=== PATIENT | male | born 1935 | race Caucasian/White ===

== ENCOUNTER 2016-05-05 14:28 | Emergency (ER) | payer MEDICARE ==
[~2016-05-05] VITALS: Ht 170.2 cm; Wt 87.1 kg
[~2016-05-05 14:28] MED LIST: ACET500T68 PO; ACYC400T PO; ALBU2.5V13 IH; ASPI81TA2 PO; BUDE10.2 IH; CARV3.122 PO; CYAN10005 PO; DOXA4TAB3 PO; FLUT16SP NS; FURO40TA4 PO; HYDR-2762 PO; HYDR-2868 PO; HYDR-963 PO; LEVO500T38 PO; MIRT7.5T8 PO; MONT10TA6 PO; MULT-658 PO; OMEP40CA5 PO; POTA20TA12 PO; PRED10TA16 PO; PRED20TA PO; SIMV20TA3 PO
--- NOTE | 2016-05-05 15:20 | PHYS DOC ---
Past Medical History Past Medical History: Anemia, CHF, COPD, DVT, Hypertension Past Surgical History: Appendectomy, Other Additional Past Surgical Histo: cardiac stents Alcohol Use: None Drug Use: None Adult General Chief Complaint Chief Complaint: LOWER BACK PAIN HPI HPI Patient is a 81 year old male who drove himself to the ED with the complaint of severe low back pain for about 4 or 5 days. It did not begin suddenly. He cannot remember how it began. He did not injure himself. It's been increasingly severe over that time. He can't hardly get his shoes or socks on because it hurts so much. It does not radiate down either leg. He's had no weakness of the legs. No incontinence. He had back surgery about 5 years ago, Dr. Martin, thinks it had something to do with the disc. Patient says he takes hydrocodone 10/325, he took one this morning and 1 about 30 minutes prior to me seeing him, and it is not helping. He said what does help his back is when he is on a high-dose of prednisone. He has COPD and when he gets wheezy they put him on a prednisone taper when his prednisone dose is on the higher side, it helps his back pain. He just got off a prednisone taper about 3 or 4 days ago, still on 5 mg daily. I think maybe that his baseline dose. His breathing is fine. He denies UTI symptoms. Denies fever or chills. Denies injury. Denies radiation of the pain. PCP Dr. Ashley Fierro Review of Systems Review of Systems Constitutional: Denies fever or chills [] Eyes: Denies change in visual acuity, redness, or eye pain [] HENT: Denies nasal congestion or sore throat [] Respiratory: Denies cough or shortness of breath , he has COPD, it is currently not bothering him Cardiovascular: Denies chest pain GI: Denies abdominal pain, nausea, vomiting, bloody stools or diarrhea [] : Denies dysuria or hematuria or urinary incontinence Musculoskeletal: As in history of present illness Integument: Denies rash or skin lesions [] Neurologic: Denies headache, focal weakness or sensory changes [] Current Medications Current Medications Current Medications Medications (Trade) Dose Ordered Sig/Juhi Start Time Stop Time Status Last Admin Dose Admin Ketorolac Tromethamine (Toradol Im) 30 mg 1X ONCE 05/05/16 15:30 05/05/16 15:34 DC 05/05/16 16:02 30 MG Morphine Sulfate 5 mg 1X ONCE 05/05/16 15:30 05/05/16 15:35 DC 05/05/16 16:01 5 MG Allergies Allergies Allergies Coded Allergies Type Severity Reaction Last Updated Verified Sulfa (Sulfonamide Antibiotics) Allergy Intermediate 03/24/14 Yes clopidogrel Allergy Intermediate 03/24/14 Yes valsartan Allergy Intermediate 03/24/14 Yes warfarin Allergy Intermediate 03/24/14 Yes Physical Exam Physical Exam Constitutional: Well developed, well nourished, no acute distress, non-toxic appearance. Alert, mentating normally. He has difficulty sitting up on the cart or turning to the side for exam because of the back pain. HENT: Normocephalic, atraumatic, bilateral external ears normal, bilateral hearing aids, nose normal. [] Eyes: conjunctiva normal, no discharge. [] Neck: Normal range of motion, no stridor. [] Cardiovascular:Heart rate regular rhythm, no murmur [] Lungs & Thorax: Bilateral breath sounds clear to auscultation [] Abdomen: Bowel sounds normal, soft, no tenderness, no masses, no pulsatile masses. Obese but nondistended. Skin: Warm, dry, no erythema, no rash. [] Back: No tenderness, no CVA tenderness. No skin abnormalities over the area of pain. Patient indicates the area of pain to the right of the lumbar spine, more or less over the right posterior superior iliac spine. There is no area of tenderness or palpable muscle tenderness, no swelling or fluctuance, in the area. Extremities: No tenderness, no cyanosis, no clubbing, ROM intact, no edema. Both lower extremities have normal 5/5 or see flexion and plantar flexion strength. Neurologic: Alert and oriented X 3, normal motor function, normal sensory function, no focal deficits noted. [] Current Patient Data Vital Signs Vital Signs Date Time Temp Pulse Resp B/P Pulse Ox O2 Delivery O2 Flow Rate FiO2 05/05/16 16:06 64 18 151/75 95 05/05/16 14:55 98.5 Room Air 98.5 Lab Values Laboratory Tests Test 05/05/16 15:15 Urine Collection Type Unknown Urine Color Yellow Urine Clarity Clear Urine pH 6.0 Urine Specific Mather 1.020 Urine Protein Negativemg/dL (NEG-TRACE) Urine Glucose (UA) Negativemg/dL (NEG) Urine Ketones (Stick) Negativemg/dL (NEG) Urine Blood Negative (NEG) Urine Nitrite Negative (NEG) Urine Bilirubin Negative (NEG) Urine Urobilinogen Dipstick 0.2mg/dL (0.2 mg/dL) Urine Leukocyte Esterase Negative (NEG) Urine RBC 0/HPF (0-2) Urine WBC 0/HPF (0-4) Urine Squamous Epithelial Cells Occ/LPF Urine Bacteria 0/HPF (0-FEW) Urine Mucus Slight/LPF EKG EKG [] Radiology/Procedures Radiology/Procedures Lumbar spine and AP pelvis x-rays read by me. No acute findings are identified. [] Course & Med Decision Making Course & Med Decision Making Pertinent Labs and Imaging studies reviewed. (See chart for details) 81-year-old male with what sounds like an exacerbation of chronic or recurrent lower back pain of a musculoskeletal type. I offered him pain medication in the ED but he drove himself here and I told him he will not be able to drive home, he is considering whether he wants to do that and call for a ride. In the meantime we will check urinalysis and x-rays. The patient ended up deciding to call his son and so was given an injection of Toradol 30 mg IM and morphine 5 mg IM. I reviewed his previous kidney function so I cut his Toradol dosing in half. Urinalysis negative for acute findings. Lumbar and pelvis x-rays negative for acute findings. I believe the safest short-term solution would be to increase his prednisone dose again and started him on a taper and encourage him to see Dr. Fierro as soon as possible. He may need further imaging like an MRI, may need referral to pain management, or it may be best to just see if this prednisone taper works for him, we will leave that up to him to discuss with Dr. Fierro. [] Dragon Disclaimer Dragon Disclaimer This electronic medical record was generated, in whole or in part, using a voice recognition dictation system. Departure Departure Impression: Primary Impression: Low back pain Disposition: 01 HOME, SELF-CARE Condition: STABLE Referrals: MARCELLUS FIERRO MD (PCP) Patient Instructions: Back Pain, Adult, [id number] Additional Instructions: As we discussed, you should not drive within 6-8 hours after taking a dose of hydrocodone or after the opiate injection that you were given here in the emergency department. Even if you do not feel sleepy, these medications will they'll your reflexes. Today, x-rays and urine test showed nothing that would be causing your pain. I believe it is possibly a pinched nerve or disc type of back pain or arthritis related. Prednisone is a good anti-inflammatory that is safe and will not hurt your kidneys. I'd like you to start an increased dose of prednisone with a taper as follows: Today, Friday, 40 mg, this was given in the emergency department Friday, Friday, Friday 40 mg Next 4 days, 30 mg Next 4 days, 20 mg Next 4 days, 10 mg Then return to 5 mg daily Call tomorrow morning for an appointment with Dr. Fierro as soon as possible to follow-up for possibly more tests or referral to pain management. CAPRICE VEAG MD May 05, 2016 15:20
[2016-05-05] MEDS ORDERED: MORPHINE SULFATE 10 MG/ML VIAL. IM ONE (15:30)
[2016-05-05] MEDS ORDERED: KETOROLAC TROMETHAMINE 60 MG/2 ML SYRINGE. IM ONE (15:30)
[2016-05-05 15:34] LABS: BILIRUBIN,URINE NEGATIVE (NEG); GLUCOSE,URINE NEGATIVE (NEG); NITRITE,URINE NEGATIVE (NEG); PROTEIN,URINE NEGATIVE (NEG-TRACE); UROBILINOGEN,URINE 0.2 mg/dL (0.2 mg/dL)
[2016-05-05 15:59] LABS: BACTERIA,URINE 0 /HPF (0-FEW); RBC,URINE 0 /HPF (0-2); SQUAMOUS EPITHELIAL CELL,UR OCC /LPF; WBC,URINE 0 /HPF (0-4)
[2016-05-05] MEDS ORDERED: PREDNISONE 10 MG TABLET PO ONE (16:15)
--- NOTE | 2016-05-05 16:29 | RAD ---
Lumbar spine, 5 views, 05/05/2016: History: Back pain The bony structures are demineralized. The lumbar vertebral heights are well-maintained. There is moderate disc space narrowing at L4-5 with a vacuum disc phenomena and moderate marginal spurring. There are mild scattered spurs at other levels in the mid and upper lumbar spine. There are mild degenerative changes involving facet joints in the lower lumbar spine. There is no evidence of spondylolysis. Severe aortoiliac calcific plaquing is present. A vascular stent is present at the right common iliac level. An inferior vena cava filter is present at L2. IMPRESSION: 1. Moderate multilevel degenerative change, most severe at the L4-5 disc level. 2. No acute bony abnormality is detected.
--- NOTE | 2016-05-05 16:31 | RAD ---
Pelvis, single view, 05/05/2016: History: Pain No fracture or destructive bony lesion is seen. The hip joint spaces are fairly well-preserved with only mild marginal spurring. Degenerative changes are noted in the lower lumbar spine. Extensive aortoiliac calcific plaquing is present. IMPRESSION: No acute pelvic abnormality is detected.
[2016-05-05 16:35] VITALS: BP 151/78
== END 2016-05-05 16:37 | disposition home or self-care (01) ==
LOC: ER 14:28
DX: M54.5 Low back pain (principal); J44.9 Chronic obstructive pulmonary disease, unspecified; I11.0 Hypertensive heart disease with heart failure; I50.9 Heart failure, unspecified; Z95.5 Presence of coronary angioplasty implant and graft; Z88.8 Allergy status to other drugs, medicaments and biological substances; Z88.2 Allergy status to sulfonamides; Z86.718 Personal history of other venous thrombosis and embolism
CPT/HCPCS: 72110; 72170; 81001; 96372; 99285; J1885; J2270; J7512

== ENCOUNTER → 2017-07-29 | Outpatient (CLI) | payer BC | END | disposition home or self-care (01) | LOC: RAD 12:27 | DX: J18.9 Pneumonia, unspecified organism (principal); R91.8 Other nonspecific abnormal finding of lung field | CPT/HCPCS: 71046 ==

== ENCOUNTER 2017-08-30 15:05 | Emergency (ER) | payer BC ==
[2017-08-30] MEDS: IV NORMAL SALINE 500ML BAG 500 ML IV (15:45)
[2017-08-30 15:52] LABS: BILIRUBIN,URINE MODERATE (NEG); CLARITY,URINE CLEAR; COLOR,URINE AMBER; GLUCOSE,URINE NEGATIVE (NEG); NITRITE,URINE NEGATIVE (NEG); PH,URINE 5.5; PROTEIN,URINE NEGATIVE (NEG-TRACE)
[2017-08-30 15:59] LABS: ADD MAN DIFF? NO
[2017-08-30] MEDS: IPRATRPIUM/ALBUTEROL 0.5/2.5MG 3 ML NEBU. NEB (15:59)
[2017-08-30 16:02] LABS: BASO # 0.1 x10^3/uL (0.0-0.2); BASO % 1 % (0-3); EOS # 1.2 x10^3/uL (0.0-0.7); EOS % 14 % (0-3); HEMATOCRIT 31.7 % (39.0-53.0); HEMOGLOBIN 10.6 g/dL (13.0-17.5); LYMPH # 1.2 x10^3/uL (1.0-4.8); LYMPH % 14 % (24-48); MEAN CORPUSCULAR HEMOGLOBIN 31 pg (25-35); MEAN CORPUSCULAR HGB CONC 33 g/dL (31-37); MEAN CORPUSCULAR VOLUME 94 fL (79-100); MONO # 0.6 x10^3/uL (0.0-1.1); MONO % 7 % (0-9); NEUT # 5.6 x10^3uL (1.8-7.7); NEUT % 64 % (31-73); PLATELET COUNT 200 x10^3/uL (140-400); RED BLOOD COUNT 3.37 x10^6/uL (4.30-5.70); RED CELL DISTRIBUTION WIDTH 14.4 % (11.5-14.5); WHITE BLOOD COUNT 8.7 x10^3/uL (4.0-11.0)
[2017-08-30 16:05] LABS: BACTERIA,URINE 0 /HPF (0-FEW); HYALINE CASTS, URINE MODERATE /HPF; RBC,URINE 0 /HPF (0-2); WBC,URINE OCC /HPF (0-4)
[2017-08-30 16:11] LABS: ANION GAP 10 (6-14); BLOOD UREA NITROGEN 20 mg/dL (8-26); BUN/CREATININE RATIO 10 (6-20); CALCIUM 9.1 mg/dL (8.5-10.1); CARBON DIOXIDE 28 mmol/L (21-32); CHLORIDE 104 mmol/L (98-107); CREATININE 2.1 mg/dL (0.7-1.3); GFR 30.2; GLUCOSE 102 mg/dL (70-99); POTASSIUM 4.6 mmol/L (3.5-5.1); SODIUM 142 mmol/L (136-145)
[2017-08-30 16:18] LABS: ALBUMIN 3.1 g/dL (3.4-5.0); ALBUMIN/GLOBULIN RATIO 0.8 (1.0-1.7); ALK PHOS 76 U/L (46-116); ALT (SGPT) 18 U/L (16-63); AST (SGOT) 36 U/L (15-37); CREATINE KINASE 155 U/L (39-308); LIPASE 100 U/L (73-393); TOTAL BILIRUBIN 0.8 mg/dL (0.2-1.0); TOTAL PROTEIN 7.2 g/dL (6.4-8.2)
[2017-08-30 16:20] LABS: LACTIC ACID 1.5 mmol/L (0.4-2.0); TROPONINI < 0.017 ng/mL (0.000-0.055)
[2017-08-30] MEDS: predniSONE 20 MG TABLET PO (16:49)
[2017-08-30] MEDS: DOXYCYCLINE HYCLATE 100 MG TABLET PO (16:49)
== END 2017-08-30 17:12 | disposition home or self-care (01) ==
LOC: ER 15:05
DX: J44.9 Chronic obstructive pulmonary disease, unspecified (principal); I11.0 Hypertensive heart disease with heart failure; I50.9 Heart failure, unspecified; E78.00 Pure hypercholesterolemia, unspecified; Z90.49 Acquired absence of other specified parts of digestive tract; Z88.2 Allergy status to sulfonamides; Z88.8 Allergy status to other drugs, medicaments and biological substances
CPT/HCPCS: 36415; 71045; 80053; 81001; 82550; 83605; 83690; 84484; 85025; 87040; 93005; 94640; 96360; 99285; J7040; J7512; J7620

== ENCOUNTER 2017-12-27 20:33 | Emergency (ER) | payer BC ==
[~2017-12-27] VITALS: Ht 165.1 cm; Wt 88.5 kg
[~2017-12-27 20:33] MED LIST changes: -ALBU2.5V13 IH; +ALBU2.5V14 IH; +ASPI-630 PO; -ASPI81TA2 PO; +DOXY100T9 PO; -LEVO500T38 PO; +LEVO500T59 PO; +PRED-220 PO
[2017-12-27 21:09] LABS: BILIRUBIN,URINE SMALL (NEG); CLARITY,URINE CLEAR; COLOR,URINE YELLOW; NITRITE,URINE NEGATIVE (NEG); PROTEIN,URINE NEGATIVE (NEG-TRACE); UROBILINOGEN,URINE 0.2 mg/dL (0.2 mg/dL)
[2017-12-27 21:22] LABS: BACTERIA,URINE 0 /HPF (0-FEW); HYALINE CASTS, URINE MANY /HPF; RBC,URINE 0 /HPF (0-2); WAXY CASTS,URINE OCCASIONAL /HPF
[2017-12-27 21:25] LABS: BASO % 1 % (0-3); EOS # 0.6 x10^3/uL (0.0-0.7); EOS % 12 % (0-3); HEMATOCRIT 27.8 % (39.0-53.0); HEMOGLOBIN 9.5 g/dL (13.0-17.5); LYMPH # 1.4 x10^3/uL (1.0-4.8); LYMPH % 25 % (24-48); MEAN CORPUSCULAR HEMOGLOBIN 30 pg (25-35); MEAN CORPUSCULAR HGB CONC 34 g/dL (31-37); MEAN CORPUSCULAR VOLUME 89 fL (79-100); MONO # 0.8 x10^3/uL (0.0-1.1); MONO % 14 % (0-9); NEUT # 2.6 x10^3uL (1.8-7.7); NEUT % 48 % (31-73); PLATELET COUNT 154 x10^3/uL (140-400); RED BLOOD COUNT 3.14 x10^6/uL (4.30-5.70); RED CELL DISTRIBUTION WIDTH 14.6 % (11.5-14.5); WHITE BLOOD COUNT 5.5 x10^3/uL (4.0-11.0)
[2017-12-27 21:37] LABS: CALCIUM 9.1 mg/dL (8.5-10.1); CREATININE 2.1 mg/dL (0.7-1.3); GFR 30.2; POTASSIUM 4.4 mmol/L (3.5-5.1)
[2017-12-27 21:42] LABS: ALBUMIN 3.3 g/dL (3.4-5.0); ALBUMIN/GLOBULIN RATIO 0.8 (1.0-1.7); TOTAL BILIRUBIN 0.6 mg/dL (0.2-1.0); TOTAL PROTEIN 7.2 g/dL (6.4-8.2)
--- NOTE | 2017-12-27 22:13 | RAD ---
PQRS Compliance statement: One or more of the following individualized dose reduction techniques were utilized for this examination: 1. Automated exposure control. 2. Adjustment of the mA and/or kV according to patient size. 3. Use of iterative reconstruction technique. Indication:severe rt flank pain, prior sent TECHNIQUE: CT abdomen and pelvis without IV contrast with multiplanar reformats. COMPARISON: 07/02/2017 FINDINGS: Limited evaluation of solid abdominal and pelvic organs due to lack of IV contrast. Heart is normal in size. No pericardial or pleural effusion. Motion artifact is seen in the lung bases however lung bases appear grossly clear. Stable low attenuating lesion is seen in segment IVb of the liver measuring 3.7 x 2.8 cm. Otherwise, noncontrast appearance of the liver, spleen, pancreas, adrenals within normal limits. Concentrated bile or sludge is seen in the gallbladder. No hydronephrosis or radiopaque renal stones. Stable partially exophytic 2.8 x 2.3 cm low attenuating lesion is seen in the right kidney most likely a simple cyst. Another 2.8 x 2.8 cm low attenuating lesion seen in the inferior pole of the right kidney demonstrating slightly higher attenuation. Infrarenal IVC filter noted. No free pelvic fluid or ascites. No enlarged retroperitoneal or pelvic adenopathy. Diffuse moderate atherosclerotic calcifications are seen of the abdominal aorta. There is mild ectasia of the abdominal aorta just before bifurcation measuring 3 cm in diameter. No bowel obstruction. Diffuse colonic diverticulosis. Appendix not visualized most is surgically absent. Stable posterior bladder diverticulum is seen. Circumferential urinary bladder wall thickening seen. The prostate and seminal vesicles show no large mass. No pneumoperitoneum or pneumatosis intestinalis. No suspicious bony lesion. Stable mild loss of L3 vertebral body height. IMPRESSION: Limited evaluation of solid abdominal and pelvic organs due to lack of IV contrast. 1. No nephrolithiasis or hydronephrosis. Couple of low attenuating lesions in the right kidney most likely simple and minimally comminuted cysts. However, one of the cysts demonstrate scattered high attenuation. Nonemergent ultrasound recommended. 2. Stable low attenuating lesion in liver. Differential diagnoses include cystic biliary hamartoma or hemangioma. Nonemergent Ultrasound of the liver recommended. 3. Diffuse colonic diverticulosis without diverticulitis. 4. Slight circumferential wall thickening of the urinary bladder. Findings may be secondary to suboptimal distention or cystitis. Clinically correlate with urinalysis. 5. Diffuse atherosclerotic calcifications of the abdominal aorta and bilateral iliac arteries with mild ectasia of the infrarenal aorta. Electronically signed by: Bora Lopez DO (12/27/2017 10:10 PM) [facility]
--- NOTE | 2017-12-27 22:16 | RAD ---
PQRS Compliance Statement: One or more of the following individualized dose reduction techniques were utilized for this examination: 1. Automated exposure control 2. Adjustment of the mA and/or kV according to patient size 3. Use of iterative reconstruction technique CT head and cervical spine without contrast 12/27/2017 9:41 PM INDICATION: Weakness and neck pain with recent falls. COMPARISON: CT cervical spine December 10, 2012 TECHNIQUE: Multiple axial CT images of the head were obtained from skull base through the vertex without intravenous contrast. Multiple axial CT images of the cervical spine were obtained without intravenous contrast. Coronal and sagittal reformats are provided. FINDINGS: Head: Ventricles, sulci and basal cisterns are prominent compatible with age-related degenerative changes. Low-attenuation in the periventricular white matter is suggestive of chronic small vessel ischemic changes. There is no hydrocephalus. Smith-white matter differentiation is normal. There is no acute intracranial hemorrhage. There is no mass, mass effect or midline shift. Posterior fossa is normal in appearance. Visualized portions of the orbits are normal. Opacification of the left maxillary sinus with atelectasis of the sinus. There is a left mastoid effusion. Scalp and calvaria are normal. Cervical spine: There is minimal retrolisthesis of C2 on C3 and C3 on C4 and C4 on C5. Skull base is intact. Craniocervical junction is normal in appearance. Atlantoaxial articulation is normal. Vertebral body heights are maintained without evidence for acute fracture. There is moderate disc height loss at C2-C3, C3-C4 and C4-C5. Endplate sclerosis and remodeling is noted at C3-C4. There is moderate left neuroforaminal stenosis at C3-C4 secondary to posterior disc osteophyte complex, facet and uncovertebral joint disease. There is mild osseous neuroforaminal stenosis. At C4-C5, there is a posterior disc osteophyte complex, facet and uncovertebral joint disease resulting in moderate bilateral neuroforaminal stenosis and mild to moderate spinal canal stenosis. At C5-C6, there is a posterior disc osteophyte complex with facet and uncovertebral joint disease resulting in mild to moderate left and mild right neuroforaminal stenosis and mild spinal canal stenosis. There is no prevertebral soft tissue swelling. Thyroid gland is normal in appearance. Right apical pleural-parenchymal scarring is identified. Atherosclerotic calcifications at the carotid bifurcations noted IMPRESSION: 1. No acute intracranial hemorrhage. Generalized cerebral volume loss. Low-attenuation in the periventricular white matter is suggestive of chronic small vessel ischemic changes. 2. No acute fracture of the cervical spine. Moderate cervical spondylosis with multilevel retrolisthesis. Electronically signed by: Latosha Christianson MD (12/27/2017 10:13 PM) [id number]
[2017-12-27] MEDS ORDERED: HYDR-2758 PO (23:24)
--- NOTE | 2017-12-27 23:25 | PHYS DOC ---
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 He complains of right flank pain, neck pain, and tremors in his bilateral hands. Patient states that the flank pain began yesterday, the neck pain began today, and the tremors in his hands began approximately 3 weeks ago. He denies any fever, nausea, vomiting, diarrhea, abdominal pain, dysuria, hematuria, shortness of breath, or chest pain. He states that he has had difficulty initiating his urine stream for the last 2-3 weeks. Patient states that the flank pain increases with movement, it does not radiate into either of his legs. He denies any weakness, numbness, or tingling. States that he tripped and fell 2 weeks ago. He denies any complaints from the fall. Review of Systems Review of Systems Constitutional: Denies fever or chills [] Eyes: Denies change in visual acuity, redness, or eye pain [] HENT: Denies nasal congestion or sore throat, reports neck pain [] Respiratory: Denies cough or shortness of breath [] Cardiovascular: Denies chest pain or palpitations GI: Denies abdominal pain, nausea, vomiting, bloody stools or diarrhea [] : Denies dysuria,increased urine frequency, or hematuria; reports difficulty initiating urine stream x2-3 weeks and R flank pain Musculoskeletal: Denies joint pain, reports right low back pain Integument: Denies rash or skin lesions [] Neurologic: Denies headache, focal weakness or sensory changes [] All other systems were reviewed and found to be within normal limits, except as documented in this note. Current Medications Current Medications Current Medications Medications (Trade) Dose Ordered Sig/Juhi Start Time Stop Time Status Last Admin Dose Admin Acetaminophen/ Hydrocodone Bitart (Lortab 5/325) 1 tab 1X ONCE 12/27/17 23:30 12/27/17 23:31 DC 12/27/17 23:29 1 TAB Allergies Allergies Allergies Coded Allergies Type Severity Reaction Last Updated Verified Sulfa (Sulfonamide Antibiotics) Allergy Intermediate 03/24/14 Yes clopidogrel Allergy Intermediate 03/24/14 Yes valsartan Allergy Intermediate 03/24/14 Yes warfarin Allergy Intermediate 03/24/14 Yes Physical Exam Physical Exam Constitutional: Well developed, well nourished, no acute distress, non-toxic appearance. [] HENT: Normocephalic, atraumatic, bilateral external ears normal, oropharynx moist, no oral exudates, nose normal. [] Eyes: conjunctiva normal, no discharge. [] Neck: Normal range of motion, no bony tenderness, supple, no stridor, chin to chest normal. [] Cardiovascular:Heart rate regular rhythm, no murmur [] Lungs & Thorax: Bilateral breath sounds clear to auscultation [] Abdomen: Bowel sounds normal, soft, no tenderness, no masses, no pulsatile masses. [] Skin: Warm, dry, no erythema, no rash. [] Back: R lateral low back pain to palpation Extremities: No tenderness, no cyanosis, no edema. [] Neurologic: Alert and oriented X 3, normal motor function, normal sensory function, no focal deficits noted. [] Psychologic: Affect normal, judgement normal, mood normal. [] Current Patient Data Vital Signs Vital Signs Date Time Temp Pulse Resp B/P (MAP) Pulse Ox O2 Delivery O2 Flow Rate FiO2 12/27/17 23:30 79 20 152/72 (98) 98 Room Air 12/27/17 20:35 99.2 99.2 Lab Values Laboratory Tests Test 12/27/17 20:38 12/27/17 21:15 Urine Collection Type Unknown Urine Color Yellow Urine Clarity Clear Urine pH 5.0 Urine Specific [place] 1.020 Urine Protein Negative mg/dL (NEG-TRACE) Urine Glucose (UA) Negative mg/dL (NEG) Urine Ketones (Stick) Negative mg/dL (NEG) Urine Blood Negative (NEG) Urine Nitrite Negative (NEG) Urine Bilirubin Small (NEG) Urine Urobilinogen Dipstick 0.2 mg/dL (0.2 mg/dL) Urine Leukocyte Esterase Negative (NEG) Urine RBC 0 /HPF (0-2) Urine WBC 1-4 /HPF (0-4) Urine Bacteria 0 /HPF (0-FEW) Urine Hyaline Casts Many /HPF Urine Waxy Casts Occasional /HPF Urine Mucus Marked /LPF White Blood Count 5.5 x10^3/uL (4.0-11.0) Red Blood Count 3.14 x10^6/uL (4.30-5.70) L Hemoglobin 9.5 g/dL (13.0-17.5) L Hematocrit 27.8 % (39.0-53.0) L Mean Corpuscular Volume 89 fL (79-100) Mean Corpuscular Hemoglobin 30 pg (25-35) Mean Corpuscular Hemoglobin Concent 34 g/dL (31-37) Red Cell Distribution Width 14.6 % (11.5-14.5) H Platelet Count 154 x10^3/uL (140-400) Neutrophils (%) (Auto) 48 % (31-73) Lymphocytes (%) (Auto) 25 % (24-48) Monocytes (%) (Auto) 14 % (0-9) H Eosinophils (%) (Auto) 12 % (0-3) H Basophils (%) (Auto) 1 % (0-3) Neutrophils # (Auto) 2.6 x10^3uL (1.8-7.7) Lymphocytes # (Auto) 1.4 x10^3/uL (1.0-4.8) Monocytes # (Auto) 0.8 x10^3/uL (0.0-1.1) Eosinophils # (Auto) 0.6 x10^3/uL (0.0-0.7) Basophils # (Auto) 0.0 x10^3/uL (0.0-0.2) Sodium Level 145 mmol/L (136-145) Potassium Level 4.4 mmol/L (3.5-5.1) Chloride Level 108 mmol/L (98-107) H Carbon Dioxide Level 28 mmol/L (21-32) Anion Gap 9 (6-14) Blood Urea Nitrogen 24 mg/dL (8-26) Creatinine 2.1 mg/dL (0.7-1.3) H Estimated GFR (Cockcroft-Gault) 30.2 BUN/Creatinine Ratio 11 (6-20) Glucose Level 93 mg/dL (70-99) Calcium Level 9.1 mg/dL (8.5-10.1) Total Bilirubin 0.6 mg/dL (0.2-1.0) Aspartate Amino Transferase (AST) 24 U/L (15-37) Alanine Aminotransferase (ALT) 18 U/L (16-63) Alkaline Phosphatase 64 U/L (46-116) Total Protein 7.2 g/dL (6.4-8.2) Albumin 3.3 g/dL (3.4-5.0) L Albumin/Globulin Ratio 0.8 (1.0-1.7) L Laboratory Tests 12/27/17 21:15 Laboratory Tests 12/27/17 21:15 EKG EKG [] Radiology/Procedures Radiology/Procedures PROCEDURE: CT ABDOMEN PELVIS WO CONTRAST PQRS Compliance statement: One or more of the following individualized dose reduction techniques were utilized for this examination: 1. Automated exposure control. 2. Adjustment of the mA and/or kV according to patient size. 3. Use of iterative reconstruction technique. Indication:severe rt flank pain, prior sent TECHNIQUE: CT abdomen and pelvis without IV contrast with multiplanar reformats. COMPARISON: 07/02/2017 FINDINGS: Limited evaluation of solid abdominal and pelvic organs due to lack of IV contrast. Heart is normal in size. No pericardial or pleural effusion. Motion artifact is seen in the lung bases however lung bases appear grossly clear. Stable low attenuating lesion is seen in segment IVb of the liver measuring 3.7 x 2.8 cm. Otherwise, noncontrast appearance of the liver, spleen, pancreas, adrenals within normal limits. Concentrated bile or sludge is seen in the gallbladder. No hydronephrosis or radiopaque renal stones. Stable partially exophytic 2.8 x 2.3 cm low attenuating lesion is seen in the right kidney most likely a simple cyst. Another 2.8 x 2.8 cm low attenuating lesion seen in the inferior pole of the right kidney demonstrating slightly higher attenuation. Infrarenal IVC filter noted. No free pelvic fluid or ascites. No enlarged retroperitoneal or pelvic adenopathy. Diffuse moderate atherosclerotic calcifications are seen of the abdominal aorta. There is mild ectasia of the abdominal aorta just before bifurcation measuring 3 cm in diameter. No bowel obstruction. Diffuse colonic diverticulosis. Appendix not visualized most is surgically absent. Stable posterior bladder diverticulum is seen. Circumferential urinary bladder wall thickening seen. The prostate and seminal vesicles show no large mass. No pneumoperitoneum or pneumatosis intestinalis. No suspicious bony lesion. Stable mild loss of L3 vertebral body height. IMPRESSION: Limited evaluation of solid abdominal and pelvic organs due to lack of IV contrast. 1. No nephrolithiasis or hydronephrosis. Couple of low attenuating lesions in the right kidney most likely simple and minimally comminuted cysts. However, one of the cysts demonstrate scattered high attenuation. Nonemergent ultrasound recommended. 2. Stable low attenuating lesion in liver. Differential diagnoses include cystic biliary hamartoma or hemangioma. Nonemergent Ultrasound of the liver recommended. 3. Diffuse colonic diverticulosis without diverticulitis. 4. Slight circumferential wall thickening of the urinary bladder. Findings may be secondary to suboptimal distention or cystitis. Clinically correlate with urinalysis. 5. Diffuse atherosclerotic calcifications of the abdominal aorta and bilateral iliac arteries with mild ectasia of the infrarenal aorta. [] PROCEDURE: CT HEAD AND CERVICAL SPINE WO RS Compliance Statement: One or more of the following individualized dose reduction techniques were utilized for this examination: 1. Automated exposure control 2. Adjustment of the mA and/or kV according to patient size 3. Use of iterative reconstruction technique CT head and cervical spine without contrast 12/27/2017 9:41 PM INDICATION: Weakness and neck pain with recent falls. COMPARISON: CT cervical spine December 10, 2012 TECHNIQUE: Multiple axial CT images of the head were obtained from skull base through the vertex without intravenous contrast. Multiple axial CT images of the cervical spine were obtained without intravenous contrast. Coronal and sagittal reformats are provided. FINDINGS: Head: Ventricles, sulci and basal cisterns are prominent compatible with age-related degenerative changes. Low-attenuation in the periventricular white matter is suggestive of chronic small vessel ischemic changes. There is no hydrocephalus. Smith-white matter differentiation is normal. There is no acute intracranial hemorrhage. There is no mass, mass effect or midline shift. Posterior fossa is normal in appearance. Visualized portions of the orbits are normal. Opacification of the left maxillary sinus with atelectasis of the sinus. There is a left mastoid effusion. Scalp and calvaria are normal. Cervical spine: There is minimal retrolisthesis of C2 on C3 and C3 on C4 and C4 on C5. Skull base is intact. Craniocervical junction is normal in appearance. Atlantoaxial articulation is normal. Vertebral body heights are maintained without evidence for acute fracture. There is moderate disc height loss at C2-C3, C3-C4 and C4-C5. Endplate sclerosis and remodeling is noted at C3-C4. There is moderate left neuroforaminal stenosis at C3-C4 secondary to posterior disc osteophyte complex, facet and uncovertebral joint disease. There is mild osseous neuroforaminal stenosis. At C4-C5, there is a posterior disc osteophyte complex, facet and uncovertebral joint disease resulting in moderate bilateral neuroforaminal stenosis and mild to moderate spinal canal stenosis. At C5-C6, there is a posterior disc osteophyte complex with facet and uncovertebral joint disease resulting in mild to moderate left and mild right neuroforaminal stenosis and mild spinal canal stenosis. There is no prevertebral soft tissue swelling. Thyroid gland is normal in appearance. Right apical pleural-parenchymal scarring is identified. Atherosclerotic calcifications at the carotid bifurcations noted IMPRESSION: 1. No acute intracranial hemorrhage. Generalized cerebral volume loss. Low-attenuation in the periventricular white matter is suggestive of chronic small vessel ischemic changes. 2. No acute fracture of the cervical spine. Moderate cervical spondylosis with multilevel retrolisthesis. Course & Med Decision Making Course & Med Decision Making Pertinent Labs and Imaging studies reviewed. (See chart for details) Dx neck pain, Flank pain, bilateral tremor of hands. CT head and neck were not concerning for any acute findings. CT abd/pel not concerning for kidney stone, pyelonephritis, hydronephrosis, or acute abdominal process. Urinalysis was negative for UTI, lab work not concerning for increased renal failure, worsening anemia, dehydration, or infection. Discussed these findings with the patient and his family. Pt was offered admission for further evaluation. Pt and family declined admission and opted to go home with pain medication to follow up with PCP next week. Patient verbalized an understanding of home care, medications, follow-up, and return to ED instructions and was in agreement with the plan of care. [] Dragon Disclaimer Dragon Disclaimer This electronic medical record was generated, in whole or in part, using a voice recognition dictation system. Departure Departure Impression: Primary Impression: Neck pain Additional Impressions: Right flank pain Tremor of both hands Disposition: 01 HOME, SELF-CARE Condition: STABLE Referrals: MARCELLUS FIERRO MD (PCP) Patient Instructions: Flank Pain, [id number], Tremor Additional Instructions: Fill the prescription and use it as directed. He may apply heat or ice to the sore areas for comfort. Follow-up with your doctor next week for further evaluation of tremors and pain. Return to the emergency room if symptoms worsen. Scripts Hydrocodone Bit/Acetaminophen (HYDROCODONE-APAP 5-325 ) 1 Each Tablet 1 TAB PO PRN Q6HRS PRN for PAIN for 2 Days, TAB 8 Refills Prov: DOTTY SAPP PHOTOGRAPH EDITOR 12/27/17 Attending Signature Attending Signature I have reviewed the PA/SURVEILLANCE DIRECTOR's note and plan of care. I was available for consultation as needed during the patient's visit in the emergency department. I agree with the clinical impression, plan, and disposition. Problem Qualifiers DOTTY SAPP APRN Dec 27, 2017 23:24 FAUZIA ALLAN DO Dec 28, 2017 04:36
[2017-12-27 23:30] VITALS: BP 152/72
[2017-12-27] MEDS ORDERED: HYDROcodone/APAP 5/325MG 1 TAB TABLET PO ONE (23:30)
== END 2017-12-28 | disposition home or self-care (01) ==
LOC: ER 20:33
DX: R10.9 Unspecified abdominal pain (principal); M54.2 Cervicalgia; R25.1 Tremor, unspecified; J44.9 Chronic obstructive pulmonary disease, unspecified; E78.00 Pure hypercholesterolemia, unspecified; I11.0 Hypertensive heart disease with heart failure; I50.9 Heart failure, unspecified; Z86.718 Personal history of other venous thrombosis and embolism; I25.2 Old myocardial infarction; Z90.89 Acquired absence of other organs; Z95.5 Presence of coronary angioplasty implant and graft; Z88.2 Allergy status to sulfonamides; Z88.8 Allergy status to other drugs, medicaments and biological substances
CPT/HCPCS: 36415; 70450; 72125; 74176; 80053; 81001; 85025; 99285-25

== ENCOUNTER 2018-09-08 16:37 | Inpatient (IN) | payer BC ==
[~2018-09-08] VITALS: Ht 160 cm; Wt 79.9 kg
[~2018-09-08 16:37] MED LIST changes: +ACET325T9 PO; +CARV3.1210 PO; -CARV3.122 PO; +DICL100G18 TP; +HYDR-2761 PO; -HYDR-2762 PO; +HYDR-2765 PO; +HYDR-3135 PO; -HYDR-963 PO; +IRON150C11 PO; +TIZA4TAB PO
[2018-09-08] MEDS ORDERED: methylPREDNISolone SOD SUCC PF 125 MG/2 ML VIAL. IV ONE (17:30)
[2018-09-08] MEDS ORDERED: IPRATRPIUM/ALBUTEROL 0.5/2.5MG 3 ML NEBU. NEB ONE (17:30)
--- NOTE | 2018-09-08 17:32 | PHYS DOC ---
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 Patient states that he had having increasing shortness of breath over the last week. States that he has developed a cough. States the cough is dry. States he feels like it is his COPD acting up. Denies fever, chest pain, lower leg swelling, abdominal pain, nausea/vomiting, headache, neck pain or dizziness. Review of Systems Review of Systems Constitutional: Denies fever or chills [] Eyes: Denies change in visual acuity, redness, or eye pain [] HENT: Denies nasal congestion or sore throat [] Respiratory: Complains of cough and shortness of breath. [] Cardiovascular: No additional information not addressed in HPI [] GI: Denies abdominal pain, nausea, vomiting, bloody stools or diarrhea [] : Denies dysuria or hematuria [] Musculoskeletal: Denies back pain or joint pain [] Integument: Denies rash or skin lesions [] Neurologic: Denies headache, focal weakness or sensory changes [] All other systems were reviewed and found to be within normal limits, except as documented in this note. Current Medications Current Medications Current Medications Medications (Trade) Dose Ordered Sig/Juhi Start Time Stop Time Status Last Admin Dose Admin Albuterol/ Ipratropium (Duoneb) 3 ml 1X ONCE 09/08/18 17:30 09/08/18 17:31 DC 09/08/18 17:48 3 ML Fentanyl Citrate (Fentanyl 2ml Vial) 50 mcg PRN Q1HR PRN 09/08/18 20:45 09/09/18 20:44 Methylprednisolone Sodium Succinate (SOLU-Medrol 125MG VIAL) 125 mg 1X ONCE 09/08/18 17:30 09/08/18 17:31 DC 09/08/18 18:20 125 MG Ondansetron HCl (Zofran) 4 mg PRN Q8HRS PRN 09/08/18 20:45 09/09/18 20:44 Allergies Allergies Allergies Coded Allergies Type Severity Reaction Last Updated Verified Sulfa (Sulfonamide Antibiotics) Allergy Intermediate 09/08/18 Yes clopidogrel Allergy Intermediate 09/08/18 Yes valsartan Allergy Intermediate 09/08/18 Yes warfarin Allergy Intermediate 09/08/18 Yes Physical Exam Physical Exam Constitutional: Well developed, well nourished, no acute distress, non-toxic appearance. [] HENT: Normocephalic, atraumatic, bilateral external ears normal, oropharynx moist, no oral exudates, nose normal. [] Eyes: PERRLA, EOMI, conjunctiva normal, no discharge. [] Neck: Normal range of motion, no tenderness, supple, no stridor. [] Cardiovascular:Heart rate regular rhythm, no murmur [] Lungs & Thorax: Moderate wheezing bilaterally. [] Abdomen: Bowel sounds normal, soft, no tenderness, no masses, no pulsatile masses. [] Skin: Warm, dry, no erythema, no rash. [] Back: No tenderness, no CVA tenderness. [] Extremities: No tenderness, no cyanosis, no clubbing, ROM intact, no edema. [] Neurologic: Alert and oriented X 3, normal motor function, normal sensory function, no focal deficits noted. [] Psychologic: Affect normal, judgement normal, mood normal. [] Current Patient Data Vital Signs Vital Signs Date Time Temp Pulse Resp B/P (MAP) Pulse Ox O2 Delivery O2 Flow Rate FiO2 09/08/18 17:51 98 Room Air 09/08/18 16:55 98.1 72 28 158/80 (106) 98.1 Lab Values Laboratory Tests Test 09/08/18 17:55 09/08/18 18:15 White Blood Count 6.1 x10^3/uL (4.0-11.0) Red Blood Count 3.22 x10^6/uL (4.30-5.70) L Hemoglobin 9.9 g/dL (13.0-17.5) L Hematocrit 29.9 % (39.0-53.0) L Mean Corpuscular Volume 93 fL (79-100) Mean Corpuscular Hemoglobin 31 pg (25-35) Mean Corpuscular Hemoglobin Concent 33 g/dL (31-37) Red Cell Distribution Width 14.5 % (11.5-14.5) Platelet Count 147 x10^3/uL (140-400) Neutrophils (%) (Auto) 87 % (31-73) H Lymphocytes (%) (Auto) 8 % (24-48) L Monocytes (%) (Auto) 5 % (0-9) Eosinophils (%) (Auto) 0 % (0-3) Basophils (%) (Auto) 0 % (0-3) Neutrophils # (Auto) 5.3 x10^3uL (1.8-7.7) Lymphocytes # (Auto) 0.5 x10^3/uL (1.0-4.8) L Monocytes # (Auto) 0.3 x10^3/uL (0.0-1.1) Eosinophils # (Auto) 0.0 x10^3/uL (0.0-0.7) Basophils # (Auto) 0.0 x10^3/uL (0.0-0.2) Segmented Neutrophils % 92 % (35-66) H Lymphocytes % 4 % (24-48) L Monocytes % 4 % (0-10) Toxic Granulation Slight Platelet Estimate Adequate (ADEQUATE) Sodium Level 144 mmol/L (136-145) Potassium Level 4.3 mmol/L (3.5-5.1) Chloride Level 109 mmol/L (98-107) H Carbon Dioxide Level 25 mmol/L (21-32) Anion Gap 10 (6-14) Blood Urea Nitrogen 34 mg/dL (8-26) H Creatinine 2.0 mg/dL (0.7-1.3) H Estimated GFR (Cockcroft-Gault) 31.9 BUN/Creatinine Ratio 17 (6-20) Glucose Level 167 mg/dL (70-99) H Calcium Level 8.3 mg/dL (8.5-10.1) L Total Bilirubin 0.3 mg/dL (0.2-1.0) Aspartate Amino Transferase (AST) 19 U/L (15-37) Alanine Aminotransferase (ALT) 24 U/L (16-63) Alkaline Phosphatase 52 U/L (46-116) Troponin I Quantitative < 0.017 ng/mL (0.000-0.055) DV-Ybh-M-Type Natriuretic Peptide 4426 pg/mL (0-449) H Total Protein 6.3 g/dL (6.4-8.2) L Albumin 3.3 g/dL (3.4-5.0) L Albumin/Globulin Ratio 1.1 (1.0-1.7) Urine Collection Type Unknown Urine Color Yellow Urine Clarity Clear Urine pH 5.0 Urine Specific [place] 1.020 Urine Protein Negative mg/dL (NEG-TRACE) Urine Glucose (UA) Negative mg/dL (NEG) Urine Ketones (Stick) Negative mg/dL (NEG) Urine Blood Negative (NEG) Urine Nitrite Negative (NEG) Urine Bilirubin Negative (NEG) Urine Urobilinogen Dipstick 0.2 mg/dL (0.2 mg/dL) Urine Leukocyte Esterase Negative (NEG) Urine RBC Occ /HPF (0-2) Urine WBC 0 /HPF (0-4) Urine Bacteria 0 /HPF (0-FEW) Urine Hyaline Casts Few /HPF Urine Mucus Mod /LPF Laboratory Tests 09/08/18 17:55 Laboratory Tests 09/08/18 17:55 EKG EKG [] Radiology/Procedures Radiology/Procedures []PROCEDURE: PORTABLE CHEST 1V AP portable chest radiograph 09/08/2018 Clinical History: Shortness of breath. An AP erect portable digital radiograph of the chest was obtained. Comparison study is dated 05/06/2018. The cardiac silhouette is borderline enlarged. Atherosclerotic calcification thoracic aorta is seen. The thoracic aorta is mildly tortuous. Areas of scarring and apical pleural thickening are seen involving both upper lobes. No acute pulmonary infiltrate is seen. No pleural effusion or pneumothorax is noted. The osseous structures are unchanged. Impression: No acute abnormality is seen. Course & Med Decision Making Course & Med Decision Making Pertinent Labs and Imaging studies reviewed. (See chart for details) []Discussed case with patients PCP, Dr. Fierro. 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 Agrees to admission and further management of patient. Patient stable for admission. Patient states he is feeling better after breathing treatments. Dragon Disclaimer Dragon Disclaimer This electronic medical record was generated, in whole or in part, using a voice recognition dictation system. Departure Departure Impression: Primary Impression: COPD with acute bronchitis Disposition: ADMITTED INPATIENT Condition: STABLE Referrals: MARCELLUS FIERRO MD (PCP) ZHANG HEAD September 08, 2018 17:32
[2018-09-08 18:10] LABS: BASO % 0 % (0-3); EOS % 0 % (0-3); HEMATOCRIT 29.9 % (39.0-53.0); HEMOGLOBIN 9.9 g/dL (13.0-17.5); LYMPH # 0.5 x10^3/uL (1.0-4.8); LYMPH % 8 % (24-48); MEAN CORPUSCULAR HEMOGLOBIN 31 pg (25-35); MEAN CORPUSCULAR HGB CONC 33 g/dL (31-37); MEAN CORPUSCULAR VOLUME 93 fL (79-100); MONO # 0.3 x10^3/uL (0.0-1.1); MONO % 5 % (0-9); NEUT # 5.3 x10^3uL (1.8-7.7); NEUT % 87 % (31-73); PLATELET COUNT 147 x10^3/uL (140-400); RED BLOOD COUNT 3.22 x10^6/uL (4.30-5.70); RED CELL DISTRIBUTION WIDTH 14.5 % (11.5-14.5); WHITE BLOOD COUNT 6.1 x10^3/uL (4.0-11.0)
--- NOTE | 2018-09-08 18:11 | RAD ---
AP portable chest radiograph 09/08/2018 Clinical History: Shortness of breath. An AP erect portable digital radiograph of the chest was obtained. Comparison study is dated 05/06/2018. The cardiac silhouette is borderline enlarged. Atherosclerotic calcification thoracic aorta is seen. The thoracic aorta is mildly tortuous. Areas of scarring and apical pleural thickening are seen involving both upper lobes. No acute pulmonary infiltrate is seen. No pleural effusion or pneumothorax is noted. The osseous structures are unchanged. Impression: No acute abnormality is seen. Electronically signed by: Jackson Gray MD (09/08/2018 6:08 PM) [facility]
[2018-09-08 18:24] LABS: BILIRUBIN,URINE NEGATIVE (NEG); CLARITY,URINE CLEAR; COLOR,URINE YELLOW; NITRITE,URINE NEGATIVE (NEG); PROTEIN,URINE NEGATIVE (NEG-TRACE); UROBILINOGEN,URINE 0.2 mg/dL (0.2 mg/dL)
[2018-09-08 18:26] LABS: CALCIUM 8.3 mg/dL (8.5-10.1); GFR 31.9; POTASSIUM 4.3 mmol/L (3.5-5.1)
[2018-09-08 18:30] LABS: BACTERIA,URINE 0 /HPF (0-FEW); HYALINE CASTS, URINE FEW /HPF; RBC,URINE OCC /HPF (0-2); WBC,URINE 0 /HPF (0-4)
[2018-09-08 18:32] LABS: ALBUMIN 3.3 g/dL (3.4-5.0); ALBUMIN/GLOBULIN RATIO 1.1 (1.0-1.7); TOTAL BILIRUBIN 0.3 mg/dL (0.2-1.0); TOTAL PROTEIN 6.3 g/dL (6.4-8.2)
[2018-09-08 18:55] LABS: % LYMPHS 4 % (24-48); % MONOS 4 % (0-10); % SEGS 92 % (35-66)
[2018-09-08 18:56] LABS: PLT ESTIMATE ADEQUATE (ADEQUATE); TOXIC GRANULATION SLIGHT
[2018-09-08] MEDS ORDERED: fentaNYL PF VIAL 100 MCG/2 ML VIAL IV PRN (20:45)
[2018-09-08] MEDS ORDERED: ONDANSETRON PF 4 MG/2 ML VIAL. IV PRN (20:45)
[2018-09-09] VITALS (7 sets, daily range): BP systolic 131–170; BP diastolic 63–92
[2018-09-09 02:59] LABS: BASO % 0 % (0-3); EOS % 0 % (0-3); HEMATOCRIT 28.1 % (39.0-53.0); HEMOGLOBIN 9.4 g/dL (13.0-17.5); LYMPH # 0.4 x10^3/uL (1.0-4.8); LYMPH % 8 % (24-48); MEAN CORPUSCULAR HEMOGLOBIN 31 pg (25-35); MEAN CORPUSCULAR HGB CONC 34 g/dL (31-37); MEAN CORPUSCULAR VOLUME 93 fL (79-100); MONO # 0.1 x10^3/uL (0.0-1.1); MONO % 1 % (0-9); NEUT % 91 % (31-73); PLATELET COUNT 140 x10^3/uL (140-400); RED BLOOD COUNT 3.04 x10^6/uL (4.30-5.70); RED CELL DISTRIBUTION WIDTH 14.5 % (11.5-14.5); WHITE BLOOD COUNT 5.5 x10^3/uL (4.0-11.0)
[2018-09-09 03:29] LABS: ALBUMIN/GLOBULIN RATIO 1.1 (1.0-1.7); CALCIUM 8.2 mg/dL (8.5-10.1); CREATININE 2.1 mg/dL (0.7-1.3); GFR 30.2; POTASSIUM 4.6 mmol/L (3.5-5.1); TOTAL BILIRUBIN 0.2 mg/dL (0.2-1.0); TOTAL PROTEIN 5.8 g/dL (6.4-8.2)
[2018-09-09] MEDS ORDERED: FLUT9.9S NS (05:29)
[2018-09-09] MEDS ORDERED: DOXA8TAB2 PO (05:29)
[2018-09-09] MEDS ORDERED: CALC-584 PO (05:29)
[2018-09-09] MEDS ORDERED: FURO40TA4 PO (05:29)
[2018-09-09] MEDS ORDERED: NITR0.4T SL (05:29)
[2018-09-09] MEDS ORDERED: ASCO100037 PO (05:33)
[2018-09-09] MEDS ORDERED: SENN8.6T99 PO (05:33)
[2018-09-09] MEDS ORDERED: FERR325T14 PO (05:33)
[2018-09-09] MEDS ORDERED: LORA10TA68 PO (05:33)
--- NOTE | 2018-09-09 06:03 | EKG ---
[facility] [address] [place] [address] Test Date: 2018-09-08 Test Time: 17:47:50 Pat Name: BASHIR ARROYO Department: Room: Gender: M Cna Instructor: : [id number] Requested By: ZHANG HEAD Order Number: [id number] Reading MD: Measurements Intervals [place] Rate: 64 P: 26 MD: 156 QRS: -12 QRSD: 98 T: 54 QT: 416 QTc: 433 Interpretive Statements SINUS RHYTHM LEFTWARD AXIS QRS(T) CONTOUR ABNORMALITY CONSISTENT WITH ANTERIOR INFARCT AGE UNDETERMINED ABNORMAL ECG RI6.01 No previous ECG available for comparison
[2018-09-09] MEDS ORDERED: ALBUTEROL SULFATE 2.5 MG/3 ML NEBU. NEB PRN (08:00)
[2018-09-09] MEDS: IPRATRPIUM/ALBUTEROL 0.5/2.5MG 3 ML NEBU. NEB SCH ×4 (08:01→20:04)
--- NOTE | 2018-09-09 09:41 | CONS ---
DATE OF CONSULTATION: 09/09/2018 PULMONARY CONSULTATION: ATTENDING PHYSICIAN: Dr. Lucía Lopez. REASON FOR CONSULTATION: Dyspnea. HISTORY OF PRESENT ILLNESS: The patient is an 83-year-old male with history of chronic obstructive airway disease. He is not on home oxygen. He also has history of asbestos exposure. He presented to the hospital complaining of shortness of breath for the past one week. The patient had no chest pain. The patient says he has a cough which has been nonproductive. No fever, no chills. No chest pains, no headaches, no nausea, vomiting, no diarrhea. No dysuria. No focal weakness. His chest x-ray did not reveal any acute infiltrates. There were areas of scarring and apical pleural thickening. He has been hospitalized for COPD exacerbation. PAST MEDICAL HISTORY: History of CHF, history of anemia, COPD, DVT, dyslipidemia, hypertension, OH. PAST SURGICAL HISTORY: Appendectomy and cardiac stents and abdominal surgery. ALLERGIES: SULFA, CLOPIDOGREL, VALSARTAN AND WARFARIN. REVIEW OF SYSTEMS: Twelve-point system obtained. Pertinent positives discussed in my history of present illness, otherwise noncontributory. All systems that were negative were reviewed as well. MEDICATIONS: Reviewed as listed in the MRAD. SOCIAL HISTORY: Smoked for about 25 years before quitting long time ago. FAMILY HISTORY: Noncontributory to lungs. PHYSICAL EXAMINATION: VITAL SIGNS: Reviewed. Blood pressure on the high side, afebrile, pulse ox 98% on room air. NECK: Supple. LUNGS: With occasional rhonchi and wheezes. CARDIOVASCULAR: Regular rate and rhythm. ABDOMEN: Soft, obese. EXTREMITIES: With no pitting edema. LABORATORY DATA: Reviewed. White cell count 5.5, hemoglobin 9.4 and platelets of 140. BUN and creatinine 34 and 2.1. ProBNP is 4426. Albumin 3.3. IMPRESSION: 1. Dyspnea secondary to acute exacerbation of chronic obstructive pulmonary disease. 2. Acute bronchitis, could be viral. No definite consolidation seen on the chest x-ray. 3. Underlying obesity with a BMI of 31. RECOMMENDATIONS: 1. Continue with present DuoNebs. 2. Low dose steroids. 3. Add Lovenox for DVT prophylaxis. 4. P.r.n. oxygen. 5. Anticipate hospitalization for another 24 hours. Discussed with RN. WESTON VÁSQUEZ MD DR: Greer JOB#: [id number] / [id number]
[2018-09-09] MEDS ORDERED: DEXTROSE 50% 25 GM / 50ML DISP.SYRIN. IV PRN (09:45)
[2018-09-09] MEDS ORDERED: ASPIRIN CHEWABLE 81 MG TABLET. PO SCH (09:45)
[2018-09-09] MEDS ORDERED: NITROGLYCERIN SUBLINGUAL 0.4 MG BOTTLE OF 25. SL PRN (09:45)
--- NOTE | 2018-09-09 10:31 | PDOC ---
Provider Note Provider Note Patient seen. History and Physical dictated. See dictation# [id number] MARCELLUS FIERRO MD September 09, 2018 10:31
--- NOTE | 2018-09-09 10:32 | PDOC2 ---
CONSULT Date of Consult Date of Consult DATE: 09/09/18 TIME: 10:27 Reason for Consult Reason for Consult: RENAL FAILURE Referring Physician Referring Physician: SRI Identification/Chief Complaint Chief Complaint SOB Source Source: Chart review, Patient History of Present Illness Reason for Visit: THIS IS AN 83 YR OLD WITH A HX OF COPD. HE IS ADMITTED WITH SOB AND BRONCHITIS. NOTED TO HAVE A CR OF 2.1. OLD RECORDS INDICATE A CR IN THE RANGE OF 1.6-2.2 OVER THE LAST SEVERAL YEARS AND HIS CKD IS DUE TO HTN. NO NEPHROTOXINS NOTED. NO HX OF ANY KIDNEY OR BLADDER SURGERIES OR HEMATURIA OR DYSURIA NOTED. HE HAS SOME AGE RELATED FREQUENCY AND NOCTURIA BUT DENIED ANY PROBLEMS WITH EMPTYING HIS BLADDER. HIS UA INDICATED A BLAND SEDIMENT Past Medical History Cardiovascular: AFIB, CAD, CHF, HTN, VT, Hyperlipidemia Pulmonary: Bronchitis, COPD GI: GERD, Other Heme/Onc: Anemia NOS, B12 deficiency, Other Hepatobiliary: Other Psych: Anxiety, Depression Musculoskeletal: low back pain, Other Renal/: Chronic renal insuff Past Surgical History Past Surgical History: Appendectomy, Other Family History Family History: Coronary Artery Disease Social History ALCOHOL: none Drugs: None Lives: with Family Current Problem List Problem List Problems Medical Problems: (1) COPD with acute bronchitis Status: Acute Current Medications Current Medications Current Medications Albuterol/ Ipratropium (Duoneb) 3 ml 1X ONCE NEB Last administered on 09/08/18at 17:48; Start 09/08/18 at 17:30; Stop 09/08/18 at 17:31; Status DC Methylprednisolone Sodium Succinate (SOLU-Medrol 125MG VIAL) 125 mg 1X ONCE IV Last administered on 09/08/18at 18:20; Start 09/08/18 at 17:30; Stop 09/08/18 at 17:31; Status DC Ondansetron HCl (Zofran) 4 mg PRN Q8HRS PRN IV NAUSEA/VOMITING; Start 09/08/18 at 20:45; Stop 09/09/18 at 20:44 Fentanyl Citrate (Fentanyl 2ml Vial) 50 mcg PRN Q1HR PRN IV PAIN; Start 09/08/18 at 20:45; Stop 09/09/18 at 20:44 Albuterol/ Ipratropium (Duoneb) 3 ml RTQID NEB Last administered on 09/09/18at 08:01; Start 09/09/18 at 08:00 Albuterol Sulfate (Ventolin Neb Soln) 2.5 mg PRN Q4HRS PRN NEB SHORTNESS OF BR EATH; Start 09/09/18 at 08:00 Methylprednisolone Sodium Succinate (SOLU-Medrol 40MG VIAL) 40 mg Q8HRS IV ; Start 09/09/18 at 10:00 Enoxaparin Sodium (Lovenox 30mg Syringe) 30 mg DAILY SQ ; Start 09/09/18 at 16:00 Acetaminophen (Tylenol) 650 mg PRN Q6HRS PRN PO MILD PAIN 1-3; Start 09/09/18 at 09:45 Aspirin (Children'S Aspirin) 325 mg DAILY PO ; Start 09/09/18 at 09:45 Carvedilol (Coreg) 3.125 mg BIDWMEALS PO ; Start 09/09/18 at 12:00 Cyanocobalamin (Vitamin B-12) 1,000 mcg DAILY PO ; Start 09/09/18 at 11:00 Diclofenac Sodium (Voltaren) 1 roz BID TP ; Start 09/09/18 at 11:00 Ferrous Sulfate (Feosol) 325 mg DAILY08 PO ; Start 09/09/18 at 12:00 Fluticasone Propionate (Flonase) 2 spray DAILY NS ; Start 09/09/18 at 10:00 Furosemide (Lasix) 40 mg DAILY PO ; Start 09/09/18 at 09:45 Mirtazapine (Remeron) 7.5 mg HS PO ; Start 09/09/18 at 21:00 Nitroglycerin (Nitrostat) 0.4 mg PRN Q5MIN PRN SL CHEST PAIN; Start 09/09/18 at 09:45 Acyclovir (Zovirax) 400 mg [id number] PO ; Start 09/09/18 at 14:00 Non-Formulary Medication (Albuterol Sulfate (Albuterol Sulfate Conc Neb Soln)) 2.5 mg [id number] IH ; Start 09/09/18 at 13:00; Status UNV Ascorbic Acid (Vitamin C) 1,000 mg DAILY PO ; Start 09/09/18 at 11:00 Non-Formulary Medication (Budesonide/ Formoterol Fumarate (Symbicort 160-4.5 Mcg Inhaler)) 2 inhaler BID IH ; Start 09/09/18 at 21:00; Status UNV Non-Formulary Medication (Calcium Carbonate/Vitamin D3 (Calcium 500-Vit D3 600 Tablet)) 1 each DAILY PO ; Start 09/10/18 at 09:00; Status UNV Non-Formulary Medication (Doxazosin Mesylate (Cardura)) 8 mg DAILY PO ; Start 09/09/18 at 09:45; Status UNV Non-Formulary Medication (Fluticasone Propionate (Flonase Allergy Relief)) 2 sprays DAILY NS ; Start 09/10/18 at 09:00; Status UNV Hydralazine HCl (Apresoline) 25 mg BID PO ; Start 09/09/18 at 11:00 Non-Formulary Medication (Loratadine (Claritin)) 10 mg DAILY PO ; Start 09/09/18 at 09:45; Status UNV Montelukast Sodium (Singulair) 10 mg QHS PO ; Start 09/09/18 at 21:00 Non-Formulary Medication (Multivits-Min/ Fa/Lycopene/Lut (Centrum Silver Tablet)) 1 each DAILY PO ; Start 09/10/18 at 09:00; Status UNV Non-Formulary Medication (Omeprazole ) 40 mg DAILY07 PO ; Start 09/10/18 at 07:00; Status UNV Non-Formulary Medication (Sennosides (Senokot)) 8.6 mg DAILY PO ; Start 09/10/18 at 09:00; Status UNV Non-Formulary Medication (Simvastatin ) 20 mg HS PO ; Start 09/09/18 at 21:00; Status UNV Insulin Human Lispro (HumaLOG) 0-6 UNITS TIDWMEALS SQ ; Start 09/09/18 at 12:00 Dextrose (Dextrose 50%-Water Syringe) 12.5 gm PRN Q15MIN PRN IV SEE COMMENTS; Start 09/09/18 at 09:45 Active Scripts Active Tylenol (Acetaminophen) 325 Mg Tablet 650 Mg PO PRN Q6HRS PRN 30 Days Voltaren (Diclofenac Sodium) 100 Gm Gel..gram. 1 Roz TP BID 30 Days Prednisone (Prednisone) 10 Mg Tablet 10 Mg PO DAILY Vitamin B-12 (Cyanocobalamin (Vitamin B-12)) 1,000 Mcg Tablet 1,000 Mcg PO DAILY Reported C-1000 (Ascorbic Acid) 1,000 Mg Tablet.er 1,000 Mg PO DAILY Senokot (Sennosides) 8.6 Mg Tablet 8.6 Mg PO DAILY Ferrous Sulfate 325 Mg Tablet 325 Mg PO DAILY Claritin (Loratadine) 10 Mg Tablet 10 Mg PO DAILY Cardura (Doxazosin Mesylate) 8 Mg Tablet 8 Mg PO DAILY Furosemide 40 Mg Tablet 40 Mg PO DAILY Nitrostat (Nitroglycerin) 0.4 Mg Tab.subl 0.4 Mg SL PRN Q5MIN PRN Flonase Allergy Relief (Fluticasone Propionate) 9.9 Ml [place].susp 2 Sprays NS DAILY Calcium 500-Vit D3 600 Tablet (Calcium Carbonate/Vitamin D3) 1 Each Tablet 1 Each PO DAILY Fluticasone Propionate Nasal [place] (Fluticasone Propionate) 16 Gm [place].susp 2 [place] NS DAILY Singulair Tablet (Montelukast Sodium) 10 Mg Tablet 10 Mg PO HS Centrum Silver Tablet (Multivits-Min/Fa/Lycopene/Lut) 1 Each Tablet 1 Each PO DAILY Carvedilol (Carvedilol) 3.125 Mg Tablet 1 Tab PO BID Hydralazine Hcl 25 Mg Tablet 1 Tab PO BID Aspirin 81 Mg Tab.chew 325 Mg PO DAILY Omeprazole 40 Mg Capsule.dr 40 Mg PO DAILY07 Mirtazapine 7.5 Mg Tablet 7.5 Mg PO HS Simvastatin 20 Mg Tablet 20 Mg PO HS Symbicort 160-4.5 Mcg Inhaler (Budesonide/Formoterol Fumarate) 10.2 Gm Hfa.aer.ad 2 Inhaler IH BID Albuterol Sulfate Conc Neb Soln (Albuterol Sulfate) 2.5 Mg/0.5 Ml Vial.neb 2.5 Mg IH [id number] Acyclovir 400 Mg Tablet 400 Mg PO TID PRN Allergies Allergies: Coded Allergies: Sulfa (Sulfonamide Antibiotics) (Verified Allergy, Intermediate, 09/08/18) clopidogrel (Verified Allergy, Intermediate, 09/08/18) valsartan (Verified Allergy, Intermediate, 09/08/18) warfarin (Verified Allergy, Intermediate, 09/08/18) ROS General: YES: Fatigue PSYCHOLOGICAL ROS: YES: Anxiety Eyes: Yes Decreased vision ALLERGY AND IMMUNOLOGY: YES: Seasonal Allergies Respiratory: YES: Cough, Shortness of breath Gastrointestinal: Yes Constipation Genitourinary: YES Frequency, YES Other (NOCTURIA) Musculoskeletal: Yes Joint Stiffness, Yes Muscular Weakness Skin: Yes Dry Skin Physical Exam General: Alert, Oriented X3, Cooperative, No acute distress HEENT: Atraumatic, PERRLA Lungs: Clear to auscultation Heart: Regular rate, Normal S1, Normal S2 Abdomen: Normal bowel sounds, Soft Extremities: No clubbing Skin: No breakdown Neuro: Normal speech Psych/Mental Status: Mental status NL, Mood NL MUSCULOSKELETAL: No joint tenderness, No deformity, No swelling Vitals VITALS Vital Signs Date Time Temp Pulse Resp B/P (MAP) Pulse Ox O2 Delivery O2 Flow Rate FiO2 09/09/18 08:15 Room Air 09/09/18 08:01 98 09/09/18 07:04 98.1 50 17 159/74 (102) 98.1 Labs Labs Laboratory Tests Test 09/08/18 17:55 09/08/18 18:15 09/09/18 02:35 White Blood Count 6.1 x10^3/uL (4.0-11.0) 5.5 x10^3/uL (4.0-11.0) Red Blood Count 3.22 x10^6/uL (4.30-5.70) 3.04 x10^6/uL (4.30-5.70) Hemoglobin 9.9 g/dL (13.0-17.5) 9.4 g/dL (13.0-17.5) Hematocrit 29.9 % (39.0-53.0) 28.1 % (39.0-53.0) Mean Corpuscular Volume 93 fL (79-100) 93 fL (79-100) Mean Corpuscular Hemoglobin 31 pg (25-35) 31 pg (25-35) Mean Corpuscular Hemoglobin Concent 33 g/dL (31-37) 34 g/dL (31-37) Red Cell Distribution Width 14.5 % (11.5-14.5) 14.5 % (11.5-14.5) Platelet Count 147 x10^3/uL (140-400) 140 x10^3/uL (140-400) Neutrophils (%) (Auto) 87 % (31-73) 91 % (31-73) Lymphocytes (%) (Auto) 8 % (24-48) 8 % (24-48) Monocytes (%) (Auto) 5 % (0-9) 1 % (0-9) Eosinophils (%) (Auto) 0 % (0-3) 0 % (0-3) Basophils (%) (Auto) 0 % (0-3) 0 % (0-3) Neutrophils # (Auto) 5.3 x10^3uL (1.8-7.7) 5.0 x10^3uL (1.8-7.7) Lymphocytes # (Auto) 0.5 x10^3/uL (1.0-4.8) 0.4 x10^3/uL (1.0-4.8) Monocytes # (Auto) 0.3 x10^3/uL (0.0-1.1) 0.1 x10^3/uL (0.0-1.1) Eosinophils # (Auto) 0.0 x10^3/uL (0.0-0.7) 0.0 x10^3/uL (0.0-0.7) Basophils # (Auto) 0.0 x10^3/uL (0.0-0.2) 0.0 x10^3/uL (0.0-0.2) Segmented Neutrophils % 92 % (35-66) Lymphocytes % 4 % (24-48) Monocytes % 4 % (0-10) Toxic Granulation Slight Platelet Estimate Adequate (ADEQUATE) Sodium Level 144 mmol/L (136-145) 142 mmol/L (136-145) Potassium Level 4.3 mmol/L (3.5-5.1) 4.6 mmol/L (3.5-5.1) Chloride Level 109 mmol/L (98-107) 107 mmol/L (98-107) Carbon Dioxide Level 25 mmol/L (21-32) 23 mmol/L (21-32) Anion Gap 10 (6-14) 12 (6-14) Blood Urea Nitrogen 34 mg/dL (8-26) 34 mg/dL (8-26) Creatinine 2.0 mg/dL (0.7-1.3) 2.1 mg/dL (0.7-1.3) Estimated GFR (Cockcroft-Gault) 31.9 30.2 BUN/Creatinine Ratio 17 (6-20) 16 (6-20) Glucose Level 167 mg/dL (70-99) 246 mg/dL (70-99) Calcium Level 8.3 mg/dL (8.5-10.1) 8.2 mg/dL (8.5-10.1) Total Bilirubin 0.3 mg/dL (0.2-1.0) 0.2 mg/dL (0.2-1.0) Aspartate Amino Transf (AST/SGOT) 19 U/L (15-37) 18 U/L (15-37) Alanine Aminotransferase (ALT/SGPT) 24 U/L (16-63) 23 U/L (16-63) Alkaline Phosphatase 52 U/L (46-116) 51 U/L (46-116) Troponin I Quantitative < 0.017 ng/mL (0.000-0.055) 0.024 ng/mL (0.000-0.055) BN-Snn-E-Type Natriuretic Peptide 4426 pg/mL (0-449) Total Protein 6.3 g/dL (6.4-8.2) 5.8 g/dL (6.4-8.2) Albumin 3.3 g/dL (3.4-5.0) 3.0 g/dL (3.4-5.0) Albumin/Globulin Ratio 1.1 (1.0-1.7) 1.1 (1.0-1.7) Urine Collection Type Unknown Urine Color Yellow Urine Clarity Clear Urine pH 5.0 Urine Specific [place] 1.020 Urine Protein Negative mg/dL (NEG-TRACE) Urine Glucose (UA) Negative mg/dL (NEG) Urine Ketones (Stick) Negative mg/dL (NEG) Urine Blood Negative (NEG) Urine Nitrite Negative (NEG) Urine Bilirubin Negative (NEG) Urine Urobilinogen Dipstick 0.2 mg/dL (0.2 mg/dL) Urine Leukocyte Esterase Negative (NEG) Urine RBC Occ /HPF (0-2) Urine WBC 0 /HPF (0-4) Urine Bacteria 0 /HPF (0-FEW) Urine Hyaline Casts Few /HPF Urine Mucus Mod /LPF Laboratory Tests Test 09/08/18 17:55 09/08/18 18:15 09/09/18 02:35 White Blood Count 6.1 x10^3/uL (4.0-11.0) 5.5 x10^3/uL (4.0-11.0) Red Blood Count 3.22 x10^6/uL (4.30-5.70) 3.04 x10^6/uL (4.30-5.70) Hemoglobin 9.9 g/dL (13.0-17.5) 9.4 g/dL (13.0-17.5) Hematocrit 29.9 % (39.0-53.0) 28.1 % (39.0-53.0) Mean Corpuscular Volume 93 fL (79-100) 93 fL (79-100) Mean Corpuscular Hemoglobin 31 pg (25-35) 31 pg (25-35) Mean Corpuscular Hemoglobin Concent 33 g/dL (31-37) 34 g/dL (31-37) Red Cell Distribution Width 14.5 % (11.5-14.5) 14.5 % (11.5-14.5) Platelet Count 147 x10^3/uL (140-400) 140 x10^3/uL (140-400) Neutrophils (%) (Auto) 87 % (31-73) 91 % (31-73) Lymphocytes (%) (Auto) 8 % (24-48) 8 % (24-48) Monocytes (%) (Auto) 5 % (0-9) 1 % (0-9) Eosinophils (%) (Auto) 0 % (0-3) 0 % (0-3) Basophils (%) (Auto) 0 % (0-3) 0 % (0-3) Neutrophils # (Auto) 5.3 x10^3uL (1.8-7.7) 5.0 x10^3uL (1.8-7.7) Lymphocytes # (Auto) 0.5 x10^3/uL (1.0-4.8) 0.4 x10^3/uL (1.0-4.8) Monocytes # (Auto) 0.3 x10^3/uL (0.0-1.1) 0.1 x10^3/uL (0.0-1.1) Eosinophils # (Auto) 0.0 x10^3/uL (0.0-0.7) 0.0 x10^3/uL (0.0-0.7) Basophils # (Auto) 0.0 x10^3/uL (0.0-0.2) 0.0 x10^3/uL (0.0-0.2) Segmented Neutrophils % 92 % (35-66) Lymphocytes % 4 % (24-48) Monocytes % 4 % (0-10) Toxic Granulation Slight Platelet Estimate Adequate (ADEQUATE) Sodium Level 144 mmol/L (136-145) 142 mmol/L (136-145) Potassium Level 4.3 mmol/L (3.5-5.1) 4.6 mmol/L (3.5-5.1) Chloride Level 109 mmol/L (98-107) 107 mmol/L (98-107) Carbon Dioxide Level 25 mmol/L (21-32) 23 mmol/L (21-32) Anion Gap 10 (6-14) 12 (6-14) Blood Urea Nitrogen 34 mg/dL (8-26) 34 mg/dL (8-26) Creatinine 2.0 mg/dL (0.7-1.3) 2.1 mg/dL (0.7-1.3) Estimated GFR (Cockcroft-Gault) 31.9 30.2 BUN/Creatinine Ratio 17 (6-20) 16 (6-20) Glucose Level 167 mg/dL (70-99) 246 mg/dL (70-99) Calcium Level 8.3 mg/dL (8.5-10.1) 8.2 mg/dL (8.5-10.1) Total Bilirubin 0.3 mg/dL (0.2-1.0) 0.2 mg/dL (0.2-1.0) Aspartate Amino Transf (AST/SGOT) 19 U/L (15-37) 18 U/L (15-37) Alanine Aminotransferase (ALT/SGPT) 24 U/L (16-63) 23 U/L (16-63) Alkaline Phosphatase 52 U/L (46-116) 51 U/L (46-116) Troponin I Quantitative < 0.017 ng/mL (0.000-0.055) 0.024 ng/mL (0.000-0.055) HM-Glr-B-Type Natriuretic Peptide 4426 pg/mL (0-449) Total Protein 6.3 g/dL (6.4-8.2) 5.8 g/dL (6.4-8.2) Albumin 3.3 g/dL (3.4-5.0) 3.0 g/dL (3.4-5.0) Albumin/Globulin Ratio 1.1 (1.0-1.7) 1.1 (1.0-1.7) Urine Collection Type Unknown Urine Color Yellow Urine Clarity Clear Urine pH 5.0 Urine Specific [place] 1.020 Urine Protein Negative mg/dL (NEG-TRACE) Urine Glucose (UA) Negative mg/dL (NEG) Urine Ketones (Stick) Negative mg/dL (NEG) Urine Blood Negative (NEG) Urine Nitrite Negative (NEG) Urine Bilirubin Negative (NEG) Urine Urobilinogen Dipstick 0.2 mg/dL (0.2 mg/dL) Urine Leukocyte Esterase Negative (NEG) Urine RBC Occ /HPF (0-2) Urine WBC 0 /HPF (0-4) Urine Bacteria 0 /HPF (0-FEW) Urine Hyaline Casts Few /HPF Urine Mucus Mod /LPF Assessment/Plan Assessment/Plan IMP CKD STAGE 3B WITH CR OF 2.1 NOW AND AT BASELINE 1.6-2.2-UA SHOWED A BLAND SEDIMENT BRONCHITIS WITH ACUTE EXACERBATION OF COPD PLAN VERY STABLE FROM A RENAL STANDPOINT WITH STABLE ELECTROLYTES AND ACID BASE BALANCE CONT TREATMENT FOR PULMONARY ISSUES CONT WITH DAILY LOOP DIURETICS D/W ATTENDING WILL FOLLOW MARA BORGES MD September 09, 2018 10:32
--- NOTE | 2018-09-09 10:54 | PDOC ---
Infectious Disease Note Vital Signs: Vital Signs Vital Signs Date Time Temp Pulse Resp B/P (MAP) Pulse Ox O2 Delivery O2 Flow Rate FiO2 09/09/18 08:15 Room Air 09/09/18 08:01 98 09/09/18 07:04 98.1 50 17 159/74 (102) 98.1 Medications: Inpatient Meds: Current Medications Medications (Trade) Dose Ordered Sig/Juhi Start Time Stop Time Status Last Admin Dose Admin Acetaminophen (Tylenol) 650 mg PRN Q6HRS PRN 09/09/18 09:45 Acyclovir (Zovirax) 400 mg [id number] 09/09/18 14:00 Albuterol Sulfate (Ventolin Neb Soln) 2.5 mg PRN Q4HRS PRN 09/09/18 08:00 Albuterol/ Ipratropium (Duoneb) 3 ml RTQID 09/09/18 08:00 09/09/18 08:01 3 ML Ascorbic Acid (Vitamin C) 1,000 mg DAILY 09/09/18 11:00 Aspirin (Children'S Aspirin) 324 mg DAILY 09/10/18 09:00 Calcium/Vitamin D (Oscal D 500mg/ 200uts) 1 tab DAILY 09/09/18 11:00 Carvedilol (Coreg) 3.125 mg BIDWMEALS 09/09/18 12:00 Cetirizine HCl (ZyrTEC) 10 mg DAILY 09/09/18 11:00 Cyanocobalamin (Vitamin B-12) 1,000 mcg DAILY 09/09/18 11:00 Dextrose (Dextrose 50%-Water Syringe) 12.5 gm PRN Q15MIN PRN 09/09/18 09:45 Diclofenac Sodium (Voltaren) 1 naif BID 09/09/18 11:00 Doxazosin Mesylate (Cardura) 8 mg DAILY 09/09/18 11:00 Enoxaparin Sodium (Lovenox 30mg Syringe) 30 mg DAILY 09/09/18 16:00 Fentanyl Citrate (Fentanyl 2ml Vial) 50 mcg PRN Q1HR PRN 09/08/18 20:45 09/09/18 20:44 Ferrous Sulfate (Feosol) 325 mg DAILY08 09/09/18 12:00 Fluticasone Propionate (Flonase) 2 spray DAILY 09/09/18 10:00 Furosemide (Lasix) 40 mg DAILY 09/09/18 09:45 Heparin Sodium (Porcine) (Heparin Sodium) 5,000 unit Q12HR 09/09/18 11:00 Hydralazine HCl (Apresoline) 25 mg BID 09/09/18 11:00 Insulin Human Lispro (HumaLOG) 0-6 UNITS TIDWMEALS 09/09/18 12:00 Methylprednisolone Sodium Succinate (SOLU-Medrol 40MG VIAL) 40 mg Q8HRS 09/09/18 10:00 Methylprednisolone Sodium Succinate (SOLU-Medrol 125MG VIAL) 125 mg 1X ONCE 09/08/18 17:30 09/08/18 17:31 DC 09/08/18 18:20 125 MG Mirtazapine (Remeron) 7.5 mg HS 09/09/18 21:00 Montelukast Sodium (Singulair) 10 mg QHS 09/09/18 21:00 Multivitamins (Thera M Plus) 1 tab DAILY 09/09/18 11:00 Nitroglycerin (Nitrostat) 0.4 mg PRN Q5MIN PRN 09/09/18 09:45 Non-Formulary Medication (Albuterol Sulfate (Albuterol Sulfate Conc Neb Soln)) 2.5 mg [id number] 09/09/18 13:00 UNV Non-Formulary Medication (Budesonide/ Formoterol Fumarate (Symbicort 160-4.5 Mcg Inhaler)) 2 inhaler BID 09/09/18 21:00 UNV Non-Formulary Medication (Fluticasone Propionate (Flonase Allergy Relief)) 2 sprays DAILY 09/10/18 09:00 UNV Non-Formulary Medication (Omeprazole ) 40 mg DAILY07 09/10/18 07:00 UNV Ondansetron HCl (Zofran) 4 mg PRN Q8HRS PRN 09/08/18 20:45 09/09/18 20:44 Sennosides (Senna) 8.6 mg DAILY 09/09/18 10:45 Simvastatin (Zocor) 20 mg HS 09/09/18 21:00 Labs: Lab Laboratory Tests Test 09/08/18 17:55 09/08/18 18:15 09/09/18 02:35 White Blood Count 6.1 x10^3/uL (4.0-11.0) 5.5 x10^3/uL (4.0-11.0) Red Blood Count 3.22 x10^6/uL (4.30-5.70) 3.04 x10^6/uL (4.30-5.70) Hemoglobin 9.9 g/dL (13.0-17.5) 9.4 g/dL (13.0-17.5) Hematocrit 29.9 % (39.0-53.0) 28.1 % (39.0-53.0) Mean Corpuscular Volume 93 fL (79-100) 93 fL (79-100) Mean Corpuscular Hemoglobin 31 pg (25-35) 31 pg (25-35) Mean Corpuscular Hemoglobin Concent 33 g/dL (31-37) 34 g/dL (31-37) Red Cell Distribution Width 14.5 % (11.5-14.5) 14.5 % (11.5-14.5) Platelet Count 147 x10^3/uL (140-400) 140 x10^3/uL (140-400) Neutrophils (%) (Auto) 87 % (31-73) 91 % (31-73) Lymphocytes (%) (Auto) 8 % (24-48) 8 % (24-48) Monocytes (%) (Auto) 5 % (0-9) 1 % (0-9) Eosinophils (%) (Auto) 0 % (0-3) 0 % (0-3) Basophils (%) (Auto) 0 % (0-3) 0 % (0-3) Neutrophils # (Auto) 5.3 x10^3uL (1.8-7.7) 5.0 x10^3uL (1.8-7.7) Lymphocytes # (Auto) 0.5 x10^3/uL (1.0-4.8) 0.4 x10^3/uL (1.0-4.8) Monocytes # (Auto) 0.3 x10^3/uL (0.0-1.1) 0.1 x10^3/uL (0.0-1.1) Eosinophils # (Auto) 0.0 x10^3/uL (0.0-0.7) 0.0 x10^3/uL (0.0-0.7) Basophils # (Auto) 0.0 x10^3/uL (0.0-0.2) 0.0 x10^3/uL (0.0-0.2) Segmented Neutrophils % 92 % (35-66) Lymphocytes % 4 % (24-48) Monocytes % 4 % (0-10) Toxic Granulation Slight Platelet Estimate Adequate (ADEQUATE) Sodium Level 144 mmol/L (136-145) 142 mmol/L (136-145) Potassium Level 4.3 mmol/L (3.5-5.1) 4.6 mmol/L (3.5-5.1) Chloride Level 109 mmol/L (98-107) 107 mmol/L (98-107) Carbon Dioxide Level 25 mmol/L (21-32) 23 mmol/L (21-32) Anion Gap 10 (6-14) 12 (6-14) Blood Urea Nitrogen 34 mg/dL (8-26) 34 mg/dL (8-26) Creatinine 2.0 mg/dL (0.7-1.3) 2.1 mg/dL (0.7-1.3) Estimated GFR (Cockcroft-Gault) 31.9 30.2 BUN/Creatinine Ratio 17 (6-20) 16 (6-20) Glucose Level 167 mg/dL (70-99) 246 mg/dL (70-99) Calcium Level 8.3 mg/dL (8.5-10.1) 8.2 mg/dL (8.5-10.1) Total Bilirubin 0.3 mg/dL (0.2-1.0) 0.2 mg/dL (0.2-1.0) Aspartate Amino Transf (AST/SGOT) 19 U/L (15-37) 18 U/L (15-37) Alanine Aminotransferase (ALT/SGPT) 24 U/L (16-63) 23 U/L (16-63) Alkaline Phosphatase 52 U/L (46-116) 51 U/L (46-116) Troponin I Quantitative < 0.017 ng/mL (0.000-0.055) 0.024 ng/mL (0.000-0.055) QL-Xww-Y-Type Natriuretic Peptide 4426 pg/mL (0-449) Total Protein 6.3 g/dL (6.4-8.2) 5.8 g/dL (6.4-8.2) Albumin 3.3 g/dL (3.4-5.0) 3.0 g/dL (3.4-5.0) Albumin/Globulin Ratio 1.1 (1.0-1.7) 1.1 (1.0-1.7) Urine Collection Type Unknown Urine Color Yellow Urine Clarity Clear Urine pH 5.0 Urine Specific Addison 1.020 Urine Protein Negative mg/dL (NEG-TRACE) Urine Glucose (UA) Negative mg/dL (NEG) Urine Ketones (Stick) Negative mg/dL (NEG) Urine Blood Negative (NEG) Urine Nitrite Negative (NEG) Urine Bilirubin Negative (NEG) Urine Urobilinogen Dipstick 0.2 mg/dL (0.2 mg/dL) Urine Leukocyte Esterase Negative (NEG) Urine RBC Occ /HPF (0-2) Urine WBC 0 /HPF (0-4) Urine Bacteria 0 /HPF (0-FEW) Urine Hyaline Casts Few /HPF Urine Mucus Mod /LPF Objective: Assessment: Pt seen and examined Consult dictated COPD exacerbation acute bronchitis CAD CARMELINA on CKD Plan: Plan of Care augmentin for 5 days cont supportive care thank you [id number] AMBER CARRASQUILLO MD September 09, 2018 10:54
[2018-09-09] MEDS: FLUTICASONE 50MCG/NASAL SPRAY 16GM BOTTLE. NS SCH (10:57)
[2018-09-09] MEDS: methylPREDNISolone SOD SUCC PF 40 MG/ML VIAL. IV SCH ×3 (10:57→21:49)
[2018-09-09] MEDS: FUROSEMIDE 40 MG TABLET. PO SCH (10:57)
[2018-09-09] MEDS: SENNOSIDES 8.6 MG TABLET PO SCH (10:58)
[2018-09-09] MEDS: hydrALAZINE 25 MG TABLET PO SCH ×2 (10:58→20:12)
[2018-09-09] MEDS: ASCORBIC ACID 500 MG TABLET PO SCH (10:59)
[2018-09-09] MEDS: DOXAZOSIN MESYLATE 4 MG TABLET. PO SCH (10:59)
[2018-09-09] MEDS: CYANOCOBALAMIN (VITAMIN B-12) 1,000 MCG TABLET. PO SCH (10:59)
[2018-09-09] MEDS: DICLOFENAC SODIUM 1% TOPICAL GEL 100GM TUBE. TP SCH ×2 (11:00→19:19)
[2018-09-09] MEDS ORDERED: HEPARIN for SUB-Q USE 5,000 UNIT/ML VIAL. SQ SCH (11:00)
--- NOTE | 2018-09-09 11:02 | HP ---
ADMIT DATE: 09/08/2018 HISTORY OF PRESENT ILLNESS: This 83-year-old male with a history of severe COPD, was treated in my office by our nurse practitioner with doxycycline and Cipro and oral prednisone with a tapering dose without any relief. The patient's condition continued to get worse, and when he came again to the office yesterday, he was extremely short of breath, and because of the failure of the outpatient treatment, the patient has been admitted for further evaluation and management. The patient was initially sent to the Emergency Room and a chest x-ray did not show any acute infiltrates. Because of the severe exacerbation of chronic obstructive pulmonary disease and recurrent bronchitis, the patient was admitted for further evaluation and management. REVIEW OF SYSTEMS: As noted in the history of present illness. PAST MEDICAL HISTORY: The patient is known to have degenerative joint disease involving multiple joints, allergic rhinitis, COPD, benign prostatic hypertrophy, benign essential hypertension, chronic kidney disease stage 3, creatinine has ranged from 1.6 to 2; anxiety, hyperlipidemia, coronary artery disease, had a stent placed in 2011, history of C. difficile colitis in 2012, history of old myocardial infarction, DVT in 2011, small-bowel obstruction in 2011, CAD, 2 stents placed at in 2011., carotid artery disease, GERD, hemorrhoids, hypertension, lumbar spinal stenosis of L4-L5, macular degeneration of left eye, dry; osteoarthritis, multiple sites; and hypotension. PAST SURGICAL HISTORY: Stent placed in 2011, two stents placed; L5-S1 decompression with microdiskectomy and right L4-L5 decompression, partial colectomy, appendectomy, tonsillectomy, and hemorrhoidectomy. ALLERGIES: THE PATIENT IS ALLERGIC TO CLARITHROMYCIN THAT CAUSES RASH, CLOPIDOGREL, CAUSES RASH; CODEINE, CYCLOBENZAPRINE CAUSES ITCHING; LISINOPRIL AND PRASUGREL CAUSES NAUSEA, MODERATE TO SEVERE; SULFA ANTIBIOTICS, TIZANIDINE, ITCHING, MILD TO MODERATE. FAMILY HISTORY: Father had coronary artery disease. Mother had coronary artery disease. SOCIAL HISTORY: The patient is an ex-cigarette smoker. No history of alcoholism or drug abuse. PHYSICAL EXAMINATION: VITAL SIGNS: Temperature is 98.1, pulse 54 per minute, blood pressure 170/65 mmHg. The patient has bradycardia. GENERAL: The patient is alert, oriented, in mild to moderate respiratory distress. EYES: Pupils reacting to light. Conjunctivae pale. Sclerae muddy. HEENT: Throat congested. NECK: Supple. JVP is normal. No thyromegaly. Trachea is midline. LUNGS: Bilateral wheezing. CARDIOVASCULAR: S1, S2 regular. ABDOMEN: Soft, nontender, no guarding, no rigidity. Bowel sounds present. EXTREMITIES: No edema. CENTRAL NERVOUS SYSTEM: Alert, oriented, anxious, has some cognitive deficits. LABORATORY FINDINGS: WBC count is 6.1 and hemoglobin 9.9. Sodium is 144, potassium 4.3, BUN 34, creatinine 2.1 today, glucose 167 and 246; and calcium 8.3. BNP is 4426. Troponin is less than 0.017. Albumin is 3.3 yesterday, 3 today. Total protein is 6.3. Chest x-ray, no acute changes. IMPRESSION: 1. Acute bronchitis, not responding to outpatient treatment. 2. Acute exacerbation of chronic obstructive pulmonary disease, not responding to outpatient treatment. 3. Diabetes mellitus type 2, not controlled. 4. 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 5. Coronary artery disease. 6. History of deep venous thrombosis. 7. History of Clostridium difficile colitis. 8. Benign prostatic hypertrophy. 9. Anxiety. PLAN: Continue IV steroids. We will consult Dr. Darrius Dye because of recent treatment with multiple antibiotics and history of Clostridium difficile colitis. He is responding to IV steroids. Consult Dr. Ribeiro for pulmonary evaluation and management and Dr. Bustamante for nephrology evaluation and management. For details, please review the orders. MARCELLUS FIERRO MD DR: TEMITOPE/lory JOB#: [id number] / [id number]
--- NOTE | 2018-09-09 11:03 | NUR ---
SW following pt for anticipated dc needs. Chart reviewed. Pt lives at home alone and no SW needs noted at this time.
[2018-09-09] MEDS: CETIRIZINE HCL 10 MG TABLET. PO SCH (11:05)
[2018-09-09] MEDS: PANTOPRAZOLE 40 MG TABLET.DR. PO SCH (11:05)
[2018-09-09] MEDS: MULTIVITAMIN with MINERAL TABLET. PO SCH (11:05)
[2018-09-09] MEDS: CALCIUM CARB/VIT D3 500/200 TABLET. PO SCH (11:05)
[2018-09-09] MEDS: CARVEDILOL 3.125 MG TABLET. PO SCH ×2 (12:00→17:20)
[2018-09-09] MEDS: INSULIN LISPRO 300 UNITS/3 ML INSULN.PEN. SQ SCH ×2 (12:00→17:00)
[2018-09-09] MEDS ORDERED: ALBUTEROL SULFATE 2.5 MG/3 ML NEBU. NEB SCH (12:00)
[2018-09-09] MEDS: FERROUS SULFATE 325 MG TABLET. PO SCH (12:00)
[2018-09-09] MEDS: AMOXICILLIN/K CLAV 500/125MG TABLET. PO SCH (12:03)
[2018-09-09] MEDS ORDERED: NON FORMULARY ITEM (Albuterol Sulfate (Albuterol Sulfate Conc Neb Soln) 2.5 MG) IH SCH (13:00)
[2018-09-09] MEDS: ACYCLOVIR 200 MG CAPSULE. PO SCH ×2 (14:57→20:06)
[2018-09-09] MEDS: ENOXAPARIN 30 MG/0.3 ML SYRINGE. SQ SCH (17:20)
[2018-09-09] MEDS: BUDESONIDE 0.5 MG/2 ML NEBU. NEB SCH (20:04)
[2018-09-09] MEDS: MIRTAZAPINE 7.5 MG TABLET. PO SCH (20:06)
[2018-09-09] MEDS: SIMVASTATIN 20 MG TABLET PO SCH (20:06)
[2018-09-09] MEDS: LACTOBACILLUS RHAMNOSUS GG 1 CAPSULE. PO SCH (20:07)
[2018-09-09] MEDS: MONTELUKAST SODIUM 10 MG TABLET. PO SCH (20:07)
[2018-09-09] MEDS ORDERED: [UNRECOGNIZED DRUG - OTHER] IH SCH (21:00)
[2018-09-09] MEDS ORDERED: FORMOTEROL FUMARATE IH SCH (21:00)
[2018-09-09] MEDS ORDERED: BUDESONIDE IH SCH (21:00)
--- NOTE | 2018-09-10 01:03 | CONS ---
DATE OF CONSULTATION: 09/09/2018 REFERRING PHYSICIAN: Dr. Lopez. REASON FOR CONSULTATION: Acute exacerbation of COPD. HISTORY OF PRESENT ILLNESS: An 83-year-old male with history of COPD, not on home oxygen, history of asbestos exposure, CHF, presented to the ER on 09/08/2018 with complaints of shortness of breath, which kept on worsening over the last week. The patient had dry cough. No fevers, chills, nausea, vomiting, diarrhea or abdominal pain. He felt like his COPD was acting up. He was treated with outpatient antibiotics, but continued to worsen, so presented to the ER. He remained afebrile. White count was normal. The patient was found to have renal insufficiency with creatinine of 2.0. BNP was 4426. The patient was started on nebulizer treatment. He remained afebrile. White count has been normal. Does not require any oxygen this morning. He states he feels much better with supportive care and slowly improving. Chest x-ray revealed no acute infiltrate. PAST MEDICAL HISTORY: CHF, COPD, DVT, dyslipidemia, hypertension, AR, anemia. PAST SURGICAL HISTORY: Appendectomy, abdominal surgery, cardiac stents. ALLERGIES: SULFA, CLOPIDOGREL, VALSARTAN, AND WARFARIN. REVIEW OF SYSTEMS: Negative except for above in HPI. CURRENT MEDICATIONS: Antibiotics: None. Other medications reviewed in medication list. SOCIAL HISTORY: Smoked for about 25 years before quitting. FAMILY HISTORY: As per HPI. PHYSICAL EXAMINATION: VITAL SIGNS: Temperature 98.1, pulse 50, respiratory rate 17, blood pressure 159/74, oxygen saturation 98% on room air. GENERAL: Alert, awake, pleasant male, lying in bed comfortably, in no acute distress. HEENT: Normocephalic, atraumatic, anicteric. No thrush. Oral mucosa moist. NECK: Supple. LUNGS: Decreased breath sounds at the bases. Few expiratory rhonchi. HEART: S1, S2, no murmurs. ABDOMEN: Soft, obese. Bowel sounds present. EXTREMITIES: No edema. CENTRAL NERVOUS SYSTEM: Alert and oriented x 3. Grossly nonfocal. PSYCHIATRIC: Cooperative, appropriate mood and affect. DERMATOLOGIC: Warm, dry. No generalized rash. LABORATORY DATA: WBC 5.5, hemoglobin 9.4, hematocrit 28.1, platelets 140, neutrophils 91%. Sodium 142, potassium 4.6, chloride 107, bicarbonate 23, BUN 34, creatinine 2.1, glucose 246, calcium 8.2. BNP was 4426, troponin normal. Albumin 3.0. UA showed negative leukocyte esterase. IMAGING: Chest x-ray showed no acute abnormality, areas of scarring and apical pleural thickening are seen involving both the upper lobes. IMPRESSION: 1. Chronic obstructive pulmonary disease exacerbation. 2. Acute bronchitis, likely viral. 3. Acute kidney injury with underlying chronic kidney disease. 4. Coronary artery disease. 5. History of deep venous thrombosis with IVC filter placement. 6. History of atrial fibrillation. 7. Degenerative joint disease. 8. Anemia of chronic disease. RECOMMENDATIONS: 1. Continue current supportive care with nebulizer treatment and steroids. 2. We will start the patient on empiric Augmentin for a couple of days. 3. Follow up labs and cultures. 4. Continue supportive care. Thank you, Dr. Lopez, for consulting Infectious Disease to evaluate this patient. We will follow along with you. AMBER CARRASQUILLO MD DR: CORY/lory JOB#: [id number] / [id number]
[2018-09-10 03:00] VITALS: BP 140/70
[2018-09-10 06:00] LABS: BASO % 0 % (0-3); EOS % 0 % (0-3); HEMOGLOBIN 9.7 g/dL (13.0-17.5); LYMPH # 0.6 x10^3/uL (1.0-4.8); LYMPH % 7 % (24-48); MEAN CORPUSCULAR HEMOGLOBIN 31 pg (25-35); MEAN CORPUSCULAR HGB CONC 34 g/dL (31-37); MEAN CORPUSCULAR VOLUME 93 fL (79-100); MONO # 0.2 x10^3/uL (0.0-1.1); MONO % 3 % (0-9); NEUT # 7.8 x10^3uL (1.8-7.7); NEUT % 90 % (31-73); PLATELET COUNT 151 x10^3/uL (140-400); RED BLOOD COUNT 3.13 x10^6/uL (4.30-5.70); RED CELL DISTRIBUTION WIDTH 14.6 % (11.5-14.5); WHITE BLOOD COUNT 8.6 x10^3/uL (4.0-11.0)
[2018-09-10 06:04] LABS: CALCIUM 8.9 mg/dL (8.5-10.1); CREATININE 1.9 mg/dL (0.7-1.3); GFR 33.9; POTASSIUM 4.6 mmol/L (3.5-5.1)
[2018-09-10] MEDS: methylPREDNISolone SOD SUCC PF 40 MG/ML VIAL. IV SCH ×2 (06:36→20:12)
[2018-09-10 07:05] VITALS: BP 166/81
[2018-09-10] MEDS: BUDESONIDE 0.5 MG/2 ML NEBU. NEB SCH ×2 (07:39→19:27)
[2018-09-10] MEDS: IPRATRPIUM/ALBUTEROL 0.5/2.5MG 3 ML NEBU. NEB SCH ×4 (07:39→19:24)
[2018-09-10] MEDS: INSULIN LISPRO 300 UNITS/3 ML INSULN.PEN. SQ SCH ×3 (08:00→17:00)
[2018-09-10] MEDS: FERROUS SULFATE 325 MG TABLET. PO SCH (08:00)
--- NOTE | 2018-09-10 08:59 | NUR ---
IP: Notified by nurse of pt having shingles on buttocks. Pt to be in contact precautions until lesions are dried.
[2018-09-10] MEDS ORDERED: NON FORMULARY ITEM (Fluticasone Propionate (Flonase Allergy Relief) 2 SPRAYS) NS SCH (09:00)
[2018-09-10] MEDS: SENNOSIDES 8.6 MG TABLET PO SCH (09:11)
[2018-09-10] MEDS: LACTOBACILLUS RHAMNOSUS GG 1 CAPSULE. PO SCH ×2 (09:11→20:10)
[2018-09-10] MEDS: ACYCLOVIR 200 MG CAPSULE. PO SCH ×2 (09:11→20:10)
[2018-09-10] MEDS: PANTOPRAZOLE 40 MG TABLET.DR. PO SCH (09:11)
[2018-09-10] MEDS: ASCORBIC ACID 500 MG TABLET PO SCH (09:11)
[2018-09-10] MEDS: CALCIUM CARB/VIT D3 500/200 TABLET. PO SCH (09:11)
[2018-09-10] MEDS: DOXAZOSIN MESYLATE 4 MG TABLET. PO SCH (09:12)
[2018-09-10] MEDS: AMOXICILLIN/K CLAV 500/125MG TABLET. PO SCH ×2 (09:12→17:42)
[2018-09-10] MEDS: MULTIVITAMIN with MINERAL TABLET. PO SCH (09:12)
[2018-09-10] MEDS: CARVEDILOL 3.125 MG TABLET. PO SCH ×2 (09:13→17:43)
[2018-09-10] MEDS: CETIRIZINE HCL 10 MG TABLET. PO SCH (09:14)
[2018-09-10] MEDS: FLUTICASONE 50MCG/NASAL SPRAY 16GM BOTTLE. NS SCH (09:14)
[2018-09-10] MEDS: ASPIRIN CHEWABLE 81 MG TABLET. PO SCH (09:14)
[2018-09-10] MEDS: hydrALAZINE 25 MG TABLET PO SCH ×2 (09:14→20:10)
[2018-09-10] MEDS: CYANOCOBALAMIN (VITAMIN B-12) 1,000 MCG TABLET. PO SCH (09:14)
[2018-09-10] MEDS: ENOXAPARIN 30 MG/0.3 ML SYRINGE. SQ SCH (09:15)
[2018-09-10] MEDS: FUROSEMIDE 40 MG TABLET. PO SCH (09:15)
[2018-09-10] MEDS: DICLOFENAC SODIUM 1% TOPICAL GEL 100GM TUBE. TP SCH ×2 (09:16→20:11)
--- NOTE | 2018-09-10 10:00 | PDOC ---
PULMONARY PROGRESS NOTES Subjective FEELS BETTER Vitals Vital Signs Date Time Temp Pulse Resp B/P (MAP) Pulse Ox O2 Delivery O2 Flow Rate FiO2 09/10/18 09:14 57 166/81 09/10/18 07:41 98 Room Air 09/10/18 07:05 98.2 18 98.2 General: Alert, Oriented X4, No acute distress Lungs: Other (rhonchi right chest) Cardiovascular: S2 Abdomen: Soft, Non-tender Neuro Exam: Alert Extremities: No Edema Labs Laboratory Tests Test 09/08/18 17:55 09/08/18 18:15 09/09/18 02:35 09/09/18 11:31 White Blood Count 6.1 x10^3/uL (4.0-11.0) 5.5 x10^3/uL (4.0-11.0) Red Blood Count 3.22 x10^6/uL (4.30-5.70) 3.04 x10^6/uL (4.30-5.70) Hemoglobin 9.9 g/dL (13.0-17.5) 9.4 g/dL (13.0-17.5) Hematocrit 29.9 % (39.0-53.0) 28.1 % (39.0-53.0) Mean Corpuscular Volume 93 fL (79-100) 93 fL (79-100) Mean Corpuscular Hemoglobin 31 pg (25-35) 31 pg (25-35) Mean Corpuscular Hemoglobin Concent 33 g/dL (31-37) 34 g/dL (31-37) Red Cell Distribution Width 14.5 % (11.5-14.5) 14.5 % (11.5-14.5) Platelet Count 147 x10^3/uL (140-400) 140 x10^3/uL (140-400) Neutrophils (%) (Auto) 87 % (31-73) 91 % (31-73) Lymphocytes (%) (Auto) 8 % (24-48) 8 % (24-48) Monocytes (%) (Auto) 5 % (0-9) 1 % (0-9) Eosinophils (%) (Auto) 0 % (0-3) 0 % (0-3) Basophils (%) (Auto) 0 % (0-3) 0 % (0-3) Neutrophils # (Auto) 5.3 x10^3uL (1.8-7.7) 5.0 x10^3uL (1.8-7.7) Lymphocytes # (Auto) 0.5 x10^3/uL (1.0-4.8) 0.4 x10^3/uL (1.0-4.8) Monocytes # (Auto) 0.3 x10^3/uL (0.0-1.1) 0.1 x10^3/uL (0.0-1.1) Eosinophils # (Auto) 0.0 x10^3/uL (0.0-0.7) 0.0 x10^3/uL (0.0-0.7) Basophils # (Auto) 0.0 x10^3/uL (0.0-0.2) 0.0 x10^3/uL (0.0-0.2) Segmented Neutrophils % 92 % (35-66) Lymphocytes % 4 % (24-48) Monocytes % 4 % (0-10) Toxic Granulation Slight Platelet Estimate Adequate (ADEQUATE) Sodium Level 144 mmol/L (136-145) 142 mmol/L (136-145) Potassium Level 4.3 mmol/L (3.5-5.1) 4.6 mmol/L (3.5-5.1) Chloride Level 109 mmol/L (98-107) 107 mmol/L (98-107) Carbon Dioxide Level 25 mmol/L (21-32) 23 mmol/L (21-32) Anion Gap 10 (6-14) 12 (6-14) Blood Urea Nitrogen 34 mg/dL (8-26) 34 mg/dL (8-26) Creatinine 2.0 mg/dL (0.7-1.3) 2.1 mg/dL (0.7-1.3) Estimated GFR (Cockcroft-Gault) 31.9 30.2 BUN/Creatinine Ratio 17 (6-20) 16 (6-20) Glucose Level 167 mg/dL (70-99) 246 mg/dL (70-99) Calcium Level 8.3 mg/dL (8.5-10.1) 8.2 mg/dL (8.5-10.1) Total Bilirubin 0.3 mg/dL (0.2-1.0) 0.2 mg/dL (0.2-1.0) Aspartate Amino Transf (AST/SGOT) 19 U/L (15-37) 18 U/L (15-37) Alanine Aminotransferase (ALT/SGPT) 24 U/L (16-63) 23 U/L (16-63) Alkaline Phosphatase 52 U/L (46-116) 51 U/L (46-116) Troponin I Quantitative < 0.017 ng/mL (0.000-0.055) 0.024 ng/mL (0.000-0.055) ZC-Nhj-I-Type Natriuretic Peptide 4426 pg/mL (0-449) Total Protein 6.3 g/dL (6.4-8.2) 5.8 g/dL (6.4-8.2) Albumin 3.3 g/dL (3.4-5.0) 3.0 g/dL (3.4-5.0) Albumin/Globulin Ratio 1.1 (1.0-1.7) 1.1 (1.0-1.7) Urine Collection Type Unknown Urine Color Yellow Urine Clarity Clear Urine pH 5.0 Urine Specific [place] 1.020 Urine Protein Negative mg/dL (NEG-TRACE) Urine Glucose (UA) Negative mg/dL (NEG) Urine Ketones (Stick) Negative mg/dL (NEG) Urine Blood Negative (NEG) Urine Nitrite Negative (NEG) Urine Bilirubin Negative (NEG) Urine Urobilinogen Dipstick 0.2 mg/dL (0.2 mg/dL) Urine Leukocyte Esterase Negative (NEG) Urine RBC Occ /HPF (0-2) Urine WBC 0 /HPF (0-4) Urine Bacteria 0 /HPF (0-FEW) Urine Hyaline Casts Few /HPF Urine Mucus Mod /LPF Glucose (Fingerstick) 109 mg/dL (70-99) Test 09/09/18 17:19 09/09/18 20:58 09/10/18 05:30 09/10/18 07:21 Glucose (Fingerstick) 145 mg/dL (70-99) 196 mg/dL (70-99) 125 mg/dL (70-99) White Blood Count 8.6 x10^3/uL (4.0-11.0) Red Blood Count 3.13 x10^6/uL (4.30-5.70) Hemoglobin 9.7 g/dL (13.0-17.5) Hematocrit 29.0 % (39.0-53.0) Mean Corpuscular Volume 93 fL (79-100) Mean Corpuscular Hemoglobin 31 pg (25-35) Mean Corpuscular Hemoglobin Concent 34 g/dL (31-37) Red Cell Distribution Width 14.6 % (11.5-14.5) Platelet Count 151 x10^3/uL (140-400) Neutrophils (%) (Auto) 90 % (31-73) Lymphocytes (%) (Auto) 7 % (24-48) Monocytes (%) (Auto) 3 % (0-9) Eosinophils (%) (Auto) 0 % (0-3) Basophils (%) (Auto) 0 % (0-3) Neutrophils # (Auto) 7.8 x10^3uL (1.8-7.7) Lymphocytes # (Auto) 0.6 x10^3/uL (1.0-4.8) Monocytes # (Auto) 0.2 x10^3/uL (0.0-1.1) Eosinophils # (Auto) 0.0 x10^3/uL (0.0-0.7) Basophils # (Auto) 0.0 x10^3/uL (0.0-0.2) Sodium Level 144 mmol/L (136-145) Potassium Level 4.6 mmol/L (3.5-5.1) Chloride Level 108 mmol/L (98-107) Carbon Dioxide Level 27 mmol/L (21-32) Anion Gap 9 (6-14) Blood Urea Nitrogen 44 mg/dL (8-26) Creatinine 1.9 mg/dL (0.7-1.3) Estimated GFR (Cockcroft-Gault) 33.9 Glucose Level 156 mg/dL (70-99) Calcium Level 8.9 mg/dL (8.5-10.1) Laboratory Tests Test 09/09/18 11:31 09/09/18 17:19 09/09/18 20:58 09/10/18 05:30 Glucose (Fingerstick) 109 mg/dL (70-99) 145 mg/dL (70-99) 196 mg/dL (70-99) White Blood Count 8.6 x10^3/uL (4.0-11.0) Red Blood Count 3.13 x10^6/uL (4.30-5.70) Hemoglobin 9.7 g/dL (13.0-17.5) Hematocrit 29.0 % (39.0-53.0) Mean Corpuscular Volume 93 fL (79-100) Mean Corpuscular Hemoglobin 31 pg (25-35) Mean Corpuscular Hemoglobin Concent 34 g/dL (31-37) Red Cell Distribution Width 14.6 % (11.5-14.5) Platelet Count 151 x10^3/uL (140-400) Neutrophils (%) (Auto) 90 % (31-73) Lymphocytes (%) (Auto) 7 % (24-48) Monocytes (%) (Auto) 3 % (0-9) Eosinophils (%) (Auto) 0 % (0-3) Basophils (%) (Auto) 0 % (0-3) Neutrophils # (Auto) 7.8 x10^3uL (1.8-7.7) Lymphocytes # (Auto) 0.6 x10^3/uL (1.0-4.8) Monocytes # (Auto) 0.2 x10^3/uL (0.0-1.1) Eosinophils # (Auto) 0.0 x10^3/uL (0.0-0.7) Basophils # (Auto) 0.0 x10^3/uL (0.0-0.2) Sodium Level 144 mmol/L (136-145) Potassium Level 4.6 mmol/L (3.5-5.1) Chloride Level 108 mmol/L (98-107) Carbon Dioxide Level 27 mmol/L (21-32) Anion Gap 9 (6-14) Blood Urea Nitrogen 44 mg/dL (8-26) Creatinine 1.9 mg/dL (0.7-1.3) Estimated GFR (Cockcroft-Gault) 33.9 Glucose Level 156 mg/dL (70-99) Calcium Level 8.9 mg/dL (8.5-10.1) Test 09/10/18 07:21 Glucose (Fingerstick) 125 mg/dL (70-99) Medications Active Scripts Medications Dose Route/Sig Max Daily Dose Days Date Category C-1000 (Ascorbic Acid) 1,000 Mg Tablet.er 1,000 Mg PO DAILY 09/09/18 Reported Senokot (Sennosides) 8.6 Mg Tablet 8.6 Mg PO DAILY 09/09/18 Reported Ferrous Sulfate 325 Mg Tablet 325 Mg PO DAILY 09/09/18 Reported Claritin (Loratadine) 10 Mg Tablet 10 Mg PO DAILY 09/09/18 Reported Cardura (Doxazosin Mesylate) 8 Mg Tablet 8 Mg PO DAILY 09/09/18 Reported Furosemide 40 Mg Tablet 40 Mg PO DAILY 09/09/18 Reported Nitrostat (Nitroglycerin) 0.4 Mg Tab.subl 0.4 Mg SL PRN Q5MIN PRN 09/09/18 Reported Flonase Allergy Relief (Fluticasone Propionate) 9.9 Ml [place].susp 2 Sprays NS DAILY 09/09/18 Reported Calcium 500-Vit D3 600 Tablet (Calcium Carbonate/Vitamin D3) 1 Each Tablet 1 Each PO DAILY 09/09/18 Reported Tylenol (Acetaminophen) 325 Mg Tablet 650 Mg PO PRN Q6HRS PRN 30 05/11/18 Rx Voltaren (Diclofenac Sodium) 100 Gm Gel..gram. 1 Roz TP BID 30 05/11/18 Rx Prednisone (Prednisone) 10 Mg Tablet 10 Mg PO DAILY 07/01/17 Rx Vitamin B-12 (Cyanocobalamin (Vitamin B-12)) 1,000 Mcg Tablet 1,000 Mcg PO DAILY 03/24/14 Rx Fluticasone Propionate Nasal [place] (Fluticasone Propionate) 16 Gm [place].susp 2 [place] NS DAILY 03/20/14 Reported Singulair Tablet (Montelukast Sodium) 10 Mg Tablet 10 Mg PO HS 03/20/14 Reported Centrum Silver Tablet (Multivits-Min/Fa/Lycopene/Lut) 1 Each Tablet 1 Each PO DAILY 03/20/14 Reported Carvedilol (Carvedilol) 3.125 Mg Tablet 1 Tab PO BID 03/20/14 Reported Hydralazine Hcl 25 Mg Tablet 1 Tab PO BID 03/20/14 Reported Aspirin 81 Mg Tab.chew 325 Mg PO DAILY 08/03/13 Reported Omeprazole 40 Mg Capsule.dr 40 Mg PO DAILY07 08/03/13 Reported Mirtazapine 7.5 Mg Tablet 7.5 Mg PO HS 08/03/13 Reported Simvastatin 20 Mg Tablet 20 Mg PO HS 08/03/13 Reported Symbicort 160-4.5 Mcg Inhaler (Budesonide/Formoterol Fumarate) 10.2 Gm Hfa.aer.ad 2 Inhaler IH BID 08/03/13 Reported Albuterol Sulfate Conc Neb Soln (Albuterol Sulfate) 2.5 Mg/0.5 Ml Vial.neb 2.5 Mg IH [id number] 08/03/13 Reported Acyclovir 400 Mg Tablet 400 Mg PO TID PRN 08/03/13 Reported Impression . 1. Dyspnea secondary to acute exacerbation of chronic obstructive pulmonary disease. 2. Acute bronchitis, could be viral. No definite consolidation seen on the chest x-ray. 3. Underlying obesity with a BMI of 31. Plan . 1. Continue with present DuoNebs. 2. Low dose steroids. 3. Lovenox for DVT prophylaxis. 4. P.r.n. oxygen. 5. DC plans per Dr Lopez. ok by me Discussed with RN. WESTON VÁSQUEZ MD September 10, 2018 10:00
--- NOTE | 2018-09-10 10:35 | PDOC ---
IM PROGRESS NOTES- Subjective Subjective Has some cough and congestion,recurrent herpes with use of steroids. Objective Vitals Vital Signs Date Time Temp Pulse Resp B/P (MAP) Pulse Ox O2 Delivery O2 Flow Rate FiO2 09/10/18 09:14 57 166/81 09/10/18 07:41 98 Room Air 09/10/18 07:05 98.2 18 98.2 Input & Output Intake and Output 09/10/18 06:59 Intake Total 1400 ml Balance 1400 ml Intake Oral 1400 ml # Voids 13 # Bowel Movements 4 Physical Exam Physical Exam General appearance - alert,ill appearing, and in no distress and oriented to person, place, and time Mental Status - alert, anxious Head - normal Chest -eve. rhonchi,wheezing decreased Heart - S1 and S2 normal Abdomen - soft, nontender, nondistended, no masses or organomegaly Neurological - alert and oriented Musculoskeletal - no muscular tenderness noted Extremities - no pedal edema Skin - warm and dry Labs Laboratory Tests Test 09/08/18 17:55 09/08/18 18:15 09/09/18 02:35 09/09/18 11:31 White Blood Count 6.1 x10^3/uL (4.0-11.0) 5.5 x10^3/uL (4.0-11.0) Red Blood Count 3.22 x10^6/uL (4.30-5.70) 3.04 x10^6/uL (4.30-5.70) Hemoglobin 9.9 g/dL (13.0-17.5) 9.4 g/dL (13.0-17.5) Hematocrit 29.9 % (39.0-53.0) 28.1 % (39.0-53.0) Mean Corpuscular Volume 93 fL (79-100) 93 fL (79-100) Mean Corpuscular Hemoglobin 31 pg (25-35) 31 pg (25-35) Mean Corpuscular Hemoglobin Concent 33 g/dL (31-37) 34 g/dL (31-37) Red Cell Distribution Width 14.5 % (11.5-14.5) 14.5 % (11.5-14.5) Platelet Count 147 x10^3/uL (140-400) 140 x10^3/uL (140-400) Neutrophils (%) (Auto) 87 % (31-73) 91 % (31-73) Lymphocytes (%) (Auto) 8 % (24-48) 8 % (24-48) Monocytes (%) (Auto) 5 % (0-9) 1 % (0-9) Eosinophils (%) (Auto) 0 % (0-3) 0 % (0-3) Basophils (%) (Auto) 0 % (0-3) 0 % (0-3) Neutrophils # (Auto) 5.3 x10^3uL (1.8-7.7) 5.0 x10^3uL (1.8-7.7) Lymphocytes # (Auto) 0.5 x10^3/uL (1.0-4.8) 0.4 x10^3/uL (1.0-4.8) Monocytes # (Auto) 0.3 x10^3/uL (0.0-1.1) 0.1 x10^3/uL (0.0-1.1) Eosinophils # (Auto) 0.0 x10^3/uL (0.0-0.7) 0.0 x10^3/uL (0.0-0.7) Basophils # (Auto) 0.0 x10^3/uL (0.0-0.2) 0.0 x10^3/uL (0.0-0.2) Segmented Neutrophils % 92 % (35-66) Lymphocytes % 4 % (24-48) Monocytes % 4 % (0-10) Toxic Granulation Slight Platelet Estimate Adequate (ADEQUATE) Sodium Level 144 mmol/L (136-145) 142 mmol/L (136-145) Potassium Level 4.3 mmol/L (3.5-5.1) 4.6 mmol/L (3.5-5.1) Chloride Level 109 mmol/L (98-107) 107 mmol/L (98-107) Carbon Dioxide Level 25 mmol/L (21-32) 23 mmol/L (21-32) Anion Gap 10 (6-14) 12 (6-14) Blood Urea Nitrogen 34 mg/dL (8-26) 34 mg/dL (8-26) Creatinine 2.0 mg/dL (0.7-1.3) 2.1 mg/dL (0.7-1.3) Estimated GFR (Cockcroft-Gault) 31.9 30.2 BUN/Creatinine Ratio 17 (6-20) 16 (6-20) Glucose Level 167 mg/dL (70-99) 246 mg/dL (70-99) Calcium Level 8.3 mg/dL (8.5-10.1) 8.2 mg/dL (8.5-10.1) Total Bilirubin 0.3 mg/dL (0.2-1.0) 0.2 mg/dL (0.2-1.0) Aspartate Amino Transf (AST/SGOT) 19 U/L (15-37) 18 U/L (15-37) Alanine Aminotransferase (ALT/SGPT) 24 U/L (16-63) 23 U/L (16-63) Alkaline Phosphatase 52 U/L (46-116) 51 U/L (46-116) Troponin I Quantitative < 0.017 ng/mL (0.000-0.055) 0.024 ng/mL (0.000-0.055) LA-Yux-G-Type Natriuretic Peptide 4426 pg/mL (0-449) Total Protein 6.3 g/dL (6.4-8.2) 5.8 g/dL (6.4-8.2) Albumin 3.3 g/dL (3.4-5.0) 3.0 g/dL (3.4-5.0) Albumin/Globulin Ratio 1.1 (1.0-1.7) 1.1 (1.0-1.7) Urine Collection Type Unknown Urine Color Yellow Urine Clarity Clear Urine pH 5.0 Urine Specific [place] 1.020 Urine Protein Negative mg/dL (NEG-TRACE) Urine Glucose (UA) Negative mg/dL (NEG) Urine Ketones (Stick) Negative mg/dL (NEG) Urine Blood Negative (NEG) Urine Nitrite Negative (NEG) Urine Bilirubin Negative (NEG) Urine Urobilinogen Dipstick 0.2 mg/dL (0.2 mg/dL) Urine Leukocyte Esterase Negative (NEG) Urine RBC Occ /HPF (0-2) Urine WBC 0 /HPF (0-4) Urine Bacteria 0 /HPF (0-FEW) Urine Hyaline Casts Few /HPF Urine Mucus Mod /LPF Glucose (Fingerstick) 109 mg/dL (70-99) Test 09/09/18 17:19 09/09/18 20:58 09/10/18 05:30 09/10/18 07:21 Glucose (Fingerstick) 145 mg/dL (70-99) 196 mg/dL (70-99) 125 mg/dL (70-99) White Blood Count 8.6 x10^3/uL (4.0-11.0) Red Blood Count 3.13 x10^6/uL (4.30-5.70) Hemoglobin 9.7 g/dL (13.0-17.5) Hematocrit 29.0 % (39.0-53.0) Mean Corpuscular Volume 93 fL (79-100) Mean Corpuscular Hemoglobin 31 pg (25-35) Mean Corpuscular Hemoglobin Concent 34 g/dL (31-37) Red Cell Distribution Width 14.6 % (11.5-14.5) Platelet Count 151 x10^3/uL (140-400) Neutrophils (%) (Auto) 90 % (31-73) Lymphocytes (%) (Auto) 7 % (24-48) Monocytes (%) (Auto) 3 % (0-9) Eosinophils (%) (Auto) 0 % (0-3) Basophils (%) (Auto) 0 % (0-3) Neutrophils # (Auto) 7.8 x10^3uL (1.8-7.7) Lymphocytes # (Auto) 0.6 x10^3/uL (1.0-4.8) Monocytes # (Auto) 0.2 x10^3/uL (0.0-1.1) Eosinophils # (Auto) 0.0 x10^3/uL (0.0-0.7) Basophils # (Auto) 0.0 x10^3/uL (0.0-0.2) Sodium Level 144 mmol/L (136-145) Potassium Level 4.6 mmol/L (3.5-5.1) Chloride Level 108 mmol/L (98-107) Carbon Dioxide Level 27 mmol/L (21-32) Anion Gap 9 (6-14) Blood Urea Nitrogen 44 mg/dL (8-26) Creatinine 1.9 mg/dL (0.7-1.3) Estimated GFR (Cockcroft-Gault) 33.9 Glucose Level 156 mg/dL (70-99) Calcium Level 8.9 mg/dL (8.5-10.1) Laboratory Tests Test 09/09/18 11:31 09/09/18 17:19 09/09/18 20:58 09/10/18 05:30 Glucose (Fingerstick) 109 mg/dL (70-99) 145 mg/dL (70-99) 196 mg/dL (70-99) White Blood Count 8.6 x10^3/uL (4.0-11.0) Red Blood Count 3.13 x10^6/uL (4.30-5.70) Hemoglobin 9.7 g/dL (13.0-17.5) Hematocrit 29.0 % (39.0-53.0) Mean Corpuscular Volume 93 fL (79-100) Mean Corpuscular Hemoglobin 31 pg (25-35) Mean Corpuscular Hemoglobin Concent 34 g/dL (31-37) Red Cell Distribution Width 14.6 % (11.5-14.5) Platelet Count 151 x10^3/uL (140-400) Neutrophils (%) (Auto) 90 % (31-73) Lymphocytes (%) (Auto) 7 % (24-48) Monocytes (%) (Auto) 3 % (0-9) Eosinophils (%) (Auto) 0 % (0-3) Basophils (%) (Auto) 0 % (0-3) Neutrophils # (Auto) 7.8 x10^3uL (1.8-7.7) Lymphocytes # (Auto) 0.6 x10^3/uL (1.0-4.8) Monocytes # (Auto) 0.2 x10^3/uL (0.0-1.1) Eosinophils # (Auto) 0.0 x10^3/uL (0.0-0.7) Basophils # (Auto) 0.0 x10^3/uL (0.0-0.2) Sodium Level 144 mmol/L (136-145) Potassium Level 4.6 mmol/L (3.5-5.1) Chloride Level 108 mmol/L (98-107) Carbon Dioxide Level 27 mmol/L (21-32) Anion Gap 9 (6-14) Blood Urea Nitrogen 44 mg/dL (8-26) Creatinine 1.9 mg/dL (0.7-1.3) Estimated GFR (Cockcroft-Gault) 33.9 Glucose Level 156 mg/dL (70-99) Calcium Level 8.9 mg/dL (8.5-10.1) Test 09/10/18 07:21 Glucose (Fingerstick) 125 mg/dL (70-99) Meds Current Medications Acyclovir (Zovirax) 400 mg [id number] PO Last administered on 09/10/18 09:11; Start 09/09/18 at 14:00 Albuterol Sulfate (Ventolin Neb Soln) 2.5 mg RTQID NEB ; Start 09/09/18 at 12:00; Stop 09/09/18 at 12:53; Status DC Amoxicillin/ Clavulanate Potassium (Augmentin 500/ 125mg) 1 tab BIDAC PO ; Start 09/10/18 at 16:30; Status UNV Amoxicillin/ Clavulanate Potassium (Augmentin 500/ 125mg) 1 tab DAILY PO Last administered on 09/10/18 09:12; Start 09/09/18 at 11:00; Stop 09/10/18 at 10:28; Status DC Ascorbic Acid (Vitamin C) 1,000 mg DAILY PO Last administered on 09/10/18 09:11; Start 09/09/18 at 11:00 Aspirin (Children'S Aspirin) 324 mg DAILY PO Last administered on 09/10/18 09:14; Start 09/10/18 at 09:00 Budesonide (Pulmicort) 0.5 mg RTBID NEB Last administered on 09/10/18 07:39; Start 09/09/18 at 20:00 Calcium/Vitamin D (Oscal D 500mg/ 200uts) 1 tab DAILY PO Last administered on 09/10/18 09:11; Start 09/09/18 at 11:00 Carvedilol (Coreg) 3.125 mg BIDWMEALS PO Last administered on 09/10/18 09:13; Start 09/09/18 at 12:00 Cetirizine HCl (ZyrTEC) 10 mg DAILY PO Last administered on 09/10/18 09:14; Start 09/09/18 at 11:00 Cyanocobalamin (Vitamin B-12) 1,000 mcg DAILY PO Last administered on 09/10/18 09:14; Start 09/09/18 at 11:00 Diclofenac Sodium (Voltaren) 1 naif BID TP Last administered on 09/10/18 09:16; Start 09/09/18 at 11:00 Doxazosin Mesylate (Cardura) 8 mg DAILY PO Last administered on 09/10/18 09:12; Start 09/09/18 at 11:00 Enoxaparin Sodium (Lovenox 30mg Syringe) 30 mg DAILY SQ Last administered on 09/10/18 09:15; Start 09/09/18 at 16:00 Ferrous Sulfate (Feosol) 325 mg DAILY08 PO ; Start 09/09/18 at 12:00 Heparin Sodium (Porcine) (Heparin Sodium) 5,000 unit Q12HR SQ ; Start 09/09/18 at 11:00; Stop 09/09/18 at 11:32; Status DC Hydralazine HCl (Apresoline) 25 mg BID PO Last administered on 09/10/18 09:14; Start 09/09/18 at 11:00 Insulin Human Lispro (HumaLOG) 0-6 UNITS TIDWMEALS SQ ; Start 09/09/18 at 12:00 Lactobacillus Rhamnosus (Culturelle) 1 cap BID PO Last administered on 09/10/18 09:11; Start 09/09/18 at 21:00 Methylprednisolone Sodium Succinate (SOLU-Medrol 40MG VIAL) 40 mg [id number] IV ; Start 09/10/18 at 14:00; Status UNV Mirtazapine (Remeron) 7.5 mg HS PO Last administered on 09/09/18 20:06; Start 09/09/18 at 21:00 Montelukast Sodium (Singulair) 10 mg QHS PO Last administered on 09/09/18 20:07; Start 09/09/18 at 21:00 Multivitamins (Thera M Plus) 1 tab DAILY PO Last administered on 09/10/18 09:12; Start 09/09/18 at 11:00 Non-Formulary Medication (Albuterol Sulfate (Albuterol Sulfate Conc Neb Soln)) 2.5 mg [id number] IH ; Start 09/09/18 at 13:00; Status UNV Non-Formulary Medication (Budesonide/ Formoterol Fumarate (Symbicort 160-4.5 Mcg Inhaler)) 2 inhaler BID IH ; Start 09/09/18 at 21:00; Stop 09/09/18 at 21:00; Status DC Non-Formulary Medication (Fluticasone Propionate (Flonase Allergy Relief)) 2 sprays DAILY NS ; Start 09/10/18 at 09:00; Status UNV Pantoprazole Sodium (Protonix) 40 mg DAILYAC PO Last administered on 09/10/18at 09:11; Start 09/09/18 at 11:30 Sennosides (Senna) 8.6 mg DAILY PO Last administered on 09/10/18at 09:11; Start 09/09/18 at 10:45 Simvastatin (Zocor) 20 mg HS PO Last administered on 09/09/18at 20:06; Start 09/09/18 at 21:00 Assessment Assessment 1. Acute bronchitis, not responding to outpatient treatment. 2. Acute exacerbation of chronic obstructive pulmonary disease, not responding to outpatient treatment. 3. Diabetes mellitus type 2, not controlled. 4. 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 5. Coronary artery disease. 6. History of deep venous thrombosis. 7. History of Clostridium difficile colitis. 8. Benign prostatic hypertrophy. 9. Anxiety. PLAN: Continue IV steroids. We will consult Dr. Darrius Dye because of recent treatment with multiple antibiotics and history of Clostridium difficile colitis. He is responding to IV steroids. Consult Dr. Ribeiro for pulmonary evaluation and management and Dr. Bustamante for nephrology evaluation and management. For details, please review the orders. CKD 3-4 unchanged. COPD exacerbation- improving.Decrease steroids. Plan Plan For more details regarding further plans, please refer to the orders. MARCELLUS FIERRO MD September 10, 2018 10:35
--- NOTE | 2018-09-10 10:57 | PDOC ---
Infectious Disease Note ROS: ROS Negative except for above. Vital Signs: Vital Signs Vital Signs Date Time Temp Pulse Resp B/P (MAP) Pulse Ox O2 Delivery O2 Flow Rate FiO2 09/10/18 09:14 57 166/81 09/10/18 07:41 98 Room Air 09/10/18 07:05 98.2 18 98.2 Physical Exam: PHYSICAL EXAM GENERAL: Alert, awake, pleasant male, lying in bed comfortably, in no acute distress. HEENT: Normocephalic, atraumatic, anicteric. No thrush. Oral mucosa moist. NECK: Supple. LUNGS: Decreased breath sounds at the bases. Few expiratory rhonchi. HEART: S1, S2, no murmurs. ABDOMEN: Soft, obese. Bowel sounds present. EXTREMITIES: No edema. CENTRAL NERVOUS SYSTEM: Alert and oriented x 3. Grossly nonfocal. PSYCHIATRIC: Cooperative, appropriate mood and affect. DERMATOLOGIC: Warm, dry. No generalized rash. Medications: Inpatient Meds: Current Medications Medications (Trade) Dose Ordered Sig/Juhi Start Time Stop Time Status Last Admin Dose Admin Acetaminophen (Tylenol) 650 mg PRN Q6HRS PRN 09/09/18 09:45 Acyclovir (Zovirax) 400 mg [id number] 09/09/18 14:00 09/10/18 09:11 400 MG Albuterol Sulfate (Ventolin Neb Soln) 2.5 mg RTQID 09/09/18 12:00 09/09/18 12:53 DC Albuterol/ Ipratropium (Duoneb) 3 ml RTQID 09/09/18 08:00 09/10/18 07:39 3 ML Amoxicillin/ Clavulanate Potassium (Augmentin 500/ 125mg) 1 tab BIDAC 09/10/18 16:30 Ascorbic Acid (Vitamin C) 1,000 mg DAILY 09/09/18 11:00 09/10/18 09:11 1,000 MG Aspirin (Children'S Aspirin) 324 mg DAILY 09/10/18 09:00 09/10/18 09:14 324 MG Budesonide (Pulmicort) 0.5 mg RTBID 09/09/18 20:00 09/10/18 07:39 0.5 MG Calcium/Vitamin D (Oscal D 500mg/ 200uts) 1 tab DAILY 09/09/18 11:00 09/10/18 09:11 1 TAB Carvedilol (Coreg) 3.125 mg BIDWMEALS 09/09/18 12:00 09/10/18 09:13 3.125 MG Cetirizine HCl (ZyrTEC) 10 mg DAILY 09/09/18 11:00 09/10/18 09:14 10 MG Cyanocobalamin (Vitamin B-12) 1,000 mcg DAILY 09/09/18 11:00 09/10/18 09:14 1,000 MCG Dextrose (Dextrose 50%-Water Syringe) 12.5 gm PRN Q15MIN PRN 09/09/18 09:45 Diclofenac Sodium (Voltaren) 1 naif BID 09/09/18 11:00 09/10/18 09:16 1 NAIF Doxazosin Mesylate (Cardura) 8 mg DAILY 09/09/18 11:00 09/10/18 09:12 8 MG Enoxaparin Sodium (Lovenox 30mg Syringe) 30 mg DAILY 09/09/18 16:00 09/10/18 09:15 30 MG Fentanyl Citrate (Fentanyl 2ml Vial) 50 mcg PRN Q1HR PRN 09/08/18 20:45 09/09/18 20:44 DC Ferrous Sulfate (Feosol) 325 mg DAILY08 09/09/18 12:00 Fluticasone Propionate (Flonase) 2 spray DAILY 09/09/18 10:00 09/10/18 09:14 2 SPRAY Furosemide (Lasix) 40 mg DAILY 09/09/18 09:45 09/10/18 09:15 40 MG Heparin Sodium (Porcine) (Heparin Sodium) 5,000 unit Q12HR 09/09/18 11:00 09/09/18 11:32 DC Hydralazine HCl (Apresoline) 25 mg BID 09/09/18 11:00 09/10/18 09:14 25 MG Insulin Human Lispro (HumaLOG) 0-6 UNITS TIDWMEALS 09/09/18 12:00 Lactobacillus Rhamnosus (Culturelle) 1 cap BID 09/09/18 21:00 09/10/18 09:11 1 CAP Methylprednisolone Sodium Succinate (SOLU-Medrol 40MG VIAL) 40 mg BID 09/10/18 21:00 Methylprednisolone Sodium Succinate (SOLU-Medrol 125MG VIAL) 125 mg 1X ONCE 09/08/18 17:30 09/08/18 17:31 DC 09/08/18 18:20 125 MG Mirtazapine (Remeron) 7.5 mg HS 09/09/18 21:00 09/09/18 20:06 7.5 MG Montelukast Sodium (Singulair) 10 mg QHS 09/09/18 21:00 09/09/18 20:07 10 MG Multivitamins (Thera M Plus) 1 tab DAILY 09/09/18 11:00 09/10/18 09:12 1 TAB Nitroglycerin (Nitrostat) 0.4 mg PRN Q5MIN PRN 09/09/18 09:45 Non-Formulary Medication (Albuterol Sulfate (Albuterol Sulfate Conc Neb Soln)) 2.5 mg [id number] 09/09/18 13:00 UNV Non-Formulary Medication (Budesonide/ Formoterol Fumarate (Symbicort 160-4.5 Mcg Inhaler)) 2 inhaler BID 09/09/18 21:00 09/09/18 21:00 DC Non-Formulary Medication (Fluticasone Propionate (Flonase Allergy Relief)) 2 sprays DAILY 09/10/18 09:00 UNV Ondansetron HCl (Zofran) 4 mg PRN Q8HRS PRN 09/08/18 20:45 09/09/18 20:44 DC Pantoprazole Sodium (Protonix) 40 mg DAILYAC 09/09/18 11:30 09/10/18 09:11 40 MG Sennosides (Senna) 8.6 mg DAILY 09/09/18 10:45 09/10/18 09:11 8.6 MG Simvastatin (Zocor) 20 mg HS 09/09/18 21:00 09/09/18 20:06 20 MG Labs: Lab Laboratory Tests Test 09/09/18 11:31 09/09/18 17:19 09/09/18 20:58 09/10/18 05:30 Glucose (Fingerstick) 109 mg/dL (70-99) 145 mg/dL (70-99) 196 mg/dL (70-99) White Blood Count 8.6 x10^3/uL (4.0-11.0) Red Blood Count 3.13 x10^6/uL (4.30-5.70) Hemoglobin 9.7 g/dL (13.0-17.5) Hematocrit 29.0 % (39.0-53.0) Mean Corpuscular Volume 93 fL (79-100) Mean Corpuscular Hemoglobin 31 pg (25-35) Mean Corpuscular Hemoglobin Concent 34 g/dL (31-37) Red Cell Distribution Width 14.6 % (11.5-14.5) Platelet Count 151 x10^3/uL (140-400) Neutrophils (%) (Auto) 90 % (31-73) Lymphocytes (%) (Auto) 7 % (24-48) Monocytes (%) (Auto) 3 % (0-9) Eosinophils (%) (Auto) 0 % (0-3) Basophils (%) (Auto) 0 % (0-3) Neutrophils # (Auto) 7.8 x10^3uL (1.8-7.7) Lymphocytes # (Auto) 0.6 x10^3/uL (1.0-4.8) Monocytes # (Auto) 0.2 x10^3/uL (0.0-1.1) Eosinophils # (Auto) 0.0 x10^3/uL (0.0-0.7) Basophils # (Auto) 0.0 x10^3/uL (0.0-0.2) Sodium Level 144 mmol/L (136-145) Potassium Level 4.6 mmol/L (3.5-5.1) Chloride Level 108 mmol/L (98-107) Carbon Dioxide Level 27 mmol/L (21-32) Anion Gap 9 (6-14) Blood Urea Nitrogen 44 mg/dL (8-26) Creatinine 1.9 mg/dL (0.7-1.3) Estimated GFR (Cockcroft-Gault) 33.9 Glucose Level 156 mg/dL (70-99) Calcium Level 8.9 mg/dL (8.5-10.1) Test 09/10/18 07:21 Glucose (Fingerstick) 125 mg/dL (70-99) Objective: Assessment: COPD exacerbation acute bronchitis CAD CARMELINA on CKD rash does appear to be shingles Plan: Plan of Care Continue nebulizer treatment and steroids.Pt is improving on acyclovir prophylactically, may need renal dosing Augmentin cont supportive care AMBER CARRASQUILLO MD September 10, 2018 10:57
[2018-09-10 11:00] VITALS: BP 143/69
--- NOTE | 2018-09-10 11:33 | PDOC ---
Renal-Progress Notes Subjective Notes Notes NONE History of Present Illness Hx of present illness STABLE Vitals Vitals Vital Signs Date Time Temp Pulse Resp B/P (MAP) Pulse Ox O2 Delivery O2 Flow Rate FiO2 09/10/18 09:14 57 166/81 09/10/18 08:00 Room Air 09/10/18 07:41 98 09/10/18 07:05 98.2 18 98.2 Weight Weight [ ] I.O. Intake and Output Intake and Output 09/10/18 07:00 Intake Total 1400 ml Balance 1400 ml Intake Oral 1400 ml # Voids 13 # Bowel Movements 4 Labs Labs Laboratory Tests Test 09/09/18 11:31 09/09/18 17:19 09/09/18 20:58 09/10/18 05:30 Glucose (Fingerstick) 109 mg/dL (70-99) 145 mg/dL (70-99) 196 mg/dL (70-99) White Blood Count 8.6 x10^3/uL (4.0-11.0) Red Blood Count 3.13 x10^6/uL (4.30-5.70) Hemoglobin 9.7 g/dL (13.0-17.5) Hematocrit 29.0 % (39.0-53.0) Mean Corpuscular Volume 93 fL (79-100) Mean Corpuscular Hemoglobin 31 pg (25-35) Mean Corpuscular Hemoglobin Concent 34 g/dL (31-37) Red Cell Distribution Width 14.6 % (11.5-14.5) Platelet Count 151 x10^3/uL (140-400) Neutrophils (%) (Auto) 90 % (31-73) Lymphocytes (%) (Auto) 7 % (24-48) Monocytes (%) (Auto) 3 % (0-9) Eosinophils (%) (Auto) 0 % (0-3) Basophils (%) (Auto) 0 % (0-3) Neutrophils # (Auto) 7.8 x10^3uL (1.8-7.7) Lymphocytes # (Auto) 0.6 x10^3/uL (1.0-4.8) Monocytes # (Auto) 0.2 x10^3/uL (0.0-1.1) Eosinophils # (Auto) 0.0 x10^3/uL (0.0-0.7) Basophils # (Auto) 0.0 x10^3/uL (0.0-0.2) Sodium Level 144 mmol/L (136-145) Potassium Level 4.6 mmol/L (3.5-5.1) Chloride Level 108 mmol/L (98-107) Carbon Dioxide Level 27 mmol/L (21-32) Anion Gap 9 (6-14) Blood Urea Nitrogen 44 mg/dL (8-26) Creatinine 1.9 mg/dL (0.7-1.3) Estimated GFR (Cockcroft-Gault) 33.9 Glucose Level 156 mg/dL (70-99) Calcium Level 8.9 mg/dL (8.5-10.1) Test 09/10/18 07:21 Glucose (Fingerstick) 125 mg/dL (70-99) Physical Exam Musculoskeletal: low back pain, Other Assessment Assessment IMP CKD STAGE 3B WITH CR OF 2.1 NOW AND AT BASELINE 1.6-2.2-UA SHOWED A BLAND SEDIMENT BRONCHITIS WITH ACUTE EXACERBATION OF COPD SHINGLES PLAN VERY STABLE FROM A RENAL STANDPOINT WITH STABLE ELECTROLYTES AND ACID BASE BALANCE CONT TREATMENT FOR PULMONARY ISSUES CONT WITH DAILY LOOP DIURETICS CURRENT ACYCLOVIR DOSING IS ADEQUATE WILL FOLLOW MARA BORGES MD September 10, 2018 11:33
--- NOTE | 2018-09-10 12:34 | NUR ---
Wound Care: Consult to eval and treat for open area to buttocks. On assessment, pt has large bruise to L buttock, and small area above coccyx that is resurfaced. Appears to be a healed abrasion, from reported fall at home. Pt states he sometimes gets skin breakdown when he takes prednisone, but this area of discoloration was present prior to beginning this medication. Applied a foam dressing to area for protection, no open areas noted on head to toe inspection. Notified DAISHA Rodriguez
[2018-09-10 15:15] VITALS: BP 124/79
[2018-09-10 19:05] VITALS: BP 129/73
[2018-09-10] MEDS: SIMVASTATIN 20 MG TABLET PO SCH (20:10)
[2018-09-10] MEDS: MIRTAZAPINE 7.5 MG TABLET. PO SCH (20:10)
[2018-09-10] MEDS: MONTELUKAST SODIUM 10 MG TABLET. PO SCH (20:10)
[2018-09-10] MEDS: ACETAMINOPHEN 325 MG TABLET. PO PRN (20:50)
[2018-09-10 23:13] VITALS: BP 87/48
[2018-09-11 03:08] VITALS: BP 144/75
[2018-09-11 05:56] LABS: CALCIUM 8.5 mg/dL (8.5-10.1); CREATININE 2.5 mg/dL (0.7-1.3); GFR 24.7; POTASSIUM 4.5 mmol/L (3.5-5.1)
[2018-09-11 07:10] VITALS: BP 149/69
[2018-09-11] MEDS: BUDESONIDE 0.5 MG/2 ML NEBU. NEB SCH ×2 (07:14→19:56)
[2018-09-11] MEDS: IPRATRPIUM/ALBUTEROL 0.5/2.5MG 3 ML NEBU. NEB SCH ×4 (07:14→19:55)
[2018-09-11] MEDS: INSULIN LISPRO 300 UNITS/3 ML INSULN.PEN. SQ SCH ×3 (08:00→16:45)
[2018-09-11] MEDS: FUROSEMIDE 40 MG TABLET. PO SCH (09:00)
[2018-09-11] MEDS: DOXAZOSIN MESYLATE 4 MG TABLET. PO SCH (09:05)
[2018-09-11] MEDS: AMOXICILLIN/K CLAV 500/125MG TABLET. PO SCH ×2 (09:05→17:47)
[2018-09-11] MEDS: PANTOPRAZOLE 40 MG TABLET.DR. PO SCH (09:07)
[2018-09-11] MEDS: hydrALAZINE 25 MG TABLET PO SCH ×2 (09:07→20:19)
[2018-09-11] MEDS: CARVEDILOL 3.125 MG TABLET. PO SCH ×2 (09:07→17:47)
[2018-09-11] MEDS: ACYCLOVIR 200 MG CAPSULE. PO SCH ×2 (09:07→20:19)
[2018-09-11] MEDS: ASPIRIN CHEWABLE 81 MG TABLET. PO SCH (09:08)
[2018-09-11] MEDS: CETIRIZINE HCL 10 MG TABLET. PO SCH (09:08)
[2018-09-11] MEDS: MULTIVITAMIN with MINERAL TABLET. PO SCH (09:08)
[2018-09-11] MEDS: ASCORBIC ACID 500 MG TABLET PO SCH (09:08)
[2018-09-11] MEDS: CYANOCOBALAMIN (VITAMIN B-12) 1,000 MCG TABLET. PO SCH (09:08)
[2018-09-11] MEDS: CALCIUM CARB/VIT D3 500/200 TABLET. PO SCH (09:08)
[2018-09-11] MEDS: LACTOBACILLUS RHAMNOSUS GG 1 CAPSULE. PO SCH ×2 (09:08→20:19)
[2018-09-11] MEDS: FLUTICASONE 50MCG/NASAL SPRAY 16GM BOTTLE. NS SCH (09:09)
[2018-09-11] MEDS: DICLOFENAC SODIUM 1% TOPICAL GEL 100GM TUBE. TP SCH ×2 (09:09→20:20)
[2018-09-11] MEDS: methylPREDNISolone SOD SUCC PF 40 MG/ML VIAL. IV SCH (09:10)
[2018-09-11] MEDS: ENOXAPARIN 30 MG/0.3 ML SYRINGE. SQ SCH (09:10)
[2018-09-11] MEDS: SENNOSIDES 8.6 MG TABLET PO SCH (09:13)
--- NOTE | 2018-09-11 09:16 | PDOC ---
Infectious Disease Note Subjective: Subjective Patient feels better Wheezing has improved Shortness of breath and cough are improving Denies any Fever, chills, nausea, vomiting, diarrhea ROS: ROS Negative except for above. Vital Signs: Vital Signs Vital Signs Date Time Temp Pulse Resp B/P (MAP) Pulse Ox O2 Delivery O2 Flow Rate FiO2 09/11/18 09:07 60 149/69 09/11/18 07:15 97 Room Air 09/11/18 07:10 97.8 20 97.8 Physical Exam: PHYSICAL EXAM GENERAL: Alert, awake, pleasant male, lying in bed comfortably, in no acute distress. HEENT: Normocephalic, atraumatic, anicteric. No thrush. Oral mucosa moist. NECK: Supple. LUNGS: Decreased breath sounds at the bases. Few expiratory rhonchi. HEART: S1, S2, no murmurs. ABDOMEN: Soft, obese. Bowel sounds present. EXTREMITIES: No edema. CENTRAL NERVOUS SYSTEM: Alert and oriented x 3. Grossly nonfocal. PSYCHIATRIC: Cooperative, appropriate mood and affect. DERMATOLOGIC: Warm, dry. No generalized rash. Medications: Inpatient Meds: Current Medications Medications (Trade) Dose Ordered Sig/Juhi Start Time Stop Time Status Last Admin Dose Admin Acetaminophen (Tylenol) 650 mg PRN Q6HRS PRN 09/09/18 09:45 09/10/18 20:50 Acyclovir (Zovirax) 400 mg BID 09/10/18 21:00 09/11/18 09:07 Albuterol Sulfate (Ventolin Neb Soln) 2.5 mg RTQID 09/09/18 12:00 09/09/18 12:53 DC Albuterol/ Ipratropium (Duoneb) 3 ml RTQID 09/09/18 08:00 09/11/18 07:14 Amoxicillin/ Clavulanate Potassium (Augmentin 500/ 125mg) 1 tab BIDAC 09/10/18 16:30 09/11/18 09:05 Ascorbic Acid (Vitamin C) 1,000 mg DAILY 09/09/18 11:00 09/11/18 09:08 Aspirin (Children'S Aspirin) 324 mg DAILY 09/10/18 09:00 09/11/18 09:08 Budesonide (Pulmicort) 0.5 mg RTBID 09/09/18 20:00 09/11/18 07:14 Calcium/Vitamin D (Oscal D 500mg/ 200uts) 1 tab DAILY 09/09/18 11:00 09/11/18 09:08 Carvedilol (Coreg) 3.125 mg BIDWMEALS 09/09/18 12:00 09/11/18 09:07 Cetirizine HCl (ZyrTEC) 10 mg DAILY 09/09/18 11:00 09/11/18 09:08 Cyanocobalamin (Vitamin B-12) 1,000 mcg DAILY 09/09/18 11:00 09/11/18 09:08 Dextrose (Dextrose 50%-Water Syringe) 12.5 gm PRN Q15MIN PRN 09/09/18 09:45 Diclofenac Sodium (Voltaren) 1 naif BID 09/09/18 11:00 09/11/18 09:09 Doxazosin Mesylate (Cardura) 8 mg DAILY 09/09/18 11:00 09/11/18 09:05 Enoxaparin Sodium (Lovenox 30mg Syringe) 30 mg DAILY 09/09/18 16:00 09/11/18 09:10 Fentanyl Citrate (Fentanyl 2ml Vial) 50 mcg PRN Q1HR PRN 09/08/18 20:45 09/09/18 20:44 DC Ferrous Sulfate (Feosol) 325 mg DAILY08 09/09/18 12:00 09/10/18 11:28 DC Fluticasone Propionate (Flonase) 2 spray DAILY 09/09/18 10:00 09/11/18 09:09 Furosemide (Lasix) 40 mg DAILY 09/09/18 09:45 09/10/18 09:15 Heparin Sodium (Porcine) (Heparin Sodium) 5,000 unit Q12HR 09/09/18 11:00 09/09/18 11:32 DC Hydralazine HCl (Apresoline) 25 mg BID 09/09/18 11:00 09/11/18 09:07 Insulin Human Lispro (HumaLOG) 0-6 UNITS TIDWMEALS 09/09/18 12:00 09/10/18 12:28 Lactobacillus Rhamnosus (Culturelle) 1 cap BID 09/09/18 21:00 09/11/18 09:08 Methylprednisolone Sodium Succinate (SOLU-Medrol 40MG VIAL) 40 mg BID 09/10/18 21:00 09/11/18 09:10 Methylprednisolone Sodium Succinate (SOLU-Medrol 125MG VIAL) 125 mg 1X ONCE 09/08/18 17:30 09/08/18 17:31 DC 09/08/18 18:20 Mirtazapine (Remeron) 7.5 mg HS 09/09/18 21:00 09/10/18 20:10 Montelukast Sodium (Singulair) 10 mg QHS 09/09/18 21:00 09/10/18 20:10 Multivitamins (Thera M Plus) 1 tab DAILY 09/09/18 11:00 09/11/18 09:08 Nitroglycerin (Nitrostat) 0.4 mg PRN Q5MIN PRN 09/09/18 09:45 Non-Formulary Medication (Albuterol Sulfate (Albuterol Sulfate Conc Neb Soln)) 2.5 mg [id number] 09/09/18 13:00 UNV Non-Formulary Medication (Budesonide/ Formoterol Fumarate (Symbicort 160-4.5 Mcg Inhaler)) 2 inhaler BID 09/09/18 21:00 09/09/18 21:00 DC Non-Formulary Medication (Fluticasone Propionate (Flonase Allergy Relief)) 2 sprays DAILY 09/10/18 09:00 UNV Ondansetron HCl (Zofran) 4 mg PRN Q8HRS PRN 09/08/18 20:45 09/09/18 20:44 DC Pantoprazole Sodium (Protonix) 40 mg DAILYAC 09/09/18 11:30 09/11/18 09:07 Sennosides (Senna) 8.6 mg DAILY 09/09/18 10:45 09/11/18 09:13 Simvastatin (Zocor) 20 mg HS 09/09/18 21:00 09/10/18 20:10 Labs: Lab Laboratory Tests Test 09/10/18 11:08 09/10/18 16:53 09/10/18 19:29 09/11/18 04:00 Glucose (Fingerstick) 173 mg/dL (70-99) 115 mg/dL (70-99) 123 mg/dL (70-99) Sodium Level 140 mmol/L (136-145) Potassium Level 4.5 mmol/L (3.5-5.1) Chloride Level 103 mmol/L (98-107) Carbon Dioxide Level 29 mmol/L (21-32) Anion Gap 8 (6-14) Blood Urea Nitrogen 58 mg/dL (8-26) Creatinine 2.5 mg/dL (0.7-1.3) Estimated GFR (Cockcroft-Gault) 24.7 Glucose Level 114 mg/dL (70-99) Calcium Level 8.5 mg/dL (8.5-10.1) Test 09/11/18 07:16 Glucose (Fingerstick) 87 mg/dL (70-99) Objective: Assessment: COPD exacerbation improving acute bronchitis CAD CARMELINA on CKD rash does not appear to be shingles Plan: Plan of Care Continue nebulizer treatment and steroids.Pt is improving on acyclovir prophylactically, renal dosing Augmentin for total of 5 days cont supportive care AMBER CARRASQUILLO MD September 11, 2018 09:16
--- NOTE | 2018-09-11 10:35 | PDOC ---
IM PROGRESS NOTES- Subjective Subjective Has some cough and congestion,recurrent herpes with use of steroids. Objective Vitals Vital Signs Date Time Temp Pulse Resp B/P (MAP) Pulse Ox O2 Delivery O2 Flow Rate FiO2 09/11/18 09:07 60 149/69 09/11/18 07:15 97 Room Air 09/11/18 07:10 97.8 20 97.8 Input & Output Intake and Output 09/11/18 07:00 Intake Total 1560 ml Balance 1560 ml Intake Oral 1560 ml # Voids 1 # Bowel Movements 2 Physical Exam Physical Exam General appearance - alert,ill appearing, and in no distress and oriented to person, place, and time Mental Status - alert, anxious Head - normal Chest -eve. rhonchi,wheezing decreased Heart - S1 and S2 normal Abdomen - soft, nontender, nondistended, no masses or organomegaly Neurological - alert and oriented Musculoskeletal - no muscular tenderness noted Extremities - no pedal edema Skin - warm and dry Labs Laboratory Tests Test 09/09/18 11:31 09/09/18 17:19 09/09/18 20:58 09/10/18 05:30 Glucose (Fingerstick) 109 mg/dL (70-99) 145 mg/dL (70-99) 196 mg/dL (70-99) White Blood Count 8.6 x10^3/uL (4.0-11.0) Red Blood Count 3.13 x10^6/uL (4.30-5.70) Hemoglobin 9.7 g/dL (13.0-17.5) Hematocrit 29.0 % (39.0-53.0) Mean Corpuscular Volume 93 fL (79-100) Mean Corpuscular Hemoglobin 31 pg (25-35) Mean Corpuscular Hemoglobin Concent 34 g/dL (31-37) Red Cell Distribution Width 14.6 % (11.5-14.5) Platelet Count 151 x10^3/uL (140-400) Neutrophils (%) (Auto) 90 % (31-73) Lymphocytes (%) (Auto) 7 % (24-48) Monocytes (%) (Auto) 3 % (0-9) Eosinophils (%) (Auto) 0 % (0-3) Basophils (%) (Auto) 0 % (0-3) Neutrophils # (Auto) 7.8 x10^3uL (1.8-7.7) Lymphocytes # (Auto) 0.6 x10^3/uL (1.0-4.8) Monocytes # (Auto) 0.2 x10^3/uL (0.0-1.1) Eosinophils # (Auto) 0.0 x10^3/uL (0.0-0.7) Basophils # (Auto) 0.0 x10^3/uL (0.0-0.2) Sodium Level 144 mmol/L (136-145) Potassium Level 4.6 mmol/L (3.5-5.1) Chloride Level 108 mmol/L (98-107) Carbon Dioxide Level 27 mmol/L (21-32) Anion Gap 9 (6-14) Blood Urea Nitrogen 44 mg/dL (8-26) Creatinine 1.9 mg/dL (0.7-1.3) Estimated GFR (Cockcroft-Gault) 33.9 Glucose Level 156 mg/dL (70-99) Calcium Level 8.9 mg/dL (8.5-10.1) Test 09/10/18 07:21 09/10/18 11:08 09/10/18 16:53 09/10/18 19:29 Glucose (Fingerstick) 125 mg/dL (70-99) 173 mg/dL (70-99) 115 mg/dL (70-99) 123 mg/dL (70-99) Test 09/11/18 04:00 09/11/18 07:16 Sodium Level 140 mmol/L (136-145) Potassium Level 4.5 mmol/L (3.5-5.1) Chloride Level 103 mmol/L (98-107) Carbon Dioxide Level 29 mmol/L (21-32) Anion Gap 8 (6-14) Blood Urea Nitrogen 58 mg/dL (8-26) Creatinine 2.5 mg/dL (0.7-1.3) Estimated GFR (Cockcroft-Gault) 24.7 Glucose Level 114 mg/dL (70-99) Calcium Level 8.5 mg/dL (8.5-10.1) Glucose (Fingerstick) 87 mg/dL (70-99) Laboratory Tests Test 09/10/18 11:08 09/10/18 16:53 09/10/18 19:29 09/11/18 04:00 Glucose (Fingerstick) 173 mg/dL (70-99) 115 mg/dL (70-99) 123 mg/dL (70-99) Sodium Level 140 mmol/L (136-145) Potassium Level 4.5 mmol/L (3.5-5.1) Chloride Level 103 mmol/L (98-107) Carbon Dioxide Level 29 mmol/L (21-32) Anion Gap 8 (6-14) Blood Urea Nitrogen 58 mg/dL (8-26) Creatinine 2.5 mg/dL (0.7-1.3) Estimated GFR (Cockcroft-Gault) 24.7 Glucose Level 114 mg/dL (70-99) Calcium Level 8.5 mg/dL (8.5-10.1) Test 09/11/18 07:16 Glucose (Fingerstick) 87 mg/dL (70-99) Meds Current Medications Acyclovir (Zovirax) 400 mg BID PO Last administered on 09/11/18at 09:07; Start 09/10/18 at 21:00 Amoxicillin/ Clavulanate Potassium (Augmentin 500/ 125mg) 1 tab BIDAC PO Last administered on 09/11/18at 09:05; Start 09/10/18 at 16:30 Methylprednisolone Sodium Succinate (SOLU-Medrol 40MG VIAL) 40 mg BID IV Last administered on 09/11/18at 09:10; Start 09/10/18 at 21:00 Assessment Assessment 1. Acute bronchitis, not responding to outpatient treatment. 2. Acute exacerbation of chronic obstructive pulmonary disease, not responding to outpatient treatment. 3. Diabetes mellitus type 2, not controlled. 4. 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 5. Coronary artery disease. 6. History of deep venous thrombosis. 7. History of Clostridium difficile colitis. 8. Benign prostatic hypertrophy. 9. Anxiety. PLAN: Continue IV steroids. We will consult Dr. Darrius Dye because of recent treatment with multiple antibiotics and history of Clostridium difficile colitis. He is responding to IV steroids. Consult Dr. Ribeiro for pulmonary evaluation and management and Dr. Bustamante for nephrology evaluation and management. For details, please review the orders. 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 COPD exacerbation- improving.Decrease steroids. Plan Plan For more details regarding further plans, please refer to the orders. MARCELLUS FIERRO MD September 11, 2018 10:35
[2018-09-11 11:00] VITALS: BP 123/66
--- NOTE | 2018-09-11 11:34 | PDOC ---
PULMONARY PROGRESS NOTES Subjective FEELS BETTER Vitals Vital Signs Date Time Temp Pulse Resp B/P (MAP) Pulse Ox O2 Delivery O2 Flow Rate FiO2 09/11/18 11:23 95 Room Air 09/11/18 11:00 98.0 66 20 123/66 (85) 98.0 General: Alert, Oriented X4, No acute distress Lungs: Other (rhonchi right chest) Cardiovascular: S2 Abdomen: Soft, Non-tender Neuro Exam: Alert Extremities: No Edema Labs Laboratory Tests Test 09/09/18 17:19 09/09/18 20:58 09/10/18 05:30 09/10/18 07:21 Glucose (Fingerstick) 145 mg/dL (70-99) 196 mg/dL (70-99) 125 mg/dL (70-99) White Blood Count 8.6 x10^3/uL (4.0-11.0) Red Blood Count 3.13 x10^6/uL (4.30-5.70) Hemoglobin 9.7 g/dL (13.0-17.5) Hematocrit 29.0 % (39.0-53.0) Mean Corpuscular Volume 93 fL (79-100) Mean Corpuscular Hemoglobin 31 pg (25-35) Mean Corpuscular Hemoglobin Concent 34 g/dL (31-37) Red Cell Distribution Width 14.6 % (11.5-14.5) Platelet Count 151 x10^3/uL (140-400) Neutrophils (%) (Auto) 90 % (31-73) Lymphocytes (%) (Auto) 7 % (24-48) Monocytes (%) (Auto) 3 % (0-9) Eosinophils (%) (Auto) 0 % (0-3) Basophils (%) (Auto) 0 % (0-3) Neutrophils # (Auto) 7.8 x10^3uL (1.8-7.7) Lymphocytes # (Auto) 0.6 x10^3/uL (1.0-4.8) Monocytes # (Auto) 0.2 x10^3/uL (0.0-1.1) Eosinophils # (Auto) 0.0 x10^3/uL (0.0-0.7) Basophils # (Auto) 0.0 x10^3/uL (0.0-0.2) Sodium Level 144 mmol/L (136-145) Potassium Level 4.6 mmol/L (3.5-5.1) Chloride Level 108 mmol/L (98-107) Carbon Dioxide Level 27 mmol/L (21-32) Anion Gap 9 (6-14) Blood Urea Nitrogen 44 mg/dL (8-26) Creatinine 1.9 mg/dL (0.7-1.3) Estimated GFR (Cockcroft-Gault) 33.9 Glucose Level 156 mg/dL (70-99) Calcium Level 8.9 mg/dL (8.5-10.1) Test 09/10/18 11:08 09/10/18 16:53 09/10/18 19:29 09/11/18 04:00 Glucose (Fingerstick) 173 mg/dL (70-99) 115 mg/dL (70-99) 123 mg/dL (70-99) Sodium Level 140 mmol/L (136-145) Potassium Level 4.5 mmol/L (3.5-5.1) Chloride Level 103 mmol/L (98-107) Carbon Dioxide Level 29 mmol/L (21-32) Anion Gap 8 (6-14) Blood Urea Nitrogen 58 mg/dL (8-26) Creatinine 2.5 mg/dL (0.7-1.3) Estimated GFR (Cockcroft-Gault) 24.7 Glucose Level 114 mg/dL (70-99) Calcium Level 8.5 mg/dL (8.5-10.1) Test 09/11/18 07:16 09/11/18 10:58 Glucose (Fingerstick) 87 mg/dL (70-99) 130 mg/dL (70-99) Laboratory Tests Test 09/10/18 16:53 09/10/18 19:29 09/11/18 04:00 09/11/18 07:16 Glucose (Fingerstick) 115 mg/dL (70-99) 123 mg/dL (70-99) 87 mg/dL (70-99) Sodium Level 140 mmol/L (136-145) Potassium Level 4.5 mmol/L (3.5-5.1) Chloride Level 103 mmol/L (98-107) Carbon Dioxide Level 29 mmol/L (21-32) Anion Gap 8 (6-14) Blood Urea Nitrogen 58 mg/dL (8-26) Creatinine 2.5 mg/dL (0.7-1.3) Estimated GFR (Cockcroft-Gault) 24.7 Glucose Level 114 mg/dL (70-99) Calcium Level 8.5 mg/dL (8.5-10.1) Test 09/11/18 10:58 Glucose (Fingerstick) 130 mg/dL (70-99) Medications Active Scripts Medications Dose Route/Sig Max Daily Dose Days Date Category C-1000 (Ascorbic Acid) 1,000 Mg Tablet.er 1,000 Mg PO DAILY 09/09/18 Reported Senokot (Sennosides) 8.6 Mg Tablet 8.6 Mg PO DAILY 09/09/18 Reported Ferrous Sulfate 325 Mg Tablet 325 Mg PO DAILY 09/09/18 Reported Claritin (Loratadine) 10 Mg Tablet 10 Mg PO DAILY 09/09/18 Reported Cardura (Doxazosin Mesylate) 8 Mg Tablet 8 Mg PO DAILY 09/09/18 Reported Furosemide 40 Mg Tablet 40 Mg PO DAILY 09/09/18 Reported Nitrostat (Nitroglycerin) 0.4 Mg Tab.subl 0.4 Mg SL PRN Q5MIN PRN 09/09/18 Reported Flonase Allergy Relief (Fluticasone Propionate) 9.9 Ml [place].susp 2 Sprays NS DAILY 09/09/18 Reported Calcium 500-Vit D3 600 Tablet (Calcium Carbonate/Vitamin D3) 1 Each Tablet 1 Each PO DAILY 09/09/18 Reported Tylenol (Acetaminophen) 325 Mg Tablet 650 Mg PO PRN Q6HRS PRN 30 05/11/18 Rx Voltaren (Diclofenac Sodium) 100 Gm Gel..gram. 1 Roz TP BID 30 05/11/18 Rx Prednisone (Prednisone) 10 Mg Tablet 10 Mg PO DAILY 07/01/17 Rx Vitamin B-12 (Cyanocobalamin (Vitamin B-12)) 1,000 Mcg Tablet 1,000 Mcg PO DAILY 03/24/14 Rx Fluticasone Propionate Nasal [place] (Fluticasone Propionate) 16 Gm [place].susp 2 [place] NS DAILY 03/20/14 Reported Singulair Tablet (Montelukast Sodium) 10 Mg Tablet 10 Mg PO HS 03/20/14 Reported Centrum Silver Tablet (Multivits-Min/Fa/Lycopene/Lut) 1 Each Tablet 1 Each PO DAILY 03/20/14 Reported Carvedilol (Carvedilol) 3.125 Mg Tablet 1 Tab PO BID 03/20/14 Reported Hydralazine Hcl 25 Mg Tablet 1 Tab PO BID 03/20/14 Reported Aspirin 81 Mg Tab.chew 325 Mg PO DAILY 08/03/13 Reported Omeprazole 40 Mg Capsule.dr 40 Mg PO DAILY07 08/03/13 Reported Mirtazapine 7.5 Mg Tablet 7.5 Mg PO HS 08/03/13 Reported Simvastatin 20 Mg Tablet 20 Mg PO HS 08/03/13 Reported Symbicort 160-4.5 Mcg Inhaler (Budesonide/Formoterol Fumarate) 10.2 Gm Hfa.aer.ad 2 Inhaler IH BID 08/03/13 Reported Albuterol Sulfate Conc Neb Soln (Albuterol Sulfate) 2.5 Mg/0.5 Ml Vial.neb 2.5 Mg IH [id number] 08/03/13 Reported Acyclovir 400 Mg Tablet 400 Mg PO TID PRN 08/03/13 Reported Impression . 1. Dyspnea secondary to acute exacerbation of chronic obstructive pulmonary disease. 2. Acute bronchitis, could be viral. No definite consolidation seen on the chest x-ray. 3. Underlying obesity with a BMI of 31. Plan . 1. Continue with present DuoNebs. 2. Low dose steroids. 3. Lovenox for DVT prophylaxis. 4. P.r.n. oxygen. 5. DC plans per Dr Lopez. ok by me Discussed with RN. WESTON VÁSQUEZ MD September 11, 2018 11:34
--- NOTE | 2018-09-11 11:44 | PDOC ---
Renal-Progress Notes Subjective Notes Notes NOTHING NEW History of Present Illness Hx of present illness IMPROVING Vitals Vitals Vital Signs Date Time Temp Pulse Resp B/P (MAP) Pulse Ox O2 Delivery O2 Flow Rate FiO2 09/11/18 11:23 95 Room Air 09/11/18 11:00 98.0 66 20 123/66 (85) 98.0 Weight Weight [ ] I.O. Intake and Output Intake and Output 09/11/18 07:00 Intake Total 1560 ml Balance 1560 ml Intake Oral 1560 ml # Voids 1 # Bowel Movements 2 Labs Labs Laboratory Tests Test 09/10/18 16:53 09/10/18 19:29 09/11/18 04:00 09/11/18 07:16 Glucose (Fingerstick) 115 mg/dL (70-99) 123 mg/dL (70-99) 87 mg/dL (70-99) Sodium Level 140 mmol/L (136-145) Potassium Level 4.5 mmol/L (3.5-5.1) Chloride Level 103 mmol/L (98-107) Carbon Dioxide Level 29 mmol/L (21-32) Anion Gap 8 (6-14) Blood Urea Nitrogen 58 mg/dL (8-26) Creatinine 2.5 mg/dL (0.7-1.3) Estimated GFR (Cockcroft-Gault) 24.7 Glucose Level 114 mg/dL (70-99) Calcium Level 8.5 mg/dL (8.5-10.1) Test 09/11/18 10:58 Glucose (Fingerstick) 130 mg/dL (70-99) Physical Exam Musculoskeletal: low back pain, Other Assessment Assessment IMP CKD STAGE 3B WITH CR OF 2.4 NOW AND AT BASELINE 1.6-2.2-UA SHOWED A BLAND SEDIMENT BRONCHITIS WITH ACUTE EXACERBATION OF COPD SHINGLES PLAN VERY STABLE FROM A RENAL STANDPOINT WITH STABLE ELECTROLYTES AND ACID BASE BALANCE CONT TREATMENT FOR PULMONARY ISSUES CONT WITH DAILY LOOP DIURETICS CURRENT ACYCLOVIR DOSING IS ADEQUATE WILL FOLLOW MARA BORGES MD September 11, 2018 11:44
[2018-09-11 15:00] VITALS: BP 122/61
[2018-09-11 19:12] VITALS: BP 132/74
[2018-09-11] MEDS: SIMVASTATIN 20 MG TABLET PO SCH (20:19)
[2018-09-11] MEDS: MONTELUKAST SODIUM 10 MG TABLET. PO SCH (20:19)
[2018-09-11] MEDS: MIRTAZAPINE 7.5 MG TABLET. PO SCH (20:19)
[2018-09-11] MEDS: ACETAMINOPHEN 325 MG TABLET. PO PRN (20:19)
[2018-09-11 23:08] VITALS: BP 127/58
[2018-09-12 03:55] VITALS: BP 135/66
[2018-09-12 05:51] LABS: CALCIUM 8.5 mg/dL (8.5-10.1); CREATININE 2.3 mg/dL (0.7-1.3); GFR 27.2; POTASSIUM 4.3 mmol/L (3.5-5.1)
[2018-09-12 07:00] VITALS: BP 135/60
[2018-09-12] MEDS: INSULIN LISPRO 300 UNITS/3 ML INSULN.PEN. SQ SCH ×2 (08:00→12:00)
[2018-09-12] MEDS: FLUTICASONE 50MCG/NASAL SPRAY 16GM BOTTLE. NS SCH (08:40)
[2018-09-12] MEDS: DICLOFENAC SODIUM 1% TOPICAL GEL 100GM TUBE. TP SCH (08:40)
[2018-09-12] MEDS: ASPIRIN CHEWABLE 81 MG TABLET. PO SCH (08:41)
[2018-09-12] MEDS: LACTOBACILLUS RHAMNOSUS GG 1 CAPSULE. PO SCH (08:41)
[2018-09-12] MEDS: ACYCLOVIR 200 MG CAPSULE. PO SCH (08:41)
[2018-09-12] MEDS: ENOXAPARIN 30 MG/0.3 ML SYRINGE. SQ SCH (08:41)
[2018-09-12] MEDS: CYANOCOBALAMIN (VITAMIN B-12) 1,000 MCG TABLET. PO SCH (08:41)
[2018-09-12] MEDS: ASCORBIC ACID 500 MG TABLET PO SCH (08:41)
[2018-09-12] MEDS: CETIRIZINE HCL 10 MG TABLET. PO SCH (08:42)
[2018-09-12] MEDS: SENNOSIDES 8.6 MG TABLET PO SCH (08:42)
[2018-09-12] MEDS: DOXAZOSIN MESYLATE 4 MG TABLET. PO SCH (08:42)
[2018-09-12] MEDS: PANTOPRAZOLE 40 MG TABLET.DR. PO SCH (08:42)
[2018-09-12] MEDS: hydrALAZINE 25 MG TABLET PO SCH (08:43)
[2018-09-12] MEDS: AMOXICILLIN/K CLAV 500/125MG TABLET. PO SCH (08:43)
[2018-09-12] MEDS: CALCIUM CARB/VIT D3 500/200 TABLET. PO SCH (08:43)
[2018-09-12] MEDS: MULTIVITAMIN with MINERAL TABLET. PO SCH (08:43)
[2018-09-12] MEDS: CARVEDILOL 3.125 MG TABLET. PO SCH (08:44)
[2018-09-12] MEDS: IPRATRPIUM/ALBUTEROL 0.5/2.5MG 3 ML NEBU. NEB SCH ×2 (09:20→11:49)
[2018-09-12] MEDS: BUDESONIDE 0.5 MG/2 ML NEBU. NEB SCH (09:20)
[2018-09-12] MEDS ORDERED: methylPREDNISolone SOD SUCC PF 40 MG/ML VIAL. IV SCH (10:00)
[2018-09-12] MEDS ORDERED: AMOX1TAB58 PO (10:00)
--- NOTE | 2018-09-12 10:45 | DISCH ---
DISCHARGE INSTRUCTIONS Condition on Discharge Condition on Discharge: Stable Activity After Discharge Activity Instructions for Disc: Activity as tolerated Diet after Discharge Diet after Discharge: No Added Salt, No Added Sugar Diet Texture: Regular Liquid Texture: Thin Liquid Swallowing Supervision: None needed Wound Incision Care Wound/Incision Care: No wound care needed Contacting the DRMaria T after DC Call your doctor for: Concerns you may have Follow-Up Follow up with: Dr.Pratip Fierro in 5 days Treatment/Equipment after DC Adaptive Equipment Issued: None Discharge Respiratory Equipmen: Nebulizer MARCELLUS FIERRO MD Sep 12, 2018 10:45
--- NOTE | 2018-09-12 10:51 | PDOC3 ---
IM DISCHARGE SUMMARY Date of Admission Date of Admission Date of Admission: September 08, 2018 at 20:08 Date of Discharge Date of Discharge September Primary Diagnosis Primary Diagnosis 1. Acute bronchitis, not responding to outpatient treatment. 2. Acute exacerbation of chronic obstructive pulmonary disease, not responding to outpatient treatment. 3. Diabetes mellitus type 2, not controlled. 4. 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 5. Coronary artery disease. 6. History of deep venous thrombosis. 7. History of Clostridium difficile colitis. 8. Benign prostatic hypertrophy. 9. Anxiety. Consults Consults Darrius Dye MD Labs Labs Laboratory Tests Test 09/09/18 11:31 09/09/18 17:19 09/09/18 20:58 09/10/18 05:30 Glucose (Fingerstick) 109 mg/dL (70-99) 145 mg/dL (70-99) 196 mg/dL (70-99) White Blood Count 8.6 x10^3/uL (4.0-11.0) Red Blood Count 3.13 x10^6/uL (4.30-5.70) Hemoglobin 9.7 g/dL (13.0-17.5) Hematocrit 29.0 % (39.0-53.0) Mean Corpuscular Volume 93 fL (79-100) Mean Corpuscular Hemoglobin 31 pg (25-35) Mean Corpuscular Hemoglobin Concent 34 g/dL (31-37) Red Cell Distribution Width 14.6 % (11.5-14.5) Platelet Count 151 x10^3/uL (140-400) Neutrophils (%) (Auto) 90 % (31-73) Lymphocytes (%) (Auto) 7 % (24-48) Monocytes (%) (Auto) 3 % (0-9) Eosinophils (%) (Auto) 0 % (0-3) Basophils (%) (Auto) 0 % (0-3) Neutrophils # (Auto) 7.8 x10^3uL (1.8-7.7) Lymphocytes # (Auto) 0.6 x10^3/uL (1.0-4.8) Monocytes # (Auto) 0.2 x10^3/uL (0.0-1.1) Eosinophils # (Auto) 0.0 x10^3/uL (0.0-0.7) Basophils # (Auto) 0.0 x10^3/uL (0.0-0.2) Sodium Level 144 mmol/L (136-145) Potassium Level 4.6 mmol/L (3.5-5.1) Chloride Level 108 mmol/L (98-107) Carbon Dioxide Level 27 mmol/L (21-32) Anion Gap 9 (6-14) Blood Urea Nitrogen 44 mg/dL (8-26) Creatinine 1.9 mg/dL (0.7-1.3) Estimated GFR (Cockcroft-Gault) 33.9 Glucose Level 156 mg/dL (70-99) Calcium Level 8.9 mg/dL (8.5-10.1) Test 09/10/18 07:21 09/10/18 11:08 09/10/18 16:53 09/10/18 19:29 Glucose (Fingerstick) 125 mg/dL (70-99) 173 mg/dL (70-99) 115 mg/dL (70-99) 123 mg/dL (70-99) Test 09/11/18 04:00 09/11/18 07:16 09/11/18 10:58 09/11/18 16:41 Sodium Level 140 mmol/L (136-145) Potassium Level 4.5 mmol/L (3.5-5.1) Chloride Level 103 mmol/L (98-107) Carbon Dioxide Level 29 mmol/L (21-32) Anion Gap 8 (6-14) Blood Urea Nitrogen 58 mg/dL (8-26) Creatinine 2.5 mg/dL (0.7-1.3) Estimated GFR (Cockcroft-Gault) 24.7 Glucose Level 114 mg/dL (70-99) Calcium Level 8.5 mg/dL (8.5-10.1) Glucose (Fingerstick) 87 mg/dL (70-99) 130 mg/dL (70-99) 133 mg/dL (70-99) Test 09/11/18 19:21 09/12/18 03:20 09/12/18 07:49 Glucose (Fingerstick) 189 mg/dL (70-99) 92 mg/dL (70-99) Sodium Level 144 mmol/L (136-145) Potassium Level 4.3 mmol/L (3.5-5.1) Chloride Level 106 mmol/L (98-107) Carbon Dioxide Level 26 mmol/L (21-32) Anion Gap 12 (6-14) Blood Urea Nitrogen 61 mg/dL (8-26) Creatinine 2.3 mg/dL (0.7-1.3) Estimated GFR (Cockcroft-Gault) 27.2 Glucose Level 88 mg/dL (70-99) Calcium Level 8.5 mg/dL (8.5-10.1) Brief hospital course Brief hospital course This 83-year-old male with a history of severe COPD, was treated in my office by our nurse practitioner with doxycycline and Cipro and oral prednisone with a tapering dose without any relief. The patient's condition continued to get worse, and when he came again to the office yesterday, he was extremely short of breath, and because of the failure of the outpatient treatment, the patient has been admitted for further evaluation and management. The patient was initially sent to the Emergency Room and a chest x-ray did not show any acute infiltrates. Because of the severe exacerbation of chronic obstructive pulmonary disease and recurrent bronchitis, the patient was admitted for further evaluation and management. For more details regarding the past history, family history, social history, surgical history and other details, please refer to History and Physical. Continue IV steroids. We will consult Dr. Darrius Dye because of recent treatment with multiple antibiotics and history of Clostridium difficile colitis. He is responding to IV steroids. Consult Dr. Ribeiro for pulmonary evaluation and management and Dr. Bustamante for nephrology evaluation and management. 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 BUN is 61 likely due to use of steroids. Clinically improving. Resume Lasix. It was held for 1 day. COPD exacerbation- improving.IV steroids are being tapered and patient will be discharged on prednisone 10 mg 4 tablets daily for 3 days, 3 tablets daily for 3 days and then 2 tablets daily for 3 days and then 1 tablet daily for 3 days. Patient was initially treated with IV Rocephin and it was changed to Augmentin 500/125 one tablet twice a day with food for total 5 days. A 2-Days prescription has been given to the patient. Condition at the time of discharge is much better but his long-term as well as short-term prognosis is poor due to his multiple medical problems. He is advised to follow a low-sodium low sugar diet. Patient does not want home health services. Medications Medications reviewed and reconciled for discharge. Allergy Allergies Coded Allergies Type Severity Reaction Last Updated Verified Sulfa (Sulfonamide Antibiotics) Allergy Intermediate 09/08/18 Yes clopidogrel Allergy Intermediate 09/08/18 Yes valsartan Allergy Intermediate 09/08/18 Yes warfarin Allergy Intermediate 09/08/18 Yes Follow up in 5 days. DISPOSITION: Home Comments Discharge Management - 35 minutes. For other details please refer to discharge instructions MARCELLUS FIERRO MD Sep 12, 2018 10:51
[2018-09-12 11:13] VITALS: BP 112/58
--- NOTE | 2018-09-12 13:47 | NUR ---
pt was discharged home with self-care. called in scripts to [facility] (prednisone 10mg, augmentin 500/125 for 2 days). was wheeled down to the Emergency Exit. Kermit Dumont RN
== END 2018-09-12 14:01 | disposition home or self-care (01) | DRG 191 ==
LOC: ER 16:37 → 5 NORTH 20:08 → 6 SOUTH 23:57
PROVIDERS: ADMIT Internal Medicine; ATTEND Internal Medicine
DX: J44.0 Chronic obstructive pulmonary disease with (acute) lower respiratory infection (principal); N17.9 Acute kidney failure, unspecified; I13.0 Hypertensive heart and chronic kidney disease with heart failure and stage 1 through stage 4 chronic kidney disease, or unspecified chronic kidney disease; N18.4 Chronic kidney disease, stage 4 (severe); J20.9 Acute bronchitis, unspecified; J44.1 Chronic obstructive pulmonary disease with (acute) exacerbation; K21.9 Gastro-esophageal reflux disease without esophagitis; N18.3 Chronic kidney disease, stage 3 (moderate); Z68.31 Body mass index [BMI] 31.0-31.9, adult; I50.9 Heart failure, unspecified; B02.9 Zoster without complications; M19.90 Unspecified osteoarthritis, unspecified site; Z88.2 Allergy status to sulfonamides; Z88.8 Allergy status to other drugs, medicaments and biological substances; D63.8 Anemia in other chronic diseases classified elsewhere; E11.22 Type 2 diabetes mellitus with diabetic chronic kidney disease; E11.65 Type 2 diabetes mellitus with hyperglycemia; E66.9 Obesity, unspecified; F32.9 Major depressive disorder, single episode, unspecified; E78.00 Pure hypercholesterolemia, unspecified; E78.5 Hyperlipidemia, unspecified; F41.9 Anxiety disorder, unspecified; H35.30 Unspecified macular degeneration; I25.10 Atherosclerotic heart disease of native coronary artery without angina pectoris; I25.2 Old myocardial infarction; I48.91 Unspecified atrial fibrillation; N40.0 Benign prostatic hyperplasia without lower urinary tract symptoms; Z82.49 Family history of ischemic heart disease and other diseases of the circulatory system; Z86.19 Personal history of other infectious and parasitic diseases; Z86.718 Personal history of other venous thrombosis and embolism; Z87.891 Personal history of nicotine dependence; Z90.49 Acquired absence of other specified parts of digestive tract; Z95.5 Presence of coronary angioplasty implant and graft
CPT/HCPCS: 36415; 71045; 80048; 80053; 81001; 82962; 83880; 84484; 85007; 85025; 93005; 94640; 94760; 96374; J1644; J1650; J1815; J2920; J2930; J7620; J7626; 99285-25

== ENCOUNTER 2019-01-16 10:48 | Emergency (ER) | payer BC ==
[~2019-01-16] VITALS: Ht 162.6 cm; Wt 81.6 kg
[~2019-01-16 10:48] MED LIST changes: +AMOX1TAB58 PO; +ASCO100037 PO; +CALC-584 PO; +CYAN-25 PO; -CYAN10005 PO; +DOXA8TAB2 PO; +DOXY-96 PO; -DOXY100T9 PO; +FERR325T14 PO; +FLUT9.9S NS; +LORA10TA68 PO; +MONT10TA49 PO; -MONT10TA6 PO; +NITR0.4T24 SL; +OMEP40CA45 PO; -OMEP40CA5 PO; +SENN8.6T99 PO; +SIMV20TA18 PO; -SIMV20TA3 PO; -TIZA4TAB PO; +TIZA4TAB2 PO
--- NOTE | 2019-01-16 11:10 | PHYS DOC ---
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 Patient complaining of weakness since last night and one episode of fall because of generalized weakness without loss of consciousness or any head injury. Patient complaining of generalized weakness without focal neuro deficit, fever and chills, headache, nausea and vomiting, chest pain, shortness of breath, symptom. Patient complaining of low back pain for the last 3 days. Patient lives at home by himself and had bed bugs at arrival to the ER. Review of Systems Review of Systems Constitutional: Denies fever or chills [] Eyes: Denies change in visual acuity, redness, or eye pain [] HENT: Denies nasal congestion or sore throat [] Respiratory: Denies cough or shortness of breath [] Cardiovascular: No additional information not addressed in HPI [] GI: Denies abdominal pain, nausea, vomiting, bloody stools or diarrhea [] : Denies dysuria or hematuria [] Musculoskeletal: Reports back pain Integument: Denies rash or skin lesions [] Neurologic: Denies headache, focal weakness or sensory changes [] Endocrine: Denies polyuria or polydipsia [] All other systems were reviewed and found to be within normal limits, except as documented in this note. Allergies Allergies Allergies Coded Allergies Type Severity Reaction Last Updated Verified Sulfa (Sulfonamide Antibiotics) Allergy Intermediate 09/08/18 Yes clopidogrel Allergy Intermediate 09/08/18 Yes valsartan Allergy Intermediate 09/08/18 Yes warfarin Allergy Intermediate 09/08/18 Yes Physical Exam Physical Exam Constitutional: Well developed, well nourished, mild distress, non-toxic appearance. [] HENT: Normocephalic, atraumatic. Eyes: PERRLA, EOMI, conjunctiva normal, no discharge. [] Neck: Normal range of motion, no tenderness, supple, no stridor. [] Cardiovascular:Heart rate regular rhythm, no murmur [] Lungs & Thorax: Bilateral breath sounds clear to auscultation [] Abdomen: Bowel sounds normal, soft, no tenderness, no masses, no pulsatile masses. [] Skin: Warm, dry, no erythema, no rash, small abrasion of left forearm. [] Back: No tenderness, no CVA tenderness. [] Extremities: No tenderness, no cyanosis, no clubbing, ROM intact, no edema. [] Neurologic: Alert and oriented X 3, no focal deficits noted. [] Psychologic: Affect normal, judgement normal, mood normal. [] Current Patient Data Vital Signs Vital Signs Date Time Temp Pulse Resp B/P (MAP) Pulse Ox O2 Delivery O2 Flow Rate FiO2 01/16/19 14:15 68 18 98 01/16/19 11:16 98.3 156/72 (100) Room Air 98.3 Lab Values Laboratory Tests Test 01/16/19 11:04 01/16/19 11:27 01/16/19 11:47 White Blood Count 5.3 x10^3/uL (4.0-11.0) Red Blood Count 2.99 x10^6/uL (4.30-5.70) L Hemoglobin 8.6 g/dL (13.0-17.5) L Hematocrit 25.8 % (39.0-53.0) L Mean Corpuscular Volume 86 fL (79-100) Mean Corpuscular Hemoglobin 29 pg (25-35) Mean Corpuscular Hemoglobin Concent 33 g/dL (31-37) Red Cell Distribution Width 16.3 % (11.5-14.5) H Platelet Count 168 x10^3/uL (140-400) Neutrophils (%) (Auto) 52 % (31-73) Lymphocytes (%) (Auto) 23 % (24-48) L Monocytes (%) (Auto) 8 % (0-9) Eosinophils (%) (Auto) 16 % (0-3) H Basophils (%) (Auto) 1 % (0-3) Neutrophils # (Auto) 2.8 x10^3/uL (1.8-7.7) Lymphocytes # (Auto) 1.2 x10^3/uL (1.0-4.8) Monocytes # (Auto) 0.4 x10^3/uL (0.0-1.1) Eosinophils # (Auto) 0.9 x10^3/uL (0.0-0.7) H Basophils # (Auto) 0.0 x10^3/uL (0.0-0.2) Prothrombin Time 12.7 SEC (11.7-14.0) Prothrombin Time INR 1.0 (0.8-1.1) Sodium Level 149 mmol/L (136-145) H Potassium Level 3.7 mmol/L (3.5-5.1) Chloride Level 111 mmol/L (98-107) H Carbon Dioxide Level 28 mmol/L (21-32) Anion Gap 10 (6-14) Blood Urea Nitrogen 25 mg/dL (8-26) Creatinine 1.8 mg/dL (0.7-1.3) H Estimated GFR (Cockcroft-Gault) 36.0 BUN/Creatinine Ratio 14 (6-20) Glucose Level 88 mg/dL (70-99) Calcium Level 8.5 mg/dL (8.5-10.1) Magnesium Level 2.0 mg/dL (1.8-2.4) Total Bilirubin 0.3 mg/dL (0.2-1.0) Aspartate Amino Transferase (AST) 18 U/L (15-37) Alanine Aminotransferase (ALT) 16 U/L (16-63) Alkaline Phosphatase 56 U/L (46-116) Creatine Kinase 84 U/L (39-308) Troponin I Quantitative < 0.017 ng/mL (0.000-0.055) DP-Egn-O-Type Natriuretic Peptide 4363 pg/mL (0-449) H Total Protein 6.0 g/dL (6.4-8.2) L Albumin 3.0 g/dL (3.4-5.0) L Albumin/Globulin Ratio 1.0 (1.0-1.7) Urine Collection Type Unknown Urine Color Yellow Urine Clarity Clear Urine pH 5.5 Urine Specific [place] 1.020 Urine Protein Negative mg/dL (NEG-TRACE) Urine Glucose (UA) Negative mg/dL (NEG) Urine Ketones (Stick) Negative mg/dL (NEG) Urine Blood Negative (NEG) Urine Nitrite Negative (NEG) Urine Bilirubin Negative (NEG) Urine Urobilinogen Dipstick 1.0 mg/dL (0.2 mg/dL) Urine Leukocyte Esterase Negative (NEG) Urine RBC 0 /HPF (0-2) Urine WBC 0 /HPF (0-4) Urine Squamous Epithelial Cells Few /LPF Urine Bacteria 0 /HPF (0-FEW) Urine Mucus Mod /LPF Lactic Acid Level 0.9 mmol/L (0.4-2.0) Laboratory Tests 01/16/19 11:04 Laboratory Tests 01/16/19 11:04 EKG EKG EKG interpreted by me. EKG at 1100 showed normal sinus rhythm at rate of 65, PVCs, Q waves in anteroseptal leads, unchanged EKG from 09/08/[address]-T elevation.[] Radiology/Procedures Radiology/Procedures [][facility] [address] [place] [address] IMAGING REPORT Signed PATIENT: BASHIR ARROYO ACCOUNT: [id number] : 1935 LOCATION: ER AGE: 83 SEX: M EXAM STATUS: REG ER ORD. PHYSICIAN: YUKI RUIZ MD REASON: low back pain PROCEDURE: CT LUMBAR SPINE WO CONTRAST CT scan of the lumbar spine without contrast 01/16/2019 CLINICAL HISTORY: Low back pain. Frequent falls. TECHNIQUE: Unenhanced, contiguous, 0.625 mm axial sections were obtained through the lumbar spine. 3 mm reconstructed sagittal, axial and coronal images were obtained. One or more of the following individualized dose reduction techniques were utilized for this study: 1. Automated exposure control. 2. Adjustment of the mA and/or kV according to patient size. 3. Use of iterative reconstruction technique. FINDINGS: Sagittal and coronal reconstructed images demonstrate diffuse osteopenia of the visualized bony structures. Mild S-shaped curvature of the thoracolumbar spine is seen. Degenerative changes consisting of varying degrees of disc space narrowing, vertebral endplate sclerosis and minimal to mild anterior and posterior vertebral body osteophyte formation are seen throughout the lumbar disc spaces. Bilateral spondylolysis is seen at L5. No significant spondylolisthesis is seen. Vacuum disc phenomenon are seen at the L2-3, L3-4 and L4-5 discs. Atherosclerotic atherosclerotic calcification of the abdominal aorta and its branches is noted. An IVC filter is noted in place. An acute compression fracture is seen involving the inferior aspect of the L3 vertebral body. This vertebral body has lost approximately 20 percent of its normal height. No retropulsion of bone fragments into the central spinal canal is seen. No additional compression fracture of the lumbar vertebrae is seen. The changes of degenerative disc disease are seen throughout the lumbar disc spaces. These consist of mild to moderate generalized disc bulges, degenerative changes involving the facet joints and mild to moderate ligamentum flavum hypertrophy. A right paracentral focal disc herniation is seen at L2-3 which extrudes superiorly to the mid L2 level. This measures 4 mm in AP diameter. These findings when combined result in mild to moderate right greater than left central spinal canal stenosis at L2-3, moderate central spinal canal stenosis at L3-4 and mild to moderate central spinal canal stenosis at L4-5. The patient appears to be post right hemilaminotomy at L4-5. Moderate right neural foraminal stenosis is seen at L2-3 moderate bilateral neural foraminal stenosis is seen at L3-4 moderate left neural foraminal stenosis is seen at L4-5. IMPRESSION: 1. Acute compression fracture is seen involving the L3 vertebral body. No retropulsion of bone fragments into the central spinal canal is seen. 2. The changes of degenerative disc disease are seen throughout the lumbar spine. These findings result in multilevel central spinal canal and neural foraminal stenosis of varying severity as discussed above. Electronically signed by: Jackson Gray MD (01/16/2019 1:58 PM) [facility] DICTATED and SIGNED BY: JACKSON GRAY MD DATE: 01/16/19 1358 Course & Med Decision Making Course & Med Decision Making Pertinent Labs and Imaging studies reviewed. (See chart for details) Evaluation of patient in ER showed 83-year-old male patient who lives at home by himself brought in by EMS because of generalized weakness. Patient has chronic CHF and anemia and renal failure and CT of lumbar spine showed acute L3 compression fracture. Patient wanted to go home. Patient doesn't answer Informed about his decision and needs to have somebody with or admission to alf home or assisted living home. I've spoken with the patient and/or caregivers. I've explained the patient's condition, diagnosis and treatment plan based on information available to me at this time. I've answered the patient's and/or caregivers questions and addressed any concerns. The patient and/or caregivers have a good understanding the patient's diagnosis, condition and treatment plan as can be expected at this point. Vital signs have been stabilized. The patient's condition is stable for discharge from the emergency department. The patient will pursue further outpatient evaluation with her primary care provider or other designated consulting physician as outlined in the discharge instructions. Patient and/or caregivers are agreeable to this plan of care and follow-up instructions have been explained in detail. The patient and/or caregivers have received these instructions in written format and expressed understanding of these discharge instructions. The patient and her caregivers are aware that if any significant change in condition or worsening of symptoms should prompt him to immediately return to this of the closest emergency depa rtment. If an emergent department is not readily available I would encourage him to call 911. Dragon Disclaimer Dragon Disclaimer This electronic medical record was generated, in whole or in part, using a voice recognition dictation system. Departure Departure Impression: Primary Impression: Generalized weakness Additional Impressions: Chronic CHF Chronic anemia Low back pain Renal insufficiency Compression fx, lumbar spine Disposition: HOME, SELF-CARE (@1350) Condition: STABLE Referrals: MARCELLUS FIERRO MD (PCP) Patient Instructions: Anemia, FAQs, Back, Compression Fracture, Heart Failure, Weakness Additional Instructions: Continue current medication Follow-up with your primary care physician in 2-3 days Return to ER if not getting better Problem Qualifiers Additional Impressions: Chronic CHF Heart failure type: unspecified Qualified Codes: I50.9 - Heart failure, unspecified Low back pain Chronicity: unspecified Back pain laterality: left Sciatica presence: unspecified whether sciatica present Qualified Codes: M54.5 - Low back pain Compression fx, lumbar spine Encounter type: subsequent encounter Lumbar vertebra fracture level: L3 Fracture healing: with delayed healing Qualified Codes: S32.030G - Wedge compression fracture of third lumbar vertebra, subsequent encounter for fracture with delayed healing YUKI RUIZ MD Jan 16, 2019 11:10
[2019-01-16 11:14] LABS: BASO % 1 % (0-3); EOS # 0.9 x10^3/uL (0.0-0.7); EOS % 16 % (0-3); HEMATOCRIT 25.8 % (39.0-53.0); HEMOGLOBIN 8.6 g/dL (13.0-17.5); LYMPH # 1.2 x10^3/uL (1.0-4.8); LYMPH % 23 % (24-48); MEAN CORPUSCULAR HEMOGLOBIN 29 pg (25-35); MEAN CORPUSCULAR HGB CONC 33 g/dL (31-37); MEAN CORPUSCULAR VOLUME 86 fL (79-100); MONO # 0.4 x10^3/uL (0.0-1.1); MONO % 8 % (0-9); NEUT # 2.8 x10^3/uL (1.8-7.7); NEUT % 52 % (31-73); PLATELET COUNT 168 x10^3/uL (140-400); RED BLOOD COUNT 2.99 x10^6/uL (4.30-5.70); RED CELL DISTRIBUTION WIDTH 16.3 % (11.5-14.5); WHITE BLOOD COUNT 5.3 x10^3/uL (4.0-11.0)
[2019-01-16 11:24] LABS: PROTHROMBIN TIME PATIENT 12.7 SEC (11.7-14.0)
[2019-01-16 11:30] LABS: CALCIUM 8.5 mg/dL (8.5-10.1); CREATININE 1.8 mg/dL (0.7-1.3); POTASSIUM 3.7 mmol/L (3.5-5.1)
[2019-01-16 11:36] LABS: TOTAL BILIRUBIN 0.3 mg/dL (0.2-1.0)
--- NOTE | 2019-01-16 11:38 | RAD ---
PROCEDURE: PORTABLE CHEST 1V CLINICAL INDICATION: Generalized weakness. COMPARISON: 09/08/2018 FINDINGS: No pneumothorax identified. Cardiac and mediastinal contours unremarkable. No pulmonary consolidation or acute airspace disease. No acute osseous abnormalities identified. IMPRESSION: No pulmonary consolidation or acute airspace disease. Electronically signed by: Bora Lopez DO (01/16/2019 11:35 AM) [facility]
[2019-01-16 11:39] LABS: BILIRUBIN,URINE NEGATIVE (NEG); CLARITY,URINE CLEAR; COLOR,URINE YELLOW; NITRITE,URINE NEGATIVE (NEG); PH,URINE 5.5; PROTEIN,URINE NEGATIVE (NEG-TRACE)
[2019-01-16 11:41] LABS: BACTERIA,URINE 0 /HPF (0-FEW); RBC,URINE 0 /HPF (0-2); SQUAMOUS EPITHELIAL CELL,UR FEW /LPF; WBC,URINE 0 /HPF (0-4)
--- NOTE | 2019-01-16 11:50 | RAD ---
CT HEAD WO CONTRAST History: Generalized weakness and frequent falls. Comparison: May 06, 2018. Technique: Noncontrast CT imaging was performed of the head. Exposure: One or more of the following individualized dose reduction techniques were utilized for this examination: 1. Automated exposure control 2. Adjustment of the mA and/or kV according to patient size 3. Use of iterative reconstruction technique. Findings: No intracranial hemorrhage. No mass effect. No hydrocephalus. Mild brain parenchymal volume loss, within normal range for age. Moderate prominent lateral ventricles, likely related to central brain parenchymal volume loss, unchanged. Imaged orbits are unremarkable. Complete opacification of the small left maxillary sinus, unchanged. Increased sclerosis of the left maxillary sinus wall. Chronic nasal bone deformity, unchanged. Small left mastoid fluid, unchanged. Old left zygomatic arch fracture, unchanged. Impression: 1. No acute intracranial abnormality. 2. Chronic left maxillary sinus disease, unchanged. Electronically signed by: Fabrizio Church DO (01/16/2019 11:47 AM) [facility]
--- NOTE | 2019-01-16 14:00 | RAD ---
CT scan of the lumbar spine without contrast 01/16/2019 CLINICAL HISTORY: Low back pain. Frequent falls. TECHNIQUE: Unenhanced, contiguous, 0.625 mm axial sections were obtained through the lumbar spine. 3 mm reconstructed sagittal, axial and coronal images were obtained. One or more of the following individualized dose reduction techniques were utilized for this study: 1. Automated exposure control. 2. Adjustment of the mA and/or kV according to patient size. 3. Use of iterative reconstruction technique. FINDINGS: Sagittal and coronal reconstructed images demonstrate diffuse osteopenia of the visualized bony structures. Mild S-shaped curvature of the thoracolumbar spine is seen. Degenerative changes consisting of varying degrees of disc space narrowing, vertebral endplate sclerosis and minimal to mild anterior and posterior vertebral body osteophyte formation are seen throughout the lumbar disc spaces. Bilateral spondylolysis is seen at L5. No significant spondylolisthesis is seen. Vacuum disc phenomenon are seen at the L2-3, L3-4 and L4-5 discs. Atherosclerotic atherosclerotic calcification of the abdominal aorta and its branches is noted. An IVC filter is noted in place. An acute compression fracture is seen involving the inferior aspect of the L3 vertebral body. This vertebral body has lost approximately 20 percent of its normal height. No retropulsion of bone fragments into the central spinal canal is seen. No additional compression fracture of the lumbar vertebrae is seen. The changes of degenerative disc disease are seen throughout the lumbar disc spaces. These consist of mild to moderate generalized disc bulges, degenerative changes involving the facet joints and mild to moderate ligamentum flavum hypertrophy. A right paracentral focal disc herniation is seen at L2-3 which extrudes superiorly to the mid L2 level. This measures 4 mm in AP diameter. These findings when combined result in mild to moderate right greater than left central spinal canal stenosis at L2-3, moderate central spinal canal stenosis at L3-4 and mild to moderate central spinal canal stenosis at L4-5. The patient appears to be post right hemilaminotomy at L4-5. Moderate right neural foraminal stenosis is seen at L2-3 moderate bilateral neural foraminal stenosis is seen at L3-4 moderate left neural foraminal stenosis is seen at L4-5. IMPRESSION: 1. Acute compression fracture is seen involving the L3 vertebral body. No retropulsion of bone fragments into the central spinal canal is seen. 2. The changes of degenerative disc disease are seen throughout the lumbar spine. These findings result in multilevel central spinal canal and neural foraminal stenosis of varying severity as discussed above. Electronically signed by: Jackson Gray MD (01/16/2019 1:58 PM) [facility]
[2019-01-16 14:15] VITALS: BP 153/72
--- NOTE | 2019-01-17 11:11 | EKG ---
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
[2019-01-17] MEDS ORDERED: OMEP40CA45 PO (16:00)
[2019-01-17] MEDS ORDERED: DOXA8TAB59 PO (16:01)
[2019-01-17] MEDS ORDERED: ASPI81TA50 PO (16:06)
[2019-01-17] MEDS ORDERED: FLUT16SP NS (16:07)
--- NOTE | 2019-01-18 14:11 | CONS ---
DATE OF CONSULTATION: LOCATION: The patient's room 584. REQUESTING PHYSICIAN: Dr. Blevins. REASON FOR CONSULTATION: Bacteremia. HISTORY OF PRESENT ILLNESS: The patient is an 83-year-old gentleman who presented to [facility] approximately the or so of January complaining of weakness and apparently had occurred since the night before he had an episode of a fall. Upon presentation, underwent a CT scan of his lumbar spine, was found to have an acute compression fracture in the L3 vertebral area. He was subsequently discharged from the Emergency Room, but on 01/17, blood cultures returned positive and he was called back and admitted. Cultures from the initially were positive for 1/2, but now 2/2 positive bottles for gram-positive cocci suggestive of Staph. He has been placed on vancomycin. Currently, the patient is sitting upright in bed. Denies any gross fevers, chills or sweats. Has no sinus issues. States he is feeling better. He has no shortness of air, has occasional cough, nonproductive. No nausea, vomiting, or diarrhea. No dysuria, frequency, or urgency. States he does get the shakes occasionally and has been ongoing for two months. PAST MEDICAL HISTORY: Positive for congestive heart failure, COPD, DVT, dyslipidemia, hypertension, myocardial infarction, anemia, above-mentioned compression fracture, chronic kidney disease with episodes of acute kidney injury, history of acute bronchitis, coronary artery disease, history of atrial fibrillation. PAST SURGICAL HISTORY: Positive for appendectomy, abdominal surgery, cardiac stent, IVC filter placement. REVIEW OF SYSTEMS: Otherwise negative. ALLERGIES: LISTED SULFA, does not remember the reaction, but states it almost killed him. CLOPIDOGREL, VALSARTAN, COUMADIN ARE ALSO LISTED. SOCIAL HISTORY: He has a history of smoking for 25 years prior to quitting. FAMILY HISTORY: Noncontributory. CURRENT MEDICATIONS: Include vancomycin per pharmacy, Zocor, Protonix, Singulair, Remeron, hydralazine, fluconazole, Cardura, Rocephin, Pulmicort, Ecotrin, ascorbic acid. PHYSICAL EXAMINATION: VITAL SIGNS: He has been afebrile since presentation, temperature 98.3, pulse 63, blood pressure 126/50, satting 96% on room air. CONSTITUTIONAL: He is sitting upright in bed. He is cooperative. He has got hearing aids. He is in no acute distress. He is pleasant. HEENT: He has normal conjunctivae. Oral cavity, pharynx is clear. NECK: Supple, no JVD. LUNGS: Decreased in the bases. HEART: S1, S2. ABDOMEN: Soft, no guarding or rebound. EXTREMITIES: Without clubbing, cyanosis, no gross edema. SKIN: Without generalized rash. NEUROLOGIC: He is nonfocal, moves all extremities. Affect is pleasant. LABORATORY DATA: White count 5.2, hemoglobin 8.1, platelets 189, neutrophils 55, creatinine 1.8 down from 1.9. Urinalysis without bacteria. Chest x-ray from the questionable bronchitis. IMPRESSION: 1. Bacteremia 05/16 bottles 01/16. 2. Compression fracture L3. 3. Chronic kidney disease. 4. SULFA ALLERGY. Again, does not remember the reaction, but almost killed him. RECOMMENDATIONS: We will continue the vancomycin, discontinue Rocephin. He has no cough and asymptomatic. We will follow up labs and cultures. Thank you for allowing me to participate in the patient's care. Should you have any questions, please do not hesitate to contact me. JUANCARLOS STOCKTON MD DR: STANTON/lory JOB#: [id number] / [id number]
== END 2019-01-16 14:39 | disposition home or self-care (01) ==
LOC: ER 10:48
DX: S32.030G Wedge compression fracture of third lumbar vertebra, subsequent encounter for fracture with delayed healing (principal); R53.1 Weakness; D64.9 Anemia, unspecified; N28.9 Disorder of kidney and ureter, unspecified; I11.0 Hypertensive heart disease with heart failure; I50.9 Heart failure, unspecified; I25.2 Old myocardial infarction; J44.9 Chronic obstructive pulmonary disease, unspecified; E78.00 Pure hypercholesterolemia, unspecified; Z90.89 Acquired absence of other organs; Z86.718 Personal history of other venous thrombosis and embolism; Z88.2 Allergy status to sulfonamides; Z88.8 Allergy status to other drugs, medicaments and biological substances; X58.XXXD Exposure to other specified factors, subsequent encounter
CPT/HCPCS: 36415; 70450; 71045; 72131; 80053; 81001; 82550; 83605; 83735; 83880; 84484; 85025; 85610; 87040; 87077; 87205; 93005; 99285-25

== ENCOUNTER 2019-01-17 11:54 | Inpatient (IN) | payer BC ==
[~2019-01-17] VITALS: Ht 165.1 cm; Wt 76.8 kg
[~2019-01-17 11:54] MED LIST changes: -SIMV20TA18 PO; +SIMV20TA3 PO
--- NOTE | 2019-01-17 12:37 | PHYS DOC ---
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 Patient was seen in this emergency room yesterday because of generalized weakness and fall and had normal lactic acid white count and pending blood culture that reported today with positive cocci in clusters both bottles. Patient was informed about this result and still complaining of generalized weakness and was advised to come back to the emergency room for hospitalization. Patient refuses hospitalization yesterday even he had an acute impression fracture. Patient denies fever and chest pain and focal neurodeficit. Review of Systems Review of Systems Constitutional: Denies fever or chills [] Eyes: Denies change in visual acuity, redness, or eye pain [] HENT: Denies nasal congestion or sore throat [] Respiratory: Denies cough or shortness of breath [] Cardiovascular: No additional information not addressed in HPI [] GI: Denies abdominal pain, nausea, vomiting, bloody stools or diarrhea [] : Denies dysuria or hematuria [] Musculoskeletal: Reports back pain Integument: Denies rash or skin lesions [] Neurologic: Denies headache, focal weakness or sensory changes [] Endocrine: Denies polyuria or polydipsia [] All other systems were reviewed and found to be within normal limits, except as documented in this note. Allergies Allergies Allergies Coded Allergies Type Severity Reaction Last Updated Verified Sulfa (Sulfonamide Antibiotics) Allergy Intermediate 09/08/18 Yes clopidogrel Allergy Intermediate 09/08/18 Yes valsartan Allergy Intermediate 09/08/18 Yes warfarin Allergy Intermediate 09/08/18 Yes Physical Exam Physical Exam Constitutional: Well developed, well nourished, mild distress, non-toxic appearance. [] HENT: Normocephalic, atraumatic. Eyes: PERRLA, EOMI, conjunctiva normal, no discharge. [] Neck: Normal range of motion, no tenderness, supple, no stridor. [] Cardiovascular: Regular rhythm, no murmur [] Lungs & Thorax: Bilateral breath sounds clear to auscultation [] Abdomen: Bowel sounds normal, soft, no tenderness, no masses, no pulsatile masses. [] Skin: Warm, dry, no erythema, no rash. [] Back: Mild lower lumbar tenderness, no CVA tenderness. [] Extremities: No tenderness, no cyanosis, no clubbing, ROM intact, no edema. [] Neurologic: Alert and oriented X 3, no focal deficits noted. [] Psychologic: Affect normal, judgement normal, mood normal. [] Current Patient Data Vital Signs EKG EKG [] Radiology/Procedures Radiology/Procedures [][facility] [address] [place] [address] IMAGING REPORT Signed PATIENT: BASHIR ARROYO ACCOUNT: [id number] : 1935 LOCATION: ER AGE: 83 SEX: M EXAM STATUS: REG ER ORD. PHYSICIAN: YUKI RUIZ MD REASON: weakness. positive blood culture PROCEDURE: PORTABLE CHEST 1V Indication:Weakness. Positive blood culture. TECHNIQUE:Portable AP chest X-ray COMPARISON: 01/16/2019 FINDINGS: Heart is normal in size. Aortic calcifications suggesting systemic arterial hypertension. Prominent bilateral bronchial markings are seen. No focal consolidation. No pneumothorax or effusion. Visualized bony thorax within normal limits. IMPRESSION: Findings suggests bronchitis. Electronically signed by: Bora Lopez DO (01/17/2019 12:52 PM) [id number] DICTATED and SIGNED BY: BORA LOPEZ DO DATE: 01/17/19 1252 Course & Med Decision Making Course & Med Decision Making Pertinent Labs and Imaging studies reviewed. (See chart for details) Evaluation of patient in ER showed 83-year-old male patient with positive blood culture from yesterday ER visit umping of generalized weakness without elevation of lactic acid or leukocytosis. Patient refuses admission and previous admission and active for hospitalization this time.Patient requiring admission for further evaluation and treatment. Discussed with Dr. Blevins who is in agreem ent with admission. Discussed findings and plan with patient and family, who acknowledge understanding and agreement. Dragon Disclaimer Dragon Disclaimer This electronic medical record was generated, in whole or in part, using a voice recognition dictation system. Departure Departure Impression: Primary Impression: Bacteremia Additional Impressions: Generalized weakness Compression fx, lumbar spine Chronic anemia Chronic CHF Disposition: 09 ADMITTED INPATIENT (at 1236) Admitting Physician: Eleazar Blevins (accepted admission at 1235) Condition: STABLE Referrals: MARCELLUS LOPEZ MD (PCP) Date and Time of Reassessment Date: Jan 17, 2019 Time: 13:00 Fluid Challenge Is the fluid challenge complet: No IBW Target Volume Used: No BMI > 30: No Vital Signs Temperature Source: Oral Respirations Respiratory Effort: Normal Cardiovascular Pulse Rhythm: Regular Heart: Nml rate, reg. rhythm Capillary Refil Capillary Refill: Rt Hand < 3 seconds Peripheral Pulse Pulse Location: Radial Pulse Strength: Weak (1+) Pulse Assessment Method: NIBP Integumentary Skin Moisture: Dry Problem Qualifiers Additional Impressions: Compression fx, lumbar spine Encounter type: sequela Lumbar vertebra fracture level: L3 Qualified Codes: S32.030S - Wedge compression fracture of third lumbar vertebra, sequela Chronic CHF Heart failure type: unspecified Qualified Codes: I50.9 - Heart failure, unspecified YUKI RUIZ MD Jan 17, 2019 12:37
[2019-01-17] MEDS ORDERED: cefTRIAXone IV Push 1 GM VIAL. IVP ONE (12:45)
[2019-01-17] MEDS ORDERED: VANCOMYCIN 1GM IVPB FOR OMNI 250 ML IV ONE (12:45)
[2019-01-17 12:53] LABS: BASO # 0.1 x10^3/uL (0.0-0.2); BASO % 1 % (0-3); EOS # 0.7 x10^3/uL (0.0-0.7); EOS % 12 % (0-3); HEMATOCRIT 27.6 % (39.0-53.0); HEMOGLOBIN 9.1 g/dL (13.0-17.5); LYMPH # 0.8 x10^3/uL (1.0-4.8); LYMPH % 14 % (24-48); MEAN CORPUSCULAR HEMOGLOBIN 28 pg (25-35); MEAN CORPUSCULAR HGB CONC 33 g/dL (31-37); MEAN CORPUSCULAR VOLUME 86 fL (79-100); MONO # 0.3 x10^3/uL (0.0-1.1); MONO % 5 % (0-9); NEUT # 4.1 x10^3/uL (1.8-7.7); NEUT % 69 % (31-73); PLATELET COUNT 190 x10^3/uL (140-400); RED BLOOD COUNT 3.21 x10^6/uL (4.30-5.70); RED CELL DISTRIBUTION WIDTH 16.2 % (11.5-14.5); WHITE BLOOD COUNT 5.9 x10^3/uL (4.0-11.0)
--- NOTE | 2019-01-17 12:55 | RAD ---
Indication:Weakness. Positive blood culture. TECHNIQUE:Portable AP chest X-ray COMPARISON: 01/16/2019 FINDINGS: Heart is normal in size. Aortic calcifications suggesting systemic arterial hypertension. Prominent bilateral bronchial markings are seen. No focal consolidation. No pneumothorax or effusion. Visualized bony thorax within normal limits. IMPRESSION: Findings suggests bronchitis. Electronically signed by: Bora Lopez DO (01/17/2019 12:52 PM) [facility]
[2019-01-17 13:06] LABS: CREATININE 1.9 mg/dL (0.7-1.3); GFR 33.9; POTASSIUM 3.8 mmol/L (3.5-5.1)
[2019-01-17 13:08] LABS: PROTHROMBIN TIME PATIENT 13.6 SEC (11.7-14.0)
[2019-01-17 13:12] LABS: ALBUMIN 3.3 g/dL (3.4-5.0); ALBUMIN/GLOBULIN RATIO 0.9 (1.0-1.7); TOTAL BILIRUBIN 0.3 mg/dL (0.2-1.0)
[2019-01-17 14:56] VITALS: BP 118/76
[2019-01-17 15:06] LABS: BILIRUBIN,URINE NEGATIVE (NEG); CLARITY,URINE CLEAR; COLOR,URINE YELLOW; NITRITE,URINE NEGATIVE (NEG); PH,URINE 5.5; PROTEIN,URINE NEGATIVE (NEG-TRACE)
[2019-01-17 15:12] LABS: RBC,URINE RARE /HPF (0-2); WBC,URINE RARE /HPF (0-4)
[2019-01-17 15:13] LABS: BACTERIA,URINE 0 /HPF (0-FEW)
[2019-01-17] MEDS ORDERED: OMEP40CA45 PO (16:00)
[2019-01-17] MEDS ORDERED: DOXA8TAB59 PO (16:01)
[2019-01-17] MEDS ORDERED: ASPI81TA50 PO (16:06)
[2019-01-17] MEDS ORDERED: FLUT16SP NS (16:07)
[2019-01-17] MEDS ORDERED: ACETAMINOPHEN 325 MG TABLET. PO PRN (17:30)
[2019-01-17] MEDS ORDERED: NITROGLYCERIN SUBLINGUAL 0.4 MG BOTTLE OF 25. SL PRN (17:30)
[2019-01-17] MEDS ORDERED: VANCOMYCIN 750 MG in IV NORMAL SALINE 250ML 250 ML IV ONE (18:00)
[2019-01-17] MEDS ORDERED: CARVEDILOL 3.125 MG TABLET. PO SCH (18:00)
--- NOTE | 2019-01-17 18:00 | NUR ---
Patient received to room 584 at 1500. Patient alert and oriented times four and ambulated to [facility] with SBA with walker. Patient settled in bed after his briefs were removed and bagged per protocol for bed bugs. Patient had his home medications with him and ER had bagged and tied closed, all patient medications were reviewe with patient, replace in bag and tied closed and his daughter was notified by phone to [employer] and take home. Patient also verb. understanding bagged medications tied closed to remain bagged and tied closed and daughter to take home. Patient verb. understanding orientation to unit and routines and received patient information packet, code for release of information and fall protocol. Fall contract witnessed, patient verb. understanding up assist only and bed alarm set. See admission, assessment, nursing communication and orders. Dr. Castrejon returned call regards consult. Patient side rails up times two, call light at hand,
[2019-01-17] MEDS: ALBUTEROL SULFATE 2.5 MG/3 ML NEBU. NEB SCH (18:31)
[2019-01-17] MEDS: BUDESONIDE 0.5 MG/2 ML NEBU. NEB SCH (18:31)
[2019-01-17 19:00] VITALS: BP 109/59
[2019-01-17] MEDS ORDERED: NON FORMULARY ITEM (Albuterol Sulfate (Albuterol Sulfate Conc Neb Soln) 2.5 MG) IH SCH (21:00)
[2019-01-17] MEDS ORDERED: BUDESONIDE IH SCH (21:00)
[2019-01-17] MEDS ORDERED: FORMOTEROL FUMARATE IH SCH (21:00)
[2019-01-17] MEDS: DICLOFENAC SODIUM 1% TOPICAL GEL 100GM TUBE. TP SCH (21:00)
[2019-01-17] MEDS ORDERED: [UNRECOGNIZED DRUG - OTHER] IH SCH (21:00)
[2019-01-17] MEDS: MIRTAZAPINE 7.5 MG TABLET. PO SCH (21:44)
[2019-01-17] MEDS: CARVEDILOL 3.125 MG TABLET. PO SCH (21:44)
[2019-01-17] MEDS: MONTELUKAST SODIUM 10 MG TABLET. PO SCH (21:44)
[2019-01-17] MEDS: DOXAZOSIN MESYLATE 4 MG TABLET. PO SCH (21:48)
[2019-01-17] MEDS: hydrALAZINE 25 MG TABLET PO SCH (21:49)
[2019-01-17 23:00] VITALS: BP 125/63
[2019-01-18 04:46] LABS: BASO % 1 % (0-3); EOS # 0.7 x10^3/uL (0.0-0.7); EOS % 14 % (0-3); HEMATOCRIT 24.2 % (39.0-53.0); HEMOGLOBIN 8.1 g/dL (13.0-17.5); LYMPH # 1.2 x10^3/uL (1.0-4.8); LYMPH % 23 % (24-48); MEAN CORPUSCULAR HEMOGLOBIN 29 pg (25-35); MEAN CORPUSCULAR HGB CONC 33 g/dL (31-37); MEAN CORPUSCULAR VOLUME 85 fL (79-100); MONO # 0.4 x10^3/uL (0.0-1.1); MONO % 8 % (0-9); NEUT # 2.9 x10^3/uL (1.8-7.7); NEUT % 55 % (31-73); PLATELET COUNT 189 x10^3/uL (140-400); RED BLOOD COUNT 2.84 x10^6/uL (4.30-5.70); RED CELL DISTRIBUTION WIDTH 16.6 % (11.5-14.5); WHITE BLOOD COUNT 5.2 x10^3/uL (4.0-11.0)
[2019-01-18 05:20] LABS: CALCIUM 8.3 mg/dL (8.5-10.1); CREATININE 1.8 mg/dL (0.7-1.3); POTASSIUM 3.9 mmol/L (3.5-5.1)
[2019-01-18] MEDS: BUDESONIDE 0.5 MG/2 ML NEBU. NEB SCH ×2 (05:49→20:00)
[2019-01-18] MEDS: ALBUTEROL SULFATE 2.5 MG/3 ML NEBU. NEB SCH ×4 (05:50→20:00)
[2019-01-18 07:00] VITALS: BP 126/58
[2019-01-18] MEDS: PANTOPRAZOLE 40 MG TABLET.DR. PO SCH (08:46)
[2019-01-18] MEDS: CALCIUM CARB/VIT D3 500/200 TABLET. PO SCH (08:47)
[2019-01-18] MEDS: FLUTICASONE 50MCG/NASAL SPRAY 16GM BOTTLE. NS SCH (08:48)
[2019-01-18] MEDS: CYANOCOBALAMIN (VITAMIN B-12) 1,000 MCG TABLET. PO SCH (08:48)
[2019-01-18] MEDS: ASPIRIN ENTERIC COATED 81 MG TABLET.DR. PO SCH (08:49)
[2019-01-18] MEDS: MULTIVITAMIN with MINERAL TABLET. PO SCH (08:49)
[2019-01-18] MEDS: hydrALAZINE 25 MG TABLET PO SCH ×2 (08:49→21:17)
[2019-01-18] MEDS: CETIRIZINE HCL 10 MG TABLET. PO SCH (08:49)
[2019-01-18] MEDS: CARVEDILOL 3.125 MG TABLET. PO SCH ×2 (08:50→17:36)
[2019-01-18] MEDS: ASCORBIC ACID 500 MG TABLET PO SCH (08:50)
[2019-01-18] MEDS: DICLOFENAC SODIUM 1% TOPICAL GEL 100GM TUBE. TP SCH ×2 (08:51→21:17)
[2019-01-18] MEDS ORDERED: FLUTICASONE 50MCG/NASAL SPRAY 16GM BOTTLE. NS SCH (09:00)
--- NOTE | 2019-01-18 09:24 | NUR ---
Pt is 83 y/o male admitted for bacteremia. Pt with recent fall resulting in compression fx. Would benefit from PT/OT assessment to ensure safe functional mobility and adls and to determine safe discharge disposition. Please write OT/PT eval and treat orders if you agree. Addendum: 01/18/19 at 0969 by DEJAH CHAMBERS PT Amended: Links added.
--- NOTE | 2019-01-18 09:50 | PDOC ---
Provider Note Provider Note Patient seen. History and Physical dictated. See dictation#[id number] MARCELLUS FIERRO MD Jan 18, 2019 09:50
--- NOTE | 2019-01-18 10:40 | PDOC ---
Infectious Disease Note Vital Sign Vital Signs Vital Signs Date Time Temp Pulse Resp B/P (MAP) Pulse Ox O2 Delivery O2 Flow Rate FiO2 01/18/19 08:50 63 126/58 01/18/19 07:00 98.3 17 96 Room Air 98.3 Labs Lab Laboratory Tests Test 01/17/19 12:30 01/17/19 15:00 01/18/19 04:25 White Blood Count 5.9 x10^3/uL (4.0-11.0) 5.2 x10^3/uL (4.0-11.0) Red Blood Count 3.21 x10^6/uL (4.30-5.70) 2.84 x10^6/uL (4.30-5.70) Hemoglobin 9.1 g/dL (13.0-17.5) 8.1 g/dL (13.0-17.5) Hematocrit 27.6 % (39.0-53.0) 24.2 % (39.0-53.0) Mean Corpuscular Volume 86 fL (79-100) 85 fL (79-100) Mean Corpuscular Hemoglobin 28 pg (25-35) 29 pg (25-35) Mean Corpuscular Hemoglobin Concent 33 g/dL (31-37) 33 g/dL (31-37) Red Cell Distribution Width 16.2 % (11.5-14.5) 16.6 % (11.5-14.5) Platelet Count 190 x10^3/uL (140-400) 189 x10^3/uL (140-400) Neutrophils (%) (Auto) 69 % (31-73) 55 % (31-73) Lymphocytes (%) (Auto) 14 % (24-48) 23 % (24-48) Monocytes (%) (Auto) 5 % (0-9) 8 % (0-9) Eosinophils (%) (Auto) 12 % (0-3) 14 % (0-3) Basophils (%) (Auto) 1 % (0-3) 1 % (0-3) Neutrophils # (Auto) 4.1 x10^3/uL (1.8-7.7) 2.9 x10^3/uL (1.8-7.7) Lymphocytes # (Auto) 0.8 x10^3/uL (1.0-4.8) 1.2 x10^3/uL (1.0-4.8) Monocytes # (Auto) 0.3 x10^3/uL (0.0-1.1) 0.4 x10^3/uL (0.0-1.1) Eosinophils # (Auto) 0.7 x10^3/uL (0.0-0.7) 0.7 x10^3/uL (0.0-0.7) Basophils # (Auto) 0.1 x10^3/uL (0.0-0.2) 0.0 x10^3/uL (0.0-0.2) Prothrombin Time 13.6 SEC (11.7-14.0) Prothromb Time International Ratio 1.1 (0.8-1.1) Sodium Level 145 mmol/L (136-145) 147 mmol/L (136-145) Potassium Level 3.8 mmol/L (3.5-5.1) 3.9 mmol/L (3.5-5.1) Chloride Level 107 mmol/L (98-107) 111 mmol/L (98-107) Carbon Dioxide Level 27 mmol/L (21-32) 27 mmol/L (21-32) Anion Gap 11 (6-14) 9 (6-14) Blood Urea Nitrogen 25 mg/dL (8-26) 24 mg/dL (8-26) Creatinine 1.9 mg/dL (0.7-1.3) 1.8 mg/dL (0.7-1.3) Estimated GFR (Cockcroft-Gault) 33.9 36.0 BUN/Creatinine Ratio 13 (6-20) Glucose Level 98 mg/dL (70-99) 94 mg/dL (70-99) Lactic Acid Level 0.8 mmol/L (0.4-2.0) Calcium Level 9.0 mg/dL (8.5-10.1) 8.3 mg/dL (8.5-10.1) Total Bilirubin 0.3 mg/dL (0.2-1.0) Aspartate Amino Transf (AST/SGOT) 20 U/L (15-37) Alanine Aminotransferase (ALT/SGPT) 16 U/L (16-63) Alkaline Phosphatase 61 U/L (46-116) Total Protein 7.0 g/dL (6.4-8.2) Albumin 3.3 g/dL (3.4-5.0) Albumin/Globulin Ratio 0.9 (1.0-1.7) Urine Collection Type Unknown Urine Color Yellow Urine Clarity Clear Urine pH 5.5 Urine Specific Rufe 1.015 Urine Protein Negative mg/dL (NEG-TRACE) Urine Glucose (UA) Negative mg/dL (NEG) Urine Ketones (Stick) Negative mg/dL (NEG) Urine Blood Negative (NEG) Urine Nitrite Negative (NEG) Urine Bilirubin Negative (NEG) Urine Urobilinogen Dipstick 1.0 mg/dL (0.2 mg/dL) Urine Leukocyte Esterase Negative (NEG) Urine RBC Rare /HPF (0-2) Urine WBC Rare /HPF (0-4) Urine Bacteria 0 /HPF (0-FEW) Urine Mucus Slight /LPF Objective Assessment Bacteremia 2/2 bottles 10 Compression fracture L3 CKD Sulfa allergy - does not remember reaction but almost killed him Plan Plan of Care Cont Vanc D/c Rocephin F/u labs and cults Thank you # [id number] JUANCARLOS STOCKTON MD Jan 18, 2019 10:40
[2019-01-18 11:00] VITALS: BP 164/58
--- NOTE | 2019-01-18 11:29 | HP ---
ADMIT DATE: HISTORY OF PRESENT ILLNESS: This 83-year-old male was seen in the Emergency Room day before yesterday because of weakness and fall. He had a normal lactic acid level, normal white count and a pending blood culture that showed gram-positive cocci in clusters in both bottles. Because of that, the patient was called back to the Emergency Room and has been admitted for further evaluation and management. The patient denies any fever, chills, cold, cough, congestion, dyspnea recently. He has occasional cough from his COPD, but responds well to breathing treatment. Sputum is clear. The patient 2 days ago was also noted to have acute L3 vertebral compression fracture, but the patient states that 2 days ago, he had back pain, but now he has no back pain and he is feeling better. He denies any nausea, vomiting, diarrhea. The patient has been on steroids for quite extended periods for exacerbation of COPD, but currently he is off prednisone at this time. He was on prednisone 10 mg recently. Other systems reviewed and are negative. REVIEW OF SYSTEMS: As noted in the history of present illness. The patient denies any dysuria, abdominal pain or diarrhea. PAST MEDICAL HISTORY: The patient is known to have severe COPD with episodes of recurrent bronchitis and admissions. He has degenerative joint disease involving multiple joints, benign prostatic hypertrophy, benign hypertension, chronic kidney disease stage 3, anxiety, hyperlipidemia, coronary artery disease. He had a stent placed in 2011. His creatinine ranges from 1.6 to 2. History of Clostridium difficile colitis in 2012. History of old myocardial infarction, DVT in 2011, small bowel obstruction in 2011. CAD, 2 stents placed at in 2011. Carotid artery disease, GERD, hemorrhoids, hypertension, lumbar spinal stenosis of L4-L5, macular degeneration of left eye dry, osteoarthritis of multiple sites and history of hypotension. PAST SURGICAL HISTORY: Includes stents placed in 2012, 2 stents placed L5-S1 decompression with microdiskectomy and right L4-L5 decompression, partial colectomy, appendectomy, tonsillectomy and hemorrhoidectomy. ALLERGIES: THE PATIENT IS ALLERGIC TO CLARITHROMYCIN THAT CAUSES RASH, CLOPIDOGREL CAUSES RASH. CODEINE, CYCLOBENZAPRINE CAUSES ITCHING. LISINOPRIL AND PRASUGREL CAUSES NAUSEA, MODERATE TO SEVERE. SULFA, ANTIBIOTICS, TIZANIDINE, ITCHING, MILD TO MODERATE. FAMILY HISTORY: Father had coronary artery disease. Mother had coronary artery disease. SOCIAL HISTORY: The patient is an ex-cigarette smoker. No history of alcoholism or drug abuse. PHYSICAL EXAMINATION: VITAL SIGNS: Temperature 98.3, pulse 63 per minute, respirations 17 per minute, blood pressure 126/58 mmHg. GENERAL: The patient is alert, oriented x 3 and not in acute distress. EYES: Pupils reacting to light. Conjunctivae pale. Sclerae muddy. HEENT: The patient is wearing hearing aids. Throat is clear. NECK: Supple. JVP normal. No thyromegaly. Trachea midline. LUNGS: Decreased breath sounds at bases. No wheezing. No rales. CARDIOVASCULAR: S1, S2 regular. ABDOMEN: Soft, nontender, no guarding, no rigidity. Bowel sounds present. EXTREMITIES: No edema. Lumbar spine, no tenderness. CENTRAL NERVOUS SYSTEM: Alert and oriented, anxious, has tremors that are chronic. LABORATORY FINDINGS: WBC count is 5.2, day before it was 5.9; hemoglobin is 8.1, polys 55, lymphocytes 23. INR 1.1. Urinalysis is negative. Sodium is 147 today, potassium 3.9, BUN 24, creatinine 1.8. Day before, sodium was 145, albumin 3.3, AST 20, ALT 16, calcium 8.3. IMPRESSION: 1. Gram-positive bacteremia in 2/2 bottles. The patient is asymptomatic. 2. Weakness. 3. Fall. 4. L3 compression fracture, acute on the CT scan of spine; however, the patient states he has no symptoms now. 5. Chronic obstructive pulmonary disease. 6. Dizziness. 7. Chronic kidney disease stage 3. 8. Coronary artery disease. 9. Hypertension. 10. 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 11. Anxiety. PLAN: Consult Dr. Melton for Infectious Disease evaluation and management. Continue IV vancomycin for now, but consider changing to Zyvox if the patient has renal insufficiency. Consult Dr. Bass for rehab evaluation and management because of the falls and weakness and recent likely compression fracture of the L3. The patient has lumbar spinal stenosis that is chronic, along with degenerative changes. For details, please refer to the orders. The patient's back pain is better today. MARCELLUS FIERRO MD DR: TEMITOPE/nts JOB#: [id number] / [id number]
[2019-01-18] MEDS ORDERED: cefTRIAXone IV Push 1 GM VIAL. IVP SCH (13:00)
--- NOTE | 2019-01-18 14:52 | NUR ---
SW following pt for dc planning. Chart reviewed. Pt lives at home alone and has a son living close by. PT recommends Home health and pt has RW at home. SW will arrange home health if ordered by PCP. Will continue to follow as needed.
[2019-01-18 15:00] VITALS: BP 130/64
--- NOTE | 2019-01-18 15:00 | CONS ---
DATE OF CONSULTATION: 01/18/2019 ATTENDING PHYSICIAN: Dr. Lopez. REASON FOR CONSULTATION: The patient was seen at the request of Dr. Lucía Lopez for rehab evaluation. HISTORY OF PRESENT ILLNESS: This is an 83-year-old right-handed male. The patient is in room 584, admitted on 01/17/2019 after he was seen in the Emergency Room on 01/16/2019 with weakness after a fall. He was found with normal lactic acid level, normal white count and pending blood cultures that showed gram-positive cocci in clusters in both bottles. So, he was called back to the Emergency Room for admission. He denies any fevers, chills, cold, cough, congestion or dyspnea recently. Occasional cough from his chronic obstructive pulmonary disease, which responds well to breathing treatment and sputum is clear. He had CT scan of the lumbar spine done on the day he was seen in the Emergency Room initially, which showed acute L3 vertebral body compression fracture, but he denies any back pain or any radiation of the back pain to the extremities. He denies any trouble with his bowel or bladder control. The patient with known chronic obstructive pulmonary disease with episodes of recurrent bronchitis and admissions, degenerative joint disease involving multiple joints, benign prostatic hypertrophy, benign hypertension, chronic kidney disease stage 3, anxiety, hyperlipidemia and coronary artery disease, status post stenting done in 2011. His serum creatinine usually ranges from 1.6 to 2. History of C. diff colitis in 2012, old myocardial infarction, deep venous thrombosis, small-bowel obstruction, gastroesophageal reflux disease, hemorrhoids, hypertension, lumbar spinal stenosis at L4-L5, macular degeneration, left eye and hypertension. The patient had L5-S1 decompression and microdiskectomy and right L4-L5 decompression done in the past; also partial colectomy, appendectomy, tonsillectomy and hemorrhoidectomy. ALLERGIES: KNOWN ALLERGIC TO SULFA, PLAVIX, VALSARTAN, WARFARIN, CLARITHROMYCIN, CODEINE, CYCLOBENZAPRINE, LISINOPRIL, PRASUGREL AND TIZANIDINE. He lives alone, has stairs to manage. He had some problem with dizziness on occasion. The patient does not use any assistive devices at home. He had a cane and walker at home. He drives, cooks himself. PHYSICAL EXAMINATION: GENERAL: Today revealed an elderly male. NEUROLOGIC: He is alert; oriented to time, place, person and circumstance and follows commands appropriately. Moves all 4 extremities voluntarily, where he had 4+/5 grade muscle strength and deep tendon reflexes are decreased overall, with absent knee and ankle jerks. He had equal perception of touch and pinprick sensation bilaterally. MUSCULOSKELETAL: No tenderness to palpation over thoracic or lumbar spine area or adjoining paraspinal muscles. Straight leg raising test is negative bilaterally. No significant lumbar paraspinal muscle spasm was noted at this time. He is independent with bed mobility and transfers and up walking using a roller walker without any dizziness. His skin is intact at this time. ASSESSMENT: Elderly male with previous lumbar spine surgery with recent L3 vertebral body compression fracture without any back pain, clinical evidence of peripheral neuropathy, degenerative joint disease, hypertension, chronic kidney disease stage 3, anxiety, hyperlipidemia, coronary artery disease and gastroesophageal reflux disease. RECOMMENDATIONS: To make him independent in his room at walker level; home when medically stable with home health or outpatient followup. Dr. Lopez, I appreciate asking me to participate in the care of this interesting patient. I will be glad to follow him with you as needed for the rehabilitation. ARI PORTILLO MD DR: RHETT/lory JOB#: [id number] / [id number]
[2019-01-18] MEDS: VANCOMYCIN PER PHARMACY MC PRN (16:13)
--- NOTE | 2019-01-18 16:13 | NUR ---
Pharmacy Vancomycin Dosing Note S: Consulted to monitor and dose vancomycin started 01/17/19. O: BASHIR ARROYO is a 83 year old M with Bacteremia. LABS: Last BUN: 24 Last Creatinine: 1.8 Creatinine Clearance: 29 mL/min Last WBC: 5.2 Tmax (past 24 hours): 98.3 Vancomycin Dosing: Dosing Weight: Actual Target Trough: 10-20 A: Based on: VANCO dosing guidelines P: 1. Vancomycin 1750mg LOAD dose (01/17) then 1000 mg IV q24h 2. Follow up Trough level on 01/19/19 at 1630 3. Pharmacy will continue to monitor, follow and adjust therapy as needed. MELVIN FOY, [facility], 01/18/19 [id number]
[2019-01-18] MEDS: VANCOMYCIN 1 GM in IV NORMAL SALINE 250ML 250 ML IV SCH (16:31)
[2019-01-18 19:00] VITALS: BP 110/47
[2019-01-18] MEDS: HEPARIN for SUB-Q USE 5,000 UNIT/ML VIAL. SQ SCH (21:00)
[2019-01-18] MEDS: MIRTAZAPINE 7.5 MG TABLET. PO SCH (21:16)
[2019-01-18] MEDS: MONTELUKAST SODIUM 10 MG TABLET. PO SCH (21:16)
[2019-01-18] MEDS: LACTOBACILLUS RHAMNOSUS GG 1 CAPSULE. PO SCH (21:16)
[2019-01-18] MEDS: SIMVASTATIN 20 MG TABLET PO SCH (21:16)
[2019-01-18] MEDS: DOXAZOSIN MESYLATE 4 MG TABLET. PO SCH (21:17)
[2019-01-18 23:00] VITALS: BP 106/47
[2019-01-19 03:00] VITALS: BP 106/47
[2019-01-19 04:39] LABS: BASO % 1 % (0-3); EOS # 0.8 x10^3/uL (0.0-0.7); EOS % 17 % (0-3); HEMATOCRIT 25.2 % (39.0-53.0); HEMOGLOBIN 8.4 g/dL (13.0-17.5); LYMPH # 1.4 x10^3/uL (1.0-4.8); LYMPH % 28 % (24-48); MEAN CORPUSCULAR HEMOGLOBIN 29 pg (25-35); MEAN CORPUSCULAR HGB CONC 33 g/dL (31-37); MEAN CORPUSCULAR VOLUME 86 fL (79-100); MONO # 0.5 x10^3/uL (0.0-1.1); MONO % 9 % (0-9); NEUT # 2.2 x10^3/uL (1.8-7.7); NEUT % 45 % (31-73); PLATELET COUNT 180 x10^3/uL (140-400); RED BLOOD COUNT 2.93 x10^6/uL (4.30-5.70); RED CELL DISTRIBUTION WIDTH 16.4 % (11.5-14.5); WHITE BLOOD COUNT 4.9 x10^3/uL (4.0-11.0)
[2019-01-19 05:06] LABS: CALCIUM 8.8 mg/dL (8.5-10.1); CREATININE 1.7 mg/dL (0.7-1.3); GFR 38.5
[2019-01-19 07:00] VITALS: BP 124/60
[2019-01-19] MEDS: BUDESONIDE 0.5 MG/2 ML NEBU. NEB SCH ×2 (07:49→20:12)
[2019-01-19] MEDS: ALBUTEROL SULFATE 2.5 MG/3 ML NEBU. NEB SCH ×4 (07:49→20:12)
[2019-01-19] MEDS: PANTOPRAZOLE 40 MG TABLET.DR. PO SCH (08:30)
[2019-01-19] MEDS: FLUTICASONE 50MCG/NASAL SPRAY 16GM BOTTLE. NS SCH (08:31)
[2019-01-19] MEDS: DICLOFENAC SODIUM 1% TOPICAL GEL 100GM TUBE. TP SCH ×2 (08:34→21:04)
[2019-01-19] MEDS: CYANOCOBALAMIN (VITAMIN B-12) 1,000 MCG TABLET. PO SCH (08:35)
[2019-01-19] MEDS: ASPIRIN ENTERIC COATED 81 MG TABLET.DR. PO SCH (08:35)
[2019-01-19] MEDS: CALCIUM CARB/VIT D3 500/200 TABLET. PO SCH (08:35)
[2019-01-19] MEDS: MULTIVITAMIN with MINERAL TABLET. PO SCH (08:35)
[2019-01-19] MEDS: CETIRIZINE HCL 10 MG TABLET. PO SCH (08:35)
[2019-01-19] MEDS: LACTOBACILLUS RHAMNOSUS GG 1 CAPSULE. PO SCH ×2 (08:35→20:56)
[2019-01-19] MEDS: ASCORBIC ACID 500 MG TABLET PO SCH (08:35)
[2019-01-19] MEDS: hydrALAZINE 25 MG TABLET PO SCH ×2 (08:36→20:57)
[2019-01-19] MEDS: CARVEDILOL 3.125 MG TABLET. PO SCH ×2 (08:36→16:58)
[2019-01-19] MEDS: HEPARIN for SUB-Q USE 5,000 UNIT/ML VIAL. SQ SCH ×2 (08:38→21:03)
--- NOTE | 2019-01-19 08:41 | PDOC ---
Infectious Disease Note Subjective Subjective Doing ok. Cough has essentially resolved No F/C/S/N/V/D/SOA/rash ROS ROS o/w neg Vital Sign Vital Signs Vital Signs Date Time Temp Pulse Resp B/P (MAP) Pulse Ox O2 Delivery O2 Flow Rate FiO2 01/19/19 08:36 66 124/60 01/19/19 07:51 Room Air 01/19/19 07:00 98.0 18 95 98.0 Physical Exam PHYSICAL EXAM GENERAL: The patient is alert, oriented x 3 and not in acute distress. In a chair EYES: Pupils reacting to light. Conjunctivae pale. HEENT: The patient is wearing hearing aids. Throat is clear. NECK: Supple. JVP normal. LUNGS: Decreased breath sounds at bases. No wheezing. No rales. Occ squeak CARDIOVASCULAR: S1, S2 regular. ABDOMEN: Soft, nontender, no guarding, no rigidity. Bowel sounds present. EXTREMITIES: No edema. Lumbar spine, no tenderness. CENTRAL NERVOUS SYSTEM: Alert and oriented, anxious, has tremors that are chronic. Affect - appropriate Labs Lab Laboratory Tests Test 01/19/19 04:08 White Blood Count 4.9 x10^3/uL (4.0-11.0) Red Blood Count 2.93 x10^6/uL (4.30-5.70) Hemoglobin 8.4 g/dL (13.0-17.5) Hematocrit 25.2 % (39.0-53.0) Mean Corpuscular Volume 86 fL (79-100) Mean Corpuscular Hemoglobin 29 pg (25-35) Mean Corpuscular Hemoglobin Concent 33 g/dL (31-37) Red Cell Distribution Width 16.4 % (11.5-14.5) Platelet Count 180 x10^3/uL (140-400) Neutrophils (%) (Auto) 45 % (31-73) Lymphocytes (%) (Auto) 28 % (24-48) Monocytes (%) (Auto) 9 % (0-9) Eosinophils (%) (Auto) 17 % (0-3) Basophils (%) (Auto) 1 % (0-3) Neutrophils # (Auto) 2.2 x10^3/uL (1.8-7.7) Lymphocytes # (Auto) 1.4 x10^3/uL (1.0-4.8) Monocytes # (Auto) 0.5 x10^3/uL (0.0-1.1) Eosinophils # (Auto) 0.8 x10^3/uL (0.0-0.7) Basophils # (Auto) 0.0 x10^3/uL (0.0-0.2) Sodium Level 148 mmol/L (136-145) Potassium Level 4.0 mmol/L (3.5-5.1) Chloride Level 113 mmol/L (98-107) Carbon Dioxide Level 27 mmol/L (21-32) Anion Gap 8 (6-14) Blood Urea Nitrogen 20 mg/dL (8-26) Creatinine 1.7 mg/dL (0.7-1.3) Estimated GFR (Cockcroft-Gault) 38.5 Glucose Level 90 mg/dL (70-99) Calcium Level 8.8 mg/dL (8.5-10.1) Micro Microbiology 01/17/19 Blood Culture - Preliminary, Resulted NO GROWTH AFTER 1 DAY Objective Assessment Bacteremia 2/2 bottles 01/16 Compression fracture L3 CKD - stable Sulfa allergy - does not remember reaction but almost killed him Plan Plan of Care Cont Vanc F/u labs and cults JUANCARLOS STOCKTON MD Jan 19, 2019 08:41
--- NOTE | 2019-01-19 09:05 | NUR ---
IP: Once pt's belongings are placed in bags and tied, pt may be removed from contact precautions.
--- NOTE | 2019-01-19 09:46 | PDOC ---
IM PROGRESS NOTES- Subjective Subjective No complaints of pain or dyspnea. Back pain is better. Objective Vitals/I&O Vital Signs Date Time Temp Pulse Resp B/P (MAP) Pulse Ox O2 Delivery O2 Flow Rate FiO2 01/19/19 08:36 66 124/60 01/19/19 07:51 Room Air 01/19/19 07:00 98.0 18 95 98.0 I & O 01/18/19 01/18/19 01/19/19 14:59 22:59 06:59 Intake Total 450 ml 350 ml Output Total 400 ml Balance 450 ml -50 ml Physical Exam Physical Exam General appearance - alert,well appearing, and in mild distress and oriented to person, place, and time Mental Status - alert, oriented to person, place, and time, affect appropriate to mood Head - normal Chest -decreased breath sounds at bases Heart - S1 and S2 normal Abdomen - soft, nontender, Neurological - alert and oriented, has tremors Musculoskeletal -patient is walking without any problems. Extremities - no pedal edema Skin - warm and dry Labs Laboratory Tests Test 01/19/19 04:08 White Blood Count 4.9 x10^3/uL (4.0-11.0) Red Blood Count 2.93 x10^6/uL (4.30-5.70) L Hemoglobin 8.4 g/dL (13.0-17.5) L Hematocrit 25.2 % (39.0-53.0) L Mean Corpuscular Volume 86 fL (79-100) Mean Corpuscular Hemoglobin 29 pg (25-35) Mean Corpuscular Hemoglobin Concent 33 g/dL (31-37) Red Cell Distribution Width 16.4 % (11.5-14.5) H Platelet Count 180 x10^3/uL (140-400) Neutrophils (%) (Auto) 45 % (31-73) Lymphocytes (%) (Auto) 28 % (24-48) Monocytes (%) (Auto) 9 % (0-9) Eosinophils (%) (Auto) 17 % (0-3) H Basophils (%) (Auto) 1 % (0-3) Neutrophils # (Auto) 2.2 x10^3/uL (1.8-7.7) Lymphocytes # (Auto) 1.4 x10^3/uL (1.0-4.8) Monocytes # (Auto) 0.5 x10^3/uL (0.0-1.1) Eosinophils # (Auto) 0.8 x10^3/uL (0.0-0.7) H Basophils # (Auto) 0.0 x10^3/uL (0.0-0.2) Sodium Level 148 mmol/L (136-145) H Potassium Level 4.0 mmol/L (3.5-5.1) Chloride Level 113 mmol/L (98-107) H Carbon Dioxide Level 27 mmol/L (21-32) Anion Gap 8 (6-14) Blood Urea Nitrogen 20 mg/dL (8-26) Creatinine 1.7 mg/dL (0.7-1.3) H Estimated GFR (Cockcroft-Gault) 38.5 Glucose Level 90 mg/dL (70-99) Calcium Level 8.8 mg/dL (8.5-10.1) Laboratory Tests 01/19/19 04:08 Laboratory Tests 01/19/19 04:08 Meds Current Medications Medications (Trade) Dose Ordered Sig/Juhi Route PRN Reason Start Time Stop Time Status Last Admin Dose Admin Vancomycin HCl 1 gm/Sodium Chloride 250 ml @ 250 mls/hr Q24H IV 01/18/19 16:00 01/18/19 16:31 Simvastatin (Zocor) 20 mg HS PO 01/18/19 21:00 01/18/19 21:16 Heparin Sodium (Porcine) (Heparin Sodium) 5,000 unit Q12HR SQ 01/18/19 21:00 01/19/19 08:38 Carvedilol (Coreg) 3.125 mg BIDWMEALS PO 01/18/19 17:00 01/19/19 08:36 Lactobacillus Rhamnosus (Culturelle) 1 cap BID PO 01/18/19 21:00 01/19/19 08:35 Assessment Assessment 1. Gram-positive bacteremia in 2/2 bottles. The patient is asymptomatic. 2. Weakness. 3. Fall. 4. L3 compression fracture, acute on the CT scan of spine; however, the patient states he has no symptoms now. 5. Chronic obstructive pulmonary disease. 6. Dizziness. 7. Chronic kidney disease stage 3. 8. Coronary artery disease. 9. Hypertension. 10. 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 11. Anxiety. PLAN: Consult Dr. Melton for Infectious Disease evaluation and management. Continue IV vancomycin for now, but consider changing to Zyvox if the patient has renal insufficiency. Consult Dr. Bass for rehab evaluation and management because of the falls and weakness and recent likely compression fracture of the L3. The patient has lumbar spinal stenosis that is chronic, along with degenerative changes. For details, please refer to the orders. The patient's back pain is better today. Gram-positive bacteremia- continue IV vancomycin. Blood cultures 2 out of 2 positive for gram-positive bacteria. Cultures drawn on 01/17 are negative so far L3 compression fracture- discussed with Dr. Bass. No intervention needed. Patient is walking well. Hypernatremia- sodium is 148. Encouraged to increase more fluid intake. I will give him 500 mL of IV D5W. COPD- continue breathing treatment. Tremors- patient feels that the tremors are getting worse. I'll consult neurologist. Previously patient has had the worsening tremors with breathing treatment also. Patient had problems with bedbugs at home and the family is trying to clean the house. Plan Plan For more details regarding further plans, please refer to the orders. MARCELLUS FIERRO MD Jan 19, 2019 09:46
[2019-01-19] MEDS ORDERED: IV DEXTROSE 5% 500 ML IV ONE (10:00)
--- NOTE | 2019-01-19 10:41 | PDOC ---
PROGRESS NOTES Subjective Subjective He denies any back pain. Objective Objective Vital Signs Date Time Temp Pulse Resp B/P (MAP) Pulse Ox O2 Delivery O2 Flow Rate FiO2 01/19/19 08:36 66 124/60 01/19/19 08:00 Room Air 01/19/19 07:00 98.0 18 95 98.0 Intake and Output 01/19/19 06:59 Intake Total 800 ml Output Total 400 ml Balance 400 ml Intake Oral 550 ml IV Total 250 ml Output Urine Total 400 ml # Voids 3 # Bowel Movements 2 Physical Exam Physical Exam He is independent with his mobility at roller walker level. Assessment Assessment Problems Medical Problems: (1) Bacteremia Status: Acute (2) Chronic anemia Status: Acute (3) Chronic CHF Status: Acute (4) Compression fx, lumbar spine Status: Acute Plan Plan of Correction when medically stable. Comment Review of Relevant I have reviewed the following items tawnya (where applicable) has been applied. Labs Laboratory Tests Test 01/17/19 12:30 01/17/19 15:00 01/18/19 04:25 01/19/19 04:08 White Blood Count 5.9 x10^3/uL (4.0-11.0) 5.2 x10^3/uL (4.0-11.0) 4.9 x10^3/uL (4.0-11.0) Red Blood Count 3.21 x10^6/uL (4.30-5.70) 2.84 x10^6/uL (4.30-5.70) 2.93 x10^6/uL (4.30-5.70) Hemoglobin 9.1 g/dL (13.0-17.5) 8.1 g/dL (13.0-17.5) 8.4 g/dL (13.0-17.5) Hematocrit 27.6 % (39.0-53.0) 24.2 % (39.0-53.0) 25.2 % (39.0-53.0) Mean Corpuscular Volume 86 fL (79-100) 85 fL (79-100) 86 fL (79-100) Mean Corpuscular Hemoglobin 28 pg (25-35) 29 pg (25-35) 29 pg (25-35) Mean Corpuscular Hemoglobin Concent 33 g/dL (31-37) 33 g/dL (31-37) 33 g/dL (31-37) Red Cell Distribution Width 16.2 % (11.5-14.5) 16.6 % (11.5-14.5) 16.4 % (11.5-14.5) Platelet Count 190 x10^3/uL (140-400) 189 x10^3/uL (140-400) 180 x10^3/uL (140-400) Neutrophils (%) (Auto) 69 % (31-73) 55 % (31-73) 45 % (31-73) Lymphocytes (%) (Auto) 14 % (24-48) 23 % (24-48) 28 % (24-48) Monocytes (%) (Auto) 5 % (0-9) 8 % (0-9) 9 % (0-9) Eosinophils (%) (Auto) 12 % (0-3) 14 % (0-3) 17 % (0-3) Basophils (%) (Auto) 1 % (0-3) 1 % (0-3) 1 % (0-3) Neutrophils # (Auto) 4.1 x10^3/uL (1.8-7.7) 2.9 x10^3/uL (1.8-7.7) 2.2 x10^3/uL (1.8-7.7) Lymphocytes # (Auto) 0.8 x10^3/uL (1.0-4.8) 1.2 x10^3/uL (1.0-4.8) 1.4 x10^3/uL (1.0-4.8) Monocytes # (Auto) 0.3 x10^3/uL (0.0-1.1) 0.4 x10^3/uL (0.0-1.1) 0.5 x10^3/uL (0.0-1.1) Eosinophils # (Auto) 0.7 x10^3/uL (0.0-0.7) 0.7 x10^3/uL (0.0-0.7) 0.8 x10^3/uL (0.0-0.7) Basophils # (Auto) 0.1 x10^3/uL (0.0-0.2) 0.0 x10^3/uL (0.0-0.2) 0.0 x10^3/uL (0.0-0.2) Prothrombin Time 13.6 SEC (11.7-14.0) Prothromb Time International Ratio 1.1 (0.8-1.1) Sodium Level 145 mmol/L (136-145) 147 mmol/L (136-145) 148 mmol/L (136-145) Potassium Level 3.8 mmol/L (3.5-5.1) 3.9 mmol/L (3.5-5.1) 4.0 mmol/L (3.5-5.1) Chloride Level 107 mmol/L (98-107) 111 mmol/L (98-107) 113 mmol/L (98-107) Carbon Dioxide Level 27 mmol/L (21-32) 27 mmol/L (21-32) 27 mmol/L (21-32) Anion Gap 11 (6-14) 9 (6-14) 8 (6-14) Blood Urea Nitrogen 25 mg/dL (8-26) 24 mg/dL (8-26) 20 mg/dL (8-26) Creatinine 1.9 mg/dL (0.7-1.3) 1.8 mg/dL (0.7-1.3) 1.7 mg/dL (0.7-1.3) Estimated GFR (Cockcroft-Gault) 33.9 36.0 38.5 BUN/Creatinine Ratio 13 (6-20) Glucose Level 98 mg/dL (70-99) 94 mg/dL (70-99) 90 mg/dL (70-99) Lactic Acid Level 0.8 mmol/L (0.4-2.0) Calcium Level 9.0 mg/dL (8.5-10.1) 8.3 mg/dL (8.5-10.1) 8.8 mg/dL (8.5-10.1) Total Bilirubin 0.3 mg/dL (0.2-1.0) Aspartate Amino Transf (AST/SGOT) 20 U/L (15-37) Alanine Aminotransferase (ALT/SGPT) 16 U/L (16-63) Alkaline Phosphatase 61 U/L (46-116) Total Protein 7.0 g/dL (6.4-8.2) Albumin 3.3 g/dL (3.4-5.0) Albumin/Globulin Ratio 0.9 (1.0-1.7) Urine Collection Type Unknown Urine Color Yellow Urine Clarity Clear Urine pH 5.5 Urine Specific [place] 1.015 Urine Protein Negative mg/dL (NEG-TRACE) Urine Glucose (UA) Negative mg/dL (NEG) Urine Ketones (Stick) Negative mg/dL (NEG) Urine Blood Negative (NEG) Urine Nitrite Negative (NEG) Urine Bilirubin Negative (NEG) Urine Urobilinogen Dipstick 1.0 mg/dL (0.2 mg/dL) Urine Leukocyte Esterase Negative (NEG) Urine RBC Rare /HPF (0-2) Urine WBC Rare /HPF (0-4) Urine Bacteria 0 /HPF (0-FEW) Urine Mucus Slight /LPF Laboratory Tests Test 01/19/19 04:08 White Blood Count 4.9 x10^3/uL (4.0-11.0) Red Blood Count 2.93 x10^6/uL (4.30-5.70) Hemoglobin 8.4 g/dL (13.0-17.5) Hematocrit 25.2 % (39.0-53.0) Mean Corpuscular Volume 86 fL (79-100) Mean Corpuscular Hemoglobin 29 pg (25-35) Mean Corpuscular Hemoglobin Concent 33 g/dL (31-37) Red Cell Distribution Width 16.4 % (11.5-14.5) Platelet Count 180 x10^3/uL (140-400) Neutrophils (%) (Auto) 45 % (31-73) Lymphocytes (%) (Auto) 28 % (24-48) Monocytes (%) (Auto) 9 % (0-9) Eosinophils (%) (Auto) 17 % (0-3) Basophils (%) (Auto) 1 % (0-3) Neutrophils # (Auto) 2.2 x10^3/uL (1.8-7.7) Lymphocytes # (Auto) 1.4 x10^3/uL (1.0-4.8) Monocytes # (Auto) 0.5 x10^3/uL (0.0-1.1) Eosinophils # (Auto) 0.8 x10^3/uL (0.0-0.7) Basophils # (Auto) 0.0 x10^3/uL (0.0-0.2) Sodium Level 148 mmol/L (136-145) Potassium Level 4.0 mmol/L (3.5-5.1) Chloride Level 113 mmol/L (98-107) Carbon Dioxide Level 27 mmol/L (21-32) Anion Gap 8 (6-14) Blood Urea Nitrogen 20 mg/dL (8-26) Creatinine 1.7 mg/dL (0.7-1.3) Estimated GFR (Cockcroft-Gault) 38.5 Glucose Level 90 mg/dL (70-99) Calcium Level 8.8 mg/dL (8.5-10.1) Microbiology 01/17/19 Blood Culture - Preliminary, Resulted NO GROWTH AFTER 1 DAY Medications Current Medications Ceftriaxone Sodium (Rocephin) 1 gm 1X ONCE IVP Last administered on 01/17/19at 13:21; Start 01/17/19 at 12:45; Stop 01/17/19 at 12:46; Status DC Vancomycin HCl 250 ml @ 250 mls/hr 1X ONCE IV Last administered on 01/17/19at 13:22; Start 01/17/19 at 12:45; Stop 01/17/19 at 13:44; Status DC Acetaminophen (Tylenol) 650 mg PRN Q6HRS PRN PO MILD PAIN 1-3; Start 01/17/19 at 17:30 Aspirin (Ecotrin) 81 mg DAILY PO Last administered on 01/19/19at 08:35; Start 01/18/19 at 09:00 Carvedilol (Coreg) 3.125 mg BIDWMEALS PO ; Start 01/17/19 at 18:00; Stop 01/17/19 at 18:00; Status DC Cyanocobalamin (Vitamin B-12) 1,000 mcg DAILY PO Last administered on 01/19/19 08:35; Start 01/18/19 at 09:00 Diclofenac Sodium (Voltaren) 1 roz BID TP Last administered on 01/19/19 08:34; Start 01/17/19 at 21:00 Fluticasone Propionate (Flonase) 2 spray DAILY NS Last administered on 01/19/19at 08:31; Start 01/18/19 at 09:00 Hydralazine HCl (Apresoline) 25 mg BID PO Last administered on 01/19/19 08:36; Start 01/17/19 at 21:00 Mirtazapine (Remeron) 7.5 mg HS PO Last administered on 01/18/19 21:16; Start 01/17/19 at 21:00 Montelukast Sodium (Singulair) 10 mg HS PO Last administered on 01/18/19 21:16; Start 01/17/19 at 21:00 Nitroglycerin (Nitrostat) 0.4 mg PRN Q5MIN PRN SL CHEST PAIN; Start 01/17/19 at 17:30 Non-Formulary Medication (Albuterol Sulfate (Albuterol Sulfate Conc Neb Soln)) 2.5 mg [id number] IH ; Start 01/17/19 at 21:00; Status UNV Ascorbic Acid (Vitamin C) 1,000 mg DAILY PO Last administered on 01/19/19 08:35; Start 01/18/19 at 09:00 Non-Formulary Medication (Budesonide/ Formoterol Fumarate (Symbicort 160-4.5 Mcg Inhaler)) 2 inhaler BID IH ; Start 01/17/19 at 21:00; Status UNV Calcium/Vitamin D (Oscal D 500mg/ 200uts) 1 tab [id number] PO Last administered on 01/19/19 08:35; Start 01/18/19 at 08:00 Doxazosin Mesylate (Cardura) 8 mg HS PO Last administered on 01/18/19 21:17; Start 01/17/19 at 21:00 Fluticasone Propionate (Flonase) 2 spray DAILY NS ; Start 01/18/19 at 09:00; Stop 01/18/19 at 11:10; Status DC Cetirizine HCl (ZyrTEC) 10 mg DAILY PO Last administered on 01/19/19 08:35; Start 01/18/19 at 09:00 Multivitamins (Thera M Plus) 1 tab DAILY PO Last administered on 01/19/19 08:35; Start 01/18/19 at 09:00 Pantoprazole Sodium (Protonix) 40 mg DAILYAC PO Last administered on 01/19/19 08:30; Start 01/18/19 at 07:30 Vancomycin HCl (Vanco Per Pharmacy) 1 each PRN DAILY PRN MC SEE COMMENTS Last administered on 01/18/19 16:13; Start 01/17/19 at 17:45 Ceftriaxone Sodium (Rocephin) 1 gm Q24H IVP ; Start 01/18/19 at 13:00; Stop 01/18/19 at 10:38; Status DC Budesonide (Pulmicort) 0.5 mg RTBID NEB Last administered on 01/19/19 07:49; Start 01/17/19 at 20:00 Albuterol Sulfate (Ventolin Neb Soln) 2.5 mg RTQID NEB Last administered on 01/19/19 07:49; Start 01/17/19 at 20:00 Vancomycin HCl 750 mg/Sodium Chloride 250 ml @ 250 mls/hr 1X ONCE IV Last administered on 01/17/19 18:23; Start 01/17/19 at 18:00; Stop 01/17/19 at 18:59; Status DC Vancomycin HCl 1 gm/Sodium Chloride 250 ml @ 250 mls/hr Q24H IV Last administered on 01/18/19 16:31; Start 01/18/19 at 16:00 Carvedilol (Coreg) 3.125 mg BID PO Last administered on 01/18/19 08:50; Start 01/17/19 at 21:00; Stop 01/18/19 at 14:28; Status DC Vancomycin HCl (Vancomycin Trough Level) 1 each 1X ONCE MC ; Start 01/19/19 at 15:30; Stop 01/19/19 at 15:31 Simvastatin (Zocor) 20 mg HS PO Last administered on 01/18/19at 21:16; Start 01/18/19 at 21:00 Heparin Sodium (Porcine) (Heparin Sodium) 5,000 unit Q12HR SQ Last administered on 01/19/19 08:38; Start 01/18/19 at 21:00 Carvedilol (Coreg) 3.125 mg BIDWMEALS PO Last administered on 01/19/19 08:36; Start 01/18/19 at 17:00 Lactobacillus Rhamnosus (Culturelle) 1 cap BID PO Last administered on 01/19/19at 08:35; Start 01/18/19 at 21:00 Dextrose 500 ml @ 80 mls/hr 1X ONCE IV ; Start 01/19/19 at 10:00; Stop 01/19/19 at 16:14 Active Scripts Active Tylenol (Acetaminophen) 325 Mg Tablet 650 Mg PO PRN Q6HRS PRN 30 Days Voltaren (Diclofenac Sodium) 100 Gm Gel..gram. 1 Roz TP BID 30 Days Vitamin B-12 (Cyanocobalamin (Vitamin B-12)) 1,000 Mcg Tablet 1,000 Mcg PO DAILY Reported Fluticasone Propionate Nasal [place] (Fluticasone Propionate) 16 Gm [place].susp 2 [place] NS DAILY Aspir-Low (Aspirin) 81 Mg Tablet.dr 1 Tab PO DAILY Doxazosin Mesylate 8 Mg Tablet 1 Tab PO HS Omeprazole 40 Mg Capsule.dr 1 Cap PO DAILY C-1000 (Ascorbic Acid) 1,000 Mg Tablet.er 1,000 Mg PO DAILY Claritin (Loratadine) 10 Mg Tablet 10 Mg PO DAILY Nitrostat (Nitroglycerin) 0.4 Mg Tab.subl 0.4 Mg SL PRN Q5MIN PRN Flonase Allergy Relief (Fluticasone Propionate) 9.9 Ml [place].susp 2 Sprays NS DAILY Calcium 500-Vit D3 600 Tablet (Calcium Carbonate/Vitamin D3) 1 Each Tablet 1 Each PO DAILY Singulair Tablet (Montelukast Sodium) 10 Mg Tablet 10 Mg PO HS Centrum Silver Tablet (Multivits-Min/Fa/Lycopene/Lut) 1 Each Tablet 1 Each PO DAILY Carvedilol (Carvedilol) 3.125 Mg Tablet 1 Tab PO BID Hydralazine Hcl 25 Mg Tablet 1 Tab PO BID Mirtazapine 7.5 Mg Tablet 7.5 Mg PO HS Simvastatin 20 Mg Tablet 20 Mg PO HS Symbicort 160-4.5 Mcg Inhaler (Budesonide/Formoterol Fumarate) 10.2 Gm Hfa.aer.ad 2 Inhaler IH BID Albuterol Sulfate Conc Neb Soln (Albuterol Sulfate) 2.5 Mg/0.5 Ml Vial.neb 2.5 Mg IH [id number] Vitals/I & O Vital Sign - Last 24 Hours 01/18/19 01/18/19 01/18/19 01/18/19 11:00 11:50 15:00 17:07 Temp 97.8 98.0 97.8 98.0 Pulse 75 70 Resp 19 18 B/P (MAP) 164/58 (93) 130/64 (86) Pulse Ox 95 95 95 96 O2 Delivery Room Air Room Air Room Air Room Air 01/18/19 01/18/19 01/18/19 01/18/19 17:36 19:00 20:00 20:07 Temp 98.1 98.1 Pulse 70 68 Resp 18 B/P (MAP) 130/64 110/47 (68) Pulse Ox 95 96 O2 Delivery Room Air Room Air Room Air 01/18/19 01/18/19 01/18/19 01/19/19 21:17 21:17 23:00 03:00 Temp 98.5 98.5 98.5 98.5 Pulse 68 68 65 65 Resp 18 18 B/P (MAP) 110/47 110/47 106/47 (66) 106/47 (66) Pulse Ox 94 94 O2 Delivery Room Air Room Air 01/19/19 01/19/19 01/19/19 01/19/19 07:00 07:51 08:00 08:36 Temp 98.0 98.0 Pulse 66 66 Resp 18 B/P (MAP) 124/60 (81) 124/60 Pulse Ox 95 O2 Delivery Room Air Room Air Room Air 01/19/19 08:36 Pulse 66 B/P (MAP) 124/60 Intake and Output 01/18/19 01/18/19 01/19/19 14:59 22:59 06:59 Intake Total 450 ml 350 ml Output Total 400 ml Balance 450 ml -50 ml ARI PORTILLO MD Jan 19, 2019 10:41
[2019-01-19 11:00] VITALS: BP 110/58
[2019-01-19 15:00] VITALS: BP 134/66
[2019-01-19 16:03] LABS: VANC TR 16.6 mcg/mL (10.0-20.0)
[2019-01-19] MEDS: VANCOMYCIN PER PHARMACY MC PRN (16:07)
--- NOTE | 2019-01-19 16:07 | NUR ---
Pharmacy Vancomycin Dosing Note S: Consulted to monitor and dose vancomycin started 01/17/19. O: BASHIR ARROYO is a 83 year old M with Bacteremia. LABS: Last BUN: 20 Last Creatinine: 1.7 Creatinine Clearance: 29 mL/min Last WBC: 4.9 Last Procalcitonin: Tmax (past 24 hours): 98.3 Drug Levels: Last Trough level: 16.6 on 01/19/19 at 1530 Last dose given 01/18/19 at 1631 Vancomycin Dosing: Dosing Weight: Actual Target Trough: 10-20 A: Based on: therapeutic trough level P: 1. Continue Vancomycin 1000 mg IV q24h 2. Follow up Trough level in 5-7 days or if renal function changes 3. Pharmacy will continue to monitor, follow and adjust therapy as needed. MELVIN FOY [facility], 01/19/19 [id number]
[2019-01-19] MEDS: VANCOMYCIN 1 GM in IV NORMAL SALINE 250ML 250 ML IV SCH (16:30)
--- NOTE | 2019-01-19 17:21 | PDOC2 ---
NEUROLOGY CONSULT Date of Admission Date of Admission DATE: 01/19/19 TIME: 16:54 Reason for Consult Reason for Consult: IMPRESSION: Tremors, ET. Generalized weakness. Falls. Sepsis? Renal failure. CAD s/p stents placement. HTN. HLD. COPD. Anemia. L3 acute compression fracture. Degenerative spine disease. RECOMMENDATIONS/PLAN: Neurontin 100 mg bid with titration up. Treat medical diseases. Lab: see orders. OT/PT. Continue access for PD. HISTORY OF THE PRESENT ILLNESS: This is an 83-year-old male patient with above medical diseases stating he has been having chronic tremors in his hands for over a year. He stated he did not have abnormal movements in head, but he was observed mild tremor like movements in his head at the time of neurology consultation. He said his LE were not affected. 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 He has degenerative joint disease involving multiple joints, benign prostatic hypertrophy, benign hypertension, chronic kidney disease stage 3, anxiety, hyperlipidemia, coronary artery disease. He had a stent placed in 2011. His creatinine ranges from 1.6 to 2. History of Clostridium difficile colitis in 2012. History of old myocardial infarction, DVT in 2011, small bowel obstruction in 2011. CAD, 2 stents placed at in 2012. Carotid artery disease, GERD, hemorrhoids, hypertension, lumbar spinal stenosis of L4-L5, macular degeneration of left eye dry, osteoarthritis of multiple sites and history of hypotension. PAST SURGICAL HISTORY: Stents placed in 2012, 2 stents placed L5-S1 decompression with microdiskectomy and right L4-L5 decompression, partial colectomy, appendectomy, tonsillectomy and hemorrhoidectomy. ALLERGIES: CLARITHROMYCIN THAT CAUSES RASH, CLOPIDOGREL CAUSES RASH. CODEINE, CYCLOBENZAPRINE CAUSES ITCHING. LISINOPRIL AND PRASUGREL CAUSES NAUSEA, MODERATE TO SEVERE. SULFA, ANTIBIOTICS, TIZANIDINE, ITCHING, MILD TO MODERATE. FAMILY HISTORY: His father had coronary artery disease. Mother had coronary artery disease. SOCIAL HISTORY: Ex-cigarette smoker. Denied history of alcoholism or drug abuse. MEDICATIONS: Refer to MAR REVIEW OF SYSTEMS: Constitutional: No malnutrition, weight loss, cachexia. Head: No recent traumatic brain or head injury. Skin: No edema, or rash. Ear: No infection. Eyes: No vision loss or color blindness. Nose: No bleeding or purulent discharges. Hearing: Hearing decrease. Neck: No injury. Cardiac: CAD, s/p stents placement, HTN, HLD. Pulmonary: COPD. GI: No GI ulcer, GI bleeding. Urinary/genital: CKD. Endocrinologic: No cousin face, craniofacial dysmorphism. Skeletomuscular: Generalized weakness. Falls. Neurological: see HP. Psychiatric: Denies drug use/abuse. Otherwise, not [id number] review of systems. PHYSICAL EXAMINATION: General appearance is in subacute distress. HEENT: Normocephalic and nontraumatic. Eyes, nose, ears, and throat are unremarkable. Neck is supple. No lymphadenopathy. No crepitus. Cardiovascular: S1, S2, regular rate and rhythm. Pulmonary: Clear to auscultation bilaterally. Abdomen: Bowel sounds are positive. Extremities: No rash, lesions, or edema. No restriction of range of motion NEUROLOGICAL EXAMINATION: Awake. Partially oriented to time, place and person. PERRL. EOMI. CN: no focal findings. Muscle tone: within normal. Muscle strength: 4 DTR: 1-2 Plantar reflex: Neutral response bilaterally Gait: not examined in bed. Sensory exam: no abnormal findings. No cerebellar signs elicited. F-T-N test fine. Current Medications Current Medications Current Medications Ceftriaxone Sodium (Rocephin) 1 gm 1X ONCE IVP Last administered on 01/17/19 13:21; Start 01/17/19 at 12:45; Stop 01/17/19 at 12:46; Status DC Vancomycin HCl 250 ml @ 250 mls/hr 1X ONCE IV Last administered on 01/17/19at 13:22; Start 01/17/19 at 12:45; Stop 01/17/19 at 13:44; Status DC Acetaminophen (Tylenol) 650 mg PRN Q6HRS PRN PO MILD PAIN 1-3; Start 01/17/19 at 17:30 Aspirin (Ecotrin) 81 mg DAILY PO Last administered on 01/19/19at 08:35; Start 01/18/19 at 09:00 Carvedilol (Coreg) 3.125 mg BIDWMEALS PO ; Start 01/17/19 at 18:00; Stop 01/17/19 at 18:00; Status DC Cyanocobalamin (Vitamin B-12) 1,000 mcg DAILY PO Last administered on 01/19/19at 08:35; Start 01/18/19 at 09:00 Diclofenac Sodium (Voltaren) 1 roz BID TP Last administered on 01/19/19 08:34; Start 01/17/19 at 21:00 Fluticasone Propionate (Flonase) 2 spray DAILY NS Last administered on 01/19/19 08:31; Start 01/18/19 at 09:00 Hydralazine HCl (Apresoline) 25 mg BID PO Last administered on 01/19/19 08:36; Start 01/17/19 at 21:00 Mirtazapine (Remeron) 7.5 mg HS PO Last administered on 01/18/19 21:16; Start 01/17/19 at 21:00 Montelukast Sodium (Singulair) 10 mg HS PO Last administered on 01/18/19 21:16; Start 01/17/19 at 21:00 Nitroglycerin (Nitrostat) 0.4 mg PRN Q5MIN PRN SL CHEST PAIN; Start 01/17/19 at 17:30 Non-Formulary Medication (Albuterol Sulfate (Albuterol Sulfate Conc Neb Soln)) 2.5 mg [id number] IH ; Start 01/17/19 at 21:00; Status UNV Ascorbic Acid (Vitamin C) 1,000 mg DAILY PO Last administered on 01/19/19 08:35; Start 01/18/19 at 09:00 Non-Formulary Medication (Budesonide/ Formoterol Fumarate (Symbicort 160-4.5 Mcg Inhaler)) 2 inhaler BID IH ; Start 01/17/19 at 21:00; Status UNV Calcium/Vitamin D (Oscal D 500mg/ 200uts) 1 tab [id number] PO Last administered on 01/19/19 08:35; Start 01/18/19 at 08:00 Doxazosin Mesylate (Cardura) 8 mg HS PO Last administered on 01/18/19 21:17; Start 01/17/19 at 21:00 Fluticasone Propionate (Flonase) 2 spray DAILY NS ; Start 01/18/19 at 09:00; Stop 01/18/19 at 11:10; Status DC Cetirizine HCl (ZyrTEC) 10 mg DAILY PO Last administered on 01/19/19 08:35; Start 01/18/19 at 09:00 Multivitamins (Thera M Plus) 1 tab DAILY PO Last administered on 01/19/19 08:35; Start 01/18/19 at 09:00 Pantoprazole Sodium (Protonix) 40 mg DAILYAC PO Last administered on 01/19/19 08:30; Start 01/18/19 at 07:30 Vancomycin HCl (Vanco Per Pharmacy) 1 each PRN DAILY PRN MC SEE COMMENTS Last administered on 01/19/19 16:07; Start 01/17/19 at 17:45 Ceftriaxone Sodium (Rocephin) 1 gm Q24H IVP ; Start 01/18/19 at 13:00; Stop 01/18/19 at 10:38; Status DC Budesonide (Pulmicort) 0.5 mg RTBID NEB Last administered on 01/19/19 07:49; Start 01/17/19 at 20:00 Albuterol Sulfate (Ventolin Neb Soln) 2.5 mg RTQID NEB Last administered on 01/19/19 15:42; Start 01/17/19 at 20:00 Vancomycin HCl 750 mg/Sodium Chloride 250 ml @ 250 mls/hr 1X ONCE IV Last administered on 01/17/19 18:23; Start 01/17/19 at 18:00; Stop 01/17/19 at 18:59; Status DC Vancomycin HCl 1 gm/Sodium Chloride 250 ml @ 250 mls/hr Q24H IV Last administered on 01/19/19 16:30; Start 01/18/19 at 16:00 Carvedilol (Coreg) 3.125 mg BID PO Last administered on 01/18/19 08:50; Start 01/17/19 at 21:00; Stop 01/18/19 at 14:28; Status DC Vancomycin HCl (Vancomycin Trough Level) 1 each 1X ONCE MC Last administered on 01/19/19 15:30; Start 01/19/19 at 15:30; Stop 01/19/19 at 15:31; Status DC Simvastatin (Zocor) 20 mg HS PO Last administered on 01/18/19 21:16; Start 01/18/19 at 21:00 Heparin Sodium (Porcine) (Heparin Sodium) 5,000 unit Q12HR SQ Last administered on 01/19/19 08:38; Start 01/18/19 at 21:00 Carvedilol (Coreg) 3.125 mg BIDWMEALS PO Last administered on 01/19/19at 08:36; Start 01/18/19 at 17:00 Lactobacillus Rhamnosus (Culturelle) 1 cap BID PO Last administered on 01/19/19at 08:35; Start 01/18/19 at 21:00 Dextrose 500 ml @ 80 mls/hr 1X ONCE IV Last administered on 01/19/19at 11:01; Start 01/19/19 at 10:00; Stop 01/19/19 at 16:14; Status DC Active Scripts Active Tylenol (Acetaminophen) 325 Mg Tablet 650 Mg PO PRN Q6HRS PRN 30 Days Voltaren (Diclofenac Sodium) 100 Gm Gel..gram. 1 Roz TP BID 30 Days Vitamin B-12 (Cyanocobalamin (Vitamin B-12)) 1,000 Mcg Tablet 1,000 Mcg PO DAILY Reported Fluticasone Propionate Nasal [place] (Fluticasone Propionate) 16 Gm [place].susp 2 [place] NS DAILY Aspir-Low (Aspirin) 81 Mg Tablet.dr 1 Tab PO DAILY Doxazosin Mesylate 8 Mg Tablet 1 Tab PO HS Omeprazole 40 Mg Capsule.dr 1 Cap PO DAILY C-1000 (Ascorbic Acid) 1,000 Mg Tablet.er 1,000 Mg PO DAILY Claritin (Loratadine) 10 Mg Tablet 10 Mg PO DAILY Nitrostat (Nitroglycerin) 0.4 Mg Tab.subl 0.4 Mg SL PRN Q5MIN PRN Flonase Allergy Relief (Fluticasone Propionate) 9.9 Ml [place].susp 2 Sprays NS DAILY Calcium 500-Vit D3 600 Tablet (Calcium Carbonate/Vitamin D3) 1 Each Tablet 1 Each PO DAILY Singulair Tablet (Montelukast Sodium) 10 Mg Tablet 10 Mg PO HS Centrum Silver Tablet (Multivits-Min/Fa/Lycopene/Lut) 1 Each Tablet 1 Each PO DAILY Carvedilol (Carvedilol) 3.125 Mg Tablet 1 Tab PO BID Hydralazine Hcl 25 Mg Tablet 1 Tab PO BID Mirtazapine 7.5 Mg Tablet 7.5 Mg PO HS Simvastatin 20 Mg Tablet 20 Mg PO HS Symbicort 160-4.5 Mcg Inhaler (Budesonide/Formoterol Fumarate) 10.2 Gm Hfa.aer.ad 2 Inhaler IH BID Albuterol Sulfate Conc Neb Soln (Albuterol Sulfate) 2.5 Mg/0.5 Ml Vial.neb 2.5 Mg IH [id number] Allergies Allergies: Allergies Coded Allergies Type Severity Reaction Last Updated Verified Sulfa (Sulfonamide Antibiotics) Allergy Intermediate 09/08/18 Yes clopidogrel Allergy Intermediate 09/08/18 Yes valsartan Allergy Intermediate 09/08/18 Yes warfarin Allergy Intermediate 09/08/18 Yes ROS Review of System The patient denies any associated fevers, chills, headache, ear pain, rhinorrhea, sore throat, stiff neck, productive cough, chest pain, shortness of breath, back or flank pain, abdominal pain, nausea, vomiting, diarrhea, constipation, dysuria, rash, numbness, weakness, tingling, incontinence, difficulty ambulating, or diaphoresis. Physical Exam Physical Exam General: Well developed, well nourished, no acute distress, well appearing HEENT: Pupils equally round and reactive to light, EOMI, no discharge, normal conjunctiva Neck: Supple, no nuchal rigidity, no JVD, trachea midline, no tenderness Cardiac: RRR, no murmurs, no gallops, no rubs Chest/Lungs: CTAB, no wheeze, no rhonchi, no crackles Abdomen: soft, non-distended, no guarding, no peritoneal signs, non-tender Back: No tenderness Extremities: no edema, pulses intact, non-tender,capillary refill <3 sec bilateral upper and lower extremities, Neuro: Alert and oriented x 4, no focal deficits, normal speech Vitals Vitals: Vital Signs Date Time Temp Pulse Resp B/P (MAP) Pulse Ox O2 Delivery O2 Flow Rate FiO2 01/19/19 15:42 94 Room Air 01/19/19 15:00 98.2 70 16 134/66 (88) 98.2 Labs Labs Laboratory Tests Test 01/18/19 04:25 01/19/19 04:08 01/19/19 15:30 White Blood Count 5.2 x10^3/uL (4.0-11.0) 4.9 x10^3/uL (4.0-11.0) Red Blood Count 2.84 x10^6/uL (4.30-5.70) 2.93 x10^6/uL (4.30-5.70) Hemoglobin 8.1 g/dL (13.0-17.5) 8.4 g/dL (13.0-17.5) Hematocrit 24.2 % (39.0-53.0) 25.2 % (39.0-53.0) Mean Corpuscular Volume 85 fL (79-100) 86 fL (79-100) Mean Corpuscular Hemoglobin 29 pg (25-35) 29 pg (25-35) Mean Corpuscular Hemoglobin Concent 33 g/dL (31-37) 33 g/dL (31-37) Red Cell Distribution Width 16.6 % (11.5-14.5) 16.4 % (11.5-14.5) Platelet Count 189 x10^3/uL (140-400) 180 x10^3/uL (140-400) Neutrophils (%) (Auto) 55 % (31-73) 45 % (31-73) Lymphocytes (%) (Auto) 23 % (24-48) 28 % (24-48) Monocytes (%) (Auto) 8 % (0-9) 9 % (0-9) Eosinophils (%) (Auto) 14 % (0-3) 17 % (0-3) Basophils (%) (Auto) 1 % (0-3) 1 % (0-3) Neutrophils # (Auto) 2.9 x10^3/uL (1.8-7.7) 2.2 x10^3/uL (1.8-7.7) Lymphocytes # (Auto) 1.2 x10^3/uL (1.0-4.8) 1.4 x10^3/uL (1.0-4.8) Monocytes # (Auto) 0.4 x10^3/uL (0.0-1.1) 0.5 x10^3/uL (0.0-1.1) Eosinophils # (Auto) 0.7 x10^3/uL (0.0-0.7) 0.8 x10^3/uL (0.0-0.7) Basophils # (Auto) 0.0 x10^3/uL (0.0-0.2) 0.0 x10^3/uL (0.0-0.2) Sodium Level 147 mmol/L (136-145) 148 mmol/L (136-145) Potassium Level 3.9 mmol/L (3.5-5.1) 4.0 mmol/L (3.5-5.1) Chloride Level 111 mmol/L (98-107) 113 mmol/L (98-107) Carbon Dioxide Level 27 mmol/L (21-32) 27 mmol/L (21-32) Anion Gap 9 (6-14) 8 (6-14) Blood Urea Nitrogen 24 mg/dL (8-26) 20 mg/dL (8-26) Creatinine 1.8 mg/dL (0.7-1.3) 1.7 mg/dL (0.7-1.3) Estimated GFR (Cockcroft-Gault) 36.0 38.5 Glucose Level 94 mg/dL (70-99) 90 mg/dL (70-99) Calcium Level 8.3 mg/dL (8.5-10.1) 8.8 mg/dL (8.5-10.1) Creatine Kinase 46 U/L (39-308) Vitamin B12 Level 1461 pg/mL (247-911) Thyroid Stimulating Hormone (TSH) 1.390 uIU/mL (0.358-3.74) Vancomycin Level Trough 16.6 mcg/mL (10.0-20.0) Vancomycin Last Dose Date Unknown Vancomycin Last Dose Time Unknown Laboratory Tests Test 01/19/19 04:08 01/19/19 15:30 White Blood Count 4.9 x10^3/uL (4.0-11.0) Red Blood Count 2.93 x10^6/uL (4.30-5.70) Hemoglobin 8.4 g/dL (13.0-17.5) Hematocrit 25.2 % (39.0-53.0) Mean Corpuscular Volume 86 fL (79-100) Mean Corpuscular Hemoglobin 29 pg (25-35) Mean Corpuscular Hemoglobin Concent 33 g/dL (31-37) Red Cell Distribution Width 16.4 % (11.5-14.5) Platelet Count 180 x10^3/uL (140-400) Neutrophils (%) (Auto) 45 % (31-73) Lymphocytes (%) (Auto) 28 % (24-48) Monocytes (%) (Auto) 9 % (0-9) Eosinophils (%) (Auto) 17 % (0-3) Basophils (%) (Auto) 1 % (0-3) Neutrophils # (Auto) 2.2 x10^3/uL (1.8-7.7) Lymphocytes # (Auto) 1.4 x10^3/uL (1.0-4.8) Monocytes # (Auto) 0.5 x10^3/uL (0.0-1.1) Eosinophils # (Auto) 0.8 x10^3/uL (0.0-0.7) Basophils # (Auto) 0.0 x10^3/uL (0.0-0.2) Sodium Level 148 mmol/L (136-145) Potassium Level 4.0 mmol/L (3.5-5.1) Chloride Level 113 mmol/L (98-107) Carbon Dioxide Level 27 mmol/L (21-32) Anion Gap 8 (6-14) Blood Urea Nitrogen 20 mg/dL (8-26) Creatinine 1.7 mg/dL (0.7-1.3) Estimated GFR (Cockcroft-Gault) 38.5 Glucose Level 90 mg/dL (70-99) Calcium Level 8.8 mg/dL (8.5-10.1) Creatine Kinase 46 U/L (39-308) Vitamin B12 Level 1461 pg/mL (247-911) Thyroid Stimulating Hormone (TSH) 1.390 uIU/mL (0.358-3.74) Vancomycin Level Trough 16.6 mcg/mL (10.0-20.0) Vancomycin Last Dose Date Unknown Vancomycin Last Dose Time Unknown VIELKA ELLINGTON MD Jan 19, 2019 17:21
[2019-01-19 19:00] VITALS: BP 128/69
[2019-01-19] MEDS: SIMVASTATIN 20 MG TABLET PO SCH (20:56)
[2019-01-19] MEDS: MONTELUKAST SODIUM 10 MG TABLET. PO SCH (20:56)
[2019-01-19] MEDS: MIRTAZAPINE 7.5 MG TABLET. PO SCH (20:56)
[2019-01-19] MEDS: GABAPENTIN 100 MG CAPSULE. PO SCH (20:56)
[2019-01-19] MEDS: DOXAZOSIN MESYLATE 4 MG TABLET. PO SCH (20:57)
[2019-01-19 23:00] VITALS: BP 104/43
[2019-01-20 03:00] VITALS: BP 101/47
[2019-01-20 04:17] LABS: CALCIUM 8.6 mg/dL (8.5-10.1); CREATININE 1.9 mg/dL (0.7-1.3); GFR 33.9; POTASSIUM 3.6 mmol/L (3.5-5.1)
[2019-01-20 07:00] VITALS: BP 124/61
[2019-01-20] MEDS: PANTOPRAZOLE 40 MG TABLET.DR. PO SCH (07:59)
[2019-01-20] MEDS: ALBUTEROL SULFATE 2.5 MG/3 ML NEBU. NEB SCH ×4 (08:09→19:15)
[2019-01-20] MEDS: BUDESONIDE 0.5 MG/2 ML NEBU. NEB SCH ×2 (08:09→19:15)
[2019-01-20] MEDS: DICLOFENAC SODIUM 1% TOPICAL GEL 100GM TUBE. TP SCH ×2 (09:00→21:20)
--- NOTE | 2019-01-20 09:00 | PDOC ---
Infectious Disease Note Subjective Subjective Doing ok. Cough scattered No F/C/S/N/V/D/SOA/rash ROS ROS o/w neg Vital Sign Vital Signs Vital Signs Date Time Temp Pulse Resp B/P (MAP) Pulse Ox O2 Delivery O2 Flow Rate FiO2 01/20/19 08:11 91 Room Air 01/20/19 03:00 98.7 69 18 101/47 (65) 98.7 Physical Exam PHYSICAL EXAM GENERAL: The patient is alert, oriented x 3 and not in acute distress. In bed EYES: Pupils reacting to light. Conjunctivae pale. HEENT: The patient is wearing hearing aids. Throat is clear. NECK: Supple. JVP normal. LUNGS: Decreased breath sounds at bases. No wheezing. No rales. Occ squeak CARDIOVASCULAR: S1, S2 regular. ABDOMEN: Soft, nontender, no guarding, no rigidity. Bowel sounds present. EXTREMITIES: No edema. Lumbar spine, no tenderness. CENTRAL NERVOUS SYSTEM: Alert and oriented, anxious, has tremors that are chronic. Affect - appropriate Labs Lab Laboratory Tests Test 01/19/19 15:30 01/20/19 03:30 Vancomycin Level Trough 16.6 mcg/mL (10.0-20.0) Vancomycin Last Dose Date Unknown Vancomycin Last Dose Time Unknown Sodium Level 145 mmol/L (136-145) Potassium Level 3.6 mmol/L (3.5-5.1) Chloride Level 109 mmol/L (98-107) Carbon Dioxide Level 27 mmol/L (21-32) Anion Gap 9 (6-14) Blood Urea Nitrogen 18 mg/dL (8-26) Creatinine 1.9 mg/dL (0.7-1.3) Estimated GFR (Cockcroft-Gault) 33.9 Glucose Level 95 mg/dL (70-99) Calcium Level 8.6 mg/dL (8.5-10.1) Micro Microbiology 01/17/19 Blood Culture - Preliminary, Resulted NO GROWTH AFTER 1 DAY Objective Assessment Bacteremia 2/2 bottles 01/16 d/w [facility] this am 01/20 and still only a staph species Identified Compression fracture L3 CKD - stable Sulfa allergy - does not remember reaction but almost killed him Plan Plan of Care Cont Vanc F/u labs and cults JUANCARLOS STOCKTON MD Jan 20, 2019 09:00
--- NOTE | 2019-01-20 09:18 | PDOC ---
IM PROGRESS NOTES- Subjective Subjective No complaints of pain or dyspnea. Back pain is better. Objective Vitals/I&O Vital Signs Date Time Temp Pulse Resp B/P (MAP) Pulse Ox O2 Delivery O2 Flow Rate FiO2 01/20/19 08:11 91 Room Air 01/20/19 03:00 98.7 69 18 101/47 (65) 98.7 I & O 01/19/19 01/19/19 01/20/19 14:59 22:59 06:59 Intake Total 750 ml 0 ml Output Total 300 ml 200 ml Balance -300 ml 550 ml 0 ml Physical Exam Physical Exam General appearance - alert,well appearing, and in mild distress and oriented to person, place, and time Mental Status - alert, oriented to person, place, and time, affect appropriate to mood Head - normal Chest -decreased breath sounds at bases Heart - S1 and S2 normal Abdomen - soft, nontender, Neurological - alert and oriented, has tremors Musculoskeletal -patient is walking without any problems. Extremities - no pedal edema Skin - warm and dry Labs Laboratory Tests Test 01/19/19 15:30 01/20/19 03:30 Vancomycin Level Trough 16.6 mcg/mL (10.0-20.0) Vancomycin Last Dose Date Unknown Vancomycin Last Dose Time Unknown Sodium Level 145 mmol/L (136-145) Potassium Level 3.6 mmol/L (3.5-5.1) Chloride Level 109 mmol/L (98-107) H Carbon Dioxide Level 27 mmol/L (21-32) Anion Gap 9 (6-14) Blood Urea Nitrogen 18 mg/dL (8-26) Creatinine 1.9 mg/dL (0.7-1.3) H Estimated GFR (Cockcroft-Gault) 33.9 Glucose Level 95 mg/dL (70-99) Calcium Level 8.6 mg/dL (8.5-10.1) Laboratory Tests 01/20/19 03:30 Meds Current Medications Medications (Trade) Dose Ordered Sig/Juhi Route PRN Reason Start Time Stop Time Status Last Admin Dose Admin Vancomycin HCl (Vancomycin Trough Level) 1 each 1X ONCE MC 01/19/19 15:30 01/19/19 15:31 DC 01/19/19 15:30 Dextrose 500 ml @ 80 mls/hr 1X ONCE IV 01/19/19 10:00 01/19/19 16:14 DC 01/19/19 11:01 Gabapentin (Neurontin) 100 mg BID PO 01/19/19 21:00 01/19/19 20:56 Assessment Assessment 1. Gram-positive bacteremia in 2/2 bottles. The patient is asymptomatic. 2. Weakness. 3. Fall. 4. L3 compression fracture, acute on the CT scan of spine; however, the patient states he has no symptoms now. 5. Chronic obstructive pulmonary disease. 6. Dizziness. 7. Chronic kidney disease stage 3. 8. Coronary artery disease. 9. Hypertension. 10. 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 11. Anxiety. PLAN: Consult Dr. Melton for Infectious Disease evaluation and management. Continue IV vancomycin for now, but consider changing to Zyvox if the patient has renal insufficiency. Consult Dr. Bass for rehab evaluation and management because of the falls and weakness and recent likely compression fracture of the L3. The patient has lumbar spinal stenosis that is chronic, along with degenerative changes. For details, please refer to the orders. The patient's back pain is better today. Gram-positive bacteremia- continue IV vancomycin. Blood cultures 2 out of 2 positive for gram-positive bacteria staph- no more info.. Cultures drawn on 01/17 are negative so far L3 compression fracture- discussed with Dr. Bass. No intervention needed. Patient is walking well. Hypernatremia- sodium is 148. Encouraged to increase more fluid intake. I will give him 500 mL of IV D5W. COPD- continue breathing treatment. Hypokalemia- potassium is 3.6. Replace potassium. Tremors- patient feels that the tremors are getting worse. I'll consult neurologist. Previously patient has had the worsening tremors with breathing treatment also. Patient had problems with bedbugs at home and the family is trying to clean the house. Consult psychiatric social worker supervisor Plan Plan For more details regarding further plans, please refer to the orders. MARCELLUS FIERRO MD Jan 20, 2019 09:18
--- NOTE | 2019-01-20 09:23 | PDOC ---
PROGRESS NOTES Subjective Subjective He c/o cough. Objective Objective Vital Signs Date Time Temp Pulse Resp B/P (MAP) Pulse Ox O2 Delivery O2 Flow Rate FiO2 01/20/19 08:11 91 Room Air 01/20/19 03:00 98.7 69 18 101/47 (65) 98.7 Intake and Output 01/20/19 07:00 Intake Total 750 ml Output Total 500 ml Balance 250 ml Intake Oral 0 ml IV Total 750 ml Output Urine Total 500 ml # Voids 2 Physical Exam Physical Exam He is supine in bed and he continues to be independent with his mobility at roller walker level.He denies any low back pain. Assessment Assessment Problems Medical Problems: (1) Bacteremia Status: Acute (2) Chronic anemia Status: Acute (3) Chronic CHF Status: Acute (4) Compression fx, lumbar spine Status: Acute Plan Plan of Senior Living with home health follow up when medically stable. Comment Review of Relevant I have reviewed the following items tawnya (where applicable) has been applied. Labs Laboratory Tests Test 01/19/19 04:08 01/19/19 15:30 01/20/19 03:30 White Blood Count 4.9 x10^3/uL (4.0-11.0) Red Blood Count 2.93 x10^6/uL (4.30-5.70) Hemoglobin 8.4 g/dL (13.0-17.5) Hematocrit 25.2 % (39.0-53.0) Mean Corpuscular Volume 86 fL (79-100) Mean Corpuscular Hemoglobin 29 pg (25-35) Mean Corpuscular Hemoglobin Concent 33 g/dL (31-37) Red Cell Distribution Width 16.4 % (11.5-14.5) Platelet Count 180 x10^3/uL (140-400) Neutrophils (%) (Auto) 45 % (31-73) Lymphocytes (%) (Auto) 28 % (24-48) Monocytes (%) (Auto) 9 % (0-9) Eosinophils (%) (Auto) 17 % (0-3) Basophils (%) (Auto) 1 % (0-3) Neutrophils # (Auto) 2.2 x10^3/uL (1.8-7.7) Lymphocytes # (Auto) 1.4 x10^3/uL (1.0-4.8) Monocytes # (Auto) 0.5 x10^3/uL (0.0-1.1) Eosinophils # (Auto) 0.8 x10^3/uL (0.0-0.7) Basophils # (Auto) 0.0 x10^3/uL (0.0-0.2) Sodium Level 148 mmol/L (136-145) 145 mmol/L (136-145) Potassium Level 4.0 mmol/L (3.5-5.1) 3.6 mmol/L (3.5-5.1) Chloride Level 113 mmol/L (98-107) 109 mmol/L (98-107) Carbon Dioxide Level 27 mmol/L (21-32) 27 mmol/L (21-32) Anion Gap 8 (6-14) 9 (6-14) Blood Urea Nitrogen 20 mg/dL (8-26) 18 mg/dL (8-26) Creatinine 1.7 mg/dL (0.7-1.3) 1.9 mg/dL (0.7-1.3) Estimated GFR (Cockcroft-Gault) 38.5 33.9 Glucose Level 90 mg/dL (70-99) 95 mg/dL (70-99) Calcium Level 8.8 mg/dL (8.5-10.1) 8.6 mg/dL (8.5-10.1) Creatine Kinase 46 U/L (39-308) Vitamin B12 Level 1461 pg/mL (247-911) Thyroid Stimulating Hormone (TSH) 1.390 uIU/mL (0.358-3.74) Vancomycin Level Trough 16.6 mcg/mL (10.0-20.0) Vancomycin Last Dose Date Unknown Vancomycin Last Dose Time Unknown Laboratory Tests Test 01/19/19 15:30 01/20/19 03:30 Vancomycin Level Trough 16.6 mcg/mL (10.0-20.0) Vancomycin Last Dose Date Unknown Vancomycin Last Dose Time Unknown Sodium Level 145 mmol/L (136-145) Potassium Level 3.6 mmol/L (3.5-5.1) Chloride Level 109 mmol/L (98-107) Carbon Dioxide Level 27 mmol/L (21-32) Anion Gap 9 (6-14) Blood Urea Nitrogen 18 mg/dL (8-26) Creatinine 1.9 mg/dL (0.7-1.3) Estimated GFR (Cockcroft-Gault) 33.9 Glucose Level 95 mg/dL (70-99) Calcium Level 8.6 mg/dL (8.5-10.1) Microbiology 01/17/19 Blood Culture - Preliminary, Resulted NO GROWTH AFTER 2 DAYS Medications Current Medications Ceftriaxone Sodium (Rocephin) 1 gm 1X ONCE IVP Last administered on 01/17/19 13:21; Start 01/17/19 at 12:45; Stop 01/17/19 at 12:46; Status DC Vancomycin HCl 250 ml @ 250 mls/hr 1X ONCE IV Last administered on 01/17/19 13:22; Start 01/17/19 at 12:45; Stop 01/17/19 at 13:44; Status DC Acetaminophen (Tylenol) 650 mg PRN Q6HRS PRN PO MILD PAIN 1-3; Start 01/17/19 at 17:30 Aspirin (Ecotrin) 81 mg DAILY PO Last administered on 01/19/19 08:35; Start 01/18/19 at 09:00 Carvedilol (Coreg) 3.125 mg BIDWMEALS PO ; Start 01/17/19 at 18:00; Stop 01/17/19 at 18:00; Status DC Cyanocobalamin (Vitamin B-12) 1,000 mcg DAILY PO Last administered on 01/19/19 08:35; Start 01/18/19 at 09:00 Diclofenac Sodium (Voltaren) 1 roz BID TP Last administered on 01/19/19 21:04; Start 01/17/19 at 21:00 Fluticasone Propionate (Flonase) 2 spray DAILY NS Last administered on 01/19/19 08:31; Start 01/18/19 at 09:00 Hydralazine HCl (Apresoline) 25 mg BID PO Last administered on 01/19/19 20:57; Start 01/17/19 at 21:00 Mirtazapine (Remeron) 7.5 mg HS PO Last administered on 01/19/19 20:56; Start 01/17/19 at 21:00 Montelukast Sodium (Singulair) 10 mg HS PO Last administered on 01/19/19 20:56; Start 01/17/19 at 21:00 Nitroglycerin (Nitrostat) 0.4 mg PRN Q5MIN PRN SL CHEST PAIN; Start 01/17/19 at 17:30 Non-Formulary Medication (Albuterol Sulfate (Albuterol Sulfate Conc Neb Soln)) 2.5 mg [id number] IH ; Start 01/17/19 at 21:00; Status UNV Ascorbic Acid (Vitamin C) 1,000 mg DAILY PO Last administered on 01/19/19 08:35; Start 01/18/19 at 09:00 Non-Formulary Medication (Budesonide/ Formoterol Fumarate (Symbicort 160-4.5 Mcg Inhaler)) 2 inhaler BID IH ; Start 01/17/19 at 21:00; Status UNV Calcium/Vitamin D (Oscal D 500mg/ 200uts) 1 tab [id number] PO Last administered on 01/19/19 08:35; Start 01/18/19 at 08:00 Doxazosin Mesylate (Cardura) 8 mg HS PO Last administered on 01/19/19 20:57; Start 01/17/19 at 21:00 Fluticasone Propionate (Flonase) 2 spray DAILY NS ; Start 01/18/19 at 09:00; Stop 01/18/19 at 11:10; Status DC Cetirizine HCl (ZyrTEC) 10 mg DAILY PO Last administered on 01/19/19 08:35; Start 01/18/19 at 09:00 Multivitamins (Thera M Plus) 1 tab DAILY PO Last administered on 01/19/19 08:35; Start 01/18/19 at 09:00 Pantoprazole Sodium (Protonix) 40 mg DAILYAC PO Last administered on 01/20/19 07:59; Start 01/18/19 at 07:30 Vancomycin HCl (Vanco Per Pharmacy) 1 each PRN DAILY PRN MC SEE COMMENTS Last administered on 01/19/19 16:07; Start 01/17/19 at 17:45 Ceftriaxone Sodium (Rocephin) 1 gm Q24H IVP ; Start 01/18/19 at 13:00; Stop 01/18/19 at 10:38; Status DC Budesonide (Pulmicort) 0.5 mg RTBID NEB Last administered on 01/20/19at 08:09; Start 01/17/19 at 20:00 Albuterol Sulfate (Ventolin Neb Soln) 2.5 mg RTQID NEB Last administered on 01/20/19 08:09; Start 01/17/19 at 20:00 Vancomycin HCl 750 mg/Sodium Chloride 250 ml @ 250 mls/hr 1X ONCE IV Last administered on 01/17/19 18:23; Start 01/17/19 at 18:00; Stop 01/17/19 at 18:59; Status DC Vancomycin HCl 1 gm/Sodium Chloride 250 ml @ 250 mls/hr Q24H IV Last administered on 01/19/19 16:30; Start 01/18/19 at 16:00 Carvedilol (Coreg) 3.125 mg BID PO Last administered on 01/18/19 08:50; Start 01/17/19 at 21:00; Stop 01/18/19 at 14:28; Status DC Vancomycin HCl (Vancomycin Trough Level) 1 each 1X ONCE MC Last administered on 01/19/19 15:30; Start 01/19/19 at 15:30; Stop 01/19/19 at 15:31; Status DC Simvastatin (Zocor) 20 mg HS PO Last administered on 01/19/19 20:56; Start 01/18/19 at 21:00 Heparin Sodium (Porcine) (Heparin Sodium) 5,000 unit Q12HR SQ Last administered on 01/19/19 21:03; Start 01/18/19 at 21:00 Carvedilol (Coreg) 3.125 mg BIDWMEALS PO Last administered on 01/19/19 16:58; Start 01/18/19 at 17:00 Lactobacillus Rhamnosus (Culturelle) 1 cap BID PO Last administered on 01/19/19 20:56; Start 01/18/19 at 21:00 Dextrose 500 ml @ 80 mls/hr 1X ONCE IV Last administered on 01/19/19 11:01; Start 01/19/19 at 10:00; Stop 01/19/19 at 16:14; Status DC Gabapentin (Neurontin) 100 mg BID PO Last administered on 01/19/19 20:56; Start 01/19/19 at 21:00 Potassium Chloride (Klor-Con) 20 meq 1X ONCE PO ; Start 01/20/19 at 09:30; Stop 01/20/19 at 09:31 Active Scripts Active Tylenol (Acetaminophen) 325 Mg Tablet 650 Mg PO PRN Q6HRS PRN 30 Days Voltaren (Diclofenac Sodium) 100 Gm Gel..gram. 1 Roz TP BID 30 Days Vitamin B-12 (Cyanocobalamin (Vitamin B-12)) 1,000 Mcg Tablet 1,000 Mcg PO DAILY Reported Fluticasone Propionate Nasal Lerna (Fluticasone Propionate) 16 Gm Lerna.susp 2 Lerna NS DAILY Aspir-Low (Aspirin) 81 Mg Tablet.dr 1 Tab PO DAILY Doxazosin Mesylate 8 Mg Tablet 1 Tab PO HS Omeprazole 40 Mg Capsule.dr 1 Cap PO DAILY C-1000 (Ascorbic Acid) 1,000 Mg Tablet.er 1,000 Mg PO DAILY Claritin (Loratadine) 10 Mg Tablet 10 Mg PO DAILY Nitrostat (Nitroglycerin) 0.4 Mg Tab.subl 0.4 Mg SL PRN Q5MIN PRN Flonase Allergy Relief (Fluticasone Propionate) 9.9 Ml Lerna.susp 2 Sprays NS DAILY Calcium 500-Vit D3 600 Tablet (Calcium Carbonate/Vitamin D3) 1 Each Tablet 1 Each PO DAILY Singulair Tablet (Montelukast Sodium) 10 Mg Tablet 10 Mg PO HS Centrum Silver Tablet (Multivits-Min/Fa/Lycopene/Lut) 1 Each Tablet 1 Each PO DAILY Carvedilol (Carvedilol) 3.125 Mg Tablet 1 Tab PO BID Hydralazine Hcl 25 Mg Tablet 1 Tab PO BID Mirtazapine 7.5 Mg Tablet 7.5 Mg PO HS Simvastatin 20 Mg Tablet 20 Mg PO HS Symbicort 160-4.5 Mcg Inhaler (Budesonide/Formoterol Fumarate) 10.2 Gm Hfa.aer.ad 2 Inhaler IH BID Albuterol Sulfate Conc Neb Soln (Albuterol Sulfate) 2.5 Mg/0.5 Ml Vial.neb 2.5 Mg IH [id number] Vitals/I & O Vital Sign - Last 24 Hours 01/19/19 01/19/19 01/19/19 01/19/19 11:00 11:43 15:00 15:42 Temp 97.9 98.2 97.9 98.2 Pulse 67 70 Resp 16 16 B/P (MAP) 110/58 (75) 134/66 (88) Pulse Ox 94 94 94 O2 Delivery Room Air Room Air Room Air Room Air 01/19/19 01/19/19 01/19/19 01/19/19 16:58 19:00 20:00 20:14 Temp 98.4 98.4 Pulse 70 76 Resp 18 B/P (MAP) 134/66 128/69 (88) Pulse Ox 94 95 O2 Delivery Room Air Room Air Room Air 01/19/19 01/19/19 01/19/19 01/20/19 20:57 20:57 23:00 03:00 Temp 98.0 98.7 98.0 98.7 Pulse 76 76 70 69 Resp 18 18 B/P (MAP) 128/69 128/69 104/43 (63) 101/47 (65) Pulse Ox 92 90 O2 Delivery Room Air Room Air 01/20/19 08:11 Pulse Ox 91 O2 Delivery Room Air Intake and Output 01/19/19 01/19/19 01/20/19 15:00 23:00 07:00 Intake Total 750 ml 0 ml Output Total 300 ml 200 ml Balance -300 ml 550 ml 0 ml ARI PORTILLO MD Jan 20, 2019 09:23
[2019-01-20] MEDS ORDERED: POTASSIUM CHLORIDE 20 MEQ TABLET.ER. PO ONE (09:30)
[2019-01-20] MEDS: CETIRIZINE HCL 10 MG TABLET. PO SCH (09:38)
[2019-01-20] MEDS: CYANOCOBALAMIN (VITAMIN B-12) 1,000 MCG TABLET. PO SCH (09:38)
[2019-01-20] MEDS: MULTIVITAMIN with MINERAL TABLET. PO SCH (09:38)
[2019-01-20] MEDS: ASPIRIN ENTERIC COATED 81 MG TABLET.DR. PO SCH (09:38)
[2019-01-20] MEDS: GABAPENTIN 100 MG CAPSULE. PO SCH ×2 (09:38→21:21)
[2019-01-20] MEDS: CALCIUM CARB/VIT D3 500/200 TABLET. PO SCH (09:39)
[2019-01-20] MEDS: LACTOBACILLUS RHAMNOSUS GG 1 CAPSULE. PO SCH ×2 (09:39→21:21)
[2019-01-20] MEDS: ASCORBIC ACID 500 MG TABLET PO SCH (09:40)
[2019-01-20] MEDS: CARVEDILOL 3.125 MG TABLET. PO SCH ×2 (09:40→18:18)
[2019-01-20] MEDS: hydrALAZINE 25 MG TABLET PO SCH ×2 (09:41→20:59)
[2019-01-20] MEDS: FLUTICASONE 50MCG/NASAL SPRAY 16GM BOTTLE. NS SCH (09:41)
[2019-01-20] MEDS: HEPARIN for SUB-Q USE 5,000 UNIT/ML VIAL. SQ SCH ×2 (09:47→21:23)
[2019-01-20 11:00] VITALS: BP 130/64
--- NOTE | 2019-01-20 11:32 | NUR ---
SS following up with discharge planning. Per pt and family, pt was previously on services with [facility], ; fax [phone]. SS will continue to follow for discharge planning.
[2019-01-20] MEDS: VANCOMYCIN PER PHARMACY MC PRN (13:48)
[2019-01-20 15:00] VITALS: BP 122/59
--- NOTE | 2019-01-20 15:34 | EEG ---
DATE OF SERVICE: 01/19/2019 EEG REPORT EEG DATE: 01/19/2019 EEG NUMBER: [id number] OBJECTIVE: This is an 83-year-old male patient with history of abnormal movements. EEG was requested to evaluate cerebral activity and to help rule out seizure. METHODS: Twenty electrodes were applied according to the international 10-20 electrode placement system. EKG monitoring, hyperventilation, intermittent photic stimulation, monopolar and bipolar montages are routinely utilized. The record was obtained on a digital system with video monitoring. FINDINGS: 1. Background: The patient was recorded in the awake, drowsy, and sleep states. The overall background amplitude is 10-20 microvolts. A posterior dominant rhythm of 7-8 Hz is observed. 2. Abnormalities: No specific epileptiform discharge or electrographic seizure is seen. No diffuse slowing. 3. Activation: Hyperventilation was not performed because the patient was not following commands. Intermittent photic stimulation was performed with photic driving. IMPRESSION: This EEG is a mildly abnormal study for the awake, drowsy, and sleep states. The posterior dominant rhythm of 7-8 Hz is mildly slow for age. No focal, lateralizing, specific epileptiform discharge or electrographic seizure is seen. VIELKA ELLINGTON MD DR: RAMBO/lory JOB#: [id number] / [id number]
--- NOTE | 2019-01-20 16:01 | PDOC ---
PROGRESS NOTES Assessment Assessment Tremors, ET. Generalized weakness. Falls. Sepsis? Renal failure. CAD s/p stents placement. HTN. HLD. COPD. Anemia. L3 acute compression fracture. Degenerative spine disease. RECOMMENDATIONS/PLAN: Increase Neurontin to 100 mg tid. Treat medical diseases. OT/PT. Continue watching signs for PD. HISTORY OF THE PRESENT ILLNESS: This is an 83-year-old male patient with above medical diseases stating he has been having chronic tremors in his hands for over a year. He stated he did not have abnormal movements in head, but he was observed mild tremor like movements in his head at the time of neurology consultation. He said his LE were not affe cted. 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 He had a stent placed in 2011. His creatinine ranges from 1.6 to 2. History of Clostridium difficile colitis in 2013. History of old myocardial infarction, DVT in 2011, small bowel obstruction in 2011. CAD, 2 stents placed at in 2012. Carotid artery disease, GERD, hemorrhoids, hypertension, lumbar spinal stenosis of L4-L5, macular degeneration of left eye dry, osteoarthritis of multiple sites and history of hypotension. PAST SURGICAL HISTORY: Stents placed in 2012, 2 stents placed L5-S1 decompression with microdiskectomy and right L4-L5 decompression, partial colectomy, appendectomy, tonsillectomy and hemorrhoidectomy. ALLERGIES: CLARITHROMYCIN THAT CAUSES RASH, CLOPIDOGREL CAUSES RASH. CODEINE, CYCLOBENZAPRINE CAUSES ITCHING. LISINOPRIL AND PRASUGREL CAUSES NAUSEA, MODERATE TO SEVERE. SULFA, ANTIBIOTICS, TIZANIDINE, ITCHING, MILD TO MODERATE. FAMILY HISTORY: His father had coronary artery disease. Mother had coronary artery disease. SOCIAL HISTORY: Ex-cigarette smoker. Denied history of alcoholism or drug abuse. MEDICATIONS: Refer to MAR REVIEW OF SYSTEMS: Constitutional: No malnutrition, weight loss, cachexia. Head: No recent traumatic brain or head injury. Skin: No edema, or rash. Ear: No infection. Eyes: No vision loss or color blindness. Nose: No bleeding or purulent discharges. Hearing: Hearing decrease. Neck: No injury. Cardiac: CAD, s/p stents placement, HTN, HLD. Pulmonary: COPD. GI: No GI ulcer, GI bleeding. Urinary/genital: CKD. Endocrinologic: No cousin face, craniofacial dysmorphism. Skeletomuscular: Generalized weakness. Falls. Neurological: see HP. Psychiatric: Denies drug use/abuse. Otherwise, not [id number] review of systems. PHYSICAL EXAMINATION: General appearance is in subacute distress. HEENT: Normocephalic and nontraumatic. Eyes, nose, ears, and throat are unremarkable. Neck is supple. No lymphadenopathy. No crepitus. Cardiovascular: S1, S2, regular rate and rhythm. Pulmonary: Clear to auscultation bilaterally. Abdomen: Bowel sounds are positive. Extremities: No rash, lesions, or edema. No restriction of range of motion NEUROLOGICAL EXAMINATION: Awake. Partially oriented to time, place and person. PERRL. EOMI. CN: no focal findings. Muscle tone: within normal. Muscle strength: 4 DTR: 1-2 Plantar reflex: Neutral response bilaterally Gait: not examined in bed. Sensory exam: no abnormal findings. No cerebellar signs elicited. F-T-N test fine. Objective Objective Vital Signs Date Time Temp Pulse Resp B/P (MAP) Pulse Ox O2 Delivery O2 Flow Rate FiO2 01/20/19 15:52 97 Room Air 01/20/19 11:00 98.0 68 18 130/64 (86) 98.0 Intake and Output 01/20/19 06:59 Intake Total 750 ml Output Total 500 ml Balance 250 ml Intake Oral 0 ml IV Total 750 ml Output Urine Total 500 ml # Voids 2 Vitals Signs Vitals VS - Last 72 Hours, by Label Date Time Temp Pulse Resp B/P (MAP) Pulse Ox O2 Delivery O2 Flow Rate FiO2 01/20/19 15:52 97 Room Air 01/20/19 12:43 97 Room Air 01/20/19 11:00 98.0 68 18 130/64 (86) 93 Room Air 98.0 01/20/19 09:41 79 124/61 01/20/19 09:40 79 124/61 01/20/19 08:11 91 Room Air 01/20/19 08:00 Room Air 01/20/19 07:00 98.3 79 18 124/61 (82) 92 Room Air 98.3 01/20/19 03:00 98.7 69 18 101/47 (65) 90 Room Air 98.7 01/19/19 23:00 98.0 70 18 104/43 (63) 92 Room Air 98.0 01/19/19 20:57 76 128/69 01/19/19 20:57 76 128/69 01/19/19 20:14 95 Room Air 01/19/19 20:00 Room Air 01/19/19 19:00 98.4 76 18 128/69 (88) 94 Room Air 98.4 01/19/19 16:58 70 134/66 01/19/19 15:42 94 Room Air 01/19/19 15:00 98.2 70 16 134/66 (88) 94 Room Air 98.2 01/19/19 11:43 Room Air 01/19/19 11:00 97.9 67 16 110/58 (75) 94 Room Air 97.9 01/19/19 08:36 66 124/60 01/19/19 08:36 66 124/60 01/19/19 08:00 Room Air 01/19/19 07:51 Room Air 01/19/19 07:00 98.0 66 18 124/60 (81) 95 Room Air 98.0 Laboratory Laboratory Laboratory Tests Test 01/20/19 03:30 Sodium Level 145 mmol/L (136-145) Potassium Level 3.6 mmol/L (3.5-5.1) Chloride Level 109 mmol/L (98-107) Carbon Dioxide Level 27 mmol/L (21-32) Anion Gap 9 (6-14) Blood Urea Nitrogen 18 mg/dL (8-26) Creatinine 1.9 mg/dL (0.7-1.3) Estimated GFR (Cockcroft-Gault) 33.9 Glucose Level 95 mg/dL (70-99) Calcium Level 8.6 mg/dL (8.5-10.1) Microbiology 01/17/19 Blood Culture - Preliminary, Resulted NO GROWTH AFTER 3 DAYS Medication Medications Current Medications Gabapentin (Neurontin) 100 mg BID PO Last administered on 01/20/19at 09:38; Start 01/19/19 at 21:00 Potassium Chloride (Klor-Con) 20 meq 1X ONCE PO Last administered on 01/20/19at 10:12; Start 01/20/19 at 09:30; Stop 01/20/19 at 09:31; Status DC Comment Review of Relevant I have reviewed the following items tawnya (where applicable) has been applied. VIELKA ELLINGTON MD Jan 20, 2019 16:01
[2019-01-20] MEDS: VANCOMYCIN 1 GM in IV NORMAL SALINE 250ML 250 ML IV SCH (16:05)
[2019-01-20 19:00] VITALS: BP 110/59
[2019-01-20] MEDS: SIMVASTATIN 20 MG TABLET PO SCH (20:57)
[2019-01-20] MEDS: MONTELUKAST SODIUM 10 MG TABLET. PO SCH (20:57)
[2019-01-20] MEDS: MIRTAZAPINE 7.5 MG TABLET. PO SCH (20:57)
[2019-01-20] MEDS: DOXAZOSIN MESYLATE 4 MG TABLET. PO SCH (20:58)
[2019-01-20 23:00] VITALS: BP 122/52
[2019-01-21 03:00] VITALS: BP 98/48
[2019-01-21 07:00] VITALS: BP 107/58
[2019-01-21] MEDS: ALBUTEROL SULFATE 2.5 MG/3 ML NEBU. NEB SCH ×4 (07:20→19:57)
[2019-01-21] MEDS: BUDESONIDE 0.5 MG/2 ML NEBU. NEB SCH ×2 (07:20→19:57)
[2019-01-21] MEDS: PANTOPRAZOLE 40 MG TABLET.DR. PO SCH (07:29)
[2019-01-21] MEDS: CETIRIZINE HCL 10 MG TABLET. PO SCH (08:23)
[2019-01-21] MEDS: ASCORBIC ACID 500 MG TABLET PO SCH (08:23)
[2019-01-21] MEDS: CALCIUM CARB/VIT D3 500/200 TABLET. PO SCH (08:24)
[2019-01-21] MEDS: GABAPENTIN 100 MG CAPSULE. PO SCH ×2 (08:24→21:06)
[2019-01-21] MEDS: CARVEDILOL 3.125 MG TABLET. PO SCH ×2 (08:24→16:39)
[2019-01-21] MEDS: LACTOBACILLUS RHAMNOSUS GG 1 CAPSULE. PO SCH ×2 (08:24→21:06)
[2019-01-21] MEDS: hydrALAZINE 25 MG TABLET PO SCH ×2 (08:25→21:06)
[2019-01-21] MEDS: ASPIRIN ENTERIC COATED 81 MG TABLET.DR. PO SCH (08:25)
[2019-01-21] MEDS: MULTIVITAMIN with MINERAL TABLET. PO SCH (08:25)
[2019-01-21] MEDS: CYANOCOBALAMIN (VITAMIN B-12) 1,000 MCG TABLET. PO SCH (08:25)
[2019-01-21] MEDS: FLUTICASONE 50MCG/NASAL SPRAY 16GM BOTTLE. NS SCH (08:26)
[2019-01-21] MEDS: DICLOFENAC SODIUM 1% TOPICAL GEL 100GM TUBE. TP SCH ×2 (08:27→21:07)
[2019-01-21] MEDS: HEPARIN for SUB-Q USE 5,000 UNIT/ML VIAL. SQ SCH ×2 (08:36→21:15)
--- NOTE | 2019-01-21 09:22 | PDOC ---
Infectious Disease Note Subjective Subjective Doing ok. Cough still present No F/C/S/N/V/D/SOA/rash Vital Sign Vital Signs Vital Signs Date Time Temp Pulse Resp B/P (MAP) Pulse Ox O2 Delivery O2 Flow Rate FiO2 01/21/19 08:25 74 107/58 01/21/19 07:21 95 Room Air 01/21/19 07:00 98.6 17 98.6 Physical Exam PHYSICAL EXAM GENERAL: The patient is alert, oriented x 3 and not in acute distress. In bed EYES: Pupils reacting to light. Conjunctivae pale. HEENT: The patient is wearing hearing aids. Throat is clear. NECK: Supple. JVP normal. LUNGS: Decreased breath sounds at bases. No wheezing. No rales. Occ squeak CARDIOVASCULAR: S1, S2 regular. ABDOMEN: Soft, nontender, no guarding, no rigidity. Bowel sounds present. EXTREMITIES: No edema. Lumbar spine, no tenderness. CENTRAL NERVOUS SYSTEM: Alert and oriented, anxious, has tremors that are chronic. Affect - appropriate Labs Micro Microbiology 01/17/19 Blood Culture - Preliminary, Resulted NO GROWTH AFTER 1 DAY Objective Assessment Bacteremia 2/2 bottles 01/16 - Staph hominis - contamination cough but clear sputum - chronic COPD no anterior chest discomfort to suggest bronchitis Compression fracture L3 CKD - stable Sulfa allergy - does not remember reaction but almost killed him Plan Plan of Care [facility] to sign off JUANCARLOS STOCKTON MD Jan 21, 2019 09:22
--- NOTE | 2019-01-21 09:33 | PDOC3 ---
IM DISCHARGE SUMMARY Date of Admission Date of Admission Date of Admission: Jan 17, 2019 at 11:56 Date of Discharge Date of Discharge January 21, 2019 Primary Diagnosis Primary Diagnosis 1. Gram-positive bacteremia in 2/2 bottles. Staph hominis not sepsis. 2. Weakness. 3. Fall. 4. L3 compression fracture, acute on the CT scan of spine; however, the patient states he has no symptoms now. 5. Chronic obstructive pulmonary disease. 6. Dizziness. 7. Chronic kidney disease stage 3. 8. Coronary artery disease. 9. Hypertension. 10. 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 11. Anxiety. Consults Consults Philippe Bass MD; Kalin Castrejon MD; Jaclyn Llanos MD Brief hospital course Brief hospital course This 83-year-old male was seen in the Emergency Room day before yesterday because of weakness and fall. He had a normal lactic acid level, normal white count and a pending blood culture that showed gram-positive cocci in clusters in both bottles. Because of that, the patient was called back to the Emergency Room and has been admitted for further evaluation and management. The patient denies any fever, chills, cold, cough, congestion, dyspnea recently. He has occasional cough from his COPD, but responds well to breathing treatment. Sputum is clear. The patient 2 days ago was also noted to have acute L3 vertebral compression fracture, but the patient states that 2 days ago, he had back pain, but now he has no back pain and he is feeling better. He denies any nausea, vomiting, diarrhea. The patient has been on steroids for quite extended periods for exacerbation of COPD, but currently he is off prednisone at this time. He was on prednisone 10 mg recently. For more details regarding the past history, family history, social history, surgical history and other details, please refer to History and Physical. Consult Dr. Castrejon for Infectious Disease evaluation and management. Continue IV vancomycin for now, but consider changing to Zyvox if the patient has renal insufficiency. Consult Dr. Bass for rehab evaluation and management because of the falls and weakness and recent likely compression fracture of the L3. The patient has lumbar spinal stenosis that is chronic, along with degenerative changes. For details, please refer to the orders. The patient's back pain is better today. Gram-positive bacteremia-2 out of 2 are positive for staph hominis. This is a contaminant. IV vancomycin is discontinued. Cultures drawn on 01/17 are negative so far No evidence of sepsis. L3 compression fracture- discussed with Dr. Bass. No intervention needed. Patient is walking well. Hypernatremia- sodium is 148. Encouraged to increase more fluid intake. I will give him 500 mL of IV D5W. COPD- continue breathing treatment. Patient is coughing noted I'll give him 1 dose of IV Solu-Medrol and restart his prednisone initially at a higher dose and then continue as outpatient. He'll be discharged on prednisone 30 mg daily for 3 days, 20 mg daily for 3 days and 10 mg daily for 3 days. Hypokalemia- potassium is 3.6. Replace potassium. Tremors- patient feels that the tremors are getting worse. I'll consult neurologist. Previously patient has had the worsening tremors with breathing treatment also. Started on gabapentin. Patient had problems with bedbugs at home and the family is trying to clean the house. Consult social human services assistants Discharge patient to home with home health services. Patient does not want to go to a nursing facility. Medications Current Medications Medications (Trade) Dose Ordered Sig/Juhi Route PRN Reason Start Time Stop Time Status Last Admin Dose Admin Potassium Chloride (Klor-Con) 20 meq 1X ONCE PO 01/20/19 09:30 01/20/19 09:31 DC 01/20/19 10:12 Gabapentin (Neurontin) 100 mg TID PO 01/20/19 21:00 01/21/19 08:24 Medications reviewed and reconciled for discharge. Allergy Allergies Coded Allergies Type Severity Reaction Last Updated Verified Sulfa (Sulfonamide Antibiotics) Allergy Intermediate 09/08/18 Yes clopidogrel Allergy Intermediate 09/08/18 Yes valsartan Allergy Intermediate 09/08/18 Yes warfarin Allergy Intermediate 09/08/18 Yes Follow up in 5 days. DISPOSITION: Home health services Comments Discharge Management - 35 minutes. For other details please refer to discharge instructions MARCELLUS FIERRO MD Jan 21, 2019 09:33
[2019-01-21] MEDS ORDERED: GABA-585 PO (09:37)
[2019-01-21] MEDS ORDERED: ALBU2.5V8 NEB (09:37)
--- NOTE | 2019-01-21 09:41 | SNU/HH DC ---
DISCHARGE WITH HOME HEALTH DISCHARGE INFORMATION: Final Diagnosis: Problems Medical Problems: (1) Bacteremia Status: Acute (2) Chronic anemia Status: Acute (3) Chronic CHF Status: Acute (4) Compression fx, lumbar spine Status: Acute Condition on Discharge: Stable HOME HEALTH: Face to Face: I certify this patient is under my care and that I, or a nurse practitioner or physician's assistant refinery operator working with me, had a face to face encounter that meets the physician face to face encounter requirements with this patient on January 21, 2019 Medical Complications: COPD RN For Eval/Treatment: Yes Pt Meets Homebound Status: Unsteady balance w/ amb, POST DISCHARGE ORDERS: Activity Instructions for Disc: Activity as tolerated (walk with walker) Weight Bearing Status after Di: As tolerated DIET AFTER DISCHARGE: Cardiac Wound/Incision Care: No wound care needed FOLLOW-UP: PCP to follow Home Health: Yes Follow up with: Dr. MARCELLUS Fierro in 5 days TREATMENT/EQUIPMENT ORDERS: Adaptive Equipment Issued: None Discharge Respiratory Equipmen: Nebulizer CERTIFICATION STATEMENT: Certification Statement: Certification Statement: Based on the above finding, I certify that this patient is confined to the home and needs intermittent detention care, physical therapy and/or speech therapy, or continues to need occupational therapy.~ This patient is under my care, and I have initiated the establishment of the plan of care.~ This patient will be followed by myself or a community physician who will periodically review the plan of care. Home Meds Active Scripts Cefdinir (CEFDINIR) 300 Mg Capsule, 1 CAP PO BID for bronchitis, #8 CAP Prov:MARCELLUS FIERRO MD 01/25/19 Prednisone (PREDNISONE ) 10 Mg Tablet, 10 MG PO UD for COPD for 9 Days, #18 TAB 0 Refills Take 3 tablets by mouth daily for 3 days, then take 2 tablets by mouth daily for 3 days, then take 1 tablets by mouth daily for 3 days. Prov:MARCELLUS FIERRO MD 01/21/19 Gabapentin (GABAPENTIN ) 100 Mg Capsule, 100 MG PO TID for tremors, #90 CAP 1 Refill Prov:MARCELLUS FIERRO MD 01/21/19 Albuterol Sulfate (Proair Hfa) 8.5 Gm Hfa.aer.ad, 2.5 MG NEB RTQID for COPD, #1 INHALER Prov:MARCELLUS FIERRO MD 01/21/19 Acetaminophen (TYLENOL) 325 Mg Tablet, 650 MG PO PRN Q6HRS PRN for MILD PAIN for 30 Days, #120 TAB Prov:MARCELLUS FIERRO MD 05/11/18 Diclofenac Sodium (VOLTAREN) 100 Gm Gel..gram., 1 SONAM TP BID for arthritis for 30 Days, #100 GM 1 Refill Prov:MARCELLUS FIERRO MD 05/11/18 Cyanocobalamin (Vitamin B-12) (VITAMIN B-12) 1,000 Mcg Tablet, 1000 MCG PO DAILY, #30 TAB Prov:MARCELLUS FIERRO MD 03/24/14 Reported Medications Fluticasone Propionate (FLUTICASONE PROPIONATE NASAL SPRAY) 16 Gm [place].susp, 2 SPRAY NS DAILY for ALLERGIES, #1 INHALER 11 Refills 01/17/19 Aspirin (ASPIR-LOW) 81 Mg Tablet.dr, 1 TAB PO DAILY for CIRCULATION, #30 TAB 3 Refills 01/17/19 Doxazosin Mesylate (DOXAZOSIN MESYLATE) 8 Mg Tablet, 1 TAB PO HS for PROSTATE, #30 TAB 5 Refills 01/17/19 Omeprazole (OMEPRAZOLE) 40 Mg Capsule.dr, 1 CAP PO DAILY for GERD, #30 CAP 3 Refills 01/17/19 Ascorbic Acid (C-1000) 1,000 Mg Tablet.er, 1000 MG PO DAILY for SUPPLEMENT, TAB.SR 09/09/18 Loratadine (CLARITIN) 10 Mg Tablet, 10 MG PO DAILY for ALLERGY, TAB 09/09/18 Nitroglycerin (NITROSTAT) 0.4 Mg Tab.subl, 0.4 MG SL PRN Q5MIN PRN for CHEST PAIN, BOTTLE 09/09/18 Fluticasone Propionate (Flonase Allergy Relief) 9.9 Ml [place].susp, 2 SPRAYS NS DAILY for ALLERGY PREVENTION, BOTTLE 09/09/18 Calcium Carbonate/Vitamin D3 (Calcium 500-Vit D3 600 Tablet) 1 Each Tablet, 1 EACH PO DAILY for SUPPLEMENT, TAB 09/09/18 Montelukast Sodium (SINGULAIR TABLET ) 10 Mg Tablet, 10 MG PO HS for FOR THMA, #30 TAB 0 Refills 03/20/14 Multivits-Min/Fa/Lycopene/Lut (CENTRUM SILVER TABLET) 1 Each Tablet, 1 EACH PO DAILY 12/7/14 Carvedilol (CARVEDILOL ) 3.125 Mg Tablet, 1 TAB PO BID, #60 TAB 5 Refills 03/20/14 Hydralazine Hcl (HYDRALAZINE HCL) 25 Mg Tablet, 1 TAB PO BID, #60 TAB 5 Refills 03/20/14 Mirtazapine (MIRTAZAPINE) 7.5 Mg Tablet, 7.5 MG PO HS 08/03/13 Simvastatin (SIMVASTATIN) 20 Mg Tablet, 20 MG PO HS 08/03/13 Budesonide/Formoterol Fumarate (SYMBICORT 160-4.5 MCG INHALER) 10.2 Gm Hfa.aer.ad, 2 INHALER IH BID 08/03/13 Albuterol Sulfate (ALBUTEROL SULFATE CONC NEB SOLN) 2.5 Mg/0.5 Ml Vial.neb, 2.5 MG IH [id number] 08/03/13 MARCELLUS FIERRO MD Jan 21, 2019 09:41
[2019-01-21] MEDS ORDERED: PRED-220 PO (10:18)
--- NOTE | 2019-01-21 10:29 | PDOC ---
PROGRESS NOTES Subjective Subjective He c/o cough with greenish sputum and wants to try mucinex. Objective Objective Vital Signs Date Time Temp Pulse Resp B/P (MAP) Pulse Ox O2 Delivery O2 Flow Rate FiO2 01/21/19 08:25 74 107/58 01/21/19 07:21 95 Room Air 01/21/19 07:00 98.6 17 98.6 Intake and Output 01/21/19 07:00 Intake Total 300 ml Output Total 1100 ml Balance -800 ml Intake Oral 300 ml Output Urine Total 1100 ml Physical Exam Physical Exam He is alert,supine in bed and he continues to be independent with his mobility at roller walker level. Assessment Assessment Problems Medical Problems: (1) Bacteremia Status: Acute (2) Chronic anemia Status: Acute (3) Chronic CHF Status: Acute (4) Compression fx, lumbar spine Status: Acute Plan Plan of Care To let him try mucinex. Comment Review of Relevant I have reviewed the following items tawnya (where applicable) has been applied. Labs Laboratory Tests Test 01/19/19 15:30 01/20/19 03:30 Vancomycin Level Trough 16.6 mcg/mL (10.0-20.0) Vancomycin Last Dose Date Unknown Vancomycin Last Dose Time Unknown Sodium Level 145 mmol/L (136-145) Potassium Level 3.6 mmol/L (3.5-5.1) Chloride Level 109 mmol/L (98-107) Carbon Dioxide Level 27 mmol/L (21-32) Anion Gap 9 (6-14) Blood Urea Nitrogen 18 mg/dL (8-26) Creatinine 1.9 mg/dL (0.7-1.3) Estimated GFR (Cockcroft-Gault) 33.9 Glucose Level 95 mg/dL (70-99) Calcium Level 8.6 mg/dL (8.5-10.1) Microbiology 01/17/19 Blood Culture - Preliminary, Resulted NO GROWTH AFTER 3 DAYS Medications Current Medications Ceftriaxone Sodium (Rocephin) 1 gm 1X ONCE IVP Last administered on 01/17/19at 13:21; Start 01/17/19 at 12:45; Stop 01/17/19 at 12:46; Status DC Vancomycin HCl 250 ml @ 250 mls/hr 1X ONCE IV Last administered on 01/17/19at 13:22; Start 01/17/19 at 12:45; Stop 01/17/19 at 13:44; Status DC Acetaminophen (Tylenol) 650 mg PRN Q6HRS PRN PO MILD PAIN 1-3 Last administered on 01/20/19 14:21; Start 01/17/19 at 17:30 Aspirin (Ecotrin) 81 mg DAILY PO Last administered on 01/21/19 08:25; Start 01/18/19 at 09:00 Carvedilol (Coreg) 3.125 mg BIDWMEALS PO ; Start 01/17/19 at 18:00; Stop 01/17/19 at 18:00; Status DC Cyanocobalamin (Vitamin B-12) 1,000 mcg DAILY PO Last administered on 01/21/19 08:25; Start 01/18/19 at 09:00 Diclofenac Sodium (Voltaren) 1 roz BID TP Last administered on 01/21/19 08:27; Start 01/17/19 at 21:00 Fluticasone Propionate (Flonase) 2 spray DAILY NS Last administered on 01/21/19 08:26; Start 01/18/19 at 09:00 Hydralazine HCl (Apresoline) 25 mg BID PO Last administered on 01/21/19 0 8:25; Start 01/17/19 at 21:00 Mirtazapine (Remeron) 7.5 mg HS PO Last administered on 01/20/19 20:57; Start 01/17/19 at 21:00 Montelukast Sodium (Singulair) 10 mg HS PO Last administered on 01/20/19 20:57; Start 01/17/19 at 21:00 Nitroglycerin (Nitrostat) 0.4 mg PRN Q5MIN PRN SL CHEST PAIN; Start 01/17/19 at 17:30 Non-Formulary Medication (Albuterol Sulfate (Albuterol Sulfate Conc Neb Soln)) 2.5 mg [id number] IH ; Start 01/17/19 at 21:00; Status UNV Ascorbic Acid (Vitamin C) 1,000 mg DAILY PO Last administered on 01/21/19 08:23; Start 01/18/19 at 09:00 Non-Formulary Medication (Budesonide/ Formoterol Fumarate (Symbicort 160-4.5 Mcg Inhaler)) 2 inhaler BID IH ; Start 01/17/19 at 21:00; Status UNV Calcium/Vitamin D (Oscal D 500mg/ 200uts) 1 tab [id number] PO Last administered on 01/21/19 08:24; Start 01/18/19 at 08:00 Doxazosin Mesylate (Cardura) 8 mg HS PO Last administered on 01/20/19 20:58; Start 01/17/19 at 21:00 Fluticasone Propionate (Flonase) 2 spray DAILY NS ; Start 01/18/19 at 09:00; Stop 01/18/19 at 11:10; Status DC Cetirizine HCl (ZyrTEC) 10 mg DAILY PO Last administered on 01/21/19 08:23; Start 01/18/19 at 09:00 Multivitamins (Thera M Plus) 1 tab DAILY PO Last administered on 01/21/19 08:25; Start 01/18/19 at 09:00 Pantoprazole Sodium (Protonix) 40 mg DAILYAC PO Last administered on 01/21/19 07:29; Start 01/18/19 at 07:30 Vancomycin HCl (Vanco Per Pharmacy) 1 each PRN DAILY PRN MC SEE COMMENTS Last administered on 01/20/19 13:48; Start 01/17/19 at 17:45; Stop 01/21/19 at 09:22; Status DC Ceftriaxone Sodium (Rocephin) 1 gm Q24H IVP ; Start 01/18/19 at 13:00; Stop 01/18/19 at 10:38; Status DC Budesonide (Pulmicort) 0.5 mg RTBID NEB Last administered on 01/21/19 07:20; Start 01/17/19 at 20:00 Albuterol Sulfate (Ventolin Neb Soln) 2.5 mg RTQID NEB Last administered on 01/21/19 07:20; Start 01/17/19 at 20:00 Vancomycin HCl 750 mg/Sodium Chloride 250 ml @ 250 mls/hr 1X ONCE IV Last administered on 01/17/19 18:23; Start 01/17/19 at 18:00; Stop 01/17/19 at 18:59; Status DC Vancomycin HCl 1 gm/Sodium Chloride 250 ml @ 250 mls/hr Q24H IV Last administered on 01/20/19at 16:05; Start 01/18/19 at 16:00; Stop 01/21/19 at 09:22; Status DC Carvedilol (Coreg) 3.125 mg BID PO Last administered on 01/18/19 08:50; Start 01/17/19 at 21:00; Stop 01/18/19 at 14:28; Status DC Vancomycin HCl (Vancomycin Trough Level) 1 each 1X ONCE MC Last administered on 01/19/19 15:30; Start 01/19/19 at 15:30; Stop 01/19/19 at 15:31; Status DC Simvastatin (Zocor) 20 mg HS PO Last administered on 01/20/19 20:57; Start 01/18/19 at 21:00 Heparin Sodium (Porcine) (Heparin Sodium) 5,000 unit Q12HR SQ Last administered on 01/21/19 08:36; Start 01/18/19 at 21:00 Carvedilol (Coreg) 3.125 mg BIDWMEALS PO Last administered on 01/21/19 08:24; Start 01/18/19 at 17:00 Lactobacillus Rhamnosus (Culturelle) 1 cap BID PO Last administered on 01/21/19 08:24; Start 01/18/19 at 21:00 Dextrose 500 ml @ 80 mls/hr 1X ONCE IV Last administered on 01/19/19 11:01; Start 01/19/19 at 10:00; Stop 01/19/19 at 16:14; Status DC Gabapentin (Neurontin) 100 mg BID PO Last administered on 01/20/19 09:38; Start 01/19/19 at 21:00; Stop 01/20/19 at 16:03; Status DC Potassium Chloride (Klor-Con) 20 meq 1X ONCE PO Last administered on 01/20/19 10:12; Start 01/20/19 at 09:30; Stop 01/20/19 at 09:31; Status DC Gabapentin (Neurontin) 100 mg TID PO Last administered on 01/21/19 08:24; Start 01/20/19 at 21:00 Active Scripts Active Prednisone (Prednisone) 10 Mg Tablet 10 Mg PO UD 9 Days Take 3 tablets by mouth daily for 3 days, then take 2 tablets by mouth daily for 3 days, then take 1 tablets by mouth daily for 3 days. Gabapentin (Gabapentin) 100 Mg Capsule 100 Mg PO TID Proair Hfa (Albuterol Sulfate) 8.5 Gm Hfa.aer.ad 2.5 Mg NEB RTQID Tylenol (Acetaminophen) 325 Mg Tablet 650 Mg PO PRN Q6HRS PRN 30 Days Voltaren (Diclofenac Sodium) 100 Gm Gel..gram. 1 Roz TP BID 30 Days Vitamin B-12 (Cyanocobalamin (Vitamin B-12)) 1,000 Mcg Tablet 1,000 Mcg PO DAILY Reported Fluticasone Propionate Nasal [place] (Fluticasone Propionate) 16 Gm [place].susp 2 [place] NS DAILY Aspir-Low (Aspirin) 81 Mg Tablet.dr 1 Tab PO DAILY Doxazosin Mesylate 8 Mg Tablet 1 Tab PO HS Omeprazole 40 Mg Capsule.dr 1 Cap PO DAILY C-1000 (Ascorbic Acid) 1,000 Mg Tablet.er 1,000 Mg PO DAILY Claritin (Loratadine) 10 Mg Tablet 10 Mg PO DAILY Nitrostat (Nitroglycerin) 0.4 Mg Tab.subl 0.4 Mg SL PRN Q5MIN PRN Flonase Allergy Relief (Fluticasone Propionate) 9.9 Ml [place].susp 2 Sprays NS DAILY Calcium 500-Vit D3 600 Tablet (Calcium Carbonate/Vitamin D3) 1 Each Tablet 1 Each PO DAILY Singulair Tablet (Montelukast Sodium) 10 Mg Tablet 10 Mg PO HS Centrum Silver Tablet (Multivits-Min/Fa/Lycopene/Lut) 1 Each Tablet 1 Each PO DAILY Carvedilol (Carvedilol) 3.125 Mg Tablet 1 Tab PO BID Hydralazine Hcl 25 Mg Tablet 1 Tab PO BID Mirtazapine 7.5 Mg Tablet 7.5 Mg PO HS Simvastatin 20 Mg Tablet 20 Mg PO HS Symbicort 160-4.5 Mcg Inhaler (Budesonide/Formoterol Fumarate) 10.2 Gm Hfa.aer.ad 2 Inhaler IH BID Albuterol Sulfate Conc Neb Soln (Albuterol Sulfate) 2.5 Mg/0.5 Ml Vial.neb 2.5 Mg IH [id number] Vitals/I & O Vital Sign - Last 24 Hours 01/20/19 01/20/19 01/20/19 01/20/19 11:00 12:43 15:00 15:52 Temp 98.0 98.8 98.0 98.8 Pulse 68 70 Resp 18 18 B/P (MAP) 130/64 (86) 122/59 (80) Pulse Ox 93 97 95 97 O2 Delivery Room Air Room Air Room Air Room Air 01/20/19 01/20/19 01/20/19 01/20/19 18:18 19:00 19:18 20:00 Temp 98.4 98.4 Pulse 70 73 Resp 20 B/P (MAP) 122/59 110/59 (76) Pulse Ox 94 97 O2 Delivery Room Air Room Air Room Air 01/20/19 01/20/19 01/20/19 01/21/19 20:58 20:59 23:00 03:00 Temp 98.4 98.6 98.4 98.6 Pulse 72 72 66 70 Resp 20 20 B/P (MAP) 112/62 112/62 122/52 (75) 98/48 (65) Pulse Ox 96 90 O2 Delivery Room Air Room Air 01/21/19 01/21/19 01/21/19 01/21/19 07:00 07:21 08:24 08:25 Temp 98.6 98.6 Pulse 74 74 74 Resp 17 B/P (MAP) 107/58 (74) 107/58 107/58 Pulse Ox 91 95 O2 Delivery Room Air Room Air Intake and Output 01/20/19 01/20/19 01/21/19 15:00 23:00 07:00 Intake Total 300 ml 0 ml Output Total 1100 ml Balance -800 ml 0 ml ARI PORTILLO MD Jan 21, 2019 10:29
[2019-01-21] MEDS ORDERED: methylPREDNISolone SOD SUCC PF 40 MG/ML VIAL. IV ONE ×2 (10:45→15:45)
[2019-01-21 11:00] VITALS: BP 119/64
[2019-01-21 15:00] VITALS: BP 140/60
--- NOTE | 2019-01-21 16:08 | PDOC ---
PROGRESS NOTES Assessment Assessment Tremors, ET. Generalized weakness. Falls. Sepsis? Renal failure. CAD s/p stents placement. HTN. HLD. COPD. Anemia. L3 acute compression fracture. Degenerative spine disease. RECOMMENDATIONS/PLAN: Increase Neurontin to 200 mg tid. Treat medical diseases. OT/PT. Continue watching signs for PD. HISTORY OF THE PRESENT ILLNESS: This is an 83-year-old male patient with above medical diseases stating he has been having chronic tremors in his hands for over a year. He stated he did not have abnormal movements in head, but he was observed mild tremor like movements in his head at the time of neurology consultation. He said his LE were not affe cted. 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 He had a stent placed in 2011. His creatinine ranges from 1.6 to 2. History of Clostridium difficile colitis in 2013. History of old myocardial infarction, DVT in 2011, small bowel obstruction in 2011. CAD, 2 stents placed at in 2012. Carotid artery disease, GERD, hemorrhoids, hypertension, lumbar spinal stenosis of L4-L5, macular degeneration of left eye dry, osteoarthritis of multiple sites and history of hypotension. PAST SURGICAL HISTORY: Stents placed in 2012, 2 stents placed L5-S1 decompression with microdiskectomy and right L4-L5 decompression, partial colectomy, appendectomy, tonsillectomy and hemorrhoidectomy. ALLERGIES: CLARITHROMYCIN THAT CAUSES RASH, CLOPIDOGREL CAUSES RASH. CODEINE, CYCLOBENZAPRINE CAUSES ITCHING. LISINOPRIL AND PRASUGREL CAUSES NAUSEA, MODERATE TO SEVERE. SULFA, ANTIBIOTICS, TIZANIDINE, ITCHING, MILD TO MODERATE. FAMILY HISTORY: His father had coronary artery disease. Mother had coronary artery disease. SOCIAL HISTORY: Ex-cigarette smoker. Denied history of alcoholism or drug abuse. MEDICATIONS: Refer to MAR REVIEW OF SYSTEMS: Constitutional: No malnutrition, weight loss, cachexia. Head: No recent traumatic brain or head injury. Skin: No edema, or rash. Ear: No infection. Eyes: No vision loss or color blindness. Nose: No bleeding or purulent discharges. Hearing: Hearing decrease. Neck: No injury. Cardiac: CAD, s/p stents placement, HTN, HLD. Pulmonary: COPD. GI: No GI ulcer, GI bleeding. Urinary/genital: CKD. Endocrinologic: No cousin face, craniofacial dysmorphism. Skeletomuscular: Generalized weakness. Falls. Neurological: see HP. Psychiatric: Denies drug use/abuse. Otherwise, not [id number] review of systems. PHYSICAL EXAMINATION: General appearance is in subacute distress. HEENT: Normocephalic and nontraumatic. Eyes, nose, ears, and throat are unremarkable. Neck is supple. No lymphadenopathy. No crepitus. Cardiovascular: S1, S2, regular rate and rhythm. Pulmonary: Clear to auscultation bilaterally. Abdomen: Bowel sounds are positive. Extremities: No rash, lesions, or edema. No restriction of range of motion NEUROLOGICAL EXAMINATION: Drowsiness but arousable. Partially oriented to time, place and person. PERRL. EOMI. CN: no focal findings. Muscle tone: within normal. Muscle strength: 4 DTR: 1-2 Plantar reflex: Neutral response bilaterally Gait: not examined in bed. Sensory exam: no abnormal findings. No cerebellar signs elicited. F-T-N test fine. Objective Objective Vital Signs Date Time Temp Pulse Resp B/P (MAP) Pulse Ox O2 Delivery O2 Flow Rate FiO2 01/21/19 15:23 95 Room Air 01/21/19 15:00 98.0 61 17 140/60 (86) 98.0 Intake and Output 01/21/19 07:00 Intake Total 300 ml Output Total 1100 ml Balance -800 ml Intake Oral 300 ml Output Urine Total 1100 ml Vitals Signs Vitals VS - Last 72 Hours, by Label Date Time Temp Pulse Resp B/P (MAP) Pulse Ox O2 Delivery O2 Flow Rate FiO2 01/21/19 15:23 95 Room Air 01/21/19 15:00 98.0 61 17 140/60 (86) 94 Room Air 98.0 01/21/19 11:00 98.6 69 18 119/64 (82) 95 Room Air 98.6 01/21/19 10:59 95 Room Air 01/21/19 08:25 74 107/58 01/21/19 08:24 74 107/58 01/21/19 07:21 95 Room Air 01/21/19 07:00 98.6 74 17 107/58 (74) 91 Room Air 98.6 01/21/19 03:00 98.6 70 20 98/48 (65) 90 Room Air 98.6 01/20/19 23:00 98.4 66 20 122/52 (75) 96 Room Air 98.4 01/20/19 20:59 72 112/62 01/20/19 20:58 72 112/62 01/20/19 20:00 Room Air 01/20/19 19:18 97 Room Air 01/20/19 19:00 98.4 73 20 110/59 (76) 94 Room Air 98.4 01/20/19 18:18 70 122/59 01/20/19 15:52 97 Room Air 01/20/19 15:00 98.8 70 18 122/59 (80) 95 Room Air 98.8 01/20/19 12:43 97 Room Air 01/20/19 11:00 98.0 68 18 130/64 (86) 93 Room Air 98.0 01/20/19 09:41 79 124/61 01/20/19 09:40 79 124/61 01/20/19 08:11 91 Room Air 01/20/19 08:00 Room Air 01/20/19 07:00 98.3 79 18 124/61 (82) 92 Room Air 98.3 Laboratory Laboratory Microbiology 01/17/19 Blood Culture - Preliminary, Resulted NO GROWTH AFTER 4 DAYS Medication Medications Current Medications Gabapentin (Neurontin) 100 mg TID PO Last administered on 01/21/19at 08:24; Start 01/20/19 at 21:00 Guaifenesin (Mucinex) 600 mg BID PO Last administered on 01/21/19at 11:51; Start 01/21/19 at 10:30 Methylprednisolone Sodium Succinate (SOLU-Medrol 40MG VIAL) 40 mg 1X ONCE IV Last administered on 01/21/19at 11:52; Start 01/21/19 at 10:45; Stop 01/21/19 at 10:46; Status DC Methylprednisolone Sodium Succinate (SOLU-Medrol 40MG VIAL) 40 mg 1X ONCE IV ; Start 01/21/19 at 15:45; Stop 01/21/19 at 15:46; Status DC Methylprednisolone Sodium Succinate (SOLU-Medrol 40MG VIAL) 40 mg DAILY IV ; Start 01/22/19 at 09:00 Comment Review of Relevant I have reviewed the following items tawnya (where applicable) has been applied. VIELKA ELLINGTON MD Jan 21, 2019 16:08
[2019-01-21 19:00] VITALS: BP 142/75
[2019-01-21] MEDS: MONTELUKAST SODIUM 10 MG TABLET. PO SCH (21:06)
[2019-01-21] MEDS: SIMVASTATIN 20 MG TABLET PO SCH (21:06)
[2019-01-21] MEDS: MIRTAZAPINE 7.5 MG TABLET. PO SCH (21:06)
[2019-01-21] MEDS: DOXAZOSIN MESYLATE 4 MG TABLET. PO SCH (21:07)
[2019-01-21 23:00] VITALS: BP 123/54
[2019-01-22 03:00] VITALS: BP 105/60
[2019-01-22 07:00] VITALS: BP 136/65
[2019-01-22] MEDS: ALBUTEROL SULFATE 2.5 MG/3 ML NEBU. NEB SCH ×4 (07:44→20:09)
[2019-01-22] MEDS: BUDESONIDE 0.5 MG/2 ML NEBU. NEB SCH ×2 (07:44→20:09)
[2019-01-22] MEDS: FLUTICASONE 50MCG/NASAL SPRAY 16GM BOTTLE. NS SCH (08:45)
[2019-01-22] MEDS: LACTOBACILLUS RHAMNOSUS GG 1 CAPSULE. PO SCH ×2 (08:46→21:47)
[2019-01-22] MEDS: CETIRIZINE HCL 10 MG TABLET. PO SCH (08:46)
[2019-01-22] MEDS: PANTOPRAZOLE 40 MG TABLET.DR. PO SCH (08:46)
[2019-01-22] MEDS: ASCORBIC ACID 500 MG TABLET PO SCH (08:47)
[2019-01-22] MEDS: ASPIRIN ENTERIC COATED 81 MG TABLET.DR. PO SCH ×2 (08:47→15:25)
[2019-01-22] MEDS: MULTIVITAMIN with MINERAL TABLET. PO SCH (08:47)
[2019-01-22] MEDS: CALCIUM CARB/VIT D3 500/200 TABLET. PO SCH (08:47)
[2019-01-22] MEDS: CYANOCOBALAMIN (VITAMIN B-12) 1,000 MCG TABLET. PO SCH (08:47)
[2019-01-22] MEDS: GABAPENTIN 100 MG CAPSULE. PO SCH ×3 (08:47→21:47)
[2019-01-22] MEDS: CARVEDILOL 3.125 MG TABLET. PO SCH ×2 (08:48→16:51)
[2019-01-22] MEDS: hydrALAZINE 25 MG TABLET PO SCH ×2 (08:49→21:47)
[2019-01-22] MEDS: DICLOFENAC SODIUM 1% TOPICAL GEL 100GM TUBE. TP SCH ×2 (08:49→21:46)
[2019-01-22] MEDS: HEPARIN for SUB-Q USE 5,000 UNIT/ML VIAL. SQ SCH ×2 (08:55→22:00)
[2019-01-22] MEDS ORDERED: methylPREDNISolone SOD SUCC PF 40 MG/ML VIAL. IV SCH (09:00)
--- NOTE | 2019-01-22 09:15 | PDOC ---
IM PROGRESS NOTES- Subjective Subjective Cough and congestion is getting worse. Mucus is yellow.. Patient had significant cough and congestion and dyspnea yesterday afternoon and could not be discharged. Objective Vitals/I&O Vital Signs Date Time Temp Pulse Resp B/P (MAP) Pulse Ox O2 Delivery O2 Flow Rate FiO2 01/22/19 08:49 76 132/72 01/22/19 07:44 98 Room Air 01/22/19 07:00 97.7 18 97.7 I & O 01/21/19 01/21/19 01/22/19 14:59 22:59 06:59 Intake Total 150 ml 0 ml Output Total 250 ml 600 ml Balance -250 ml 150 ml -600 ml Physical Exam Physical Exam General appearance - alert,ill appearing, and in moderate distress and oriented to person, place, and time Mental Status - alert, oriented to person, place, and time, affect appropriate to mood Head - normal Chest -bilateral wheezing, in moderate distress Heart - S1 and S2 normal Abdomen - soft, nontender, Neurological - alert and oriented, has tremors Musculoskeletal -unchanged Extremities - no pedal edema Skin - warm and dry Meds Current Medications Medications (Trade) Dose Ordered Sig/Juhi Route PRN Reason Start Time Stop Time Status Last Admin Dose Admin Guaifenesin (Mucinex) 600 mg BID PO 01/21/19 10:30 01/22/19 08:47 Methylprednisolone Sodium Succinate (SOLU-Medrol 40MG VIAL) 40 mg 1X ONCE IV 01/21/19 10:45 01/21/19 10:46 DC 01/21/19 11:52 Methylprednisolone Sodium Succinate (SOLU-Medrol 40MG VIAL) 40 mg DAILY IV 01/22/19 09:00 01/22/19 08:58 Methylprednisolone Sodium Succinate (SOLU-Medrol 40MG VIAL) 40 mg 1X ONCE IV 01/21/19 15:45 01/21/19 15:46 DC 01/21/19 16:39 Gabapentin (Neurontin) 200 mg TID PO 01/21/19 21:00 01/22/19 08:47 Assessment Assessment 1. Gram-positive bacteremia in 2/2 bottles. The patient is asymptomatic. 2. Weakness. 3. Fall. 4. L3 compression fracture, acute on the CT scan of spine; however, the patient states he has no symptoms now. 5. Chronic obstructive pulmonary disease. 6. Dizziness. 7. Chronic kidney disease stage 3. 8. Coronary artery disease. 9. Hypertension. 10. 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 11. Anxiety. PLAN: Consult Dr. Melton for Infectious Disease evaluation and management. Continue IV vancomycin for now, but consider changing to Zyvox if the patient has renal insufficiency. Consult Dr. Bass for rehab evaluation and management because of the falls and weakness and recent likely compression fracture of the L3. The patient has lumbar spinal stenosis that is chronic, along with degenerative changes. For details, please refer to the orders. The patient's back pain is better today. Gram-positive bacteremia- continue IV vancomycin. Blood cultures 2 out of 2 positive for gram-positive bacteria staph- no more info.. Cultures drawn on 01/17 are negative so far L3 compression fracture- discussed with Dr. Bass. No intervention needed. Patient is walking well. Hypernatremia- sodium is 148. Encouraged to increase more fluid intake. I will give him 500 mL of IV D5W. Exacerbation of COPD- started on IV steroids. Symptoms got much worse yesterday afternoon and patient could not be discharged. He is continuing to get worse. I'll increase IV steroids and depressed Dr. Melton to see if he needs antibiotics. Hypokalemia- potassium is 3.6. Replace potassium. Tremors-on gabapentin. Patient had problems with bedbugs at home and the family is trying to clean the house. Plan Plan For more details regarding further plans, please refer to the orders. MARCELLUS FIERRO MD Jan 22, 2019 09:15
--- NOTE | 2019-01-22 09:43 | PDOC ---
Infectious Disease Note Subjective Subjective Doing ok. Cough is worsening. Steroids started No F/C/S/N/V/D/SOA/rash Vital Sign Vital Signs Vital Signs Date Time Temp Pulse Resp B/P (MAP) Pulse Ox O2 Delivery O2 Flow Rate FiO2 01/22/19 08:49 76 132/72 01/22/19 07:44 98 Room Air 01/22/19 07:00 97.7 18 97.7 Physical Exam PHYSICAL EXAM GENERAL: The patient is alert, oriented x 3 and not in acute distress. In chair EYES: Pupils reacting to light. Conjunctivae pale. HEENT: The patient is wearing hearing aids. Throat is clear. NECK: Supple. JVP normal. LUNGS: Decreased breath sounds at bases. No wheezing. No rales. Occ squeak CARDIOVASCULAR: S1, S2 regular. ABDOMEN: Soft, nontender, no guarding, no rigidity. Bowel sounds present. EXTREMITIES: No edema. Lumbar spine, no tenderness. CENTRAL NERVOUS SYSTEM: Alert and oriented, anxious, has tremors that are chronic. Affect - appropriate Labs Micro Microbiology 01/17/19 Blood Culture - Preliminary, Resulted NO GROWTH AFTER 1 DAY Objective Assessment AECOPD Bacteremia 2/2 bottles 01/16 - Staph hominis - contamination cough but clear sputum - chronic COPD no anterior chest discomfort to suggest bronchitis Compression fracture L3 CKD - stable Sulfa allergy - does not remember reaction but almost killed him Plan Plan of Care Dose rocephin F/u response d/w Dr. Lopez and nursing JUANCARLOS STOCKTON MD Jan 22, 2019 09:43
--- NOTE | 2019-01-22 10:02 | PDOC ---
PROGRESS NOTES Subjective Subjective He admits continued cough with expectoration. Objective Objective Vital Signs Date Time Temp Pulse Resp B/P (MAP) Pulse Ox O2 Delivery O2 Flow Rate FiO2 01/22/19 08:49 76 132/72 01/22/19 07:44 98 Room Air 01/22/19 07:00 97.7 18 97.7 Intake and Output 01/22/19 06:59 Intake Total 150 ml Output Total 850 ml Balance -700 ml Intake Oral 150 ml Output Urine Total 850 ml # Voids 1 # Bowel Movements 8 Physical Exam Physical Exam He is alert,sitting in bedside chair and comfortable and he is working with physical therapy and he wants mucinex 1200 mg 4 times for day. Assessment Assessment Problems Medical Problems: (1) Bacteremia Status: Acute (2) Chronic anemia Status: Acute (3) Chronic CHF Status: Acute (4) Compression fx, lumbar spine Status: Acute Plan Plan of Care To continue present physical and occupational therapy follow up while here. Comment Review of Relevant I have reviewed the following items tawnya (where applicable) has been applied. Labs Microbiology 01/17/19 Blood Culture - Preliminary, Resulted NO GROWTH AFTER 4 DAYS Medications Current Medications Ceftriaxone Sodium (Rocephin) 1 gm 1X ONCE IVP Last administered on 01/17/19at 13:21; Start 01/17/19 at 12:45; Stop 01/17/19 at 12:46; Status DC Vancomycin HCl 250 ml @ 250 mls/hr 1X ONCE IV Last administered on 01/17/19at 13:22; Start 01/17/19 at 12:45; Stop 01/17/19 at 13:44; Status DC Acetaminophen (Tylenol) 650 mg PRN Q6HRS PRN PO MILD PAIN 1-3 Last administered on 01/20/19at 14:21; Start 01/17/19 at 17:30 Aspirin (Ecotrin) 81 mg DAILY PO Last administered on 01/22/19at 08:47; Start 01/18/19 at 09:00 Carvedilol (Coreg) 3.125 mg BIDWMEALS PO ; Start 01/17/19 at 18:00; Stop 01/17 at 18:00; Status DC Cyanocobalamin (Vitamin B-12) 1,000 mcg DAILY PO Last administered on 01/22/19at 08:47; Start 01/18/19 at 09:00 Diclofenac Sodium (Voltaren) 1 roz BID TP Last administered on 01/22/19 08:49; Start 01/17/19 at 21:00 Fluticasone Propionate (Flonase) 2 spray DAILY NS Last administered on 01/22/19 08:45; Start 01/18/19 at 09:00 Hydralazine HCl (Apresoline) 25 mg BID PO Last administered on 01/22/19 08:49; Start 01/17/19 at 21:00 Mirtazapine (Remeron) 7.5 mg HS PO Last administered on 01/21/19 21:06; Start 01/17/19 at 21:00 Montelukast Sodium (Singulair) 10 mg HS PO Last administered on 01/21/19 2 1:06; Start 01/17/19 at 21:00 Nitroglycerin (Nitrostat) 0.4 mg PRN Q5MIN PRN SL CHEST PAIN; Start 01/17/19 at 17:30 Non-Formulary Medication (Albuterol Sulfate (Albuterol Sulfate Conc Neb Soln)) 2.5 mg [id number] IH ; Start 01/17/19 at 21:00; Status UNV Ascorbic Acid (Vitamin C) 1,000 mg DAILY PO Last administered on 01/22/19 08:47; Start 01/18/19 at 09:00 Non-Formulary Medication (Budesonide/ Formoterol Fumarate (Symbicort 160-4.5 Mcg Inhaler)) 2 inhaler BID IH ; Start 01/17/19 at 21:00; Status UNV Calcium/Vitamin D (Oscal D 500mg/ 200uts) 1 tab [id number] PO Last administered on 01/22/19 08:47; Start 01/18/19 at 08:00 Doxazosin Mesylate (Cardura) 8 mg HS PO Last administered on 01/21/19 21:07; Start 01/17/19 at 21:00 Fluticasone Propionate (Flonase) 2 spray DAILY NS ; Start 01/18/19 at 09:00; Stop 01/18/19 at 11:10; Status DC Cetirizine HCl (ZyrTEC) 10 mg DAILY PO Last administered on 01/22/19 08:46; Start 01/18/19 at 09:00 Multivitamins (Thera M Plus) 1 tab DAILY PO Last administered on 01/22/19 08:47; Start 01/18/19 at 09:00 Pantoprazole Sodium (Protonix) 40 mg DAILYAC PO Last administered on 01/22/19 08:46; Start 01/18/19 at 07:30 Vancomycin HCl (Vanco Per Pharmacy) 1 each PRN DAILY PRN MC SEE COMMENTS Last administered on 01/20/19 13:48; Start 01/17/19 at 17:45; Stop 01/21/19 at 09:22; Status DC Ceftriaxone Sodium (Rocephin) 1 gm Q24H IVP ; Start 01/18/19 at 13:00; Stop 01/18/19 at 10:38; Status DC Budesonide (Pulmicort) 0.5 mg RTBID NEB Last administered on 01/22/19 07:44; Start 01/17/19 at 20:00 Albuterol Sulfate (Ventolin Neb Soln) 2.5 mg RTQID NEB Last administered on 01/22/19 07:44; Start 01/17/19 at 20:00 Vancomycin HCl 750 mg/Sodium Chloride 250 ml @ 250 mls/hr 1X ONCE IV Last administered on 01/17/19 18:23; Start 01/17/19 at 18:00; Stop 01/17/19 at 18:59; Status DC Vancomycin HCl 1 gm/Sodium Chloride 250 ml @ 250 mls/hr Q24H IV Last admi nistered on 01/20/19 16:05; Start 01/18/19 at 16:00; Stop 01/21/19 at 09:22; Status DC Carvedilol (Coreg) 3.125 mg BID PO Last administered on 01/18/19 08:50; Start 01/17/19 at 21:00; Stop 01/18/19 at 14:28; Status DC Vancomycin HCl (Vancomycin Trough Level) 1 each 1X ONCE MC Last administered on 01/19/19 15:30; Start 01/19/19 at 15:30; Stop 01/19/19 at 15:31; Status DC Simvastatin (Zocor) 20 mg HS PO Last administered on 01/21/19 21:06; Start 01/18/19 at 21:00 Heparin Sodium (Porcine) (Heparin Sodium) 5,000 unit Q12HR SQ Last administered on 01/22/19 08:55; Start 01/18/19 at 21:00 Carvedilol (Coreg) 3.125 mg BIDWMEALS PO Last administered on 01/22/19 08:48; Start 01/18/19 at 17:00 Lactobacillus Rhamnosus (Culturelle) 1 cap BID PO Last administered on 01/22/19 08:46; Start 01/18/19 at 21:00 Dextrose 500 ml @ 80 mls/hr 1X ONCE IV Last administered on 01/19/19 11:01; Start 01/19/19 at 10:00; Stop 01/19/19 at 16:14; Status DC Gabapentin (Neurontin) 100 mg BID PO Last administered on 01/20/19 09:38; Start 01/19/19 at 21:00; Stop 01/20/19 at 16:03; Status DC Potassium Chloride (Klor-Con) 20 meq 1X ONCE PO Last administered on 01/20/19 10:12; Start 01/20/19 at 09:30; Stop 01/20/19 at 09:31; Status DC Gabapentin (Neurontin) 100 mg TID PO Last administered on 01/21/19 08:24; Start 01/20/19 at 21:00; Stop 01/21/19 at 16:10; Status DC Guaifenesin (Mucinex) 600 mg BID PO Last administered on 01/22/19 08:47; Start 01/21/19 at 10:30 Methylprednisolone Sodium Succinate (SOLU-Medrol 40MG VIAL) 40 mg 1X ONCE IV Last administered on 01/21/19 11:52; Start 01/21/19 at 10:45; Stop 01/21/19 at 10:46; Status DC Methylprednisolone Sodium Succinate (SOLU-Medrol 40MG VIAL) 40 mg DAILY IV Last administered on 01/22/19 08:58; Start 01/22/19 at 09:00; Stop 01/22/19 at 09:32; Status DC Methylprednisolone Sodium Succinate (SOLU-Medrol 40MG VIAL) 40 mg 1X ONCE IV Last administered on 01/21/19 16:39; Start 01/21/19 at 15:45; Stop 01/21/19 at 15:46; Status DC Gabapentin (Neurontin) 200 mg TID PO Last administered on 01/22/19at 08:47; Start 01/21/19 at 21:00 Methylprednisolone Sodium Succinate (SOLU-Medrol 40MG VIAL) 40 mg [id number] IV ; Start 01/22/19 at 14:00 Ceftriaxone Sodium (Rocephin) 1 gm Q24H IVP ; Start 01/22/19 at 10:00 Active Scripts Active Prednisone (Prednisone) 10 Mg Tablet 10 Mg PO UD 9 Days Take 3 tablets by mouth daily for 3 days, then take 2 tablets by mouth daily for 3 days, then take 1 tablets by mouth daily for 3 days. Gabapentin (Gabapentin) 100 Mg Capsule 100 Mg PO TID Proair Hfa (Albuterol Sulfate) 8.5 Gm Hfa.aer.ad 2.5 Mg NEB RTQID Tylenol (Acetaminophen) 325 Mg Tablet 650 Mg PO PRN Q6HRS PRN 30 Days Voltaren (Diclofenac Sodium) 100 Gm Gel..gram. 1 Roz TP BID 30 Days Vitamin B-12 (Cyanocobalamin (Vitamin B-12)) 1,000 Mcg Tablet 1,000 Mcg PO DAILY Reported Fluticasone Propionate Nasal Corinne (Fluticasone Propionate) 16 Gm Corinne.susp 2 Corinne NS DAILY Aspir-Low (Aspirin) 81 Mg Tablet.dr 1 Tab PO DAILY Doxazosin Mesylate 8 Mg Tablet 1 Tab PO HS Omeprazole 40 Mg Capsule.dr 1 Cap PO DAILY C-1000 (Ascorbic Acid) 1,000 Mg Tablet.er 1,000 Mg PO DAILY Claritin (Loratadine) 10 Mg Tablet 10 Mg PO DAILY Nitrostat (Nitroglycerin) 0.4 Mg Tab.subl 0.4 Mg SL PRN Q5MIN PRN Flonase Allergy Relief (Fluticasone Propionate) 9.9 Ml Corinne.susp 2 Sprays NS DAILY Calcium 500-Vit D3 600 Tablet (Calcium Carbonate/Vitamin D3) 1 Each Tablet 1 Each PO DAILY Singulair Tablet (Montelukast Sodium) 10 Mg Tablet 10 Mg PO HS Centrum Silver Tablet (Multivits-Min/Fa/Lycopene/Lut) 1 Each Tablet 1 Each PO DAILY Carvedilol (Carvedilol) 3.125 Mg Tablet 1 Tab PO BID Hydralazine Hcl 25 Mg Tablet 1 Tab PO BID Mirtazapine 7.5 Mg Tablet 7.5 Mg PO HS Simvastatin 20 Mg Tablet 20 Mg PO HS Symbicort 160-4.5 Mcg Inhaler (Budesonide/Formoterol Fumarate) 10.2 Gm Hfa.aer.ad 2 Inhaler IH BID Albuterol Sulfate Conc Neb Soln (Albuterol Sulfate) 2.5 Mg/0.5 Ml Vial.neb 2.5 Mg IH [id number] Vitals/I & O Vital Sign - Last 24 Hours 01/21/19 01/21/19 01/21/19 01/21/19 10:59 11:00 15:00 15:23 Temp 98.6 98.0 98.6 98.0 Pulse 69 61 Resp 18 17 B/P (MAP) 119/64 (82) 140/60 (86) Pulse Ox 95 95 94 95 O2 Delivery Room Air Room Air Room Air Room Air 01/21/19 01/21/19 01/21/19 01/21/19 16:39 19:00 19:52 20:00 Temp 98.0 98.0 Pulse 61 69 Resp 20 B/P (MAP) 140/60 142/75 (97) Pulse Ox 93 94 O2 Delivery Room Air Room Air Room Air 01/21/19 01/21/19 01/21/19 01/22/19 21:06 21:07 23:00 03:00 Temp 98.0 98.5 98.0 98.5 Pulse 69 69 57 89 Resp 20 20 B/P (MAP) 142/75 142/75 123/54 (77) 105/60 (75) Pulse Ox 97 92 O2 Delivery Room Air Room Air 01/22/19 01/22/19 01/22/19 01/22/19 07:00 07:44 08:48 08:49 Temp 97.7 97.7 Pulse 63 76 76 Resp 18 B/P (MAP) 136/65 (88) 132/72 132/72 Pulse Ox 94 98 O2 Delivery Room Air Room Air Intake and Output 01/21/19 01/21/19 01/22/19 14:59 22:59 06:59 Intake Total 150 ml 0 ml Output Total 250 ml 600 ml Balance -250 ml 150 ml -600 ml ARI PORTILLO MD Jan 22, 2019 10:02
[2019-01-22 10:24] LABS: BASO % 0 % (0-3); EOS % 0 % (0-3); HEMOGLOBIN 8.6 g/dL (13.0-17.5); LYMPH # 0.7 x10^3/uL (1.0-4.8); LYMPH % 15 % (24-48); MEAN CORPUSCULAR HEMOGLOBIN 28 pg (25-35); MEAN CORPUSCULAR HGB CONC 33 g/dL (31-37); MEAN CORPUSCULAR VOLUME 86 fL (79-100); MONO # 0.3 x10^3/uL (0.0-1.1); MONO % 7 % (0-9); NEUT # 3.7 x10^3/uL (1.8-7.7); NEUT % 78 % (31-73); PLATELET COUNT 270 x10^3/uL (140-400); RED BLOOD COUNT 3.04 x10^6/uL (4.30-5.70); RED CELL DISTRIBUTION WIDTH 16.1 % (11.5-14.5); WHITE BLOOD COUNT 4.7 x10^3/uL (4.0-11.0)
[2019-01-22] MEDS: cefTRIAXone IV Push 1 GM VIAL. IVP SCH (10:30)
[2019-01-22 10:35] LABS: CALCIUM 9.3 mg/dL (8.5-10.1); CREATININE 1.9 mg/dL (0.7-1.3); GFR 33.9; POTASSIUM 4.4 mmol/L (3.5-5.1)
[2019-01-22 11:00] VITALS: BP 137/63
[2019-01-22 15:00] VITALS: BP 130/64
[2019-01-22] MEDS: ACYCLOVIR 200 MG CAPSULE. PO SCH ×2 (15:25→21:46)
[2019-01-22] MEDS: methylPREDNISolone SOD SUCC PF 40 MG/ML VIAL. IV SCH (15:30)
--- NOTE | 2019-01-22 17:27 | PDOC ---
PROGRESS NOTES Assessment Assessment Tremors, ET. Generalized weakness. Falls. Sepsis? Renal failure. CAD s/p stents placement. HTN. HLD. COPD. Anemia. L3 acute compression fracture. Degenerative spine disease. RECOMMENDATIONS/PLAN: Continue Neurontin to 200 mg tid. Treat medical diseases. OT/PT. Continue watching signs for PD. HISTORY OF THE PRESENT ILLNESS: This is an 83-year-old male patient with above medical diseases stating he has been having chronic tremors in his hands for over a year. He stated he did not have abnormal movements in head, but he was observed mild tremor like movements in his head at the time of neurology consultation. He said his LE were not affe cted. 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 He had a stent placed in 2011. His creatinine ranges from 1.6 to 2. History of Clostridium difficile colitis in 2013. History of old myocardial infarction, DVT in 2011, small bowel obstruction in 2011. CAD, 2 stents placed at in 2012. Carotid artery disease, GERD, hemorrhoids, hypertension, lumbar spinal stenosis of L4-L5, macular degeneration of left eye dry, osteoarthritis of multiple sites and history of hypotension. PAST SURGICAL HISTORY: Stents placed in 2012, 2 stents placed L5-S1 decompression with microdiskectomy and right L4-L5 decompression, partial colectomy, appendectomy, tonsillectomy and hemorrhoidectomy. ALLERGIES: CLARITHROMYCIN THAT CAUSES RASH, CLOPIDOGREL CAUSES RASH. CODEINE, CYCLOBENZAPRINE CAUSES ITCHING. LISINOPRIL AND PRASUGREL CAUSES NAUSEA, MODERATE TO SEVERE. SULFA, ANTIBIOTICS, TIZANIDINE, ITCHING, MILD TO MODERATE. FAMILY HISTORY: His father had coronary artery disease. Mother had coronary artery disease. SOCIAL HISTORY: Ex-cigarette smoker. Denied history of alcoholism or drug abuse. MEDICATIONS: Refer to MAR REVIEW OF SYSTEMS: Constitutional: No malnutrition, weight loss, cachexia. Head: No recent traumatic brain or head injury. Skin: No edema, or rash. Ear: No infection. Eyes: No vision loss or color blindness. Nose: No bleeding or purulent discharges. Hearing: Hearing decrease. Neck: No injury. Cardiac: CAD, s/p stents placement, HTN, HLD. Pulmonary: COPD. GI: No GI ulcer, GI bleeding. Urinary/genital: CKD. Endocrinologic: No cousin face, craniofacial dysmorphism. Skeletomuscular: Generalized weakness. Falls. Neurological: see HP. Psychiatric: Denies drug use/abuse. Otherwise, not [id number] review of systems. PHYSICAL EXAMINATION: General appearance is in subacute distress. HEENT: Normocephalic and nontraumatic. Eyes, nose, ears, and throat are unremarkable. Neck is supple. No lymphadenopathy. No crepitus. Cardiovascular: S1, S2, regular rate and rhythm. Pulmonary: Clear to auscultation bilaterally. Abdomen: Bowel sounds are positive. Extremities: No rash, lesions, or edema. No restriction of range of motion NEUROLOGICAL EXAMINATION: Awake. Partially oriented to time, but knew place and person. PERRL. EOMI. CN: no focal findings. Muscle tone: within normal. Muscle strength: 4+ UE , 4 LE. DTR: 1-2 Plantar reflex: Neutral response bilaterally Gait: not examined in bed. Sensory exam: no abnormal findings. No cerebellar signs elicited. F-T-N test fine. Objective Objective Vital Signs Date Time Temp Pulse Resp B/P (MAP) Pulse Ox O2 Delivery O2 Flow Rate FiO2 01/22/19 16:51 75 124/64 01/22/19 15:34 98 Room Air 01/22/19 15:00 98.0 18 98.0 Intake and Output 01/22/19 07:00 Intake Total 150 ml Output Total 850 ml Balance -700 ml Intake Oral 150 ml Output Urine Total 850 ml # Voids 1 # Bowel Movements 8 Vitals Signs Vitals VS - Last 72 Hours, by Label Date Time Temp Pulse Resp B/P (MAP) Pulse Ox O2 Delivery O2 Flow Rate FiO2 01/22/19 16:51 75 124/64 01/22/19 15:34 98 Room Air 01/22/19 15:00 98.0 62 18 130/64 (86) 96 Room Air 98.0 01/22/19 11:57 98 Room Air 01/22/19 11:00 97.2 62 18 137/63 (87) 98 Room Air 97.2 01/22/19 08:49 76 132/72 01/22/19 08:48 76 132/72 01/22/19 07:44 98 Room Air 01/22/19 07:00 97.7 63 18 136/65 (88) 94 Room Air 97.7 01/22/19 03:00 98.5 89 20 105/60 (75) 92 Room Air 98.5 01/21/19 23:00 98.0 57 20 123/54 (77) 97 Room Air 98.0 01/21/19 21:07 69 142/75 01/21/19 21:06 69 142/75 01/21/19 20:00 Room Air 01/21/19 19:52 94 Room Air 01/21/19 19:00 98.0 69 20 142/75 (97) 93 Room Air 98.0 01/21/19 16:39 61 140/60 01/21/19 15:23 95 Room Air 01/21/19 15:00 98.0 61 17 140/60 (86) 94 Room Air 98.0 01/21/19 11:00 98.6 69 18 119/64 (82) 95 Room Air 98.6 01/21/19 10:59 95 Room Air 01/21/19 08:25 74 107/58 01/21/19 08:24 74 107/58 01/21/19 08:00 Room Air 01/21/19 07:21 95 Room Air 01/21/19 07:00 98.6 74 17 107/58 (74) 91 Room Air 98.6 Laboratory Laboratory Laboratory Tests Test 01/22/19 10:10 White Blood Count 4.7 x10^3/uL (4.0-11.0) Red Blood Count 3.04 x10^6/uL (4.30-5.70) Hemoglobin 8.6 g/dL (13.0-17.5) Hematocrit 26.0 % (39.0-53.0) Mean Corpuscular Volume 86 fL (79-100) Mean Corpuscular Hemoglobin 28 pg (25-35) Mean Corpuscular Hemoglobin Concent 33 g/dL (31-37) Red Cell Distribution Width 16.1 % (11.5-14.5) Platelet Count 270 x10^3/uL (140-400) Neutrophils (%) (Auto) 78 % (31-73) Lymphocytes (%) (Auto) 15 % (24-48) Monocytes (%) (Auto) 7 % (0-9) Eosinophils (%) (Auto) 0 % (0-3) Basophils (%) (Auto) 0 % (0-3) Neutrophils # (Auto) 3.7 x10^3/uL (1.8-7.7) Lymphocytes # (Auto) 0.7 x10^3/uL (1.0-4.8) Monocytes # (Auto) 0.3 x10^3/uL (0.0-1.1) Eosinophils # (Auto) 0.0 x10^3/uL (0.0-0.7) Basophils # (Auto) 0.0 x10^3/uL (0.0-0.2) Sodium Level 143 mmol/L (136-145) Potassium Level 4.4 mmol/L (3.5-5.1) Chloride Level 106 mmol/L (98-107) Carbon Dioxide Level 26 mmol/L (21-32) Anion Gap 11 (6-14) Blood Urea Nitrogen 26 mg/dL (8-26) Creatinine 1.9 mg/dL (0.7-1.3) Estimated GFR (Cockcroft-Gault) 33.9 Glucose Level 133 mg/dL (70-99) Calcium Level 9.3 mg/dL (8.5-10.1) Microbiology 01/17/19 Blood Culture - Final, Complete NO GROWTH AFTER 5 DAYS Medication Medications Current Medications Acyclovir (Zovirax) 400 mg [id number] PO Last administered on 01/22/19 15:25; Start 01/22/19 at 14:00 Ceftriaxone Sodium (Rocephin) 1 gm Q24H IVP Last administered on 01/22/19 10:30; Start 01/22/19 at 10:00 Gabapentin (Neurontin) 200 mg TID PO Last administered on 01/22/19 15:25; Start 01/21/19 at 21:00 Guaifenesin (Mucinex) 1,200 mg PRN Q6HRS PRN PO cough Last administered on 01/22/19 16:50; Start 01/22/19 at 10:00 Methylprednisolone Sodium Succinate (SOLU-Medrol 40MG VIAL) 40 mg [id number] IV Last administered on 01/22/19 15:30; Start 01/22/19 at 14:00 Methylprednisolone Sodium Succinate (SOLU-Medrol 40MG VIAL) 40 mg DAILY IV Last administered on 10/11/19at 08:58; Start 01/22/19 at 09:00; Stop 01/22/19 at 09:32; Status DC Comment Review of Relevant I have reviewed the following items tawnya (where applicable) has been applied. VIELKA ELLINGTON MD Jan 22, 2019 17:27
[2019-01-22 19:00] VITALS: BP 141/71
[2019-01-22] MEDS: MIRTAZAPINE 7.5 MG TABLET. PO SCH (21:46)
[2019-01-22] MEDS: DOXAZOSIN MESYLATE 4 MG TABLET. PO SCH (21:46)
[2019-01-22] MEDS: MONTELUKAST SODIUM 10 MG TABLET. PO SCH (21:46)
[2019-01-22] MEDS: SIMVASTATIN 20 MG TABLET PO SCH (21:47)
[2019-01-22 23:00] VITALS: BP 151/77
[2019-01-23 03:00] VITALS: BP 118/55
[2019-01-23 07:00] VITALS: BP 130/66
[2019-01-23] MEDS: BUDESONIDE 0.5 MG/2 ML NEBU. NEB SCH ×2 (07:37→20:01)
[2019-01-23] MEDS: ALBUTEROL SULFATE 2.5 MG/3 ML NEBU. NEB SCH ×4 (07:37→20:01)
[2019-01-23] MEDS: FLUTICASONE 50MCG/NASAL SPRAY 16GM BOTTLE. NS SCH (09:02)
[2019-01-23] MEDS: DICLOFENAC SODIUM 1% TOPICAL GEL 100GM TUBE. TP SCH ×2 (09:03→21:00)
[2019-01-23] MEDS: CYANOCOBALAMIN (VITAMIN B-12) 1,000 MCG TABLET. PO SCH (09:04)
[2019-01-23] MEDS: methylPREDNISolone SOD SUCC PF 40 MG/ML VIAL. IV SCH ×2 (09:04→14:28)
[2019-01-23] MEDS: CALCIUM CARB/VIT D3 500/200 TABLET. PO SCH (09:04)
[2019-01-23] MEDS: ACYCLOVIR 200 MG CAPSULE. PO SCH ×3 (09:04→21:29)
[2019-01-23] MEDS: GABAPENTIN 100 MG CAPSULE. PO SCH ×3 (09:05→21:29)
[2019-01-23] MEDS: hydrALAZINE 25 MG TABLET PO SCH ×2 (09:05→21:30)
[2019-01-23] MEDS: ASCORBIC ACID 500 MG TABLET PO SCH (09:05)
[2019-01-23] MEDS: PANTOPRAZOLE 40 MG TABLET.DR. PO SCH (09:05)
[2019-01-23] MEDS: MULTIVITAMIN with MINERAL TABLET. PO SCH (09:05)
[2019-01-23] MEDS: CETIRIZINE HCL 10 MG TABLET. PO SCH (09:05)
[2019-01-23] MEDS: LACTOBACILLUS RHAMNOSUS GG 1 CAPSULE. PO SCH ×2 (09:06→21:30)
[2019-01-23] MEDS: CARVEDILOL 3.125 MG TABLET. PO SCH ×2 (09:06→16:50)
--- NOTE | 2019-01-23 09:06 | PDOC ---
IM PROGRESS NOTES- Subjective Subjective Cough and congestion is slowly improving. Objective Vitals/I&O Vital Signs Date Time Temp Pulse Resp B/P (MAP) Pulse Ox O2 Delivery O2 Flow Rate FiO2 01/23/19 07:40 97 Room Air 01/23/19 03:00 97.3 54 18 118/55 (76) 97.3 I & O0 01/22/19 01/22/19 01/23/19 15:00 23:00 07:00 Intake Total 240 ml 500 ml Output Total 1375 ml Balance 240 ml 500 ml -1375 ml Physical Exam Physical Exam General appearance - alert,ill appearing, and in moderate distress and oriented to person, place, and time Mental Status - alert, oriented to person, place, and time, affect appropriate to mood Head - normal Chest -wheezing is improving. Heart - S1 and S2 normal Abdomen - soft, nontender, Neurological - alert and oriented, has tremors Musculoskeletal -unchanged Extremities - no pedal edema Skin - warm and dry Labs Laboratory Tests Test 01/22/19 10:10 White Blood Count 4.7 x10^3/uL (4.0-11.0) Red Blood Count 3.04 x10^6/uL (4.30-5.70) L Hemoglobin 8.6 g/dL (13.0-17.5) L Hematocrit 26.0 % (39.0-53.0) L Mean Corpuscular Volume 86 fL (79-100) Mean Corpuscular Hemoglobin 28 pg (25-35) Mean Corpuscular Hemoglobin Concent 33 g/dL (31-37) Red Cell Distribution Width 16.1 % (11.5-14.5) H Platelet Count 270 x10^3/uL (140-400) Neutrophils (%) (Auto) 78 % (31-73) H Lymphocytes (%) (Auto) 15 % (24-48) L Monocytes (%) (Auto) 7 % (0-9) Eosinophils (%) (Auto) 0 % (0-3) Basophils (%) (Auto) 0 % (0-3) Neutrophils # (Auto) 3.7 x10^3/uL (1.8-7.7) Lymphocytes # (Auto) 0.7 x10^3/uL (1.0-4.8) L Monocytes # (Auto) 0.3 x10^3/uL (0.0-1.1) Eosinophils # (Auto) 0.0 x10^3/uL (0.0-0.7) Basophils # (Auto) 0.0 x10^3/uL (0.0-0.2) Sodium Level 143 mmol/L (136-145) Potassium Level 4.4 mmol/L (3.5-5.1) Chloride Level 106 mmol/L (98-107) Carbon Dioxide Level 26 mmol/L (21-32) Anion Gap 11 (6-14) Blood Urea Nitrogen 26 mg/dL (8-26) Creatinine 1.9 mg/dL (0.7-1.3) H Estimated GFR (Cockcroft-Gault) 33.9 Glucose Level 133 mg/dL (70-99) H Calcium Level 9.3 mg/dL (8.5-10.1) Laboratory Tests 01/22/19 10:10 Laboratory Tests 01/22/19 10:10 Meds Current Medications Medications (Trade) Dose Ordered Sig/Juhi Route PRN Reason Start Time Stop Time Status Last Admin Dose Admin Methylprednisolone Sodium Succinate (SOLU-Medrol 40MG VIAL) 40 mg [id number] IV 01/22/19 14:00 01/22/19 15:30 Ceftriaxone Sodium (Rocephin) 1 gm Q24H IVP 01/22/19 10:00 01/22/19 10:30 Guaifenesin (Mucinex) 1,200 mg PRN Q6HRS PRN PO cough 01/22/19 10:00 01/22/19 16:50 Acyclovir (Zovirax) 400 mg [id number] PO 01/22/19 14:00 01/22/19 21:46 Assessment Assessment 1. Gram-positive bacteremia in 2/2 bottles. The patient is asymptomatic. 2. Weakness. 3. Fall. 4. L3 compression fracture, acute on the CT scan of spine; however, the patient states he has no symptoms now. 5. Chronic obstructive pulmonary disease. 6. Dizziness. 7. Chronic kidney disease stage 3. 8. Coronary artery disease. 9. Hypertension. 10. 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 11. Anxiety. PLAN: Consult Dr. Melton for Infectious Disease evaluation and management. Continue IV vancomycin for now, but consider changing to Zyvox if the patient has renal insufficiency. Consult Dr. Bass for rehab evaluation and management because of the falls and weakness and recent likely compression fracture of the L3. The patient has lumbar spinal stenosis that is chronic, along with degenerative changes. For details, please refer to the orders. The patient's back pain is better today. Gram-positive bacteremia- continue IV vancomycin. Blood cultures 2 out of 2 positive for gram-positive bacteria staph- no more info.. Cultures drawn on 01/17 are negative so far L3 compression fracture- discussed with Dr. Bass. No intervention needed. Patient is walking well. Hypernatremia- sodium is 148. Encouraged to increase more fluid intake. I will give him 500 mL of IV D5W. Exacerbation of COPD- started on IV steroids. Improving slowly. Continue IV steroids and Rocephin. Hypokalemia- potassium is 3.6. Replace potassium. Tremors-on gabapentin. Patient had problems with bedbugs at home and the family is trying to clean the house. If stable I will discharge him home tomorrow with home health services. Plan Plan For more details regarding further plans, please refer to the orders. MARCELLUS FIERRO MD Jan 23, 2019 09:06
[2019-01-23] MEDS: HEPARIN for SUB-Q USE 5,000 UNIT/ML VIAL. SQ SCH ×2 (09:20→21:00)
--- NOTE | 2019-01-23 10:33 | PDOC ---
PROGRESS NOTES Subjective Subjective No new complaints. Objective Objective Vital Signs Date Time Temp Pulse Resp B/P (MAP) Pulse Ox O2 Delivery O2 Flow Rate FiO2 01/23/19 09:06 64 130/66 01/23/19 07:40 97 Room Air 01/23/19 07:00 97.9 20 97.9 l Intake and Output 01/23/19 06:59 Intake Total 740 ml Output Total 1375 ml Balance -635 ml Intake Oral 740 ml Output Urine Total 1375 ml # Voids 2 Physical Exam Physical Exam He is comfortable sitting in bedside chair and his cough is better controlled. Assessment Assessment Problems Medical Problems: (1) Bacteremia Status: Acute (2) Chronic anemia Status: Acute (3) Chronic CHF Status: Acute (4) Compression fx, lumbar spine Status: Acute Plan Plan of Detention when medically stable. Comment Review of Relevant I have reviewed the following items tawnya (where applicable) has been applied. Labs Laboratory Tests Test 01/22/19 10:10 White Blood Count 4.7 x10^3/uL (4.0-11.0) Red Blood Count 3.04 x10^6/uL (4.30-5.70) Hemoglobin 8.6 g/dL (13.0-17.5) Hematocrit 26.0 % (39.0-53.0) Mean Corpuscular Volume 86 fL (79-100) Mean Corpuscular Hemoglobin 28 pg (25-35) Mean Corpuscular Hemoglobin Concent 33 g/dL (31-37) Red Cell Distribution Width 16.1 % (11.5-14.5) Platelet Count 270 x10^3/uL (140-400) Neutrophils (%) (Auto) 78 % (31-73) Lymphocytes (%) (Auto) 15 % (24-48) Monocytes (%) (Auto) 7 % (0-9) Eosinophils (%) (Auto) 0 % (0-3) Basophils (%) (Auto) 0 % (0-3) Neutrophils # (Auto) 3.7 x10^3/uL (1.8-7.7) Lymphocytes # (Auto) 0.7 x10^3/uL (1.0-4.8) Monocytes # (Auto) 0.3 x10^3/uL (0.0-1.1) Eosinophils # (Auto) 0.0 x10^3/uL (0.0-0.7) Basophils # (Auto) 0.0 x10^3/uL (0.0-0.2) Sodium Level 143 mmol/L (136-145) Potassium Level 4.4 mmol/L (3.5-5.1) Chloride Level 106 mmol/L (98-107) Carbon Dioxide Level 26 mmol/L (21-32) Anion Gap 11 (6-14) Blood Urea Nitrogen 26 mg/dL (8-26) Creatinine 1.9 mg/dL (0.7-1.3) Estimated GFR (Cockcroft-Gault) 33.9 Glucose Level 133 mg/dL (70-99) Calcium Level 9.3 mg/dL (8.5-10.1) Microbiology 01/17/19 Blood Culture - Final, Complete NO GROWTH AFTER 5 DAYS Medications Current Medications Ceftriaxone Sodium (Rocephin) 1 gm 1X ONCE IVP Last administered on 01/17/19 13:21; Start 01/17/19 at 12:45; Stop 01/17/19 at 12:46; Status DC Vancomycin HCl 250 ml @ 250 mls/hr 1X ONCE IV Last administered on 01/17/19 13:22; Start 01/17/19 at 12:45; Stop 01/17/19 at 13:44; Status DC Acetaminophen (Tylenol) 650 mg PRN Q6HRS PRN PO MILD PAIN 1-3 Last administered on 01/20/19 14:21; Start 01/17/19 at 17:30 Aspirin (Ecotrin) 81 mg DAILY PO Last administered on 01/22/19 15:25; Start 01/18/19 at 09:00 Carvedilol (Coreg) 3.125 mg BIDWMEALS PO ; Start 01/17/19 at 18:00; Stop 01/17/19 at 18:00; Status DC Cyanocobalamin (Vitamin B-12) 1,000 mcg DAILY PO Last administered on 01/23 09:04; Start 01/18/19 at 09:00 Diclofenac Sodium (Voltaren) 1 roz BID TP Last administered on 01/23/19 09:03; Start 01/17/19 at 21:00 Fluticasone Propionate (Flonase) 2 spray DAILY NS Last administered on 01/23/19 09:02; Start 01/18/19 at 09:00 Hydralazine HCl (Apresoline) 25 mg BID PO Last administered on 01/23/19 09:05; Start 01/17/19 at 21:00 Mirtazapine (Remeron) 7.5 mg HS PO Last administered on 01/22/19 21:46; Start 01/17/19 at 21:00 Montelukast Sodium (Singulair) 10 mg HS PO Last administered on 01/22/19 21:46; Start 01/17/19 at 21:00 Nitroglycerin (Nitrostat) 0.4 mg PRN Q5MIN PRN SL CHEST PAIN; Start 01/17/19 at 17:30 Non-Formulary Medication (Albuterol Sulfate (Albuterol Sulfate Conc Neb Soln)) 2.5 mg [id number] IH ; Start 01/17/19 at 21:00; Status UNV Ascorbic Acid (Vitamin C) 1,000 mg DAILY PO Last administered on 01/23/19 09:05; Start 01/18/19 at 09:00 Non-Formulary Medication (Budesonide/ Formoterol Fumarate (Symbicort 160-4.5 Mcg Inhaler)) 2 inhaler BID IH ; Start 01/17/19 at 21:00; Status UNV Calcium/Vitamin D (Oscal D 500mg/ 200uts) 1 tab [id number] PO Last administered on 01/23/19 09:04; Start 01/18/19 at 08:00 Doxazosin Mesylate (Cardura) 8 mg HS PO Last administered on 01/22/19 21:46; Start 01/17/19 at 21:00 Fluticasone Propionate (Flonase) 2 spray DAILY NS ; Start 01/18/19 at 09:00; Stop 01/18/19 at 11:10; Status DC Cetirizine HCl (ZyrTEC) 10 mg DAILY PO Last administered on 01/23/19 09:05; Start 01/18/19 at 09:00 Multivitamins (Thera M Plus) 1 tab DAILY PO Last administered on 01/23/19 09:05; Start 01/18/19 at 09:00 Pantoprazole Sodium (Protonix) 40 mg DAILYAC PO Last administered on 01/23/19 09:05; Start 01/18/19 at 07:30 Vancomycin HCl (Vanco Per Pharmacy) 1 each PRN DAILY PRN MC SEE COMMENTS Last a dministered on 01/20/19 13:48; Start 01/17/19 at 17:45; Stop 01/21/19 at 09:22; Status DC Ceftriaxone Sodium (Rocephin) 1 gm Q24H IVP ; Start 01/18/19 at 13:00; Stop 01/18/19 at 10:38; Status DC Budesonide (Pulmicort) 0.5 mg RTBID NEB Last administered on 01/23/19 07:37; Start 01/17/19 at 20:00 Albuterol Sulfate (Ventolin Neb Soln) 2.5 mg RTQID NEB Last administered on 01/23/19 07:37; Start 01/17/19 at 20:00 Vancomycin HCl 750 mg/Sodium Chloride 250 ml @ 250 mls/hr 1X ONCE IV Last administered on 01/17/19 18:23; Start 01/17/19 at 18:00; Stop 01/17/19 at 18:59; Status DC Vancomycin HCl 1 gm/Sodium Chloride 250 ml @ 250 mls/hr Q24H IV Last administered on 01/20/19 16:05; Start 01/18/19 at 16:00; Stop 01/21/19 at 09:22; Status DC Carvedilol (Coreg) 3.125 mg BID PO Last administered on 01/18/19 08:50; Start 01/17/19 at 21:00; Stop 01/18/19 at 14:28; Status DC Vancomycin HCl (Vancomycin Trough Level) 1 each 1X ONCE MC Last administered on 01/19/19 15:30; Start 01/19/19 at 15:30; Stop 01/19/19 at 15:31; Status DC Simvastatin (Zocor) 20 mg HS PO Last administered on 01/22/19 21:47; Start 01/18/19 at 21:00 Heparin Sodium (Porcine) (Heparin Sodium) 5,000 unit Q12HR SQ Last administered on 01/23/19 09:20; Start 01/18/19 at 21:00 Carvedilol (Coreg) 3.125 mg BIDWMEALS PO Last administered on 01/23/19 09:06; Start 01/18/19 at 17:00 Lactobacillus Rhamnosus (Culturelle) 1 cap BID PO Last administered on 01/23/19 09:06; Start 01/18/19 at 21:00 Dextrose 500 ml @ 80 mls/hr 1X ONCE IV Last administered on 01/19/19 11:01; Start 01/19/19 at 10:00; Stop 01/19/19 at 16:14; Status DC Gabapentin (Neurontin) 100 mg BID PO Last administered on 01/20/19at 09:38; Start 01/19/19 at 21:00; Stop 01/20/19 at 16:03; Status DC Potassium Chloride (Klor-Con) 20 meq 1X ONCE PO Last administered on 01/20/19 10:12; Start 01/20/19 at 09:30; Stop 01/20/19 at 09:31; Status DC Gabapentin (Neurontin) 100 mg TID PO Last administered on 01/21/19 08:24; Start 01/20/19 at 21:00; Stop 01/21/19 at 16:10; Status DC Guaifenesin (Mucinex) 600 mg BID PO Last administered on 01/22/19at 08:47; Start 01/21/19 at 10:30; Stop 01/22/19 at 10:00; Status DC Methylprednisolone Sodium Succinate (SOLU-Medrol 40MG VIAL) 40 mg 1X ONCE IV Last administered on 01/21/19at 11:52; Start 01/21/19 at 10:45; Stop 01/21/19 at 10:46; Status DC Methylprednisolone Sodium Succinate (SOLU-Medrol 40MG VIAL) 40 mg DAILY IV Last administered on 01/22/19at 08:58; Start 01/22/19 at 09:00; Stop 01/22/19 at 09:32; Status DC Methylprednisolone Sodium Succinate (SOLU-Medrol 40MG VIAL) 40 mg 1X ONCE IV Last administered on 01/21/19at 16:39; Start 01/21/19 at 15:45; Stop 01/21/19 at 15:46; Status DC Gabapentin (Neurontin) 200 mg TID PO Last administered on 01/23/19 09:05; Start 01/21/19 at 21:00 Methylprednisolone Sodium Succinate (SOLU-Medrol 40MG VIAL) 40 mg [id number] IV Last administered on 01/23/19at 09:04; Start 01/22/19 at 14:00 Ceftriaxone Sodium (Rocephin) 1 gm Q24H IVP Last administered on 01/22/19at 10:30; Start 01/22/19 at 10:00 Guaifenesin (Mucinex) 1,200 mg PRN Q6HRS PRN PO cough Last administered on 01/22/19at 16:50; Start 01/22/19 at 10:00 Acyclovir (Zovirax) 400 mg [id number] PO Last administered on 01/23/19at 09:04; Start 01/22/19 at 14:00 Active Scripts Active Prednisone (Prednisone) 10 Mg Tablet 10 Mg PO UD 9 Days Take 3 tablets by mouth daily for 3 days, then take 2 tablets by mouth daily for 3 days, then take 1 tablets by mouth daily for 3 days. Gabapentin (Gabapentin) 100 Mg Capsule 100 Mg PO TID Proair Hfa (Albuterol Sulfate) 8.5 Gm Hfa.aer.ad 2.5 Mg NEB RTQID Tylenol (Acetaminophen) 325 Mg Tablet 650 Mg PO PRN Q6HRS PRN 30 Days Voltaren (Diclofenac Sodium) 100 Gm Gel..gram. 1 Roz TP BID 30 Days Vitamin B-12 (Cyanocobalamin (Vitamin B-12)) 1,000 Mcg Tablet 1,000 Mcg PO DAILY Reported Fluticasone Propionate Nasal [place] (Fluticasone Propionate) 16 Gm [place].susp 2 [place] NS DAILY Aspir-Low (Aspirin) 81 Mg Tablet.dr 1 Tab PO DAILY Doxazosin Mesylate 8 Mg Tablet 1 Tab PO HS Omeprazole 40 Mg Capsule.dr 1 Cap PO DAILY C-1000 (Ascorbic Acid) 1,000 Mg Tablet.er 1,000 Mg PO DAILY Claritin (Loratadine) 10 Mg Tablet 10 Mg PO DAILY Nitrostat (Nitroglycerin) 0.4 Mg Tab.subl 0.4 Mg SL PRN Q5MIN PRN Flonase Allergy Relief (Fluticasone Propionate) 9.9 Ml [place].susp 2 Sprays NS DAILY Calcium 500-Vit D3 600 Tablet (Calcium Carbonate/Vitamin D3) 1 Each Tablet 1 Each PO DAILY Singulair Tablet (Montelukast Sodium) 10 Mg Tablet 10 Mg PO HS Centrum Silver Tablet (Multivits-Min/Fa/Lycopene/Lut) 1 Each Tablet 1 Each PO DAILY Carvedilol (Carvedilol) 3.125 Mg Tablet 1 Tab PO BID Hydralazine Hcl 25 Mg Tablet 1 Tab PO BID Mirtazapine 7.5 Mg Tablet 7.5 Mg PO HS Simvastatin 20 Mg Tablet 20 Mg PO HS Symbicort 160-4.5 Mcg Inhaler (Budesonide/Formoterol Fumarate) 10.2 Gm Hfa.aer.ad 2 Inhaler IH BID Albuterol Sulfate Conc Neb Soln (Albuterol Sulfate) 2.5 Mg/0.5 Ml Vial.neb 2.5 Mg IH [id number] Vitals/I & O Vital Sign - Last 24 Hours 01/22/19 01/22/19 01/22/19 01/22/19 11:00 11:57 15:00 15:34 Temp 97.2 98.0 97.2 98.0 Pulse 62 62 Resp 18 18 B/P (MAP) 137/63 (87) 130/64 (86) Pulse Ox 98 98 96 98 O2 Delivery Room Air Room Air Room Air Room Air 01/22/19 01/22/19 01/22/19 01/22/19 16:51 19:00 20:00 20:11 Temp 98.3 98.3 Pulse 75 65 Resp 18 B/P (MAP) 124/64 141/71 (94) Pulse Ox 94 96 O2 Delivery Room Air Room Air Room Air 01/22/19 01/22/19 01/22/19 01/22/19 20:12 21:46 21:47 23:00 Temp 98.2 98.2 Pulse 65 65 53 Resp 18 B/P (MAP) 141/71 141/71 151/77 (101) Pulse Ox 96 95 O2 Delivery Room Air Room Air 01/23/19 01/23/19 01/23/19 01/23/19 03:00 07:00 07:40 09:05 Temp 97.3 97.9 97.3 97.9 Pulse 54 72 64 Resp 18 20 B/P (MAP) 118/55 (76) 130/66 (87) 130/66 Pulse Ox 96 94 97 O2 Delivery Room Air Room Air Room Air 01/23/19 09:06 Pulse 64 B/P (MAP) 130/66 Intake and Output 01/22/19 01/22/19 01/23/19 14:59 22:59 06:59 Intake Total 240 ml 500 ml Output Total 1375 ml Balance 240 ml 500 ml -1375 ml ARI PORTILLO MD Jan 23, 2019 10:33
[2019-01-23] MEDS: cefTRIAXone IV Push 1 GM VIAL. IVP SCH (10:39)
--- NOTE | 2019-01-23 11:01 | PDOC ---
Infectious Disease Note Subjective Subjective Feeling better, but wants to stay another day Cough is better Willy SOA/CP/N/V/D/F/C ROS ROS per HPI Vital Sign Vital Signs Vital Signs Date Time Temp Pulse Resp B/P (MAP) Pulse Ox O2 Delivery O2 Flow Rate FiO2 01/23/19 09:06 64 130/66 01/23/19 07:40 97 Room Air 01/23/19 07:00 97.9 20 97.9 Physical Exam PHYSICAL EXAM GENERAL: Sitting in the chair, alert, NAD HENT: Oral cavity pink, + dentures NECK: Supple. LUNGS: Mild congestion LLL. nonlabored HEART: S1, S2 ABDOMEN: Soft, nontender EXTREMITIES: 2+ edema lower extremities, bilaterally DIRECTOR APPOINTMENT: Alert, answer questions appropriately Labs Micro Microbiology 01/17/19 Blood Culture - Final, Complete NO GROWTH AFTER 5 DAYS Objective Assessment AECOPD Bacteremia / bottles 01/16 - Staph hominis - contamination cough but clear sputum - chronic COPD no anterior chest discomfort to suggest bronchitis Compression fracture L3 CKD - stable Sulfa allergy - does not remember reaction but almost killed him Plan Plan of Care Dose Rocephin Steroids Probiotics Acyclovir per primary D/w nursing Attending Co-Sign The patient was seen and interviewed as well as examined at the bedside. The chart was reviewed. The case was discussed. Agree with the plan of care. SCOTT LOWERY APRN Jan 23, 2019 11:00 LEYLA CARRASQUILLO MD Jan 23, 2019 13:40
[2019-01-23 11:30] VITALS: BP 113/54
[2019-01-23 15:50] VITALS: BP 137/66
[2019-01-23] MEDS: POLYETHYLENE GLYCOL 3350 17 GM PACKET. PO SCH (16:49)
[2019-01-23 19:00] VITALS: BP 146/71
[2019-01-23] MEDS: MIRTAZAPINE 7.5 MG TABLET. PO SCH (21:29)
[2019-01-23] MEDS: MONTELUKAST SODIUM 10 MG TABLET. PO SCH (21:29)
[2019-01-23] MEDS: DOXAZOSIN MESYLATE 4 MG TABLET. PO SCH (21:30)
[2019-01-23] MEDS: SIMVASTATIN 20 MG TABLET PO SCH (21:30)
[2019-01-23 23:00] VITALS: BP 138/71
[2019-01-24 03:00] VITALS: BP 141/95
[2019-01-24 07:19] VITALS: BP 133/64
[2019-01-24] MEDS: BUDESONIDE 0.5 MG/2 ML NEBU. NEB SCH ×2 (08:03→20:07)
[2019-01-24] MEDS: ALBUTEROL SULFATE 2.5 MG/3 ML NEBU. NEB SCH ×4 (08:03→20:07)
[2019-01-24] MEDS: CALCIUM CARB/VIT D3 500/200 TABLET. PO SCH (08:20)
[2019-01-24] MEDS: ASCORBIC ACID 500 MG TABLET PO SCH (08:21)
[2019-01-24] MEDS: PANTOPRAZOLE 40 MG TABLET.DR. PO SCH (08:21)
[2019-01-24] MEDS: GABAPENTIN 100 MG CAPSULE. PO SCH ×3 (08:21→20:02)
[2019-01-24] MEDS: LACTOBACILLUS RHAMNOSUS GG 1 CAPSULE. PO SCH ×2 (08:21→20:02)
[2019-01-24] MEDS: MULTIVITAMIN with MINERAL TABLET. PO SCH (08:21)
[2019-01-24] MEDS: CARVEDILOL 3.125 MG TABLET. PO SCH ×2 (08:21→17:13)
[2019-01-24] MEDS: CETIRIZINE HCL 10 MG TABLET. PO SCH (08:21)
[2019-01-24] MEDS: methylPREDNISolone SOD SUCC PF 40 MG/ML VIAL. IV SCH ×2 (08:22→14:15)
[2019-01-24] MEDS: ASPIRIN ENTERIC COATED 81 MG TABLET.DR. PO SCH (08:22)
[2019-01-24] MEDS: CYANOCOBALAMIN (VITAMIN B-12) 1,000 MCG TABLET. PO SCH (08:22)
[2019-01-24] MEDS: hydrALAZINE 25 MG TABLET PO SCH ×2 (08:22→20:02)
[2019-01-24] MEDS: ACYCLOVIR 200 MG CAPSULE. PO SCH ×3 (08:22→20:01)
[2019-01-24] MEDS: POLYETHYLENE GLYCOL 3350 17 GM PACKET. PO SCH (08:23)
[2019-01-24] MEDS: FLUTICASONE 50MCG/NASAL SPRAY 16GM BOTTLE. NS SCH (09:31)
[2019-01-24] MEDS: DICLOFENAC SODIUM 1% TOPICAL GEL 100GM TUBE. TP SCH ×2 (09:31→20:08)
[2019-01-24] MEDS: cefTRIAXone IV Push 1 GM VIAL. IVP SCH (09:32)
[2019-01-24] MEDS: HEPARIN for SUB-Q USE 5,000 UNIT/ML VIAL. SQ SCH ×2 (09:42→20:08)
--- NOTE | 2019-01-24 10:34 | PDOC ---
IM PROGRESS NOTES- Subjective Subjective Feeling worse. Complains of cough and congestion and wheezing and constipation and abdominal pain. Objective Vitals/I&O Vital Signs Date Time Temp Pulse Resp B/P (MAP) Pulse Ox O2 Delivery O2 Flow Rate FiO2 01/24/19 08:22 62 133/64 01/24/19 08:03 95 Room Air 01/24/19 07:19 97.5 20 97.5 I & O 01/23/19 01/23/19 01/24/19 15:00 23:00 07:00 Intake Total 500 ml 450 ml Output Total 200 ml 250 ml Balance 300 ml -250 ml 450 ml Physical Exam Physical Exam General appearance - alert,ill appearing, and in moderate distress and oriented to person, place, and time Mental Status - alert, oriented to person, place, and time, affect appropriate to mood Head - normal Chest -wheezing is improving. Heart - S1 and S2 normal Abdomen - soft, nontender, Neurological - alert and oriented, has tremors Musculoskeletal -unchanged Extremities - no pedal edema Skin - warm and dry Meds Current Medications Medications (Trade) Dose Ordered Sig/Juhi Route PRN Reason Start Time Stop Time Status Last Admin Dose Admin Polyethylene Glycol (miraLAX PACKET) 17 gm DAILY PO 01/23/19 17:00 01/24/19 08:23 Assessment Assessment 1. Gram-positive bacteremia in 2/2 bottles. The patient is asymptomatic. 2. Weakness. 3. Fall. 4. L3 compression fracture, acute on the CT scan of spine; however, the patient states he has no symptoms now. 5. Chronic obstructive pulmonary disease. 6. Dizziness. 7. Chronic kidney disease stage 3. 8. Coronary artery disease. 9. Hypertension. 10. 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 11. Anxiety. PLAN: Consult Dr. Melton for Infectious Disease evaluation and management. Continue IV vancomycin for now, but consider changing to Zyvox if the patient has renal insufficiency. Consult Dr. Bass for rehab evaluation and management because of the falls and weakness and recent likely compression fracture of the L3. The patient has lumbar spinal stenosis that is chronic, along with degenerative changes. For details, please refer to the orders. The patient's back pain is better today. Gram-positive bacteremia- continue IV vancomycin. Blood cultures 2 out of 2 positive for gram-positive bacteria staph- no more info.. Cultures drawn on 01/17 are negative so far L3 compression fracture- discussed with Dr. Bass. No intervention needed. Patient is walking well. Hypernatremia- sodium is 148. Encouraged to increase more fluid intake. I will give him 500 mL of IV D5W. Exacerbation of COPD- started on IV steroids. Improving slowly. Continue IV steroids and Rocephin. Hypokalemia- potassium is 3.6. Replace potassium. Tremors-on gabapentin. Abdominal pain Patient had problems with bedbugs at home and the family is trying to clean the house. Because of his recurrent medical issues I advised him to go to a senior living unit tomorrow if better. Plan Plan For more details regarding further plans, please refer to the orders. MARCELLUS FIERRO MD Jan 24, 2019 10:34
--- NOTE | 2019-01-24 11:48 | PDOC ---
Infectious Disease Note Subjective Subjective Denies worsening cough Constipated, says the MiraLax starting to work Appetite good Walking some Denies SOA/CP/N/V/F/C ROS ROS per HPI Vital Sign Vital Signs Vital Signs Date Time Temp Pulse Resp B/P (MAP) Pulse Ox O2 Delivery O2 Flow Rate FiO2 01/24/19 11:36 Room Air 01/24/19 08:22 62 133/64 01/24/19 08:03 95 01/24/19 07:19 97.5 20 97.5 Physical Exam PHYSICAL EXAM GENERAL: Sitting in the chair, alert, NAD HENT: Oral cavity pink, + dentures NECK: Supple. LUNGS: Mild congestion LLL. nonlabored HEART: S1, S2 ABDOMEN: Soft, nontender EXTREMITIES: 2+ edema lower extremities, bilaterally MAINTENANCE SUPERINTENDENT: Alert, answer questions appropriately Labs Micro Microbiology 01/17/19 Blood Culture - Final, Complete NO GROWTH AFTER 5 DAYS Objective Assessment AECOPD Bacteremia 05/16 bottles 01/16 - Staph hominis - contamination cough but clear sputum - chronic COPD no anterior chest discomfort to suggest bronchitis Compression fracture L3 CKD - stable Sulfa allergy - does not remember reaction but almost killed him Plan Plan of Care Tani (01/22). change to Cefdiner Steroids Probiotics Acyclovir per primary D/w nursing SNF in the works Attending Co-Sign The patient was seen and interviewed as well as examined at the bedside. The chart was reviewed. The case was discussed. Agree with the plan of care. SCOTT LOWERY APRN Jan 24, 2019 11:48 LEYLA CARRASQUILLO MD Jan 24, 2019 12:37
[2019-01-24 11:56] VITALS: BP 125/56
[2019-01-24 15:59] VITALS: BP 135/62
[2019-01-24 19:00] VITALS: BP 137/57
[2019-01-24] MEDS: DOXAZOSIN MESYLATE 4 MG TABLET. PO SCH (20:01)
[2019-01-24] MEDS: CEFDINIR 300 MG CAPSULE PO SCH (20:01)
[2019-01-24] MEDS: MONTELUKAST SODIUM 10 MG TABLET. PO SCH (20:01)
[2019-01-24] MEDS: MIRTAZAPINE 7.5 MG TABLET. PO SCH (20:02)
[2019-01-24] MEDS: SIMVASTATIN 20 MG TABLET PO SCH (20:02)
[2019-01-24 23:03] VITALS: BP 130/68
[2019-01-25 03:03] VITALS: BP 134/69
[2019-01-25 03:06] VITALS: BP 134/69
[2019-01-25 07:00] VITALS: BP 137/67
[2019-01-25] MEDS: BUDESONIDE 0.5 MG/2 ML NEBU. NEB SCH (07:43)
[2019-01-25] MEDS: ALBUTEROL SULFATE 2.5 MG/3 ML NEBU. NEB SCH (07:43)
[2019-01-25] MEDS: CALCIUM CARB/VIT D3 500/200 TABLET. PO SCH (08:20)
[2019-01-25] MEDS: GABAPENTIN 100 MG CAPSULE. PO SCH (08:20)
[2019-01-25 08:21] VITALS: BP 137/67
[2019-01-25] MEDS: hydrALAZINE 25 MG TABLET PO SCH (08:21)
[2019-01-25] MEDS: ASCORBIC ACID 500 MG TABLET PO SCH (08:21)
[2019-01-25] MEDS: CYANOCOBALAMIN (VITAMIN B-12) 1,000 MCG TABLET. PO SCH (08:21)
[2019-01-25] MEDS: CARVEDILOL 3.125 MG TABLET. PO SCH (08:21)
[2019-01-25] MEDS: CETIRIZINE HCL 10 MG TABLET. PO SCH (08:21)
[2019-01-25] MEDS: LACTOBACILLUS RHAMNOSUS GG 1 CAPSULE. PO SCH (08:21)
[2019-01-25] MEDS: DICLOFENAC SODIUM 1% TOPICAL GEL 100GM TUBE. TP SCH (08:22)
[2019-01-25] MEDS: methylPREDNISolone SOD SUCC PF 40 MG/ML VIAL. IV SCH (08:22)
[2019-01-25] MEDS: PANTOPRAZOLE 40 MG TABLET.DR. PO SCH (08:22)
[2019-01-25] MEDS: ASPIRIN ENTERIC COATED 81 MG TABLET.DR. PO SCH (08:22)
[2019-01-25] MEDS: MULTIVITAMIN with MINERAL TABLET. PO SCH (08:22)
[2019-01-25] MEDS: ACYCLOVIR 200 MG CAPSULE. PO SCH (08:22)
[2019-01-25] MEDS: FLUTICASONE 50MCG/NASAL SPRAY 16GM BOTTLE. NS SCH (08:23)
[2019-01-25] MEDS: POLYETHYLENE GLYCOL 3350 17 GM PACKET. PO SCH (08:25)
[2019-01-25] MEDS: HEPARIN for SUB-Q USE 5,000 UNIT/ML VIAL. SQ SCH (08:25)
[2019-01-25] MEDS: CEFDINIR 300 MG CAPSULE PO SCH (08:25)
--- NOTE | 2019-01-25 09:35 | PDOC ---
IM PROGRESS NOTES- Subjective Subjective Feeling much better. Cough and congestion are much better. Mucus is clear. Objective Vitals/I&O Vital Signs Date Time Temp Pulse Resp B/P (MAP) Pulse Ox O2 Delivery O2 Flow Rate FiO2 01/25/19 08:21 63 137/67 01/25/19 08:00 Room Air 01/25/19 07:43 98 01/25/19 07:00 97.8 18 97.8 I & O 01/24/19 01/24/19 01/25/19 14:59 22:59 06:59 Intake Total 560 ml 2000 ml 500 ml Output Total 500 ml Balance 560 ml 2000 ml 0 ml Physical Exam Physical Exam General appearance - alert,ill appearing, and in moderate distress and oriented to person, place, and time Mental Status - alert, oriented to person, place, and time, affect appropriate to mood Head - normal Chest -no wheezing. Increased air entry. Heart - S1 and S2 normal Abdomen - soft, nontender, Neurological - alert and oriented, has tremors Musculoskeletal -unchanged Extremities - no pedal edema Skin - warm and dry Meds Current Medications Medications (Trade) Dose Ordered Sig/Juhi Route PRN Reason Start Time Stop Time Status Last Admin Dose Admin Cefdinir (Omnicef) 300 mg BID PO 01/24/19 21:00 01/25/19 08:25 Assessment Assessment 1. Gram-positive bacteremia in 2/2 bottles. The patient is asymptomatic. 2. Weakness. 3. Fall. 4. L3 compression fracture, acute on the CT scan of spine; however, the patient states he has no symptoms now. 5. Chronic obstructive pulmonary disease. 6. Dizziness. 7. Chronic kidney disease stage 3. 8. Coronary artery disease. 9. Hypertension. 10. 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 11. Anxiety. PLAN: Consult Dr. Melton for Infectious Disease evaluation and management. Continue IV vancomycin for now, but consider changing to Zyvox if the patient has renal insufficiency. Consult Dr. Bass for rehab evaluation and management because of the falls and weakness and recent likely compression fracture of the L3. The patient has lumbar spinal stenosis that is chronic, along with degenerative changes. For details, please refer to the orders. The patient's back pain is better today. Gram-positive bacteremia- continue IV vancomycin. Blood cultures 2 out of 2 positive for gram-positive bacteria staph- no more info.. Cultures drawn on 01/17 are negative so far L3 compression fracture- discussed with Dr. Bass. No intervention needed. Patient is walking well. Hypernatremia- sodium is 148. Encouraged to increase more fluid intake. I will give him 500 mL of IV D5W. Exacerbation of COPD- started on IV steroids. Doing better. Discharge home with home health services on oral steroids. Acute bronchitis- DC Rocephin. Order cefdinir 300 mg twice a day for 4 days. Walked 500 feet with physical therapy. Does not need to go to a longterm. Hypokalemia- potassium is 3.6. Replace potassium. Tremors-on gabapentin. Abdominal pain Patient had problems with bedbugs at home and the family is trying to clean the house. Because of his recurrent medical issues I advised him to go to a fdc unit tomorrow if better. Discharge management 35 minutes. Plan Plan For more details regarding further plans, please refer to the orders. MARCELLUS FIERRO MD Jan 25, 2019 09:35
--- NOTE | 2019-01-25 09:37 | PDOC ---
PROGRESS NOTES Subjective Subjective He feels better. Objective Objective Vital Signs Date Time Temp Pulse Resp B/P (MAP) Pulse Ox O2 Delivery O2 Flow Rate FiO2 01/25/19 08:21 63 137/67 01/25/19 08:00 Room Air 01/25/19 07:43 98 01/25/19 07:00 97.8 18 97.8 Intake and Output 01/25/19 06:59 Intake Total 3060 ml Output Total 500 ml Balance 2560 ml Intake Oral 3060 ml Output Urine Total 500 ml # Voids 10 # Bowel Movements 5 Physical Exam Physical Exam He is sitting up in bedside chair and seems comfortable and he continues to walk with roller walker. Assessment Assessment Problems Medical Problems: (1) Bacteremia Status: Acute (2) Chronic anemia Status: Acute (3) Chronic CHF Status: Acute (4) Compression fx, lumbar spine Status: Acute Plan Plan of Care Agree with plans for home. Comment Review of Relevant I have reviewed the following items tawnya (where applicable) has been applied. Labs Microbiology 01/17/19 Blood Culture - Final, Complete NO GROWTH AFTER 5 DAYS Medications Current Medications Ceftriaxone Sodium (Rocephin) 1 gm 1X ONCE IVP Last administered on 01/17/19at 13:21; Start 01/17/19 at 12:45; Stop 01/17/19 at 12:46; Status DC Vancomycin HCl 250 ml @ 250 mls/hr 1X ONCE IV Last administered on 01/17/19at 13:22; Start 01/17/19 at 12:45; Stop 01/17/19 at 13:44; Status DC Acetaminophen (Tylenol) 650 mg PRN Q6HRS PRN PO MILD PAIN 1-3 Last administered on 01/20/19at 14:21; Start 01/17/19 at 17:30 Aspirin (Ecotrin) 81 mg DAILY PO Last administered on 01/25/19 08:22; Start 01/18/19 at 09:00 Carvedilol (Coreg) 3.125 mg BIDWMEALS PO ; Start 01/17/19 at 18:00; Stop 01/17/19 at 18:00; Status DC Cyanocobalamin (Vitamin B-12) 1,000 mcg DAILY PO Last administered on 01/25/19at 08:21; Start 01/18/19 at 09:00 Diclofenac Sodium (Voltaren) 1 roz BID TP Last administered on 01/25/19 08:22; Start 01/17/19 at 21:00 Fluticasone Propionate (Flonase) 2 spray DAILY NS Last administered on 01/25/19 08:23; Start 01/18/19 at 09:00 Hydralazine HCl (Apresoline) 25 mg BID PO Last administered on 01/25/19 08:21; Start 01/17/19 at 21:00 Mirtazapine (Remeron) 7.5 mg HS PO Last administered on 01/24/19 20:02; Start 01/17/19 at 21:00 Montelukast Sodium (Singulair) 10 mg HS PO Last administered on 01/24/19 20:01; Start 01/17/19 at 21:00 Nitroglycerin (Nitrostat) 0.4 mg PRN Q5MIN PRN SL CHEST PAIN; Start 01/17/19 at 17:30 Non-Formulary Medication (Albuterol Sulfate (Albuterol Sulfate Conc Neb Soln)) 2.5 mg [id number] IH ; Start 01/17/19 at 21:00; Status UNV Ascorbic Acid (Vitamin C) 1,000 mg DAILY PO Last administered on 01/25/19 08:21; Start 01/18/19 at 09:00 Non-Formulary Medication (Budesonide/ Formoterol Fumarate (Symbicort 160-4.5 Mcg Inhaler)) 2 inhaler BID IH ; Start 01/17/19 at 21:00; Status UNV Calcium/Vitamin D (Oscal D 500mg/ 200uts) 1 tab DAILYWBKFT PO Last administered on 01/25/19 08:20; Start 01/18/19 at 08:00 Doxazosin Mesylate (Cardura) 8 mg HS PO Last administered on 01/24/19 20:01; Start 01/17/19 at 21:00 Fluticasone Propionate (Flonase) 2 spray DAILY NS ; Start 01/18/19 at 09:00; Stop 01/18/19 at 11:10; Status DC Cetirizine HCl (ZyrTEC) 10 mg DAILY PO Last administered on 01/25/19 08:21; Start 01/18/19 at 09:00 Multivitamins (Thera M Plus) 1 tab DAILY PO Last administered on 01/25/19 08:22; Start 01/18/19 at 09:00 Pantoprazole Sodium (Protonix) 40 mg DAILYAC PO Last administered on 01/25/19 08:22; Start 01/18/19 at 07:30 Vancomycin HCl (Vanco Per Pharmacy) 1 each PRN DAILY PRN MC SEE COMMENTS Last administered on 01/20/19 13:48; Start 01/17/19 at 17:45; Stop 01/21/19 at 09:22; Status DC Ceftriaxone Sodium (Rocephin) 1 gm Q24H IVP ; Start 01/18/19 at 13:00; Stop 01/18/19 at 10:38; Status DC Budesonide (Pulmicort) 0.5 mg RTBID NEB Last administered on 01/25/19 07:43; Start 01/17/19 at 20:00 Albuterol Sulfate (Ventolin Neb Soln) 2.5 mg RTQID NEB Last administered on 01/25/19 07:43; Start 01/17/19 at 20:00 Vancomycin HCl 750 mg/Sodium Chloride 250 ml @ 250 mls/hr 1X ONCE IV Last administered on 01/17/19 18:23; Start 01/17/19 at 18:00; Stop 01/17/19 at 18:59; Status DC Vancomycin HCl 1 gm/Sodium Chloride 250 ml @ 250 mls/hr Q24H IV Last administered on 01/20/19 16:05; Start 01/18/19 at 16:00; Stop 01/21/19 at 09:22; Status DC Carvedilol (Coreg) 3.125 mg BID PO Last administered on 01/18/19 08:50; Start 01/17/19 at 21:00; Stop 01/18/19 at 14:28; Status DC Vancomycin HCl (Vancomycin Trough Level) 1 each 1X ONCE MC Last administered on 01/19/19 15:30; Start 01/19/19 at 15:30; Stop 01/19/19 at 15:31; Status DC Simvastatin (Zocor) 20 mg HS PO Last administered on 01/24/19 20:02; Start 01/18/19 at 21:00 Heparin Sodium (Porcine) (Heparin Sodium) 5,000 unit Q12HR SQ Last administered on 10/13/19at 20:08; Start 01/18/19 at 21:00 Carvedilol (Coreg) 3.125 mg BIDWMEALS PO Last administered on 01/25/19 08:21; Start 01/18/19 at 17:00 Lactobacillus Rhamnosus (Culturelle) 1 cap BID PO Last administered on 01/25/19 08:21; Start 01/18/19 at 21:00 Dextrose 500 ml @ 80 mls/hr 1X ONCE IV Last administered on 01/19/19 11:01; Start 01/19/19 at 10:00; Stop 01/19/19 at 16:14; Status DC Gabapentin (Neurontin) 100 mg BID PO Last administered on 01/20/19 09:38; Start 01/19/19 at 21:00; Stop 01/20/19 at 16:03; Status DC Potassium Chloride (Klor-Con) 20 meq 1X ONCE PO Last administered on 01/20/19at 10:12; Start 01/20/19 at 09:30; Stop 01/20/19 at 09:31; Status DC Gabapentin (Neurontin) 100 mg TID PO Last administered on 01/21/19 08:24; Start 01/20/19 at 21:00; Stop 01/21/19 at 16:10; Status DC Guaifenesin (Mucinex) 600 mg BID PO Last administered on 01/22/19 08:47; Start 01/21/19 at 10:30; Stop 01/22/19 at 10:00; Status DC Methylprednisolone Sodium Succinate (SOLU-Medrol 40MG VIAL) 40 mg 1X ONCE IV Last administered on 01/21/19at 11:52; Start 01/21/19 at 10:45; Stop 01/21/19 at 10:46; Status DC Methylprednisolone Sodium Succinate (SOLU-Medrol 40MG VIAL) 40 mg DAILY IV Last administered on 01/22/19at 08:58; Start 01/22/19 at 09:00; Stop 01/22/19 at 09:32; Status DC Methylprednisolone Sodium Succinate (SOLU-Medrol 40MG VIAL) 40 mg 1X ONCE IV Last administered on 01/21/19 16:39; Start 01/21/19 at 15:45; Stop 01/21/19 at 15:46; Status DC Gabapentin (Neurontin) 200 mg TID PO Last administered on 01/25/19 08:20; Start 01/21/19 at 21:00 Methylprednisolone Sodium Succinate (SOLU-Medrol 40MG VIAL) 40 mg [id number] IV Last administered on 01/25/19 08:22; Start 01/22/19 at 14:00; Stop 01/25/19 at 09:11; Status DC Ceftriaxone Sodium (Rocephin) 1 gm Q24H IVP Last administered on 01/24/19 09:32; Start 01/22/19 at 10:00; Stop 01/24/19 at 12:35; Status DC Guaifenesin (Mucinex) 1,200 mg PRN Q6HRS PRN PO cough Last administered on 01/24/19 03:25; Start 01/22/19 at 10:00 Acyclovir (Zovirax) 400 mg [id number] PO Last administered on 01/25/19 08:22; Start 01/22/19 at 14:00 Polyethylene Glycol (miraLAX PACKET) 17 gm DAILY PO Last administered on 08:23; Start 01/23/19 at 17:00 Cefdinir (Omnicef) 300 mg BID PO Last administered on 01/25/19 08:25; Start 01/24/19 at 21:00 Active Scripts Active Prednisone (Prednisone) 10 Mg Tablet 10 Mg PO UD 9 Days Take 3 tablets by mouth daily for 3 days, then take 2 tablets by mouth daily for 3 days, then take 1 tablets by mouth daily for 3 days. Gabapentin (Gabapentin) 100 Mg Capsule 100 Mg PO TID Proair Hfa (Albuterol Sulfate) 8.5 Gm Hfa.aer.ad 2.5 Mg NEB RTQID Tylenol (Acetaminophen) 325 Mg Tablet 650 Mg PO PRN Q6HRS PRN 30 Days Voltaren (Diclofenac Sodium) 100 Gm Gel..gram. 1 Roz TP BID 30 Days Vitamin B-12 (Cyanocobalamin (Vitamin B-12)) 1,000 Mcg Tablet 1,000 Mcg PO DAILY Reported Fluticasone Propionate Nasal [place] (Fluticasone Propionate) 16 Gm [place].susp 2 [place] NS DAILY Aspir-Low (Aspirin) 81 Mg Tablet.dr 1 Tab PO DAILY Doxazosin Mesylate 8 Mg Tablet 1 Tab PO HS Omeprazole 40 Mg Capsule.dr 1 Cap PO DAILY C-1000 (Ascorbic Acid) 1,000 Mg Tablet.er 1,000 Mg PO DAILY Claritin (Loratadine) 10 Mg Tablet 10 Mg PO DAILY Nitrostat (Nitroglycerin) 0.4 Mg Tab.subl 0.4 Mg SL PRN Q5MIN PRN Flonase Allergy Relief (Fluticasone Propionate) 9.9 Ml [place].susp 2 Sprays NS DAILY Calcium 500-Vit D3 600 Tablet (Calcium Carbonate/Vitamin D3) 1 Each Tablet 1 Each PO DAILY Singulair Tablet (Montelukast Sodium) 10 Mg Tablet 10 Mg PO HS Centrum Silver Tablet (Multivits-Min/Fa/Lycopene/Lut) 1 Each Tablet 1 Each PO DAILY Carvedilol (Carvedilol) 3.125 Mg Tablet 1 Tab PO BID Hydralazine Hcl 25 Mg Tablet 1 Tab PO BID Mirtazapine 7.5 Mg Tablet 7.5 Mg PO HS Simvastatin 20 Mg Tablet 20 Mg PO HS Symbicort 160-4.5 Mcg Inhaler (Budesonide/Formoterol Fumarate) 10.2 Gm Hfa.aer.ad 2 Inhaler IH BID Albuterol Sulfate Conc Neb Soln (Albuterol Sulfate) 2.5 Mg/0.5 Ml Vial.neb 2.5 Mg IH [id number] Vitals/I & O Vital Sign - Last 24 Hours 01/24/19 01/24/19 01/24/19 01/24/19 11:36 11:56 15:59 16:36 Temp 97.8 97.8 97.8 97.8 Pulse 62 63 Resp 18 18 B/P (MAP) 125/56 (79) 135/62 (86) Pulse Ox 98 97 O2 Delivery Room Air Room Air Room Air Room Air 01/24/19 01/24/19 01/24/19 01/24/19 17:13 19:00 20:01 20:02 Temp 97.6 97.6 Pulse 63 63 63 63 Resp 20 B/P (MAP) 135/62 137/57 (83) 137/57 137/57 Pulse Ox 98 O2 Delivery Room Air 01/24/19 01/24/19 01/24/19 01/25/19 20:10 20:11 23:03 03:06 Temp 97.4 97.8 97.4 97.8 Pulse 56 61 Resp 20 20 B/P (MAP) 130/68 (88) 134/69 (90) Pulse Ox 100 97 95 O2 Delivery Room Air Room Air Room Air Room Air 01/25/19 01/25/19 01/25/19 01/25/19 07:00 07:43 08:00 08:21 Temp 97.8 97.8 Pulse 63 63 Resp 18 B/P (MAP) 137/67 (90) 137/67 Pulse Ox 100 98 O2 Delivery Room Air Room Air Room Air 01/25/19 08:21 Pulse 63 B/P (MAP) 137/67 Intake and Output 01/24/19 01/24/19 01/25/19 14:59 22:59 06:59 Intake Total 560 ml 2000 ml 500 ml Output Total 500 ml Balance 560 ml 2000 ml 0 ml ARI PORTILLO MD Jan 25, 2019 09:37
[2019-01-25] MEDS ORDERED: CEFD300C PO (09:39)
--- NOTE | 2019-01-25 09:59 | NUR ---
Discharge Note: BASHIR ARROYO W5 [facility] Discharge instructions and discharge home medications reviewed with Patient and a copy given. All questions have been answered and understanding verbalized. The following instructions and handouts were given: d/c instructions Discontinued lines and drains: Peripheral IV intact. Patient discharged to Home w/services with Family Member via Wheelchair
--- NOTE | 2019-01-25 10:13 | PDOC ---
Infectious Disease Note Subjective Subjective feeling good ROS ROS no n/v/d/sob Vital Sign Vital Signs Vital Signs Date Time Temp Pulse Resp B/P (MAP) Pulse Ox O2 Delivery O2 Flow Rate FiO2 01/25/19 08:21 63 137/67 01/25/19 08:00 Room Air 01/25/19 07:43 98 01/25/19 07:00 97.8 18 97.8 Physical Exam PHYSICAL EXAM GENERAL: Sitting in the chair, alert, NAD HENT: Oral cavity pink, + dentures NECK: Supple. LUNGS: Mild congestion LLL. nonlabored HEART: S1, S2 ABDOMEN: Soft, nontender EXTREMITIES: 2+ edema lower extremities, bilaterally PAINT AND TABLE EDGER: Alert, answer questions appropriately Labs Micro Microbiology 01/17/19 Blood Culture - Final, Complete NO GROWTH AFTER 5 DAYS Objective Assessment AECOPD Bacteremia 2/2 bottles 01/16 - Staph hominis - contamination cough but clear sputum - chronic COPD no anterior chest discomfort to suggest bronchitis Compression fracture L3 CKD - stable Sulfa allergy - does not remember reaction but almost killed him Plan Plan of Care cefdinir Steroids Probiotics Acyclovir per primary D/w nursing LEYLA CARRASQUILLO MD Jan 25, 2019 10:13
--- NOTE | 2019-01-25 12:59 | PDOC ---
PROGRESS NOTES Assessment Problems Medical Problems: (1) Bacteremia Status: Acute (2) Chronic anemia Status: Acute (3) Chronic CHF Status: Acute (4) Compression fx, lumbar spine Status: Acute Essential tremor Generalized weakness. Falls. Sepsis? Renal failure. CAD s/p stents placement. HTN. HLD. COPD. Anemia. L3 acute compression fracture. Degenerative spine disease. Plan Continue current regimen Patient can follow up with myself or Dr. Llanos in 4-6 weeks Subjective Still has tremor Objective Vital Signs Date Time Temp Pulse Resp B/P (MAP) Pulse Ox O2 Delivery O2 Flow Rate FiO2 01/25/19 08:21 63 137/67 01/25/19 08:00 Room Air 01/25/19 07:43 98 01/25/19 07:00 97.8 18 97.8 Intake and Output 01/25/19 07:00 Intake Total 3060 ml Output Total 500 ml Balance 2560 ml Intake Oral 3060 ml Output Urine Total 500 ml # Voids 10 # Bowel Movements 5 PHYSICAL EXAM Alert. Oriented to time, place and person. PERRL. EOMI. CN: no focal findings. Muscle tone: normal. Muscle strength: 4/5 DTR: 1+ Plantar reflex: flexor Gait: not examined in bed. Sensory exam: no abnormal findings. No cerebellar signs elicited. Mild postural tremor Review of Relevant I have reviewed the following items tawnay (where applicable) has been applied. Labs Microbiology 01/17/19 Blood Culture - Final, Complete NO GROWTH AFTER 5 DAYS Medications Current Medications Ceftriaxone Sodium (Rocephin) 1 gm 1X ONCE IVP Last administered on 01/17/19 13:21; Start 01/17/19 at 12:45; Stop 01/17/19 at 12:46; Status DC Vancomycin HCl 250 ml @ 250 mls/hr 1X ONCE IV Last administered on 01/17/19 13:22; Start 01/17/19 at 12:45; Stop 01/17/19 at 13:44; Status DC Acetaminophen (Tylenol) 650 mg PRN Q6HRS PRN PO MILD PAIN 1-3 Last administered on 01/20/19at 14:21; Start 01/17/19 at 17:30; Stop 01/25/19 at 10:40; Status DC Aspirin (Ecotrin) 81 mg DAILY PO Last administered on 01/25/19at 08:22; Start 01/18/19 at 09:00; Stop 01/25/19 at 10:40; Status DC Carvedilol (Coreg) 3.125 mg BIDWMEALS PO ; Start 01/17/19 at 18:00; Stop 01/17/19 at 18:00; Status DC Cyanocobalamin (Vitamin B-12) 1,000 mcg DAILY PO Last administered on 01/25/19at 08:21; Start 01/18/19 at 09:00; Stop 01/25/19 at 10:40; Status DC Diclofenac Sodium (Voltaren) 1 roz BID TP Last administered on 01/25/19at 08:22; Start 01/17/19 at 21:00; Stop 01/25/19 at 10:40; Status DC Fluticasone Propionate (Flonase) 2 spray DAILY NS Last administered on 01/25/19at 08:23; Start 01/18/19 at 09:00; Stop 01/25/19 at 10:40; Status DC Hydralazine HCl (Apresoline) 25 mg BID PO Last administered on 01/25/19at 08:2 1; Start 01/17/19 at 21:00; Stop 01/25/19 at 10:40; Status DC Mirtazapine (Remeron) 7.5 mg HS PO Last administered on 01/24/19at 20:02; Start 01/17/19 at 21:00; Stop 01/25/19 at 10:40; Status DC Montelukast Sodium (Singulair) 10 mg HS PO Last administered on 01/24/19at 20:01; Start 01/17/19 at 21:00; Stop 01/25/19 at 10:40; Status DC Nitroglycerin (Nitrostat) 0.4 mg PRN Q5MIN PRN SL CHEST PAIN; Start 01/17/19 at 17:30; Stop 01/25/19 at 10:40; Status DC Non-Formulary Medication (Albuterol Sulfate (Albuterol Sulfate Conc Neb Soln)) 2.5 mg [id number] IH ; Start 01/17/19 at 21:00; Status UNV Ascorbic Acid (Vitamin C) 1,000 mg DAILY PO Last administered on 01/25/19at 08:21; Start 01/18/19 at 09:00; Stop 01/25/19 at 10:40; Status DC Non-Formulary Medication (Budesonide/ Formoterol Fumarate (Symbicort 160-4.5 Mcg Inhaler)) 2 inhaler BID IH ; Start 01/17/19 at 21:00; Status UNV Calcium/Vitamin D (Oscal D 500mg/ 200uts) 1 tab DAILYWBKFT PO Last administered on 01/25/19at 08:20; Start 01/18/19 at 08:00; Stop 01/25/19 at 10:40; Status DC Doxazosin Mesylate (Cardura) 8 mg HS PO Last administered on 01/24/19at 20:01; Start 01/17/19 at 21:00; Stop 01/25/19 at 10:40; Status DC Fluticasone Propionate (Flonase) 2 spray DAILY NS ; Start 01/18/19 at 09:00; St op 01/18/19 at 11:10; Status DC Cetirizine HCl (ZyrTEC) 10 mg DAILY PO Last administered on 01/25/19at 08:21; Start 01/18/19 at 09:00; Stop 01/25/19 at 10:40; Status DC Multivitamins (Thera M Plus) 1 tab DAILY PO Last administered on 01/25/19at 08:22; Start 01/18/19 at 09:00; Stop 01/25/19 at 10:40; Status DC Pantoprazole Sodium (Protonix) 40 mg DAILYAC PO Last administered on 01/25/19at 08:22; Start 01/18/19 at 07:30; Stop 01/25/19 at 10:40; Status DC Vancomycin HCl (Vanco Per Pharmacy) 1 each PRN DAILY PRN MC SEE COMMENTS Last administered on 01/20/19at 13:48; Start 01/17/19 at 17:45; Stop 01/21/19 at 09:22; Status DC Ceftriaxone Sodium (Rocephin) 1 gm Q24H IVP ; Start 01/18/19 at 13:00; Stop 01/18/19 at 10:38; Status DC Budesonide (Pulmicort) 0.5 mg RTBID NEB Last administered on 01/25/19at 07:43; Start 01/17/19 at 20:00; Stop 01/25/19 at 10:40; Status DC Albuterol Sulfate (Ventolin Neb Soln) 2.5 mg RTQID NEB Last administered on 01/25/19at 07:43; Start 01/17/19 at 20:00; Stop 01/25/19 at 10:40; Status DC Vancomycin HCl 750 mg/Sodium Chloride 250 ml @ 250 mls/hr 1X ONCE IV Last administered on 01/17/19at 18:23; Start 01/17/19 at 18:00; Stop 01/17/19 at 18:59; Status DC Vancomycin HCl 1 gm/Sodium Chloride 250 ml @ 250 mls/hr Q24H IV Last administered on 01/20/19at 16:05; Start 01/18/19 at 16:00; Stop 01/21/19 at 09:22; Status DC Carvedilol (Coreg) 3.125 mg BID PO Last administered on 01/18/19at 08:50; Start 01/17/19 at 21:00; Stop 01/18/19 at 14:28; Status DC Vancomycin HCl (Vancomycin Trough Level) 1 each 1X ONCE MC Last administered on 01/19/19at 15:30; Start 01/19/19 at 15:30; Stop 01/19/19 at 15:31; Status DC Simvastatin (Zocor) 20 mg HS PO Last administered on 01/24/19at 20:02; Start 01/18/19 at 21:00; Stop 01/25/19 at 10:40; Status DC Heparin Sodium (Porcine) (Heparin Sodium) 5,000 unit Q12HR SQ Last administered on 01/24/19at 20:08; Start 01/18/19 at 21:00; Stop 01/25/19 at 10:40; Status DC Carvedilol (Coreg) 3.125 mg BIDWMEALS PO Last administered on 01/25/19at 08:21; Start 01/18/19 at 17:00; Stop 01/25/19 at 10:40; Status DC Lactobacillus Rhamnosus (Culturelle) 1 cap BID PO Last administered on 01/25/19at 08:21; Start 01/18/19 at 21:00; Stop 01/25/19 at 10:40; Status DC Dextrose 500 ml @ 80 mls/hr 1X ONCE IV Last administered on 01/19/19at 11:01; Start 01/19/19 at 10:00; Stop 01/19/19 at 16:14; Status DC Gabapentin (Neurontin) 100 mg BID PO Last administered on 01/20/19at 09:38; Start 01/19/19 at 21:00; Stop 01/20/19 at 16:03; Status DC Potassium Chloride (Klor-Con) 20 meq 1X ONCE PO Last administered on 01/20/19at 10:12; Start 01/20/19 at 09:30; Stop 01/20/19 at 09:31; Status DC Gabapentin (Neurontin) 100 mg TID PO Last administered on 01/21/19at 08:24; Start 01/20/19 at 21:00; Stop 01/21/19 at 16:10; Status DC Guaifenesin (Mucinex) 600 mg BID PO Last administered on 01/22/19at 08:47; Start 01/21/19 at 10:30; Stop 01/22/19 at 10:00; Status DC Methylprednisolone Sodium Succinate (SOLU-Medrol 40MG VIAL) 40 mg 1X ONCE IV Last administered on 01/21/19at 11:52; Start 01/21/19 at 10:45; Stop 01/21/19 at 10:46; Status DC Methylprednisolone Sodium Succinate (SOLU-Medrol 40MG VIAL) 40 mg DAILY IV Last administered on 01/22/19at 08:58; Start 01/22/19 at 09:00; Stop 01/22/19 at 09:32; Status DC Methylprednisolone Sodium Succinate (SOLU-Medrol 40MG VIAL) 40 mg 1X ONCE IV Last administered on 01/21/19at 16:39; Start 01/21/19 at 15:45; Stop 01/21/19 at 15:46; Status DC Gabapentin (Neurontin) 200 mg TID PO Last administered on 01/25/19at 08:20; Start 01/21/19 at 21:00; Stop 01/25/19 at 10:40; Status DC Methylprednisolone Sodium Succinate (SOLU-Medrol 40MG VIAL) 40 mg [id number] IV Last administered on 01/25/19 08:22; Start 01/22/19 at 14:00; Stop 01/25/19 at 09:11; Status DC Ceftriaxone Sodium (Rocephin) 1 gm Q24H IVP Last administered on 10/13/19at 09:32; Start 01/22/19 at 10:00; Stop 01/24/19 at 12:35; Status DC Guaifenesin (Mucinex) 1,200 mg PRN Q6HRS PRN PO cough Last administered on 01/24/19at 03:25; Start 01/22/19 at 10:00; Stop 01/25/19 at 10:40; Status DC Acyclovir (Zovirax) 400 mg [id number] PO Last administered on 01/25/19at 08:22; Start 01/22/19 at 14:00; Stop 01/25/19 at 10:40; Status DC Polyethylene Glycol (miraLAX PACKET) 17 gm DAILY PO Last administered on 01/24/19at 08:23; Start 01/23/19 at 17:00; Stop 01/25/19 at 10:40; Status DC Cefdinir (Omnicef) 300 mg BID PO Last administered on 01/25/19at 08:25; Start 01/24/19 at 21:00; Stop 01/25/19 at 10:40; Status DC Active Scripts Active Cefdinir 300 Mg Capsule 1 Cap PO BID Prednisone (Prednisone) 10 Mg Tablet 10 Mg PO UD 9 Days Take 3 tablets by mouth daily for 3 days, then take 2 tablets by mouth daily for 3 days, then take 1 tablets by mouth daily for 3 days. Gabapentin (Gabapentin) 100 Mg Capsule 100 Mg PO TID Proair Hfa (Albuterol Sulfate) 8.5 Gm Hfa.aer.ad 2.5 Mg NEB RTQID Tylenol (Acetaminophen) 325 Mg Tablet 650 Mg PO PRN Q6HRS PRN 30 Days Voltaren (Diclofenac Sodium) 100 Gm Gel..gram. 1 Roz TP BID 30 Days Vitamin B-12 (Cyanocobalamin (Vitamin B-12)) 1,000 Mcg Tablet 1,000 Mcg PO DAILY Reported Fluticasone Propionate Nasal [place] (Fluticasone Propionate) 16 Gm [place].susp 2 [place] NS DAILY Aspir-Low (Aspirin) 81 Mg Tablet.dr 1 Tab PO DAILY Doxazosin Mesylate 8 Mg Tablet 1 Tab PO HS Omeprazole 40 Mg Capsule.dr 1 Cap PO DAILY C-1000 (Ascorbic Acid) 1,000 Mg Tablet.er 1,000 Mg PO DAILY Claritin (Loratadine) 10 Mg Tablet 10 Mg PO DAILY Nitrostat (Nitroglycerin) 0.4 Mg Tab.subl 0.4 Mg SL PRN Q5MIN PRN Flonase Allergy Relief (Fluticasone Propionate) 9.9 Ml [place].susp 2 Sprays NS DAILY Calcium 500-Vit D3 600 Tablet (Calcium Carbonate/Vitamin D3) 1 Each Tablet 1 Each PO DAILY Singulair Tablet (Montelukast Sodium) 10 Mg Tablet 10 Mg PO HS Centrum Silver Tablet (Multivits-Min/Fa/Lycopene/Lut) 1 Each Tablet 1 Each PO DAILY Carvedilol (Carvedilol) 3.125 Mg Tablet 1 Tab PO BID Hydralazine Hcl 25 Mg Tablet 1 Tab PO BID Mirtazapine 7.5 Mg Tablet 7.5 Mg PO HS Simvastatin 20 Mg Tablet 20 Mg PO HS Symbicort 160-4.5 Mcg Inhaler (Budesonide/Formoterol Fumarate) 10.2 Gm Hfa.aer.ad 2 Inhaler IH BID Albuterol Sulfate Conc Neb Soln (Albuterol Sulfate) 2.5 Mg/0.5 Ml Vial.neb 2.5 Mg IH [id number] Vitals/I & O Vital Sign - Last 24 Hours 01/24/19 01/24/19 01/24/19 01/24/19 15:59 16:36 17:13 19:00 Temp 97.8 97.6 97.8 97.6 Pulse 63 63 63 Resp 18 20 B/P (MAP) 135/62 (86) 135/62 137/57 (83) Pulse Ox 97 98 O2 Delivery Room Air Room Air Room Air 01/24/19 01/24/19 01/24/19 01/24/19 20:01 20:02 20:10 20:11 Pulse 63 63 B/P (MAP) 137/57 137/57 Pulse Ox 100 O2 Delivery Room Air Room Air 01/24/19 01/25/19 01/25/19 01/25/19 23:03 03:06 07:00 07:43 Temp 97.4 97.8 97.8 97.4 97.8 97.8 Pulse 56 61 63 Resp 20 20 18 B/P (MAP) 130/68 (88) 134/69 (90) 137/67 (90) Pulse Ox 97 95 100 98 O2 Delivery Room Air Room Air Room Air Room Air 01/25/19 01/25/19 01/25/19 08:00 08:21 08:21 Pulse 63 63 B/P (MAP) 137/67 137/67 O2 Delivery Room Air Intake and Output 01/24/19 01/24/19 01/25/19 15:00 23:00 07:00 Intake Total 560 ml 2000 ml 500 ml Output Total 500 ml Balance 560 ml 2000 ml 0 ml RAFI JUDD MD Jan 25, 2019 12:59
--- NOTE | 2019-01-25 13:56 | NUR ---
Late note: KRISHAN consulted for SNU eval. PT notes reviewed and pt has ambulated 500ft with a walker. Pt also will not been needing IV abx upon dc. Spoke with pt and pt agreeable with [facility]. KRISHAN phoned and faxed orders to [facility]. Pt has been accepted on HH services. Discussed with RN and Physician.
== END 2019-01-25 10:39 | disposition home health service (06) | DRG 191 ==
LOC: ER 11:54 → 6 SOUTH 11:56 → 5 SOUTH 13:51
PROVIDERS: ADMIT Internal Medicine; ATTEND Internal Medicine
DX: J44.0 Chronic obstructive pulmonary disease with (acute) lower respiratory infection (principal); M48.56XA Collapsed vertebra, not elsewhere classified, lumbar region, initial encounter for fracture; I13.0 Hypertensive heart and chronic kidney disease with heart failure and stage 1 through stage 4 chronic kidney disease, or unspecified chronic kidney disease; E87.0 Hyperosmolality and hypernatremia; R78.81 Bacteremia; J44.1 Chronic obstructive pulmonary disease with (acute) exacerbation; J20.9 Acute bronchitis, unspecified; E11.22 Type 2 diabetes mellitus with diabetic chronic kidney disease; D64.9 Anemia, unspecified; B96.89 Other specified bacterial agents as the cause of diseases classified elsewhere; E78.00 Pure hypercholesterolemia, unspecified; E78.5 Hyperlipidemia, unspecified; E87.6 Hypokalemia; F41.9 Anxiety disorder, unspecified; G25.0 Essential tremor; H35.30 Unspecified macular degeneration; I25.10 Atherosclerotic heart disease of native coronary artery without angina pectoris; T38.0X5A Adverse effect of glucocorticoids and synthetic analogues, initial encounter; I25.2 Old myocardial infarction; I50.9 Heart failure, unspecified; K21.9 Gastro-esophageal reflux disease without esophagitis; K59.00 Constipation, unspecified; M15.9 Polyosteoarthritis, unspecified; M48.061 Spinal stenosis, lumbar region without neurogenic claudication; N18.3 Chronic kidney disease, stage 3 (moderate); N40.0 Benign prostatic hyperplasia without lower urinary tract symptoms; B95.8 Unspecified staphylococcus as the cause of diseases classified elsewhere; Z79.899 Other long term (current) drug therapy; Z82.49 Family history of ischemic heart disease and other diseases of the circulatory system; Z86.19 Personal history of other infectious and parasitic diseases; Z86.718 Personal history of other venous thrombosis and embolism; Z87.19 Personal history of other diseases of the digestive system; Z87.891 Personal history of nicotine dependence; Z88.2 Allergy status to sulfonamides; Z90.49 Acquired absence of other specified parts of digestive tract; Z95.5 Presence of coronary angioplasty implant and graft; W18.39XA Other fall on same level, initial encounter; Y93.89 Activity, other specified; Y92.89 Other specified places as the place of occurrence of the external cause; Y99.8 Other external cause status; E11.42 Type 2 diabetes mellitus with diabetic polyneuropathy
CPT/HCPCS: 36415; 70450; 71045; 72131; 80048; 80053; 80202; 81001; 82550; 82607; 83605; 83735; 83880; 84443; 84484; 85025; 85610; 87040; 87077; 87205; 93005; 94640; 94760; 95816; 96365; 96375; J0696; J1644; J2920; J3370; J7050; J7613; J7626; 97110; 97116; 97530; 97535; 99285-25; G0378; J7030

== ENCOUNTER 2019-01-27 14:05 | Inpatient (IN) | payer BC ==
[~2019-01-27] VITALS: Ht 163.8 cm; Wt 69.1 kg
[~2019-01-27 14:05] MED LIST changes: +ALBU2.5V8 NEB; +ASPI81TA50 PO; +CEFD300C PO; +DOXA8TAB59 PO; +GABA-585 PO; +SIMV20TA18 PO; -SIMV20TA3 PO
[2019-01-27 14:57] LABS: BASO % 0 % (0-3); EOS # 0.3 x10^3/uL (0.0-0.7); EOS % 4 % (0-3); HEMATOCRIT 26.1 % (39.0-53.0); HEMOGLOBIN 8.5 g/dL (13.0-17.5); LYMPH # 0.8 x10^3/uL (1.0-4.8); LYMPH % 12 % (24-48); MEAN CORPUSCULAR HEMOGLOBIN 28 pg (25-35); MEAN CORPUSCULAR HGB CONC 33 g/dL (31-37); MEAN CORPUSCULAR VOLUME 86 fL (79-100); MONO # 0.4 x10^3/uL (0.0-1.1); MONO % 6 % (0-9); NEUT # 5.6 x10^3/uL (1.8-7.7); NEUT % 78 % (31-73); PLATELET COUNT 280 x10^3/uL (140-400); RED BLOOD COUNT 3.02 x10^6/uL (4.30-5.70); RED CELL DISTRIBUTION WIDTH 16.4 % (11.5-14.5); WHITE BLOOD COUNT 7.2 x10^3/uL (4.0-11.0)
[2019-01-27 15:04] LABS: CALCIUM 8.2 mg/dL (8.5-10.1); CREATININE 2.1 mg/dL (0.7-1.3); GFR 30.2; POTASSIUM 4.9 mmol/L (3.5-5.1)
[2019-01-27 15:10] LABS: ALBUMIN 3.2 g/dL (3.4-5.0); ALBUMIN/GLOBULIN RATIO 1.2 (1.0-1.7); MAGNESIUM 2.4 mg/dL (1.8-2.4); TOTAL BILIRUBIN 0.3 mg/dL (0.2-1.0); TOTAL PROTEIN 5.9 g/dL (6.4-8.2)
[2019-01-27 15:23] LABS: % BANDS 1 % (0-9); % EOS 5 % (0-5); % LYMPHS 9 % (24-48); % MONOS 6 % (0-10); % MYELOS 2 % (0-0); % SEGS 77 % (35-66); OVALOCYTES FEW; PLT ESTIMATE ADEQUATE (ADEQUATE)
[2019-01-27 15:38] LABS: PROTHROMBIN TIME PATIENT 13.1 SEC (11.7-14.0)
[2019-01-27 15:42] LABS: BILIRUBIN,URINE NEGATIVE (NEG); CLARITY,URINE CLEAR; COLOR,URINE YELLOW; NITRITE,URINE NEGATIVE (NEG); PROTEIN,URINE NEGATIVE (NEG-TRACE); UROBILINOGEN,URINE 0.2 mg/dL (0.2 mg/dL)
[2019-01-27 15:47] LABS: BACTERIA,URINE 0 /HPF (0-FEW); HYALINE CASTS, URINE FEW /HPF; RBC,URINE 0 /HPF (0-2); WBC,URINE OCC /HPF (0-4)
--- NOTE | 2019-01-27 15:58 | RAD ---
Examination: RIBS RIGHT AND PA CHEST History: Fall and injury Comparison/Correlation: 01/17/2019 portable chest x-ray exam Findings: AP upright frontal view chest was obtained. 3 images of the right ribs in addition also provided. Heart size is borderline. No pleural effusion or pneumothorax. No infiltrate. Osteopenia noted. No acute right rib fracture. Old right sixth rib fracture anteriorly is suggested. Biapical pleural thickening is present. Inferior vena cava filter is partially seen. Impression: No infiltrate. Osteopenia. No acute right rib fracture. Electronically signed by: Eduardo Willson MD (01/27/2019 3:55 PM) [facility]
--- NOTE | 2019-01-27 16:14 | PHYS DOC ---
Past Medical History Past Medical History: Anemia, CHF, COPD, DVT, High Cholesterol, Hypertension, MD Additional Past Medical Histor: 69-75% BLOCKAGE TO RIGHT COROTID Past Surgical History: Appendectomy, Other Additional Past Surgical Histo: cardiac stents, ABD SURGERY Alcohol Use: Rarely Drug Use: None Adult General Chief Complaint Chief Complaint: RIB PAIN HPI HPI Patient is a 83 year old male patient who presents via EMS with complaining of fall and injury to right chest. Patient was admitted between January 17 to January 25 because of fall and the compression fracture and bacteremia. Patient states he had another fall couple days ago and injured his right side of his chest without head injury and other injuries. Patient denies fever and chills, focal neuro deficit, fever and chills. Patient does not want to have pain medication in ER. Patient is a poor historian. Review of Systems Review of Systems Constitutional: Denies fever or chills [] Eyes: Denies change in visual acuity, redness, or eye pain [] HENT: Denies nasal congestion or sore throat [] Respiratory: Denies cough or shortness of breath [] Cardiovascular: No additional information not addressed in HPI [] GI: Denies abdominal pain, nausea, vomiting, bloody stools or diarrhea [] : Denies dysuria or hematuria [] Musculoskeletal: Denies back pain or joint pain [] Integument: Denies rash or skin lesions [] Neurologic: Denies headache, focal weakness or sensory changes [] Endocrine: Denies polyuria or polydipsia [] All other systems were reviewed and found to be within normal limits, except as documented in this note. Allergies Allergies Allergies Coded Allergies Type Severity Reaction Last Updated Verified Sulfa (Sulfonamide Antibiotics) Allergy Severe 01/22/19 Yes clopidogrel Allergy Intermediate 09/08/18 Yes valsartan Allergy Intermediate 09/08/18 Yes warfarin Allergy Intermediate 09/08/18 Yes Physical Exam Physical Exam Constitutional: Well nourished, mild distress, non-toxic appearance. [] HENT: Normocephalic, atraumatic. Eyes: PERRLA, EOMI, conjunctiva normal, no discharge. [] Neck: Normal range of motion, no tenderness, supple, no stridor. [] Cardiovascular:Heart rate regular rhythm, no murmur [] Lungs & Thorax: Bilateral breath sounds clear to auscultation right lower chest wall tenderness without crepitation or subcutaneous emphysema Abdomen: Bowel sounds normal, soft, no tenderness, no masses, no pulsatile masses. [] Skin: Warm, dry, no erythema, no rash. [] Back: No tenderness, no CVA tenderness. [] Extremities: No tenderness, no cyanosis, no clubbing, ROM intact, no edema. [] Neurologic: Alert and oriented X 3, no focal deficits noted. [] Psychologic: Affect normal, judgement normal, mood normal. [] Current Patient Data Vital Signs Vital Signs Date Time Temp Pulse Resp B/P (MAP) Pulse Ox O2 Delivery O2 Flow Rate FiO2 01/27/19 14:05 97.9 60 18 125/58 (80) 99 Room Air 97.9 EKG EKG [] Radiology/Procedures Radiology/Procedures [][facility] [address] [place] [address] IMAGING REPORT Signed PATIENT: BASHIR ARROYO ACCOUNT: [id number] : 1935 LOCATION: [address] [place] [address] AGE: 83 SEX: M EXAM STATUS: ADM IN ORD. PHYSICIAN: YUKI RUIZ MD REASON: fall and injury PROCEDURE: RIBS RIGHT AND PA CHEST Examination: RIBS RIGHT AND PA CHEST History: Fall and injury Comparison/Correlation: 01/17/2019 portable chest x-ray exam Findings: AP upright frontal view chest was obtained. 3 images of the right ribs in addition also provided. Heart size is borderline. No pleural effusion or pneumothorax. No infiltrate. Osteopenia noted. No acute right rib fracture. Old right sixth rib fracture anteriorly is suggested. Biapical pleural thickening is present. Inferior vena cava filter is partially seen. Impression: No infiltrate. Osteopenia. No acute right rib fracture. Electronically signed by: Eduardo Hanson MD (01/27/2019 3:55 PM) [facility] DICTATED and SIGNED BY: EDUARDO HANSON MD DATE: 01/27/19 1653 Course & Med Decision Making Course & Med Decision Making Pertinent Labs and Imaging studies reviewed. (See chart for details) Evaluation of patient in ER showed 83-year-old male patient with frequent hospitalization because of weakness on 4 brought in by EMS because of another fall 2 days ago after he was discharged from hospital at the same day and complaining of right lower chest wall pain. Patient had unremarkable ribs and chest x-ray.Patient requiring admission for further evaluation and treatment. Discussed with Dr. Lopez who is in agreement with admission. Discussed findings and plan with patient and family, who acknowledge understanding and agreement. Dragon Disclaimer Dragon Disclaimer This electronic medical record was generated, in whole or in part, using a voice recognition dictation system. Departure Departure Impression: Primary Impression: Generalized weakness Additional Impressions: Frequent falls Soft tissue injury of right chest wall Chronic renal insufficiency Chronic anemia Hypoalbuminemia Disposition: ADMITTED INPATIENT (at 1448) Admitting Physician: Marcellus Lopez (accepted admission at 1447) Condition: IMPROVED Referrals: MARCELLUS LOPEZ MD (PCP) Problem Qualifiers Additional Impressions: Chronic renal insufficiency Chronic kidney disease stage: unspecified stage Qualified Codes: N18.9 - Chronic kidney disease, unspecified YUKI RUIZ MD Jan 27, 2019 16:14
[2019-01-27] MEDS ORDERED: fentaNYL PF VIAL 100 MCG/2 ML VIAL IV PRN (16:15)
[2019-01-27 17:30] VITALS: BP 142/63
[2019-01-27 19:00] VITALS: BP 120/61
[2019-01-27] MEDS ORDERED: ACETAMINOPHEN 325 MG TABLET. PO PRN (19:30)
[2019-01-27] MEDS ORDERED: NITROGLYCERIN SUBLINGUAL 0.4 MG BOTTLE OF 25. SL PRN (19:30)
[2019-01-27] MEDS: HYDROcodone/APAP 7.5/325MG 1 TAB TABLET PO PRN (19:46)
[2019-01-27] MEDS: ALBUTEROL SULFATE 2.5 MG/3 ML NEBU. NEB SCH (20:00)
[2019-01-27] MEDS ORDERED: NON FORMULARY ITEM (Albuterol Sulfate (Albuterol Sulfate Conc Neb Soln) 2.5 MG) IH SCH (21:00)
[2019-01-27] MEDS: GABAPENTIN 100 MG CAPSULE. PO SCH (21:00)
[2019-01-27] MEDS: DICLOFENAC SODIUM 1% TOPICAL GEL 100GM TUBE. TP SCH (21:14)
[2019-01-27] MEDS: hydrALAZINE 25 MG TABLET PO SCH (21:15)
[2019-01-27] MEDS: MIRTAZAPINE 7.5 MG TABLET. PO SCH (21:15)
[2019-01-27] MEDS: CETIRIZINE HCL 10 MG TABLET. PO SCH (21:15)
[2019-01-27] MEDS: CARVEDILOL 3.125 MG TABLET. PO SCH (21:15)
[2019-01-27] MEDS: MONTELUKAST SODIUM 10 MG TABLET. PO SCH (21:15)
[2019-01-27] MEDS: SIMVASTATIN 20 MG TABLET PO SCH (21:16)
[2019-01-27 23:00] VITALS: BP 111/52
[2019-01-28 03:00] VITALS: BP 120/52
[2019-01-28 05:32] LABS: HEMATOCRIT 24.6 % (39.0-53.0); RED BLOOD COUNT 2.89 x10^6/uL (4.30-5.70); RED CELL DISTRIBUTION WIDTH 16.1 % (11.5-14.5); WHITE BLOOD COUNT 6.6 x10^3/uL (4.0-11.0)
[2019-01-28 06:00] LABS: ALBUMIN 2.9 g/dL (3.4-5.0); CALCIUM 8.6 mg/dL (8.5-10.1); CREATININE 1.9 mg/dL (0.7-1.3); GFR 33.9; POTASSIUM 4.5 mmol/L (3.5-5.1); TOTAL BILIRUBIN 0.2 mg/dL (0.2-1.0); TOTAL PROTEIN 5.9 g/dL (6.4-8.2)
[2019-01-28] MEDS: HYDROcodone/APAP 7.5/325MG 1 TAB TABLET PO PRN ×3 (06:16→21:37)
[2019-01-28 07:00] VITALS: BP 137/62
[2019-01-28] MEDS: ALBUTEROL SULFATE 2.5 MG/3 ML NEBU. NEB SCH ×4 (07:15→19:44)
[2019-01-28] MEDS: BUDESONIDE 0.5 MG/2 ML NEBU. NEB SCH ×2 (07:15→19:44)
[2019-01-28] MEDS ORDERED: PANTOPRAZOLE 40 MG TABLET.DR. PO SCH (07:30)
[2019-01-28] MEDS ORDERED: NON FORMULARY ITEM (Fluticasone Propionate (Flonase Allergy Relief) 2 SPRAYS) NS SCH (09:00)
[2019-01-28] MEDS ORDERED: C.DIFF MED SCREEN BY RX. MC ONE (09:00)
[2019-01-28] MEDS: GABAPENTIN 100 MG CAPSULE. PO SCH ×2 (09:00→10:07)
[2019-01-28] MEDS: DICLOFENAC SODIUM 1% TOPICAL GEL 100GM TUBE. TP SCH ×2 (09:01→21:29)
[2019-01-28] MEDS: MULTIVITAMIN with MINERAL TABLET. PO SCH (09:01)
[2019-01-28] MEDS: FLUTICASONE 50MCG/NASAL SPRAY 16GM BOTTLE. NS SCH (09:01)
[2019-01-28] MEDS: ASPIRIN ENTERIC COATED 81 MG TABLET.DR. PO SCH (09:02)
[2019-01-28] MEDS: CALCIUM CARB/VIT D3 500/200 TABLET. PO SCH (09:02)
[2019-01-28] MEDS: ASCORBIC ACID 500 MG TABLET PO SCH (09:02)
[2019-01-28] MEDS: predniSONE 20 MG TABLET PO SCH (09:02)
[2019-01-28] MEDS: CYANOCOBALAMIN (VITAMIN B-12) 1,000 MCG TABLET. PO SCH (09:03)
[2019-01-28] MEDS: hydrALAZINE 25 MG TABLET PO SCH ×2 (09:03→21:28)
[2019-01-28] MEDS: CARVEDILOL 3.125 MG TABLET. PO SCH ×2 (09:03→17:16)
--- NOTE | 2019-01-28 10:37 | PDOC ---
Provider Note Provider Note History and physical and discharge summary dictated #[id number] MARCELLUS FIERRO MD Jan 28, 2019 10:37
[2019-01-28] MEDS ORDERED: HYDR-2765 PO (10:45)
[2019-01-28] MEDS ORDERED: MUPI15CR8 TP (10:45)
[2019-01-28] MEDS ORDERED: PRED20TA PO (10:45)
[2019-01-28] MEDS ORDERED: POLY17PO28 PO (10:45)
--- NOTE | 2019-01-28 10:50 | SNU/HH DC ---
DISCHARGE ORDERS DISCHARGE INFORMATION: FINAL DIAGNOSIS Problems Medical Problems: (1) Chronic anemia Status: Acute (2) Chronic renal insufficiency Status: Acute (3) Frequent falls Status: Acute (4) Hypoalbuminemia Status: Acute (5) Soft tissue injury of right chest wall Status: Acute CONDITION ON DISCHARGE: Stable GROUP HOME: SNF STAY <30 DAYS: Yes POST DISCHARGE ORDERS: ACTIVITY ORDERS: No restrictions WEIGHT BEARING STATUS: As tolerated (with walker and PT) DIET AFTER DISCHARGE: Cardiac (ADA) WOUND/INCISION CARE: No wound care needed CHECKS AFTER DISCHARGE: CHECKS AFTER DISCHARGE: Check blood sugar, ac/hs FOLLOW-UP: PHYSICIAN FOLLOW-UP: By Dr.Pratip Fierro LAB ORDERS FOR FOLLOW-UP: CBC,CMP in AM and on Friday and TREATMENT/EQUIPMENT ORDERS: ADAPTIVE EQUIPMENT NEEDED: Walker RESPIRATORY EQUIPMENT NEEDED: Nebulizer Physical Therapy For: Evalulation/Treatment Occupational Therapy For: Evaluation/Treatment Speech Language Pathology For: Evaluation/Treatment DISCHARGE MEDICATIONS: Home Meds Active Scripts Mupirocin Calcium (MUPIROCIN CREAM) 15 Gm Cream..g., 1 SONAM TP TID for skin cuts for 7 Days, #1 EACH Prov:MARCELLUS FIERRO MD 01/28/19 Prednisone (PREDNISONE) 20 Mg Tablet, 20 MG PO DAILY for copd for 7 Days, #7 TAB Prov:MARCELLUS FIERRO MD 01/28/19 Polyethylene Glycol 3350 (POLYETHYLENE GLYCOL 3350) 17 Gm Powd.pack, 17 GM PO DAILY for constipation for 30 Days, #30 PKT Prov:MARCELLUS FIERRO MD 01/28/19 Hydrocodone Bit/Acetaminophen (HYDROCODONE-APAP 7.5-325 ) 1 Tab Tablet, 1 TAB PO PRN Q6HRS PRN for MODERATE - SEVERE PAIN for 7 Days, #28 TAB Prov:MARCELLUS FIERRO MD 01/28/19 Albuterol Sulfate (Proair Hfa) 8.5 Gm Hfa.aer.ad, 2.5 MG NEB RTQID for COPD, #1 INHALER Prov:MARCELLUS FIERRO MD 01/21/19 Acetaminophen (TYLENOL) 325 Mg Tablet, 650 MG PO PRN Q6HRS PRN for MILD PAIN for 30 Days, #120 TAB Prov:MARCELLUS FIERRO MD 05/11/18 Diclofenac Sodium (VOLTAREN) 100 Gm Gel..gram., 1 SONAM TP BID for arthritis for 30 Days, #100 GM 1 Refill Prov:MARCELLUS FIERRO MD 05/11/18 Cyanocobalamin (Vitamin B-12) (VITAMIN B-12) 1,000 Mcg Tablet, 1000 MCG PO DAILY, #30 TAB Prov:MARCELLUS FIERRO MD 03/24/14 Reported Medications Fluticasone Propionate (FLUTICASONE PROPIONATE NASAL SPRAY) 16 Gm [place].susp, 2 SPRAY NS DAILY for ALLERGIES, #1 INHALER 11 Refills 01/17/19 Aspirin (ASPIR-LOW) 81 Mg Tablet.dr, 1 TAB PO DAILY for CIRCULATION, #30 TAB 3 Refills 01/17/19 Doxazosin Mesylate (DOXAZOSIN MESYLATE) 8 Mg Tablet, 1 TAB PO HS for PROSTATE, #30 TAB 5 Refills 01/17/19 Omeprazole (OMEPRAZOLE) 40 Mg Capsule.dr, 1 CAP PO DAILY for GERD, #30 CAP 3 Refills 01/17/19 Ascorbic Acid (C-1000) 1,000 Mg Tablet.er, 1000 MG PO DAILY for SUPPLEMENT, TAB.SR 09/09/18 Loratadine (CLARITIN) 10 Mg Tablet, 10 MG PO DAILY for ALLERGY, TAB 09/09/18 Nitroglycerin (NITROSTAT) 0.4 Mg Tab.subl, 0.4 MG SL PRN Q5MIN PRN for CHEST PAIN, BOTTLE 09/09/18 Calcium Carbonate/Vitamin D3 (Calcium 500-Vit D3 600 Tablet) 1 Each Tablet, 1 EACH PO DAILY for SUPPLEMENT, TAB 09/09/18 Montelukast Sodium (SINGULAIR TABLET ) 10 Mg Tablet, 10 MG PO HS for FOR AST HMA, #30 TAB 0 Refills 03/20/14 Multivits-Min/Fa/Lycopene/Lut (CENTRUM SILVER TABLET) 1 Each Tablet, 1 EACH PO DAILY 03/20/14 Carvedilol (CARVEDILOL ) 3.125 Mg Tablet, 1 TAB PO BID, #60 TAB 5 Refills 03/20/14 Hydralazine Hcl (HYDRALAZINE HCL) 25 Mg Tablet, 1 TAB PO BID, #60 TAB 5 Refills 03/20/14 Mirtazapine (MIRTAZAPINE) 7.5 Mg Tablet, 7.5 MG PO HS 08/03/13 Simvastatin (SIMVASTATIN) 20 Mg Tablet, 20 MG PO HS 08/03/13 Budesonide/Formoterol Fumarate (SYMBICORT 160-4.5 MCG INHALER) 10.2 Gm Hfa.aer.ad, 2 INHALER IH BID 08/03/13 Albuterol Sulfate (ALBUTEROL SULFATE CONC NEB SOLN) 2.5 Mg/0.5 Ml Vial.neb, 2.5 MG IH [id number] 08/03/13 Discontinued Reported Medications Fluticasone Propionate (Flonase Allergy Relief) 9.9 Ml [place].susp, 2 SPRAYS NS DAILY for ALLERGY PREVENTION, BOTTLE 09/09/18 Discontinued Scripts Cefdinir (CEFDINIR) 300 Mg Capsule, 1 CAP PO BID for bronchitis, #8 CAP Prov:MARCELLUS FIERRO MD 01/25/19 Prednisone (PREDNISONE ) 10 Mg Tablet, 10 MG PO UD for COPD for 9 Days, #18 TAB 0 Refills Take 3 tablets by mouth daily for 3 days, then take 2 tablets by mouth daily for 3 days, then take 1 tablets by mouth daily for 3 days. Prov:MARCELLUS FIERRO MD 01/21/19 Gabapentin (GABAPENTIN ) 100 Mg Capsule, 100 MG PO TID for tremors, #90 CAP 1 Refill Prov:MARCELLUS FIERRO MD 01/21/19 MARCELLUS FIERRO MD Jan 28, 2019 10:50
[2019-01-28 11:00] VITALS: BP 132/51
--- NOTE | 2019-01-28 11:12 | HP ---
ADMIT DATE: 01/27/2019 COMBINED HISTORY AND PHYSICAL AND DISCHARGE SUMMARY HISTORY OF PRESENT ILLNESS: This 83-year-old male was recently admitted to this hospital on 01/17/2019 and was discharged on 01/25/2019. The patient initially came to the Emergency Room prior to 01/17 and had 2 blood cultures done that were positive and because of that, the patient was admitted for Staph bacteremia. However, Staph hominis was noted on both blood cultures, which is contaminant and IV antibiotics were discontinued, but the patient could not be discharged because he then had exacerbation of COPD and finally the patient was discharged home on 01/25/2019. The patient also had social issues with bed bugs and other problems at home. The patient walked 500 feet with physical therapy on the day before discharge. He did well. He had tremors and was started on gabapentin 100 mg 3 times a day by Dr. Llanos, who had seen him for Neurology evaluation and management. The patient was discharged home with home health services and PT, OT, but only yesterday morning, I got a message from the home health staff that the patient has declined PT, OT at home. Apparently, the patient fell at home. I am not sure whether it happened yesterday or the day before. The patient is not a good historian. He blames the fall on the gabapentin because he states that it made him dizzy, but he has not had any problems while he was in the hospital. He denies any head trauma. He hurt the posterior part of the right chest. He stated that he had a big bruise, but I do not see any bruise in that area. He complains of pain when he takes a deep breath. X-rays of the chest and ribs have been negative for any fractures on the right side. The patient is admitted because of the fall and chest pain. REVIEW OF SYSTEMS: At present time, the patient complains of pain in the area of the fall in the right posterior chest. Denies any fever or chills. His cough is much better. His dyspnea is much better with steroids. He has some joint pains. He denies any nausea, vomiting, abdominal pain, dyspnea, or dizziness at this time. He is a poor historian. He has chronic anxiety. Other systems reviewed and are negative. PAST MEDICAL HISTORY: The patient has history of chronic obstructive pulmonary disease with recurrent exacerbation, anxiety, and bronchitis and history of multiple admissions. He also has hypertension with chronic kidney disease stage 3, benign prostatic hypertrophy, creatinine ranges from 1.6-2. He had a coronary artery stent placed in 2011, history of C. diff colitis in 2012, history of old myocardial infarction, DVT in 2011, small bowel obstruction in 2011, CAD with 2 stents placed at in 2011, carotid artery disease, GERD, hemorrhoids, hypertension, lumbar spinal stenosis of L4-L5, macular degeneration of left eye dry, osteoarthritis of multiple sites, and Staph bacteremia that was a contaminant during the previous admission, PAST SURGICAL HISTORY: He had 2 stents placed in coronary artery in 2012, L5-S1 decompression with microdiskectomy and right L4-L5 decompression, partial colectomy, appendectomy, tonsillectomy, and hemorrhoidectomy. ALLERGIES: THE PATIENT IS ALLERGIC TO CLARITHROMYCIN THAT CAUSES RASH, CLOPIDOGREL CAUSES RASH, CODEINE, CYCLOBENZAPRINE CAUSES ITCHING. LISINOPRIL AND PRASUGREL CAUSE NAUSEA, [id number]. SULFA, ANTIBIOTICS TIZANIDINE, ITCHING, [id number]. FAMILY HISTORY: Father had coronary artery disease. Mother had coronary artery disease. SOCIAL HISTORY: The patient is an ex-cigarette smoker. No history of alcoholism or drug abuse. MEDICATIONS: Reviewed and reconciled. The patient is on prednisone. I will stop the cefdinir. I have also discontinued the gabapentin. OBJECTIVE: VITAL SIGNS: Stable. On admission, temperature 97.8, pulse 66 per minute, respirations 16 per minute, and blood pressure 142/63 mmHg. GENERAL: The patient is an elderly male who is alert, oriented, but forgetful, anxious, and has some cognitive deficits. He has tremors. He is not in any acute distress. EYES: Pupils reactive to light. Conjunctivae pale. Sclerae muddy. HEENT: The patient is wearing hearing aids. Throat is clear. NECK: Supple. JVP normal. No thyromegaly. Trachea midline. LUNGS: Decreased breath sounds at bases. No wheezing. No rales. CHEST: The patient has mild tenderness in the chest on the right side posteriorly. No swelling or bruising noted. CARDIOVASCULAR: S1, S2 regular. ABDOMEN: Soft, nontender, no guarding, no rigidity. Bowel sounds present. EXTREMITIES: No edema. CENTRAL NERVOUS SYSTEM: Alert and oriented. He has tremors, he has anxiety and is forgetful, but mostly appropriate, but has mild cognitive deficits. LABORATORY FINDINGS: WBC count 7.2, hemoglobin 8.5 yesterday, and hemoglobin is 8 today, sodium 143, and potassium 4.5. Yesterday, sodium was 146, potassium was 4.9. BUN was 36, creatinine 2.1, yesterday. BUN 36 today and creatinine 1.9 today. Albumin is 2.9 today, yesterday was 3.2. Urinalysis is negative. Chest x-ray did not show any acute changes along with x-rays of the ribs. DIAGNOSES: 1. Chest pain, musculoskeletal secondary to fall. 2. Generalized weakness. 3. Tremors. 4. History of L3 compression fracture, not symptomatic. 5. Chronic obstructive pulmonary disease exacerbation, improving. 6. Dizziness. 7. Chronic kidney disease stage 3. 8. Coronary artery disease. 9. Hypertension. 10. History of diabetes mellitus type 2. 11. Anxiety. PLAN: We will consult Dr. Bass for reevaluation and management. Order PT, OT. Discontinue gabapentin, although I do not believe that it had any bearing on his fall. Continue breathing treatment. Continue prednisone 20 mg daily. Stop the antibiotics. Discussed with the staff. Because of his home situation and his weakness and fall and cognitive deficits, I would prefer to send him to fpc unit. The patient is agreeable. If the patient is stable, we will discharge him today to [facility] unit, [facility]. We will order PT, OT. For details, please refer to the orders. For transfer orders and discharge management orders, please refer to the transfer papers. MARCELLUS FIERRO MD DR: TEMITOPE/lory JOB#: [id number] / [id number]
[2019-01-28] MEDS: POLYETHYLENE GLYCOL 3350 17 GM PACKET. PO SCH (12:03)
[2019-01-28] MEDS: SENNOSIDES/DOCUSATE 8.6/50MG TABLET. PO SCH (12:03)
--- NOTE | 2019-01-28 13:03 | NUR ---
Pharmacy Medication Review S: Consulted for medication review re: C.diff Risk Assessment score of 7 O: BASHIR ARROYO is a 83 year old with: Previous C.diff infection: >1yr ago Previous hospitalization: Within 30 days Recent antibiotics: Within 30 days Use of gastric acid suppressor: Yes Transfer from OR/LTAC: No Current antibiotic regimen: none Current acid suppression regimen: Protonix 40mg PO daily A: Patient has been identified as having risk factors for C.diff infection as noted above. P: Antibiotic Regimen recommendation made: N/A Probiotic ordered: N/A PPI changed to [id number]: yes Leighann Nichole RPH, 01/28/19 [id number]
[2019-01-28 15:00] VITALS: BP 135/60
--- NOTE | 2019-01-28 16:35 | NUR ---
KRISHAN consulted for SNU eval at [facility]. KRISHAN phoned and faxed referral at [facility]. Pt does not meet SNU criteria at this time. Pt does not have PT/OT needs and no correction needs indicated at this time. Pt is able to dc home with home health services and might possibly benefit from AL placement. Discussed with RN.
[2019-01-28] MEDS: BISACODYL 5 MG TABLET.DR. PO SCH (17:16)
[2019-01-28] MEDS: MUPIROCIN 2 % TOPICAL CREAM 30GM TUBE. TP SCH ×2 (17:17→21:29)
[2019-01-28 19:00] VITALS: BP 147/68
[2019-01-28] MEDS: CETIRIZINE HCL 10 MG TABLET. PO SCH (21:27)
[2019-01-28] MEDS: SIMVASTATIN 20 MG TABLET PO SCH (21:27)
[2019-01-28] MEDS: MIRTAZAPINE 7.5 MG TABLET. PO SCH (21:27)
[2019-01-28] MEDS: MONTELUKAST SODIUM 10 MG TABLET. PO SCH (21:27)
[2019-01-28 23:12] VITALS: BP 129/52
[2019-01-29 03:00] VITALS: BP 134/61
[2019-01-29 05:28] LABS: BASO % 0 % (0-3); EOS # 0.1 x10^3/uL (0.0-0.7); EOS % 2 % (0-3); HEMATOCRIT 23.2 % (39.0-53.0); HEMOGLOBIN 7.8 g/dL (13.0-17.5); LYMPH # 1.4 x10^3/uL (1.0-4.8); LYMPH % 24 % (24-48); MEAN CORPUSCULAR HEMOGLOBIN 28 pg (25-35); MEAN CORPUSCULAR HGB CONC 34 g/dL (31-37); MEAN CORPUSCULAR VOLUME 84 fL (79-100); MONO # 0.5 x10^3/uL (0.0-1.1); MONO % 9 % (0-9); NEUT # 3.7 x10^3/uL (1.8-7.7); NEUT % 65 % (31-73); PLATELET COUNT 258 x10^3/uL (140-400); RED BLOOD COUNT 2.75 x10^6/uL (4.30-5.70); RED CELL DISTRIBUTION WIDTH 16.1 % (11.5-14.5); WHITE BLOOD COUNT 5.7 x10^3/uL (4.0-11.0)
[2019-01-29 05:40] LABS: CALCIUM 8.7 mg/dL (8.5-10.1); CREATININE 1.9 mg/dL (0.7-1.3); GFR 33.9; POTASSIUM 4.5 mmol/L (3.5-5.1)
--- NOTE | 2019-01-29 06:21 | CONS ---
DATE OF CONSULTATION: 01/28/2019 ATTENDING PHYSICIAN: Lucía Lopez MD REASON FOR CONSULTATION: The patient was seen at the request of Dr. Lopez for rehab evaluation. HISTORY OF PRESENT ILLNESS: This is an 83-year-old male known to me. He was discharged from this medical center on 01/25/2019 after admitted for positive blood cultures. He was treated for that and also for cough. The patient apparently had a fall on 01/26/2019. The patient blames gabapentin on it. The patient had x-rays which failed to reveal any acute abnormalities. He had x-rays of his ribs and chest x-ray, which revealed osteopenia. The patient denies any significant pain. The patient denies any radiation of pain to the extremities. The patient had some problems with the tremors since yesterday and he has been started on gabapentin 100 mg 3 times a day by Dr. Llanos. The patient had chronic dizziness problems. The patient also with chronic obstructive pulmonary disease; anxiety; bronchitis; hypertension; chronic kidney disease stage 3; benign prostatic hypertrophy; coronary artery disease, status post stent placed in 2011; history of C. diff colitis in 2012; old myocardial infarction; deep venous thrombosis in 2011; small-bowel obstruction in 2011; carotid artery disease; gastroesophageal reflux disease; hemorrhoids; hypertension; lumbar spinal stenosis at L4-L5; macular degeneration, left eye; osteoarthritis. The patient had lumbar spine surgery done in the past. He also had partial colectomy, appendectomy, tonsillectomy, hemorrhoidectomy. ALLERGIES: KNOWN ALLERGIC TO CLARITHROMYCIN, PLAVIX, CODEINE, CYCLOBENZAPRINE, LISINOPRIL, PRASUGREL, SULFA, TIZANIDINE. FAMILY HISTORY: Coronary artery disease with his father and mother. He lives alone, had no steps to manage. He is an ex-cigarette smoker. PHYSICAL EXAMINATION: On physical examination today revealed an elderly male. He is alert, oriented to time, place, person, and circumstance, follows commands appropriately, moves all 4 extremities voluntarily where he had 4+/5 grade muscle strength. Deep tendon reflexes are 1-2+ and symmetrical with absent ankle jerks. He had some tenderness to palpation over right upper part of the buttock where there is just small bruised area and over right sacroiliac joint area. Straight leg raising test is negative bilaterally. He had painful range of motion of both hip joints. He had tenderness to palpation also over left leg distal part where he had some edema and redness, less edema and swelling of his right leg and foot. He had absent ankle jerks. He had equal perception of touch and pinprick sensation bilaterally. He had no significant pain on range of motion of cervical, thoracic or lumbar spine. He is independent with the bed mobility, transfers, and up walking using a roller walker and without a roller walker with somewhat wide-based gait. ASSESSMENT: Elderly male with coronary artery disease, carotid artery disease, status post lumbar decompression laminectomy for lumbar spinal stenosis, gastroesophageal reflux disease, status post stent placement, benign prostatic hypertrophy, hypertension, chronic kidney disease. Also, clinical evidence of peripheral neuropathy and chronic venous insufficiency of both feet and legs, left side more than right side and recent fall and some bruise over right lower back and buttock area. RECOMMENDATIONS: To try some ice pack to the bruised area to try Rooke boot to help ease some of the redness and swelling of his left leg. Home with home health followup or senior care facility if he qualifies. Dr. Lopez, I appreciate your asking me to participate in the care of this interesting patient. I will be glad to see him with you on an as-needed basis for his rehabilitation. ARI PORTILLO MD DR: RHETT/lory JOB#: [id number] / [id number]
[2019-01-29 07:00] VITALS: BP 158/82
[2019-01-29] MEDS: ALBUTEROL SULFATE 2.5 MG/3 ML NEBU. NEB SCH ×2 (08:00→11:32)
[2019-01-29] MEDS: BUDESONIDE 0.5 MG/2 ML NEBU. NEB SCH (08:00)
[2019-01-29] MEDS: HYDROcodone/APAP 7.5/325MG 1 TAB TABLET PO PRN (08:43)
[2019-01-29] MEDS: ASCORBIC ACID 500 MG TABLET PO SCH (08:44)
[2019-01-29] MEDS: hydrALAZINE 25 MG TABLET PO SCH (08:44)
[2019-01-29] MEDS: CALCIUM CARB/VIT D3 500/200 TABLET. PO SCH (08:44)
[2019-01-29] MEDS: MULTIVITAMIN with MINERAL TABLET. PO SCH (08:44)
[2019-01-29] MEDS: predniSONE 20 MG TABLET PO SCH (08:44)
[2019-01-29] MEDS: CYANOCOBALAMIN (VITAMIN B-12) 1,000 MCG TABLET. PO SCH (08:44)
[2019-01-29] MEDS: BISACODYL 5 MG TABLET.DR. PO SCH (08:44)
[2019-01-29] MEDS: POLYETHYLENE GLYCOL 3350 17 GM PACKET. PO SCH (08:45)
[2019-01-29] MEDS: ASPIRIN ENTERIC COATED 81 MG TABLET.DR. PO SCH (08:45)
[2019-01-29] MEDS: FLUTICASONE 50MCG/NASAL SPRAY 16GM BOTTLE. NS SCH (08:45)
[2019-01-29] MEDS: CARVEDILOL 3.125 MG TABLET. PO SCH (08:45)
[2019-01-29] MEDS: DICLOFENAC SODIUM 1% TOPICAL GEL 100GM TUBE. TP SCH (08:46)
[2019-01-29] MEDS: MUPIROCIN 2 % TOPICAL CREAM 30GM TUBE. TP SCH ×2 (08:46→14:00)
[2019-01-29] MEDS ORDERED: FAMOTIDINE 20 MG TABLET. PO SCH (09:00)
--- NOTE | 2019-01-29 09:38 | SNU/HH DC ---
DISCHARGE WITH HOME HEALTH DISCHARGE INFORMATION: Final Diagnosis: Problems Medical Problems: (1) Chronic anemia Status: Acute (2) Chronic renal insufficiency Status: Acute (3) Frequent falls Status: Acute (4) Hypoalbuminemia Status: Acute (5) Soft tissue injury of right chest wall Status: Acute Condition on Discharge: Stable HOME HEALTH: Face to Face: I certify this patient is under my care and that I, or a nurse practitioner or physician's education assistant working with me, had a face to face encounter that meets the physician face to face encounter requirements with this patient on 01/29/19. Medical Complications: COPD RN For Eval/Treatment: Yes Physical Therapy For: Evalulation/Treatment Occupational Therapy For: Evaluation/Treatment Pt Meets Homebound Status: Frequent falls w/ injury POST DISCHARGE ORDERS: Activity Instructions for Disc: Activity as tolerated (walk with walker) Weight Bearing Status after Di: As tolerated (with walker and PT) DIET AFTER DISCHARGE: Cardiac (ADA) Wound/Incision Care: No wound care needed CHECKS AFTER DISCHARGE: Checks after discharge: Check blood sugar, ac/hs FOLLOW-UP: PCP to follow Home Health: Yes Follow up with: By Dr.Pratip Fierro in 4 days on Friday TREATMENT/EQUIPMENT ORDERS: Adaptive Equipment Issued: Walker Discharge Respiratory Equipmen: Nebulizer CERTIFICATION STATEMENT: Certification Statement: Certification Statement: Based on the above finding, I certify that this patient is confined to the home and needs intermittent jail care, physical therapy and/or speech therapy, or continues to need occupational therapy.~ This patient is under my care, and I have initiated the establishment of the plan of care.~ This patient will be followed by myself or a community physician who will periodically review the plan of care. Home Meds Active Scripts Mupirocin Calcium (MUPIROCIN CREAM) 15 Gm Cream..g., 1 SONAM TP TID for skin cuts for 7 Days, #1 EACH Prov:MARCELLUS FIERRO MD 01/28/19 Prednisone (PREDNISONE) 20 Mg Tablet, 20 MG PO DAILY for copd for 7 Days, #7 TAB Prov:MARCELLUS FIERRO MD 01/28/19 Polyethylene Glycol 3350 (POLYETHYLENE GLYCOL 3350) 17 Gm Powd.pack, 17 GM PO DAILY for constipation for 30 Days, #30 PKT Prov:MARCELLUS FIERRO MD 01/28/19 Hydrocodone Bit/Acetaminophen (HYDROCODONE-APAP 7.5-325 ) 1 Tab Tablet, 1 TAB PO PRN Q6HRS PRN for MODERATE - SEVERE PAIN for 7 Days, #28 TAB Prov:MARCELLUS FIERRO MD 01/28/19 Albuterol Sulfate (Proair Hfa) 8.5 Gm Hfa.aer.ad, 2.5 MG NEB RTQID for COPD, #1 INHALER Prov:MARCELLUS FIERRO MD 01/21/19 Acetaminophen (TYLENOL) 325 Mg Tablet, 650 MG PO PRN Q6HRS PRN for MILD PAIN for 30 Days, #120 TAB Prov:MARCELLUS FIERRO MD 05/11/18 Diclofenac Sodium (VOLTAREN) 100 Gm Gel..gram., 1 SONAM TP BID for arthritis for 30 Days, #100 GM 1 Refill Prov:MARCELLUS FIERRO MD 05/11/18 Cyanocobalamin (Vitamin B-12) (VITAMIN B-12) 1,000 Mcg Tablet, 1000 MCG PO DAILY, #30 TAB Prov:MARCELLUS FIERRO MD 03/24/14 Reported Medications Fluticasone Propionate (FLUTICASONE PROPIONATE NASAL SPRAY) 16 Gm [place].susp, 2 SPRAY NS DAILY for ALLERGIES, #1 INHALER 11 Refills 01/17/19 Aspirin (ASPIR-LOW) 81 Mg Tablet.dr, 1 TAB PO DAILY for CIRCULATION, #30 TAB 3 Refills 01/17/19 Doxazosin Mesylate (DOXAZOSIN MESYLATE) 8 Mg Tablet, 1 TAB PO HS for PROSTATE, #30 TAB 5 Refills 01/17/19 Omeprazole (OMEPRAZOLE) 40 Mg Capsule.dr, 1 CAP PO DAILY for GERD, #30 CAP 3 Refills 01/17/19 Ascorbic Acid (C-1000) 1,000 Mg Tablet.er, 1000 MG PO DAILY for SUPPLEMENT, TAB.SR 09/09/18 Loratadine (CLARITIN) 10 Mg Tablet, 10 MG PO DAILY for ALLERGY, TAB 09/09/18 Nitroglycerin (NITROSTAT) 0.4 Mg Tab.subl, 0.4 MG SL PRN Q5MIN PRN for CHEST PAIN, BOTTLE 09/09/18 Calcium Carbonate/Vitamin D3 (Calcium 500-Vit D3 600 Tablet) 1 Each Tablet, 1 EACH PO DAILY for SUPPLEMENT, TAB 09/09/18 Montelukast Sodium (SINGULAIR TABLET ) 10 Mg Tablet, 10 MG PO HS for FOR ASTHMA, #30 TAB 0 Refills 03/20/14 Multivits-Min/Fa/Lycopene/Lut (CENTRUM SILVER TABLET) 1 Each Tablet, 1 EACH PO DAILY 03/20/14 Carvedilol (CARVEDILOL ) 3.125 Mg Tablet, 1 TAB PO BID, #60 TAB 5 Refills 03/20/14 Hydralazine Hcl (HYDRALAZINE HCL) 25 Mg Tablet, 1 TAB PO BID, #60 TAB 5 Refills 03/20/14 Mirtazapine (MIRTAZAPINE) 7.5 Mg Tablet, 7.5 MG PO HS 08/03/13 Simvastatin (SIMVASTATIN) 20 Mg Tablet, 20 MG PO HS 08/03/13 Budesonide/Formoterol Fumarate (SYMBICORT 160-4.5 MCG INHALER) 10.2 Gm Hfa.aer.ad, 2 INHALER IH BID 08/03/13 Albuterol Sulfate (ALBUTEROL SULFATE CONC NEB SOLN) 2.5 Mg/0.5 Ml Vial.neb, 2.5 MG IH [id number] 08/03/13 Discontinued Reported Medications Fluticasone Propionate (Flonase Allergy Relief) 9.9 Ml [place].susp, 2 SPRAYS NS DAILY for ALLERGY PREVENTION, BOTTLE 09/09/18 Discontinued Scripts Cefdinir (CEFDINIR) 300 Mg Capsule, 1 CAP PO BID for bronchitis, #8 CAP Prov:MARCELLUS FIERRO MD 01/25/19 Prednisone (PREDNISONE ) 10 Mg Tablet, 10 MG PO UD for COPD for 9 Days, #18 TAB 0 Refills Take 3 tablets by mouth daily for 3 days, then take 2 tablets by mouth daily for 3 days, then take 1 tablets by mouth daily for 3 days. Prov:MARCELLUS FIERRO MD 01/21/19 Gabapentin (GABAPENTIN ) 100 Mg Capsule, 100 MG PO TID for tremors, #90 CAP 1 Refill Prov:MARCELLUS FIERRO MD 01/21/19 MARCELLUS FIERRO MD Jan 29, 2019 09:38
--- NOTE | 2019-01-29 09:46 | PDOC3 ---
IM DISCHARGE SUMMARY Date of Admission Date of Admission Date of Admission: Jan 27, 2019 at 14:30 Date of Discharge Date of Discharge January 29, 2019 Primary Diagnosis Primary Diagnosis 1. Chest pain, musculoskeletal secondary to fall. 2. Generalized weakness. 3. Tremors. 4. History of L3 compression fracture, not symptomatic. 5. Chronic obstructive pulmonary disease exacerbation, improving. 6. Dizziness. 7. Chronic kidney disease stage 3. 8. Coronary artery disease. 9. Hypertension. 10. History of diabetes mellitus type 2. 11. Anxiety. 12. Anemia Consults Consults Philippe Bass MD Labs Labs Laboratory Tests Test 01/29/19 04:31 White Blood Count 5.7 x10^3/uL (4.0-11.0) Red Blood Count 2.75 x10^6/uL (4.30-5.70) L Hemoglobin 7.8 g/dL (13.0-17.5) L Hematocrit 23.2 % (39.0-53.0) L Mean Corpuscular Volume 84 fL (79-100) Mean Corpuscular Hemoglobin 28 pg (25-35) Mean Corpuscular Hemoglobin Concent 34 g/dL (31-37) Red Cell Distribution Width 16.1 % (11.5-14.5) H Platelet Count 258 x10^3/uL (140-400) Neutrophils (%) (Auto) 65 % (31-73) Lymphocytes (%) (Auto) 24 % (24-48) Monocytes (%) (Auto) 9 % (0-9) Eosinophils (%) (Auto) 2 % (0-3) Basophils (%) (Auto) 0 % (0-3) Neutrophils # (Auto) 3.7 x10^3/uL (1.8-7.7) Lymphocytes # (Auto) 1.4 x10^3/uL (1.0-4.8) Monocytes # (Auto) 0.5 x10^3/uL (0.0-1.1) Eosinophils # (Auto) 0.1 x10^3/uL (0.0-0.7) Basophils # (Auto) 0.0 x10^3/uL (0.0-0.2) Sodium Level 142 mmol/L (136-145) Potassium Level 4.5 mmol/L (3.5-5.1) Chloride Level 107 mmol/L (98-107) Carbon Dioxide Level 30 mmol/L (21-32) Anion Gap 5 (6-14) L Blood Urea Nitrogen 37 mg/dL (8-26) H Creatinine 1.9 mg/dL (0.7-1.3) H Estimated GFR (Cockcroft-Gault) 33.9 Glucose Level 97 mg/dL (70-99) Calcium Level 8.7 mg/dL (8.5-10.1) Laboratory Tests 01/29/19 04:31 Laboratory Tests 01/29/19 04:31 Brief hospital course Brief hospital course This 83-year-old male was recently admitted to this hospital on 01/17/2019 and was discharged on 01/25/2019. The patient initially came to the Emergency Room prior to 01/17 and had 2 blood cultures done that were positive and because of that, the patient was admitted for Staph bacteremia. However, Staph hominis was noted on both blood cultures, which is contaminant and IV antibiotics were discontinued, but the patient could not be discharged because he then had exacerbation of COPD and finally the patient was discharged home on 01/25/2019. The patient also had social issues with bed bugs and other problems at home. The patient walked 500 feet with physical therapy on the day before discharge. He did well. He had tremors and was started on gabapentin 100 mg 3 times a day by Dr. Llanos, who had seen him for Neurology evaluation and management. The patient was discharged home with home health services and PT, OT, but only yesterday morning, I got a message from the home health staff that the patient has declined PT, OT at home. Apparently, the patient fell at home. I am not sure whether it happened yesterday or the day before. The patient is not a good historian. He blames the fall on the gabapentin because he states that it made him dizzy, but he has not had any problems while he was in the hospital. He denies any head trauma. He hurt the posterior part of the right chest. He stated that he had a big bruise, but I do not see any bruise in that area. He complains of pain when he takes a deep breath. X-rays of the chest and ribs have been negative for any fractures on the right side. The patient is admitted because of the fall and chest pain. For more details regarding the past history, family history, social history, surgical history and other details, please refer to History and Physical. We will consult Dr. Bass for reevaluation and management. Order PT, OT. Discontinue gabapentin, although I do not believe that it had any bearing on his fall. Continue breathing treatment. Continue prednisone 20 mg daily. Stop the antibiotics. Discussed with the staff. Because of his home situation and his weakness and fall and cognitive deficits, Patient was seen by Dr. Bass for rehabilitation evaluation and management as well as physical therapist. Patient was able to walk without any problems and it was determined that he is not a candidate for [facility] unit. He is agreeable to go home with home health care and PT OT at home. Gabapentin was discontinued. Continue prednisone at home and will continue to taper it. Anemia- hemoglobin has dropped to 7.8. Anemia is multifactorial. We will continue to monitor that as outpatient. Patient does not have any clinical signs or symptoms of bleeding. He does not want to take iron supplements but is agreeable to take multivitamins daily. Chronic kidney disease- unchanged. He is doing better and will discharge him home but his long-term as well as short-term prognosis is very poor due to multiple medical problems and chances of readmission are high. We will monitor hemoglobin and lung function and other issues at home. Medications Current Medications Medications (Trade) Dose Ordered Sig/Juhi Route PRN Reason Start Time Stop Time Status Last Admin Dose Admin Senna/Docusate Sodium (Senna Plus) 2 tab DAILY10 PO 01/28/19 11:00 01/28/19 12:03 Polyethylene Glycol (miraLAX PACKET) 17 gm DAILY PO 01/28/19 11:00 01/29/19 08:45 Mupirocin (Bactroban) 1 naif TID TP 01/28/19 14:00 01/29/19 08:46 Bisacodyl (Dulcolax Tab) 10 mg DAILY PO 01/28/19 13:00 01/29/19 08:44 Famotidine (Pepcid) 20 mg DAILY PO 01/29/19 09:00 01/29/19 08:44 Medications reviewed and reconciled for discharge. Allergy Allergies Coded Allergies Type Severity Reaction Last Updated Verified Sulfa (Sulfonamide Antibiotics) Allergy Severe 01/22/19 Yes clopidogrel Allergy Intermediate 09/08/18 Yes valsartan Allergy Intermediate 09/08/18 Yes warfarin Allergy Intermediate 09/08/18 Yes Follow up In 4 days on Friday. DISPOSITION: Home health services Comments Discharge Management - 35 minutes. For other details please refer to discharge instructions MARCELLUS FIERRO MD Jan 29, 2019 09:46
--- NOTE | 2019-01-29 09:51 | PDOC ---
PROGRESS NOTES Subjective Subjective No new complaints. Objective Objective Vital Signs Date Time Temp Pulse Resp B/P (MAP) Pulse Ox O2 Delivery O2 Flow Rate FiO2 01/29/19 08:49 99 Room Air 01/29/19 08:45 61 158/82 01/29/19 08:43 18 01/29/19 07:00 98.8 98.8 Intake and Output 01/29/19 07:00 Intake Total 300 ml Balance 300 ml Intake Oral 300 ml # Voids 7 Physical Exam Physical Exam He is sitting up in bedside chair and comfortable and he likes to have vascular boot on to his left foot. Assessment Assessment Problems Medical Problems: (1) Chronic anemia Status: Acute (2) Chronic renal insufficiency Status: Acute (3) Frequent falls Status: Acute (4) Hypoalbuminemia Status: Acute (5) Soft tissue injury of right chest wall Status: Acute Plan Plan of Care Agree with plans for home with home health but he needs to consider assisted living facility if he keep on having falls. Comment Review of Relevant I have reviewed the following items tawnya (where applicable) has been applied. Labs Laboratory Tests Test 01/27/19 14:35 01/27/19 14:50 01/27/19 15:34 01/28/19 05:00 Prothrombin Time 13.1 SEC (11.7-14.0) Prothromb Time International Ratio 1.0 (0.8-1.1) Sodium Level 146 mmol/L (136-145) 143 mmol/L (136-145) Potassium Level 4.9 mmol/L (3.5-5.1) 4.5 mmol/L (3.5-5.1) Chloride Level 108 mmol/L (98-107) 107 mmol/L (98-107) Carbon Dioxide Level 31 mmol/L (21-32) 28 mmol/L (21-32) Anion Gap 7 (6-14) 8 (6-14) Blood Urea Nitrogen 36 mg/dL (8-26) 36 mg/dL (8-26) Creatinine 2.1 mg/dL (0.7-1.3) 1.9 mg/dL (0.7-1.3) Estimated GFR (Cockcroft-Gault) 30.2 33.9 BUN/Creatinine Ratio 17 (6-20) 19 (6-20) Glucose Level 124 mg/dL (70-99) 88 mg/dL (70-99) Lactic Acid Level 1.0 mmol/L (0.4-2.0) Calcium Level 8.2 mg/dL (8.5-10.1) 8.6 mg/dL (8.5-10.1) Magnesium Level 2.4 mg/dL (1.8-2.4) Total Bilirubin 0.3 mg/dL (0.2-1.0) 0.2 mg/dL (0.2-1.0) Aspartate Amino Transf (AST/SGOT) 25 U/L (15-37) 17 U/L (15-37) Alanine Aminotransferase (ALT/SGPT) 19 U/L (16-63) 18 U/L (16-63) Alkaline Phosphatase 43 U/L (46-116) 37 U/L (46-116) Total Protein 5.9 g/dL (6.4-8.2) 5.9 g/dL (6.4-8.2) Albumin 3.2 g/dL (3.4-5.0) 2.9 g/dL (3.4-5.0) Albumin/Globulin Ratio 1.2 (1.0-1.7) 1.0 (1.0-1.7) White Blood Count 7.2 x10^3/uL (4.0-11.0) 6.6 x10^3/uL (4.0-11.0) Red Blood Count 3.02 x10^6/uL (4.30-5.70) 2.89 x10^6/uL (4.30-5.70) Hemoglobin 8.5 g/dL (13.0-17.5) 8.0 g/dL (13.0-17.5) Hematocrit 26.1 % (39.0-53.0) 24.6 % (39.0-53.0) Mean Corpuscular Volume 86 fL (79-100) 85 fL (79-100) Mean Corpuscular Hemoglobin 28 pg (25-35) 28 pg (25-35) Mean Corpuscular Hemoglobin Concent 33 g/dL (31-37) 33 g/dL (31-37) Red Cell Distribution Width 16.4 % (11.5-14.5) 16.1 % (11.5-14.5) Platelet Count 280 x10^3/uL (140-400) 275 x10^3/uL (140-400) Neutrophils (%) (Auto) 78 % (31-73) Lymphocytes (%) (Auto) 12 % (24-48) Monocytes (%) (Auto) 6 % (0-9) Eosinophils (%) (Auto) 4 % (0-3) Basophils (%) (Auto) 0 % (0-3) Neutrophils # (Auto) 5.6 x10^3/uL (1.8-7.7) Lymphocytes # (Auto) 0.8 x10^3/uL (1.0-4.8) Monocytes # (Auto) 0.4 x10^3/uL (0.0-1.1) Eosinophils # (Auto) 0.3 x10^3/uL (0.0-0.7) Basophils # (Auto) 0.0 x10^3/uL (0.0-0.2) Segmented Neutrophils % 77 % (35-66) Band Neutrophils % 1 % (0-9) Lymphocytes % 9 % (24-48) Monocytes % 6 % (0-10) Eosinophils % 5 % (0-5) Myelocytes % 2 % (0-0) Platelet Estimate Adequate (ADEQUATE) Ovalocytes Few Urine Collection Type Unknown Urine Color Yellow Urine Clarity Clear Urine pH 6.0 Urine Specific [place] 1.015 Urine Protein Negative mg/dL (NEG-TRACE) Urine Glucose (UA) Negative mg/dL (NEG) Urine Ketones (Stick) Negative mg/dL (NEG) Urine Blood Negative (NEG) Urine Nitrite Negative (NEG) Urine Bilirubin Negative (NEG) Urine Urobilinogen Dipstick 0.2 mg/dL (0.2 mg/dL) Urine Leukocyte Esterase Negative (NEG) Urine RBC 0 /HPF (0-2) Urine WBC Occ /HPF (0-4) Urine Bacteria 0 /HPF (0-FEW) Urine Hyaline Casts Few /HPF Test 01/29/19 04:31 White Blood Count 5.7 x10^3/uL (4.0-11.0) Red Blood Count 2.75 x10^6/uL (4.30-5.70) Hemoglobin 7.8 g/dL (13.0-17.5) Hematocrit 23.2 % (39.0-53.0) Mean Corpuscular Volume 84 fL (79-100) Mean Corpuscular Hemoglobin 28 pg (25-35) Mean Corpuscular Hemoglobin Concent 34 g/dL (31-37) Red Cell Distribution Width 16.1 % (11.5-14.5) Platelet Count 258 x10^3/uL (140-400) Neutrophils (%) (Auto) 65 % (31-73) Lymphocytes (%) (Auto) 24 % (24-48) Monocytes (%) (Auto) 9 % (0-9) Eosinophils (%) (Auto) 2 % (0-3) Basophils (%) (Auto) 0 % (0-3) Neutrophils # (Auto) 3.7 x10^3/uL (1.8-7.7) Lymphocytes # (Auto) 1.4 x10^3/uL (1.0-4.8) Monocytes # (Auto) 0.5 x10^3/uL (0.0-1.1) Eosinophils # (Auto) 0.1 x10^3/uL (0.0-0.7) Basophils # (Auto) 0.0 x10^3/uL (0.0-0.2) Sodium Level 142 mmol/L (136-145) Potassium Level 4.5 mmol/L (3.5-5.1) Chloride Level 107 mmol/L (98-107) Carbon Dioxide Level 30 mmol/L (21-32) Anion Gap 5 (6-14) Blood Urea Nitrogen 37 mg/dL (8-26) Creatinine 1.9 mg/dL (0.7-1.3) Estimated GFR (Cockcroft-Gault) 33.9 Glucose Level 97 mg/dL (70-99) Calcium Level 8.7 mg/dL (8.5-10.1) Laboratory Tests Test 01/29/19 04:31 White Blood Count 5.7 x10^3/uL (4.0-11.0) Red Blood Count 2.75 x10^6/uL (4.30-5.70) Hemoglobin 7.8 g/dL (13.0-17.5) Hematocrit 23.2 % (39.0-53.0) Mean Corpuscular Volume 84 fL (79-100) Mean Corpuscular Hemoglobin 28 pg (25-35) Mean Corpuscular Hemoglobin Concent 34 g/dL (31-37) Red Cell Distribution Width 16.1 % (11.5-14.5) Platelet Count 258 x10^3/uL (140-400) Neutrophils (%) (Auto) 65 % (31-73) Lymphocytes (%) (Auto) 24 % (24-48) Monocytes (%) (Auto) 9 % (0-9) Eosinophils (%) (Auto) 2 % (0-3) Basophils (%) (Auto) 0 % (0-3) Neutrophils # (Auto) 3.7 x10^3/uL (1.8-7.7) Lymphocytes # (Auto) 1.4 x10^3/uL (1.0-4.8) Monocytes # (Auto) 0.5 x10^3/uL (0.0-1.1) Eosinophils # (Auto) 0.1 x10^3/uL (0.0-0.7) Basophils # (Auto) 0.0 x10^3/uL (0.0-0.2) Sodium Level 142 mmol/L (136-145) Potassium Level 4.5 mmol/L (3.5-5.1) Chloride Level 107 mmol/L (98-107) Carbon Dioxide Level 30 mmol/L (21-32) Anion Gap 5 (6-14) Blood Urea Nitrogen 37 mg/dL (8-26) Creatinine 1.9 mg/dL (0.7-1.3) Estimated GFR (Cockcroft-Gault) 33.9 Glucose Level 97 mg/dL (70-99) Calcium Level 8.7 mg/dL (8.5-10.1) Medications Current Medications Fentanyl Citrate (Fentanyl 2ml Vial) 50 mcg PRN Q2HR PRN IV PAIN; Start 01/27/19 at 16:15 Prednisone (Prednisone) 20 mg DAILY PO Last administered on 01/29/19at 08:44; Start 01/28/19 at 09:00 Acetaminophen/ Hydrocodone Bitart (Lortab 7.5/325) 1 tab PRN Q6HRS PRN PO MODERATE - SEVERE PAIN Last administered on 01/29/19at 08:43; Start 01/27/19 at 18:45 Acetaminophen (Tylenol) 650 mg PRN Q6HRS PRN PO MILD PAIN 1-3; Start 01/27/19 at 19:30 Albuterol Sulfate (Ventolin Neb Soln) 2.5 mg RTQID NEB Last administered on 01/29/19at 08:00; Start 01/27/19 at 20:00 Aspirin (Ecotrin) 81 mg DAILY PO Last administered on 01/29/19at 08:45; Start 01/28/19 at 09:00 Carvedilol (Coreg) 3.125 mg BIDWMEALS PO Last administered on 01/29/19at 08:45; Start 01/27/19 at 21:00 Cyanocobalamin (Vitamin B-12) 1,000 mcg DAILY PO Last administered on 01/29/19 08:44; Start 01/28/19 at 09:00 Diclofenac Sodium (Voltaren) 1 roz BID TP Last administered on 01/29/19 08:46; Start 01/27/19 at 21:00 Fluticasone Propionate (Flonase) 2 spray DAILY NS Last administered on 01/29/19 08:45; Start 01/28/19 at 09:00 Gabapentin (Neurontin) 100 mg TID PO ; Start 01/27/19 at 21:00; Stop 01/28/19 at 10:19; Status DC Hydralazine HCl (Apresoline) 25 mg BID PO Last administered on 01/29/19 08:44; Start 01/27/19 at 21:00 Mirtazapine (Remeron) 7.5 mg HS PO Last administered on 01/28/19at 21:27; Start 01/27/19 at 21:00 Montelukast Sodium (Singulair) 10 mg HS PO Last administered on 01/28/19at 21:27; Start 01/27/19 at 21:00 Nitroglycerin (Nitrostat) 0.4 mg PRN Q5MIN PRN SL CHEST PAIN; Start 01/27/19 at 19:30 Simvastatin (Zocor) 20 mg HS PO Last administered on 01/28/19at 21:27; Start 01/27/19 at 21:00 Cetirizine HCl (ZyrTEC) 10 mg HS PO Last administered on 01/28/19at 21:27; Start 01/27/19 at 21:00 Non-Formulary Medication (Albuterol Sulfate (Albuterol Sulfate Conc Neb Soln)) 2.5 mg [id number] IH ; Start 01/27/19 at 21:00; Stop 01/27/19 at 20:28; Status DC Ascorbic Acid (Vitamin C) 1,000 mg DAILY PO Last administered on 01/29/19at 08:44; Start 01/28/19 at 09:00 Budesonide (Pulmicort) 0.5 mg RTBID NEB Last administered on 01/29/19at 08:00; Start 01/28/19 at 08:00 Calcium/Vitamin D (Oscal D 500mg/ 200uts) 1 tab DAILY PO Last administered on 01/29/19 08:44; Start 01/28/19 at 09:00 Non-Formulary Medication (Fluticasone Propionate (Flonase Allergy Relief)) 2 sprays DAILY NS ; Start 01/28/19 at 09:00; Status UNV Multivitamins (Thera M Plus) 1 tab DAILY PO Last administered on 01/29/19at 08:44; Start 01/28/19 at 09:00 Pantoprazole Sodium (Protonix) 40 mg DAILYAC PO Last administered on 01/28/19 09:03; Start 01/28/19 at 07:30; Stop 01/28/19 at 13:05; Status DC Pharmacy Consult (C.diff Med Screen By Rx) 1 each 1X ONCE [facility] Last administered on 01/28/19at 09:00; Start 01/28/19 at 09:00; Stop 01/28/19 at 09:05; Status DC Senna/Docusate Sodium (Senna Plus) 2 tab DAILY10 PO Last administered on 01/28/19at 12:03; Start 01/28/19 at 11:00 Polyethylene Glycol (miraLAX PACKET) 17 gm DAILY PO Last administered on 01/29/19 08:45; Start 01/28/19 at 11:00 Mupirocin (Bactroban) 1 roz TID TP Last administered on 01/29/19 08:46; Start 01/28/19 at 14:00 Bisacodyl (Dulcolax Tab) 10 mg DAILY PO Last administered on 01/29/19 08:44; Start 01/28/19 at 13:00 Famotidine (Pepcid) 20 mg DAILY PO Last administered on 10/18/19at 08:44; Start 01/29/19 at 09:00 Active Scripts Active Mupirocin Cream (Mupirocin) 15 Gm Cream..g. 1 Roz TP TID 7 Days Prednisone 20 Mg Tablet 20 Mg PO DAILY 7 Days Polyethylene Glycol 3350 17 Gm Powd.pack 17 Gm PO DAILY 30 Days Hydrocodone-Apap 7.5-325 (Hydrocodone Bit/Acetaminophen) 1 Tab Tablet 1 Tab PO PRN Q6HRS PRN 7 Days Proair Hfa (Albuterol Sulfate) 8.5 Gm Hfa.aer.ad 2.5 Mg NEB RTQID Tylenol (Acetaminophen) 325 Mg Tablet 650 Mg PO PRN Q6HRS PRN 30 Days Voltaren (Diclofenac Sodium) 100 Gm Gel..gram. 1 Roz TP BID 30 Days Vitamin B-12 (Cyanocobalamin (Vitamin B-12)) 1,000 Mcg Tablet 1,000 Mcg PO DAILY Reported Fluticasone Propionate Nasal [place] (Fluticasone Propionate) 16 Gm [place].susp 2 [place] NS DAILY Aspir-Low (Aspirin) 81 Mg Tablet.dr 1 Tab PO DAILY Doxazosin Mesylate 8 Mg Tablet 1 Tab PO HS Omeprazole 40 Mg Capsule.dr 1 Cap PO DAILY C-1000 (Ascorbic Acid) 1,000 Mg Tablet.er 1,000 Mg PO DAILY Claritin (Loratadine) 10 Mg Tablet 10 Mg PO DAILY Nitrostat (Nitroglycerin) 0.4 Mg Tab.subl 0.4 Mg SL PRN Q5MIN PRN Calcium 500-Vit D3 600 Tablet (Calcium Carbonate/Vitamin D3) 1 Each Tablet 1 Each PO DAILY Singulair Tablet (Montelukast Sodium) 10 Mg Tablet 10 Mg PO HS Centrum Silver Tablet (Multivits-Min/Fa/Lycopene/Lut) 1 Each Tablet 1 Each PO DAILY Carvedilol (Carvedilol) 3.125 Mg Tablet 1 Tab PO BID Hydralazine Hcl 25 Mg Tablet 1 Tab PO BID Mirtazapine 7.5 Mg Tablet 7.5 Mg PO HS Simvastatin 20 Mg Tablet 20 Mg PO HS Symbicort 160-4.5 Mcg Inhaler (Budesonide/Formoterol Fumarate) 10.2 Gm Hfa.aer.ad 2 Inhaler IH BID Albuterol Sulfate Conc Neb Soln (Albuterol Sulfate) 2.5 Mg/0.5 Ml Vial.neb 2.5 Mg IH [id number] Vitals/I & O Vital Sign - Last 24 Hours 01/28/19 01/28/19 01/28/19 01/28/19 11:00 12:03 12:42 15:00 Temp 98.0 98.9 98.0 98.9 Pulse 67 60 Resp 16 16 B/P (MAP) 132/51 (78) 135/60 (85) Pulse Ox 95 100 96 96 O2 Delivery Room Air Room Air Room Air Room Air 01/28/19 01/28/19 01/28/19 01/28/19 16:50 17:16 19:00 19:45 Temp 98.4 98.4 Pulse 60 56 Resp 18 B/P (MAP) 135/60 147/68 (94) Pulse Ox 98 97 99 O2 Delivery Room Air Room Air Room Air 01/28/19 01/28/19 01/28/19 01/28/19 19:46 21:28 21:37 22:37 Pulse 58 Resp 20 18 B/P (MAP) 148/67 Pulse Ox 99 99 96 O2 Delivery Room Air Room Air Room Air 01/28/19 01/29/19 01/29/19 01/29/19 23:12 03:00 07:00 08:43 Temp 97.9 98.3 98.8 97.9 98.3 98.8 Pulse 55 52 61 Resp 18 18 20 18 B/P (MAP) 129/52 (77) 134/61 (85) 158/82 (107) Pulse Ox 98 96 96 O2 Delivery Room Air Room Air Room Air Room Air 01/29/19 01/29/19 01/29/19 08:44 08:45 08:49 Pulse 61 61 B/P (MAP) 158/82 158/82 Pulse Ox 99 O2 Delivery Room Air Intake and Output 01/28/19 01/28/19 01/29/19 15:00 23:00 07:00 Intake Total 300 ml 0 ml Balance 300 ml 0 ml ARI PORTILLO MD Jan 29, 2019 09:51
[2019-01-29] MEDS: SENNOSIDES/DOCUSATE 8.6/50MG TABLET. PO SCH (10:52)
[2019-01-29 11:00] VITALS: BP 139/61
--- NOTE | 2019-01-29 13:29 | NUR ---
Patient had belongings in Security. Patient belongings were returned. Patient has all belongings except his keys to get into his apartment. No family members are returning calls, but Estella at [facility] [address] states they can let patient into his apartment. She is at [phone]. [facility]. notified. To get patient cab pass. Patient verb. understanding POC.
--- NOTE | 2019-01-29 13:33 | NUR ---
Social Work Elizabeth has spoken with patient, he agrees to [facility] . Discharge instructions, medications and prescription reviewed with patient. Dr. Lucía Lopez states patient has other medications at home and he states he does. Patient verb. understanding all instructions and medications and denies questions. Patient received all belongings, instructions and prescriptions. Await Nursing Drainage Design Coordinator to arrange cab pass for discharge. Patient verb. understanding POC.
--- NOTE | 2019-01-29 15:16 | NUR ---
Patient discharge to home per cab pass with all belongings, instructions and prescription.
--- NOTE | 2019-01-29 16:08 | NUR ---
Late Note: Resumption order faxed to [facility] .
== END 2019-01-29 15:18 | disposition home health service (06) | DRG 206 ==
LOC: ER 14:05 → 5 SOUTH 14:30
PROVIDERS: ADMIT Internal Medicine; ATTEND Internal Medicine
DX: M94.0 Chondrocostal junction syndrome [Tietze] (principal); J44.1 Chronic obstructive pulmonary disease with (acute) exacerbation; I13.0 Hypertensive heart and chronic kidney disease with heart failure and stage 1 through stage 4 chronic kidney disease, or unspecified chronic kidney disease; K21.9 Gastro-esophageal reflux disease without esophagitis; D64.9 Anemia, unspecified; E11.22 Type 2 diabetes mellitus with diabetic chronic kidney disease; E78.00 Pure hypercholesterolemia, unspecified; E86.0 Dehydration; F41.9 Anxiety disorder, unspecified; G62.9 Polyneuropathy, unspecified; H35.30 Unspecified macular degeneration; I25.2 Old myocardial infarction; I50.9 Heart failure, unspecified; M15.9 Polyosteoarthritis, unspecified; N18.3 Chronic kidney disease, stage 3 (moderate); N40.0 Benign prostatic hyperplasia without lower urinary tract symptoms; Z79.899 Other long term (current) drug therapy; Z82.49 Family history of ischemic heart disease and other diseases of the circulatory system; Z86.19 Personal history of other infectious and parasitic diseases; Z86.718 Personal history of other venous thrombosis and embolism; Z87.19 Personal history of other diseases of the digestive system; Z87.891 Personal history of nicotine dependence; Z90.49 Acquired absence of other specified parts of digestive tract; Z95.5 Presence of coronary angioplasty implant and graft; W18.39XA Other fall on same level, initial encounter; Y93.89 Activity, other specified; Y92.89 Other specified places as the place of occurrence of the external cause; Y99.8 Other external cause status
CPT/HCPCS: 36415; 71101; 80048; 80053; 81001; 83605; 83735; 85007; 85025; 85027; 85610; 94640; 94760; J7512; J7613; J7626; 97116; 99285-25; G0378

== ENCOUNTER 2020-02-24 12:45 | Emergency (ER) | payer BC ==
[~2020-02-24] VITALS: Ht 152.4 cm; Wt 77.2 kg
[~2020-02-24 12:45] MED LIST changes: +CIPR500T94 PO; -DICL100G18 TP; +DICL100G54 TP; +DOXY100T PO; +FERR325T72 PO; +MUPI15CR8 TP; +POLY17PO28 PO; +TURM500C4 PO
--- NOTE | 2020-02-24 14:36 | RAD ---
EXAM: CHEST 1 VIEW History: Shortness of breath COMPARISON: 07/12/2019 TECHNIQUE: Single portable radiograph of the chest FINDINGS: The cardiac silhouette is unremarkable. The lungs are clear bilaterally. The costophrenic sulci are clear and well demarcated. IMPRESSION: No radiographic evidence of an acute cardiopulmonary process. Electronically signed by: Justen Swain MD (02/24/2020 2:34 PM) [id number]
[2020-02-24 14:45] LABS: BILIRUBIN,URINE NEGATIVE (NEG); CLARITY,URINE CLEAR; COLOR,URINE YELLOW; NITRITE,URINE NEGATIVE (NEG); PROTEIN,URINE NEGATIVE (NEG-TRACE); UROBILINOGEN,URINE 0.2 mg/dL (0.2 mg/dL)
[2020-02-24 14:53] LABS: BARBITURATES NEG (NEG); BENZODIAZEPINES NEG (NEG); CANNABINOIDS NEG (NEG); COCAINE NEG (NEG); METHADONE NEG (NEG); OPIATES NEG (NEG); PHENCYCLIDINE NEG (NEG)
[2020-02-24 14:55] LABS: AMPHETAMINE/METHAMPHETAMINE NEG (NEG)
[2020-02-24 14:57] LABS: BACTERIA,URINE 0 /HPF (0-FEW); HYALINE CASTS, URINE MODERATE /HPF; RBC,URINE 0 /HPF (0-2); WBC,URINE 0 /HPF (0-4)
[2020-02-24 15:34] LABS: BASO % 1 % (0-3); EOS # 0.3 x10^3/uL (0.0-0.7); EOS % 4 % (0-3); HEMATOCRIT 32.1 % (39.0-53.0); HEMOGLOBIN 10.9 g/dL (13.0-17.5); LYMPH # 0.9 x10^3/uL (1.0-4.8); LYMPH % 14 % (24-48); MEAN CORPUSCULAR HEMOGLOBIN 31 pg (25-35); MEAN CORPUSCULAR HGB CONC 34 g/dL (31-37); MEAN CORPUSCULAR VOLUME 91 fL (79-100); MONO # 0.4 x10^3/uL (0.0-1.1); MONO % 7 % (0-9); NEUT # 4.9 x10^3/uL (1.8-7.7); NEUT % 75 % (31-73); PLATELET COUNT 187 x10^3/uL (140-400); RED BLOOD COUNT 3.55 x10^6/uL (4.30-5.70); RED CELL DISTRIBUTION WIDTH 15.7 % (11.5-14.5); WHITE BLOOD COUNT 6.5 x10^3/uL (4.0-11.0)
[2020-02-24 15:45] LABS: PROTHROMBIN TIME PATIENT 12.5 SEC (11.7-14.0)
--- NOTE | 2020-02-24 15:49 | PHYS DOC ---
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 (ROLLY ALVAREZ APRN) Past Surgical History: Angioplasty, Appendectomy, Other Additional Past Surgical Histo: cardiac stents, ABD SURGERY (ROLLY ALVAREZ APRN) Smoking Status: Former Smoker Additional Information: quit smoking 30 years ago Alcohol Use: Sober Additional Information: no ETOH x 2 years Drug Use: None (ROLLY ALVAREZ APRN) General Adult EDM: Chief Complaint: COUGH HPI: HPI: Patient is a 84-year-old male with history of COPD currently not smoking, hypertension, [place], renal insufficiency, among other illnesses who presents to the ED today complaining of a productive cough for 2 to 3 days. Patient denies any fever. Denies any chest pain or shortness of breath. He states he had Covid 3 months ago. He states he was treated and has tested negative since then. He also has a wound to the left lower extremity that he has been using mupirocin on it, he says the wound is healing very well but would like us to look at it. (ROLLY ALVAREZ APRN) Review of Systems: Review of Systems: Constitutional: Denies fever or chills. [] Eyes: Denies change in visual acuity. [] HENT: Denies nasal congestion or sore throat. [] Respiratory: Reports cough denies shortness of breath. [] Cardiovascular: Denies chest pain or edema. [] GI: Denies abdominal pain, nausea, vomiting, bloody stools or diarrhea. [] : Denies dysuria. [] Musculoskeletal: Denies back pain or joint pain. [] Integument: wound LLE Neurologic: Denies headache, focal weakness or sensory changes. [] Psychiatric: Denies depression or anxiety. [] (ROLLY ALVAREZ APRN) Heart Score: Risk Factors: Risk Factors: DM, Current or recent (<one month) smoker, HTN, HLP, family history of CAD, obesity. Risk Scores: Score 0 - 3: 2.5% MACE over next 6 weeks - Discharge Home Score 4 - 6: 20.3% MACE over next 6 weeks - Admit for Clinical Observation Score 7 - 10: 72.7% MACE over next 6 weeks - Early Invasive Strategies (ROLLY ALVAREZ APRN) Allergies: Allergies: Allergies Coded Allergies Type Severity Reaction Last Updated Verified Sulfa (Sulfonamide Antibiotics) Allergy Severe 02/24/20 Yes clopidogrel Allergy Intermediate 02/24/20 Yes valsartan Allergy Intermediate 02/24/20 Yes warfarin Allergy Intermediate 02/24/20 Yes (ALVERTOROLLY Mederos APRN) Physical Exam: PE: Constitutional: Well developed, well nourished, no acute distress, non-toxic appearance. [] HENT: Normocephalic, atraumatic, bilateral external ears normal, oropharynx moist, no oral exudates, nose normal. [] Eyes: PERRLA, EOMI, conjunctiva normal, no discharge. [] Neck: Normal range of motion, no tenderness, supple, no stridor. [] Cardiovascular:Heart rate regular rhythm, no murmur [] Lungs & Thorax: Bilateral breath sounds clear to auscultation [] Abdomen: Bowel sounds normal, soft, no tenderness, no masses, no pulsatile masses. [] Skin: Warm, dry, left distal cagle with a scabbed region approximately 2 x 1 cm with no signs of infection. Back: No tenderness, no CVA tenderness. [] Extremities: No tenderness, no cyanosis, no clubbing, ROM intact, no edema. [] Neurologic: Alert and oriented X 3, normal motor function, normal sensory function, no focal deficits noted. [] Psychologic: Affect normal, judgement normal, mood normal. [] (DIMITRIJARosa MROLLY APRN) Current Patient Data: Labs: Laboratory Tests Test 02/24/20 14:20 02/24/20 15:18 Urine Collection Type Unknown Urine Color Yellow Urine Clarity Clear Urine pH 6.0 (<5.0-8.0) Urine Specific Mulberry 1.010 (1.000-1.030) Urine Protein Negative mg/dL (NEG-TRACE) Urine Glucose (UA) Negative mg/dL (NEG) Urine Ketones (Stick) Negative mg/dL (NEG) Urine Blood Negative (NEG) Urine Nitrite Negative (NEG) Urine Bilirubin Negative (NEG) Urine Urobilinogen Dipstick 0.2 mg/dL (0.2 mg/dL) Urine Leukocyte Esterase Negative (NEG) Urine RBC 0 /HPF (0-2) Urine WBC 0 /HPF (0-4) Urine Bacteria 0 /HPF (0-FEW) Urine Hyaline Casts Moderate /HPF Urine Mucus Slight /LPF Urine Opiates Screen Neg (NEG) Urine Methadone Screen Neg (NEG) Urine Barbiturates Neg (NEG) Urine Phencyclidine Screen Neg (NEG) Urine Amphetamine/Methamphetamine Neg (NEG) Urine Benzodiazepines Screen Neg (NEG) Urine Cocaine Screen Neg (NEG) Urine Cannabinoids Screen Neg (NEG) Urine Ethyl Alcohol Neg (NEG) White Blood Count 6.5 x10^3/uL (4.0-11.0) Red Blood Count 3.55 x10^6/uL (4.30-5.70) L Hemoglobin 10.9 g/dL (13.0-17.5) L Hematocrit 32.1 % (39.0-53.0) L Mean Corpuscular Volume 91 fL (79-100) Mean Corpuscular Hemoglobin 31 pg (25-35) Mean Corpuscular Hemoglobin Concent 34 g/dL (31-37) Red Cell Distribution Width 15.7 % (11.5-14.5) H Platelet Count 187 x10^3/uL (140-400) Neutrophils (%) (Auto) 75 % (31-73) H Lymphocytes (%) (Auto) 14 % (24-48) L Monocytes (%) (Auto) 7 % (0-9) Eosinophils (%) (Auto) 4 % (0-3) H Basophils (%) (Auto) 1 % (0-3) Neutrophils # (Auto) 4.9 x10^3/uL (1.8-7.7) Lymphocytes # (Auto) 0.9 x10^3/uL (1.0-4.8) L Monocytes # (Auto) 0.4 x10^3/uL (0.0-1.1) Eosinophils # (Auto) 0.3 x10^3/uL (0.0-0.7) Basophils # (Auto) 0.0 x10^3/uL (0.0-0.2) Laboratory Tests 02/24/20 15:18 Vital Signs: Vital Signs Date Time Temp Pulse Resp B/P (MAP) Pulse Ox O2 Delivery O2 Flow Rate FiO2 02/24/20 13:30 98.1 66 20 122/61 (81) 96 Room Air 98.1 (MUTUNGA,ROLLY ASSISTED SALES REPRESENTATIVE) EKG: EK interpreted by Dr. De La Cruz sinus rhythm HR 59 no STEMI[] (ROLLY ALVAREZ APRN) Radiology/Procedures: Radiology/Procedures: []PROCEDURE: PORTABLE CHEST 1V EXAM: CHEST 1 VIEW History: Shortness of breath COMPARISON: 07/12/2019 TECHNIQUE: Single portable radiograph of the chest FINDINGS: The cardiac silhouette is unremarkable. The lungs are clear bilaterally. The costophrenic sulci are clear and well demarcated. IMPRESSION: No radiographic evidence of an acute cardiopulmonary process. Electronically signed by: Justen Swain MD (02/24/2020 2:34 PM) [id number] DICTATED and SIGNED BY: JUSTEN SWAIN MD DATE: 02/24/201433 (ROLLY ALVAREZ APRN) Course & Med Decision Making: Course & Med Decision Making Pertinent Labs and Imaging studies reviewed. (See chart for details) This is a 84-year-old male patient presented to the ED today with a cough for 2 to 3 days. Chest x-ray is negative. Labs are negative for any acute findings, will states his work-up with 93 months ago was positive and treated, he states his last test was negative. He was discharged home with [facility] Phelps. Follow-up with primary care doctor in the course of this week. He states he has prednisone at home which he is supposed to take every day. His O2 sats have been stable at 96% (ROLLY ALVAREZ APRN) Course & Med Decision Making I have reviewed the PA/ADMINISTRATION VICE PRESIDENT's note and Plan of Care. I was available for consultation as needed during the patient's visit in the emergency department. I agree with the clinical impression, plans and disposition. (LUCIA DE LA CRUZ MD) Dragon Disclaimer: Dragon Disclaimer: This electronic medical record was generated, in whole or in part, using a voice recognition dictation system. (ROLLY ALVAREZ APRN) Departure Departure Impression: Primary Impression: Cough Additional Impression: Renal insufficiency Disposition: 01 DC HOME SELF CARE/HOMELESS Condition: STABLE Referrals: MARCELLUS FIERRO MD (PCP) follow up in the next 7 days Patient Instructions: Cough, Adult Additional Instructions: You are seen for a cough, your chest x-ray is negative. Continue using the cream you have for your left lower leg wound, follow-up with your doctor in the course of this week. Scripts Benzonatate (TESSALON PERLE) 100 Mg Capsule 1 CAP PO TID, #21 CAP Prov: ROLLY ALVAREZ APRN 02/24/20 ROLLY ALVAREZ APRN Feb 24, 2020 15:49 LUCIA DE LA CRUZ MD Feb 24, 2020 16:44
[2020-02-24 16:01] LABS: CALCIUM 9.3 mg/dL (8.5-10.1); CREATININE 2.2 mg/dL (0.7-1.3); GFR 28.5; POTASSIUM 3.6 mmol/L (3.5-5.1)
[2020-02-24 16:05] LABS: ALBUMIN 3.8 g/dL (3.4-5.0); ALBUMIN/GLOBULIN RATIO 1.1 (1.0-1.7); MAGNESIUM 2.5 mg/dL (1.8-2.4); TOTAL BILIRUBIN 0.4 mg/dL (0.2-1.0); TOTAL PROTEIN 7.4 g/dL (6.4-8.2)
[2020-02-24 16:23] VITALS: BP 141/72
[2020-02-24] MEDS ORDERED: BENZ100C PO (16:35)
== END 2020-02-24 16:38 | disposition home or self-care (01) ==
LOC: ER 12:45
DX: R05 Cough (principal); N28.9 Disorder of kidney and ureter, unspecified; I11.0 Hypertensive heart disease with heart failure; I50.9 Heart failure, unspecified; J44.9 Chronic obstructive pulmonary disease, unspecified; I25.2 Old myocardial infarction; Z86.718 Personal history of other venous thrombosis and embolism; Z87.891 Personal history of nicotine dependence; Z95.5 Presence of coronary angioplasty implant and graft; Z90.89 Acquired absence of other organs; Z88.2 Allergy status to sulfonamides; Z88.8 Allergy status to other drugs, medicaments and biological substances
CPT/HCPCS: 36415; 71045; 80053; 80307; 81001; 83605; 83735; 83880; 84145; 84443; 84484; 85025; 85610; 85730; 87040; 93005; 99285-25

== ENCOUNTER 2020-04-12 23:53 | Inpatient (IN) | payer BC ==
[~2020-04-12] VITALS: Ht 167.6 cm; Wt 77.0 kg
[~2020-04-12 23:53] MED LIST changes: +ACYC-12 PO; -ACYC400T PO; +BENZ100C PO; -OMEP40CA45 PO; +OMEP40CA7 PO; -POLY17PO28 PO; +POLY17PO52 PO
--- NOTE | 2020-04-13 00:49 | PHYS DOC ---
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 Patient states that bring chart for arrival he started noting that he was feeling generally weak and having trouble moving his limbs. Patient then states that he started having generalized tremors which are most significant in bilateral upper extremities. Denies any vision changes, nausea, vomiting, dizziness or lightheadedness. Patient notably febrile Review of Systems Review of Systems Constitutional: Denies fever or chills [] Eyes: Denies change in visual acuity, redness, or eye pain [] HENT: Denies nasal congestion or sore throat [] Respiratory: Denies cough or shortness of breath [] Cardiovascular: No additional information not addressed in HPI [] GI: Denies abdominal pain, nausea, vomiting, bloody stools or diarrhea [] : Denies dysuria or hematuria [] Musculoskeletal: Denies back pain or joint pain [] Integument: Denies rash or skin lesions [] Neurologic: Denies headache, focal weakness or sensory changes [] Endocrine: Denies polyuria or polydipsia [] All other systems were reviewed and found to be within normal limits, except as documented in this note. Allergies Allergies Allergies Coded Allergies Type Severity Reaction Last Updated Verified Sulfa (Sulfonamide Antibiotics) Allergy Severe 02/24/20 Yes clopidogrel Allergy Intermediate 02/24/20 Yes valsartan Allergy Intermediate 02/24/20 Yes warfarin Allergy Intermediate 02/24/20 Yes Physical Exam Physical Exam Constitutional: Well developed, well nourished, no acute distress, non-toxic appearance. [] HENT: Normocephalic, atraumatic, bilateral external ears normal, oropharynx moist, no oral exudates, nose normal. [] Eyes: PERRLA, EOMI, conjunctiva normal, no discharge. [] Neck: Normal range of motion, no tenderness, supple, no stridor. [] Cardiovascular:Heart rate regular rhythm, no murmur [] Lungs & Thorax: Bilateral breath sounds clear to auscultation [] Abdomen: Bowel sounds normal, soft, no tenderness, no masses, no pulsatile masses. [] Skin: Warm, dry, no erythema, no rash. [] Back: No tenderness, no CVA tenderness. [] Extremities: No tenderness, no cyanosis, no clubbing, ROM intact, no edema. [] Neurologic: Alert and oriented X 3, normal motor function, normal sensory function, no focal deficits noted. [] Psychologic: Affect normal, judgement normal, mood normal. [] EKG EKG [] Radiology/Procedures Radiology/Procedures [] Course & Med Decision Making Course & Med Decision Making Pertinent Labs and Imaging studies reviewed. (See chart for details) 84-year-old male presented emergency department with new onset of fever as well as generalized weakness. Differential this time is broad. The patient states her significant consideration for new onset of pneumonia, intra-abdominal infection or urinary tract infection. Will initiate work-up with initial labs and urinalysis as well as a chest x-ray and reeval Dragon Disclaimer Dragon Disclaimer This electronic medical record was generated, in whole or in part, using a voice recognition dictation system. Departure Departure Referrals: MARCELLUS FIERRO MD (PCP) LETY MURPHY MD Apr 13, 2020 00:49
[2020-04-13 00:56] LABS: BASO % 1 % (0-3); EOS # 0.3 x10^3/uL (0.0-0.7); EOS % 4 % (0-3); HEMATOCRIT 30.7 % (39.0-53.0); HEMOGLOBIN 10.3 g/dL (13.0-17.5); LYMPH # 0.6 x10^3/uL (1.0-4.8); LYMPH % 9 % (24-48); MEAN CORPUSCULAR HEMOGLOBIN 31 pg (25-35); MEAN CORPUSCULAR HGB CONC 34 g/dL (31-37); MEAN CORPUSCULAR VOLUME 92 fL (79-100); MONO # 0.5 x10^3/uL (0.0-1.1); MONO % 7 % (0-9); NEUT # 5.5 x10^3/uL (1.8-7.7); NEUT % 79 % (31-73); PLATELET COUNT 145 x10^3/uL (140-400); RED BLOOD COUNT 3.34 x10^6/uL (4.30-5.70); RED CELL DISTRIBUTION WIDTH 15.7 % (11.5-14.5); WHITE BLOOD COUNT 6.9 x10^3/uL (4.0-11.0)
[2020-04-13 01:08] LABS: CALCIUM 8.9 mg/dL (8.5-10.1); CREATININE 2.4 mg/dL (0.7-1.3); GFR 25.8
[2020-04-13 01:13] LABS: ALBUMIN 3.7 g/dL (3.4-5.0); ALBUMIN/GLOBULIN RATIO 1.2 (1.0-1.7); TOTAL BILIRUBIN 0.4 mg/dL (0.2-1.0); TOTAL PROTEIN 6.8 g/dL (6.4-8.2)
--- NOTE | 2020-04-13 01:13 | RAD ---
XR CHEST 1V 04/13/2020 12:47 AM INDICATION: Fever COMPARISON: 02/24/2020 TECHNIQUE: Portable frontal view of the chest is provided. FINDINGS: The cardiomediastinal silhouette is within normal limits. Lungs are clear. Mild pulmonary emphysema. There are no significant pleural effusions. There is no pulmonary vascular congestion. No pneumothora x. No suspicious osseous abnormality. IMPRESSION: COPD changes without acute cardiopulmonary process. Electronically signed by: Latosha Christianson MD (04/13/2020 1:10 AM) [facility]
--- NOTE | 2020-04-13 04:01 | RAD ---
PQRS Compliance Statement: One or more of the following individualized dose reduction techniques were utilized for this examinat ion: 1. Automated exposure control 2. Adjustment of the mA and/or kV according to patient size 3. Use of iterative reconstruction technique CT head without contrast 04/13/2020 3:34 AM INDICATION: Altered mental status, weakness COMPARISON: 01/16/2019 CT head TECHNIQUE: Multiple axial CT images of the head were obtained from skull base through the vertex with out intravenous contrast. FINDINGS: Head: Ventricles, sulci and basal cisterns are within normal limits. Low-attenuation in the periventricular white matter is suggestive of chronic small vessel ischemic changes. There is no hydrocephalus. Smith -white matter differentiation is normal. There is no acute intracranial hemorrhage. There is no mass, mass effect or midline shift. Posterior fossa is normal in appearance. Visualized portions of the orbits are normal with exception of bilateral lens replacement and senesce nt calcifications. Atelectasis of the left maxillary sinus with complete opacification. Mastoid air c ells are well aerated. Scalp and calvaria are normal. IMPRESSION: No acute intracranial hemorrhage. Low-attenuation in the periventricular white matter is suggestive o f chronic small vessel ischemic changes. Atelectasis of the left maxillary sinus with complete opacification suggestive of chronic sinus infla mmatory changes. Electronically signed by: Latosha Christianson MD (04/13/2020 3:59 AM) [facility]
[2020-04-13 04:40] LABS: INFLUENZA A PATIENT NEGATIVE (NEGATIVE); INFLUENZA B PATIENT NEGATIVE (NEGATIVE)
[2020-04-13 05:35] LABS: BILIRUBIN,URINE NEGATIVE (NEG); CLARITY,URINE CLEAR; COLOR,URINE YELLOW; NITRITE,URINE NEGATIVE (NEG); PROTEIN,URINE NEGATIVE (NEG-TRACE); UROBILINOGEN,URINE 0.2 mg/dL (0.2 mg/dL)
[2020-04-13 05:47] LABS: BACTERIA,URINE 0 /HPF (0-FEW); RBC,URINE RARE /HPF (0-2)
[2020-04-13 05:48] LABS: AMORPHOUS SEDIMENT,UR PRESENT /HPF; HYALINE CASTS, URINE OCCASIONAL /HPF
[2020-04-13] MEDS ORDERED: IPRATRPIUM/ALBUTEROL 0.5/2.5MG 3 ML NEBU. NEB ONE (06:00)
[2020-04-13] MEDS ORDERED: ACETAMINOPHEN 325 MG TABLET. PO PRN (10:15)
[2020-04-13] MEDS ORDERED: NITROGLYCERIN SUBLINGUAL 0.4 MG BOTTLE OF 25. SL PRN (10:15)
--- NOTE | 2020-04-13 10:42 | PDOC ---
Provider Note Date of Service: DATE: 04/13/20 TIME: 10:41 Provider Note H&P dictated #[id number] Justifications for Admission Other Justification MARCELLUS FIERRO MD Apr 13, 2020 10:42
--- NOTE | 2020-04-13 10:57 | HP ---
ADMIT DATE: 04/13/2020 HISTORY OF PRESENT ILLNESS: This 84-year-old male who is well known to me started getting very weak yesterday evening and he could not get up and walk and started falling. Because of the weakness, the patient came to the Emergency Room. In the Emergency Room, the patient was evaluated. He was noted to have fever of 100 degrees Fahrenheit. Chest x-ray was negative. Flu screen was negative. Urinalysis was negative. However, he remained extremely weak. His creatinine is 2.4, which is higher than his baseline; BUN is 40; sodium 143; potassium 4. Procalcitonin level is 0.43. Influenza A and B screens are negative. WBC count is 6.9, hemoglobin 10.3, platelet count is 145,000, polys 79. Because of the fever and severe weakness, the patient was admitted for further evaluation and management. However, initially was admitted to the hospitalist and later on this morning, I was notified. REVIEW OF SYSTEMS: The patient complains of severe weakness. He is also complaining of leg cramps and leg pains. He denies any abdominal pain, nausea, vomiting, fever. He does admit to body aches. He denies any cough, congestion, sinus drainage. Other systems reviewed and are negative. PAST MEDICAL HISTORY: The patient has a history of severe COPD, recurrent bronchitis, anemia. He had COVID-19 infection, possibly about 6 weeks ago and was treated at [facility] and then subsequently at a senior care unit and then came home. He is on chronic steroid treatment and is currently on prednisone 5 mg daily at home. He has a history of hypertension with chronic kidney disease, stage 3; benign prostatic hypertrophy. Baseline creatinine previously is 1.6. He had a coronary artery stent placed in 2011. History of C. 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 PAST SURGICAL HISTORY: The patient had 2 stents placed in coronary artery in 2011, L5-S1 decompression with microdiskectomy and right L4-L5 decompression, partial colectomy, appendectomy, tonsillectomy and hemorrhoidectomy. ALLERGIES: THE PATIENT IS ALLERGIC TO CLARITHROMYCIN THAT CAUSES RASH; CLOPIDOGREL CAUSES RASH; CODEINE AND CYCLOBENZAPRINE CAUSE ITCHING; LISINOPRIL AND PRASUGREL CAUSE NAUSEA, MODERATE TO SEVERE; SULFA ANTIBIOTICS AND TIZANIDINE CAUSE ITCHING, MILD TO MODERATE. FAMILY HISTORY: Father had coronary artery disease. Mother had coronary artery disease. SOCIAL HISTORY: The patient is an ex-cigarette smoker. No history of alcoholism or drug abuse. MEDICATIONS: Reviewed and reconciled. PHYSICAL EXAMINATION: GENERAL: The patient is an elderly male who is alert, but very weak. He is not in acute distress. SKIN: Warm and dry. There is no cyanosis. EYES: Pupils reacting to light. Conjunctivae pale. Sclerae muddy. HEENT: Unremarkable. Partial exam. NECK: Supple. JVP normal. No thyromegaly. Trachea midline. LUNGS: Decreased breath sounds at bases. No wheezing. CARDIOVASCULAR: S1, S2 regular. ABDOMEN: Soft, nontender, bowel sounds present. EXTREMITIES: No edema, no cyanosis, no calf tenderness. CENTRAL NERVOUS SYSTEM: Generalized weakness. LABORATORY FINDINGS: As noted earlier. Chest x-ray shows no acute cardiopulmonary process. CT scan of head shows no acute intracranial hemorrhage. Low attenuation in the periventricular white matter, suggestive of chronic small-vessel ischemic changes, atelectasis of the left maxillary sinus with complete opacification suggestive of chronic sinus inflammatory changes. IMPRESSION: 1. Fever, etiology not clear. 2. Weakness with recurrent falls. 3. Acute renal failure with chronic kidney disease 3. His baseline creatinine is 1.6, now it is 2.4. 4. Recurrent falls. 5. Physical deconditioning. 6. Chronic obstructive pulmonary disease. 7. Coronary artery disease. 8. Carotid artery disease. 9. Osteoarthritis. 10. History of L3 compression fracture. 11. Anemia. 12. Hypertension. 13. History of diabetes mellitus type 2. 14. Anxiety. PLAN: 1. Fever. Workup so far is negative. I will order blood cultures x 2. COVID-19 test is pending. Even though previously, the patient had COVID-19 infection, would still consider in the differential diagnosis. Consult Dr. Dye for Infectious Disease evaluation and management. Tylenol as needed. Flu screen is negative. For details, please refer to the orders. 2. Acute renal failure with chronic kidney disease 3. Start IV normal saline. Because of the patient's history of congestive heart failure, will be cautiously replacing IV fluids, resume diet. 3. Osteoarthritis. Continue hydrocodone, turmeric and Voltaren gel and Tylenol as needed. 4. Physical deconditioning and recurrent falls. Consult Dr. Bass for rehab evaluation and management. Start PT/OT. For further details, please refer to the orders. MARCELLUS FIERRO MD DR: TEMITOPE/lory JOB#: [id number] / [id number]
[2020-04-13 11:00] VITALS: BP 117/54
[2020-04-13] MEDS ORDERED: predniSONE 20 MG TABLET PO SCH (11:00)
[2020-04-13] MEDS ORDERED: CARVEDILOL 3.125 MG TABLET. PO SCH (11:00)
[2020-04-13] MEDS: ALBUTEROL SULFATE 2.5 MG/3 ML NEBU. NEB SCH ×3 (12:00→20:00)
[2020-04-13] MEDS: FLUTICASONE 50MCG/NASAL SPRAY 16GM BOTTLE. NS SCH (12:37)
[2020-04-13] MEDS: ASPIRIN ENTERIC COATED 81 MG TABLET.DR. PO SCH (12:37)
[2020-04-13] MEDS: hydrALAZINE 25 MG TABLET PO SCH ×2 (12:37→21:09)
[2020-04-13] MEDS ORDERED: NON FORMULARY ITEM (Albuterol Sulfate (Albuterol Sulfate Conc Neb Soln) 2.5 MG) IH SCH (13:00)
[2020-04-13] MEDS: DICLOFENAC SODIUM 1% TOPICAL GEL 100GM TUBE. TP SCH ×2 (13:13→21:07)
[2020-04-13] MEDS: IV NORMAL SALINE 1000ML BAG 1,000 ML IV SCH (13:14)
--- NOTE | 2020-04-13 14:33 | NUR ---
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
[2020-04-13 15:00] VITALS: BP 133/79
[2020-04-13] MEDS: FERROUS SULFATE 325 MG TABLET. PO SCH (17:00)
[2020-04-13] MEDS: CARVEDILOL 3.125 MG TABLET. PO SCH (18:00)
[2020-04-13 19:00] VITALS: BP 91/43
[2020-04-13] MEDS ORDERED: PRED20TA PO (19:49)
[2020-04-13] MEDS ORDERED: TURMERIC ROOT EXTRACT PO SCH (21:00)
[2020-04-13] MEDS ORDERED: TURMERIC PO SCH (21:00)
[2020-04-13] MEDS: MIRTAZAPINE 7.5 MG TABLET. PO SCH (21:06)
[2020-04-13] MEDS: MONTELUKAST SODIUM 10 MG TABLET. PO SCH (21:07)
[2020-04-13] MEDS: SIMVASTATIN 20 MG TABLET PO SCH (21:07)
[2020-04-13] MEDS: DOXAZOSIN MESYLATE 4 MG TABLET. PO SCH (21:10)
[2020-04-13 23:00] VITALS: BP 107/53
[2020-04-14] MEDS: IV NORMAL SALINE 1000ML BAG 1,000 ML IV SCH ×2 (00:43→13:40)
[2020-04-14 03:31] VITALS: BP 141/60
[2020-04-14 04:52] LABS: BASO % 1 % (0-3); EOS # 0.2 x10^3/uL (0.0-0.7); EOS % 4 % (0-3); LYMPH # 1.2 x10^3/uL (1.0-4.8); LYMPH % 23 % (24-48); MEAN CORPUSCULAR HEMOGLOBIN 31 pg (25-35); MEAN CORPUSCULAR HGB CONC 33 g/dL (31-37); MEAN CORPUSCULAR VOLUME 92 fL (79-100); MONO # 0.5 x10^3/uL (0.0-1.1); MONO % 10 % (0-9); NEUT # 3.1 x10^3/uL (1.8-7.7); NEUT % 62 % (31-73); PLATELET COUNT 137 x10^3/uL (140-400); RED BLOOD COUNT 2.94 x10^6/uL (4.30-5.70); RED CELL DISTRIBUTION WIDTH 15.2 % (11.5-14.5)
[2020-04-14 05:13] LABS: ALBUMIN 2.8 g/dL (3.4-5.0); ALBUMIN/GLOBULIN RATIO 1.1 (1.0-1.7); CREATININE 1.8 mg/dL (0.7-1.3); MAGNESIUM 2.3 mg/dL (1.8-2.4); POTASSIUM 3.7 mmol/L (3.5-5.1); TOTAL BILIRUBIN 0.4 mg/dL (0.2-1.0); TOTAL PROTEIN 5.4 g/dL (6.4-8.2)
[2020-04-14 07:00] VITALS: BP 129/67
[2020-04-14] MEDS: ALBUTEROL SULFATE 2.5 MG/3 ML NEBU. NEB SCH ×4 (08:00→20:00)
[2020-04-14] MEDS: CETIRIZINE HCL 10 MG TABLET. PO SCH (08:17)
[2020-04-14] MEDS: ASPIRIN ENTERIC COATED 81 MG TABLET.DR. PO SCH (08:17)
[2020-04-14] MEDS: predniSONE 10 MG TABLET PO SCH (08:17)
[2020-04-14] MEDS: CYANOCOBALAMIN (VITAMIN B-12) 1,000 MCG TABLET. PO SCH (08:17)
[2020-04-14] MEDS: FLUTICASONE 50MCG/NASAL SPRAY 16GM BOTTLE. NS SCH (08:18)
[2020-04-14] MEDS: FERROUS SULFATE 325 MG TABLET. PO SCH ×2 (08:18→17:30)
[2020-04-14] MEDS: MULTIVITAMIN with MINERAL TABLET. PO SCH (08:18)
[2020-04-14] MEDS: POLYETHYLENE GLYCOL 3350 17 GM PACKET. PO SCH (08:18)
[2020-04-14] MEDS: DICLOFENAC SODIUM 1% TOPICAL GEL 100GM TUBE. TP SCH ×2 (09:00→21:00)
--- NOTE | 2020-04-14 09:11 | NUR ---
received call from lab at 0820 regarding blood culture result, paged Dr. Dye at [phone], new orders received.
[2020-04-14] MEDS: CARVEDILOL 3.125 MG TABLET. PO SCH ×2 (09:33→17:31)
[2020-04-14] MEDS: hydrALAZINE 25 MG TABLET PO SCH ×2 (09:33→22:41)
--- NOTE | 2020-04-14 10:28 | PDOC ---
Infectious Disease Note Vital Signs: Vital Signs Vital Signs Date Time Temp Pulse Resp B/P (MAP) Pulse Ox O2 Delivery O2 Flow Rate FiO2 04/14/20 09:33 56 129/67 04/14/20 07:00 96.1 18 96 Room Air 96.1 Medications: Inpatient Meds: Current Medications Medications (Trade) Dose Ordered Sig/Juhi Start Time Stop Time Status Last Admin Dose Admin Acetaminophen (Tylenol) 650 mg PRN Q6HRS PRN 04/13/20 10:15 Acetaminophen/ Hydrocodone Bitart (Lortab 7.5/325) 1 tab PRN Q6HRS PRN 04/13/20 10:15 Albuterol Sulfate (Ventolin Neb Soln) 2.5 mg RTQID 04/13/20 12:00 Albuterol/ Ipratropium (Duoneb) 3 ml 1X ONCE 04/13/20 06:00 04/13/20 06:01 DC 04/13/20 09:22 3 ML Aspirin (Ecotrin) 81 mg DAILY 04/13/20 11:00 04/14/20 08:17 81 MG Carvedilol (Coreg) 3.125 mg BIDWMEALS 04/13/20 18:00 04/14/20 09:33 3.125 MG Cetirizine HCl (ZyrTEC) 10 mg DAILY 04/14/20 09:00 04/14/20 08:17 10 MG Cyanocobalamin (Vitamin B-12) 1,000 mcg DAILY 04/14/20 09:00 04/14/20 08:17 1,000 MCG Daptomycin 450 mg/ Sodium Chloride 50 ml @ 100 mls/hr Q24H 04/14/20 11:00 Diclofenac Sodium (Voltaren) 1 naif BID 04/13/20 11:00 04/14/20 09:00 1 NAIF Doxazosin Mesylate (Cardura) 8 mg HS 04/13/20 21:00 04/13/20 21:10 8 MG Ferrous Sulfate (Feosol) 325 mg BIDWMEALS 04/13/20 17:00 04/14/20 08:18 325 MG Fluticasone Propionate (Flonase) 2 spray DAILY 04/13/20 11:00 04/14/20 08:18 2 SPRAY Hydralazine HCl (Apresoline) 25 mg BID 04/13/20 11:00 04/14/20 09:33 25 MG Mirtazapine (Remeron) 7.5 mg HS 04/13/20 21:00 04/13/20 21:06 7.5 MG Montelukast Sodium (Singulair) 10 mg HS 04/13/20 21:00 04/13/20 21:07 10 MG Multivitamins (Thera M Plus) 1 tab DAILY 04/14/20 09:00 04/14/20 08:18 1 TAB Nitroglycerin (Nitrostat) 0.4 mg PRN Q5MIN PRN 04/13/20 10:15 Non-Formulary Medication (Albuterol Sulfate (Albuterol Sulfate Conc Neb Soln)) 2.5 mg [id number] 04/13/20 13:00 UNV Non-Formulary Medication (Turmeric/ Turmeric Root Extract (Turmeric 500 mg Capsule)) 1 cap BID 04/13/20 21:00 UNV Polyethylene Glycol (miraLAX PACKET) 17 gm DAILY 04/14/20 09:00 04/14/20 08:18 17 GM Prednisone (Prednisone) 10 mg DAILY 04/14/20 09:00 04/14/20 08:17 10 MG Simvastatin (Zocor) 20 mg HS 04/13/20 21:00 04/13/20 21:07 20 MG Sodium Chloride 1,000 ml @ 75 mls/hr [id number] 04/13/20 10:30 04/14/20 00:43 75 MLS/HR Labs: Lab Laboratory Tests Test 04/14/20 04:30 White Blood Count 5.0 x10^3/uL (4.0-11.0) Red Blood Count 2.94 x10^6/uL (4.30-5.70) Hemoglobin 9.0 g/dL (13.0-17.5) Hematocrit 27.0 % (39.0-53.0) Mean Corpuscular Volume 92 fL (79-100) Mean Corpuscular Hemoglobin 31 pg (25-35) Mean Corpuscular Hemoglobin Concent 33 g/dL (31-37) Red Cell Distribution Width 15.2 % (11.5-14.5) Platelet Count 137 x10^3/uL (140-400) Neutrophils (%) (Auto) 62 % (31-73) Lymphocytes (%) (Auto) 23 % (24-48) Monocytes (%) (Auto) 10 % (0-9) Eosinophils (%) (Auto) 4 % (0-3) Basophils (%) (Auto) 1 % (0-3) Neutrophils # (Auto) 3.1 x10^3/uL (1.8-7.7) Lymphocytes # (Auto) 1.2 x10^3/uL (1.0-4.8) Monocytes # (Auto) 0.5 x10^3/uL (0.0-1.1) Eosinophils # (Auto) 0.2 x10^3/uL (0.0-0.7) Basophils # (Auto) 0.0 x10^3/uL (0.0-0.2) Sodium Level 142 mmol/L (136-145) Potassium Level 3.7 mmol/L (3.5-5.1) Chloride Level 109 mmol/L (98-107) Carbon Dioxide Level 26 mmol/L (21-32) Anion Gap 7 (6-14) Blood Urea Nitrogen 37 mg/dL (8-26) Creatinine 1.8 mg/dL (0.7-1.3) Estimated GFR (Cockcroft-Gault) 36.0 BUN/Creatinine Ratio 21 (6-20) Glucose Level 90 mg/dL (70-99) Calcium Level 8.0 mg/dL (8.5-10.1) Magnesium Level 2.3 mg/dL (1.8-2.4) Total Bilirubin 0.4 mg/dL (0.2-1.0) Aspartate Amino Transf (AST/SGOT) 24 U/L (15-37) Alanine Aminotransferase (ALT/SGPT) 23 U/L (16-63) Alkaline Phosphatase 42 U/L (46-116) Creatine Kinase 314 U/L (39-308) Total Protein 5.4 g/dL (6.4-8.2) Albumin 2.8 g/dL (3.4-5.0) Albumin/Globulin Ratio 1.1 (1.0-1.7) Objective: Assessment: Patient seen and examined ID consult dictated Plan: Plan of Care Thank you AMBER CARRASQUILLO MD Apr 14, 2020 10:28
[2020-04-14 11:00] VITALS: BP 119/61
[2020-04-14] MEDS ORDERED: cefTRIAXone IV Push 2 GM VIAL. IVP SCH (11:00)
[2020-04-14] MEDS: DAPTOmycin (GENERIC) IVPB 450 MG in IV NORMAL SALINE 50ML 50 ML IV SCH (11:03)
--- NOTE | 2020-04-14 11:04 | PDOC ---
PROGRESS NOTES Date of Service: DATE: 04/14/20 TIME: 11:04 Subjective Subjective feels better today Objective Objective Vital Signs Date Time Temp Pulse Resp B/P (MAP) Pulse Ox O2 Delivery O2 Flow Rate FiO2 04/14/20 09:33 56 129/67 04/14/20 07:00 96.1 18 96 Room Air 96.1 Intake and Output 04/14/20 07:00 Intake Total 1730 ml Output Total 1200 ml Balance 530 ml Intake Oral 730 ml IV Total 1000 ml Output Urine Total 1200 ml Physical Exam Abdomen: Soft Heart: Regular rate, Normal S1, Normal S2 Extremities: No clubbing General: Oriented X3 HEENT: Atraumatic MUSCULOSKELETAL: No joint tenderness, No deformity, No swelling Neuro: Normal speech Psych/Mental Status: Mental status NL Skin: No breakdown Diagnosis Problem List Problems Medical Problems: (1) Person under investigation for COVID-19 Status: Acute Assessment Assessment Problems Medical Problems: (1) Person under investigation for COVID-19 Status: Acute IMPRESSION: 1. Fever, etiology not clear. 2. Weakness with recurrent falls. 3. Acute renal failure with chronic kidney disease 3. His baseline creatinine is 1.6, now it is 2.4. 4. Recurrent falls. 5. Physical deconditioning. 6. Chronic obstructive pulmonary disease. 7. Coronary artery disease. 8. Carotid artery disease. 9. Osteoarthritis. 10. History of L3 compression fracture. 11. Anemia. 12. Hypertension. 13. History of diabetes mellitus type 2. 14. Anxiety. PLAN: positive blood c/s 2 sets iv daptomycin+rocephin. cr improving with fluids 1.7 1. Fever. Workup so far is negative. I will order blood cultures x 2. COVID-19 test is pending. Even though previously, the patient had COVID-19 infection, would still consider in the differential diagnosis. Consult Dr. Dye for Infectious Disease evaluation and management. Tylenol as needed. Flu screen is negative. For details, please refer to the orders. 2. Acute renal failure with chronic kidney disease 3. Start IV normal saline. Because of the patient's history of congestive heart failure, will be cautiously replacing IV fluids, resume diet. 3. Osteoarthritis. Continue hydrocodone, turmeric and Voltaren gel and Tylenol as needed. 4. Physical deconditioning and recurrent falls. Consult Dr. Bass for rehab evaluation and management. Start PT/OT. Plan Plan of Care Problems Medical Problems: (1) Person under investigation for COVID-19 Status: Acute Comment Review of Relevant I have reviewed the following items tawnya (where applicable) has been applied. Labs Laboratory Tests Test 04/14/20 04:30 White Blood Count 5.0 x10^3/uL (4.0-11.0) Red Blood Count 2.94 x10^6/uL (4.30-5.70) Hemoglobin 9.0 g/dL (13.0-17.5) Hematocrit 27.0 % (39.0-53.0) Mean Corpuscular Volume 92 fL (79-100) Mean Corpuscular Hemoglobin 31 pg (25-35) Mean Corpuscular Hemoglobin Concent 33 g/dL (31-37) Red Cell Distribution Width 15.2 % (11.5-14.5) Platelet Count 137 x10^3/uL (140-400) Neutrophils (%) (Auto) 62 % (31-73) Lymphocytes (%) (Auto) 23 % (24-48) Monocytes (%) (Auto) 10 % (0-9) Eosinophils (%) (Auto) 4 % (0-3) Basophils (%) (Auto) 1 % (0-3) Neutrophils # (Auto) 3.1 x10^3/uL (1.8-7.7) Lymphocytes # (Auto) 1.2 x10^3/uL (1.0-4.8) Monocytes # (Auto) 0.5 x10^3/uL (0.0-1.1) Eosinophils # (Auto) 0.2 x10^3/uL (0.0-0.7) Basophils # (Auto) 0.0 x10^3/uL (0.0-0.2) Sodium Level 142 mmol/L (136-145) Potassium Level 3.7 mmol/L (3.5-5.1) Chloride Level 109 mmol/L (98-107) Carbon Dioxide Level 26 mmol/L (21-32) Anion Gap 7 (6-14) Blood Urea Nitrogen 37 mg/dL (8-26) Creatinine 1.8 mg/dL (0.7-1.3) Estimated GFR (Cockcroft-Gault) 36.0 BUN/Creatinine Ratio 21 (6-20) Glucose Level 90 mg/dL (70-99) Calcium Level 8.0 mg/dL (8.5-10.1) Magnesium Level 2.3 mg/dL (1.8-2.4) Total Bilirubin 0.4 mg/dL (0.2-1.0) Aspartate Amino Transf (AST/SGOT) 24 U/L (15-37) Alanine Aminotransferase (ALT/SGPT) 23 U/L (16-63) Alkaline Phosphatase 42 U/L (46-116) Creatine Kinase 314 U/L (39-308) Total Protein 5.4 g/dL (6.4-8.2) Albumin 2.8 g/dL (3.4-5.0) Albumin/Globulin Ratio 1.1 (1.0-1.7) Microbiology 04/13/20 Blood Culture - Final, Complete Medications Current Medications Albuterol Sulfate (Ventolin Neb Soln) 2.5 mg RTQID NEB ; Start 04/13/20 at 12:00 Carvedilol (Coreg) 3.125 mg BIDWMEALS PO Last administered on 04/14/20at 09:33; Start 04/13/20 at 18:00 Ceftriaxone Sodium (Rocephin) 2 gm Q24H IVP ; Start 04/14/20 at 11:00 Cetirizine HCl (ZyrTEC) 10 mg DAILY PO Last administered on 04/14/20at 08:17; Start 04/14/20 at 09:00 Cyanocobalamin (Vitamin B-12) 1,000 mcg DAILY PO Last administered on 04/14/20at 08:17; Start 04/14/20 at 09:00 Daptomycin 450 mg/ Sodium Chloride 50 ml @ 100 mls/hr Q24H IV ; Start 04/14/20 at 11:00 Doxazosin Mesylate (Cardura) 8 mg HS PO Last administered on 04/13/20at 21:10; Start 04/13/20 at 21:00 Ferrous Sulfate (Feosol) 325 mg BIDWMEALS PO Last administered on 04/14/20at 08:18; Start 04/13/20 at 17:00 Mirtazapine (Remeron) 7.5 mg HS PO Last administered on 04/13/20at 21:06; Start 12/31/20 at 21:00 Montelukast Sodium (Singulair) 10 mg HS PO Last administered on 04/13/20at 21:07; Start 04/13/20 at 21:00 Multivitamins (Thera M Plus) 1 tab DAILY PO Last administered on 04/14/20at 08:18; Start 04/14/20 at 09:00 Non-Formulary Medication (Albuterol Sulfate (Albuterol Sulfate Conc Neb Soln)) 2.5 mg [id number] IH ; Start 04/13/20 at 13:00; Status UNV Non-Formulary Medication (Turmeric/ Turmeric Root Extract (Turmeric 500 mg Capsule)) 1 cap BID PO ; Start 04/13/20 at 21:00; Status UNV Polyethylene Glycol (miraLAX PACKET) 17 gm DAILY PO Last administered on 04/14/20at 08:18; Start 04/14/20 at 09:00 Prednisone (Prednisone) 10 mg DAILY PO Last administered on 04/14/20at 08:17; Start 04/14/20 at 09:00 Simvastatin (Zocor) 20 mg HS PO Last administered on 04/13/20at 21:07; Start 04/13/20 at 21:00 Vitals/I & O Vital Sign - Last 24 Hours 04/13/20 04/13/20 04/13/20 04/13/20 12:37 12:37 15:00 18:00 Pulse 73 73 91 73 Resp 18 B/P (MAP) 117/59 117/59 133/79 (97) 117/59 Pulse Ox 93 04/13/20 04/13/20 04/13/20 04/13/20 19:00 19:55 21:09 21:10 Temp 98.0 98.0 Pulse 55 72 72 Resp 18 B/P (MAP) 91/43 (59) 110/60 110/60 Pulse Ox 98 O2 Delivery Room Air Room Air 04/13/20 04/14/20 04/14/20 04/14/20 23:00 03:31 07:00 09:33 Temp 97.7 97.3 96.1 97.7 97.3 96.1 Pulse 60 65 56 56 Resp 18 18 18 B/P (MAP) 107/53 (71) 141/60 (87) 129/67 (87) 129/67 Pulse Ox 97 96 96 O2 Delivery Room Air Room Air Room Air 04/14/20 09:33 Pulse 56 B/P (MAP) 129/67 Intake and Output 04/13/20 04/13/20 04/14/20 15:00 23:00 07:00 Intake Total 50 ml 320 ml 1360 ml Output Total 500 ml 700 ml Balance 50 ml -180 ml 660 ml Justifications for Admission Other Justification BELEN IVORY MD Apr 14, 2020 11:04
[2020-04-14] MEDS ORDERED: POLYVINYL ALCOHOL 1.4% OPHTH SOLUTION 15ML BOTTLE. OU PRN (11:15)
[2020-04-14 15:00] VITALS: BP 137/70
--- NOTE | 2020-04-14 17:28 | CONS ---
DATE OF CONSULTATION: 04/14/2020 REFERRING PHYSICIAN: Dr. Lopez. REASON FOR CONSULTATION: History of COVID-19, generalized weakness. HISTORY OF PRESENT ILLNESS: An 84-year-old male with history of COVID-19 about 6 weeks ago, presented to the ER with complaints of generalized weakness and tremors. He had difficulty with daily activities. He was having temperature of 100 degrees. White count of 6.9, platelets of 145, creatinine of 2.4. Procalcitonin 0.43. UA was negative. Influenza screen was negative. COVID-19 was sent out. Blood cultures were done, 2/4 bottles are positive for Gram-positive cocci in clusters. The patient is currently not on any antibiotics. ID consultation has been requested for further evaluation and treatment. PAST MEDICAL HISTORY: Severe COPD, recurrent bronchitis, anemia, history of COVID-19 infection 6 weeks ago and was treated at [facility], hypertension, CKD, benign prostatic hypertrophy, coronary artery disease, history of C. diff, history of PR, DVT, small bowel obstruction, carotid artery disease, GERD, hemorrhoids, hypertension, lumbar spinal stenosis, macular degeneration, history of Staphylococcus bacteremia. PAST SURGICAL HISTORY: Stent, lumbar decompression surgery with microdiskectomy, partial colectomy, appendectomy, tonsillectomy, hemorrhoidectomy. ALLERGIES: CLARITHROMYCIN CAUSING RASH, CLOPIDOGREL, CODEINE, CYCLOBENZAPRINE, LISINOPRIL, PRASUGREL, SULFA ANTIBIOTICS, TIZANIDINE. FAMILY HISTORY: Noncontributory. SOCIAL HISTORY: Ex-smoker, ex-smoker, no alcohol, no drug use. CURRENT MEDICATIONS: Reviewed. ANTIBIOTICS: None. PHYSICAL EXAMINATION: VITAL SIGNS: Temperature 96.1, pulse 56, respiratory rate 18, blood pressure 129/67, oxygen saturation 96% on room air. GENERAL: Alert, awake, hard of hearing male, sitting in chair, in no acute distress, appears comfortable. HEENT: Normocephalic, atraumatic, anicteric. NECK: Supple, no JVD. LUNGS: Clear bilaterally. No wheezing. HEART: S1, S2, no murmurs. ABDOMEN: Soft, nontender, nondistended. EXTREMITIES: No edema, no cyanosis. DERMATOLOGIC: Warm, dry. No generalized rash. NEUROLOGIC: Alert and oriented x 3. Generalized weakness. PSYCHIATRIC: Cooperative. LABORATORY DATA: WBC 5.0, hemoglobin 9.0, hematocrit 27, platelets 137. Sodium 142, potassium 3.7, chloride 109, bicarbonate 26, BUN 37, creatinine 1.8, was 2.4. CK 314, magnesium 8.0, procalcitonin 0.43, total protein 5.4, albumin 2.8. UA negative. Influenza screen negative. COVID pending. Micro 2/4 bottles positive for GPC, ID and GREG pending. IMAGING: Chest x-ray: COPD changes. Head CT: No acute intracranial abnormalities. Atelectasis of the left maxillary sinus with complete opacification suggestive of chronic sinus inflammatory changes. IMPRESSION: 1. Generalized weakness. 2. GPC.Bacteremia, 2/4 bottles present on admission 3. Acute kidney injury on chronic kidney disease. 4. Fever. 5. Severe chronic obstructive pulmonary disease. 6. History of COVID-19 infection, treated at [facility] 6 weeks ago. 7. Coronary artery disease. 8. Physical deconditioning. 9. Diabetes mellitus 2. The patient is on chronic prednisone. RECOMMENDATIONS: 1. Start daptomycin. 2. Continue ceftriaxone and doxycycline for now. 3. Follow up labs and cultures. 4. Continue supportive care. 5. Follow up COVID-19. 6. Discussed with RN. Thank you for consulting Infectious Disease to participate in this patient's care. If you have any questions, do not hesitate to contact me. AMBER CARRASQUILLO MD DR: CORY/lory JOB#: [id number] / [id number]
[2020-04-14 19:30] VITALS: BP 127/60
[2020-04-14] MEDS: MONTELUKAST SODIUM 10 MG TABLET. PO SCH (22:41)
[2020-04-14] MEDS: LACTOBACILLUS RHAMNOSUS GG 1 CAPSULE. PO SCH (22:41)
[2020-04-14] MEDS: SIMVASTATIN 20 MG TABLET PO SCH (22:41)
[2020-04-14] MEDS: DOXAZOSIN MESYLATE 4 MG TABLET. PO SCH (22:42)
[2020-04-14] MEDS: MIRTAZAPINE 7.5 MG TABLET. PO SCH (22:42)
[2020-04-14] MEDS: HYDROcodone/APAP 7.5/325MG 1 TAB TABLET PO PRN (22:43)
[2020-04-14 23:00] VITALS: BP 142/68
[2020-04-15 02:45] VITALS: BP 134/65
[2020-04-15 04:15] LABS: BASO % 1 % (0-3); EOS # 0.3 x10^3/uL (0.0-0.7); EOS % 5 % (0-3); HEMATOCRIT 26.3 % (39.0-53.0); HEMOGLOBIN 8.8 g/dL (13.0-17.5); LYMPH # 1.1 x10^3/uL (1.0-4.8); LYMPH % 22 % (24-48); MEAN CORPUSCULAR HEMOGLOBIN 31 pg (25-35); MEAN CORPUSCULAR HGB CONC 33 g/dL (31-37); MEAN CORPUSCULAR VOLUME 92 fL (79-100); MONO # 0.5 x10^3/uL (0.0-1.1); MONO % 9 % (0-9); NEUT # 3.2 x10^3/uL (1.8-7.7); NEUT % 63 % (31-73); PLATELET COUNT 133 x10^3/uL (140-400); RED BLOOD COUNT 2.87 x10^6/uL (4.30-5.70); RED CELL DISTRIBUTION WIDTH 15.3 % (11.5-14.5)
[2020-04-15 04:45] LABS: CALCIUM 8.2 mg/dL (8.5-10.1); CREATININE 1.7 mg/dL (0.7-1.3); GFR 38.4; POTASSIUM 3.9 mmol/L (3.5-5.1)
[2020-04-15 07:00] VITALS: BP 110/54
[2020-04-15] MEDS: ALBUTEROL SULFATE 2.5 MG/3 ML NEBU. NEB SCH ×4 (07:33→20:55)
--- NOTE | 2020-04-15 08:51 | PDOC ---
Infectious Disease Note Subjective: Subjective pt says feels better Vital Signs: Vital Signs Vital Signs Date Time Temp Pulse Resp B/P (MAP) Pulse Ox O2 Delivery O2 Flow Rate FiO2 04/15/20 07:38 100 Room Air 04/15/20 02:45 97.1 98 20 134/65 (88) 97.1 Physical Exam: PHYSICAL EXAM GENERAL: Alert, awake, hard of hearing male, sitting in chair, in no acute distress, appears comfortable. HEENT: Normocephalic, atraumatic, anicteric. NECK: Supple, no JVD. LUNGS: Clear bilaterally. No wheezing. HEART: S1, S2, no murmurs. ABDOMEN: Soft, nontender, nondistended. EXTREMITIES: No edema, no cyanosis. DERMATOLOGIC: Warm, dry. No generalized rash. NEUROLOGIC: Alert and oriented x 3. Generalized weakness. PSYCHIATRIC: Cooperative. Medications: Inpatient Meds: Current Medications Medications (Trade) Dose Ordered Sig/Juhi Start Time Stop Time Status Last Admin Dose Admin Acetaminophen (Tylenol) 650 mg PRN Q6HRS PRN 04/13/20 10:15 Acetaminophen/ Hydrocodone Bitart (Lortab 7.5/325) 1 tab PRN Q6HRS PRN 04/13/20 10:15 04/14/20 22:43 1 TAB Albuterol Sulfate (Ventolin Neb Soln) 2.5 mg RTQID 04/13/20 12:00 04/15/20 07:33 2.5 MG Albuterol/ Ipratropium (Duoneb) 3 ml 1X ONCE 04/13/20 06:00 04/13/20 06:01 DC 04/13/20 09:22 3 ML Aspirin (Ecotrin) 81 mg DAILY 04/13/20 11:00 04/14/20 08:17 81 MG Carvedilol (Coreg) 3.125 mg BIDWMEALS 04/13/20 18:00 04/14/20 17:31 3.125 MG Ceftriaxone Sodium (Rocephin) 2 gm Q24H 04/14/20 11:00 04/14/20 11:04 2 GM Cetirizine HCl (ZyrTEC) 10 mg DAILY 04/14/20 09:00 04/14/20 08:17 10 MG Cyanocobalamin (Vitamin B-12) 1,000 mcg DAILY 04/14/20 09:00 04/14/20 08:17 1,000 MCG Daptomycin 450 mg/ Sodium Chloride 50 ml @ 100 mls/hr Q24H 04/14/20 11:00 04/14/20 11:03 100 MLS/HR Diclofenac Sodium (Voltaren) 1 naif BID 04/13/20 11:00 04/14/20 09:00 1 NAIF Doxazosin Mesylate (Cardura) 8 mg HS 04/13/20 21:00 04/14/20 22:42 8 MG Ferrous Sulfate (Feosol) 325 mg BIDWMEALS 04/13/20 17:00 04/14/20 17:30 325 MG Fluticasone Propionate (Flonase) 2 spray DAILY 04/13/20 11:00 04/14/20 08:18 2 SPRAY Glycerin/ Hypromellose/ Polyethylene (Artificial Tears) 1 drop PRN Q15MIN PRN 04/14/20 11:15 04/14/20 16:44 1 DROP Hydralazine HCl (Apresoline) 25 mg BID 04/13/20 11:00 04/14/20 22:41 25 MG Lactobacillus Rhamnosus (Culturelle) 1 cap BID 04/14/20 21:00 04/14/20 22:41 1 CAP Mirtazapine (Remeron) 7.5 mg HS 04/13/20 21:00 04/14/20 22:42 7.5 MG Montelukast Sodium (Singulair) 10 mg HS 04/13/20 21:00 04/14/20 22:41 10 MG Multivitamins (Thera M Plus) 1 tab DAILY 04/14/20 09:00 04/14/20 08:18 1 TAB Nitroglycerin (Nitrostat) 0.4 mg PRN Q5MIN PRN 04/13/20 10:15 Non-Formulary Medication (Albuterol Sulfate (Albuterol Sulfate Conc Neb Soln)) 2.5 mg [id number] 04/13/20 13:00 UNV Non-Formulary Medication (Turmeric/ Turmeric Root Extract (Turmeric 500 mg Capsule)) 1 cap BID 04/13/20 21:00 UNV Polyethylene Glycol (miraLAX PACKET) 17 gm DAILY 04/14/20 09:00 04/14/20 08:18 17 GM Prednisone (Prednisone) 10 mg DAILY 04/14/20 09:00 04/14/20 08:17 10 MG Simvastatin (Zocor) 20 mg HS 04/13/20 21:00 04/14/20 22:41 20 MG Sodium Chloride 1,000 ml @ 75 mls/hr [id number] 04/13/20 10:30 04/14/20 13:40 75 MLS/HR Labs: Lab Laboratory Tests Test 04/15/20 03:30 White Blood Count 5.0 x10^3/uL (4.0-11.0) Red Blood Count 2.87 x10^6/uL (4.30-5.70) Hemoglobin 8.8 g/dL (13.0-17.5) Hematocrit 26.3 % (39.0-53.0) Mean Corpuscular Volume 92 fL (79-100) Mean Corpuscular Hemoglobin 31 pg (25-35) Mean Corpuscular Hemoglobin Concent 33 g/dL (31-37) Red Cell Distribution Width 15.3 % (11.5-14.5) Platelet Count 133 x10^3/uL (140-400) Neutrophils (%) (Auto) 63 % (31-73) Lymphocytes (%) (Auto) 22 % (24-48) Monocytes (%) (Auto) 9 % (0-9) Eosinophils (%) (Auto) 5 % (0-3) Basophils (%) (Auto) 1 % (0-3) Neutrophils # (Auto) 3.2 x10^3/uL (1.8-7.7) Lymphocytes # (Auto) 1.1 x10^3/uL (1.0-4.8) Monocytes # (Auto) 0.5 x10^3/uL (0.0-1.1) Eosinophils # (Auto) 0.3 x10^3/uL (0.0-0.7) Basophils # (Auto) 0.0 x10^3/uL (0.0-0.2) Sodium Level 145 mmol/L (136-145) Potassium Level 3.9 mmol/L (3.5-5.1) Chloride Level 112 mmol/L (98-107) Carbon Dioxide Level 24 mmol/L (21-32) Anion Gap 9 (6-14) Blood Urea Nitrogen 35 mg/dL (8-26) Creatinine 1.7 mg/dL (0.7-1.3) Estimated GFR (Cockcroft-Gault) 38.4 Glucose Level 103 mg/dL (70-99) Calcium Level 8.2 mg/dL (8.5-10.1) Objective: Assessment: 1. Generalized weakness. 2. Bacteremia, 2/4 bottles present on admission GPC. 3. Acute kidney injury on chronic kidney disease. 4. Fever. 5. Severe chronic obstructive pulmonary disease. 6. History of COVID-19 infection, treated at [facility] 6 weeks ago. 7. Coronary artery disease. 8. Physical deconditioning. 9. Diabetes mellitus 2. The patient is on chronic prednisone. 10. Dysuria could be from BPH, ua negative Plan: Plan of Care Continue daptomycin. Follow-up GPC in blood culture DC ceftriaxone start doxycycline UA negative Follow up labs and cultures. Continue supportive care. COVID-19 reported negative Discussed with RN. AMBER CARRASQUILLO MD Apr 15, 2020 08:51
[2020-04-15] MEDS: FERROUS SULFATE 325 MG TABLET. PO SCH ×2 (09:40→16:36)
[2020-04-15] MEDS: CYANOCOBALAMIN (VITAMIN B-12) 1,000 MCG TABLET. PO SCH (09:40)
[2020-04-15] MEDS: predniSONE 10 MG TABLET PO SCH (09:40)
[2020-04-15] MEDS: CETIRIZINE HCL 10 MG TABLET. PO SCH (09:40)
[2020-04-15] MEDS: CARVEDILOL 3.125 MG TABLET. PO SCH ×2 (09:40→16:36)
[2020-04-15] MEDS: ASPIRIN ENTERIC COATED 81 MG TABLET.DR. PO SCH (09:40)
[2020-04-15] MEDS: MULTIVITAMIN with MINERAL TABLET. PO SCH (09:40)
[2020-04-15] MEDS: LACTOBACILLUS RHAMNOSUS GG 1 CAPSULE. PO SCH ×2 (09:40→20:55)
[2020-04-15] MEDS: hydrALAZINE 25 MG TABLET PO SCH ×2 (09:41→20:55)
[2020-04-15] MEDS: POLYETHYLENE GLYCOL 3350 17 GM PACKET. PO SCH (09:41)
[2020-04-15] MEDS: FLUTICASONE 50MCG/NASAL SPRAY 16GM BOTTLE. NS SCH (09:44)
[2020-04-15] MEDS: DICLOFENAC SODIUM 1% TOPICAL GEL 100GM TUBE. TP SCH ×2 (09:46→20:54)
[2020-04-15] MEDS: IV NORMAL SALINE 1000ML BAG 1,000 ML IV SCH ×2 (10:30→15:50)
[2020-04-15 11:00] VITALS: BP 129/59
--- NOTE | 2020-04-15 11:27 | CONS ---
DATE OF CONSULTATION: LOCATION: He is in room 670. ATTENDING PHYSICIAN: Dr. Lopez. REASON FOR CONSULTATION: The patient was seen at the request of Dr. Lopez for rehab evaluation. HISTORY OF PRESENT ILLNESS: This is an 84-year-old right-handed male known to me. The patient was admitted on 04/13/2020, feeling weak. He could not get up and walk and started falling. He was seen in the Emergency Room, noted with fever of 100 degrees Fahrenheit. Chest x-ray was negative. CT scan of the brain was negative for any acute lesion. The patient was noted with WBC count of 6900, hemoglobin 10.3, platelet count 145, polys 79; creatinine 2.4, higher than his baseline; BUN 40, sodium 143, potassium 4, procalcitonin 0.43. The patient since admission also got positive blood cultures and he is being treated with IV antibiotics. The patient complains of constipation. He also admits some tremors of his hands. The patient is being followed by Physical Therapy and Occupational Therapy. They want him to go to [facility] when medically stable. He was tested negative for COVID and influenza type A and B. Urine, negative for leukocyte esterase, wbc's 1.4. The patient denies any significant pain other than from his ingrown toenails of his big toes. The patient also with history of severe chronic obstructive pulmonary disease, recurrent bronchitis, anemia. He was treated at the [facility] about 6 weeks ago with COVID-19 infection and subsequently went [facility], then [facility] where he usually gets up and walks behind his 's wheelchair. His about 5 years ago. He is on chronic steroid treatment, currently, prednisone 5 mg per day, also with known hypertension, chronic kidney disease stage 3, benign prostatic hypertrophy. Baseline creatinine 1.6, coronary artery disease, status post stenting in 2011, C. diff colitis in 2012, myocardial infarction, DVT in 2011, small-bowel obstruction in 2011, coronary artery disease for which he had 2 stents placed at in 2011, carotid artery disease, gastroesophageal reflux disease, hemorrhoids, lumbar spinal stenosis, macular degeneration in left eye, osteoarthritis, Staph bacteremia that was a contaminant during his admission in 2018, status post L5- S1 decompression and microdiskectomy and right L4-L5 decompression, partial colectomy, appendectomy, tonsillectomy, hemorrhoidectomy. ALLERGIES: KNOWN ALLERGIC TO CLARITHROMYCIN THAT CAUSES RASH. PLAVIX CAUSES A RASH. CODEINE, CYCLOBENZAPRINE CAUSE ITCHING, LISINOPRIL CAUSES NAUSEA. PRASUGREL CAUSES NAUSEA, SULFA, TIZANIDINE, ITCHING. FAMILY HISTORY: Coronary artery disease with father. Mother had coronary artery disease too. He is an ex-smoker. PHYSICAL EXAMINATION: The patient on physical examination today revealed an elderly male. He is alert, oriented to time, place, person and circumstance and follows commands appropriately, moves all 4 extremities voluntarily where he had 4+/5 grade muscle strength. Deep tendon reflexes are decreased overall with absent ankle jerks and he had equal perception of touch and pinprick sensation bilaterally. He had bruised skin and abrasion over the distal part of left leg anteriorly from old injury. He had a Band-Aid dressing to his big toes. The patient had crepitus on range of motion of his knee joints without any obvious knee joint effusion. I have not tested his transfers or ambulation skills at this time, but with Physical Therapy yesterday actually on 04/13/2020, he transferred with contact guard assistance, sit to stand with a roller walker with cues for upper extremity placement and walker with minimum assistance and contact guard assistance for about 15 feet in his room with a roller walker, slow carly. Oxygen saturation 93% when walking on short distance on room air. Physical Therapy and Occupational Therapy recommended him going to [facility] for a short period when medically stable. ASSESSMENT: An elderly male with deconditioned state, positive bacteremia, 2/4 bottles present, acute kidney injury on chronic kidney disease, fever, chronic obstructive pulmonary disease, severe recent COVID-19 infection treated at [facility] 6 weeks ago, coronary artery disease, diabetes mellitus with peripheral neuropathy. The patient is on chronic prednisone for his chronic obstructive pulmonary disease, constipation; ingrown toenails, big toes; febrile illness, treated. RECOMMENDATIONS: Agree with the plan for Physical Therapy and Occupational Therapy to get him up as tolerated and agree with the plan for Jail Care Unit when medically stable. Dr. Lopez, I appreciate asking me to participate in the care of this interesting patient. I will be glad to follow him with you as needed for rehabilitation. ARI PORTILLO MD DR: RHETT/lory JOB#: [id number] / [id number]
--- NOTE | 2020-04-15 11:46 | PDOC ---
PROGRESS NOTES Date of Service: DATE: 04/15/20 TIME: 11:44 Subjective Subjective feels better Objective Objective Vital Signs Date Time Temp Pulse Resp B/P (MAP) Pulse Ox O2 Delivery O2 Flow Rate FiO2 04/15/20 09:41 94 110/54 04/15/20 07:38 100 Room Air 04/15/20 07:00 96.3 20 96.3 Intake and Output 04/15/20 07:00 Intake Total 660 ml Output Total 1050 ml Balance -390 ml Intake Oral 660 ml Output Urine Total 1050 ml # Bowel Movements 1 Physical Exam Abdomen: Soft Heart: Regular rate, Normal S1, Normal S2 Extremities: No clubbing General: Oriented X3 HEENT: Atraumatic MUSCULOSKELETAL: No joint tenderness, No deformity, No swelling Neuro: Normal speech Psych/Mental Status: Mental status NL Skin: No breakdown Diagnosis Problem List Problems Medical Problems: (1) Person under investigation for COVID-19 Status: Acute Assessment Assessment Problems Medical Problems: (1) Person under investigation for COVID-19 Status: Acute IMPRESSION: 1. Fever, positive blood c/s 2. Weakness with recurrent falls. 3. Acute renal failure with chronic kidney disease 3. His baseline creatinine is 1.6, now it is 2.4. 4. Recurrent falls. 5. Physical deconditioning. 6. Chronic obstructive pulmonary disease. 7. Coronary artery disease. 8. Carotid artery disease. 9. Osteoarthritis. 10. History of L3 compression fracture. 11. Anemia. 12. Hypertension. 13. History of diabetes mellitus type 2. 14. Anxiety. PLAN: covid -neg positive blood c/s 2 sets iv daptomycin+po doxycycline cr improving with fluids ,1.5 today d/c iv fluids after the bag is completed cbc mormal. pt/ot/rehab consult Plan Plan of Care Problems Medical Problems: (1) Person under investigation for COVID-19 Status: Acute Comment Review of Relevant I have reviewed the following items tawnya (where applicable) has been applied. Labs Laboratory Tests Test 04/15/20 03:30 White Blood Count 5.0 x10^3/uL (4.0-11.0) Red Blood Count 2.87 x10^6/uL (4.30-5.70) Hemoglobin 8.8 g/dL (13.0-17.5) Hematocrit 26.3 % (39.0-53.0) Mean Corpuscular Volume 92 fL (79-100) Mean Corpuscular Hemoglobin 31 pg (25-35) Mean Corpuscular Hemoglobin Concent 33 g/dL (31-37) Red Cell Distribution Width 15.3 % (11.5-14.5) Platelet Count 133 x10^3/uL (140-400) Neutrophils (%) (Auto) 63 % (31-73) Lymphocytes (%) (Auto) 22 % (24-48) Monocytes (%) (Auto) 9 % (0-9) Eosinophils (%) (Auto) 5 % (0-3) Basophils (%) (Auto) 1 % (0-3) Neutrophils # (Auto) 3.2 x10^3/uL (1.8-7.7) Lymphocytes # (Auto) 1.1 x10^3/uL (1.0-4.8) Monocytes # (Auto) 0.5 x10^3/uL (0.0-1.1) Eosinophils # (Auto) 0.3 x10^3/uL (0.0-0.7) Basophils # (Auto) 0.0 x10^3/uL (0.0-0.2) Sodium Level 145 mmol/L (136-145) Potassium Level 3.9 mmol/L (3.5-5.1) Chloride Level 112 mmol/L (98-107) Carbon Dioxide Level 24 mmol/L (21-32) Anion Gap 9 (6-14) Blood Urea Nitrogen 35 mg/dL (8-26) Creatinine 1.7 mg/dL (0.7-1.3) Estimated GFR (Cockcroft-Gault) 38.4 Glucose Level 103 mg/dL (70-99) Calcium Level 8.2 mg/dL (8.5-10.1) Microbiology 04/13/20 Blood Culture - Preliminary, Resulted NO GROWTH AFTER 1 DAY Medications Current Medications Alprazolam (Xanax) 0.25 mg PRN Q8HRS PRN PO ANXIETY / AGITATION; Start 04/15/20 at 11:15 Doxycycline Hyclate (Vibra-Tab) 100 mg BID PO ; Start 04/15/20 at 21:00 Lactobacillus Rhamnosus (Culturelle) 1 cap BID PO Last administered on 04/15/20at 09:40; Start 04/14/20 at 21:00 Vitals/I & O Vital Sign - Last 24 Hours 04/14/20 04/14/20 04/14/20 04/14/20 15:00 17:31 19:30 20:00 Temp 97.1 96.7 97.1 96.7 Pulse 66 66 96 Resp B/P (MAP) 137/70 (92) 137/70 127/60 (82) Pulse Ox 96 98 O2 Delivery Room Air Room Air Room Air 04/14/20 04/14/20 04/14/20 04/14/20 22:41 22:42 22:43 23:00 Temp 96.9 96.9 Pulse 66 66 101 Resp B/P (MAP) 137/70 137/70 142/68 (92) Pulse Ox 98 O2 Delivery Room Air Room Air 04/14/20 04/15/20 04/15/20 04/15/20 23:43 02:45 07:00 07:38 Temp 97.1 96.3 97.1 96.3 Pulse 98 94 Resp 20 B/P (MAP) 134/65 (88) 110/54 (72) Pulse Ox 98 96 100 O2 Delivery Room Air Room Air Room Air 04/15/20 04/15/20 09:40 09:41 Pulse 94 94 B/P (MAP) 110/54 110/54 Intake and Output 04/14/20 04/14/20 04/15/20 15:00 23:00 07:00 Intake Total 440 ml 100 ml 120 ml Output Total 450 ml 600 ml Balance -10 ml 100 ml -480 ml Justifications for Admission Other Justification BELEN IVORY MD Apr 15, 2020 11:46
[2020-04-15] MEDS: DAPTOmycin (GENERIC) IVPB 450 MG in IV NORMAL SALINE 50ML 50 ML IV SCH (12:17)
[2020-04-15 15:00] VITALS: BP 141/64
[2020-04-15] MEDS: ALPRAZolam 0.25 MG TABLET PO PRN (16:35)
[2020-04-15 19:00] VITALS: BP 125/69
[2020-04-15] MEDS: DOXAZOSIN MESYLATE 4 MG TABLET. PO SCH (20:55)
[2020-04-15] MEDS: SIMVASTATIN 20 MG TABLET PO SCH (20:55)
[2020-04-15] MEDS: HYDROcodone/APAP 7.5/325MG 1 TAB TABLET PO PRN (20:55)
[2020-04-15] MEDS: DOXYCYCLINE HYCLATE 100 MG TABLET PO SCH (20:55)
[2020-04-15] MEDS: MIRTAZAPINE 7.5 MG TABLET. PO SCH (20:55)
[2020-04-15] MEDS: MONTELUKAST SODIUM 10 MG TABLET. PO SCH (20:55)
--- NOTE | 2020-04-15 22:00 | NUR ---
Patient in and out of confusion. Pulled out IV and refusing to wear O2 Sat monitor.
[2020-04-16 03:00] VITALS: BP 137/70
[2020-04-16] MEDS: ALBUTEROL SULFATE 2.5 MG/3 ML NEBU. NEB SCH ×4 (06:14→20:57)
[2020-04-16 07:00] VITALS: BP 126/64
--- NOTE | 2020-04-16 08:17 | PDOC ---
Infectious Disease Note Subjective: Subjective pt says feels better Vital Signs: Vital Signs Vital Signs Date Time Temp Pulse Resp B/P (MAP) Pulse Ox O2 Delivery O2 Flow Rate FiO2 04/16/20 06:14 98 Room Air 04/16/20 03:00 97.0 18 137/70 (92) 97.0 04/15/20 20:55 61 Physical Exam: PHYSICAL EXAM GENERAL: Alert, awake, hard of hearing male, sitting in chair, in no acute distress, appears comfortable. HEENT: Normocephalic, atraumatic, anicteric. NECK: Supple, no JVD. LUNGS: Clear bilaterally. No wheezing. HEART: S1, S2, no murmurs. ABDOMEN: Soft, nontender, nondistended. EXTREMITIES: No edema, no cyanosis. Left first toe ingrown toenail site healing well DERMATOLOGIC: Warm, dry. No generalized rash. NEUROLOGIC: Alert and oriented x 3. Generalized weakness. PSYCHIATRIC: Cooperative. Medications: Inpatient Meds: Current Medications Medications (Trade) Dose Ordered Sig/Juhi Start Time Stop Time Status Last Admin Dose Admin Acetaminophen (Tylenol) 650 mg PRN Q6HRS PRN 04/13/20 10:15 Acetaminophen/ Hydrocodone Bitart (Lortab 7.5/325) 1 tab PRN Q6HRS PRN 04/13/20 10:15 04/15/20 20:55 1 TAB Albuterol Sulfate (Ventolin Neb Soln) 2.5 mg RTQID 04/13/20 12:00 04/16/20 06:14 2.5 MG Albuterol/ Ipratropium (Duoneb) 3 ml 1X ONCE 04/13/20 06:00 04/13/20 06:01 DC 04/13/20 09:22 3 ML Alprazolam (Xanax) 0.25 mg PRN Q8HRS PRN 04/15/20 11:15 04/15/20 16:35 0.25 MG Aspirin (Ecotrin) 81 mg DAILY 04/13/20 11:00 04/15/20 09:40 81 MG Carvedilol (Coreg) 3.125 mg BIDWMEALS 04/13/20 18:00 04/15/20 16:36 3.125 MG Ceftriaxone Sodium (Rocephin) 2 gm Q24H 04/14/20 11:00 04/15/20 09:41 DC 04/14/20 11:04 2 GM Cetirizine HCl (ZyrTEC) 10 mg DAILY 04/14/20 09:00 04/15/20 09:40 10 MG Cyanocobalamin (Vitamin B-12) 1,000 mcg DAILY 04/14/20 09:00 04/15/20 09:40 1,000 MCG Daptomycin 450 mg/ Sodium Chloride 50 ml @ 100 mls/hr Q24H 04/14/20 11:00 04/15/20 12:17 100 MLS/HR Diclofenac Sodium (Voltaren) 1 naif BID 04/13/20 11:00 04/15/20 20:54 1 NAIF Doxazosin Mesylate (Cardura) 8 mg HS 04/13/20 21:00 04/15/20 20:55 8 MG Doxycycline Hyclate (Vibra-Tab) 100 mg BID 04/15/20 21:00 04/15/20 20:55 100 MG Ferrous Sulfate (Feosol) 325 mg BIDWMEALS 04/13/20 17:00 04/15/20 16:36 325 MG Fluticasone Propionate (Flonase) 2 spray DAILY 04/13/20 11:00 04/15/20 09:44 2 SPRAY Glycerin/ Hypromellose/ Polyethylene (Artificial Tears) 1 drop PRN Q15MIN PRN 04/14/20 11:15 04/14/20 16:44 1 DROP Hydralazine HCl (Apresoline) 25 mg BID 04/13/20 11:00 04/15/20 20:55 25 MG Lactobacillus Rhamnosus (Culturelle) 1 cap BID 04/14/20 21:00 04/15/20 20:55 1 CAP Mirtazapine (Remeron) 7.5 mg HS 04/13/20 21:00 04/15/20 20:55 7.5 MG Montelukast Sodium (Singulair) 10 mg HS 04/13/20 21:00 04/15/20 20:55 10 MG Multivitamins (Thera M Plus) 1 tab DAILY 04/14/20 09:00 04/15/20 09:40 1 TAB Nitroglycerin (Nitrostat) 0.4 mg PRN Q5MIN PRN 04/13/20 10:15 Non-Formulary Medication (Albuterol Sulfate (Albuterol Sulfate Conc Neb Soln)) 2.5 mg [id number] 04/13/20 13:00 UNV Non-Formulary Medication (Turmeric/ Turmeric Root Extract (Turmeric 500 mg Capsule)) 1 cap BID 04/13/20 21:00 UNV Polyethylene Glycol (miraLAX PACKET) 17 gm DAILY 04/14/20 09:00 04/15/20 09:41 17 GM Prednisone (Prednisone) 10 mg DAILY 04/14/20 09:00 04/15/20 09:40 10 MG Simvastatin (Zocor) 20 mg HS 04/13/20 21:00 04/15/20 20:55 20 MG Sodium Chloride 1,000 ml @ 75 mls/hr [id number] 04/13/20 10:30 04/15/20 15:59 DC 04/15/20 10:30 75 MLS/HR Objective: Assessment: 1. Generalized weakness. 2. Coag neg staph Bacteremia, 2/4 bottles present on admission ,likely contaminant 3. Acute kidney injury on chronic kidney disease. 4. Fever. 5. Severe chronic obstructive pulmonary disease. 6. History of COVID-19 infection, treated at [facility] 6 weeks ago. 7. Coronary artery disease. 8. Physical deconditioning. 9. Diabetes mellitus 2. The patient is on chronic prednisone. 10. Dysuria could be from BPH, ua negative Plan: Plan of Care cont doxycycline UA negative Dc Daptomycin repeat bc neg Follow up labs and cultures. Continue supportive care. Discussed with DAISHA. AMBER CARRASQUILLO MD Apr 16, 2020 08:17
[2020-04-16] MEDS: POLYETHYLENE GLYCOL 3350 17 GM PACKET. PO SCH ×2 (09:00→10:19)
[2020-04-16] MEDS: FERROUS SULFATE 325 MG TABLET. PO SCH ×2 (10:11→16:55)
[2020-04-16] MEDS: MULTIVITAMIN with MINERAL TABLET. PO SCH (10:11)
[2020-04-16] MEDS: CETIRIZINE HCL 10 MG TABLET. PO SCH (10:11)
[2020-04-16] MEDS: DOXYCYCLINE HYCLATE 100 MG TABLET PO SCH ×2 (10:11→21:01)
[2020-04-16] MEDS: hydrALAZINE 25 MG TABLET PO SCH ×2 (10:11→21:02)
[2020-04-16] MEDS: CARVEDILOL 3.125 MG TABLET. PO SCH ×2 (10:12→16:55)
[2020-04-16] MEDS: CYANOCOBALAMIN (VITAMIN B-12) 1,000 MCG TABLET. PO SCH (10:12)
[2020-04-16] MEDS: predniSONE 10 MG TABLET PO SCH (10:12)
[2020-04-16] MEDS: ASPIRIN ENTERIC COATED 81 MG TABLET.DR. PO SCH (10:12)
[2020-04-16] MEDS: DICLOFENAC SODIUM 1% TOPICAL GEL 100GM TUBE. TP SCH ×2 (10:19→21:03)
[2020-04-16] MEDS: FLUTICASONE 50MCG/NASAL SPRAY 16GM BOTTLE. NS SCH (10:19)
[2020-04-16] MEDS: LACTOBACILLUS RHAMNOSUS GG 1 CAPSULE. PO SCH ×2 (10:19→21:01)
[2020-04-16] MEDS: ALPRAZolam 0.25 MG TABLET PO PRN ×2 (10:51→21:01)
[2020-04-16 11:00] VITALS: BP 112/58
--- NOTE | 2020-04-16 11:27 | PDOC ---
PROGRESS NOTES Date of Service: DATE: 04/16/20 TIME: 11:25 Subjective Subjective feels good Objective Objective Vital Signs Date Time Temp Pulse Resp B/P (MAP) Pulse Ox O2 Delivery O2 Flow Rate FiO2 04/16/20 10:22 99 Room Air 04/16/20 10:12 67 126/64 04/16/20 07:00 96.4 18 96.4 Intake and Output 04/16/20 07:00 Intake Total 120 ml Output Total 550 ml Balance -430 ml Intake Oral 120 ml Output Urine Total 550 ml Physical Exam Abdomen: Soft Heart: Regular rate, Normal S1, Normal S2 Extremities: No clubbing General: Oriented X3 HEENT: Atraumatic MUSCULOSKELETAL: No joint tenderness, No deformity, No swelling Neuro: Normal speech Psych/Mental Status: Mental status NL Skin: No breakdown Diagnosis Problem List Problems Medical Problems: (1) Person under investigation for COVID-19 Status: Acute Assessment Assessment Problems Medical Problems: (1) Person under investigation for COVID-19 Status: Acute IMPRESSION: 1. positive blood c/s, staph Hominis,? contamination 2. Weakness with recurrent falls. 3. Acute renal failure with chronic kidney disease 3. His baseline creatinine is 1.6, now it is 2.4. 4. Recurrent falls. 5. Physical deconditioning. 6. Chronic obstructive pulmonary disease. 7. Coronary artery disease. 8. Carotid artery disease. 9. Osteoarthritis. 10. History of L3 compression fracture. 11. Anemia. 12. Hypertension. 13. History of diabetes mellitus type 2. 14. Anxiety. PLAN: [facility] screen covid -neg positive blood c/s 2 sets, staph hominis? contamination on po doxycycline cr improving with fluids ,1.6 today d/ibrahima iv fluids . cbc mormal. pt/ot/rehab consult Plan Plan of Care Problems Medical Problems: (1) Person under investigation for COVID-19 Status: Acute Comment Review of Relevant I have reviewed the following items tawnya (where applicable) has been applied. Labs Microbiology 04/13/20 Blood Culture - Preliminary, Resulted NO GROWTH AFTER 2 DAYS Medications Current Medications Doxycycline Hyclate (Vibra-Tab) 100 mg BID PO Last administered on 04/16/20at 10:11; Start 04/15/20 at 21:00 Vitals/I & O Vital Sign - Last 24 Hours 04/15/20 04/15/20 04/15/202/21 11:49 15:00 15:48 16:36 Temp 98.0 98.0 Pulse 61 61 Resp 20 B/P (MAP) 141/64 (89) 141/64 Pulse Ox 99 98 96 O2 Delivery Room Air Room Air Room Air 04/15/20 04/15/20 04/15/20 04/15/20 19:00 20:20 20:55 20:55 Temp 97.5 97.5 Pulse 72 61 Resp 18 B/P (MAP) 125/69 (87) 141/64 Pulse Ox 97 96 O2 Delivery Room Air Room Air Room Air 04/15/20 04/15/20 04/15/20 04/16/20 20:55 20:58 21:55 03:00 Temp 97.0 97.0 Pulse 61 Resp 18 B/P (MAP) 141/64 137/70 (92) Pulse Ox 98 98 95 O2 Delivery Room Air Room Air Room Air 04/16/20 04/16/20 04/16/20 04/16/20 06:14 07:00 10:11 10:12 Temp 96.4 96.4 Pulse 67 67 67 Resp 18 B/P (MAP) 126/64 (84) 126/64 126/64 Pulse Ox 98 98 O2 Delivery Room Air Room Air 04/16/20 10:22 Pulse Ox 99 O2 Delivery Room Air Intake and Output 04/15/20 04/15/20 04/16/20 15:00 23:00 07:00 Intake Total 120 ml Output Total 350 ml 200 ml Balance -350 ml -200 ml 120 ml Justifications for Admission Other Justification BELEN IVORY MD Apr 16, 2020 11:27
[2020-04-16 15:00] VITALS: BP 117/63
[2020-04-16 19:00] VITALS: BP 135/65
[2020-04-16] MEDS: DOXAZOSIN MESYLATE 4 MG TABLET. PO SCH (21:00)
[2020-04-16] MEDS: HYDROcodone/APAP 7.5/325MG 1 TAB TABLET PO PRN (21:01)
[2020-04-16] MEDS: MIRTAZAPINE 7.5 MG TABLET. PO SCH (21:01)
[2020-04-16] MEDS: SIMVASTATIN 20 MG TABLET PO SCH (21:02)
[2020-04-16] MEDS: MONTELUKAST SODIUM 10 MG TABLET. PO SCH (21:02)
[2020-04-17 03:00] VITALS: BP 141/59
[2020-04-17] MEDS: ALBUTEROL SULFATE 2.5 MG/3 ML NEBU. NEB SCH ×4 (07:22→20:44)
[2020-04-17 07:53] VITALS: BP 135/72
--- NOTE | 2020-04-17 08:33 | PDOC ---
PROGRESS NOTES Date of Service DATE: 04/17/20 TIME: 08:31 Subjective Subjective No new complaints. Objective Objective Vital Signs Date Time Temp Pulse Resp B/P (MAP) Pulse Ox O2 Delivery O2 Flow Rate FiO2 04/17/20 07:53 97.1 92 20 135/72 (93) 97 Room Air 97.1 Intake and Output 04/17/20 07:00 Intake Total 1130 ml Balance 1130 ml Intake Oral 1130 ml # Voids 1 Physical Exam Physical Exam He is comfortable in bed with head end of bed propped up and he did walk with roller walker per 250' with physical therapy over the weekend. Assessment Assessment Problems Medical Problems: (1) Person under investigation for COVID-19 Status: Acute Plan Plan of Care To continue present physical and occupational therapy follow up as tolerated and to SNF or home with home health follow up when medically stable. Comment Review of Relevant I have reviewed the following items tawnya (where applicable) has been applied. Labs Microbiology 04/13/20 Blood Culture - Preliminary, Resulted NO GROWTH AFTER 3 DAYS Medications Current Medications Albuterol/ Ipratropium (Duoneb) 3 ml 1X ONCE NEB Last administered on 04/13/20at 09:22; Start 04/13/20 at 06:00; Stop 04/13/20 at 06:01; Status DC Acetaminophen (Tylenol) 650 mg PRN Q6HRS PRN PO MILD PAIN 1-3; Start 04/13/20 at 10:15 Albuterol Sulfate (Ventolin Neb Soln) 2.5 mg RTQID NEB Last administered on 04/17/20at 07:22; Start 04/13/20 at 12:00 Aspirin (Ecotrin) 81 mg DAILY PO Last administered on 04/16/20at 10:12; Start 04/13/20 at 11:00 Carvedilol (Coreg) 3.125 mg BID PO Last administered on 04/13/20at 12:37; Start 04/13/20 at 11:00; Stop 04/13/20 at 17:58; Status DC Cyanocobalamin (Vitamin B-12) 1,000 mcg DAILY PO Last administered on 04/16/20at 10:12; Start 04/14/20 at 09:00 Diclofenac Sodium (Voltaren) 1 roz BID TP Last administered on 04/16/20at 21:03; Start 04/13/20 at 11:00 Ferrous Sulfate (Feosol) 325 mg BIDWMEALS PO Last administered on 04/16/20 16:55; Start 04/13/20 at 17:00 Fluticasone Propionate (Flonase) 2 spray DAILY NS Last administered on 04/16/20 10:19; Start 04/13/20 at 11:00 Hydralazine HCl (Apresoline) 25 mg BID PO Last administered on 04/16/20 21:02; Start 04/13/20 at 11:00 Acetaminophen/ Hydrocodone Bitart (Lortab 7.5/325) 1 tab PRN Q6HRS PRN PO MODERATE - SEVERE PAIN Last administered on 04/16/20 21:01; Start 04/13/20 at 10:15 Mirtazapine (Remeron) 7.5 mg HS PO Last administered on 04/16/20 21:01; Start 04/13/20 at 21:00 Montelukast Sodium (Singulair) 10 mg HS PO Last administered on 04/16/20 21:02; Start 04/13/20 at 21:00 Nitroglycerin (Nitrostat) 0.4 mg PRN Q5MIN PRN SL CHEST PAIN; Start 04/13/20 at 10:15 Polyethylene Glycol (miraLAX PACKET) 17 gm DAILY PO Last administered on 04/15/20 09:41; Start 04/14/20 at 09:00 Simvastatin (Zocor) 20 mg HS PO Last administered on 04/16/20 21:02; Start 04/13/20 at 21:00 Non-Formulary Medication (Albuterol Sulfate (Albuterol Sulfate Conc Neb Soln)) 2.5 mg [id number] IH ; Start 04/13/20 at 13:00; Status UNV Doxazosin Mesylate (Cardura) 8 mg HS PO Last administered on 04/16/20 21:00; Start 04/13/20 at 21:00 Cetirizine HCl (ZyrTEC) 10 mg DAILY PO Last administered on 04/16/20 10:11; Start 04/14/20 at 09:00 Multivitamins (Thera M Plus) 1 tab DAILY PO Last administered on 04/16/20 10:11; Start 04/14/20 at 09:00 Non-Formulary Medication (Turmeric/ Turmeric Root Extract (Turmeric 500 mg Capsule)) 1 cap BID PO ; Start 04/13/20 at 21:00; Status UNV Prednisone (Prednisone) 10 mg DAILY PO Last administered on 04/13/20at 12:38; Start 04/13/20 at 11:00; Stop 04/13/20 at 17:58; Status DC Sodium Chloride 1,000 ml @ 75 mls/hr [id number] IV Last administered on 04/15/20at 10:30; Start 04/13/20 at 10:30; Stop 04/15/20 at 15:59; Status DC Carvedilol (Coreg) 3.125 mg BIDWMEALS PO Last administered on 04/16/20at 16:55; Start 04/13/20 at 18:00 Prednisone (Prednisone) 10 mg DAILY PO Last administered on 04/16/20at 10:12; Start 04/14/20 at 09:00 Daptomycin 450 mg/ Sodium Chloride 50 ml @ 100 mls/hr Q24H IV Last administered on 04/15/20at 12:17; Start 04/14/20 at 11:00; Stop 04/16/20 at 08:55; Status DC Ceftriaxone Sodium (Rocephin) 2 gm Q24H IVP Last administered on 04/14/20at 11:04; Start 04/14/20 at 11:00; Stop 04/15/20 at 09:41; Status DC Glycerin/ Hypromellose/ Polyethylene (Artificial Tears) 1 drop PRN Q15MIN PRN OU DRY EYE Last administered on 04/14/20at 16:44; Start 04/14/20 at 11:15 Lactobacillus Rhamnosus (Culturelle) 1 cap BID PO Last administered on 04/16/20 21:01; Start 04/14/20 at 21:00 Doxycycline Hyclate (Vibra-Tab) 100 mg BID PO Last administered on 04/16/20 21:01; Start 04/15/20 at 21:00 Alprazolam (Xanax) 0.25 mg PRN Q8HRS PRN PO ANXIETY / AGITATION Last administered on 04/16/20 21:01; Start 04/15/20 at 11:15 Active Scripts Active Feosol (Ferrous Sulfate) 325 Mg Tablet 325 Mg PO BIDWMEALS 30 Days Acyclovir 400 Mg Tablet 1 Tab PO BID Mupirocin Cream (Mupirocin) 15 Gm Cream..g. 1 Roz TP TID 7 Days Polyethylene Glycol 3350 17 Gm Powd.pack 17 Gm PO DAILY 30 Days Hydrocodone-Apap 7.5-325 (Hydrocodone Bit/Acetaminophen) 1 Tab Tablet 1 Tab PO PRN Q6HRS PRN 7 Days Proair Hfa (Albuterol Sulfate) 8.5 Gm Hfa.aer.ad 2.5 Mg NEB RTQID Tylenol (Acetaminophen) 325 Mg Tablet 650 Mg PO PRN Q6HRS PRN 30 Days Voltaren (Diclofenac Sodium) 100 Gm Gel..gram. 1 Roz TP BID 30 Days Vitamin B-12 (Cyanocobalamin (Vitamin B-12)) 1,000 Mcg Tablet 1,000 Mcg PO DAILY Reported Prednisone 20 Mg Tablet 0.5 Tab PO DAILY Turmeric 500 mg Capsule (Turmeric/Turmeric Root Extract) 1 Each Capsule 1 Cap PO BID 30 Days Fluticasone Propionate Nasal [place] (Fluticasone Propionate) 16 Gm [place].susp 2 [place] NS DAILY Aspir-Low (Aspirin) 81 Mg Tablet.dr 1 Tab PO DAILY Doxazosin Mesylate 8 Mg Tablet 1 Tab PO HS Omeprazole 40 Mg Capsule.dr 1 Cap PO DAILY C-1000 (Ascorbic Acid) 1,000 Mg Tablet.er 1,000 Mg PO DAILY Nitrostat (Nitroglycerin) 0.4 Mg Tab.subl 0.4 Mg SL PRN Q5MIN PRN Calcium 500-Vit D3 600 Tablet (Calcium Carbonate/Vitamin D3) 1 Each Tablet 1 Each PO DAILY Singulair Tablet (Montelukast Sodium) 10 Mg Tablet 10 Mg PO HS Centrum Silver Tablet (Multivits-Min/Fa/Lycopene/Lut) 1 Each Tablet 1 Each PO DAILY Carvedilol (Carvedilol) 3.125 Mg Tablet 1 Tab PO BID Hydralazine Hcl 25 Mg Tablet 1 Tab PO BID Mirtazapine 7.5 Mg Tablet 7.5 Mg PO HS Simvastatin 20 Mg Tablet 20 Mg PO HS Symbicort 160-4.5 Mcg Inhaler (Budesonide/Formoterol Fumarate) 10.2 Gm Hfa.aer.ad 2 Inhaler IH BID Albuterol Sulfate Conc Neb Soln (Albuterol Sulfate) 2.5 Mg/0.5 Ml Vial.neb 2.5 Mg [id number] Vitals/I & O Vital Sign - Last 24 Hours 04/16/20 04/16/20 04/16/20 04/16/20 10:11 10:12 10:22 11:00 Temp 97.5 97.5 Pulse 67 67 67 Resp 18 B/P (MAP) 126/64 126/64 112/58 (76) Pulse Ox 99 100 O2 Delivery Room Air Room Air 04/16/20 04/16/20 04/16/20 04/16/20 15:00 16:55 19:00 20:15 Temp 97.6 96.6 97.6 96.6 Pulse 86 86 85 Resp 18 18 B/P (MAP) 117/63 (81) 117/63 135/65 (88) Pulse Ox 97 100 O2 Delivery Room Air Room Air Room Air 04/16/20 04/16/20 04/16/20 04/16/20 21:00 21:00 21:01 21:02 Pulse 86 86 B/P (MAP) 117/63 117/63 Pulse Ox 97 97 O2 Delivery Room Air Room Air 04/16/20 04/16/20 04/17/20 04/17/20 22:01 23:00 03:00 07:23 Pulse 70 Resp 18 B/P (MAP) 141/59 (86) Pulse Ox 97 98 98 O2 Delivery Room Air Room Air Room Air Room Air 04/17/20 07:53 Temp 97.1 97.1 Pulse 92 Resp 20 B/P (MAP) 135/72 (93) Pulse Ox 97 O2 Delivery Room Air Intake and Output 04/16/20 04/16/20 04/17/20 15:00 23:00 07:00 Intake Total 400 ml 250 ml 480 ml Balance 400 ml 250 ml 480 ml Justifications for Admission Other Justification ARI PORTILLO MD Apr 17, 2020 08:33
[2020-04-17] MEDS ORDERED: LACT1CAP19 PO (09:22)
[2020-04-17] MEDS ORDERED: DOXY100T PO (09:22)
--- NOTE | 2020-04-17 09:57 | PDOC3 ---
IM DISCHARGE SUMMARY Date of Admission Date of Admission Date of Admission: Apr 13, 2020 at 10:19 Date of Discharge Date of Discharge April 18, 2020 Primary Diagnosis Primary Diagnosis 1. Fever, etiology not clear. 2. Weakness with recurrent falls. 3. Acute renal failure with chronic kidney disease 3. Due to vasomotor nephropathy. His baseline creatinine is 1.6, now it is 2.4. 4. Recurrent falls. 5. Physical deconditioning. 6. Chronic obstructive pulmonary disease. 7. Coronary artery disease. 8. Carotid artery disease. 9. Osteoarthritis. 10. History of L3 compression fracture. 11. Anemia. 12. Hypertension. 13. History of diabetes mellitus type 2. 14. Anxiety 15. Blood cultures 2 out of 4 positive for staph hominis. Likely contaminant. Consults Consults Philippe Bass MD; Darrius Dye MD Brief hospital course Brief hospital course This 84-year-old male who is well known to me started getting very weak yesterday evening and he could not get up and walk and started falling. Because of the weakness, the patient came to the Emergency Room. In the Emergency Room, the patient was evaluated. He was noted to have fever of 100 degrees Fahrenheit. Chest x-ray was negative. Flu screen was negative. Urinalysis was negative. However, he remained extremely weak. His creatinine is 2.4, which is higher than his baseline; BUN is 40; sodium 143; potassium 4. Procalcitonin level is 0.43. Influenza A and B screens are negative. WBC count is 6.9, hemoglobin 10.3, platelet count is 145,000, polys 79. Because of the fever and severe weakness, the patient was admitted for further evaluation and management. However, initially was admitted to the hospitalist and later on this morning, I was notified. For more details regarding the past history, family history, social history, surgical history and other details, please refer to History and Physical. 1. Fever. Workup so far is negative. I will order blood cultures x 2. Blood cultures 2 out of 4 were positive for staph hominis. This is likely a contaminant. COVID-19 test is negative[address] Consult Dr. Dye for Infectious Disease evaluation and management. Tylenol as needed. Flu screen is negative. Initial blood cultures 2 out of 4 were positive for Staphylococcus hominis. This is likely contaminant. he was initially given IV daptomycin. Continue doxycycline for 5 more days. Follow-up blood culture was negative. 2. Acute renal failure with chronic kidney disease 3. Start IV normal saline. . Because of the patient's history of congestive heart failure, will be cautiously replacing IV fluids, resume diet. 3. Osteoarthritis. Continue hydrocodone, turmeric and Voltaren gel and Tylenol as needed. 4. Physical deconditioning and recurrent falls. Consult Dr. Bass for rehab evaluation and management. Start PT/OT. Patient is improving but remains extremely weak. He has difficulty getting out of bed. He is agreeable to go to group home unit for further management. Medications Medications reviewed and reconciled for discharge. Allergy Allergies Coded Allergies Type Severity Reaction Last Updated Verified Sulfa (Sulfonamide Antibiotics) Allergy Severe 02/24/20 Yes clopidogrel Allergy Intermediate 02/24/20 Yes valsartan Allergy Intermediate 02/24/20 Yes warfarin Allergy Intermediate 02/24/20 Yes Follow up in 5 days. DISPOSITION: [facility] facility Comments Discharge Management - 35 minutes. For other details please refer to discharge instructions Justicifation of Admission Dx: Justifications for Admission: Justification of Admission Dx: Comment: (Fever, acute renal failure and physical deconditioning.) Sepsis: Infection MARCELLUS FIERRO MD Apr 17, 2020 09:57
--- NOTE | 2020-04-17 10:00 | SNU/HH DC ---
DISCHARGE ORDERS DISCHARGE INFORMATION: FINAL DIAGNOSIS Problems Medical Problems: (1) Person under investigation for COVID-19 Status: Acute CONDITION ON DISCHARGE: Stable HALF-WAY: SNF STAY <30 DAYS: Yes POST DISCHARGE ORDERS: ACTIVITY ORDERS: Activity as tolerated (With walker and PT OT) WEIGHT BEARING STATUS: As tolerated DIET AFTER DISCHARGE: Cardiac OTHER ORDERS: Fall precautions CHECKS AFTER DISCHARGE: CHECKS AFTER DISCHARGE: Check blood press - daily, Check your Temp as needed, Weigh Yourself Daily FOLLOW-UP: PHYSICIAN FOLLOW-UP: Dr. Marcellus Fierro in 5 days after discharge LAB ORDERS FOR FOLLOW-UP: CBC,CMP in AM and once a week TREATMENT/EQUIPMENT ORDERS: ADAPTIVE EQUIPMENT NEEDED: None, Walker RESPIRATORY EQUIPMENT NEEDED: Nebulizer Physical Therapy For: Evalulation/Treatment Occupational Therapy For: Evaluation/Treatment Speech Language Pathology For: Evaluation/Treatment DISCHARGE MEDICATIONS: Home Meds Active Scripts Doxycycline Hyclate (DOXYCYCLINE HYCLATE) 100 Mg Capsule, 1 CAP PO BID for Infection for 4 Days, #8 CAP Prov:MARCELLUS FIERRO MD 04/19/20 Lactobacillus Rhamnosus Gg (CULTURELLE) 1 Each Cap.sprink, 1 CAP PO BID for antibiotic use for 14 Days, #28 CAP Prov:MARCELLUS FIERRO MD 04/17/20 Ferrous Sulfate (FEOSOL) 325 Mg Tablet, 325 MG PO BIDWMEALS for anemia for 30 Days, #60 TAB Prov:MARCELLUS FIERRO MD 07/15/19 Acyclovir (ACYCLOVIR) 400 Mg Tablet, 1 TAB PO BID for herpes simplex, #10 TAB 3 Refills Prov:MARCELLUS FIERRO MD 07/15/19 Mupirocin Calcium (MUPIROCIN CREAM) 15 Gm Cream..g., 1 SONAM TP TID for skin cuts for 7 Days, #1 EACH Prov:MARCELLUS FIERRO MD 01/28/19 Polyethylene Glycol 3350 (POLYETHYLENE GLYCOL 3350) 17 Gm Powd.pack, 17 GM PO DAILY for constipation for 30 Days, #30 PKT Prov:MARCELLUS FIERRO MD 01/28/19 Hydrocodone Bit/Acetaminophen (HYDROCODONE-APAP 7.5-325 ) 1 Tab Tablet, 1 TAB PO PRN Q6HRS PRN for MODERATE - SEVERE PAIN for 7 Days, #28 TAB Prov:MARCELLUS FIERRO MD 01/28/19 Albuterol Sulfate (Proair Hfa) 8.5 Gm Hfa.aer.ad, 2.5 MG NEB RTQID for COPD, #1 INHALER Prov:MARCELLUS FIERRO MD 01/21/19 Acetaminophen (TYLENOL) 325 Mg Tablet, 650 MG PO PRN Q6HRS PRN for MILD PAIN for 30 Days, #120 TAB Prov:MARCELLUS FIERRO MD 05/11/18 Diclofenac Sodium (VOLTAREN) 100 Gm Gel..gram., 1 SONAM TP BID for arthritis for 30 Days, #100 GM 1 Refill Prov:MARCELLUS FIERRO MD 05/11/18 Cyanocobalamin (Vitamin B-12) (VITAMIN B-12) 1,000 Mcg Tablet, 1000 MCG PO DAILY, #30 TAB Prov:MARCELLUS FIERRO MD 03/24/14 Reported Medications Prednisone (PREDNISONE) 20 Mg Tablet, 0.5 TAB PO DAILY for unknown, #5 TAB 04/13/20 Turmeric/Turmeric Root Extract (Turmeric 500 mg Capsule) 1 Each Capsule, 1 CAP PO BID for mms cramping for 30 Days, #60 CAP 0 Refills 07/13/19 Fluticasone Propionate (FLUTICASONE PROPIONATE NASAL SPRAY) 16 Gm [place].susp, 2 SPRAY NS DAILY for ALLERGIES, #1 INHALER 11 Refills 01/17/19 Aspirin (ASPIR-LOW) 81 Mg Tablet.dr, 1 TAB PO DAILY for CIRCULATION, #30 TAB 3 Refills 01/17/19 Doxazosin Mesylate (DOXAZOSIN MESYLATE) 8 Mg Tablet, 1 TAB PO HS for PROSTATE, #30 TAB 5 Refills 01/17/19 Omeprazole (OMEPRAZOLE) 40 Mg Capsule.dr, 1 CAP PO DAILY for GERD, #30 CAP 3 Refills 01/17/19 Ascorbic Acid (C-1000) 1,000 Mg Tablet.er, 1000 MG PO DAILY for SUPPLEMENT, TAB.SR 09/09/18 Nitroglycerin (NITROSTAT) 0.4 Mg Tab.subl, 0.4 MG SL PRN Q5MIN PRN for CHEST PAIN, BOTTLE 09/09/18 Calcium Carbonate/Vitamin D3 (Calcium 500-Vit D3 600 Tablet) 1 Each Tablet, 1 EACH PO DAILY for SUPPLEMENT, TAB 09/09/18 Montelukast Sodium (SINGULAIR TABLET ) 10 Mg Tablet, 10 MG PO HS for FOR ASTHM A, #30 TAB 0 Refills 03/20/14 Multivits-Min/Fa/Lycopene/Lut (CENTRUM SILVER TABLET) 1 Each Tablet, 1 EACH PO DAILY 03/20/14 Carvedilol (CARVEDILOL ) 3.125 Mg Tablet, 1 TAB PO BID, #60 TAB 5 Refills 03/20/14 Hydralazine Hcl (HYDRALAZINE HCL) 25 Mg Tablet, 1 TAB PO BID, #60 TAB 5 Refills 03/20/14 Mirtazapine (MIRTAZAPINE) 7.5 Mg Tablet, 7.5 MG PO HS 08/03/13 Simvastatin (SIMVASTATIN) 20 Mg Tablet, 20 MG PO HS 08/03/13 Budesonide/Formoterol Fumarate (SYMBICORT 160-4.5 MCG INHALER) 10.2 Gm Hfa.aer.ad, 2 INHALER IH BID 08/03/13 Albuterol Sulfate (ALBUTEROL SULFATE CONC NEB SOLN) 2.5 Mg/0.5 Ml Vial.neb, 2.5 MG IH [id number] 08/03/13 MARCELLUS FIERRO MD Apr 17, 2020 10:00
[2020-04-17] MEDS: ASPIRIN ENTERIC COATED 81 MG TABLET.DR. PO SCH (10:27)
[2020-04-17] MEDS: LACTOBACILLUS RHAMNOSUS GG 1 CAPSULE. PO SCH ×2 (10:27→22:00)
[2020-04-17] MEDS: CYANOCOBALAMIN (VITAMIN B-12) 1,000 MCG TABLET. PO SCH (10:27)
[2020-04-17] MEDS: MULTIVITAMIN with MINERAL TABLET. PO SCH (10:27)
[2020-04-17] MEDS: hydrALAZINE 25 MG TABLET PO SCH ×2 (10:28→22:01)
[2020-04-17] MEDS: POLYETHYLENE GLYCOL 3350 17 GM PACKET. PO SCH (10:28)
[2020-04-17] MEDS: DOXYCYCLINE HYCLATE 100 MG TABLET PO SCH ×2 (10:29→22:00)
[2020-04-17] MEDS: CETIRIZINE HCL 10 MG TABLET. PO SCH (10:29)
[2020-04-17] MEDS: FLUTICASONE 50MCG/NASAL SPRAY 16GM BOTTLE. NS SCH (10:29)
[2020-04-17] MEDS: FERROUS SULFATE 325 MG TABLET. PO SCH ×2 (10:29→17:38)
[2020-04-17] MEDS: predniSONE 10 MG TABLET PO SCH (10:29)
[2020-04-17] MEDS: CARVEDILOL 3.125 MG TABLET. PO SCH ×2 (10:29→17:41)
[2020-04-17] MEDS: DICLOFENAC SODIUM 1% TOPICAL GEL 100GM TUBE. TP SCH ×2 (10:30→22:01)
[2020-04-17] MEDS: ALPRAZolam 0.25 MG TABLET PO PRN ×2 (10:46→22:03)
[2020-04-17 11:59] VITALS: BP 143/70
--- NOTE | 2020-04-17 12:08 | PDOC ---
Infectious Disease Note Subjective Subjective pt says feels better ROS ROS no n/v/d/ Vital Sign Vital Signs Vital Signs Date Time Temp Pulse Resp B/P (MAP) Pulse Ox O2 Delivery O2 Flow Rate FiO2 04/17/20 11:12 100 Room Air 04/17/20 10:29 92 135/72 04/17/20 07:53 97.1 20 97.1 Physical Exam PHYSICAL EXAM GENERAL: Alert, awake, hard of hearing male, sitting in chair, in no acute distress, appears comfortable. HEENT: Normocephalic, atraumatic, anicteric. NECK: Supple, no JVD. LUNGS: Clear bilaterally. No wheezing. HEART: S1, S2, no murmurs. ABDOMEN: Soft, nontender, nondistended. EXTREMITIES: No edema, no cyanosis. Left first toe ingrown toenail site healing well DERMATOLOGIC: Warm, dry. No generalized rash. NEUROLOGIC: Alert and oriented x 3. Generalized weakness. PSYCHIATRIC: Cooperative. Labs Micro Microbiology 04/13/20 Blood Culture - Preliminary, Resulted NO GROWTH AFTER 3 DAYS Objective Assessment 1. Generalized weakness. 2. Coag neg staph Bacteremia, 2/4 bottles present on admission ,likely contaminant 3. Acute kidney injury on chronic kidney disease. 4. Fever. 5. Severe chronic obstructive pulmonary disease. 6. History of COVID-19 infection, treated at [facility] 6 weeks ago. 7. Coronary artery disease. 8. Physical deconditioning. 9. Diabetes mellitus 2. The patient is on chronic prednisone. 10. Dysuria could be from BPH, ua negative Plan Plan of Care cont doxycycline UA negative Dc Daptomycin repeat bc neg Follow up labs and cultures. Continue supportive care. Discussed with DAISHA. LEYLA CARRASQUILLO MD Apr 17, 2020 12:08
--- NOTE | 2020-04-17 15:51 | NUR ---
KRISHAN following for discharge planning. Spoke with RN and reviewed chart. KRISHAN consulted to assist pt with SNU placement. Spoke with FAYE Dunn ([phone]) and their first choice in provider was [facility]. KRISHAN confirmed with Eileen that [facility] remains on an admissions hold so Mona would like a referral sent to [facility]. Patient choice of vendor form completed. Referral and discharge orders phoned and faxed to [facility]. KRISHAN did call [facility] ([phone]) to confirm dates of last SNU admission (11/08/2019 to 12/07/2019). [facility] submitted for insurance authorization and BCBS plan is inactive. KRISHAN called Mona ronda and Kristina to get updated insurance information for 2020. KRISHAN following. Addendum: 04/17/20 at 1605 by ROCK NICKERSON Updated Insurance information from ID # [id number] Group # [id number]
[2020-04-17 15:56] VITALS: BP 137/71
[2020-04-17 19:30] VITALS: BP 120/66
[2020-04-17] MEDS: MIRTAZAPINE 7.5 MG TABLET. PO SCH (22:00)
[2020-04-17] MEDS: SIMVASTATIN 20 MG TABLET PO SCH (22:00)
[2020-04-17] MEDS: DOXAZOSIN MESYLATE 4 MG TABLET. PO SCH (22:00)
[2020-04-17] MEDS: MONTELUKAST SODIUM 10 MG TABLET. PO SCH (22:00)
[2020-04-17] MEDS: HYDROcodone/APAP 7.5/325MG 1 TAB TABLET PO PRN (22:03)
[2020-04-17 23:18] VITALS: BP 115/60
[2020-04-18 03:50] VITALS: BP 129/61
[2020-04-18 07:00] VITALS: BP 137/69
--- NOTE | 2020-04-18 08:42 | PDOC ---
IM PROGRESS NOTES- Subjective Subjective No complaints of pain . Dyspnea, cough and congestion are improving. Objective Vitals/I&O Vital Signs Date Time Temp Pulse Resp B/P (MAP) Pulse Ox O2 Delivery O2 Flow Rate FiO2 04/18/20 07:00 96.0 60 18 137/69 (91) 99 Room Air 96.0 I & O 04/17/20 04/17/20 04/18/20 15:00 23:00 07:00 Intake Total 420 ml 300 ml 100 ml Output Total 450 ml 400 ml Balance -30 ml 300 ml -300 ml Physical Exam Physical Exam General appearance - alert,ill appearing, and in no distress and oriented to person, place, and time Mental Status - alert, oriented to person, place, and time, affect appropriate to mood Head - normal Chest -decreased breath sounds at base Heart - S1 and S2 normal Abdomen - soft, nontender Neurological - alert and oriented Musculoskeletal -generalized weakness Extremities - no pedal edema Assessment Assessment Problems Medical Problems: (1) Person under investigation for COVID-19 Status: Acute IMPRESSION: 1. positive blood c/s, staph Hominis,? contamination 2. Weakness with recurrent falls. 3. Acute renal failure with chronic kidney disease 3. His baseline creatinine is 1.6, now it is 2.4. 4. Recurrent falls. 5. Physical deconditioning. 6. Chronic obstructive pulmonary disease. 7. Coronary artery disease. 8. Carotid artery disease. 9. Osteoarthritis. 10. History of L3 compression fracture. 11. Anemia. 12. Hypertension. 13. History of diabetes mellitus type 2. 14. Anxiety. PLAN: Physical deconditioning-continue PT/OT discharge to retirement unit when accepted. Blood cultures 2 out of 4 staph hominis. Likely contaminant .repeat blood culture negative.Off daptomycin. On Doxycycline. Slowly improving. Continue doxycycline. Discharge management 35 minutes. Please see details in discharge summary. Plan Plan For more details regarding further plans, please refer to the orders. Justifications for Admission Other Justification MARCELLUS FIERRO MD Apr 18, 2020 08:42
[2020-04-18] MEDS: ALBUTEROL SULFATE 2.5 MG/3 ML NEBU. NEB SCH ×4 (08:45→20:00)
--- NOTE | 2020-04-18 09:15 | PDOC ---
PROGRESS NOTES Date of Service DATE: 04/18/20 TIME: 09:13 Subjective Subjective No new complaints. Objective Objective Vital Signs Date Time Temp Pulse Resp B/P (MAP) Pulse Ox O2 Delivery O2 Flow Rate FiO2 04/18/20 08:47 94 Room Air 04/18/20 07:00 96.0 60 18 137/69 (91) 96.0 Intake and Output 04/18/20 07:00 Intake Total 820 ml Output Total 850 ml Balance -30 ml Intake Oral 820 ml Output Urine Total 850 ml Physical Exam Physical Exam He is alert,sitting at edge of bed and eating breakfast and he is walking with roller walker under supervision for 250' with therapy. Assessment Assessment Problems Medical Problems: (1) Person under investigation for COVID-19 Status: Acute Plan Plan of Care Agree with plans for SNF transfer. Comment Review of Relevant I have reviewed the following items tawnya (where applicable) has been applied. Labs Microbiology 04/13/20 Blood Culture - Preliminary, Resulted NO GROWTH AFTER 4 DAYS Medications Current Medications Albuterol/ Ipratropium (Duoneb) 3 ml 1X ONCE NEB Last administered on 04/13/20at 09:22; Start 04/13/20 at 06:00; Stop 04/13/20 at 06:01; Status DC Acetaminophen (Tylenol) 650 mg PRN Q6HRS PRN PO MILD PAIN 1-3; Start 04/13/20 at 10:15 Albuterol Sulfate (Ventolin Neb Soln) 2.5 mg RTQID NEB Last administered on 04/18/20at 08:45; Start 04/13/20 at 12:00 Aspirin (Ecotrin) 81 mg DAILY PO Last administered on 04/17/20at 10:27; Start 04/13/20 at 11:00 Carvedilol (Coreg) 3.125 mg BID PO Last administered on 04/13/20at 12:37; Start 04/13/20 at 11:00; Stop 04/13/20 at 17:58; Status DC Cyanocobalamin (Vitamin B-12) 1,000 mcg DAILY PO Last administered on 04/17/20at 10:27; Start 04/14/20 at 09:00 Diclofenac Sodium (Voltaren) 1 roz BID TP Last administered on 04/17/20at 22:01; Start 04/13/20 at 11:00 Ferrous Sulfate (Feosol) 325 mg BIDWMEALS PO Last administered on 04/17/20 17:38; Start 04/13/20 at 17:00 Fluticasone Propionate (Flonase) 2 spray DAILY NS Last administered on 04/17/20 10:29; Start 04/13/20 at 11:00 Hydralazine HCl (Apresoline) 25 mg BID PO Last administered on 04/17/20 22:01; Start 04/13/20 at 11:00 Acetaminophen/ Hydrocodone Bitart (Lortab 7.5/325) 1 tab PRN Q6HRS PRN PO MODERATE - SEVERE PAIN Last administered on 04/17/20 22:03; Start 04/13/20 at 10:15 Mirtazapine (Remeron) 7.5 mg HS PO Last administered on 04/17/20 22:00; Start 04/13/20 at 21:00 Montelukast Sodium (Singulair) 10 mg HS PO Last administered on 04/17/20 22:00; Start 04/13/20 at 21:00 Nitroglycerin (Nitrostat) 0.4 mg PRN Q5MIN PRN SL CHEST PAIN; Start 04/13/20 at 10:15 Polyethylene Glycol (miraLAX PACKET) 17 gm DAILY PO Last administered on 04/17/20 10:28; Start 04/14/20 at 09:00 Simvastatin (Zocor) 20 mg HS PO Last administered on 04/17/20 22:00; Start 04/13/20 at 21:00 Non-Formulary Medication (Albuterol Sulfate (Albuterol Sulfate Conc Neb Soln)) 2.5 mg [id number] IH ; Start 04/13/20 at 13:00; Status UNV Doxazosin Mesylate (Cardura) 8 mg HS PO Last administered on 04/17/20 22:00; Start 04/13/20 at 21:00 Cetirizine HCl (ZyrTEC) 10 mg DAILY PO Last administered on 04/17/20 10:29; Start 04/14/20 at 09:00 Multivitamins (Thera M Plus) 1 tab DAILY PO Last administered on 04/17/20 10:27; Start 04/14/20 at 09:00 Non-Formulary Medication (Turmeric/ Turmeric Root Extract (Turmeric 500 mg Capsule)) 1 cap BID PO ; Start 04/13/20 at 21:00; Status UNV Prednisone (Prednisone) 10 mg DAILY PO Last administered on 04/13/20at 12:38; Start 04/13/20 at 11:00; Stop 04/13/20 at 17:58; Status DC Sodium Chloride 1,000 ml @ 75 mls/hr [id number] IV Last administered on 04/15/20at 10:30; Start 04/13/20 at 10:30; Stop 04/15/20 at 15:59; Status DC Carvedilol (Coreg) 3.125 mg BIDWMEALS PO Last administered on 04/17/20at 17:41; Start 04/13/20 at 18:00 Prednisone (Prednisone) 10 mg DAILY PO Last administered on 04/17/20at 10:29; Start 04/14/20 at 09:00 Daptomycin 450 mg/ Sodium Chloride 50 ml @ 100 mls/hr Q24H IV Last administered on 04/15/20at 12:17; Start 04/14/20 at 11:00; Stop 04/16/20 at 08:55; Status DC Ceftriaxone Sodium (Rocephin) 2 gm Q24H IVP Last administered on 04/14/20at 11:04; Start 04/14/20 at 11:00; Stop 04/15/20 at 09:41; Status DC Glycerin/ Hypromellose/ Polyethylene (Artificial Tears) 1 drop PRN Q15MIN PRN OU DRY EYE Last administered on 04/14/20at 16:44; Start 04/14/20 at 11:15 Lactobacillus Rhamnosus (Culturelle) 1 cap BID PO Last administered on 04/17/20at 22:00; Start 04/14/20 at 21:00 Doxycycline Hyclate (Vibra-Tab) 100 mg BID PO Last administered on 04/17/20 22:00; Start 04/15/20 at 21:00 Alprazolam (Xanax) 0.25 mg PRN Q8HRS PRN PO ANXIETY / AGITATION Last administered on 04/17/20at 22:03; Start 04/15/20 at 11:15 Active Scripts Active Culturelle (Lactobacillus Rhamnosus Gg) 1 Each Cap.sprink 1 Cap PO BID 14 Days Doxycycline Hyclate 100 Mg Tablet 100 Mg PO BID 5 Days Feosol (Ferrous Sulfate) 325 Mg Tablet 325 Mg PO BIDWMEALS 30 Days Acyclovir 400 Mg Tablet 1 Tab PO BID Mupirocin Cream (Mupirocin) 15 Gm Cream..g. 1 Roz TP TID 7 Days Polyethylene Glycol 3350 17 Gm Powd.pack 17 Gm PO DAILY 30 Days Hydrocodone-Apap 7.5-325 (Hydrocodone Bit/Acetaminophen) 1 Tab Tablet 1 Tab PO PRN Q6HRS PRN 7 Days Proair Hfa (Albuterol Sulfate) 8.5 Gm Hfa.aer.ad 2.5 Mg NEB RTQID Tylenol (Acetaminophen) 325 Mg Tablet 650 Mg PO PRN Q6HRS PRN 30 Days Voltaren (Diclofenac Sodium) 100 Gm Gel..gram. 1 Roz TP BID 30 Days Vitamin B-12 (Cyanocobalamin (Vitamin B-12)) 1,000 Mcg Tablet 1,000 Mcg PO DAILY Reported Prednisone 20 Mg Tablet 0.5 Tab PO DAILY Turmeric 500 mg Capsule (Turmeric/Turmeric Root Extract) 1 Each Capsule 1 Cap PO BID 30 Days Fluticasone Propionate Nasal [place] (Fluticasone Propionate) 16 Gm [place].susp 2 S pray NS DAILY Aspir-Low (Aspirin) 81 Mg Tablet.dr 1 Tab PO DAILY Doxazosin Mesylate 8 Mg Tablet 1 Tab PO HS Omeprazole 40 Mg Capsule.dr 1 Cap PO DAILY C-1000 (Ascorbic Acid) 1,000 Mg Tablet.er 1,000 Mg PO DAILY Nitrostat (Nitroglycerin) 0.4 Mg Tab.subl 0.4 Mg SL PRN Q5MIN PRN Calcium 500-Vit D3 600 Tablet (Calcium Carbonate/Vitamin D3) 1 Each Tablet 1 Each PO DAILY Singulair Tablet (Montelukast Sodium) 10 Mg Tablet 10 Mg PO HS Centrum Silver Tablet (Multivits-Min/Fa/Lycopene/Lut) 1 Each Tablet 1 Each PO DAILY Carvedilol (Carvedilol) 3.125 Mg Tablet 1 Tab PO BID Hydralazine Hcl 25 Mg Tablet 1 Tab PO BID Mirtazapine 7.5 Mg Tablet 7.5 Mg PO HS Simvastatin 20 Mg Tablet 20 Mg PO HS Symbicort 160-4.5 Mcg Inhaler (Budesonide/Formoterol Fumarate) 10.2 Gm Hfa.a er.ad 2 Inhaler IH BID Albuterol Sulfate Conc Neb Soln (Albuterol Sulfate) 2.5 Mg/0.5 Ml Vial.neb 2.5 Mg IH [id number] Vitals/I & O Vital Sign - Last 24 Hours 04/17/20 04/17/20 04/17/20 04/17/20 10:28 10:29 11:12 11:59 Temp 97.0 97.0 Pulse 92 92 62 Resp 20 B/P (MAP) 135/72 135/72 143/70 (94) Pulse Ox 100 93 O2 Delivery Room Air Room Air 04/17/20 04/17/20 04/17/20 04/17/20 15:11 15:56 17:41 19:30 Temp 97.3 98.6 97.3 98.6 Pulse 58 58 70 Resp 18 18 B/P (MAP) 137/71 (93) 137/71 120/66 (84) Pulse Ox 97 97 96 O2 Delivery Room Air Room Air Room Air 04/17/20 04/17/20 04/17/20 04/17/20 20:00 20:45 22:00 22:01 B/P (MAP) 120/66 120/66 Pulse Ox 93 O2 Delivery Room Air Room Air 04/17/20 04/17/20 04/17/20 04/18/20 22:03 23:03 23:18 03:50 Temp 97.5 97.7 97.5 97.7 Pulse 56 59 Resp 20 20 B/P (MAP) 115/60 (78) 129/61 (83) Pulse Ox 100 98 100 O2 Delivery Room Air Room Air Room Air Room Air 04/18/20 04/18/20 07:00 08:47 Temp 96.0 96.0 Pulse 60 Resp 18 B/P (MAP) 137/69 (91) Pulse Ox 99 94 O2 Delivery Room Air Room Air Intake and Output 04/17/20 04/17/20 04/18/20 15:00 23:00 07:00 Intake Total 420 ml 300 ml 100 ml Output Total 450 ml 400 ml Balance -30 ml 300 ml -300 ml Justifications for Admission Other Justification ARI PORTILLO MD Apr 18, 2020 09:15
[2020-04-18] MEDS: DICLOFENAC SODIUM 1% TOPICAL GEL 100GM TUBE. TP SCH ×2 (09:52→21:22)
[2020-04-18] MEDS: POLYETHYLENE GLYCOL 3350 17 GM PACKET. PO SCH (09:52)
[2020-04-18] MEDS: predniSONE 10 MG TABLET PO SCH (09:53)
[2020-04-18] MEDS: ASPIRIN ENTERIC COATED 81 MG TABLET.DR. PO SCH (09:53)
[2020-04-18] MEDS: FLUTICASONE 50MCG/NASAL SPRAY 16GM BOTTLE. NS SCH (09:53)
[2020-04-18] MEDS: DOXYCYCLINE HYCLATE 100 MG TABLET PO SCH (09:53)
[2020-04-18] MEDS: CARVEDILOL 3.125 MG TABLET. PO SCH ×2 (09:53→18:17)
[2020-04-18] MEDS: MULTIVITAMIN with MINERAL TABLET. PO SCH (09:53)
[2020-04-18] MEDS: hydrALAZINE 25 MG TABLET PO SCH ×2 (09:54→21:24)
[2020-04-18] MEDS: CETIRIZINE HCL 10 MG TABLET. PO SCH (09:54)
[2020-04-18] MEDS: LACTOBACILLUS RHAMNOSUS GG 1 CAPSULE. PO SCH ×2 (09:54→21:22)
[2020-04-18] MEDS: CYANOCOBALAMIN (VITAMIN B-12) 1,000 MCG TABLET. PO SCH (09:54)
[2020-04-18] MEDS: FERROUS SULFATE 325 MG TABLET. PO SCH ×2 (09:54→18:17)
--- NOTE | 2020-04-18 10:33 | PDOC ---
Infectious Disease Note Subjective Subjective pt says feels better ROS ROS No nausea vomiting diarrhea or fever Vital Sign Vital Signs Vital Signs Date Time Temp Pulse Resp B/P (MAP) Pulse Ox O2 Delivery O2 Flow Rate FiO2 04/18/20 09:54 60 137/69 04/18/20 08:47 94 Room Air 04/18/20 07:00 96.0 18 96.0 Physical Exam PHYSICAL EXAM GENERAL: Alert, awake, hard of hearing male, sitting in chair, in no acute distress, appears comfortable. HEENT: Normocephalic, atraumatic, anicteric. NECK: Supple, no JVD. LUNGS: Clear bilaterally. No wheezing. HEART: S1, S2, no murmurs. ABDOMEN: Soft, nontender, nondistended. EXTREMITIES: No edema, no cyanosis. Left first toe ingrown toenail site healing well DERMATOLOGIC: Warm, dry. No generalized rash. NEUROLOGIC: Alert and oriented x 3. Generalized weakness. PSYCHIATRIC: Cooperative. Labs Micro Microbiology 04/13/20 Blood Culture - Preliminary, Resulted NO GROWTH AFTER 3 DAYS BLOOD CULTURE LC Final Final FINAL ID= [STAPHYLOCOCCUS HOMINIS] Growth of organism in only one of multiple sets; isolation does not necessarily indicate infection. Contact Microbiology Lab if further testing is clinically warranted. FINAL ID= [STREPTOCOCCUS MITIS/ORALIS GRP] Growth of organism in only one of multiple sets; isolation does not necessarily indicate infection. Contact Microbiology Lab if further testing is clinically warranted. STAPHYLOCOCCUS HOMINIS STREPTOCOCCUS MITIS/ORALIS GRP Unless otherwise specified, Testing Performed by: [address] [address] For Inquires, the Physician may contact the Microbiology department at [phone] Objective Assessment 1. Generalized weakness. 2. Coag neg staph Bacteremia, 2/4 bottles present on admission ,likely contaminant 3. Acute kidney injury on chronic kidney disease. 4. Fever. 5. Severe chronic obstructive pulmonary disease. 6. History of COVID-19 infection, treated at [facility] 6 weeks ago. 7. Coronary artery disease. 8. Physical deconditioning. 9. Diabetes mellitus 2. The patient is on chronic prednisone. 10. Dysuria could be from BPH, ua negative Plan Plan of Care Because of the strep mitis/paralysis will change doxy to p.o. Keflex for 7 days UA negative repeat bc neg Follow up labs and cultures. Continue supportive care. Discussed with RN. LEYLA CARRASQUILLO MD Apr 18, 2020 10:33
[2020-04-18 11:00] VITALS: BP 110/56
--- NOTE | 2020-04-18 13:04 | NUR ---
KRISHAN following for discharge planning. Spoke with RN and reviewed chart. Pt to discharge to [facility] today pending insurance approval. Spoke with Cee and [facility] does have a bed. KRISHAN following. Addendum: 04/18/20 at 1730 by ROCK NICKERSON Insurance authorization remains pending per Cee.
[2020-04-18] MEDS: CEPHALEXIN 250 MG CAPSULE. PO SCH ×2 (14:41→21:24)
[2020-04-18 15:00] VITALS: BP 116/63
[2020-04-18 19:53] VITALS: BP 129/66
[2020-04-18] MEDS: DOXAZOSIN MESYLATE 4 MG TABLET. PO SCH (21:23)
[2020-04-18] MEDS: HYDROcodone/APAP 7.5/325MG 1 TAB TABLET PO PRN (21:23)
[2020-04-18] MEDS: ALPRAZolam 0.25 MG TABLET PO PRN (21:23)
[2020-04-18] MEDS: MIRTAZAPINE 7.5 MG TABLET. PO SCH (21:23)
[2020-04-18] MEDS: MONTELUKAST SODIUM 10 MG TABLET. PO SCH (21:24)
[2020-04-18] MEDS: SIMVASTATIN 20 MG TABLET PO SCH (21:26)
[2020-04-18 23:13] VITALS: BP 132/63
[2020-04-19 03:34] VITALS: BP 142/68
[2020-04-19 07:00] VITALS: BP 137/67
[2020-04-19] MEDS: ALBUTEROL SULFATE 2.5 MG/3 ML NEBU. NEB SCH ×4 (08:00→20:54)
--- NOTE | 2020-04-19 09:01 | PDOC ---
IM PROGRESS NOTES- Subjective Subjective No complaints of pain . Dyspnea, cough and congestion are improving. Objective Vitals/I&O Vital Signs Date Time Temp Pulse Resp B/P (MAP) Pulse Ox O2 Delivery O2 Flow Rate FiO2 04/19/20 03:34 98.1 80 16 142/68 (92) 94 Room Air 98.1 I & O 04/18/20 04/18/20 04/19/20 15:00 23:00 07:00 Intake Total 450 ml 300 ml 210 ml Output Total 200 ml 100 ml Balance 250 ml 300 ml 110 ml Physical Exam Physical Exam General appearance - alert,ill appearing, and in no distress and oriented to person, place, and time Mental Status - alert, oriented to person, place, and time, affect appropriate to mood Head - normal Chest -decreased breath sounds at base Heart - S1 and S2 normal Abdomen - soft, nontender Neurological - alert and oriented Musculoskeletal -generalized weakness Extremities - no pedal edema Meds Current Medications Medications (Trade) Dose Ordered Sig/Juhi Route PRN Reason Start Time Stop Time Status Last Admin Dose Admin Cephalexin HCl (Keflex) 500 mg TID PO 04/18/20 14:00 04/18/20 21:24 Assessment Assessment Problems Medical Problems: (1) Person under investigation for COVID-19 Status: Acute IMPRESSION: 1. positive blood c/s, staph Hominis,? contamination 2. Weakness with recurrent falls. 3. Acute renal failure with chronic kidney disease 3. His baseline creatinine is 1.6, now it is 2.4. 4. Recurrent falls. 5. Physical deconditioning. 6. Chronic obstructive pulmonary disease. 7. Coronary artery disease. 8. Carotid artery disease. 9. Osteoarthritis. 10. History of L3 compression fracture. 11. Anemia. 12. Hypertension. 13. History of diabetes mellitus type 2. 14. Anxiety. PLAN: Physical deconditioning-continue PT/OT discharge to snf unit when accepted. Blood cultures 2 out of 4 staph hominis. Likely contaminant .repeat blood culture negative.Off daptomycin. On Doxycycline. Slowly improving. Continue doxycycline. Discharge management 35 minutes. Please see details in discharge summary. Patient wants to resume Ocuvite and acyclovir. Plan Plan For more details regarding further plans, please refer to the orders. Justifications for Admission Other Justification MARCELLUS FIERRO MD Apr 19, 2020 09:01
--- NOTE | 2020-04-19 09:08 | PDOC ---
PROGRESS NOTES Date of Service DATE: 04/19/20 TIME: 09:05 Subjective Subjective No new complaints. Objective Objective Vital Signs Date Time Temp Pulse Resp B/P (MAP) Pulse Ox O2 Delivery O2 Flow Rate FiO2 04/19/20 03:34 98.1 80 16 142/68 (92) 94 Room Air 98.1 Intake and Output 04/19/20 07:00 Intake Total 960 ml Output Total 300 ml Balance 660 ml Intake Oral 960 ml Output Urine Total 300 ml # Voids 1 # Bowel Movements 2 Physical Exam Physical Exam he is alert,sitting in bedside chair and eating breakfast and he is walking with roller walker with therapy. Assessment Assessment Problems Medical Problems: (1) Person under investigation for COVID-19 Status: Acute Plan Plan of Care Waiting for SNF transfer when arrangements are completed. Comment Review of Relevant I have reviewed the following items tawnya (where applicable) has been applied. Labs Microbiology 04/13/20 Blood Culture - Final, Complete NO GROWTH AFTER 5 DAYS Medications Current Medications Albuterol/ Ipratropium (Duoneb) 3 ml 1X ONCE NEB Last administered on 04/13/20at 09:22; Start 04/13/20 at 06:00; Stop 04/13/20 at 06:01; Status DC Acetaminophen (Tylenol) 650 mg PRN Q6HRS PRN PO MILD PAIN 1-3; Start 04/13/20 at 10:15 Albuterol Sulfate (Ventolin Neb Soln) 2.5 mg RTQID NEB Last administered on 04/18/20at 15:57; Start 04/13/20 at 12:00 Aspirin (Ecotrin) 81 mg DAILY PO Last administered on 04/18/20at 09:53; Start 04/13/20 at 11:00 Carvedilol (Coreg) 3.125 mg BID PO Last administered on 04/13/20at 12:37; Start 04/13/20 at 11:00; Stop 04/13/20 at 17:58; Status DC Cyanocobalamin (Vitamin B-12) 1,000 mcg DAILY PO Last administered on 04/18/20at 09:54; Start 04/14/20 at 09:00 Diclofenac Sodium (Voltaren) 1 roz BID TP Last administered on 04/18/20at 21:22; Start 04/13/20 at 11:00 Ferrous Sulfate (Feosol) 325 mg BIDWMEALS PO Last administered on 04/18/20 18:17; Start 04/13/20 at 17:00 Fluticasone Propionate (Flonase) 2 spray DAILY NS Last administered on 04/18/20 09:53; Start 04/13/20 at 11:00 Hydralazine HCl (Apresoline) 25 mg BID PO Last administered on 04/18/20 21:24; Start 04/13/20 at 11:00 Acetaminophen/ Hydrocodone Bitart (Lortab 7.5/325) 1 tab PRN Q6HRS PRN PO MODERATE - SEVERE PAIN Last administered on 04/18/20 21:23; Start 04/13/20 at 10:15 Mirtazapine (Remeron) 7.5 mg HS PO Last administered on 04/18/20 21:23; Start 04/13/20 at 21:00 Montelukast Sodium (Singulair) 10 mg HS PO Last administered on 04/18/20 21:24; Start 04/13/20 at 21:00 Nitroglycerin (Nitrostat) 0.4 mg PRN Q5MIN PRN SL CHEST PAIN; Start 04/13/20 at 10:15 Polyethylene Glycol (miraLAX PACKET) 17 gm DAILY PO Last administered on 04/18/20 09:52; Start 04/14/20 at 09:00 Simvastatin (Zocor) 20 mg HS PO Last administered on 04/18/20 21:26; Start 04/13/20 at 21:00 Non-Formulary Medication (Albuterol Sulfate (Albuterol Sulfate Conc Neb Soln)) 2.5 mg [id number] IH ; Start 04/13/20 at 13:00; Status UNV Doxazosin Mesylate (Cardura) 8 mg HS PO Last administered on 04/18/20 21:23; Start 04/13/20 at 21:00 Cetirizine HCl (ZyrTEC) 10 mg DAILY PO Last administered on 04/18/20 09:54; Start 04/14/20 at 09:00 Multivitamins (Thera M Plus) 1 tab DAILY PO Last administered on 04/18/20 09:53; Start 04/14/20 at 09:00 Non-Formulary Medication (Turmeric/ Turmeric Root Extract (Turmeric 500 mg Capsule)) 1 cap BID PO ; Start 04/13/20 at 21:00; Status UNV Prednisone (Prednisone) 10 mg DAILY PO Last administered on 04/13/20at 12:38; Start 04/13/20 at 11:00; Stop 04/13/20 at 17:58; Status DC Sodium Chloride 1,000 ml @ 75 mls/hr [id number] IV Last administered on 04/15/20at 10:30; Start 04/13/20 at 10:30; Stop 04/15/20 at 15:59; Status DC Carvedilol (Coreg) 3.125 mg BIDWMEALS PO Last administered on 04/18/20at 18:17; Start 04/13/20 at 18:00 Prednisone (Prednisone) 10 mg DAILY PO Last administered on 04/18/20at 09:53; Start 04/14/20 at 09:00 Daptomycin 450 mg/ Sodium Chloride 50 ml @ 100 mls/hr Q24H IV Last administered on 04/15/20at 12:17; Start 04/14/20 at 11:00; Stop 04/16/20 at 08:55; Status DC Ceftriaxone Sodium (Rocephin) 2 gm Q24H IVP Last administered on 04/14/20at 11:04; Start 04/14/20 at 11:00; Stop 04/15/20 at 09:41; Status DC Glycerin/ Hypromellose/ Polyethylene (Artificial Tears) 1 drop PRN Q15MIN PRN OU DRY EYE Last administered on 04/14/20at 16:44; Start 04/14/20 at 11:15 Lactobacillus Rhamnosus (Culturelle) 1 cap BID PO Last administered on 04/18/20at 21:22; Start 04/14/20 at 21:00 Doxycycline Hyclate (Vibra-Tab) 100 mg BID PO Last administered on 04/18/20at 09:53; Start 04/15/20 at 21:00; Stop 04/18/20 at 11:01; Status DC Alprazolam (Xanax) 0.25 mg PRN Q8HRS PRN PO ANXIETY / AGITATION Last administered on 04/18/20at 21:23; Start 04/15/20 at 11:15 Cephalexin HCl (Keflex) 500 mg TID PO Last administered on 04/18/20at 21:24; Start 04/18/20 at 14:00 Active Scripts Active Culturelle (Lactobacillus Rhamnosus Gg) 1 Each Cap.sprink 1 Cap PO BID 14 Days Doxycycline Hyclate 100 Mg Tablet 100 Mg PO BID 5 Days Feosol (Ferrous Sulfate) 325 Mg Tablet 325 Mg PO BIDWMEALS 30 Days Acyclovir 400 Mg Tablet 1 Tab PO BID Mupirocin Cream (Mupirocin) 15 Gm Cream..g. 1 Roz TP TID 7 Days Polyethylene Glycol 3350 17 Gm Powd.pack 17 Gm PO DAILY 30 Days Hydrocodone-Apap 7.5-325 (Hydrocodone Bit/Acetaminophen) 1 Tab Tablet 1 Tab PO PRN Q6HRS PRN 7 Days Proair Hfa (Albuterol Sulfate) 8.5 Gm Hfa.aer.ad 2.5 Mg NEB RTQID Tylenol (Acetaminophen) 325 Mg Tablet 650 Mg PO PRN Q6HRS PRN 30 Days Voltaren (Diclofenac Sodium) 100 Gm Gel..gram. 1 Roz TP BID 30 Days Vitamin B-12 (Cyanocobalamin (Vitamin B-12)) 1,000 Mcg Tablet 1,000 Mcg PO DAILY Reported Prednisone 20 Mg Tablet 0.5 Tab PO DAILY Turmeric 500 mg Capsule (Turmeric/Turmeric Root Extract) 1 Each Capsule 1 Cap PO BID 30 Days Fluticasone Propionate Nasal [place] (Fluticasone Propionate) 16 Gm [place].susp 2 [place] NS DAILY Aspir-Low (Aspirin) 81 Mg Tablet.dr 1 Tab PO DAILY Doxazosin Mesylate 8 Mg Tablet 1 Tab PO HS Omeprazole 40 Mg Capsule.dr 1 Cap PO DAILY C-1000 (Ascorbic Acid) 1,000 Mg Tablet.er 1,000 Mg PO DAILY Nitrostat (Nitroglycerin) 0.4 Mg Tab.subl 0.4 Mg SL PRN Q5MIN PRN Calcium 500-Vit D3 600 Tablet (Calcium Carbonate/Vitamin D3) 1 Each Tablet 1 Each PO DAILY Singulair Tablet (Montelukast Sodium) 10 Mg Tablet 10 Mg PO HS Centrum Silver Tablet (Multivits-Min/Fa/Lycopene/Lut) 1 Each Tablet 1 Each PO DAILY Carvedilol (Carvedilol) 3.125 Mg Tablet 1 Tab PO BID Hydralazine Hcl 25 Mg Tablet 1 Tab PO BID Mirtazapine 7.5 Mg Tablet 7.5 Mg PO HS Simvastatin 20 Mg Tablet 20 Mg PO HS Symbicort 160-4.5 Mcg Inhaler (Budesonide/Formoterol Fumarate) 10.2 Gm Hfa.aer.ad 2 Inhaler IH BID Albuterol Sulfate Conc Neb Soln (Albuterol Sulfate) 2.5 Mg/0.5 Ml Vial.neb 2.5 Mg IH [id number] Vitals/I & O Vital Sign - Last 24 Hours 04/18/20 04/18/20 04/18/20 04/18/20 09:53 09:54 11:00 12:02 Temp 96.6 96.6 Pulse 60 60 77 Resp 18 B/P (MAP) 137/69 137/69 110/56 (74) Pulse Ox 99 O2 Delivery Room Air Room Air 04/18/20 04/18/20 04/18/20 04/18/20 15:00 15:58 18:17 19:53 Temp 97.2 98.0 97.2 98.0 Pulse 102 102 78 Resp 18 18 B/P (MAP) 116/63 (80) 116/63 129/66 (87) Pulse Ox 94 93 96 O2 Delivery Room Air Room Air Room Air 04/18/20 04/18/20 04/18/20 04/18/20 20:00 21:23 21:23 21:24 B/P (MAP) 129/66 129/66 O2 Delivery Room Air Room Air 04/18/20 04/18/20 04/19/20 22:23 23:13 03:34 Temp 97.9 98.1 97.9 98.1 Pulse 58 80 Resp 20 16 B/P (MAP) 132/63 (86) 142/68 (92) Pulse Ox 100 94 O2 Delivery Room Air Room Air Room Air Intake and Output 04/18/20 04/18/20 04/19/20 15:00 23:00 07:00 Intake Total 450 ml 300 ml 210 ml Output Total 200 ml 100 ml Balance 250 ml 300 ml 110 ml Justifications for Admission Other Justification ARI PORTILLO MD Apr 19, 2020 09:08
[2020-04-19] MEDS ORDERED: MULTIVITAMIN I-VITE TABLET. PO SCH (09:30)
[2020-04-19] MEDS ORDERED: DOXY100C2 PO (09:34)
[2020-04-19] MEDS: POLYETHYLENE GLYCOL 3350 17 GM PACKET. PO SCH (09:54)
[2020-04-19] MEDS: FLUTICASONE 50MCG/NASAL SPRAY 16GM BOTTLE. NS SCH (09:55)
[2020-04-19] MEDS: LACTOBACILLUS RHAMNOSUS GG 1 CAPSULE. PO SCH ×2 (09:55→21:03)
[2020-04-19] MEDS: CEPHALEXIN 250 MG CAPSULE. PO SCH ×3 (09:55→21:04)
[2020-04-19] MEDS: ASPIRIN ENTERIC COATED 81 MG TABLET.DR. PO SCH (09:55)
[2020-04-19] MEDS: predniSONE 10 MG TABLET PO SCH (09:55)
[2020-04-19] MEDS: CARVEDILOL 3.125 MG TABLET. PO SCH ×2 (09:55→17:21)
[2020-04-19] MEDS: CETIRIZINE HCL 10 MG TABLET. PO SCH (09:56)
[2020-04-19] MEDS: MULTIVITAMIN with MINERAL TABLET. PO SCH (09:56)
[2020-04-19] MEDS: hydrALAZINE 25 MG TABLET PO SCH ×2 (09:56→21:03)
[2020-04-19] MEDS: FERROUS SULFATE 325 MG TABLET. PO SCH ×2 (09:56→17:21)
[2020-04-19] MEDS: DICLOFENAC SODIUM 1% TOPICAL GEL 100GM TUBE. TP SCH ×2 (09:56→21:00)
[2020-04-19] MEDS: CYANOCOBALAMIN (VITAMIN B-12) 1,000 MCG TABLET. PO SCH (09:56)
[2020-04-19] MEDS: ACYCLOVIR 200 MG CAPSULE. PO SCH ×3 (09:57→21:04)
[2020-04-19] MEDS: MULTIVITAMIN I-VITE TABLET. PO SCH (09:57)
[2020-04-19] MEDS ORDERED: ACYCLOVIR 200 MG CAPSULE. PO SCH (10:00)
--- NOTE | 2020-04-19 10:50 | PDOC ---
Infectious Disease Note Subjective Subjective pt says feels better ROS ROS No nausea vomiting diarrhea Vital Sign Vital Signs Vital Signs Date Time Temp Pulse Resp B/P (MAP) Pulse Ox O2 Delivery O2 Flow Rate FiO2 04/19/20 09:56 76 137/67 04/19/20 07:00 96.8 14 Room Air 96.8 04/19/20 03:34 94 Physical Exam PHYSICAL EXAM GENERAL: Alert, awake, hard of hearing male, sitting in chair, in no acute distress, appears comfortable. HEENT: Normocephalic, atraumatic, anicteric. NECK: Supple, no JVD. LUNGS: Clear bilaterally. No wheezing. HEART: S1, S2, no murmurs. ABDOMEN: Soft, nontender, nondistended. EXTREMITIES: No edema, no cyanosis. Left first toe ingrown toenail site healing well DERMATOLOGIC: Warm, dry. No generalized rash. NEUROLOGIC: Alert and oriented x 3. Generalized weakness. PSYCHIATRIC: Cooperative. Labs Micro Microbiology 04/13/20 Blood Culture - Preliminary, Resulted NO GROWTH AFTER 3 DAYS BLOOD CULTURE LC Final Final FINAL ID= [STAPHYLOCOCCUS HOMINIS] Growth of organism in only one of multiple sets; isolation does not necessarily indicate infection. Contact Microbiology Lab if further testing is clinically warranted. FINAL ID= [STREPTOCOCCUS MITIS/ORALIS GRP] Growth of organism in only one of multiple sets; isolation does not necessarily indicate infection. Contact Microbiology Lab if further testing is clinically warranted. STAPHYLOCOCCUS HOMINIS STREPTOCOCCUS MITIS/ORALIS GRP Unless otherwise specified, Testing Performed by: [address] [address] For Inquires, the Physician may contact the Microbiology department at [phone] Objective Assessment 1. Generalized weakness. 2. Coag neg staph Bacteremia, 2/4 bottles present on admission ,likely contaminant 3. Acute kidney injury on chronic kidney disease. 4. Fever. 5. Severe chronic obstructive pulmonary disease. 6. History of COVID-19 infection, treated at [facility] 6 weeks ago. 7. Coronary artery disease. 8. Physical deconditioning. 9. Diabetes mellitus 2. The patient is on chronic prednisone. 10. Dysuria could be from BPH, ua negative Plan Plan of Care p.o. Keflex for 7 days UA negative repeat bc neg Follow up labs and cultures. Continue supportive care. Discussed with LEYLA MCNALLY MD Apr 19, 2020 10:49
[2020-04-19 11:00] VITALS: BP 110/60
--- NOTE | 2020-04-19 11:18 | NUR ---
KRISHAN following for discharge planning. Spoke with RN and reviewed chart. Phoned and faxed updated clinicals to Haley at [facility]. KRISHAN awaiting insurance authorization for for discharge. KRISHAN following. Addendum: 04/19/20 at 1616 by ROCK NICKERSON Spoke with Haley from [facility] who is holding a bed for this patient but insurance authorization remains pending.
[2020-04-19 15:00] VITALS: BP 115/56
[2020-04-19 19:00] VITALS: BP 121/51
[2020-04-19] MEDS: SIMVASTATIN 20 MG TABLET PO SCH (21:03)
[2020-04-19] MEDS: ALPRAZolam 0.25 MG TABLET PO PRN (21:03)
[2020-04-19] MEDS: DOXAZOSIN MESYLATE 4 MG TABLET. PO SCH (21:03)
[2020-04-19] MEDS: MIRTAZAPINE 7.5 MG TABLET. PO SCH (21:03)
[2020-04-19] MEDS: MONTELUKAST SODIUM 10 MG TABLET. PO SCH (21:03)
[2020-04-19] MEDS: HYDROcodone/APAP 7.5/325MG 1 TAB TABLET PO PRN (21:03)
[2020-04-20 07:00] VITALS: BP 127/63
[2020-04-20] MEDS: CEPHALEXIN 250 MG CAPSULE. PO SCH ×3 (08:06→21:57)
[2020-04-20] MEDS: FLUTICASONE 50MCG/NASAL SPRAY 16GM BOTTLE. NS SCH (08:06)
[2020-04-20] MEDS: LACTOBACILLUS RHAMNOSUS GG 1 CAPSULE. PO SCH ×2 (08:06→21:56)
[2020-04-20] MEDS: ASPIRIN ENTERIC COATED 81 MG TABLET.DR. PO SCH (08:07)
[2020-04-20] MEDS: predniSONE 10 MG TABLET PO SCH (08:07)
[2020-04-20] MEDS: CETIRIZINE HCL 10 MG TABLET. PO SCH (08:07)
[2020-04-20] MEDS: hydrALAZINE 25 MG TABLET PO SCH ×2 (08:07→21:57)
[2020-04-20] MEDS: ACYCLOVIR 200 MG CAPSULE. PO SCH ×3 (08:07→21:55)
[2020-04-20] MEDS: CYANOCOBALAMIN (VITAMIN B-12) 1,000 MCG TABLET. PO SCH (08:07)
[2020-04-20] MEDS: CARVEDILOL 3.125 MG TABLET. PO SCH ×2 (08:08→17:52)
[2020-04-20] MEDS: MULTIVITAMIN with MINERAL TABLET. PO SCH (08:08)
[2020-04-20] MEDS: HYDROcodone/APAP 7.5/325MG 1 TAB TABLET PO PRN ×3 (08:08→21:56)
[2020-04-20] MEDS: FERROUS SULFATE 325 MG TABLET. PO SCH ×2 (08:08→17:51)
[2020-04-20] MEDS: POLYETHYLENE GLYCOL 3350 17 GM PACKET. PO SCH (08:09)
[2020-04-20] MEDS: MULTIVITAMIN I-VITE TABLET. PO SCH (08:12)
[2020-04-20] MEDS: DICLOFENAC SODIUM 1% TOPICAL GEL 100GM TUBE. TP SCH ×2 (08:14→21:00)
--- NOTE | 2020-04-20 08:55 | PDOC ---
PROGRESS NOTES Date of Service DATE: 04/20/20 TIME: 08:54 Subjective Subjective He c/o cough with expectoration. Objective Objective Vital Signs Date Time Temp Pulse Resp B/P (MAP) Pulse Ox O2 Delivery O2 Flow Rate FiO2 04/20/20 08:08 58 127/63 04/20/20 08:08 18 Room Air 04/20/20 07:00 96.6 97 96.6 Intake and Output 04/20/20 07:00 Intake Total 0 ml Balance 0 ml Intake Oral 0 ml # Voids 1 Physical Exam Physical Exam He is getting up with roller walker and seems to be comfortable. Assessment Assessment Problems Medical Problems: (1) Person under investigation for COVID-19 Status: Acute Plan Plan of Care Waiting for SNF transfer. Comment Review of Relevant I have reviewed the following items tawnya (where applicable) has been applied. Labs Microbiology 04/13/20 Blood Culture - Final, Complete NO GROWTH AFTER 5 DAYS Medications Current Medications Albuterol/ Ipratropium (Duoneb) 3 ml 1X ONCE NEB Last administered on 03/16 05/03at 09:22; Start 04/13/20 at 06:00; Stop 04/13/20 at 06:01; Status DC Acetaminophen (Tylenol) 650 mg PRN Q6HRS PRN PO MILD PAIN 1-3; Start 04/13/20 at 10:15 Albuterol Sulfate (Ventolin Neb Soln) 2.5 mg RTQID NEB Last administered on 04/19/20at 20:54; Start 04/13/20 at 12:00 Aspirin (Ecotrin) 81 mg DAILY PO Last administered on 04/20/20at 08:07; Start 04/13/20 at 11:00 Carvedilol (Coreg) 3.125 mg BID PO Last administered on 04/13/20at 12:37; Start 04/13/20 at 11:00; Stop 04/13/20 at 17:58; Status DC Cyanocobalamin (Vitamin B-12) 1,000 mcg DAILY PO Last administered on 04/20/20at 08:07; Start 04/14/20 at 09:00 Diclofenac Sodium (Voltaren) 1 roz BID TP Last administered on 04/20/20at 08:14; Start 04/13/20 at 11:00 Ferrous Sulfate (Feosol) 325 mg BIDWMEALS PO Last administered on 04/20/20 08:08; Start 04/13/20 at 17:00 Fluticasone Propionate (Flonase) 2 spray DAILY NS Last administered on 04/20/20 08:06; Start 04/13/20 at 11:00 Hydralazine HCl (Apresoline) 25 mg BID PO Last administered on 04/20/20 08:07; Start 04/13/20 at 11:00 Acetaminophen/ Hydrocodone Bitart (Lortab 7.5/325) 1 tab PRN Q6HRS PRN PO MODERATE - SEVERE PAIN Last administered on 04/20/20 08:08; Start 04/13/20 at 10:15 Mirtazapine (Remeron) 7.5 mg HS PO Last administered on 04/19/20 21:03; Start 04/13/20 at 21:00 Montelukast Sodium (Singulair) 10 mg HS PO Last administered on 04/19/20 21:03; Start 04/13/20 at 21:00 Nitroglycerin (Nitrostat) 0.4 mg PRN Q5MIN PRN SL CHEST PAIN; Start 04/13/20 at 10:15 Polyethylene Glycol (miraLAX PACKET) 17 gm DAILY PO Last administered on 04/20/20 08:09; Start 04/14/20 at 09:00 Simvastatin (Zocor) 20 mg HS PO Last administered on 04/19/20 21:03; Start 04/13/20 at 21:00 Non-Formulary Medication (Albuterol Sulfate (Albuterol Sulfate Conc Neb Soln)) 2.5 mg [id number] IH ; Start 04/13/20 at 13:00; Status UNV Doxazosin Mesylate (Cardura) 8 mg HS PO Last administered on 04/19/20 21:03; Start 04/13/20 at 21:00 Cetirizine HCl (ZyrTEC) 10 mg DAILY PO Last administered on 04/20/20 08:07; Start 04/14/20 at 09:00 Multivitamins (Thera M Plus) 1 tab DAILY PO Last administered on 04/20/20 08:08; Start 04/14/20 at 09:00 Non-Formulary Medication (Turmeric/ Turmeric Root Extract (Turmeric 500 mg Capsule)) 1 cap BID PO ; Start 04/13/20 at 21:00; Status UNV Prednisone (Prednisone) 10 mg DAILY PO Last administered on 04/13/20at 12:38; Start 04/13/20 at 11:00; Stop 04/13/20 at 17:58; Status DC Sodium Chloride 1,000 ml @ 75 mls/hr [id number] IV Last administered on 04/15/20at 10:30; Start 04/13/20 at 10:30; Stop 04/15/20 at 15:59; Status DC Carvedilol (Coreg) 3.125 mg BIDWMEALS PO Last administered on 04/20/20at 08:08; Start 04/13/20 at 18:00 Prednisone (Prednisone) 10 mg DAILY PO Last administered on 04/20/20at 08:07; Start 04/14/20 at 09:00 Daptomycin 450 mg/ Sodium Chloride 50 ml @ 100 mls/hr Q24H IV Last administered on 04/15/20at 12:17; Start 04/14/20 at 11:00; Stop 04/16/20 at 08:55; Status DC Ceftriaxone Sodium (Rocephin) 2 gm Q24H IVP Last administered on 04/14/20at 11:04; Start 04/14/20 at 11:00; Stop 04/15/20 at 09:41; Status DC Glycerin/ Hypromellose/ Polyethylene (Artificial Tears) 1 drop PRN Q15MIN PRN OU DRY EYE Last administered on 04/14/20at 16:44; Start 04/14/20 at 11:15 Lactobacillus Rhamnosus (Culturelle) 1 cap BID PO Last administered on 04/20/20at 08:06; Start 04/14/20 at 21:00 Doxycycline Hyclate (Vibra-Tab) 100 mg BID PO Last administered on 04/18/20at 09:53; Start 04/15/20 at 21:00; Stop 04/18/20 at 11:01; Status DC Alprazolam (Xanax) 0.25 mg PRN Q8HRS PRN PO ANXIETY / AGITATION Last administered on 04/19/20at 21:03; Start 04/15/20 at 11:15 Cephalexin HCl (Keflex) 500 mg TID PO Last administered on 04/20/20at 08:06; Start 04/18/20 at 14:00 Acyclovir (Zovirax) 400 mg BID PO ; Start 04/19/20 at 10:00; Status Cancel Multivitamins/ Minerals (I-Jordy) 1 tab DAILY PO ; Start 04/19/20 at 09:30; Status Cancel Multivitamins/ Minerals (I-Jordy) 1 tab DAILY PO Last administered on 04/20/20at 08:12; Start 04/19/20 at 10:00 Acyclovir (Zovirax) 400 mg [id number] PO Last administered on 04/20/20at 08:07; Start 04/19/20 at 10:00; Stop 04/24/20 at 09:59 Active Scripts Active Doxycycline Hyclate 100 Mg Capsule 1 Cap PO BID 4 Days Culturelle (Lactobacillus Rhamnosus Gg) 1 Each Cap.sprink 1 Cap PO BID 14 Days Feosol (Ferrous Sulfate) 325 Mg Tablet 325 Mg PO BIDWMEALS 30 Days Acyclovir 400 Mg Tablet 1 Tab PO BID Mupirocin Cream (Mupirocin) 15 Gm Cream..g. 1 Roz TP TID 7 Days Polyethylene Glycol 3350 17 Gm Powd.pack 17 Gm PO DAILY 30 Days Hydrocodone-Apap 7.5-325 (Hydrocodone Bit/Acetaminophen) 1 Tab Tablet 1 Tab PO PRN Q6HRS PRN 7 Days Proair Hfa (Albuterol Sulfate) 8.5 Gm Hfa.aer.ad 2.5 Mg NEB RTQID Tylenol (Acetaminophen) 325 Mg Tablet 650 Mg PO PRN Q6HRS PRN 30 Days Voltaren (Diclofenac Sodium) 100 Gm Gel..gram. 1 Roz TP BID 30 Days Vitamin B-12 (Cyanocobalamin (Vitamin B-12)) 1,000 Mcg Tablet 1,000 Mcg PO DAILY Reported Prednisone 20 Mg Tablet 0.5 Tab PO DAILY Turmeric 500 mg Capsule (Turmeric/Turmeric Root Extract) 1 Each Capsule 1 Cap PO BID 30 Days Fluticasone Propionate Nasal [place] (Fluticasone Propionate) 16 Gm [place].susp 2 [place] NS DAILY Aspir-Low (Aspirin) 81 Mg Tablet. 1 Tab PO DAILY Doxazosin Mesylate 8 Mg Tablet 1 Tab PO HS Omeprazole 40 Mg Capsule.dr 1 Cap PO DAILY C-1000 (Ascorbic Acid) 1,000 Mg Tablet.er 1,000 Mg PO DAILY Nitrostat (Nitroglycerin) 0.4 Mg Tab.subl 0.4 Mg SL PRN Q5MIN PRN Calcium 500-Vit D3 600 Tablet (Calcium Carbonate/Vitamin D3) 1 Each Tablet 1 Each PO DAILY Singulair Tablet (Montelukast Sodium) 10 Mg Tablet 10 Mg PO HS Centrum Silver Tablet (Multivits-Min/Fa/Lycopene/Lut) 1 Each Tablet 1 Each PO DAILY Carvedilol (Carvedilol) 3.125 Mg Tablet 1 Tab PO BID Hydralazine Hcl 25 Mg Tablet 1 Tab PO BID Mirtazapine 7.5 Mg Tablet 7.5 Mg PO HS Simvastatin 20 Mg Tablet 20 Mg PO HS Symbicort 160-4.5 Mcg Inhaler (Budesonide/Formoterol Fumarate) 10.2 Gm Hfa.aer.ad 2 Inhaler IH BID Albuterol Sulfate Conc Neb Soln (Albuterol Sulfate) 2.5 Mg/0.5 Ml Vial.neb 2.5 Mg IH [id number] Vitals/I & O Vital Sign - Last 24 Hours 04/19/20 04/19/20 04/19/20 04/19/20 09:55 09:56 11:00 14:59 Temp 96.4 96.4 Pulse 76 76 78 Resp 14 B/P (MAP) 137/67 137/67 110/60 (77) Pulse Ox 98 100 O2 Delivery Room Air Room Air 04/19/20 04/19/20 04/19/20 04/19/20 15:00 17:21 19:00 20:10 Temp 97.4 97.1 97.4 97.1 Pulse 76 78 77 Resp 14 18 B/P (MAP) 115/56 (75) 110/60 121/51 (74) Pulse Ox 100 98 O2 Delivery Room Air Room Air Room Air 04/19/20 04/19/20 04/19/20 04/19/20 20:56 21:03 21:03 21:03 Pulse 77 77 B/P (MAP) 121/51 121/51 Pulse Ox 98 98 O2 Delivery Room Air Room Air 04/19/20 04/19/20 04/20/20 04/20/20 22:03 23:00 03:00 07:00 Temp 96.6 96.6 Pulse 58 Resp 18 B/P (MAP) 127/63 (84) Pulse Ox 98 98 97 O2 Delivery Room Air Room Air Room Air Room Air 04/20/20 04/20/20 04/20/20 08:07 08:08 08:08 Pulse 58 58 Resp 18 B/P (MAP) 127/63 127/63 O2 Delivery Room Air Intake and Output 04/19/20 04/19/20 04/20/20 15:00 23:00 07:00 Intake Total 0 ml Balance 0 ml Justifications for Admission Other Justification ARI PORTILLO MD Apr 20, 2020 08:55
--- NOTE | 2020-04-20 09:37 | PDOC ---
Infectious Disease Note Subjective Subjective pt says feels better ROS ROS No nausea vomiting diarrhea Vital Sign Vital Signs Vital Signs Date Time Temp Pulse Resp B/P (MAP) Pulse Ox O2 Delivery O2 Flow Rate FiO2 04/20/20 08:08 58 127/63 04/20/20 08:08 18 Room Air 04/20/20 07:00 96.6 97 96.6 Physical Exam PHYSICAL EXAM GENERAL: Alert, awake, hard of hearing male, sitting in chair, in no acute distress, appears comfortable. HEENT: Normocephalic, atraumatic, anicteric. NECK: Supple, no JVD. LUNGS: Clear bilaterally. No wheezing. HEART: S1, S2, no murmurs. ABDOMEN: Soft, nontender, nondistended. EXTREMITIES: No edema, no cyanosis. Left first toe ingrown toenail site healing well DERMATOLOGIC: Warm, dry. No generalized rash. NEUROLOGIC: Alert and oriented x 3. Generalized weakness. PSYCHIATRIC: Cooperative. Labs Micro Microbiology 04/13/20 Blood Culture - Preliminary, Resulted NO GROWTH AFTER 3 DAYS BLOOD CULTURE LC Final Final FINAL ID= [STAPHYLOCOCCUS HOMINIS] Growth of organism in only one of multiple sets; isolation does not necessarily indicate infection. Contact Microbiology Lab if further testing is clinically warranted. FINAL ID= [STREPTOCOCCUS MITIS/ORALIS GRP] Growth of organism in only one of multiple sets; isolation does not necessarily indicate infection. Contact Microbiology Lab if further testing is clinically warranted. STAPHYLOCOCCUS HOMINIS STREPTOCOCCUS MITIS/ORALIS GRP Unless otherwise specified, Testing Performed by: [address] [address] For Inquires, the Physician may contact the Microbiology department at [phone] Objective Assessment 1. Generalized weakness. 2. Coag neg staph Bacteremia, 2/4 bottles present on admission ,likely contaminant 3. Acute kidney injury on chronic kidney disease. 4. Fever. 5. Severe chronic obstructive pulmonary disease. 6. History of COVID-19 infection, treated at [facility] 6 weeks ago. 7. Coronary artery disease. 8. Physical deconditioning. 9. Diabetes mellitus 2. The patient is on chronic prednisone. 10. Dysuria could be from BPH, ua negative Plan Plan of Care p.o. Keflex for 7 days UA negative repeat bc neg Follow up labs and cultures. Continue supportive care. Discussed with LEYLA MCNALLY MD Apr 20, 2020 09:37
--- NOTE | 2020-04-20 09:51 | PDOC ---
IM PROGRESS NOTES- Subjective Subjective No complaints of pain . Dyspnea, cough and congestion are improving. Objective Vitals/I&O Vital Signs Date Time Temp Pulse Resp B/P (MAP) Pulse Ox O2 Delivery O2 Flow Rate FiO2 04/20/20 08:08 58 127/63 04/20/20 08:08 18 Room Air 04/20/20 07:00 96.6 97 96.6 I & O 04/19/20 04/19/20 04/20/20 15:00 23:00 07:00 Intake Total 0 ml Balance 0 ml Physical Exam Physical Exam General appearance - alert,ill appearing, and in no distress and oriented to person, place, and time Mental Status - alert, oriented to person, place, and time, affect appropriate to mood Head - normal Chest -decreased breath sounds at base Heart - S1 and S2 normal Abdomen - soft, nontender Neurological - alert and oriented Musculoskeletal -generalized weakness Extremities - no pedal edema Meds Current Medications Medications (Trade) Dose Ordered Sig/Juhi Route PRN Reason Start Time Stop Time Status Last Admin Dose Admin Multivitamins/ Minerals (I-Jordy) 1 tab DAILY PO 04/19/20 10:00 04/20/20 08:12 Acyclovir (Zovirax) 400 mg [id number] PO 04/19/20 10:00 04/24/20 09:59 04/20/20 08:07 Assessment Assessment Problems Medical Problems: (1) Person under investigation for COVID-19 Status: Acute IMPRESSION: 1. positive blood c/s, staph Hominis,? contamination 2. Weakness with recurrent falls. 3. Acute renal failure with chronic kidney disease 3. His baseline creatinine is 1.6, now it is 2.4. 4. Recurrent falls. 5. Physical deconditioning. 6. Chronic obstructive pulmonary disease. 7. Coronary artery disease. 8. Carotid artery disease. 9. Osteoarthritis. 10. History of L3 compression fracture. 11. Anemia. 12. Hypertension. 13. History of diabetes mellitus type 2. 14. Anxiety. PLAN: Physical deconditioning-continue PT/OT discharge to correction unit when accepted. Blood cultures 2 out of 4 staph hominis. Likely contaminant .repeat blood culture negative.Off daptomycin. On Doxycycline. Slowly improving. Continue doxycycline. Discharge management 35 minutes. Please see details in discharge summary. Patient wants to resume Ocuvite and acyclovir. He is slowly getting stronger. Requires assistance. Discharge management 35 minutes. Plan Plan For more details regarding further plans, please refer to the orders. Justifications for Admission Other Justification MARCELLUS FIERRO MD Apr 20, 2020 09:50
[2020-04-20] MEDS: ALBUTEROL SULFATE 2.5 MG/3 ML NEBU. NEB SCH ×4 (10:05→20:53)
[2020-04-20 10:32] VITALS: BP 114/57
[2020-04-20 14:46] VITALS: BP 122/61
--- NOTE | 2020-04-20 17:29 | NUR ---
SW following for discharge planning. Spoke with RN and reviewed chart. KRISHAN received a VM from [facility] [employer]red ([phone]) stating that prior authorization not needed for pt. KRISHAN spoke with Cee from [facility] who stated that she is being told by [employer] vendor doing authorizations for [facility] that authorization is needed. KRISHAN LVM for [facility] requesting that she contact Cee directly to inform her that authorization not needed. Cee released bed for another pt since she was waiting on authorization so no bed available for discharge today, 04/20. KRISHAN did send referral to [facility] per approval from patient (patient choice of vendor form completed) as PT note stated pt can discharge with HH. Dr. Lopez and patient want SNU. SW following.
[2020-04-20 19:00] VITALS: BP 110/67
[2020-04-20] MEDS: MIRTAZAPINE 7.5 MG TABLET. PO SCH (21:55)
[2020-04-20] MEDS: DOXAZOSIN MESYLATE 4 MG TABLET. PO SCH (21:56)
[2020-04-20] MEDS: MONTELUKAST SODIUM 10 MG TABLET. PO SCH (21:56)
[2020-04-20] MEDS: SIMVASTATIN 20 MG TABLET PO SCH (21:56)
[2020-04-20] MEDS: ALPRAZolam 0.25 MG TABLET PO PRN (21:57)
[2020-04-20 23:00] VITALS: BP 123/73
[2020-04-21 03:00] VITALS: BP 108/54
[2020-04-21 07:00] VITALS: BP 124/65
[2020-04-21] MEDS: ALBUTEROL SULFATE 2.5 MG/3 ML NEBU. NEB SCH ×2 (07:29→11:40)
[2020-04-21] MEDS: CETIRIZINE HCL 10 MG TABLET. PO SCH (08:04)
[2020-04-21] MEDS: CEPHALEXIN 250 MG CAPSULE. PO SCH ×2 (08:04→14:27)
[2020-04-21] MEDS: LACTOBACILLUS RHAMNOSUS GG 1 CAPSULE. PO SCH (08:04)
[2020-04-21] MEDS: hydrALAZINE 25 MG TABLET PO SCH (08:04)
[2020-04-21] MEDS: ACYCLOVIR 200 MG CAPSULE. PO SCH ×2 (08:04→14:27)
[2020-04-21] MEDS: CARVEDILOL 3.125 MG TABLET. PO SCH (08:05)
[2020-04-21] MEDS: MULTIVITAMIN with MINERAL TABLET. PO SCH (08:05)
[2020-04-21] MEDS: ASPIRIN ENTERIC COATED 81 MG TABLET.DR. PO SCH (08:05)
[2020-04-21] MEDS: MULTIVITAMIN I-VITE TABLET. PO SCH (08:05)
[2020-04-21] MEDS: CYANOCOBALAMIN (VITAMIN B-12) 1,000 MCG TABLET. PO SCH (08:05)
[2020-04-21] MEDS: FERROUS SULFATE 325 MG TABLET. PO SCH (08:05)
[2020-04-21] MEDS: HYDROcodone/APAP 7.5/325MG 1 TAB TABLET PO PRN ×2 (08:06→14:28)
[2020-04-21] MEDS: predniSONE 10 MG TABLET PO SCH (08:06)
[2020-04-21] MEDS: FLUTICASONE 50MCG/NASAL SPRAY 16GM BOTTLE. NS SCH (08:10)
[2020-04-21] MEDS: POLYETHYLENE GLYCOL 3350 17 GM PACKET. PO SCH (08:12)
[2020-04-21] MEDS: DICLOFENAC SODIUM 1% TOPICAL GEL 100GM TUBE. TP SCH (09:00)
--- NOTE | 2020-04-21 09:56 | PDOC ---
PROGRESS NOTES Date of Service DATE: 04/21/20 TIME: 09:52 Subjective Subjective He admits continued cough with expectoration. Objective Objective Vital Signs Date Time Temp Pulse Resp B/P (MAP) Pulse Ox O2 Delivery O2 Flow Rate FiO2 04/21/20 08:06 18 Room Air 04/21/20 08:05 64 108/54 04/21/20 07:30 98 04/21/20 03:00 97.2 97.2 Intake and Output 04/21/20 07:00 Intake Total 0 ml Balance 0 ml Intake Oral 0 ml # Voids 2 Physical Exam Physical Exam He is alert,sitting in bed side chair and working with occupational therapy. He had some edema of his feet and legs He did walk for 250' with roller walker with physical therapy under supervision. Assessment Assessment Problems Medical Problems: (1) Person under investigation for COVID-19 Status: Acute Plan Plan of Care To SNF when arrangements are completed or home with home health follow up when medically stable. Comment Review of Relevant I have reviewed the following items tawnya (where applicable) has been applied. Labs Microbiology 04/13/20 Blood Culture - Final, Complete NO GROWTH AFTER 5 DAYS Medications Current Medications Albuterol/ Ipratropium (Duoneb) 3 ml 1X ONCE NEB Last administered on 04/13/20at 09:22; Start 04/13/20 at 06:00; Stop 04/13/20 at 06:01; Status DC Acetaminophen (Tylenol) 650 mg PRN Q6HRS PRN PO MILD PAIN 1-3; Start 04/13/20 at 10:15 Albuterol Sulfate (Ventolin Neb Soln) 2.5 mg RTQID NEB Last administered on 04/21/20at 07:29; Start 04/13/20 at 12:00 Aspirin (Ecotrin) 81 mg DAILY PO Last administered on 04/21/20at 08:05; Start 04/13/20 at 11:00 Carvedilol (Coreg) 3.125 mg BID PO Last administered on 04/13/20at 12:37; Start 04/13/20 at 11:00; Stop 04/13/20 at 17:58; Status DC Cyanocobalamin (Vitamin B-12) 1,000 mcg DAILY PO Last administered on 04/21/20at 08:05; Start 04/14/20 at 09:00 Diclofenac Sodium (Voltaren) 1 roz BID TP Last administered on 04/20/20 21:00; Start 04/13/20 at 11:00 Ferrous Sulfate (Feosol) 325 mg BIDWMEALS PO Last administered on 04/21/20 08:05; Start 04/13/20 at 17:00 Fluticasone Propionate (Flonase) 2 spray DAILY NS Last administered on 04/21/20 08:10; Start 04/13/20 at 11:00 Hydralazine HCl (Apresoline) 25 mg BID PO Last administered on 04/21/20 08:04; Start 04/13/20 at 11:00 Acetaminophen/ Hydrocodone Bitart (Lortab 7.5/325) 1 tab PRN Q6HRS PRN PO MODERATE - SEVERE PAIN Last administered on 04/21/20 08:06; Start 04/13/20 at 10:15 Mirtazapine (Remeron) 7.5 mg HS PO Last administered on 04/20/20 21:55; Start 04/13/20 at 21:00 Montelukast Sodium (Singulair) 10 mg HS PO Last administered on 04/20/20 21:56; Start 04/13/20 at 21:00 Nitroglycerin (Nitrostat) 0.4 mg PRN Q5MIN PRN SL CHEST PAIN; Start 04/13/20 at 10:15 Polyethylene Glycol (miraLAX PACKET) 17 gm DAILY PO Last administered on 04/20/20 08:09; Start 04/14/20 at 09:00 Simvastatin (Zocor) 20 mg HS PO Last administered on 04/20/20 21:56; Start 04/13/20 at 21:00 Non-Formulary Medication (Albuterol Sulfate (Albuterol Sulfate Conc Neb Soln)) 2.5 mg [id number] IH ; Start 04/13/20 at 13:00; Status UNV Doxazosin Mesylate (Cardura) 8 mg HS PO Last administered on 04/20/20 21:56; Start 04/13/20 at 21:00 Cetirizine HCl (ZyrTEC) 10 mg DAILY PO Last administered on 04/21/20 08:04; Start 04/14/20 at 09:00 Multivitamins (Thera M Plus) 1 tab DAILY PO Last administered on 04/21/20at 08:05; Start 04/14/20 at 09:00 Non-Formulary Medication (Turmeric/ Turmeric Root Extract (Turmeric 500 mg Capsule)) 1 cap BID PO ; Start 04/13/20 at 21:00; Status UNV Prednisone (Prednisone) 10 mg DAILY PO Last administered on 04/13/20at 12:38; Start 04/13/20 at 11:00; Stop 04/13/20 at 17:58; Status DC Sodium Chloride 1,000 ml @ 75 mls/hr [id number] IV Last administered on 04/15/20at 10:30; Start 04/13/20 at 10:30; Stop 04/15/20 at 15:59; Status DC Carvedilol (Coreg) 3.125 mg BIDWMEALS PO Last administered on 04/21/20at 08:05; Start 04/13/20 at 18:00 Prednisone (Prednisone) 10 mg DAILY PO Last administered on 04/21/20at 08:06; Start 04/14/20 at 09:00 Daptomycin 450 mg/ Sodium Chloride 50 ml @ 100 mls/hr Q24H IV Last administered on 04/15/20at 12:17; Start 04/14/20 at 11:00; Stop 04/16/20 at 08:55; Status DC Ceftriaxone Sodium (Rocephin) 2 gm Q24H IVP Last administered on 04/14/20at 11:04; Start 04/14/20 at 11:00; Stop 04/15/20 at 09:41; Status DC Glycerin/ Hypromellose/ Polyethylene (Artificial Tears) 1 drop PRN Q15MIN PRN OU DRY EYE Last administered on 04/14/20at 16:44; Start 04/14/20 at 11:15 Lactobacillus Rhamnosus (Culturelle) 1 cap BID PO Last administered on 04/21/20at 08:04; Start 04/14/20 at 21:00 Doxycycline Hyclate (Vibra-Tab) 100 mg BID PO Last administered on 04/18/20at 09:53; Start 04/15/20 at 21:00; Stop 04/18/20 at 11:01; Status DC Alprazolam (Xanax) 0.25 mg PRN Q8HRS PRN PO ANXIETY / AGITATION Last administered on 04/20/20at 21:57; Start 04/15/20 at 11:15 Cephalexin HCl (Keflex) 500 mg TID PO Last administered on 04/21/20at 08:04; Start 04/18/20 at 14:00 Acyclovir (Zovirax) 400 mg BID PO ; Start 04/19/20 at 10:00; Status Cancel Multivitamins/ Minerals (I-Jordy) 1 tab DAILY PO ; Start 04/19/20 at 09:30; Status Cancel Multivitamins/ Minerals (I-Jordy) 1 tab DAILY PO Last administered on 04/21/20at 08:05; Start 04/19/20 at 10:00 Acyclovir (Zovirax) 400 mg [id number] PO Last administered on 04/21/20at 08:04; Start 04/19/20 at 10:00; Stop 04/24/20 at 09:59 Active Scripts Active Doxycycline Hyclate 100 Mg Capsule 1 Cap PO BID 4 Days Culturelle (Lactobacillus Rhamnosus Gg) 1 Each Cap.sprink 1 Cap PO BID 14 Days Feosol (Ferrous Sulfate) 325 Mg Tablet 325 Mg PO BIDWMEALS 30 Days Acyclovir 400 Mg Tablet 1 Tab PO BID Mupirocin Cream (Mupirocin) 15 Gm Cream..g. 1 Roz TP TID 7 Days Polyethylene Glycol 3350 17 Gm Powd.pack 17 Gm PO DAILY 30 Days Hydrocodone-Apap 7.5-325 (Hydrocodone Bit/Acetaminophen) 1 Tab Tablet 1 Tab PO PRN Q6HRS PRN 7 Days Proair Hfa (Albuterol Sulfate) 8.5 Gm Hfa.aer.ad 2.5 Mg NEB RTQID Tylenol (Acetaminophen) 325 Mg Tablet 650 Mg PO PRN Q6HRS PRN 30 Days Voltaren (Diclofenac Sodium) 100 Gm Gel..gram. 1 Roz TP BID 30 Days Vitamin B-12 (Cyanocobalamin (Vitamin B-12)) 1,000 Mcg Tablet 1,000 Mcg PO DAILY Reported Prednisone 20 Mg Tablet 0.5 Tab PO DAILY Turmeric 500 mg Capsule (Turmeric/Turmeric Root Extract) 1 Each Capsule 1 Cap PO BID 30 Days Fluticasone Propionate Nasal [place] (Fluticasone Propionate) 16 Gm [place].susp 2 [place] NS DAILY Aspir-Low (Aspirin) 81 Mg Tablet.dr 1 Tab PO DAILY Doxazosin Mesylate 8 Mg Tablet 1 Tab PO HS Omeprazole 40 Mg Capsule.dr 1 Cap PO DAILY C-1000 (Ascorbic Acid) 1,000 Mg Tablet.er 1,000 Mg PO DAILY Nitrostat (Nitroglycerin) 0.4 Mg Tab.subl 0.4 Mg SL PRN Q5MIN PRN Calcium 500-Vit D3 600 Tablet (Calcium Carbonate/Vitamin D3) 1 Each Tablet 1 Each PO DAILY Singulair Tablet (Montelukast Sodium) 10 Mg Tablet 10 Mg PO HS Centrum Silver Tablet (Multivits-Min/Fa/Lycopene/Lut) 1 Each Tablet 1 Each PO DAILY Carvedilol (Carvedilol) 3.125 Mg Tablet 1 Tab PO BID Hydralazine Hcl 25 Mg Tablet 1 Tab PO BID Mirtazapine 7.5 Mg Tablet 7.5 Mg PO HS Simvastatin 20 Mg Tablet 20 Mg PO HS Symbicort 160-4.5 Mcg Inhaler (Budesonide/Formoterol Fumarate) 10.2 Gm Hfa.aer.ad 2 Inhaler IH BID Albuterol Sulfate Conc Neb Soln (Albuterol Sulfate) 2.5 Mg/0.5 Ml Vial.neb 2.5 Mg IH [id number] Vitals/I & O Vital Sign - Last 24 Hours 04/20/20 04/20/20 04/20/20 04/20/20 10:06 10:32 10:32 13:30 Temp 96.0 96.0 Pulse 68 Resp 18 B/P (MAP) 114/57 (76) Pulse Ox 100 100 98 O2 Delivery Room Air Room Air Room Air 04/20/20 04/20/20 04/20/20 04/20/20 14:12 14:46 14:46 15:12 Temp 97.4 97.4 Resp 17 18 17 B/P (MAP) 122/61 (81) O2 Delivery Room Air Room Air Room Air 04/20/20 04/20/20 04/20/20 04/20/20 16:32 17:52 19:00 20:15 Temp 97.5 97.5 Pulse 68 82 Resp 18 B/P (MAP) 122/61 110/67 (81) Pulse Ox 96 O2 Delivery Room Air Room Air Room Air 104/20/20 04/20/20 04/20/20 20:55 21:56 21:56 21:57 Pulse 82 82 B/P (MAP) 110/67 110/67 Pulse Ox 98 98 O2 Delivery Room Air Room Air 04/20/20 04/20/20 04/21/20 04/21/20 22:56 23:00 03:00 07:00 Temp 97.2 97.2 97.2 97.2 Pulse 80 64 83 Resp 18 18 16 B/P (MAP) 123/73 (90) 108/54 (72) 124/65 (84) Pulse Ox 98 98 95 94 O2 Delivery Room Air Room Air Room Air Room Air 04/21/20 04/21/20 04/21/20 04/21/20 07:30 08:04 08:05 08:06 Pulse 64 64 Resp 18 B/P (MAP) 108/54 108/54 Pulse Ox 98 O2 Delivery Room Air Room Air Intake and Output 04/20/20 04/20/20 04/21/20 15:00 23:00 07:00 Intake Total 0 ml Balance 0 ml Justifications for Admission Other Justification ARI PORTILLO MD Apr 21, 2020 09:56
--- NOTE | 2020-04-21 10:08 | SNU/HH DC ---
DISCHARGE WITH HOME HEALTH DISCHARGE INFORMATION: Final Diagnosis: Problems Medical Problems: (1) Person under investigation for COVID-19 Status: Acute Condition on Discharge: Stable HOME HEALTH: Face to Face: I certify this patient is under my care and that I, or a nurse practitioner or physician's media assistant working with me, had a face to face encounter that meets the physician face to face encounter requirements with this patient on April 21, 2020. Medical Complications: COPD RN For Eval/Treatment: Yes Physical Therapy For: Evalulation/Treatment Occupational Therapy For: Evaluation/Treatment Pt Meets Homebound Status: Unsteady balance w/ amb, POST DISCHARGE ORDERS: Activity Instructions for Disc: Activity as tolerated (With walker and PT OT) Weight Bearing Status after Di: As tolerated DIET AFTER DISCHARGE: Cardiac DC TO SNF OTHER: Fall precautions CHECKS AFTER DISCHARGE: Checks after discharge: Check blood press - daily, Check your Temp as needed, Weigh Yourself Daily FOLLOW-UP: PCP to follow Home Health: Yes Follow up with: Dr. Marcellus Fierro in 5 days after discharge TREATMENT/EQUIPMENT ORDERS: Adaptive Equipment Issued: None, Walker Discharge Respiratory Equipmen: Nebulizer CERTIFICATION STATEMENT: Certification Statement: Certification Statement: Based on the above finding, I certify that this patient is confined to the home and needs intermittent usp care, physical therapy and/or speech therapy, or continues to need occupational therapy.~ This patient is under my care, and I have initiated the establishment of the plan of care.~ This patient will be followed by myself or a community physician who will periodically review the plan of care. Home Meds Active Scripts Doxycycline Hyclate (DOXYCYCLINE HYCLATE) 100 Mg Capsule, 1 CAP PO BID for Infection for 4 Days, #8 CAP Prov:MARCELLUS FIERRO MD 04/19/20 Lactobacillus Rhamnosus Gg (CULTURELLE) 1 Each Cap.sprink, 1 CAP PO BID for antibiotic use for 14 Days, #28 CAP Prov:MARCELLUS FIERRO MD 04/17/20 Ferrous Sulfate (FEOSOL) 325 Mg Tablet, 325 MG PO BIDWMEALS for anemia for 30 Days, #60 TAB Prov:MARCELLUS FIERRO MD 07/15/19 Acyclovir (ACYCLOVIR) 400 Mg Tablet, 1 TAB PO BID for herpes simplex, #10 TAB 3 Refills Prov:MARCELLUS FIERRO MD 07/15/19 Mupirocin Calcium (MUPIROCIN CREAM) 15 Gm Cream..g., 1 SONAM TP TID for skin cuts for 7 Days, #1 EACH Prov:MARCELLUS FIERRO MD 01/28/19 Polyethylene Glycol 3350 (POLYETHYLENE GLYCOL 3350) 17 Gm Powd.pack, 17 GM PO DAILY for constipation for 30 Days, #30 PKT Prov:MARCELLUS FIERRO MD 01/28/19 Hydrocodone Bit/Acetaminophen (HYDROCODONE-APAP 7.5-325 ) 1 Tab Tablet, 1 TAB PO PRN Q6HRS PRN for MODERATE - SEVERE PAIN for 7 Days, #28 TAB Prov:MARCELLUS FIERRO MD 01/28/19 Albuterol Sulfate (Proair Hfa) 8.5 Gm Hfa.aer.ad, 2.5 MG NEB RTQID for COPD, #1 INHALER Prov:MARCELLUS FIERRO MD 01/21/19 Acetaminophen (TYLENOL) 325 Mg Tablet, 650 MG PO PRN Q6HRS PRN for MILD PAIN for 30 Days, #120 TAB Prov:MARCELLUS FIERRO MD 05/11/18 Diclofenac Sodium (VOLTAREN) 100 Gm Gel..gram., 1 SONAM TP BID for arthritis for 30 Days, #100 GM 1 Refill Prov:MARCELLUS FIERRO MD 05/11/18 Cyanocobalamin (Vitamin B-12) (VITAMIN B-12) 1,000 Mcg Tablet, 1000 MCG PO DAILY, #30 TAB Prov:MARCELLUS FIERRO MD 03/24/14 Reported Medications Prednisone (PREDNISONE) 20 Mg Tablet, 0.5 TAB PO DAILY for unknown, #5 TAB 04/13/20 Turmeric/Turmeric Root Extract (Turmeric 500 mg Capsule) 1 Each Capsule, 1 CAP PO BID for mms cramping for 30 Days, #60 CAP 0 Refills 07/13/19 Fluticasone Propionate (FLUTICASONE PROPIONATE NASAL SPRAY) 16 Gm [place].susp, 2 SPRAY NS DAILY for ALLERGIES, #1 INHALER 11 Refills 01/17/19 Aspirin (ASPIR-LOW) 81 Mg Tablet.dr, 1 TAB PO DAILY for CIRCULATION, #30 TAB 3 Refills 01/17/19 Doxazosin Mesylate (DOXAZOSIN MESYLATE) 8 Mg Tablet, 1 TAB PO HS for PROSTATE, #30 TAB 5 Refills 01/17/19 Omeprazole (OMEPRAZOLE) 40 Mg Capsule.dr, 1 CAP PO DAILY for GERD, #30 CAP 3 Refills 01/17/19 Ascorbic Acid (C-1000) 1,000 Mg Tablet.er, 1000 MG PO DAILY for SUPPLEMENT, TAB.SR 09/09/18 Nitroglycerin (NITROSTAT) 0.4 Mg Tab.subl, 0.4 MG SL PRN Q5MIN PRN for CHEST PAIN, BOTTLE 09/09/18 Calcium Carbonate/Vitamin D3 (Calcium 500-Vit D3 600 Tablet) 1 Each Tablet, 1 EACH PO DAILY for SUPPLEMENT, TAB 09/09/18 Montelukast Sodium (SINGULAIR TABLET ) 10 Mg Tablet, 10 MG PO HS for FOR ASTHMA, #30 TAB 0 Refills 03/20/14 Multivits-Min/Fa/Lycopene/Lut (CENTRUM SILVER TABLET) 1 Each Tablet, 1 EACH PO DAILY 03/20/14 Carvedilol (CARVEDILOL ) 3.125 Mg Tablet, 1 TAB PO BID, #60 TAB 5 Refills 03/20/14 Hydralazine Hcl (HYDRALAZINE HCL) 25 Mg Tablet, 1 TAB PO BID, #60 TAB 5 Refills 03/20/14 Mirtazapine (MIRTAZAPINE) 7.5 Mg Tablet, 7.5 MG PO HS 08/03/13 Simvastatin (SIMVASTATIN) 20 Mg Tablet, 20 MG PO HS 08/03/13 Budesonide/Formoterol Fumarate (SYMBICORT 160-4.5 MCG INHALER) 10.2 Gm Hfa.aer.ad, 2 INHALER IH BID 08/03/13 Albuterol Sulfate (ALBUTEROL SULFATE CONC NEB SOLN) 2.5 Mg/0.5 Ml Vial.neb, 2.5 MG IH [id number] 08/03/13 MARCELLUS FIERRO MD Apr 21, 2020 10:08
--- NOTE | 2020-04-21 10:09 | PDOC ---
IM PROGRESS NOTES- Subjective Subjective No complaints of pain . Dyspnea, cough and congestion are improving. Objective Vitals/I&O Vital Signs Date Time Temp Pulse Resp B/P (MAP) Pulse Ox O2 Delivery O2 Flow Rate FiO2 04/21/20 08:06 18 Room Air 04/21/20 08:05 64 108/54 04/21/20 07:30 98 04/21/20 03:00 97.2 97.2 I & O 04/20/20 04/20/20 04/21/20 15:00 23:00 07:00 Intake Total 0 ml Balance 0 ml Physical Exam Physical Exam General appearance - alert,ill appearing, and in no distress and oriented to person, place, and time Mental Status - alert, oriented to person, place, and time, affect appropriate to mood Head - normal Chest -decreased breath sounds at base Heart - S1 and S2 normal Abdomen - soft, nontender Neurological - alert and oriented Musculoskeletal -generalized weakness Extremities - no pedal edema Assessment Assessment Problems Medical Problems: (1) Person under investigation for COVID-19 Status: Acute IMPRESSION: 1. positive blood c/s, staph Hominis,? contamination 2. Weakness with recurrent falls. 3. Acute renal failure with chronic kidney disease 3. His baseline creatinine is 1.6, now it is 2.4. 4. Recurrent falls. 5. Physical deconditioning. 6. Chronic obstructive pulmonary disease. 7. Coronary artery disease. 8. Carotid artery disease. 9. Osteoarthritis. 10. History of L3 compression fracture. 11. Anemia. 12. Hypertension. 13. History of diabetes mellitus type 2. 14. Anxiety. PLAN: Physical deconditioning-continue PT/OT [facility] prison [facility] when [facility]. Blood cultures 2 out of 4 staph hominis. Likely contaminant .repeat blood culture negative.Off daptomycin. On Doxycycline. Slowly improving. Continue doxycycline. Discharge management 35 minutes. Please see details in discharge summary. Patient wants to resume Ocuvite and acyclovir. He is slowly getting stronger. Long-term as well as short-term prognosis of this patient is poor. Discharge management 35 minutes. Discharge to prison facility. Plan Plan For more details regarding further plans, please refer to the orders. Justifications for Admission Other Justification MARCELLUS FIERRO MD Apr 21, 2020 10:09
[2020-04-21 11:00] VITALS: BP 118/60
[2020-04-21] MEDS: ALPRAZolam 0.25 MG TABLET PO PRN (14:28)
--- NOTE | 2020-04-21 15:00 | NUR ---
Attempted 2 times to call report to [facility]. Was on hold waiting for nurse by the name of Jesús. Packet sent with patient at time of discharge.
--- NOTE | 2020-04-21 15:05 | NUR ---
Pt discharged to [facility]. Discharge packet sent with patient.
--- NOTE | 2020-04-21 16:10 | NUR ---
SW following for discharge planning. Spoke with RN and reviewed chart. Pt to discharge to [facility] today at 1500. Discharge ordered phoned and faxed. SW confirmed orders were received. RN to call report. Clinicals ready to be sent with pt. No further SW needs.
[2020-07-05] MEDS ORDERED: ACYC200C84 PO (09:40)
== END 2020-04-21 15:08 | DRG 683 ==
LOC: ER 23:53 → 6 SOUTH 04-13 10:19
PROVIDERS: ADMIT Internal Medicine; ATTEND Internal Medicine
DX: N17.0 Acute kidney failure with tubular necrosis (principal); I13.0 Hypertensive heart and chronic kidney disease with heart failure and stage 1 through stage 4 chronic kidney disease, or unspecified chronic kidney disease; R78.81 Bacteremia; R50.9 Fever, unspecified; D64.9 Anemia, unspecified; E11.22 Type 2 diabetes mellitus with diabetic chronic kidney disease; E11.42 Type 2 diabetes mellitus with diabetic polyneuropathy; E78.00 Pure hypercholesterolemia, unspecified; F41.9 Anxiety disorder, unspecified; I25.10 Atherosclerotic heart disease of native coronary artery without angina pectoris; I50.9 Heart failure, unspecified; I25.2 Old myocardial infarction; J44.9 Chronic obstructive pulmonary disease, unspecified; K59.00 Constipation, unspecified; L60.0 Ingrowing nail; M15.9 Polyosteoarthritis, unspecified; N18.30 Chronic kidney disease, stage 3 unspecified; N40.0 Benign prostatic hyperplasia without lower urinary tract symptoms; R29.6 Repeated falls; Z20.822 Contact with and (suspected) exposure to COVID-19; Z79.52 Long term (current) use of systemic steroids; Z82.49 Family history of ischemic heart disease and other diseases of the circulatory system; Z86.19 Personal history of other infectious and parasitic diseases; Z86.718 Personal history of other venous thrombosis and embolism; Z87.891 Personal history of nicotine dependence; Z90.49 Acquired absence of other specified parts of digestive tract; Z95.5 Presence of coronary angioplasty implant and graft; K21.9 Gastro-esophageal reflux disease without esophagitis; Z20.828 Contact with and (suspected) exposure to other viral communicable diseases; Z88.2 Allergy status to sulfonamides; Z88.8 Allergy status to other drugs, medicaments and biological substances; B95.7 Other staphylococcus as the cause of diseases classified elsewhere
CPT/HCPCS: 36415; 70450; 71045; 80048; 80053; 81001; 82550; 83605; 83735; 84145; 85025; 87040; 87077; 87205; 87804; 93005; 94640; 94760; J0696; J0878; J7030; J7512; U0003; 97110-GP; 97116-GP; 97530-GO; 97530-GP; 97535-GO; 99285-25; G0378; J7613

== ENCOUNTER 2020-06-27 14:24 | Inpatient (IN) | payer BC ==
[~2020-06-27] VITALS: Ht 167.6 cm; Wt 74.1 kg
[~2020-06-27 14:24] MED LIST changes: -ACYC-12 PO; +ACYC400T PO; +DOXY100C2 PO; +LACT1CAP19 PO; +OMEP40CA45 PO; -OMEP40CA7 PO
[2020-06-27 16:05] LABS: BASO % 1 % (0-3); EOS # 0.3 x10^3/uL (0.0-0.7); EOS % 5 % (0-3); HEMOGLOBIN 10.1 g/dL (13.0-17.5); LYMPH % 16 % (24-48); MEAN CORPUSCULAR HEMOGLOBIN 31 pg (25-35); MEAN CORPUSCULAR HGB CONC 33 g/dL (31-37); MEAN CORPUSCULAR VOLUME 93 fL (79-100); MONO # 0.6 x10^3/uL (0.0-1.1); MONO % 10 % (0-9); NEUT # 4.2 x10^3/uL (1.8-7.7); NEUT % 68 % (31-73); PLATELET COUNT 158 x10^3/uL (140-400); RED BLOOD COUNT 3.33 x10^6/uL (4.30-5.70); RED CELL DISTRIBUTION WIDTH 14.4 % (11.5-14.5); WHITE BLOOD COUNT 6.2 x10^3/uL (4.0-11.0)
--- NOTE | 2020-06-27 16:10 | EKG ---
[facility] [address] [place] [address] Test Date: 2020-06-27 Test Time: 15:55:14 Pat Name: BASHIR ARROYO Department: Room: Gender: M Rough Patcher: : 1935 Requested By: PAT SANTIAGO Order Number: [id number] Reading MD: Aren Stover MD Measurements Intervals [place] Rate: 69 P: 45 CO: 170 QRS: 2 QRSD: 98 T: 60 QT: 376 QTc: 404 Interpretive Statements SINUS RHYTHM QRS(T) CONTOUR ABNORMALITY CONSISTENT WITH ANTERIOR INFARCT PROBABLY OLD ABNORMAL ECG Electronically Signed On 06-27-2020 17:37:02 CDT by Aren Stover MD
[2020-06-27 16:38] LABS: CREATININE 2.2 mg/dL (0.7-1.3); GFR 28.5
[2020-06-27 16:44] LABS: ALBUMIN 3.3 g/dL (3.4-5.0); ALBUMIN/GLOBULIN RATIO 1.1 (1.0-1.7); TOTAL BILIRUBIN 0.6 mg/dL (0.2-1.0); TOTAL PROTEIN 6.4 g/dL (6.4-8.2)
--- NOTE | 2020-06-27 17:32 | RAD ---
Exam: CT head and cervical spine without contrast INDICATION: Fall TECHNIQUE: Sequential axial images through the head and cervical spine were obtained without the admi nistration of IV contrast. Comparisons: None FINDINGS: Head: No focal parenchymal lesion or hemorrhage is identified. There is no midline shift or sulcal effaceme nt. Mild patchy evidence in the periventricular white No acute vascular territory infarction is identifie d. Smith-white distinction is preserved. The ventricular system is within normal limits without compression hydrocephalus. The basal cisterns are well maintained. The visualized portions of the paranasal sinuses and mastoid air cells are well-pneumatized. No acute fractures. Cervical spine: Vertebral body heights and alignment are well-maintained. Fracture to the cervical spine is not identified. Multilevel spondylotic change in cervical spine with degenerative disc disease greatest at C2-C3, C3- C4 and C4-C5. Mild bilateral facet arthropathy is also noted. Visualized paraspinal soft tissues are unremarkable. IMPRESSION: 1. No acute intracranial abnormality. 2. Negative CT C-spine for acute traumatic injury. Exposure: One or more of the following in the visualized dose reduction techniques were utilized for this examination: 1. Automated exposure control 2. Adjustment of the MA and/or KV according to patient size Use of iterative of reconstructive technique Electronically signed by: José Manuel Johnson MD (06/27/2020 5:29 PM) [facility]
--- NOTE | 2020-06-27 17:59 | RAD ---
EXAM: CT Chest, Abdomen and Pelvis without IV contrast CLINICAL HISTORY: Fall COMPARISON: 12/27/2017, 07/02/2017 TECHNIQUE: Helical CT of the chest, abdomen and pelvis was performed without intravenous contrast. Ax ial, coronal and sagittal reformatted images were generated. ---PQRS compliance statement - One or more of the following individualized dose reduction techniques were utilized for this study: 1. Automated exposure control 2. Adjustment of the mA and/or kV according to patient size 3. Use of iterative reconstruction technique--- FINDINGS: Lack of intravenous contrast limits evaluation of solid organs, vasculature, and lymph nodes. Chest: Thyroid is unremarkable. Within the constraints of noncontrast examination, no mediastinal or hilar l ymphadenopathy. No axillary lymphadenopathy. No pleural effusion or pneumothorax. Ectasia of ascending aorta. Dense aortic calcifications are seen particularly arch and the descending aorta. Coronary artery calcifications. Heart is not enlarged. No pericardial effusion. Biapical pleural/parenchymal scarring/thickening. 6 mm left lower lobe lung nodule is stable to 2017. Patchy parenchymal opacities left upper lobe posteriorly. Abdomen and Pelvis: Right hepatic cyst measures 3.8 x 4.3 cm. Cyst in the caudate is also seen. Gallbladder is unremarkab le. No biliary duct dilatation. Pancreas, spleen, adrenal glands are normal in appearance. Right lowe r pole and right upper pole renal cysts are seen. In addition a left lower pole renal cyst is also se en. No hydronephrosis or hydroureter. Bladder diverticula are seen. Bladder is otherwise unremarkable . Moderate colonic stool content is noted. Colonic diverticulosis without CT evidence for acute diverti culitis. No abdominal or pelvic ascites. IVC filter is seen. Aneurysmal dilatation of the infrarenal aorta measures 3.2 cm. Dense atherosclerotic calcifications of the infrarenal aorta. Right inguinal f at-containing hernia. Bones: Multilevel degenerative changes of the spine are seen. Multilevel Schmorl's nodes are noted. Trace he ight loss of the L3 vertebral body, stable. Decreased bone mineral density. IMPRESSION: 1. No evidence for acute intrathoracic, abdominal or pelvic trauma. 2. Patchy parenchymal opacities left upper lobe posteriorly may represent infectious/inflammatory pr ocess.s consider follow-up CT in 3 months to ensure stability. 3. Infrarenal abdominal aortic aneurysm measures 3.2 cm. 4. Bladder diverticula are seen. 5. Colonic diverticulosis without CT evidence for acute diverticulitis. 6. Decreased bone mineral density. No obvious acute displaced fractures identified. Exam: CT thoracic spine CT lumbar spine CLINICAL HISTORY: Reason: fall / Spl. Instructions: / History: COMPARISON: None available. TECHNIQUE: CT of the thoracic and lumbar spine were reconstructed from CT chest abdomen pelvis data. Axial, coronal and sagittal reformatted images were generated. PQRS compliance statement - One or more of the following individualized dose reduction techniques wer e utilized for this study: 1. Automated exposure control 2. Adjustment of the mA and/or kV according to patient size 3. Use of iterative reconstruction technique FINDINGS: There is mild height loss of the L3 vertebral body. Multilevel Schmorl's nodes are seen. Moderate mul tilevel disc height loss, most prominent at the mid thoracic spine as well as L2-3 and L4-5. No spond ylolisthesis. Marked osteopenia. Generalized disc bulges are seen at L2-3 and L3-4 resulting in mild to moderate central canal stenosis. There is also a mild generalized disc bulge at L4-5 and L5-S1 cau sing mild central canal stenosis. IMPRESSION: No acute fracture or subluxation. Multilevel degenerative changes as above. Electronically signed by: Isaiah Pereira MD (06/27/2020 5:56 PM) [facility]
--- NOTE | 2020-06-27 18:18 | PHYS DOC ---
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 [] Eyes: Denies change in visual acuity. [] HENT: Denies nasal congestion or sore throat. [] Respiratory: Denies cough or shortness of breath. [] Cardiovascular: Denies chest pain or edema. [] GI: Denies abdominal pain, nausea, vomiting, bloody stools or diarrhea. [] : Denies dysuria. [] Musculoskeletal: Denies back pain or joint pain. [] Integument: Denies rash. [] Neurologic: Denies headache, focal weakness or sensory changes. [] Endocrine: Denies polyuria or polydipsia. [] Lymphatic: Denies swollen glands. [] Psychiatric: Denies depression or anxiety. [] Heart Score: Risk Factors: Risk Factors: DM, Current or recent (<one month) smoker, HTN, HLP, family history of CAD, obesity. Risk Scores: Score 0 - 3: 2.5% MACE over next 6 weeks - Discharge Home Score 4 - 6: 20.3% MACE over next 6 weeks - Admit for Clinical Observation Score 7 - 10: 72.7% MACE over next 6 weeks - Early Invasive Strategies Allergies: Allergies: Allergies Coded Allergies Type Severity Reaction Last Updated Verified Sulfa (Sulfonamide Antibiotics) Allergy Severe 02/24/20 Yes clopidogrel Allergy Intermediate 02/24/20 Yes valsartan Allergy Intermediate 02/24/20 Yes warfarin Allergy Intermediate 02/24/20 Yes Physical Exam: PE: Constitutional: Well developed, well nourished, no acute distress, non-toxic appearance. HENT: Normocephalic, atraumatic, Eyes: EOMI, conjunctiva normal, no discharge. Neck: Normal range of motion, supple, Cardiovascular: S1/2 present, regular rhythm Lungs & Thorax: Speaking in full sentences, bilateral equal chest rise, no tachypnea or increased work of breathing Abdomen: soft, no tenderness, Skin: Warm, dry, no erythema, no rash. [] Back: No tenderness, no CVA tenderness. [] Extremities: No tenderness, no cyanosis, no lower extremity edema Neurologic: Alert and oriented X 3, normal motor function, normal sensory function, no focal deficits noted. [] Psychologic: Affect normal, judgement normal, mood normal. [] Current Patient Data: Labs: Laboratory Tests Test 06/27/20 15:05 06/27/20 15:35 Lactic Acid Level 0.9 mmol/L (0.4-2.0) White Blood Count 6.2 x10^3/uL (4.0-11.0) Red Blood Count 3.33 x10^6/uL (4.30-5.70) L Hemoglobin 10.1 g/dL (13.0-17.5) L Hematocrit 31.0 % (39.0-53.0) L Mean Corpuscular Volume 93 fL (79-100) Mean Corpuscular Hemoglobin 31 pg (25-35) Mean Corpuscular Hemoglobin Concent 33 g/dL (31-37) Red Cell Distribution Width 14.4 % (11.5-14.5) Platelet Count 158 x10^3/uL (140-400) Neutrophils (%) (Auto) 68 % (31-73) Lymphocytes (%) (Auto) 16 % (24-48) L Monocytes (%) (Auto) 10 % (0-9) H Eosinophils (%) (Auto) 5 % (0-3) H Basophils (%) (Auto) 1 % (0-3) Neutrophils # (Auto) 4.2 x10^3/uL (1.8-7.7) Lymphocytes # (Auto) 1.0 x10^3/uL (1.0-4.8) Monocytes # (Auto) 0.6 x10^3/uL (0.0-1.1) Eosinophils # (Auto) 0.3 x10^3/uL (0.0-0.7) Basophils # (Auto) 0.0 x10^3/uL (0.0-0.2) Prothrombin Time 13.0 SEC (11.7-14.0) Prothrombin Time INR 1.0 (0.8-1.1) Activated Partial Thromboplast Time 30 SEC (24-38) Sodium Level 140 mmol/L (136-145) Potassium Level 4.0 mmol/L (3.5-5.1) Chloride Level 104 mmol/L (98-107) Carbon Dioxide Level 29 mmol/L (21-32) Anion Gap 7 (6-14) Blood Urea Nitrogen 27 mg/dL (8-26) H Creatinine 2.2 mg/dL (0.7-1.3) H Estimated GFR (Cockcroft-Gault) 28.5 BUN/Creatinine Ratio 12 (6-20) Glucose Level 84 mg/dL (70-99) Calcium Level 9.0 mg/dL (8.5-10.1) Magnesium Level 2.2 mg/dL (1.8-2.4) Total Bilirubin 0.6 mg/dL (0.2-1.0) Aspartate Amino Transferase (AST) 28 U/L (15-37) Alanine Aminotransferase (ALT) 22 U/L (16-63) Alkaline Phosphatase 46 U/L (46-116) Troponin I Quantitative 0.069 ng/mL (0.000-0.055) Total Protein 6.4 g/dL (6.4-8.2) Albumin 3.3 g/dL (3.4-5.0) L Albumin/Globulin Ratio 1.1 (1.0-1.7) Lipase 113 U/L (73-393) Ethyl Alcohol Level < 10 mg/dL (0-10) Laboratory Tests 06/27/20 15:35 Laboratory Tests 06/27/20 15:35 Vital Signs: Vital Signs Date Time Temp Pulse Resp B/P (MAP) Pulse Ox O2 Delivery O2 Flow Rate FiO2 06/27/20 16:39 69 129/89 (102) 99 Room Air 06/27/20 14:30 97.7 20 97.7 EKG: EKG: Sinus rhythm at 69 bpm, left axis deviation, normal intervals, slight ST elevati ons V1, V2 and V3, compared with prior EKG from April 132019-locations were present but are more pronounced today, no reciprocal changes, no ST segment depressions, patient with no active chest/\shoulder/jaw discomfort currently or when patient fell last night Radiology/Procedures: Radiology/Procedures: IMAGING REPORT Signed PATIENT: BASHIR ARROYO ACCOUNT: [id number] : 1935 LOCATION: ER AGE: 85 SEX: M EXAM STATUS: REG ER ORD. PHYSICIAN: PAT SANTIAGO DO REASON: fall PROCEDURE: CT HEAD AND CERVICAL SPINE WO Exam: CT head and cervical spine without contrast INDICATION: Fall TECHNIQUE: Sequential axial images through the head and cervical spine were obtained without the administration of IV contrast. Comparisons: None FINDINGS: Head: No focal parenchymal lesion or hemorrhage is identified. There is no midline shift or sulcal effacement. Mild patchy evidence in the periventricular white No acute vascular territory infarction is identified. Smith-white distinction is preserved. The ventricular system is within normal limits without compression hydrocephalus. The basal cisterns are well maintained. The visualized portions of the paranasal sinuses and mastoid air cells are well- pneumatized. No acute fractures. Cervical spine: Vertebral body heights and alignment are well-maintained. Fracture to the cervical spine is not identified. Multilevel spondylotic change in cervical spine with degenerative disc disease greatest at C2-C3, C3-C4 and C4-C5. Mild bilateral facet arthropathy is also noted. Visualized paraspinal soft tissues are unremarkable. IMPRESSION: 1. No acute intracranial abnormality. 2. Negative CT C-spine for acute traumatic injury. Exposure: One or more of the following in the visualized dose reduction techniques were utilized for this examination: 1. Automated exposure control 2. Adjustment of the MA and/or KV according to patient size Use of iterative of reconstructive technique Electronically signed by: José Manuel Bearden MD (06/27/2020 5:29 PM) [facility] DICTATED and SIGNED BY: JOSÉ MANUEL BEARDEN MD DATE: 06/27/20 [id number] IMAGING REPORT Signed PATIENT: BASHIR ARROYO ACCOUNT: [id number] : 1935 LOCATION: ER AGE: 85 SEX: M EXAM STATUS: REG ER ORD. PHYSICIAN: PAT SANTIAGO DO REASON: fall PROCEDURE: CT CHEST ABDOMEN PELVIS WO EXAM: CT Chest, Abdomen and Pelvis without IV contrast CLINICAL HISTORY: Fall COMPARISON: 12/27/2017, 07/02/2017 TECHNIQUE: Helical CT of the chest, abdomen and pelvis was performed without intravenous contrast. Axial, coronal and sagittal reformatted images were generated. ---PQRS compliance statement - One or more of the following individualized dose reduction techniques were utilized for this study: 1. Automated exposure control 2. Adjustment of the mA and/or kV according to patient size 3. Use of iterative reconstruction technique--- FINDINGS: Lack of intravenous contrast limits evaluation of solid organs, vasculature, and lymph nodes. Chest: Thyroid is unremarkable. Within the constraints of noncontrast examination, no mediastinal or hilar lymphadenopathy. No axillary lymphadenopathy. No pleural effusion or pneumothorax. Ectasia of ascending aorta. Dense aortic calcifications are seen particularly arch and the descending aorta. Coronary artery calcifications. Heart is not enlarged. No pericardial effusion. Biapical pleural/parenchymal scarring/thickening. 6 mm left lower lobe lung nodule is stable to 07/02/2017. Patchy parenchymal opacities left upper lobe posteriorly. Abdomen and Pelvis: Right hepatic cyst measures 3.8 x 4.3 cm. Cyst in the caudate is also seen. Gallbladder is unremarkable. No biliary duct dilatation. Pancreas, spleen, adrenal glands are normal in appearance. Right lower pole and right upper pole renal cysts are seen. In addition a left lower pole renal cyst is also seen. No hydronephrosis or hydroureter. Bladder diverticula are seen. Bladder is otherwise unremarkable. Moderate colonic stool content is noted. Colonic diverticulosis without CT evidence for acute diverticulitis. No abdominal or pelvic ascites. IVC filter is seen. Aneurysmal dilatation of the infrarenal aorta measures 3.2 cm. Dense atherosclerotic calcifications of the infrarenal aorta. Right inguinal fat- containing hernia. Bones: Multilevel degenerative changes of the spine are seen. Multilevel Schmorl's nodes are noted. Trace height loss of the L3 vertebral body, stable. Decreased bone mineral density. IMPRESSION: 1. No evidence for acute intrathoracic, abdominal or pelvic trauma. 2. Patchy parenchymal opacities left upper lobe posteriorly may represent infectious/inflammatory process.s consider follow-up CT in 3 months to ensure stability. 3. Infrarenal abdominal aortic aneurysm measures 3.2 cm. 4. Bladder diverticula are seen. 5. Colonic diverticulosis without CT evidence for acute diverticulitis. 6. Decreased bone mineral density. No obvious acute displaced fractures identified. Exam: CT thoracic spine CT lumbar spine CLINICAL HISTORY: Reason: fall / Spl. Instructions: / History: COMPARISON: None available. TECHNIQUE: CT of the thoracic and lumbar spine were reconstructed from CT chest abdomen pelvis data. Axial, coronal and sagittal reformatted images were ge nerated. PQRS compliance statement - One or more of the following individualized dose reduction techniques were utilized for this study: 1. Automated exposure control 2. Adjustment of the mA and/or kV according to patient size 3. Use of iterative reconstruction technique FINDINGS: There is mild height loss of the L3 vertebral body. Multilevel Schmorl's nodes are seen. Moderate multilevel disc height loss, most prominent at the mid thoracic spine as well as L2-3 and L4-5. No spondylolisthesis. Marked osteopenia. Generalized disc bulges are seen at L2-3 and L3-4 resulting in mild to moderate central canal stenosis. There is also a mild generalized disc bulge at L4-5 and L5-S1 causing mild central canal stenosis. IMPRESSION: No acute fracture or subluxation. Multilevel degenerative changes as above. Electronically signed by: Isaiah Law MD (06/27/2020 5:56 PM) [facility] DICTATED and SIGNED BY: ISAIAH LAW MD DATE: 06/27/20 [id number] 0 Course & Med Decision Making: Course & Med Decision Making Pertinent Labs and Imaging studies reviewed. (See chart for details) Discussed EKG changes with Dr. Henson-we will admit for serial troponins. Patient excepted by Dr. Lopez. Patient and her daughter present at bedside agree with this plan. Patient was stable at time of admission. I have spoken with the patient and/or caregivers. I have explained the patient's condition, diagnosis and treatment plan based on the information available to me at this time. I have answered the patient's and/or caregivers questions and answered any concerns. The patient and/or caregivers have as good an understanding of the patient's diagnosis, condition and treatment plan as can be expected at this point. The patient has been stabilized within the capability of the emergency department. The patient will be transported for further care and management or will be moved to an observation or inpatient service. I have communicated with the staff or medical practitioner taking over this patient's care. Nereyda Disclaimer: Dragon Disclaimer: This electronic medical record was generated, in whole or in part, using a voice recognition dictation system. Departure Departure Impression: Primary Impression: NSTEMI (non-ST elevated myocardial infarction) Additional Impressions: CKD (chronic kidney disease) Accidental fall Disposition: 09 ADMITTED INPT THIS HOSP Admitting Physician: Marcellus Lopez Condition: STABLE Referrals: MARCELLUS LOPEZ MD (PCP) [facility] Jun 27, 2020 18:18
[2020-06-27 19:28] LABS: BILIRUBIN,URINE NEGATIVE (NEG); CLARITY,URINE CLEAR; COLOR,URINE YELLOW; NITRITE,URINE NEGATIVE (NEG); PROTEIN,URINE 30 mg/dL (NEG-TRACE); UROBILINOGEN,URINE 0.2 mg/dL (0.2 mg/dL)
[2020-06-27 19:33] LABS: AMPHETAMINE/METHAMPHETAMINE NEG (NEG); BARBITURATES NEG (NEG); BENZODIAZEPINES NEG (NEG); CANNABINOIDS NEG (NEG); COCAINE NEG (NEG); METHADONE NEG (NEG); OPIATES NEG (NEG); PHENCYCLIDINE NEG (NEG)
[2020-06-27 19:34] LABS: BACTERIA,URINE 0 /HPF (0-FEW); WBC,URINE 0 /HPF (0-4)
[2020-06-27 19:35] LABS: RBC,URINE OCC /HPF (0-2)
--- NOTE | 2020-06-27 20:25 | EKG ---
[facility] [address] [place] [id number] Test Date: 2020-06-27 Test Time: 20:09:52 Pat Name: BASHIR ARROYO Department: Room: Gender: M [employer]: : 1935 Requested By: PAT SANTIAGO Order Number: [id number] Reading MD: Measurements Intervals [place] Rate: 74 P: -65 IL: 94 QRS: 27 QRSD: 94 T: 36 QT: 418 QTc: 464 Interpretive Statements SINUS RHYTHM QRS(T) CONTOUR ABNORMALITY CONSISTENT WITH ANTERIOR INFARCT AGE UNDETERMINED ABNORMAL ECG RI6.01 No previous ECG available for comparison
[2020-06-27 22:40] VITALS: BP 80/48
[2020-06-27 22:45] VITALS: BP 129/61
[2020-06-27] MEDS ORDERED: PRED-220 PO (23:59)
[2020-06-28] VITALS (7 sets, daily range): BP systolic 114–128; BP diastolic 51–67
[2020-06-28] MEDS ORDERED: GUAI600T47 PO (00:02)
--- NOTE | 2020-06-28 08:59 | PDOC2 ---
CARDIAC CONSULT DATE OF CONSULT Date of Consult DATE: 06/28/20 TIME: 08:36 REASON FOR CONSULT Reason for Consult: Elevated troponin REFERRING PHYSICIAN Referring Physician: John SOURCE Source: Chart review, Patient HISTORY OF PRESENT ILLNESS HISTORY OF PRESENT ILLNESS This is a pleasant 85 yo male admitted for complains of fall. Reports that yesterday he did not drink enough fluids but his appetite has been fair. He is fairly compliant with his medications. He has significant cardiovascular history but has not seen [facility] to which he could remember and noted that he was seen last in [address] Shetty at [facility]. Reports that at home he fell and remember falling and denies passing out dizziness or loss of consciousness. No palpitations, chest pain or SOA and no symptoms leading up to the event. He was on the floor and could not get up and reports that he was just weak and was pounding the table and her neighbor finally came and help him up and called EMS. No acute trauma was obvious per imaging. Consult is for mild troponin elevation but reported no cardiac symptoms. He does have hx of PAFIB but denies any palpitations, no abd pain, no nausea, vomiting or diarrhea. He did get started on primidone over a week ago by his neurologist for his tremors. He still drives and does his own chores but presently significantly weak and lives alone and gets checked by her daughter from at times. Again no exertional chest pain nor RUCKER. No pulmonary symptoms and no fever or chills. PAST MEDICAL HISTORY Cardiovascular: AFIB (paroxysmal noted in 2011), CAD, CHF, HTN, ME (STEMI in 2011 involving the LAD), Hyperlipidemia, Other (cardiomyopathy; right carotid artery disease) Pulmonary: COPD, Other (covid-19 last yr ) CENTRAL NERVOUS SYSTEM: Other (essential tremors) GI: Constipation, Diverticulosis, GERD, GI bleed Heme/Onc: Anemia NOS, Other (bilateral DVT 2011) Hepatobiliary: No pertinent hx Musculoskeletal: Osteoarthritis Rheumatologic: No pertinent hx Infectious disease: Other (shingles?, C-diff) ENT: Other (central retinal artery occlusion in 2013) Renal/: Chronic renal insuff, Benign prostatic enlarg. Endocrine: Osteopenia Dermatology: No pertinent hx PAST SURGICAL HISTORY Past Surgical History: Appendectomy, Other (PCI/BMS initially to LAD then staged RCA in 10/2011 then in 2012, IVC filter; left eye surgery from vitreous hemmorhage) FAMILY HISTORY Family History noncontributory SOCIAL HISTORY Smoke: Quit ALCOHOL: none Drugs: None Lives: with Family ALLERGIES ALLERGIES: Coded Allergies: Sulfa (Sulfonamide Antibiotics) (Verified Allergy, Severe, 02/24/20) doesn't remember but it almost killed him clopidogrel (Verified Allergy, Intermediate, 02/24/20) valsartan (Verified Allergy, Intermediate, 02/24/20) warfarin (Verified Allergy, Intermediate, 02/24/20) ROS Review of System 14 point ROS evlauated with pertinent positives noted per HPI PHYSICAL EXAM General: Alert, Oriented X3, Cooperative, No acute distress HEENT: Atraumatic, Mucous membr. moist/pink Lungs: Clear to auscultation, Normal air movement Heart: Regular rate (SR), Normal S1, Normal S2, Other (2/6 systolic murmur to LLS border) Abdomen: Soft, No tenderness Extremities: No cyanosis, No edema Skin: No breakdown, No significant lesion Neuro: Normal speech, Sensation intact Psych/Mental Status: Mental status NL, Mood NL MUSCULOSKELETAL: Osteoarthritic changes both hands VITALS/I&O VITALS/I&O: Vital Signs Date Time Temp Pulse Resp B/P (MAP) Pulse Ox O2 Delivery O2 Flow Rate FiO2 06/28/20 08:24 Room Air 06/28/20 07:00 99.0 65 18 114/51 (72) 93 99.0 I & O 06/27/20 06/27/20 06/28/20 15:00 23:00 07:00 Intake Total 480 ml Balance 480 ml LABS Lab: Laboratory Tests Test 06/27/20 15:05 06/27/20 15:35 06/27/20 19:03 06/27/20 19:16 Lactic Acid Level 0.9 mmol/L (0.4-2.0) White Blood Count 6.2 x10^3/uL (4.0-11.0) Red Blood Count 3.33 x10^6/uL (4.30-5.70) L Hemoglobin 10.1 g/dL (13.0-17.5) L Hematocrit 31.0 % (39.0-53.0) L Mean Corpuscular Volume 93 fL (79-100) Mean Corpuscular Hemoglobin 31 pg (25-35) Mean Corpuscular Hemoglobin Concent 33 g/dL (31-37) Red Cell Distribution Width 14.4 % (11.5-14.5) Platelet Count 158 x10^3/uL (140-400) Neutrophils (%) (Auto) 68 % (31-73) Lymphocytes (%) (Auto) 16 % (24-48) L Monocytes (%) (Auto) 10 % (0-9) H Eosinophils (%) (Auto) 5 % (0-3) H Basophils (%) (Auto) 1 % (0-3) Neutrophils # (Auto) 4.2 x10^3/uL (1.8-7.7) Lymphocytes # (Auto) 1.0 x10^3/uL (1.0-4.8) Monocytes # (Auto) 0.6 x10^3/uL (0.0-1.1) Eosinophils # (Auto) 0.3 x10^3/uL (0.0-0.7) Basophils # (Auto) 0.0 x10^3/uL (0.0-0.2) Prothrombin Time 13.0 SEC (11.7-14.0) Prothrombin Time INR 1.0 (0.8-1.1) Activated Partial Thromboplast Time 30 SEC (24-38) Sodium Level 140 mmol/L (136-145) Potassium Level 4.0 mmol/L (3.5-5.1) Chloride Level 104 mmol/L (98-107) Carbon Dioxide Level 29 mmol/L (21-32) Anion Gap 7 (6-14) Blood Urea Nitrogen 27 mg/dL (8-26) H Creatinine 2.2 mg/dL (0.7-1.3) H Estimated GFR (Cockcroft-Gault) 28.5 BUN/Creatinine Ratio 12 (6-20) Glucose Level 84 mg/dL (70-99) Calcium Level 9.0 mg/dL (8.5-10.1) Magnesium Level 2.2 mg/dL (1.8-2.4) Total Bilirubin 0.6 mg/dL (0.2-1.0) Aspartate Amino Transferase (AST) 28 U/L (15-37) Alanine Aminotransferase (ALT) 22 U/L (16-63) Alkaline Phosphatase 46 U/L (46-116) Troponin I Quantitative 0.069 ng/mL (0.000-0.055) 0.067 ng/mL (0.000-0.055) Total Protein 6.4 g/dL (6.4-8.2) Albumin 3.3 g/dL (3.4-5.0) L Albumin/Globulin Ratio 1.1 (1.0-1.7) Lipase 113 U/L (73-393) Ethyl Alcohol Level < 10 mg/dL (0-10) Urine Collection Type Unknown Urine Color Yellow Urine Clarity Clear Urine pH 7.0 (<5.0-8.0) Urine Specific Gantt 1.020 (1.000-1.030) Urine Protein 30 mg/dL (NEG-TRACE) Urine Glucose (UA) Negative mg/dL (NEG) Urine Ketones (Stick) Trace mg/dL (NEG) Urine Blood Negative (NEG) Urine Nitrite Negative (NEG) Urine Bilirubin Negative (NEG) Urine Urobilinogen Dipstick 0.2 mg/dL (0.2 mg/dL) Urine Leukocyte Esterase Negative (NEG) Urine RBC Occ /HPF (0-2) Urine WBC 0 /HPF (0-4) Urine Bacteria 0 /HPF (0-FEW) Urine Mucus Slight /LPF Urine Opiates Screen Neg (NEG) Urine Methadone Screen Neg (NEG) Urine Barbiturates Neg (NEG) Urine Phencyclidine Screen Neg (NEG) Urine Amphetamine/Methamphetamine Neg (NEG) Urine Benzodiazepines Screen Neg (NEG) Urine Cocaine Screen Neg (NEG) Urine Cannabinoids Screen Neg (NEG) Urine Ethyl Alcohol Neg (NEG) Laboratory Tests 06/27/20 15:35 Laboratory Tests 06/27/20 15:35 ECHOCARDIOGRAM ECHOCARDIOGRAM 11/12/2017 [facility] The LV EF is about 35-40%. A large area involving the LV apex appears thin and akinetic. The LA is slightly enlarged. Mild MR seen. Left Ventricle Normal size and wall thickness. Moderately decreased ejection fraction. Grade I (mild) left ventricular diastolic dysfunction. Right Ventricle Normal size, wall thickness, ejection fraction and septal motion. Left Atrium Mildly dilated. Right Atrium Normal size. IVC/SVC Normal central venous pressure (0-5 mm Hg). Mitral Valve Normal valve structure. No stenosis. Mild regurgitation. Tricuspid Valve Normal valve structure. No stenosis. Trace regurgitation. Aortic Valve Normal valve structure. No stenosis. No regurgitation. Pulmonary The pulmonic valve was not seen well but no Doppler evidence of stenosis. Trace regurgitation. Aorta Normal aorta. Pericardium No pericardial effusion. STRESS TEST STRESS TEST FINDINGS: 11/12/2017 [facility] Pharmacological Stress Electrocardiogram: The patient's resting heart rate was 63 bpm and the resting blood pressure was 126/70. The patients peak stress heart rate was 86 bpm and the peak stress blood pressure was 100/56. The patient experienced no chest pain. The resting ECG shows Normal sinus rhythm. Following Regadenoson infusion there are no new diagnostic ECG changes. Conclusion: Pharmacologic stress ECG is negative for ischemia. Bdaxpaijb-io-Usbwtfmssb Count Ratio: 0.38 (normal = or < 0.52). Scintigraphic Findings: Planar images reveal the left ventricular cavity is dilated. There is normal pulmonary tracer uptake. There is no significant attenuation present. No transient ischemic dilation is present. Tomographic images were reconstructed in three orthogonal views. There is a large severe intensity defect involving the mid and distal anterior wall, apical septum, LV apex and inferoapex. Minimal improvement is noted in the mid anterior wall on the resting images. The other parts of the defect remain predominantly unchanged at rest. The true LV apex appears to be nonviable. Polar coordinate map identifies a large area of predominant injury involving the mid and distal anterior wall, apical septum, LV apex and the inferoapical region. TID Ratio: 1.08 (normal <1.36). Summed Stress Score: 28 , Summed Rest Score: 22 Regional Wall Thickening and Motion Post Stress: A large area involving the LV apex appears to be akinetic. Left Ventricular Ejection Fraction = 39 %. Left Ventricular End Diastolic Volume: 166 mL SUMMARY/OPINION: This study is abnormal with evidence of a large area of predominantly injury pattern involving the LAD territory. Minimal reversibility is present in the mid anterior wall. The LV systolic function is moderately reduced. Lung uptake of tracer was within normal limits. There are no prior studies available for comparison. ASSESSMENT/PLAN ASSESSMENT/PLAN 1. Nontraumatic mechanical fall/weakness: no syncopal spell 2. LLE pain: likely from lumbar radiculopathy with noted spinal stenosis/HNP vs DVT vs strain from fall, defer to PCP 3. CARMELINA on CKD3-4: poor PO hydration yesterday 4. COPD: stable 5. Known ICM: last known EF at 35-40% last noted in 2018 6. Hx of GIB 7. Hx of remote PE/DVT: IVC filter in place 8. HTN: controlled 9. HLP 10. COPD: stable 11. Chronic systolic/diastolic CHF: compensated 12. Remote PAFIB: SR 13. Mild troponin elevation: peaked at 0.06, no acute changes to EKG by comparison, possibly demand mediated type 2 with fall and renal insufficiency. No cardiopulmonary symptoms. 14. CAD: STEMI in 2012 with BMS to LAD and RCA Recommendations 1. Will obtain TTE and note EF, BMP, TSH, DDIMER and FLP. Consider venous doppler particularly to LLE if DDIMER is elevated 2. Poor candidate for anticoagulation therapy due to predisposition to GI bleed 3. Check for orthostasis. Push PO fluids. 4. Continue ASA, statin and BB 5. Consider for outpt stress test. Will need to reestablish with Dr. Shetty at [facility] cardiology. BARRERA KLINE APRN Jun 28, 2020 08:59
[2020-06-28] MEDS: ALBUTEROL SULFATE 2.5 MG/3 ML NEBU. NEB SCH ×4 (09:00→20:00)
[2020-06-28] MEDS: BUDESONIDE 0.5 MG/2 ML NEBU. NEB SCH ×2 (09:00→20:00)
[2020-06-28] MEDS ORDERED: ACETAMINOPHEN 325 MG TABLET. PO PRN (09:15)
--- NOTE | 2020-06-28 09:53 | PDOC ---
Provider Note Date of Service: DATE: 06/28/20 TIME: 09:52 Provider Note Patient seen. History and Physical dictated. See dictation# [id number]. Justifications for Admission Other Justification MARCELLUS FIERRO MD Jun 28, 2020 09:53
[2020-06-28] MEDS ORDERED: methylPREDNISolone SOD SUCC PF 40 MG/ML VIAL. IV ONE (10:00)
--- NOTE | 2020-06-28 10:28 | HP ---
ADMIT DATE: 06/27/2020 HISTORY OF PRESENT ILLNESS: This 85-year-old male who has been admitted to this institution several times in the past and who has a history of COPD, previous history of COVID-19 infection, chronic kidney disease stage 3, COPD, coronary artery disease, carotid artery disease, generalized weakness, osteoarthritis and multiple other medical problems, fell at home. He states that he fell after his family left around 5:00 p.m., but is not sure of the days. He thinks that he was on the ground for many, many hours including all night. He is not sure if he fell yesterday or the day before. He was admitted to the hospital yesterday evening because of his weakness, fall as well as elevated troponin suggestive of non-ST elevation myocardial infarction. REVIEW OF SYSTEMS: At present time, the patient is a very poor historian. He is forgetful. His mental status is worse than his baseline. He does not remember things clearly and unable to provide much information. He denies any chest pains or palpitations. He is not sure about cough and dyspnea, but he has been coughing and also has some wheezing. Unable to do full systems review. Systems review as noted in the history of present illness. He does admit to being weak and tired. Other systems reviewed and are negative. PAST MEDICAL HISTORY: The patient was last admitted here in 03/2020. At that time, he had fever. He was treated with antibiotics. Blood cultures were positive for Staph hominis 2 and they were thought to be due to contamination. His COVID-19 test was negative. He had acute renal failure with chronic kidney disease stage 3 and was given IV fluids. His baseline creatinine is 1.6. He has a history of coronary artery disease, old myocardial infarction, DVT in 2011, C. diff colitis in 2012, small-bowel obstruction in 2011, hypertension with chronic kidney disease stage III, benign prostatic hypertrophy, coronary artery stent placed in 2011, carotid artery disease, had coronary artery disease with 2 stents placed in [facility] in 2011, gastroesophageal reflux disease, hemorrhoids, lumbar spinal stenosis of L4-L5, macular degeneration of left eye and dry eyes, osteoarthritis of multiple sites, history of Staph bacteremia that was again a contaminant during an admission in 2018. PAST SURGICAL HISTORY: The patient had 2 stents placed in coronary artery in 2011, L5-S1 decompression with microdiskectomy and right L4-L5 decompression, partial colectomy, appendectomy, tonsillectomy and hemorrhoidectomy. ALLERGIES: THE PATIENT IS ALLERGIC TO CLARITHROMYCIN THAT CAUSES RASH, CLOPIDOGREL CAUSES RASH, CODEINE AND CYCLOBENZAPRINE CAUSES ITCHING, LISINOPRIL AND PRASUGREL CAUSE NAUSEA MODERATE TO SEVERE, SULFA ANTIBIOTICS AND TIZANIDINE CAUSE ITCHING MILD TO MODERATE. FAMILY HISTORY: Father had coronary artery disease. Mother had coronary artery disease. SOCIAL HISTORY: The patient is an ex-cigarette smoker. No history of alcoholism or drug abuse. MEDICATIONS: Reviewed and reconciled. PHYSICAL EXAMINATION: GENERAL: The patient is an elderly male who is alert, forgetful and not in acute distress. 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 The patient is chronically ill and forgetful, not in any acute distress. He is very weak. EYES: Pupils reacting to light. Conjunctivae pale. Sclerae muddy. HENT: Partial exam, mild congestion of throat. NECK: Supple. JVP normal. No thyromegaly. Trachea midline. SKIN: Warm and dry. Unable to do full exam as he is extremely weak. LUNGS: Bilateral wheezing and decreased breath sounds at bases. CARDIOVASCULAR: S1, S2 regular. ABDOMEN: Soft, nontender, no guarding, no rigidity. Bowel sounds present. EXTREMITIES: No edema. CENTRAL NERVOUS SYSTEM: Forgetful, very weak in general and not moving extremities well. LABORATORY FINDINGS: Lactic acid level is 0.9. WBC count 6.2, hemoglobin 10.1. Sodium 140, potassium 4, BUN 27, creatinine 2.2 on admission. Troponin 0.069, calcium 9, magnesium 2.2. AST 28, ALT 22, albumin 3.3. Troponin 0.069 and 0.067, lipase 113. Urine drug screen is negative. Urinalysis is negative. CT scan of chest, abdomen and pelvis show patchy parenchymal opacities in the left upper lobe, infrarenal abdominal aortic aneurysm 3.2 cm, bladder diverticula, colonic diverticulosis without diverticulitis. CT scan of head and cervical spine are negative for any acute injuries or abnormalities. CT scan of lumbar and thoracic spine show trace height loss of the L3 vertebral body. Multilevel degenerative changes. EKG shows likely old anterior infarct. IMPRESSION: 1. Acute bronchitis. 2. Exacerbation of chronic obstructive pulmonary disease. 3. Non-ST elevation myocardial infarction, likely due to type 2 strain due to demand ischemia. 4. Recurrent falls. 5. Check for rhabdomyolysis. Check CPK. 6. Acute renal failure with chronic kidney disease 3. His baseline creatinine is around 1.6. 7. Coronary artery disease, history of 2 stents placed. 8. History of diabetes mellitus type 2. 9. Hypertension with chronic kidney disease 3, baseline creatinine 1.6. 10. Physical deconditioning. 11. Acute metabolic encephalopathy. 12. Carotid artery disease. 13. Osteoarthritis. 14. History of L3 compression fracture. 15. Anemia. 16. Anxiety. PLAN: 1. Acute bronchitis. Start IV Rocephin and Zithromax. I will consult Dr. Ribeiro for pulmonary evaluation and management and Dr. Darrius Dye for Infectious Disease evaluation and management. Also, check blood cultures x 2. Check for COVID-19 infection. This was discussed with the staff. 2. Acute renal failure with chronic kidney disease 3. Start IV fluids, IV normal saline, but give it gently and cautiously due to history of fluid retention and coronary artery disease. 3. Recurrent falls. Order physical therapy and occupational therapy. Consult Dr. Bass for rehab evaluation and management. 4. Check CPK and repeat labs in a.m. Discussed with staff. I will also start him on IV steroids, low dose. He is on prednisone 10 mg daily at home. We will hold that for now. For details, please refer to the orders. Prognosis of this patient is very poor due to his multiple medical problems. MARCELLUS FIERRO MD DR: TEMITOPE/lory JOB#: [id number] / [id number]
[2020-06-28] MEDS: FLUTICASONE 50MCG/NASAL SPRAY 16GM BOTTLE. NS SCH (10:39)
[2020-06-28] MEDS: MULTIVITAMIN with MINERAL TABLET. PO SCH (10:41)
[2020-06-28] MEDS: PANTOPRAZOLE 40 MG TABLET.DR. PO SCH (10:41)
[2020-06-28] MEDS: CYANOCOBALAMIN (VITAMIN B-12) 1,000 MCG TABLET. PO SCH (10:41)
[2020-06-28] MEDS: CALCIUM CARB/VIT D3 500/200 TABLET. PO SCH (10:42)
[2020-06-28] MEDS: ASPIRIN ENTERIC COATED 81 MG TABLET.DR. PO SCH (10:42)
[2020-06-28] MEDS: HEPARIN for SUB-Q USE 5,000 UNIT/ML VIAL. SQ SCH ×2 (10:43→20:44)
[2020-06-28] MEDS: DICLOFENAC SODIUM 1% TOPICAL GEL 100GM TUBE. TP SCH ×2 (10:46→20:46)
[2020-06-28] MEDS: hydrALAZINE 25 MG TABLET PO SCH ×2 (10:51→20:39)
[2020-06-28] MEDS: CARVEDILOL 3.125 MG TABLET. PO SCH ×2 (10:51→16:51)
[2020-06-28] MEDS ORDERED: AZITHROMYCIN 500 MG in IV NORMAL SALINE 250ML 250 ML IV SCH (11:00)
--- NOTE | 2020-06-28 11:19 | CONS ---
DATE OF CONSULTATION: PULMONARY CONSULTATION ATTENDING PHYSICIAN: Lucía Lopez MD. REASON FOR CONSULTATION: COPD. HISTORY OF PRESENT ILLNESS: The patient is an 85-year-old male who has past medical history of COPD, history of previous COVID-19 infection, history of CKD stage 3, coronary artery disease. The patient was brought into the hospital after he fell. He denies any shortness of breath. No cough. He is currently on room air. He is not on home oxygen. I have reviewed the patient's CT chest on admission. The patient has evidence of some pleural parenchymal scarring in the upper lobes. Otherwise, no definite pneumonic consolidation seen. I have been asked to see him for further evaluation. PAST MEDICAL HISTORY: Significant for history of previous COVID-19 infection, history of CKD, history of COPD, history of coronary artery disease. PAST SURGICAL HISTORY: Two stents in the past, history of L4-L5 decompression, history of partial colectomy, appendectomy, tonsillectomy and hemorrhoidectomy. ALLERGIES: SULFA, PLAVIX, VALSARTAN AND WARFARIN. REVIEW OF SYSTEMS: Ten-point system obtained. Pertinent positives discussed in my history of present illness, otherwise noncontributory. All systems that were negative were reviewed as well. MEDICATIONS: Reviewed as listed in the [facility]. SOCIAL HISTORY: Quit tobacco 30 years ago. Prior to that, smoked for 30 years. FAMILY HISTORY: Noncontributory to lungs. PHYSICAL EXAMINATION: VITAL SIGNS: Reviewed. T-max of 99.9. Blood pressure is stable. NECK: Supple. LUNGS: Clear. CARDIOVASCULAR: With a regular rate. ABDOMEN: Soft, nontender. EXTREMITIES: With 1+ pitting edema. LABORATORY DATA: Reviewed. White cell count 6.2, hemoglobin 10.1 and platelets are 158. BUN 27, creatinine 2.2. Troponin 0.069. Urine drug screen negative. Urinalysis negative. IMPRESSION: 1. The patient with chronic obstructive pulmonary disease from 30 years of tobacco use. Clinically, compensated. Currently on room air. 2. Abnormal CT chest with chronic appearing pleural parenchymal scarring in the upper lobes. No signs of acute infection. 3. Low-grade fever. Unlikely pulmonary source. Follow PCP's recommendation. Currently on antibiotics. 4. Status post fall with no obvious fractures. 5. Chronic kidney disease. RECOMMENDATIONS: 1. The patient's pulmonary status is currently stable. 2. P.r.n. oxygen. 3. Monitor renal function. 4. Empiric antibiotic per PCP. 5. Monitor for any further fever. 6. Discussed with RN. Overall, pulmonary status is stable. We will be available for any further recommendations. At his age, I do not see a need for any followup CT chest in future. WESTON VÁSQUEZ MD DR: TYE/lory JOB#: [id number] / [id number]
[2020-06-28] MEDS: cefTRIAXone IV Push 1 GM VIAL. IVP SCH (11:20)
[2020-06-28] MEDS: IV NORMAL SALINE 1000ML BAG 1,000 ML IV SCH (11:20)
--- NOTE | 2020-06-28 11:29 | CONS ---
DATE OF CONSULTATION: 06/28/2020 REFERRING PHYSICIAN: Dr. Lopez. REASON FOR CONSULTATION: Febrile illness. HISTORY OF PRESENT ILLNESS: An 85-year-old male with history of COVID-19, history of COVID vaccination, anemia, bronchitis, CHF, COPD, history of DVT, hyperlipidemia, hypertension, history of ME, history of CKD, presented to the ER with complaints of generalized weakness and achiness, mainly in the lower extremity. The patient denies any fevers, chills, nausea, vomiting. Appetite is poor. Denies any symptoms, nausea, vomiting, diarrhea, abdominal pain. Denies any history of sick contact. His temperature was 99.9, white count was normal with normal lactate. Creatinine of 2.2. Troponin of 0.069, albumin of 3.3. UA negative. Head CT showed no acute intracranial abnormality. Lumbar spine showed no evidence of acute intrathoracic, abdominal or pelvic trauma, patchy parenchymal opacities, left upper lobe, may represent infectious/inflammatory changes, infrarenal abdominal aortic aneurysm 3.2 cm, bladder diverticula, colonic diverticulosis without diverticulitis, decreased bone density, right hepatic cyst, multiple DJD. The patient is on ceftriaxone and azithromycin. ID consultation has been requested for further evaluation and treatment. PAST MEDICAL HISTORY: Severe COPD, history of COVID-19, treated at [facility], recurrent bronchitis, anemia, CKD, benign prostatic hypertrophy, coronary artery disease, history of ME, history of DVT, history of small bowel obstruction, carotid artery disease, GERD, hemorrhoids, hypertension, lumbar spinal stenosis, macular degeneration, history of Staphylococcus bacteremia. PAST SURGICAL HISTORY: Stent, lumbar decompression surgery with microdiskectomy, partial colectomy, appendectomy, tonsillectomy, hemorrhoidectomy. ALLERGIES: CLARITHROMYCIN CAUSING RASH, CLOPIDOGREL, CODEINE, CYCLOBENZAPRINE, LISINOPRIL, PRASUGREL, SULFA ANTIBIOTICS, TIZANIDINE. FAMILY HISTORY: Noncontributory. SOCIAL HISTORY: Ex-smoker, no alcohol, no drugs. CURRENT MEDICATIONS: Reviewed. PHYSICAL EXAMINATION: VITAL SIGNS: Temperature 99, T-max 99.9, pulse 65, respiratory rate 18, blood pressure 114/51, oxygen saturation 93% on room air. GENERAL: Alert, awake, hard of hearing male, lying in bed, appears weak, in no acute distress. HEENT: Normocephalic, atraumatic, anicteric. Oral mucosa dry. NECK: Supple, no JVD. LUNGS: Clear bilaterally. No wheezing. HEART: S1, S2, no murmurs. ABDOMEN: Soft, nontender, nondistended. EXTREMITIES: No edema, no cyanosis. DERMATOLOGIC: Warm, dry. No generalized rash. NEUROLOGIC: Alert, awake, hard of hearing, generalized weakness. PSYCHIATRIC: Calm and cooperative. LABORATORY DATA: WBC 6.2, hemoglobin 10.1, hematocrit 31.0, platelets 158. Sodium 140, potassium 4.0, chloride 104, bicarbonate 29, BUN 27, creatinine 2.0, glucose 84. Lactate 0.9. Troponin 0.067. Albumin 3.3. MICROBIOLOGY: pending. IMAGING: Head and cervical CT as above, lumbar CT as above, thoracic CT as above. Chest and abdomen and pelvis CT as above. IMPRESSION: 1. Generalized weakness. 2. Low-grade febrile illness. 3. Chronic kidney disease. 4. Severe chronic obstructive pulmonary disease. 5. History of COVID-19, treated at [facility] 03/2020. 6. Coronary artery disease. 7. Diabetes mellitus. 8. Physical deconditioning. 9. Troponin elevation. RECOMMENDATIONS: 1. Continue current antibiotics. 2. Follow up labs and cultures. 3. Continue supportive care. 4. Maintain aspiration precaution. 5. Follow up [facility] Thank you for allowing me to participate in this patient's care. If you have any questions, do not hesitate to contact me. AMBER CARRASQUILLO MD DR: CORY/lory JOB#: [id number] / [id number]
[2020-06-28 12:15] LABS: CALCIUM 8.3 mg/dL (8.5-10.1); CREATININE 2.3 mg/dL (0.7-1.3); POTASSIUM 4.1 mmol/L (3.5-5.1)
[2020-06-28 12:50] LABS: CHOLESTEROL/HDL RATIO 2.7
--- NOTE | 2020-06-28 18:04 | CONS ---
DATE OF CONSULTATION: 06/28/2020 ATTENDING PHYSICIAN: Lucía Lopez MD REASON FOR CONSULTATION: The patient was seen at the request of Dr. Lopez for rehab evaluation. HISTORY OF PRESENT ILLNESS: This is an 85-year-old male known to me, last time I saw him is in April. The patient was admitted last evening after he fell at home. He fell around 5:00 p.m. not sure what day. The patient was found in the Emergency Room with generalized weakness with slightly elevated troponin suggestive of non-ST segment elevated myocardial infarction. The patient with known chronic obstructive pulmonary disease, chronic lower back pain from degenerative disk disease and degenerative joint disease of lumbar vertebrae, also COVID-19 infection last year, had vaccines given, also chronic kidney disease stage 3, coronary artery disease, carotid artery disease, osteoarthritis, frequent falls. The patient was treated during his hospitalization in April of this year for acute renal failure superimposed on chronic kidney disease. He also had old myocardial infarction, deep venous thrombosis, C. difficile colitis, small-bowel obstruction, hypertension, benign prostatic hypertrophy, coronary artery stent placed in 2011, gastroesophageal reflux disease, hemorrhoids, macular degeneration of left eye, dry eyes, staph bacteremia in the past, possible contaminant in 2019. ALLERGIES: HE IS KNOWN ALLERGIC TO CLARITHROMYCIN, PLAVIX, CODEINE, CYCLOBENZAPRINE, LISINOPRIL, PRASUGREL, SULFA, TIZANIDINE. SOCIAL HISTORY: He lives alone. The patient has been to jail care unit during his last hospitalization as per I remember. He walked for about 250 feet with roller walker with Physical Therapy at that time. The patient is being reevaluated for COVID-19 at the present time. PHYSICAL EXAMINATION: Today revealed an elderly male. He is alert, oriented to place and person, follows commands appropriately, moves all 4 extremities voluntarily where he had generalized muscle weakness. Deep tendon reflexes are decreased overall with absent ankle jerks and he had equal perception of touch and pinprick sensation bilaterally. The patient had crepitus on range of motion of his knee joints without any obvious knee joint effusion. I have not tested his mobility skills at present time. ASSESSMENT: Elderly male with chronic lower back pain with recent exacerbation after a fall. The patient with known degenerative disk disease and degenerative joint disease of lumbar vertebrae with lumbar spinal stenosis, chronic kidney disease, chronic obstructive pulmonary disease, COVID-19 infection last year, coronary artery disease, status post stenting, diabetes mellitus with peripheral neuropathy, chronic constipation. RECOMMENDATIONS: Agree with the plan for physical therapy and occupational therapy to get him up as tolerated, back to jail care unit if he qualifies and has days left out. Dr. Lopez, I appreciate asking me to participate in the care of this interesting patient. I will be glad to see him for followup with you on as needed basis. ARI PORTILLO MD DR: RHETT/lory JOB#: [id number] / [id number]
[2020-06-28] MEDS: MONTELUKAST SODIUM 10 MG TABLET. PO SCH (20:37)
[2020-06-28] MEDS: MIRTAZAPINE 7.5 MG TABLET. PO SCH (20:37)
[2020-06-28] MEDS: DOXAZOSIN MESYLATE 4 MG TABLET. PO SCH (20:38)
[2020-06-28] MEDS: SIMVASTATIN 20 MG TABLET PO SCH (20:44)
[2020-06-29] MEDS: IV NORMAL SALINE 1000ML BAG 1,000 ML IV SCH ×2 (00:23→12:04)
[2020-06-29 03:00] VITALS: BP 111/43
[2020-06-29 05:43] LABS: BASO % 0 % (0-3); EOS % 2 % (0-3); HEMATOCRIT 26.4 % (39.0-53.0); HEMOGLOBIN 8.9 g/dL (13.0-17.5); LYMPH # 1.1 x10^3/uL (1.0-4.8); LYMPH % 20 % (24-48); MEAN CORPUSCULAR HEMOGLOBIN 31 pg (25-35); MEAN CORPUSCULAR HGB CONC 34 g/dL (31-37); MEAN CORPUSCULAR VOLUME 92 fL (79-100); MONO # 0.5 x10^3/uL (0.0-1.1); MONO % 9 % (0-9); NEUT # 3.8 x10^3/uL (1.8-7.7); NEUT % 69 % (31-73); PLATELET COUNT 154 x10^3/uL (140-400); RED BLOOD COUNT 2.88 x10^6/uL (4.30-5.70); RED CELL DISTRIBUTION WIDTH 14.2 % (11.5-14.5); WHITE BLOOD COUNT 5.4 x10^3/uL (4.0-11.0)
[2020-06-29 05:44] LABS: EOS # 0.1 x10^3/uL (0.0-0.7)
[2020-06-29 06:05] LABS: ALBUMIN 2.5 g/dL (3.4-5.0); ALBUMIN/GLOBULIN RATIO 0.9 (1.0-1.7); CALCIUM 7.7 mg/dL (8.5-10.1); GFR 31.8; POTASSIUM 4.2 mmol/L (3.5-5.1); TOTAL BILIRUBIN 0.3 mg/dL (0.2-1.0); TOTAL PROTEIN 5.4 g/dL (6.4-8.2)
[2020-06-29 07:00] VITALS: BP 146/75
[2020-06-29] MEDS: ALBUTEROL SULFATE 2.5 MG/3 ML NEBU. NEB SCH ×4 (07:19→20:50)
[2020-06-29] MEDS: BUDESONIDE 0.5 MG/2 ML NEBU. NEB SCH ×2 (07:19→20:50)
[2020-06-29] MEDS: PANTOPRAZOLE 40 MG TABLET.DR. PO SCH (08:42)
[2020-06-29] MEDS: hydrALAZINE 25 MG TABLET PO SCH ×2 (08:42→21:38)
[2020-06-29] MEDS: MULTIVITAMIN with MINERAL TABLET. PO SCH (08:42)
[2020-06-29] MEDS: CALCIUM CARB/VIT D3 500/200 TABLET. PO SCH (08:42)
[2020-06-29] MEDS: ASPIRIN ENTERIC COATED 81 MG TABLET.DR. PO SCH (08:42)
[2020-06-29] MEDS: CYANOCOBALAMIN (VITAMIN B-12) 1,000 MCG TABLET. PO SCH (08:42)
[2020-06-29] MEDS: CARVEDILOL 3.125 MG TABLET. PO SCH ×2 (08:42→17:14)
[2020-06-29] MEDS: HEPARIN for SUB-Q USE 5,000 UNIT/ML VIAL. SQ SCH ×2 (08:43→21:52)
[2020-06-29] MEDS: FLUTICASONE 50MCG/NASAL SPRAY 16GM BOTTLE. NS SCH (08:44)
[2020-06-29] MEDS: DICLOFENAC SODIUM 1% TOPICAL GEL 100GM TUBE. TP SCH ×2 (08:44→21:49)
--- NOTE | 2020-06-29 08:52 | PDOC ---
PROGRESS NOTES Date of Service DATE: 06/29/20 TIME: 08:48 Subjective Subjective He denies any low back pain at present. Objective Objective Vital Signs Date Time Temp Pulse Resp B/P (MAP) Pulse Ox O2 Delivery O2 Flow Rate FiO2 06/29/20 08:42 64 111/43 06/29/20 03:00 97.8 17 98 Room Air 97.8 Intake and Output 06/29/20 07:00 Intake Total 520 ml Output Total 200 ml Balance 320 ml Intake Oral 520 ml Output Urine Total 200 ml # Voids 4 # Bowel Movements 1 Physical Exam Physical Exam He is alert,supine in bed and seems to be comfortable and he moves all 4 extremities actively to commands. He did get up with physical therapy and walked for 15' at bedside and he requires more assistance with bed mobility. Assessment Assessment Problems Medical Problems: (1) Accidental fall Status: Acute (2) CKD (chronic kidney disease) Status: Acute (3) NSTEMI (non-ST elevated myocardial infarction) Status: Acute Plan Plan of Care To get him up as tolerated and to SNF when medically stable. Comment Review of Relevant I have reviewed the following items tawnya (where applicable) has been applied. Labs Laboratory Tests Test 06/27/20 15:05 06/27/20 15:35 06/27/20 19:03 06/27/20 19:16 Lactic Acid Level 0.9 mmol/L (0.4-2.0) White Blood Count 6.2 x10^3/uL (4.0-11.0) Red Blood Count 3.33 x10^6/uL (4.30-5.70) Hemoglobin 10.1 g/dL (13.0-17.5) Hematocrit 31.0 % (39.0-53.0) Mean Corpuscular Volume 93 fL (79-100) Mean Corpuscular Hemoglobin 31 pg (25-35) Mean Corpuscular Hemoglobin Concent 33 g/dL (31-37) Red Cell Distribution Width 14.4 % (11.5-14.5) Platelet Count 158 x10^3/uL (140-400) Neutrophils (%) (Auto) 68 % (31-73) Lymphocytes (%) (Auto) 16 % (24-48) Monocytes (%) (Auto) 10 % (0-9) Eosinophils (%) (Auto) 5 % (0-3) Basophils (%) (Auto) 1 % (0-3) Neutrophils # (Auto) 4.2 x10^3/uL (1.8-7.7) Lymphocytes # (Auto) 1.0 x10^3/uL (1.0-4.8) Monocytes # (Auto) 0.6 x10^3/uL (0.0-1.1) Eosinophils # (Auto) 0.3 x10^3/uL (0.0-0.7) Basophils # (Auto) 0.0 x10^3/uL (0.0-0.2) Prothrombin Time 13.0 SEC (11.7-14.0) Prothromb Time International Ratio 1.0 (0.8-1.1) Activated Partial Thromboplast Time 30 SEC (24-38) Sodium Level 140 mmol/L (136-145) Potassium Level 4.0 mmol/L (3.5-5.1) Chloride Level 104 mmol/L (98-107) Carbon Dioxide Level 29 mmol/L (21-32) Anion Gap 7 (6-14) Blood Urea Nitrogen 27 mg/dL (8-26) Creatinine 2.2 mg/dL (0.7-1.3) Estimated GFR (Cockcroft-Gault) 28.5 BUN/Creatinine Ratio 12 (6-20) Glucose Level 84 mg/dL (70-99) Calcium Level 9.0 mg/dL (8.5-10.1) Magnesium Level 2.2 mg/dL (1.8-2.4) Total Bilirubin 0.6 mg/dL (0.2-1.0) Aspartate Amino Transf (AST/SGOT) 28 U/L (15-37) Alanine Aminotransferase (ALT/SGPT) 22 U/L (16-63) Alkaline Phosphatase 46 U/L (46-116) Troponin I Quantitative 0.069 ng/mL (0.000-0.055) 0.067 ng/mL (0.000-0.055) Total Protein 6.4 g/dL (6.4-8.2) Albumin 3.3 g/dL (3.4-5.0) Albumin/Globulin Ratio 1.1 (1.0-1.7) Lipase 113 U/L (73-393) Ethyl Alcohol Level < 10 mg/dL (0-10) Urine Collection Type Unknown Urine Color Yellow Urine Clarity Clear Urine pH 7.0 (<5.0-8.0) Urine Specific [place] 1.020 (1.000-1.030) Urine Protein 30 mg/dL (NEG-TRACE) Urine Glucose (UA) Negative mg/dL (NEG) Urine Ketones (Stick) Trace mg/dL (NEG) Urine Blood Negative (NEG) Urine Nitrite Negative (NEG) Urine Bilirubin Negative (NEG) Urine Urobilinogen Dipstick 0.2 mg/dL (0.2 mg/dL) Urine Leukocyte Esterase Negative (NEG) Urine RBC Occ /HPF (0-2) Urine WBC 0 /HPF (0-4) Urine Bacteria 0 /HPF (0-FEW) Urine Mucus Slight /LPF Urine Opiates Screen Neg (NEG) Urine Methadone Screen Neg (NEG) Urine Barbiturates Neg (NEG) Urine Phencyclidine Screen Neg (NEG) Urine Amphetamine/Methamphetamine Neg (NEG) Urine Benzodiazepines Screen Neg (NEG) Urine Cocaine Screen Neg (NEG) Urine Cannabinoids Screen Neg (NEG) Urine Ethyl Alcohol Neg (NEG) Test 06/28/20 10:35 06/29/20 05:00 06/29/20 05:20 D-Dimer (Radha) 1.13 ug/mlFEU (0.00-0.50) Sodium Level 139 mmol/L (136-145) 139 mmol/L (136-145) Potassium Level 4.1 mmol/L (3.5-5.1) 4.2 mmol/L (3.5-5.1) Chloride Level 103 mmol/L (98-107) 105 mmol/L (98-107) Carbon Dioxide Level 29 mmol/L (21-32) 28 mmol/L (21-32) Anion Gap 7 (6-14) 6 (6-14) Blood Urea Nitrogen 25 mg/dL (8-26) 31 mg/dL (8-26) Creatinine 2.3 mg/dL (0.7-1.3) 2.0 mg/dL (0.7-1.3) Estimated GFR (Cockcroft-Gault) 27.0 31.8 Glucose Level 116 mg/dL (70-99) 106 mg/dL (70-99) Calcium Level 8.3 mg/dL (8.5-10.1) 7.7 mg/dL (8.5-10.1) Creatine Kinase 291 U/L (39-308) TV-Vgi-L-Type Natriuretic Peptide 4029 pg/mL (0-449) Triglycerides Level 71 mg/dL (0-150) Cholesterol Level 115 mg/dL (0-200) LDL Cholesterol, Calculated 59 mg/dL (0-100) VLDL Cholesterol, Calculated 14 mg/dL (0-40) Non-HDL Cholesterol Calculated 73 mg/dL (0-129) HDL Cholesterol 42 mg/dL (40-60) Cholesterol/HDL Ratio 2.7 Thyroid Stimulating Hormone (TSH) 1.212 uIU/mL (0.358-3.74) BUN/Creatinine Ratio 16 (6-20) Total Bilirubin 0.3 mg/dL (0.2-1.0) Aspartate Amino Transf (AST/SGOT) 23 U/L (15-37) Alanine Aminotransferase (ALT/SGPT) 19 U/L (16-63) Alkaline Phosphatase 36 U/L (46-116) Total Protein 5.4 g/dL (6.4-8.2) Albumin 2.5 g/dL (3.4-5.0) Albumin/Globulin Ratio 0.9 (1.0-1.7) White Blood Count 5.4 x10^3/uL (4.0-11.0) Red Blood Count 2.88 x10^6/uL (4.30-5.70) Hemoglobin 8.9 g/dL (13.0-17.5) Hematocrit 26.4 % (39.0-53.0) Mean Corpuscular Volume 92 fL (79-100) Mean Corpuscular Hemoglobin 31 pg (25-35) Mean Corpuscular Hemoglobin Concent 34 g/dL (31-37) Red Cell Distribution Width 14.2 % (11.5-14.5) Platelet Count 154 x10^3/uL (140-400) Neutrophils (%) (Auto) 69 % (31-73) Lymphocytes (%) (Auto) 20 % (24-48) Monocytes (%) (Auto) 9 % (0-9) Eosinophils (%) (Auto) 2 % (0-3) Basophils (%) (Auto) 0 % (0-3) Neutrophils # (Auto) 3.8 x10^3/uL (1.8-7.7) Lymphocytes # (Auto) 1.1 x10^3/uL (1.0-4.8) Monocytes # (Auto) 0.5 x10^3/uL (0.0-1.1) Eosinophils # (Auto) 0.1 x10^3/uL (0.0-0.7) Basophils # (Auto) 0.0 x10^3/uL (0.0-0.2) Magnesium Level 2.1 mg/dL (1.8-2.4) Laboratory Tests Test 06/28/20 10:35 06/29/20 05:00 06/29/20 05:20 D-Dimer (Radha) 1.13 ug/mlFEU (0.00-0.50) Sodium Level 139 mmol/L (136-145) 139 mmol/L (136-145) Potassium Level 4.1 mmol/L (3.5-5.1) 4.2 mmol/L (3.5-5.1) Chloride Level 103 mmol/L (98-107) 105 mmol/L (98-107) Carbon Dioxide Level 29 mmol/L (21-32) 28 mmol/L (21-32) Anion Gap 7 (6-14) 6 (6-14) Blood Urea Nitrogen 25 mg/dL (8-26) 31 mg/dL (8-26) Creatinine 2.3 mg/dL (0.7-1.3) 2.0 mg/dL (0.7-1.3) Estimated GFR (Cockcroft-Gault) 27.0 31.8 Glucose Level 116 mg/dL (70-99) 106 mg/dL (70-99) Calcium Level 8.3 mg/dL (8.5-10.1) 7.7 mg/dL (8.5-10.1) Creatine Kinase 291 U/L (39-308) WD-Inb-Q-Type Natriuretic Peptide 4029 pg/mL (0-449) Triglycerides Level 71 mg/dL (0-150) Cholesterol Level 115 mg/dL (0-200) LDL Cholesterol, Calculated 59 mg/dL (0-100) VLDL Cholesterol, Calculated 14 mg/dL (0-40) Non-HDL Cholesterol Calculated 73 mg/dL (0-129) HDL Cholesterol 42 mg/dL (40-60) Cholesterol/HDL Ratio 2.7 Thyroid Stimulating Hormone (TSH) 1.212 uIU/mL (0.358-3.74) BUN/Creatinine Ratio 16 (6-20) Total Bilirubin 0.3 mg/dL (0.2-1.0) Aspartate Amino Transf (AST/SGOT) 23 U/L (15-37) Alanine Aminotransferase (ALT/SGPT) 19 U/L (16-63) Alkaline Phosphatase 36 U/L (46-116) Total Protein 5.4 g/dL (6.4-8.2) Albumin 2.5 g/dL (3.4-5.0) Albumin/Globulin Ratio 0.9 (1.0-1.7) White Blood Count 5.4 x10^3/uL (4.0-11.0) Red Blood Count 2.88 x10^6/uL (4.30-5.70) Hemoglobin 8.9 g/dL (13.0-17.5) Hematocrit 26.4 % (39.0-53.0) Mean Corpuscular Volume 92 fL (79-100) Mean Corpuscular Hemoglobin 31 pg (25-35) Mean Corpuscular Hemoglobin Concent 34 g/dL (31-37) Red Cell Distribution Width 14.2 % (11.5-14.5) Platelet Count 154 x10^3/uL (140-400) Neutrophils (%) (Auto) 69 % (31-73) Lymphocytes (%) (Auto) 20 % (24-48) Monocytes (%) (Auto) 9 % (0-9) Eosinophils (%) (Auto) 2 % (0-3) Basophils (%) (Auto) 0 % (0-3) Neutrophils # (Auto) 3.8 x10^3/uL (1.8-7.7) Lymphocytes # (Auto) 1.1 x10^3/uL (1.0-4.8) Monocytes # (Auto) 0.5 x10^3/uL (0.0-1.1) Eosinophils # (Auto) 0.1 x10^3/uL (0.0-0.7) Basophils # (Auto) 0.0 x10^3/uL (0.0-0.2) Magnesium Level 2.1 mg/dL (1.8-2.4) Microbiology 06/27/20 Blood Culture - Preliminary, Resulted NO GROWTH AFTER 1 DAY Medications Current Medications Acetaminophen (Tylenol) 650 mg PRN Q6HRS PRN PO MILD PAIN 1-3; Start 06/28/20 at 09:15 Aspirin (Ecotrin) 81 mg DAILY PO Last administered on 06/29/20 08:42; Start 06/28/20 at 09:00 Carvedilol (Coreg) 3.125 mg BIDWMEALS PO Last administered on 06/29/20 08:42; Start 06/28/20 at 09:00 Cyanocobalamin (Vitamin B-12) 1,000 mcg DAILY PO Last administered on 06/29/20 08:42; Start 06/28/20 at 09:00 Diclofenac Sodium (Voltaren) 1 roz BID TP Last administered on 06/29/20 08:44; Start 06/28/20 at 09:00 Fluticasone Propionate (Flonase) 2 spray DAILY NS Last administered on 06/29/20 08:44; Start 06/28/20 at 09:00 Guaifenesin (Mucinex) 600 mg BID PO Last administered on 06/29/20 08:42; Start 06/28/20 at 09:00 Hydralazine HCl (Apresoline) 25 mg BID PO Last administered on 06/29/20 08:42; Start 06/28/20 at 09:00 Acetaminophen/ Hydrocodone Bitart (Lortab 7.5/325) 1 tab PRN Q6HRS PRN PO MODERATE - SEVERE PAIN; Start 06/28/20 at 09:15 Mirtazapine (Remeron) 7.5 mg HS PO Last administered on 06/28/20at 20:37; Start 06/28/20 at 21:00 Montelukast Sodium (Singulair) 10 mg HS PO Last administered on 06/28/20 20:37; Start 06/28/20 at 21:00 Simvastatin (Zocor) 20 mg HS PO Last administered on 06/28/20 20:44; Start 06/28/20 at 21:00 Albuterol Sulfate (Ventolin Neb Soln) 2.5 mg RTQID NEB ; Start 06/28/20 at 09:00 Budesonide (Pulmicort) 0.5 mg RTBID NEB ; Start 06/28/20 at 09:00 Calcium/Vitamin D (Oscal D 500mg/ 200uts) 1 tab DAILY PO Last administered on 06/29/20 08:42; Start 06/28/20 at 09:00 Doxazosin Mesylate (Cardura) 8 mg HS PO Last administered on 06/28/20at 20:38; Start 06/28/20 at 21:00 Multivitamins (Thera M Plus) 1 tab DAILY PO Last administered on 06/29/20at 08:42; Start 06/28/20 at 09:00 Pantoprazole Sodium (Protonix) 40 mg DAILYAC PO Last administered on 06/29/20 08:42; Start 06/28/20 at 09:00 Heparin Sodium (Porcine) (Heparin Sodium) 5,000 unit Q12HR SQ Last administered on 06/29/20at 08:43; Start 06/28/20 at 09:00 Methylprednisolone Sodium Succinate (SOLU-Medrol 40MG VIAL) 40 mg DAILY10 ONCE IV Last administered on 06/28/20at 10:43; Start 06/28/20 at 10:00; Stop 06/28/20 at 10:01; Status DC Ceftriaxone Sodium (Rocephin) 1 gm Q24H IVP Last administered on 06/28/20at 11:20; Start 06/28/20 at 10:00 Azithromycin 500 mg/Sodium Chloride 250 ml @ 250 mls/hr Q24H IV Last administered on 06/28/20at 11:21; Start 06/28/20 at 11:00 Sodium Chloride 1,000 ml @ 75 mls/hr [id number] IV Last administered on 06/29/20at 00:23; Start 06/28/20 at 09:45 Active Scripts Active Acyclovir 400 Mg Tablet 1 Tab PO BID Hydrocodone-Apap 7.5-325 (Hydrocodone Bit/Acetaminophen) 1 Tab Tablet 1 Tab PO PRN Q6HRS PRN 7 Days Tylenol (Acetaminophen) 325 Mg Tablet 650 Mg PO PRN Q6HRS PRN 30 Days Voltaren (Diclofenac Sodium) 100 Gm Gel..gram. 1 Roz TP BID 30 Days Vitamin B-12 (Cyanocobalamin (Vitamin B-12)) 1,000 Mcg Tablet 1,000 Mcg PO DAILY Reported Mucinex (Guaifenesin) 600 Mg Tablet.er 600 Mg PO BID Prednisone (Prednisone) 10 Mg Tablet 10 Mg PO DAILY Fluticasone Propionate Nasal [place] (Fluticasone Propionate) 16 Gm [place].susp 2 [place] NS DAILY Aspir-Low (Aspirin) 81 Mg Tablet. 1 Tab PO DAILY Doxazosin Mesylate 8 Mg Tablet 1 Tab PO HS Omeprazole 40 Mg Capsule. 1 Cap PO DAILY Calcium 500-Vit D3 600 Tablet (Calcium Carbonate/Vitamin D3) 1 Each Tablet 1 Each PO DAILY Singulair Tablet (Montelukast Sodium) 10 Mg Tablet 10 Mg PO HS Centrum Silver Tablet (Multivits-Min/Fa/Lycopene/Lut) 1 Each Tablet 1 Each PO DAILY Carvedilol (Carvedilol) 3.125 Mg Tablet 1 Tab PO BID Hydralazine Hcl 25 Mg Tablet 1 Tab PO BID Mirtazapine 7.5 Mg Tablet 7.5 Mg PO HS Simvastatin 20 Mg Tablet 20 Mg PO HS Symbicort 160-4.5 Mcg Inhaler (Budesonide/Formoterol Fumarate) 10.2 Gm Hfa.aer.ad 2 Inhaler IH BID Albuterol Sulfate Conc Neb Soln (Albuterol Sulfate) 2.5 Mg/0.5 Ml Vial.neb 2.5 Mg IH [id number] Vitals/I & O Vital Sign - Last 24 Hours 06/28/20 06/28/20 06/28/20 06/28/20 10:51 10:51 10:51 12:40 Temp 98.3 98.3 Pulse 65 64 65 65 Resp 20 B/P (MAP) 119/58 119/58 119/58 (78) 128/60 (82) Pulse Ox 96 O2 Delivery Room Air 06/28/20 06/28/20 06/28/20 06/28/20 15:42 16:51 19:00 20:00 Temp 98.2 97.8 98.2 97.8 Pulse 62 62 63 Resp 18 16 B/P (MAP) 120/60 (80) 120/60 128/67 (87) Pulse Ox 99 96 O2 Delivery Room Air Room Air Room Air 06/28/20 06/28/20 06/28/20 06/29/20 20:38 20:39 22:53 03:00 Temp 98.0 97.8 98.0 97.8 Pulse 63 63 65 64 Resp 18 17 B/P (MAP) 128/67 128/67 122/62 (82) 111/43 (65) Pulse Ox 95 98 O2 Delivery Room Air Room Air 06/29/20 06/29/20 08:42 08:42 Pulse 64 64 B/P (MAP) 111/43 111/43 Intake and Output 06/28/20 06/28/20 06/29/20 15:00 23:00 07:00 Intake Total 100 ml 300 ml 120 ml Output Total 200 ml Balance -100 ml 300 ml 120 ml Justifications for Admission Other Justification ARI PORTILLO MD Jun 29, 2020 08:52
--- NOTE | 2020-06-29 09:16 | PDOC ---
IM PROGRESS NOTES- Subjective Subjective Complaints of generalized weakness. Dyspnea is improving. Has occasional back pain. Objective Vitals/I&O Vital Signs Date Time Temp Pulse Resp B/P (MAP) Pulse Ox O2 Delivery O2 Flow Rate FiO2 06/29/20 08:42 64 111/43 06/29/20 07:00 97.9 26 98 Room Air 97.9 I & O 06/28/20 06/28/20 06/29/20 15:00 23:00 07:00 Intake Total 100 ml 300 ml 120 ml Output Total 200 ml Balance -100 ml 300 ml 120 ml Physical Exam Physical Exam General appearance - alert,chronically ill appearing, in mild respiratory distress and forgetful Mental Status - alert, forgetful Head - normal Chest -increased air entry, no wheezing. Heart - S1 and S2 normal Abdomen - soft, non tender, Neurological - alert and forgetful. Mental status is improving. Musculoskeletal -generalized weakness Extremities - no pedal edema Skin - warm and dry Labs Laboratory Tests Test 06/28/20 10:35 06/29/20 05:00 06/29/20 05:20 D-Dimer (Radha) 1.13 ug/mlFEU (0.00-0.50) H Sodium Level 139 mmol/L (136-145) 139 mmol/L (136-145) Potassium Level 4.1 mmol/L (3.5-5.1) 4.2 mmol/L (3.5-5.1) Chloride Level 103 mmol/L (98-107) 105 mmol/L (98-107) Carbon Dioxide Level 29 mmol/L (21-32) 28 mmol/L (21-32) Anion Gap 7 (6-14) 6 (6-14) Blood Urea Nitrogen 25 mg/dL (8-26) 31 mg/dL (8-26) H Creatinine 2.3 mg/dL (0.7-1.3) H 2.0 mg/dL (0.7-1.3) H Estimated GFR (Cockcroft-Gault) 27.0 31.8 Glucose Level 116 mg/dL (70-99) H 106 mg/dL (70-99) H Calcium Level 8.3 mg/dL (8.5-10.1) L 7.7 mg/dL (8.5-10.1) L Creatine Kinase 291 U/L (39-308) SE-Has-Z-Type Natriuretic Peptide 4029 pg/mL (0-449) H Triglycerides Level 71 mg/dL (0-150) Cholesterol Level 115 mg/dL (0-200) LDL Cholesterol, Calculated 59 mg/dL (0-100) VLDL Cholesterol, Calculated 14 mg/dL (0-40) Non-HDL Cholesterol Calculated 73 mg/dL (0-129) HDL Cholesterol 42 mg/dL (40-60) Cholesterol/HDL Ratio 2.7 Thyroid Stimulating Hormone (TSH) 1.212 uIU/mL (0.358-3.74) BUN/Creatinine Ratio 16 (6-20) Total Bilirubin 0.3 mg/dL (0.2-1.0) Aspartate Amino Transferase (AST) 23 U/L (15-37) Alanine Aminotransferase (ALT) 19 U/L (16-63) Alkaline Phosphatase 36 U/L (46-116) L Total Protein 5.4 g/dL (6.4-8.2) L Albumin 2.5 g/dL (3.4-5.0) L Albumin/Globulin Ratio 0.9 (1.0-1.7) L White Blood Count 5.4 x10^3/uL (4.0-11.0) Red Blood Count 2.88 x10^6/uL (4.30-5.70) L Hemoglobin 8.9 g/dL (13.0-17.5) L Hematocrit 26.4 % (39.0-53.0) L Mean Corpuscular Volume 92 fL (79-100) Mean Corpuscular Hemoglobin 31 pg (25-35) Mean Corpuscular Hemoglobin Concent 34 g/dL (31-37) Red Cell Distribution Width 14.2 % (11.5-14.5) Platelet Count 154 x10^3/uL (140-400) Neutrophils (%) (Auto) 69 % (31-73) Lymphocytes (%) (Auto) 20 % (24-48) L Monocytes (%) (Auto) 9 % (0-9) Eosinophils (%) (Auto) 2 % (0-3) Basophils (%) (Auto) 0 % (0-3) Neutrophils # (Auto) 3.8 x10^3/uL (1.8-7.7) Lymphocytes # (Auto) 1.1 x10^3/uL (1.0-4.8) Monocytes # (Auto) 0.5 x10^3/uL (0.0-1.1) Eosinophils # (Auto) 0.1 x10^3/uL (0.0-0.7) Basophils # (Auto) 0.0 x10^3/uL (0.0-0.2) Magnesium Level 2.1 mg/dL (1.8-2.4) Laboratory Tests 06/29/20 05:20 Laboratory Tests 06/28/20 10:35 06/29/20 05:00 Meds Current Medications Medications (Trade) Dose Ordered Sig/Juhi Route PRN Reason Start Time Stop Time Status Last Admin Dose Admin Mirtazapine (Remeron) 7.5 mg HS PO 06/28/20 21:00 06/28/20 20:37 Montelukast Sodium (Singulair) 10 mg HS PO 06/28/20 21:00 06/28/20 20:37 Simvastatin (Zocor) 20 mg HS PO 06/28/20 21:00 06/28/20 20:44 Doxazosin Mesylate (Cardura) 8 mg HS PO 06/28/20 21:00 06/28/20 20:38 Methylprednisolone Sodium Succinate (SOLU-Medrol 40MG VIAL) 40 mg DAILY10 ONCE IV 06/28/20 10:00 06/28/20 10:01 DC 06/28/20 10:43 Ceftriaxone Sodium (Rocephin) 1 gm Q24H IVP 06/28/20 10:00 06/28/20 11:20 Azithromycin 500 mg/Sodium Chloride 250 ml @ 250 mls/hr Q24H IV 06/28/20 11:00 06/28/20 11:21 Sodium Chloride 1,000 ml @ 75 mls/hr [id number] IV 06/28/20 09:45 06/29/20 00:23 Assessment Assessment 1. Acute bronchitis. 2. Exacerbation of chronic obstructive pulmonary disease. 3. Non-ST elevation myocardial infarction, likely due to type 2 strain due to demand ischemia. 4. Recurrent falls. 5. Check for rhabdomyolysis. Check CPK. 6. Acute renal failure with chronic kidney disease 3. His baseline creatinine is around 1.6. 7. Coronary artery disease, history of 2 stents placed. 8. History of diabetes mellitus type 2. 9. Hypertension with chronic kidney disease 3, baseline creatinine 1.6. 10. Physical deconditioning. 11. Acute metabolic encephalopathy. 12. Carotid artery disease. 13. Osteoarthritis. 14. History of L3 compression fracture. 15. Anemia. 16. Anxiety. PLAN: 1. Acute bronchitis. Start IV Rocephin and Zithromax. I will consult Dr. Ribeiro for pulmonary evaluation and management and Dr. Darrius Dye for Infectious Disease evaluation and management. Also, check blood cultures x 2. Check for COVID-19 infection. This was discussed with the staff. 2. Acute renal failure with chronic kidney disease 3. Start IV fluids, IV normal saline, but give it gently and cautiously due to history of fluid retention and coronary artery disease. BNP is 4029. BUN today is 31 and creatinine 2.0. Patient is clinically dry. 3. Recurrent falls. Order physical therapy and occupational therapy. Consult Dr. Bass for rehab evaluation and management. History of systolic congestive heart failure with ejection fraction of 35 to 40% previously. Echocardiogram pending Anemia-hemoglobin decreased to 8.9. 4. Check CPK and repeat labs in a.m. Discussed with staff. I will also start him on IV steroids, low dose. He is on prednisone 10 mg daily at home. We will hold that for now. For details, please refer to the orders. Prognosis of this patient is very poor due to his multiple medical problems. SNF screen Plan Plan For more details regarding further plans, please refer to the orders. Justifications for Admission Other Justification MARCELLUS FIERRO MD Jun 29, 2020 09:16
--- NOTE | 2020-06-29 09:36 | PDOC ---
CARDIO Progress Notes Date and Time Date of Service 06/29/20 Time of Evaluation 1145 Subjective Subjective: No Chest Pain, No shortness of breath, No Palpitations Vitals Vitals Vital Signs Date Time Temp Pulse Resp B/P (MAP) Pulse Ox O2 Delivery O2 Flow Rate FiO2 06/29/20 08:42 64 111/43 06/29/20 07:00 97.9 26 98 Room Air 97.9 Weight Weight [ ] Input and Output Intake and Output Intake and Output 06/29/20 07:00 Intake Total 520 ml Output Total 200 ml Balance 320 ml Intake Oral 520 ml Output Urine Total 200 ml # Voids 4 # Bowel Movements 1 Laboratory Labs Laboratory Tests Test 06/28/20 10:35 06/29/20 05:00 06/29/20 05:20 D-Dimer (Radha) 1.13 ug/mlFEU (0.00-0.50) Sodium Level 139 mmol/L (136-145) 139 mmol/L (136-145) Potassium Level 4.1 mmol/L (3.5-5.1) 4.2 mmol/L (3.5-5.1) Chloride Level 103 mmol/L (98-107) 105 mmol/L (98-107) Carbon Dioxide Level 29 mmol/L (21-32) 28 mmol/L (21-32) Anion Gap 7 (6-14) 6 (6-14) Blood Urea Nitrogen 25 mg/dL (8-26) 31 mg/dL (8-26) Creatinine 2.3 mg/dL (0.7-1.3) 2.0 mg/dL (0.7-1.3) Estimated GFR (Cockcroft-Gault) 27.0 31.8 Glucose Level 116 mg/dL (70-99) 106 mg/dL (70-99) Calcium Level 8.3 mg/dL (8.5-10.1) 7.7 mg/dL (8.5-10.1) Creatine Kinase 291 U/L (39-308) NP-Rsd-L-Type Natriuretic Peptide 4029 pg/mL (0-449) Triglycerides Level 71 mg/dL (0-150) Cholesterol Level 115 mg/dL (0-200) LDL Cholesterol, Calculated 59 mg/dL (0-100) VLDL Cholesterol, Calculated 14 mg/dL (0-40) Non-HDL Cholesterol Calculated 73 mg/dL (0-129) HDL Cholesterol 42 mg/dL (40-60) Cholesterol/HDL Ratio 2.7 Thyroid Stimulating Hormone (TSH) 1.212 uIU/mL (0.358-3.74) BUN/Creatinine Ratio 16 (6-20) Total Bilirubin 0.3 mg/dL (0.2-1.0) Aspartate Amino Transf (AST/SGOT) 23 U/L (15-37) Alanine Aminotransferase (ALT/SGPT) 19 U/L (16-63) Alkaline Phosphatase 36 U/L (46-116) Total Protein 5.4 g/dL (6.4-8.2) Albumin 2.5 g/dL (3.4-5.0) Albumin/Globulin Ratio 0.9 (1.0-1.7) White Blood Count 5.4 x10^3/uL (4.0-11.0) Red Blood Count 2.88 x10^6/uL (4.30-5.70) Hemoglobin 8.9 g/dL (13.0-17.5) Hematocrit 26.4 % (39.0-53.0) Mean Corpuscular Volume 92 fL (79-100) Mean Corpuscular Hemoglobin 31 pg (25-35) Mean Corpuscular Hemoglobin Concent 34 g/dL (31-37) Red Cell Distribution Width 14.2 % (11.5-14.5) Platelet Count 154 x10^3/uL (140-400) Neutrophils (%) (Auto) 69 % (31-73) Lymphocytes (%) (Auto) 20 % (24-48) Monocytes (%) (Auto) 9 % (0-9) Eosinophils (%) (Auto) 2 % (0-3) Basophils (%) (Auto) 0 % (0-3) Neutrophils # (Auto) 3.8 x10^3/uL (1.8-7.7) Lymphocytes # (Auto) 1.1 x10^3/uL (1.0-4.8) Monocytes # (Auto) 0.5 x10^3/uL (0.0-1.1) Eosinophils # (Auto) 0.1 x10^3/uL (0.0-0.7) Basophils # (Auto) 0.0 x10^3/uL (0.0-0.2) Magnesium Level 2.1 mg/dL (1.8-2.4) Microbiology Micro Microbiology 06/27/20 Blood Culture - Preliminary, Resulted NO GROWTH AFTER 1 DAY Physical Exam Chest: Symmetric LUNGS: Other (diminished bases) Heart: RRR Abdomen: Soft N/T Extremities: No Edema Neurology: alert, follow commands Assessment Assessment 1. Nontraumatic mechanical fall/weakness: no syncopal spell 2. LLE pain: likely from lumbar radiculopathy with noted spinal stenosis/HNP vs DVT vs strain from fall, defer to PCP 3. CARMELINA on CKD; improved with IVFs 4. COPD: stable 5. Known ICM: last known EF at 35-40% last noted in 2018 6. Hx of GIB 7. Hx of remote PE/DVT: IVC filter in place 8. HTN: controlled 9. HLP; statin 10. COPD: stable 11. Chronic systolic/diastolic CHF: clinically compensated 12. Remote PAFIB: maintaining SR 13. Mild troponin elevation: peaked at 0.06, no acute changes to EKG by comparison, possibly demand mediated type 2 with fall and renal insufficiency. No cardiopulmonary symptoms. 14. CAD: STEMI in 2011 with BMS to LAD and RCA. clinically stable 15. PUI; COVID negative Recommendations Echo to assess LV systolic function Secondary prevention Continue ASA, statin and BB Poor candidate for anticoagulation therapy due to history, predisposition to GIB Could consider for outpt stress test. Supportive care Justicifation of Admission Dx: Justifications for Admission: Justification of Admission Dx: Comment: Sepsis: Infection FERNANDO BELCHER APRN Jun 29, 2020 09:36
[2020-06-29] MEDS: cefTRIAXone IV Push 1 GM VIAL. IVP SCH (10:14)
--- NOTE | 2020-06-29 10:27 | PDOC ---
Infectious Disease Note Subjective: Subjective Patient feels a little better though continues to have some weakness Denies fever, nausea, vomiting, diarrhea, abdominal pain Vital Signs: Vital Signs Vital Signs Date Time Temp Pulse Resp B/P (MAP) Pulse Ox O2 Delivery O2 Flow Rate FiO2 06/29/20 08:42 64 111/43 06/29/20 08:00 Room Air 06/29/20 07:00 97.9 26 98 97.9 Physical Exam: PHYSICAL EXAM GENERAL: Alert, awake, hard of hearing male, lying in bed, in no acute distress. HEENT: Normocephalic, atraumatic, anicteric. Oral mucosa dry. NECK: Supple, no JVD. LUNGS: Clear bilaterally. No wheezing. HEART: S1, S2, no murmurs. ABDOMEN: Soft, nontender, nondistended. EXTREMITIES: No edema, no cyanosis. DERMATOLOGIC: Warm, dry. No generalized rash. NEUROLOGIC: Alert, awake, hard of hearing, generalized weakness. PSYCHIATRIC: Calm and cooperative. Medications: Inpatient Meds: Medications reviewed. Labs: Lab Laboratory Tests Test 06/28/20 10:35 06/29/20 05:00 06/29/20 05:20 D-Dimer (Radha) 1.13 ug/mlFEU (0.00-0.50) Sodium Level 139 mmol/L (136-145) 139 mmol/L (136-145) Potassium Level 4.1 mmol/L (3.5-5.1) 4.2 mmol/L (3.5-5.1) Chloride Level 103 mmol/L (98-107) 105 mmol/L (98-107) Carbon Dioxide Level 29 mmol/L (21-32) 28 mmol/L (21-32) Anion Gap 7 (6-14) 6 (6-14) Blood Urea Nitrogen 25 mg/dL (8-26) 31 mg/dL (8-26) Creatinine 2.3 mg/dL (0.7-1.3) 2.0 mg/dL (0.7-1.3) Estimated GFR (Cockcroft-Gault) 27.0 31.8 Glucose Level 116 mg/dL (70-99) 106 mg/dL (70-99) Calcium Level 8.3 mg/dL (8.5-10.1) 7.7 mg/dL (8.5-10.1) Creatine Kinase 291 U/L (39-308) TI-Ape-I-Type Natriuretic Peptide 4029 pg/mL (0-449) Triglycerides Level 71 mg/dL (0-150) Cholesterol Level 115 mg/dL (0-200) LDL Cholesterol, Calculated 59 mg/dL (0-100) VLDL Cholesterol, Calculated 14 mg/dL (0-40) Non-HDL Cholesterol Calculated 73 mg/dL (0-129) HDL Cholesterol 42 mg/dL (40-60) Cholesterol/HDL Ratio 2.7 Thyroid Stimulating Hormone (TSH) 1.212 uIU/mL (0.358-3.74) BUN/Creatinine Ratio 16 (6-20) Total Bilirubin 0.3 mg/dL (0.2-1.0) Aspartate Amino Transf (AST/SGOT) 23 U/L (15-37) Alanine Aminotransferase (ALT/SGPT) 19 U/L (16-63) Alkaline Phosphatase 36 U/L (46-116) Total Protein 5.4 g/dL (6.4-8.2) Albumin 2.5 g/dL (3.4-5.0) Albumin/Globulin Ratio 0.9 (1.0-1.7) White Blood Count 5.4 x10^3/uL (4.0-11.0) Red Blood Count 2.88 x10^6/uL (4.30-5.70) Hemoglobin 8.9 g/dL (13.0-17.5) Hematocrit 26.4 % (39.0-53.0) Mean Corpuscular Volume 92 fL (79-100) Mean Corpuscular Hemoglobin 31 pg (25-35) Mean Corpuscular Hemoglobin Concent 34 g/dL (31-37) Red Cell Distribution Width 14.2 % (11.5-14.5) Platelet Count 154 x10^3/uL (140-400) Neutrophils (%) (Auto) 69 % (31-73) Lymphocytes (%) (Auto) 20 % (24-48) Monocytes (%) (Auto) 9 % (0-9) Eosinophils (%) (Auto) 2 % (0-3) Basophils (%) (Auto) 0 % (0-3) Neutrophils # (Auto) 3.8 x10^3/uL (1.8-7.7) Lymphocytes # (Auto) 1.1 x10^3/uL (1.0-4.8) Monocytes # (Auto) 0.5 x10^3/uL (0.0-1.1) Eosinophils # (Auto) 0.1 x10^3/uL (0.0-0.7) Basophils # (Auto) 0.0 x10^3/uL (0.0-0.2) Magnesium Level 2.1 mg/dL (1.8-2.4) Objective: Assessment: 1. Generalized weakness. 2. Low-grade febrile illness. Improved 3. Chronic kidney disease. 4. Severe chronic obstructive pulmonary disease. 5. History of COVID-19, treated at [facility] 03/2020. 6. Coronary artery disease. 7. Diabetes mellitus. 8. Physical deconditioning. 9. Troponin elevation. Plan: Plan of Care Continue ceftriaxone DC azithromycin Follow up labs and cultures. Supportive care. Maintain aspiration precaution. Discussed with AMBER FERMIN MD Jun 29, 2020 10:27
[2020-06-29 11:00] VITALS: BP 136/61
[2020-06-29 15:00] VITALS: BP 141/78
[2020-06-29 19:00] VITALS: BP 148/67
[2020-06-29] MEDS: MONTELUKAST SODIUM 10 MG TABLET. PO SCH (21:37)
[2020-06-29] MEDS: MIRTAZAPINE 7.5 MG TABLET. PO SCH (21:37)
[2020-06-29] MEDS: DOXAZOSIN MESYLATE 4 MG TABLET. PO SCH (21:37)
[2020-06-29] MEDS: LACTOBACILLUS RHAMNOSUS GG 1 CAPSULE. PO SCH (21:38)
[2020-06-29] MEDS: SIMVASTATIN 20 MG TABLET PO SCH (21:39)
[2020-06-29 23:03] VITALS: BP 122/59
[2020-06-30] MEDS: IV NORMAL SALINE 1000ML BAG 1,000 ML IV SCH ×2 (01:45→14:08)
[2020-06-30 03:13] VITALS: BP 129/59
[2020-06-30 04:50] LABS: BASO % 1 % (0-3); EOS # 0.4 x10^3/uL (0.0-0.7); EOS % 9 % (0-3); HEMATOCRIT 26.1 % (39.0-53.0); HEMOGLOBIN 9.2 g/dL (13.0-17.5); LYMPH # 1.2 x10^3/uL (1.0-4.8); LYMPH % 24 % (24-48); MEAN CORPUSCULAR HEMOGLOBIN 32 pg (25-35); MEAN CORPUSCULAR HGB CONC 35 g/dL (31-37); MEAN CORPUSCULAR VOLUME 91 fL (79-100); MONO # 0.4 x10^3/uL (0.0-1.1); MONO % 8 % (0-9); NEUT # 2.9 x10^3/uL (1.8-7.7); NEUT % 59 % (31-73); PLATELET COUNT 153 x10^3/uL (140-400); RED BLOOD COUNT 2.88 x10^6/uL (4.30-5.70); RED CELL DISTRIBUTION WIDTH 14.6 % (11.5-14.5); WHITE BLOOD COUNT 4.9 x10^3/uL (4.0-11.0)
[2020-06-30 05:24] LABS: CALCIUM 8.1 mg/dL (8.5-10.1); CREATININE 1.8 mg/dL (0.7-1.3); GFR 35.9; POTASSIUM 4.1 mmol/L (3.5-5.1)
[2020-06-30 07:00] VITALS: BP 152/80
[2020-06-30] MEDS: ALBUTEROL SULFATE 2.5 MG/3 ML NEBU. NEB SCH ×4 (07:28→20:27)
[2020-06-30] MEDS: BUDESONIDE 0.5 MG/2 ML NEBU. NEB SCH ×2 (07:28→20:27)
[2020-06-30] MEDS ORDERED: PERFLUTREN PROTEIN-A MICROSPHR 0.22 MG/ML 3 ML VIAL. IV ONE ×2 (07:38→08:00)
[2020-06-30] MEDS: FLUTICASONE 50MCG/NASAL SPRAY 16GM BOTTLE. NS SCH (09:00)
[2020-06-30] MEDS: DICLOFENAC SODIUM 1% TOPICAL GEL 100GM TUBE. TP SCH ×2 (09:00→21:39)
[2020-06-30] MEDS: hydrALAZINE 25 MG TABLET PO SCH ×2 (09:03→21:00)
[2020-06-30] MEDS: LACTOBACILLUS RHAMNOSUS GG 1 CAPSULE. PO SCH ×2 (09:03→21:37)
[2020-06-30] MEDS: ASPIRIN ENTERIC COATED 81 MG TABLET.DR. PO SCH (09:03)
[2020-06-30] MEDS: PANTOPRAZOLE 40 MG TABLET.DR. PO SCH (09:03)
[2020-06-30] MEDS: CALCIUM CARB/VIT D3 500/200 TABLET. PO SCH (09:03)
[2020-06-30] MEDS: MULTIVITAMIN with MINERAL TABLET. PO SCH (09:03)
[2020-06-30] MEDS: CYANOCOBALAMIN (VITAMIN B-12) 1,000 MCG TABLET. PO SCH (09:03)
[2020-06-30] MEDS: cefTRIAXone IV Push 1 GM VIAL. IVP SCH (09:03)
[2020-06-30] MEDS: HEPARIN for SUB-Q USE 5,000 UNIT/ML VIAL. SQ SCH ×2 (09:04→21:43)
[2020-06-30] MEDS: CARVEDILOL 3.125 MG TABLET. PO SCH ×2 (09:04→17:00)
--- NOTE | 2020-06-30 09:56 | PDOC ---
Infectious Disease Note Subjective: Subjective Patient without complaints Denies fever, nausea, vomiting, diarrhea, abdominal pain Vital Signs: Vital Signs Vital Signs Date Time Temp Pulse Resp B/P (MAP) Pulse Ox O2 Delivery O2 Flow Rate FiO2 06/30/20 09:04 65 129/59 06/30/20 07:00 96.4 20 97 Room Air 96.4 Physical Exam: PHYSICAL EXAM GENERAL: Alert, awake, hard of hearing male, lying in bed, in no acute distress. HEENT: Normocephalic, atraumatic, anicteric. Oral mucosa dry. NECK: Supple, no JVD. LUNGS: Clear bilaterally. No wheezing. HEART: S1, S2, no murmurs. ABDOMEN: Soft, nontender, nondistended. EXTREMITIES: No edema, no cyanosis. DERMATOLOGIC: Warm, dry. No generalized rash. NEUROLOGIC: Alert, awake, hard of hearing, generalized weakness. PSYCHIATRIC: Calm and cooperative. Medications: Inpatient Meds: Medications reviewed. Labs: Lab Laboratory Tests Test 06/30/20 04:00 White Blood Count 4.9 x10^3/uL (4.0-11.0) Red Blood Count 2.88 x10^6/uL (4.30-5.70) Hemoglobin 9.2 g/dL (13.0-17.5) Hematocrit 26.1 % (39.0-53.0) Mean Corpuscular Volume 91 fL (79-100) Mean Corpuscular Hemoglobin 32 pg (25-35) Mean Corpuscular Hemoglobin Concent 35 g/dL (31-37) Red Cell Distribution Width 14.6 % (11.5-14.5) Platelet Count 153 x10^3/uL (140-400) Neutrophils (%) (Auto) 59 % (31-73) Lymphocytes (%) (Auto) 24 % (24-48) Monocytes (%) (Auto) 8 % (0-9) Eosinophils (%) (Auto) 9 % (0-3) Basophils (%) (Auto) 1 % (0-3) Neutrophils # (Auto) 2.9 x10^3/uL (1.8-7.7) Lymphocytes # (Auto) 1.2 x10^3/uL (1.0-4.8) Monocytes # (Auto) 0.4 x10^3/uL (0.0-1.1) Eosinophils # (Auto) 0.4 x10^3/uL (0.0-0.7) Basophils # (Auto) 0.0 x10^3/uL (0.0-0.2) Sodium Level 144 mmol/L (136-145) Potassium Level 4.1 mmol/L (3.5-5.1) Chloride Level 109 mmol/L (98-107) Carbon Dioxide Level 28 mmol/L (21-32) Anion Gap 7 (6-14) Blood Urea Nitrogen 27 mg/dL (8-26) Creatinine 1.8 mg/dL (0.7-1.3) Estimated GFR (Cockcroft-Gault) 35.9 Glucose Level 87 mg/dL (70-99) Calcium Level 8.1 mg/dL (8.5-10.1) Objective: Assessment: 1. Generalized weakness. 2. Low-grade febrile illness. Improved 3. Chronic kidney disease. 4. Severe chronic obstructive pulmonary disease. 5. History of COVID-19, treated at [facility] 03/2020. 6. Coronary artery disease. 7. Diabetes mellitus. 8. Physical deconditioning. 9. Troponin elevation. Plan: Plan of Care DC ceftriaxone monitor off antibiotics ok to transfer to rehab facility Discussed with AMBER FERMIN MD Jun 30, 2020 09:56
--- NOTE | 2020-06-30 10:00 | PDOC3 ---
IM DISCHARGE SUMMARY Date of Admission Date of Admission Date of Admission: Jun 27, 2020 at 19:30 Date of Discharge Date of Discharge June 30, 2020 Primary Diagnosis Primary Diagnosis 1. Acute bronchitis. 2. Exacerbation of chronic obstructive pulmonary disease. 3. Non-ST elevation myocardial infarction, likely due to type 2 strain due to demand ischemia. 4. Recurrent falls. 5. Check for rhabdomyolysis. Check CPK. 6. Acute renal failure with chronic kidney disease 3. His baseline creatinine is around 1.6. 7. Coronary artery disease, history of 2 stents placed. 8. History of diabetes mellitus type 2. 9. Hypertension with chronic kidney disease 3, baseline creatinine 1.6. 10. Physical deconditioning. 11. Acute metabolic encephalopathy. 12. Carotid artery disease. 13. Osteoarthritis. 14. History of L3 compression fracture. 15. Anemia. 16. Anxiety. Consults Consults Paxton Ribeiro MD; Philippe aBss MD; rAen Stover MD; Darrius Dye MD Labs Labs Laboratory Tests Test 06/30/20 04:00 White Blood Count 4.9 x10^3/uL (4.0-11.0) Red Blood Count 2.88 x10^6/uL (4.30-5.70) L Hemoglobin 9.2 g/dL (13.0-17.5) L Hematocrit 26.1 % (39.0-53.0) L Mean Corpuscular Volume 91 fL (79-100) Mean Corpuscular Hemoglobin 32 pg (25-35) Mean Corpuscular Hemoglobin Concent 35 g/dL (31-37) Red Cell Distribution Width 14.6 % (11.5-14.5) H Platelet Count 153 x10^3/uL (140-400) Neutrophils (%) (Auto) 59 % (31-73) Lymphocytes (%) (Auto) 24 % (24-48) Monocytes (%) (Auto) 8 % (0-9) Eosinophils (%) (Auto) 9 % (0-3) H Basophils (%) (Auto) 1 % (0-3) Neutrophils # (Auto) 2.9 x10^3/uL (1.8-7.7) Lymphocytes # (Auto) 1.2 x10^3/uL (1.0-4.8) Monocytes # (Auto) 0.4 x10^3/uL (0.0-1.1) Eosinophils # (Auto) 0.4 x10^3/uL (0.0-0.7) Basophils # (Auto) 0.0 x10^3/uL (0.0-0.2) Sodium Level 144 mmol/L (136-145) Potassium Level 4.1 mmol/L (3.5-5.1) Chloride Level 109 mmol/L (98-107) H Carbon Dioxide Level 28 mmol/L (21-32) Anion Gap 7 (6-14) Blood Urea Nitrogen 27 mg/dL (8-26) H Creatinine 1.8 mg/dL (0.7-1.3) H Estimated GFR (Cockcroft-Gault) 35.9 Glucose Level 87 mg/dL (70-99) Calcium Level 8.1 mg/dL (8.5-10.1) L Laboratory Tests 06/30/20 04:00 Laboratory Tests 06/30/20 04:00 Brief hospital course Brief hospital course This 85-year-old male who has been admitted to this institution several times in the past and who has a history of COPD, previous history of COVID-19 infection, chronic kidney disease stage 3, COPD, coronary artery disease, carotid artery disease, generalized weakness, osteoarthritis and multiple other medical problems, fell at home. He states that he fell after his family left around 5:00 p.m., but is not sure of the days. He thinks that he was on the ground for many, many hours including all night. He is not sure if he fell yesterday or the day before. He was admitted to the hospital yesterday evening because of his weakness, fall as well as elevated troponin suggestive of non-ST elevation myocardial infarction. For more details regarding the past history, family history, social history, surgical history and other details, please refer to History and Physical. 1. Acute bronchitis. Start IV Rocephin and Zithromax. I will consult Dr. Ribeiro for pulmonary evaluation and management and Dr. Darrius Dye for Infectious Disease evaluation and management. Also, check blood cultures x 2. Check for COVID-19 infection. This was discussed with the staff. 2. Acute renal failure with chronic kidney disease 3. Start IV fluids, IV normal saline, but give it gently and cautiously due to history of fluid retention and coronary artery disease. BNP is 4029. BUN today is 31 and crea tinine 2.0. Patient is clinically dry. 3. Recurrent falls. Order physical therapy and occupational therapy. Consult Dr. Bass for rehab evaluation and management. History of systolic congestive heart failure with ejection fraction of 35 to 40% previously. Echocardiogram pending Anemia-hemoglobin decreased to 8.9. 4. Check CPK and repeat labs in a.m. Discussed with staff. I will also start him on IV steroids, low dose. Acute bronchitis is slowly improving. IV Zithromax has been discontinued. Oral antibiotics per infectious disease specialist. Will change to oral steroids and wean slowly. Will likely need a baseline dose of 10 mg daily. Acute metabolic encephalopathy has improved and he is back to his baseline. Okay to discharge to fpc unit when accepted. Medications Medications reviewed and reconciled for discharge. Allergy Allergies Coded Allergies Type Severity Reaction Last Updated Verified Sulfa (Sulfonamide Antibiotics) Allergy Severe 02/24/20 Yes clopidogrel Allergy Intermediate 02/24/20 Yes valsartan Allergy Intermediate 02/24/20 Yes warfarin Allergy Intermediate 02/24/20 Yes Follow up in 5 days after discharge from the fpc unit. DISPOSITION: Custodial facility Comments Discharge Management - 35 minutes. For other details please refer to discharge instructions Justicifation of Admission Dx: Justifications for Admission: Justification of Admission Dx: Comment: Sepsis: Infection MARCELLUS FIERRO MD Jun 30, 2020 10:00
[2020-06-30] MEDS ORDERED: LACT1CAP19 PO (10:05)
[2020-06-30] MEDS ORDERED: PRED20TA PO (10:05)
--- NOTE | 2020-06-30 10:07 | SNU/HH DC ---
DISCHARGE ORDERS DISCHARGE INFORMATION: FINAL DIAGNOSIS Problems Medical Problems: (1) Accidental fall Status: Acute (2) CKD (chronic kidney disease) Status: Acute (3) NSTEMI (non-ST elevated myocardial infarction) Status: Acute CONDITION ON DISCHARGE: Stable POST DISCHARGE ORDERS: ACTIVITY ORDERS: Activity as tolerated (With supervision and PT OT) WEIGHT BEARING STATUS: As tolerated DIET AFTER DISCHARGE: Cardiac OTHER ORDERS: Fall precautions CHECKS AFTER DISCHARGE: CHECKS AFTER DISCHARGE: Check blood press - daily, Check your Temp as needed, Weigh Yourself Daily FOLLOW-UP: PHYSICIAN FOLLOW-UP: Dr. Marcellus Fierro in 5 days after discharge LAB ORDERS FOR FOLLOW-UP: CBC, CMP once a week TREATMENT/EQUIPMENT ORDERS: ADAPTIVE EQUIPMENT NEEDED: None, Walker RESPIRATORY EQUIPMENT NEEDED: Nebulizer Physical Therapy For: Evalulation/Treatment Occupational Therapy For: Evaluation/Treatment Speech Language Pathology For: Evaluation/Treatment DISCHARGE MEDICATIONS: Home Meds Active Scripts Acyclovir (ACYCLOVIR) 200 Mg Capsule, 400 MG PO [id number] for herpes recurrrence for 7 Days, #21 CAP Prov:MARCELLUS FIERRO MD 07/05/20 Prednisone (PREDNISONE ) 10 Mg Tablet, 1 TAB PO DAILY for copd for 30 Days, #30 TAB 0 Refills Prov:MARCELLUS FIERRO MD 07/05/20 Lactobacillus Rhamnosus Gg (CULTURELLE) 1 Each Cap.sprink, 1 CAP PO BID for Antibiotic use for 7 Days, #14 CAP Prov:MARCELLUS FIERRO MD 06/30/20 Acyclovir (ACYCLOVIR) 400 Mg Tablet, 1 TAB PO BID for herpes simplex, #10 TAB 3 Refills Prov:MARCELLUS FIERRO MD 07/15/19 Hydrocodone Bit/Acetaminophen (HYDROCODONE-APAP 7.5-325 ) 1 Tab Tablet, 1 TAB PO PRN Q6HRS PRN for MODERATE - SEVERE PAIN for 7 Days, #28 TAB Prov:MARCELLUS FIERRO MD 01/28/19 Acetaminophen (TYLENOL) 325 Mg Tablet, 650 MG PO PRN Q6HRS PRN for MILD PAIN for 30 Days, #120 TAB Prov:MARCELLUS FIERRO MD 05/11/18 Diclofenac Sodium (VOLTAREN) 100 Gm Gel..gram., 1 SONAM TP BID for arthritis for 30 Days, #100 GM 1 Refill Prov:MARCELLUS FIERRO MD 05/11/18 Cyanocobalamin (Vitamin B-12) (VITAMIN B-12) 1,000 Mcg Tablet, 1000 MCG PO DAILY, #30 TAB Prov:MARCELLUS FIERRO MD 03/24/14 Reported Medications Guaifenesin (MUCINEX) 600 Mg Tablet.er, 600 MG PO BID for congestion, TAB.SR 06/28/20 Fluticasone Propionate (FLUTICASONE PROPIONATE NASAL SPRAY) 16 Gm [place].susp, 2 SPRAY NS DAILY for ALLERGIES, #1 INHALER 11 Refills 01/17/19 Aspirin (ASPIR-LOW) 81 Mg Tablet.dr, 1 TAB PO DAILY for CIRCULATION, #30 TAB 3 Refills 01/17/19 Doxazosin Mesylate (DOXAZOSIN MESYLATE) 8 Mg Tablet, 1 TAB PO HS for PROSTATE, #30 TAB 5 Refills 01/17/19 Omeprazole (OMEPRAZOLE) 40 Mg Capsule.dr, 1 CAP PO DAILY for GERD, #30 CAP 3 Refills 01/17/19 Calcium Carbonate/Vitamin D3 (Calcium 500-Vit D3 600 Tablet) 1 Each Tablet, 1 EACH PO DAILY for SUPPLEMENT, TAB 09/09/18 Montelukast Sodium (SINGULAIR TABLET ) 10 Mg Tablet, 10 MG PO HS for FOR ASTHMA, #30 TAB 0 Refills 03/20/14 Multivits-Min/Fa/Lycopene/Lut (CENTRUM SILVER TABLET) 1 Each Tablet, 1 EACH PO DAILY 03/20/14 Carvedilol (CARVEDILOL ) 3.125 Mg Tablet, 1 TAB PO BID, #60 TAB 5 Refills 03/20/14 Hydralazine Hcl (HYDRALAZINE HCL) 25 Mg Tablet, 1 TAB PO BID, #60 TAB 5 Refills 03/20/14 Mirtazapine (MIRTAZAPINE) 7.5 Mg Tablet, 7.5 MG PO HS 08/03/13 Simvastatin (SIMVASTATIN) 20 Mg Tablet, 20 MG PO HS 08/03/13 Budesonide/Formoterol Fumarate (SYMBICORT 160-4.5 MCG INHALER) 10.2 Gm Hfa.aer.ad, 2 INHALER IH BID 08/03/13 Albuterol Sulfate (ALBUTEROL SULFATE CONC NEB SOLN) 2.5 Mg/0.5 Ml Vial.neb, 2.5 MG IH [id number] 08/03/13 Discontinued Reported Medications Prednisone (PREDNISONE ) 10 Mg Tablet, 10 MG PO DAILY for COPD, TAB 0 Refills 06/27/20 Discontinued Scripts Prednisone (PREDNISONE) 20 Mg Tablet, 20 MG PO DAILY for copd for 7 Days, #7 TAB Prov:MARCELLUS FIERRO MD 06/30/20 MARCELLUS FIERRO MD Jun 30, 2020 10:07
[2020-06-30 11:00] VITALS: BP 134/69
--- NOTE | 2020-06-30 11:26 | PDOC ---
PULMONARY PROGRESS NOTES DATE: 06/30/20 TIME: 11:25 Subjective NO COUGH, OR SOA Vitals Vital Signs Date Time Temp Pulse Resp B/P (MAP) Pulse Ox O2 Delivery O2 Flow Rate FiO2 06/30/20 11:00 97.7 68 22 134/69 (90) 95 Room Air 97.7 General: Alert, No acute distress Lungs: Clear Cardiovascular: S2 Abdomen: Soft, Non-tender Extremities: No Edema Labs Laboratory Tests Test 06/28/20 12:15 06/29/20 05:00 06/29/20 05:20 06/30/20 04:00 Coronavirus (PCR) Not detected (Not Detected) Sodium Level 139 mmol/L (136-145) 144 mmol/L (136-145) Potassium Level 4.2 mmol/L (3.5-5.1) 4.1 mmol/L (3.5-5.1) Chloride Level 105 mmol/L (98-107) 109 mmol/L (98-107) Carbon Dioxide Level 28 mmol/L (21-32) 28 mmol/L (21-32) Anion Gap 6 (6-14) 7 (6-14) Blood Urea Nitrogen 31 mg/dL (8-26) 27 mg/dL (8-26) Creatinine 2.0 mg/dL (0.7-1.3) 1.8 mg/dL (0.7-1.3) Estimated GFR (Cockcroft-Gault) 31.8 35.9 BUN/Creatinine Ratio 16 (6-20) Glucose Level 106 mg/dL (70-99) 87 mg/dL (70-99) Calcium Level 7.7 mg/dL (8.5-10.1) 8.1 mg/dL (8.5-10.1) Total Bilirubin 0.3 mg/dL (0.2-1.0) Aspartate Amino Transf (AST/SGOT) 23 U/L (15-37) Alanine Aminotransferase (ALT/SGPT) 19 U/L (16-63) Alkaline Phosphatase 36 U/L (46-116) Total Protein 5.4 g/dL (6.4-8.2) Albumin 2.5 g/dL (3.4-5.0) Albumin/Globulin Ratio 0.9 (1.0-1.7) White Blood Count 5.4 x10^3/uL (4.0-11.0) 4.9 x10^3/uL (4.0-11.0) Red Blood Count 2.88 x10^6/uL (4.30-5.70) 2.88 x10^6/uL (4.30-5.70) Hemoglobin 8.9 g/dL (13.0-17.5) 9.2 g/dL (13.0-17.5) Hematocrit 26.4 % (39.0-53.0) 26.1 % (39.0-53.0) Mean Corpuscular Volume 92 fL (79-100) 91 fL (79-100) Mean Corpuscular Hemoglobin 31 pg (25-35) 32 pg (25-35) Mean Corpuscular Hemoglobin Concent 34 g/dL (31-37) 35 g/dL (31-37) Red Cell Distribution Width 14.2 % (11.5-14.5) 14.6 % (11.5-14.5) Platelet Count 154 x10^3/uL (140-400) 153 x10^3/uL (140-400) Neutrophils (%) (Auto) 69 % (31-73) 59 % (31-73) Lymphocytes (%) (Auto) 20 % (24-48) 24 % (24-48) Monocytes (%) (Auto) 9 % (0-9) 8 % (0-9) Eosinophils (%) (Auto) 2 % (0-3) 9 % (0-3) Basophils (%) (Auto) 0 % (0-3) 1 % (0-3) Neutrophils # (Auto) 3.8 x10^3/uL (1.8-7.7) 2.9 x10^3/uL (1.8-7.7) Lymphocytes # (Auto) 1.1 x10^3/uL (1.0-4.8) 1.2 x10^3/uL (1.0-4.8) Monocytes # (Auto) 0.5 x10^3/uL (0.0-1.1) 0.4 x10^3/uL (0.0-1.1) Eosinophils # (Auto) 0.1 x10^3/uL (0.0-0.7) 0.4 x10^3/uL (0.0-0.7) Basophils # (Auto) 0.0 x10^3/uL (0.0-0.2) 0.0 x10^3/uL (0.0-0.2) Magnesium Level 2.1 mg/dL (1.8-2.4) Laboratory Tests Test 06/30/20 04:00 White Blood Count 4.9 x10^3/uL (4.0-11.0) Red Blood Count 2.88 x10^6/uL (4.30-5.70) Hemoglobin 9.2 g/dL (13.0-17.5) Hematocrit 26.1 % (39.0-53.0) Mean Corpuscular Volume 91 fL (79-100) Mean Corpuscular Hemoglobin 32 pg (25-35) Mean Corpuscular Hemoglobin Concent 35 g/dL (31-37) Red Cell Distribution Width 14.6 % (11.5-14.5) Platelet Count 153 x10^3/uL (140-400) Neutrophils (%) (Auto) 59 % (31-73) Lymphocytes (%) (Auto) 24 % (24-48) Monocytes (%) (Auto) 8 % (0-9) Eosinophils (%) (Auto) 9 % (0-3) Basophils (%) (Auto) 1 % (0-3) Neutrophils # (Auto) 2.9 x10^3/uL (1.8-7.7) Lymphocytes # (Auto) 1.2 x10^3/uL (1.0-4.8) Monocytes # (Auto) 0.4 x10^3/uL (0.0-1.1) Eosinophils # (Auto) 0.4 x10^3/uL (0.0-0.7) Basophils # (Auto) 0.0 x10^3/uL (0.0-0.2) Sodium Level 144 mmol/L (136-145) Potassium Level 4.1 mmol/L (3.5-5.1) Chloride Level 109 mmol/L (98-107) Carbon Dioxide Level 28 mmol/L (21-32) Anion Gap 7 (6-14) Blood Urea Nitrogen 27 mg/dL (8-26) Creatinine 1.8 mg/dL (0.7-1.3) Estimated GFR (Cockcroft-Gault) 35.9 Glucose Level 87 mg/dL (70-99) Calcium Level 8.1 mg/dL (8.5-10.1) Medications Active Scripts Medications Dose Route/Sig Max Daily Dose Days Date Category Culturelle (Lactobacillus Rhamnosus Gg) 1 Each Cap.sprink 1 Cap PO BID 7 06/30/20 Rx Prednisone 20 Mg Tablet 20 Mg PO DAILY 7 06/30/20 Rx Mucinex (Guaifenesin) 600 Mg Tablet.er 600 Mg PO BID 06/28/20 Reported Acyclovir 400 Mg Tablet 1 Tab PO BID 07/15/19 Rx Hydrocodone-Apap 7.5-325 (Hydrocodone Bit/Acetaminophen) 1 Tab Tablet 1 Tab PO PRN Q6HRS PRN 7 01/28/19 Rx Fluticasone Propionate Nasal [place] (Fluticasone Propionate) 16 Gm [place].susp 2 [place] NS DAILY 01/17/19 Reported Aspir-Low (Aspirin) 81 Mg Tablet.dr 1 Tab PO DAILY 01/17/19 Reported Doxazosin Mesylate 8 Mg Tablet 1 Tab PO HS 01/17/19 Reported Omeprazole 40 Mg Capsule.dr 1 Cap PO DAILY 01/17/19 Reported Calcium 500-Vit D3 600 Tablet (Calcium Carbonate/Vitamin D3) 1 Each Tablet 1 Each PO DAILY 09/09/18 Reported Tylenol (Acetaminophen) 325 Mg Tablet 650 Mg PO PRN Q6HRS PRN 30 05/11/18 Rx Voltaren (Diclofenac Sodium) 100 Gm Gel..gram. 1 Roz TP BID 30 05/11/18 Rx Vitamin B-12 (Cyanocobalamin (Vitamin B-12)) 1,000 Mcg Tablet 1,000 Mcg PO DAILY 03/24/14 Rx Singulair Tablet (Montelukast Sodium) 10 Mg Tablet 10 Mg PO HS 03/20/14 Reported Centrum Silver Tablet (Multivits-Min/Fa/Lycopene/Lut) 1 Each Tablet 1 Each PO DAILY 03/20/14 Reported Carvedilol (Carvedilol) 3.125 Mg Tablet 1 Tab PO BID 03/20/14 Reported Hydralazine Hcl 25 Mg Tablet 1 Tab PO BID 03/20/14 Reported Mirtazapine 7.5 Mg Tablet 7.5 Mg PO HS 08/03/13 Reported Simvastatin 20 Mg Tablet 20 Mg PO HS 08/03/13 Reported Symbicort 160-4.5 Mcg Inhaler (Budesonide/Formoterol Fumarate) 10.2 Gm Hfa.aer.ad 2 Inhaler IH BID 08/03/13 Reported Albuterol Sulfate Conc Neb Soln (Albuterol Sulfate) 2.5 Mg/0.5 Ml Vial.neb 2.5 Mg IH [id number] 08/03/13 Reported Impression . 1. The patient with chronic obstructive pulmonary disease from 30 years of tobacco use. Clinically, compensated. Currently on room air. 2. Abnormal CT chest with chronic appearing pleural parenchymal scarring in the upper lobes. No signs of acute infection. 3. Low-grade fever. Unlikely pulmonary source. Follow PCP's recommendation. Currently on antibiotics. 4. Status post fall with no obvious fractures. 5. Chronic kidney disease. Plan . 1. The patient's pulmonary status is currently stable. 2. P.r.n. oxygen. 3. Monitor renal function. 4. Empiric antibiotic per PCP. 5. Monitor for any further fever. 6. Discussed with RN. Overall, pulmonary status is stable. We will be available for any further recommendations. At his age, I do not see a need for any followup CT chest in future. 7. OK WITH DC TO [facility] MD Jun 30, 2020 11:26
--- NOTE | 2020-06-30 11:27 | RAD ---
MR#: [id number] Date of Study: 06/29/2020 Ordering Physician: FERNANDO BELCHER, Referring Physician: FERNANDO BELCHER, Tech: APPROVED REPORT Left Lower Extremity Venous Study for DVT Patient Location: IN-PATIENT Indications Lower Extremity Pain: Vein Imaging (Left) CFV (L): Compressible SFJ (L): Compressible FEM (L): Compressible POP (L): Compressible DFV (L): Compressible PTV (L): Compressible Peroneals (L): Compressible Findings On the left, the grayscale images of the common femoral, superficial femoral and popliteal veins do n ot demonstrate any evidence of thrombus and these veins appear to be compressible. The below-knee vei ns again were not well visualized but grossly appear to be compressible. Spectral imaging and color D oppler do not reveal any evidence of obstruction to flow with normal respirophasic variation above th e knee. The below-knee veins demonstrate spontaneous flow. Critical Notification Critical Value: No <Conclusion> 1. Negative for DVT in the LLE. Signed by : Aren Stover, Electronically Approved : 06/30/2020 11:27:10
--- NOTE | 2020-06-30 11:40 | CARD ---
MR#: [id number] Date of Study: 06/30/2020 Ordering Physician: FERNANDO BELCHER, Referring Physician: FERNANDO BELCHER, Tech: Eunice Hsu [facility] APPROVED REPORT EXAM: Two-dimensional and M-mode echocardiogram with Doppler and color Doppler. Other Information Quality : Technically Limited Rhythm : NSRTechnically limited study due to body habitus. INDICATION Cardiac Disease: CAD Echo Enhancing Agent Indication: Endocardial border delineation Agent/Amount Used: Optison 3mL RISK FACTORS Hypertension Hyperlipidemia 2D DIMENSIONS RVDd3.4 (2.9-3.5cm)Left Atrium(2D)3.3 (1.6-4.0cm) IVSd1.5 (0.7-1.1cm)Aortic Root(2D)3.7 (2.0-3.7cm) LVDd5.6 (3.9-5.9cm)LVOT Diameter2.3 (1.8-2.4cm) PWd0.9 (0.7-1.1cm)LVDs4.0 (2.5-4.0cm) FS (%) 28.1 %SV82.5 ml LVEF(%)53.7 (>50%) Aortic Valve AoV Peak Mike.125.0cm/sAoV VTI25.8cm AO Peak GR.6.3mmHgLVOT Peak Mike.89.5cm/s LVOT VTI 21.44cmAO Mean GR.3mmHg ELSA (VMAX)2.12fw0UOH (VTI)3.60cm2 Mitral Valve MV E Tdsjiinq17.5cm/sMV DECEL [id number] MV A Gdyaniln76.2cm/sMV SXY17lm E/A Ratio2.1MVA (PHT)2.98cm2 TDI E/Lateral E'8.8E/Medial E'11.4 Pulmonary Valve PV Peak Waayyufh950.6cm/sPV Peak Grad.5mmHg Tricuspid Valve TR P. Bpqdybxh250rj/sTR Peak Gr.31mmHg LEFT VENTRICLE The left ventricle is upper limits of normal size. Asymetric septal hypertrophy. The ejection fractio n is severely impaired. Estimated ejection fraction 35%. The distal half of the LV is severely hypoki netic consistent with prior LAD territory infarct. Tissue Doppler imaging reveals moderate left ventr icular diastolic dysfunction. RIGHT VENTRICLE The right ventricle is normal size. There is normal right ventricular wall thickness. The right ventr icular systolic function is normal. ATRIA The left atrium is mildly dilated. The right atrium size is normal. The interatrial septum is intact with no evidence for an atrial septal defect or patent foramen ovale as noted on 2-D or Doppler imagi ng. AORTIC VALVE The aortic valve is calcified but opens well. Doppler and Color Flow revealed trace aortic regurgitat ion. There is no significant aortic valvular stenosis. MITRAL VALVE The mitral valve is normal in structure and function. There is no evidence of mitral valve prolapse. There is no mitral valve stenosis. Doppler and Color-flow revealed mild to moderate mitral regurgitat ion. TRICUSPID VALVE The tricuspid valve is normal in structure and function. Doppler and Color Flow revealed mild tricusp id regurgitation. Estimated PAP 46 mmHg. There is no tricuspid valve stenosis. PULMONIC VALVE Doppler and Color Flow revealed trace pulmonic valvular regurgitation. There is no pulmonic valvular stenosis. GREAT VESSELS The aortic root is mildly enlarged. The IVC is dilated and collapses <50% with inspiration. PERICARDIAL EFFUSION There is no evidence of significant pericardial effusion. Critical Notification Critical Value: No <Conclusion> The ejection fraction is severely impaired. Estimated ejection fraction 35%. The distal half of the LV is severely hypokinetic consistent with prior LAD territory infarct. Doppler and Color-flow revealed mild to moderate mitral regurgitation. Signed by : Aren Stover, Electronically Approved : 06/30/2020 11:39:29
--- NOTE | 2020-06-30 12:45 | PDOC ---
PROGRESS NOTES Date of Service DATE: 06/30/20 TIME: 12:43 Subjective Subjective He c/o cough that disturbed his sleep last night. Objective Objective Vital Signs Date Time Temp Pulse Resp B/P (MAP) Pulse Ox O2 Delivery O2 Flow Rate FiO2 06/30/20 11:44 95 Room Air 06/30/20 11:00 97.7 68 22 134/69 (90) 97.7 Intake and Output 06/30/20 07:00 Output Total 1350 ml Balance -1350 ml Output Urine Total 1350 ml Physical Exam Physical Exam He is sitting up at edge of bed and alert and he denies any back pain and he did walk for 200' with physical therapy with roller walker yesterday. Assessment Assessment Problems Medical Problems: (1) Accidental fall Status: Acute (2) CKD (chronic kidney disease) Status: Acute (3) NSTEMI (non-ST elevated myocardial infarction) Status: Acute Plan Plan of Care Agree with plans for SNF transfer when medically stable. Comment Review of Relevant I have reviewed the following items tawnya (where applicable) has been applied. Labs Laboratory Tests Test 06/29/20 05:00 06/29/20 05:20 06/30/20 04:00 Sodium Level 139 mmol/L (136-145) 144 mmol/L (136-145) Potassium Level 4.2 mmol/L (3.5-5.1) 4.1 mmol/L (3.5-5.1) Chloride Level 105 mmol/L (98-107) 109 mmol/L (98-107) Carbon Dioxide Level 28 mmol/L (21-32) 28 mmol/L (21-32) Anion Gap 6 (6-14) 7 (6-14) Blood Urea Nitrogen 31 mg/dL (8-26) 27 mg/dL (8-26) Creatinine 2.0 mg/dL (0.7-1.3) 1.8 mg/dL (0.7-1.3) Estimated GFR (Cockcroft-Gault) 31.8 35.9 BUN/Creatinine Ratio 16 (6-20) Glucose Level 106 mg/dL (70-99) 87 mg/dL (70-99) Calcium Level 7.7 mg/dL (8.5-10.1) 8.1 mg/dL (8.5-10.1) Total Bilirubin 0.3 mg/dL (0.2-1.0) Aspartate Amino Transf (AST/SGOT) 23 U/L (15-37) Alanine Aminotransferase (ALT/SGPT) 19 U/L (16-63) Alkaline Phosphatase 36 U/L (46-116) Total Protein 5.4 g/dL (6.4-8.2) Albumin 2.5 g/dL (3.4-5.0) Albumin/Globulin Ratio 0.9 (1.0-1.7) White Blood Count 5.4 x10^3/uL (4.0-11.0) 4.9 x10^3/uL (4.0-11.0) Red Blood Count 2.88 x10^6/uL (4.30-5.70) 2.88 x10^6/uL (4.30-5.70) Hemoglobin 8.9 g/dL (13.0-17.5) 9.2 g/dL (13.0-17.5) Hematocrit 26.4 % (39.0-53.0) 26.1 % (39.0-53.0) Mean Corpuscular Volume 92 fL (79-100) 91 fL (79-100) Mean Corpuscular Hemoglobin 31 pg (25-35) 32 pg (25-35) Mean Corpuscular Hemoglobin Concent 34 g/dL (31-37) 35 g/dL (31-37) Red Cell Distribution Width 14.2 % (11.5-14.5) 14.6 % (11.5-14.5) Platelet Count 154 x10^3/uL (140-400) 153 x10^3/uL (140-400) Neutrophils (%) (Auto) 69 % (31-73) 59 % (31-73) Lymphocytes (%) (Auto) 20 % (24-48) 24 % (24-48) Monocytes (%) (Auto) 9 % (0-9) 8 % (0-9) Eosinophils (%) (Auto) 2 % (0-3) 9 % (0-3) Basophils (%) (Auto) 0 % (0-3) 1 % (0-3) Neutrophils # (Auto) 3.8 x10^3/uL (1.8-7.7) 2.9 x10^3/uL (1.8-7.7) Lymphocytes # (Auto) 1.1 x10^3/uL (1.0-4.8) 1.2 x10^3/uL (1.0-4.8) Monocytes # (Auto) 0.5 x10^3/uL (0.0-1.1) 0.4 x10^3/uL (0.0-1.1) Eosinophils # (Auto) 0.1 x10^3/uL (0.0-0.7) 0.4 x10^3/uL (0.0-0.7) Basophils # (Auto) 0.0 x10^3/uL (0.0-0.2) 0.0 x10^3/uL (0.0-0.2) Magnesium Level 2.1 mg/dL (1.8-2.4) Laboratory Tests Test 06/30/20 04:00 White Blood Count 4.9 x10^3/uL (4.0-11.0) Red Blood Count 2.88 x10^6/uL (4.30-5.70) Hemoglobin 9.2 g/dL (13.0-17.5) Hematocrit 26.1 % (39.0-53.0) Mean Corpuscular Volume 91 fL (79-100) Mean Corpuscular Hemoglobin 32 pg (25-35) Mean Corpuscular Hemoglobin Concent 35 g/dL (31-37) Red Cell Distribution Width 14.6 % (11.5-14.5) Platelet Count 153 x10^3/uL (140-400) Neutrophils (%) (Auto) 59 % (31-73) Lymphocytes (%) (Auto) 24 % (24-48) Monocytes (%) (Auto) 8 % (0-9) Eosinophils (%) (Auto) 9 % (0-3) Basophils (%) (Auto) 1 % (0-3) Neutrophils # (Auto) 2.9 x10^3/uL (1.8-7.7) Lymphocytes # (Auto) 1.2 x10^3/uL (1.0-4.8) Monocytes # (Auto) 0.4 x10^3/uL (0.0-1.1) Eosinophils # (Auto) 0.4 x10^3/uL (0.0-0.7) Basophils # (Auto) 0.0 x10^3/uL (0.0-0.2) Sodium Level 144 mmol/L (136-145) Potassium Level 4.1 mmol/L (3.5-5.1) Chloride Level 109 mmol/L (98-107) Carbon Dioxide Level 28 mmol/L (21-32) Anion Gap 7 (6-14) Blood Urea Nitrogen 27 mg/dL (8-26) Creatinine 1.8 mg/dL (0.7-1.3) Estimated GFR (Cockcroft-Gault) 35.9 Glucose Level 87 mg/dL (70-99) Calcium Level 8.1 mg/dL (8.5-10.1) Microbiology 06/27/20 Blood Culture - Preliminary, Resulted NO GROWTH AFTER 2 DAYS Medications Current Medications Acetaminophen (Tylenol) 650 mg PRN Q6HRS PRN PO MILD PAIN 1-3; Start 06/28/20 at 09:15 Aspirin (Ecotrin) 81 mg DAILY PO Last administered on 06/30/20 09:03; Start 06/28/20 at 09:00 Carvedilol (Coreg) 3.125 mg BIDWMEALS PO Last administered on 06/30/20 09:04; Start 06/28/20 at 09:00 Cyanocobalamin (Vitamin B-12) 1,000 mcg DAILY PO Last administered on 06/30/20 09:03; Start 06/28/20 at 09:00 Diclofenac Sodium (Voltaren) 1 roz BID TP Last administered on 06/30/20 09:00; Start 06/28/20 at 09:00 Fluticasone Propionate (Flonase) 2 spray DAILY NS Last administered on 06/30/20at 09:00; Start 06/28/20 at 09:00 Guaifenesin (Mucinex) 600 mg BID PO Last administered on 06/30/20 09:03; Start 06/28/20 at 09:00 Hydralazine HCl (Apresoline) 25 mg BID PO Last administered on 06/30/20at 09:03; Start 06/28/20 at 09:00 Acetaminophen/ Hydrocodone Bitart (Lortab 7.5/325) 1 tab PRN Q6HRS PRN PO MODERATE - SEVERE PAIN; Start 06/28/20 at 09:15 Mirtazapine (Remeron) 7.5 mg HS PO Last administered on 06/29/20 21:37; Start 06/28/20 at 21:00 Montelukast Sodium (Singulair) 10 mg HS PO Last administered on 06/29/20at 21:37; Start 06/28/20 at 21:00 Simvastatin (Zocor) 20 mg HS PO Last administered on 06/29/20at 21:39; Start 06/28/20 at 21:00 Albuterol Sulfate (Ventolin Neb Soln) 2.5 mg RTQID NEB Last administered on 06/30/20at 11:44; Start 06/28/20 at 09:00 Budesonide (Pulmicort) 0.5 mg RTBID NEB Last administered on 06/29/20at 20:50; Start 06/28/20 at 09:00 Calcium/Vitamin D (Oscal D 500mg/ 200uts) 1 tab DAILY PO Last administered on 06/30/20 09:03; Start 06/28/20 at 09:00 Doxazosin Mesylate (Cardura) 8 mg HS PO Last administered on 06/29/20 21:37; Start 06/28/20 at 21:00 Multivitamins (Thera M Plus) 1 tab DAILY PO Last administered on 06/30/20 09:03; Start 06/28/20 at 09:00 Pantoprazole Sodium (Protonix) 40 mg DAILYAC PO Last administered on 06/30/20 09:03; Start 06/28/20 at 09:00 Heparin Sodium (Porcine) (Heparin Sodium) 5,000 unit Q12HR SQ Last administered on 06/30/20at 09:04; Start 06/28/20 at 09:00 Methylprednisolone Sodium Succinate (SOLU-Medrol 40MG VIAL) 40 mg DAILY10 ONCE IV Last administered on 06/28/20at 10:43; Start 06/28/20 at 10:00; Stop 06/28/20 at 10:01; Status DC Ceftriaxone Sodium (Rocephin) 1 gm Q24H IVP Last administered on 06/30/20 09:03; Start 06/28/20 at 10:00; Stop 06/30/20 at 10:23; Status DC Azithromycin 500 mg/Sodium Chloride 250 ml @ 250 mls/hr Q24H IV Last administered on 06/28/20at 11:21; Start 06/28/20 at 11:00; Stop 06/29/20 at 10:28; Status DC Sodium Chloride 1,000 ml @ 75 mls/hr [id number] IV Last administered on 06/29/20at 12:04; Start 06/28/20 at 09:45 Lactobacillus Rhamnosus (Culturelle) 1 cap BID PO Last administered on 06/30/20at 09:03; Start 06/29/20 at 21:00 Perflutren Protein Type A Microsphe (Optison) 0.66 mg STK-MED ONCE IV ; Start 06/30/20 at 07:38; Stop 06/30/20 at 07:39; Status DC Perflutren Protein Type A Microsphe (Optison) 0.66 mg 1X ONCE IV Last administered on 06/30/20at 07:51; Start 06/30/20 at 08:00; Stop 06/30/20 at 08:01; Status DC Active Scripts Active Culturelle (Lactobacillus Rhamnosus Gg) 1 Each Cap.sprink 1 Cap PO BID 7 Days Prednisone 20 Mg Tablet 20 Mg PO DAILY 7 Days Acyclovir 400 Mg Tablet 1 Tab PO BID Hydrocodone-Apap 7.5-325 (Hydrocodone Bit/Acetaminophen) 1 Tab Tablet 1 Tab PO PRN Q6HRS PRN 7 Days Tylenol (Acetaminophen) 325 Mg Tablet 650 Mg PO PRN Q6HRS PRN 30 Days Voltaren (Diclofenac Sodium) 100 Gm Gel..gram. 1 Roz TP BID 30 Days Vitamin B-12 (Cyanocobalamin (Vitamin B-12)) 1,000 Mcg Tablet 1,000 Mcg PO DAILY Reported Mucinex (Guaifenesin) 600 Mg Tablet.er 600 Mg PO BID Fluticasone Propionate Nasal [place] (Fluticasone Propionate) 16 Gm [place].susp 2 [place] NS DAILY Aspir-Low (Aspirin) 81 Mg Tablet.dr 1 Tab PO DAILY Doxazosin Mesylate 8 Mg Tablet 1 Tab PO HS Omeprazole 40 Mg Capsule.dr 1 Cap PO DAILY Calcium 500-Vit D3 600 Tablet (Calcium Carbonate/Vitamin D3) 1 Each Tablet 1 Each PO DAILY Singulair Tablet (Montelukast Sodium) 10 Mg Tablet 10 Mg PO HS Centrum Silver Tablet (Multivits-Min/Fa/Lycopene/Lut) 1 Each Tablet 1 Each PO DAILY Carvedilol (Carvedilol) 3.125 Mg Tablet 1 Tab PO BID Hydralazine Hcl 25 Mg Tablet 1 Tab PO BID Mirtazapine 7.5 Mg Tablet 7.5 Mg PO HS Simvastatin 20 Mg Tablet 20 Mg PO HS Symbicort 160-4.5 Mcg Inhaler (Budesonide/Formoterol Fumarate) 10.2 Gm Hfa.aer.ad 2 Inhaler IH BID Albuterol Sulfate Conc Neb Soln (Albuterol Sulfate) 2.5 Mg/0.5 Ml Vial.neb 2.5 Mg IH [id number] Vitals/I & O Vital Sign - Last 24 Hours 06/29/20 06/29/20 06/29/20 06/29/20 15:00 16:08 17:14 19:00 Temp 97.9 98.5 97.9 98.5 Pulse 63 63 52 Resp 20 20 B/P (MAP) 141/78 (99) 141/78 148/67 (94) Pulse Ox 100 98 95 O2 Delivery Room Air Room Air Room Air 06/29/20 06/29/20 06/29/20 06/29/20 20:00 20:53 21:37 21:38 Pulse 52 52 B/P (MAP) 148/67 148/67 Pulse Ox 95 O2 Delivery Room Air Room Air 06/29/20 06/30/20 06/30/20 06/30/20 23:03 03:13 07:00 08:00 Temp 97.3 98.2 96.4 97.3 98.2 96.4 Pulse 62 58 65 Resp 20 20 20 B/P (MAP) 122/59 (80) 129/59 (82) 152/80 (104) Pulse Ox 95 96 97 O2 Delivery Room Air Room Air Room Air Room Air 06/30/20 06/30/20 06/30/20 06/30/20 09:03 09:04 11:00 11:44 Temp 97.7 97.7 Pulse 65 65 68 Resp 22 B/P (MAP) 129/59 129/59 134/69 (90) Pulse Ox 95 95 O2 Delivery Room Air Room Air Intake and Output 06/29/20 06/29/20 06/30/20 15:00 23:00 07:00 Output Total 550 ml 800 ml Balance -550 ml -800 ml Justifications for Admission Other Justification ARI PORTILLO MD Jun 30, 2020 12:45
[2020-06-30] MEDS: HYDROcodone/APAP 7.5/325MG 1 TAB TABLET PO PRN (14:11)
[2020-06-30 15:00] VITALS: BP 144/69
--- NOTE | 2020-06-30 16:50 | PDOC ---
PROGRESS NOTES Date of Service DATE: 06/30/20 TIME: 16:48 Subjective Subjective Patient seen and examined Objective Objective Vital Signs Date Time Temp Pulse Resp B/P (MAP) Pulse Ox O2 Delivery O2 Flow Rate FiO2 06/30/20 15:50 95 Room Air 06/30/20 15:00 97.7 68 20 144/69 (94) 97.7 Intake and Output 06/30/20 07:00 Output Total 1350 ml Balance -1350 ml Output Urine Total 1350 ml Physical Exam Abdomen: Normal bowel sounds Heart: Regular rate General: No acute distress Lungs: Other (Mildly decreased breath sounds) Assessment Assessment Problems Medical Problems: (1) Accidental fall Status: Acute (2) CKD (chronic kidney disease) Status: Acute (3) NSTEMI (non-ST elevated myocardial infarction) Status: Acute Nontraumatic mechanical fall/weakness: no syncopal spell LLE pain: likely from lumbar radiculopathy with noted spinal stenosis/HNP vs DVT vs strain from fall, defer to PCP CARMELINA on CKD; improved with IVFs COPD: stable Known ICM: Updated echo shows an ejection fraction of 35% with mild to moderate mitral regurgitation. Continue present treatment. 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 No ca rdiopulmonary symptoms. CAD: STEMI in 2011 with BMS to LAD and RCA. clinically stable PUI; COVID negative Comment Review of Relevant I have reviewed the following items tawnya (where applicable) has been applied. Labs Laboratory Tests Test 06/29/20 05:00 06/29/20 05:20 06/30/20 04:00 Sodium Level 139 mmol/L (136-145) 144 mmol/L (136-145) Potassium Level 4.2 mmol/L (3.5-5.1) 4.1 mmol/L (3.5-5.1) Chloride Level 105 mmol/L (98-107) 109 mmol/L (98-107) Carbon Dioxide Level 28 mmol/L (21-32) 28 mmol/L (21-32) Anion Gap 6 (6-14) 7 (6-14) Blood Urea Nitrogen 31 mg/dL (8-26) 27 mg/dL (8-26) Creatinine 2.0 mg/dL (0.7-1.3) 1.8 mg/dL (0.7-1.3) Estimated GFR (Cockcroft-Gault) 31.8 35.9 BUN/Creatinine Ratio 16 (6-20) Glucose Level 106 mg/dL (70-99) 87 mg/dL (70-99) Calcium Level 7.7 mg/dL (8.5-10.1) 8.1 mg/dL (8.5-10.1) Total Bilirubin 0.3 mg/dL (0.2-1.0) Aspartate Amino Transf (AST/SGOT) 23 U/L (15-37) Alanine Aminotransferase (ALT/SGPT) 19 U/L (16-63) Alkaline Phosphatase 36 U/L (46-116) Total Protein 5.4 g/dL (6.4-8.2) Albumin 2.5 g/dL (3.4-5.0) Albumin/Globulin Ratio 0.9 (1.0-1.7) White Blood Count 5.4 x10^3/uL (4.0-11.0) 4.9 x10^3/uL (4.0-11.0) Red Blood Count 2.88 x10^6/uL (4.30-5.70) 2.88 x10^6/uL (4.30-5.70) Hemoglobin 8.9 g/dL (13.0-17.5) 9.2 g/dL (13.0-17.5) Hematocrit 26.4 % (39.0-53.0) 26.1 % (39.0-53.0) Mean Corpuscular Volume 92 fL (79-100) 91 fL (79-100) Mean Corpuscular Hemoglobin 31 pg (25-35) 32 pg (25-35) Mean Corpuscular Hemoglobin Concent 34 g/dL (31-37) 35 g/dL (31-37) Red Cell Distribution Width 14.2 % (11.5-14.5) 14.6 % (11.5-14.5) Platelet Count 154 x10^3/uL (140-400) 153 x10^3/uL (140-400) Neutrophils (%) (Auto) 69 % (31-73) 59 % (31-73) Lymphocytes (%) (Auto) 20 % (24-48) 24 % (24-48) Monocytes (%) (Auto) 9 % (0-9) 8 % (0-9) Eosinophils (%) (Auto) 2 % (0-3) 9 % (0-3) Basophils (%) (Auto) 0 % (0-3) 1 % (0-3) Neutrophils # (Auto) 3.8 x10^3/uL (1.8-7.7) 2.9 x10^3/uL (1.8-7.7) Lymphocytes # (Auto) 1.1 x10^3/uL (1.0-4.8) 1.2 x10^3/uL (1.0-4.8) Monocytes # (Auto) 0.5 x10^3/uL (0.0-1.1) 0.4 x10^3/uL (0.0-1.1) Eosinophils # (Auto) 0.1 x10^3/uL (0.0-0.7) 0.4 x10^3/uL (0.0-0.7) Basophils # (Auto) 0.0 x10^3/uL (0.0-0.2) 0.0 x10^3/uL (0.0-0.2) Magnesium Level 2.1 mg/dL (1.8-2.4) Laboratory Tests Test 06/30/20 04:00 White Blood Count 4.9 x10^3/uL (4.0-11.0) Red Blood Count 2.88 x10^6/uL (4.30-5.70) Hemoglobin 9.2 g/dL (13.0-17.5) Hematocrit 26.1 % (39.0-53.0) Mean Corpuscular Volume 91 fL (79-100) Mean Corpuscular Hemoglobin 32 pg (25-35) Mean Corpuscular Hemoglobin Concent 35 g/dL (31-37) Red Cell Distribution Width 14.6 % (11.5-14.5) Platelet Count 153 x10^3/uL (140-400) Neutrophils (%) (Auto) 59 % (31-73) Lymphocytes (%) (Auto) 24 % (24-48) Monocytes (%) (Auto) 8 % (0-9) Eosinophils (%) (Auto) 9 % (0-3) Basophils (%) (Auto) 1 % (0-3) Neutrophils # (Auto) 2.9 x10^3/uL (1.8-7.7) Lymphocytes # (Auto) 1.2 x10^3/uL (1.0-4.8) Monocytes # (Auto) 0.4 x10^3/uL (0.0-1.1) Eosinophils # (Auto) 0.4 x10^3/uL (0.0-0.7) Basophils # (Auto) 0.0 x10^3/uL (0.0-0.2) Sodium Level 144 mmol/L (136-145) Potassium Level 4.1 mmol/L (3.5-5.1) Chloride Level 109 mmol/L (98-107) Carbon Dioxide Level 28 mmol/L (21-32) Anion Gap 7 (6-14) Blood Urea Nitrogen 27 mg/dL (8-26) Creatinine 1.8 mg/dL (0.7-1.3) Estimated GFR (Cockcroft-Gault) 35.9 Glucose Level 87 mg/dL (70-99) Calcium Level 8.1 mg/dL (8.5-10.1) Microbiology 06/27/20 Blood Culture - Preliminary, Resulted NO GROWTH AFTER 2 DAYS Medications Current Medications Acetaminophen (Tylenol) 650 mg PRN Q6HRS PRN PO MILD PAIN 1-3; Start 06/28/20 at 09:15 Aspirin (Ecotrin) 81 mg DAILY PO Last administered on 06/30/20 09:03; Start 06/28/20 at 09:00 Carvedilol (Coreg) 3.125 mg BIDWMEALS PO Last administered on 06/30/20 09:04; Start 06/28/20 at 09:00 Cyanocobalamin (Vitamin B-12) 1,000 mcg DAILY PO Last administered on 06/30/20 09:03; Start 06/28/20 at 09:00 Diclofenac Sodium (Voltaren) 1 roz BID TP Last administered on 06/30/20 09:00; Start 06/28/20 at 09:00 Fluticasone Propionate (Flonase) 2 spray DAILY NS Last administered on 06/30/20 09:00; Start 06/28/20 at 09:00 Guaifenesin (Mucinex) 600 mg BID PO Last administered on 06/30/20 09:03; Start 06/28/20 at 09:00 Hydralazine HCl (Apresoline) 25 mg BID PO Last administered on 06/30/20 09:03; Start 06/28/20 at 09:00 Acetaminophen/ Hydrocodone Bitart (Lortab 7.5/325) 1 tab PRN Q6HRS PRN PO MODERATE - SEVERE PAIN Last administered on 06/30/20 14:11; Start 06/28/20 at 09:15 Mirtazapine (Remeron) 7.5 mg HS PO Last administered on 06/29/20 21:37; Start 06/28/20 at 21:00 Montelukast Sodium (Singulair) 10 mg HS PO Last administered on 06/29/20 21:37; Start 06/28/20 at 21:00 Simvastatin (Zocor) 20 mg HS PO Last administered on 06/29/20 21:39; Start 06/28/20 at 21:00 Albuterol Sulfate (Ventolin Neb Soln) 2.5 mg RTQID NEB Last administered on 06/30/20 15:50; Start 06/28/20 at 09:00 Budesonide (Pulmicort) 0.5 mg RTBID NEB Last administered on 06/29/20 20:50; Start 06/28/20 at 09:00 Calcium/Vitamin D (Oscal D 500mg/ 200uts) 1 tab DAILY PO Last administered on 06/30/20 09:03; Start 06/28/20 at 09:00 Doxazosin Mesylate (Cardura) 8 mg HS PO Last administered on 06/29/20 21:37; Start 06/28/20 at 21:00 Multivitamins (Thera M Plus) 1 tab DAILY PO Last administered on 06/30/20 09:03; Start 06/28/20 at 09:00 Pantoprazole Sodium (Protonix) 40 mg DAILYAC PO Last administered on 06/30/20 09:03; Start 06/28/20 at 09:00 Heparin Sodium (Porcine) (Heparin Sodium) 5,000 unit Q12HR SQ Last administered on 3/19/21at 09:04; Start 06/28/20 at 09:00 Methylprednisolone Sodium Succinate (SOLU-Medrol 40MG VIAL) 40 mg DAILY10 ONCE IV Last administered on 06/28/20at 10:43; Start 06/28/20 at 10:00; Stop 06/28/20 at 10:01; Status DC Ceftriaxone Sodium (Rocephin) 1 gm Q24H IVP Last administered on 06/30/20at 09:03; Start 06/28/20 at 10:00; Stop 06/30/20 at 10:23; Status DC Azithromycin 500 mg/Sodium Chloride 250 ml @ 250 mls/hr Q24H IV Last administered on 06/28/20at 11:21; Start 06/28/20 at 11:00; Stop 06/29/20 at 10:28; Status DC Sodium Chloride 1,000 ml @ 75 mls/hr [id number] IV Last administered on 06/29/20at 12:04; Start 06/28/20 at 09:45 Lactobacillus Rhamnosus (Culturelle) 1 cap BID PO Last administered on 06/30/20at 09:03; Start 06/29/20 at 21:00 Perflutren Protein Type A Microsphe (Optison) 0.66 mg STK-MED ONCE IV ; Start 06/30/20 at 07:38; Stop 06/30/20 at 07:39; Status DC Perflutren Protein Type A Microsphe (Optison) 0.66 mg 1X ONCE IV Last administered on 06/30/20at 07:51; Start 06/30/20 at 08:00; Stop 06/30/20 at 08:01; Status DC Active Scripts Active Culturelle (Lactobacillus Rhamnosus Gg) 1 Each Cap.sprink 1 Cap PO BID 7 Days Prednisone 20 Mg Tablet 20 Mg PO DAILY 7 Days Acyclovir 400 Mg Tablet 1 Tab PO BID Hydrocodone-Apap 7.5-325 (Hydrocodone Bit/Acetaminophen) 1 Tab Tablet 1 Tab PO PRN Q6HRS PRN 7 Days Tylenol (Acetaminophen) 325 Mg Tablet 650 Mg PO PRN Q6HRS PRN 30 Days Voltaren (Diclofenac Sodium) 100 Gm Gel..gram. 1 Roz TP BID 30 Days Vitamin B-12 (Cyanocobalamin (Vitamin B-12)) 1,000 Mcg Tablet 1,000 Mcg PO DAILY Reported Mucinex (Guaifenesin) 600 Mg Tablet.er 600 Mg PO BID Fluticasone Propionate Nasal Crete (Fluticasone Propionate) 16 Gm Crete.susp 2 Crete NS DAILY Aspir-Low (Aspirin) 81 Mg Tablet.dr 1 Tab PO DAILY Doxazosin Mesylate 8 Mg Tablet 1 Tab PO HS Omeprazole 40 Mg Capsule.dr 1 Cap PO DAILY Calcium 500-Vit D3 600 Tablet (Calcium Carbonate/Vitamin D3) 1 Each Tablet 1 Each PO DAILY Singulair Tablet (Montelukast Sodium) 10 Mg Tablet 10 Mg PO HS Centrum Silver Tablet (Multivits-Min/Fa/Lycopene/Lut) 1 Each Tablet 1 Each PO DAILY Carvedilol (Carvedilol) 3.125 Mg Tablet 1 Tab PO BID Hydralazine Hcl 25 Mg Tablet 1 Tab PO BID Mirtazapine 7.5 Mg Tablet 7.5 Mg PO HS Simvastatin 20 Mg Tablet 20 Mg PO HS Symbicort 160-4.5 Mcg Inhaler (Budesonide/Formoterol Fumarate) 10.2 Gm Hfa.aer.ad 2 Inhaler IH BID Albuterol Sulfate Conc Neb Soln (Albuterol Sulfate) 2.5 Mg/0.5 Ml Vial.neb 2.5 Mg IH [id number] Vitals/I & O Vital Sign - Last 24 Hours 06/29/20 06/29/20 06/29/20 06/29/20 17:14 19:00 20:00 20:53 Temp 98.5 98.5 Pulse 63 52 Resp 20 B/P (MAP) 141/78 148/67 (94) Pulse Ox 95 95 O2 Delivery Room Air Room Air Room Air 06/29/20 06/29/20 06/29/20 06/30/20 21:37 21:38 23:03 03:13 Temp 97.3 98.2 97.3 98.2 Pulse 52 52 62 58 Resp 20 20 B/P (MAP) 148/67 148/67 122/59 (80) 129/59 (82) Pulse Ox 95 96 O2 Delivery Room Air Room Air 06/30/20 06/30/20 06/30/20 06/30/20 07:00 08:00 09:03 09:04 Temp 96.4 96.4 Pulse 65 65 65 Resp 20 B/P (MAP) 152/80 (104) 129/59 129/59 Pulse Ox 97 O2 Delivery Room Air Room Air 06/30/20 06/30/20 06/30/20 06/30/20 11:00 11:44 14:11 15:00 Temp 97.7 97.7 97.7 97.7 Pulse 68 68 Resp 22 20 B/P (MAP) 134/69 (90) 144/69 (94) Pulse Ox 95 95 98 O2 Delivery Room Air Room Air Room Air Room Air 06/30/20 06/30/20 15:13 15:50 Pulse Ox 95 O2 Delivery Room Air Room Air Intake and Output 06/29/20 06/29/20 06/30/20 15:00 23:00 07:00 Output Total 550 ml 800 ml Balance -550 ml -800 ml Justifications for Admission Other Justification GAL BURTON MD Jun 30, 2020 16:50
[2020-06-30 19:00] VITALS: BP 105/49
[2020-06-30] MEDS: DOXAZOSIN MESYLATE 4 MG TABLET. PO SCH (21:37)
[2020-06-30] MEDS: MONTELUKAST SODIUM 10 MG TABLET. PO SCH (21:37)
[2020-06-30] MEDS: SIMVASTATIN 20 MG TABLET PO SCH (21:37)
[2020-06-30] MEDS: MIRTAZAPINE 7.5 MG TABLET. PO SCH (21:37)
[2020-06-30 23:28] VITALS: BP 133/67
[2020-07-01 03:10] VITALS: BP 124/69
[2020-07-01] MEDS: IV NORMAL SALINE 1000ML BAG 1,000 ML IV SCH (04:25)
[2020-07-01 07:00] VITALS: BP 125/61
[2020-07-01] MEDS: ALBUTEROL SULFATE 2.5 MG/3 ML NEBU. NEB SCH ×5 (08:00→21:31)
[2020-07-01] MEDS: BUDESONIDE 0.5 MG/2 ML NEBU. NEB SCH ×2 (08:00→21:31)
--- NOTE | 2020-07-01 08:42 | PDOC ---
Infectious Disease Note Subjective: Subjective Patient without complaints Denies fever, nausea, vomiting, shortness of breath, diarrhea, abdominal pain, rash Vital Signs: Vital Signs Vital Signs Date Time Temp Pulse Resp B/P (MAP) Pulse Ox O2 Delivery O2 Flow Rate FiO2 07/01/20 08:24 94 Room Air 07/01/20 03:10 98.6 82 16 124/69 (87) 98.6 Physical Exam: PHYSICAL EXAM GENERAL: Alert, awake, hard of hearing male, lying in bed, in no acute distress. HEENT: Normocephalic, atraumatic, anicteric. Oral mucosa dry. NECK: Supple, no JVD. LUNGS: Clear bilaterally. No wheezing. HEART: S1, S2, no murmurs. ABDOMEN: Soft, nontender, nondistended. EXTREMITIES: No edema, no cyanosis. DERMATOLOGIC: Warm, dry. No generalized rash. NEUROLOGIC: Alert, awake, hard of hearing, generalized weakness. PSYCHIATRIC: Calm and cooperative. Medications: Inpatient Meds: Medications reviewed. Objective: Assessment: 1. Generalized weakness. 2. Low-grade febrile illness. Improved 3. Chronic kidney disease. 4. Severe chronic obstructive pulmonary disease. 5. History of COVID-19, treated at [facility] 03/2020. 6. Coronary artery disease. 7. Diabetes mellitus. 8. Physical deconditioning. 9. Troponin elevation. Plan: Plan of Care Monitor off antibiotics Cultures are negative Awaiting placement d/w AMBER FERMIN MD Jul 01, 2020 08:42
[2020-07-01] MEDS: FLUTICASONE 50MCG/NASAL SPRAY 16GM BOTTLE. NS SCH (09:00)
[2020-07-01] MEDS: DICLOFENAC SODIUM 1% TOPICAL GEL 100GM TUBE. TP SCH ×2 (09:00→23:55)
[2020-07-01] MEDS: CYANOCOBALAMIN (VITAMIN B-12) 1,000 MCG TABLET. PO SCH (09:20)
[2020-07-01] MEDS: MULTIVITAMIN with MINERAL TABLET. PO SCH (09:20)
[2020-07-01] MEDS: LACTOBACILLUS RHAMNOSUS GG 1 CAPSULE. PO SCH ×2 (09:20→23:44)
[2020-07-01] MEDS: ASPIRIN ENTERIC COATED 81 MG TABLET.DR. PO SCH (09:20)
[2020-07-01] MEDS: CALCIUM CARB/VIT D3 500/200 TABLET. PO SCH (09:20)
[2020-07-01] MEDS: hydrALAZINE 25 MG TABLET PO SCH ×2 (09:21→23:47)
[2020-07-01] MEDS: PANTOPRAZOLE 40 MG TABLET.DR. PO SCH (09:21)
[2020-07-01] MEDS: CARVEDILOL 3.125 MG TABLET. PO SCH ×2 (09:21→17:25)
[2020-07-01] MEDS: HEPARIN for SUB-Q USE 5,000 UNIT/ML VIAL. SQ SCH ×2 (09:24→23:56)
[2020-07-01] MEDS: HYDROcodone/APAP 7.5/325MG 1 TAB TABLET PO PRN ×2 (09:53→23:48)
--- NOTE | 2020-07-01 10:11 | PDOC ---
IM PROGRESS NOTES- Subjective Subjective Complaints of generalized weakness. Dyspnea is improving. Has occasional back pain. Objective Vitals/I&O Vital Signs Date Time Temp Pulse Resp B/P (MAP) Pulse Ox O2 Delivery O2 Flow Rate FiO2 07/01/20 09:21 67 125/61 07/01/20 08:24 94 Room Air 07/01/20 07:00 96.4 18 96.4 I & O 06/30/20 06/30/20 07/01/20 15:00 23:00 07:00 Intake Total 120 ml 200 ml 210 ml Output Total 300 ml 725 ml Balance -180 ml 200 ml -515 ml Physical Exam Physical Exam General appearance - alert,chronically ill appearing, in mild respiratory distr ess and forgetful Mental Status - alert, forgetful Head - normal Chest -increased air entry, no wheezing. Heart - S1 and S2 normal Abdomen - soft, non tender, Neurological - alert and forgetful. Mental status is improving. Musculoskeletal -generalized weakness Extremities - no pedal edema Skin - warm and dry Assessment Assessment 1. Acute bronchitis. 2. Exacerbation of chronic obstructive pulmonary disease. 3. Non-ST elevation myocardial infarction, likely due to type 2 strain due to demand ischemia. 4. Recurrent falls. 5. Check for rhabdomyolysis. Check CPK. 6. Acute renal failure with chronic kidney disease 3. His baseline creatinine is around 1.6. 7. Coronary artery disease, history of 2 stents placed. 8. History of diabetes mellitus type 2. 9. Hypertension with chronic kidney disease 3, baseline creatinine 1.6. 10. Physical deconditioning. 11. Acute metabolic encephalopathy. 12. Carotid artery disease. 13. Osteoarthritis. 14. History of L3 compression fracture. 15. Anemia. 16. Anxiety. PLAN: 1. Acute bronchitis. Start IV Rocephin and Zithromax. I will consult Dr. Ribeiro for pulmonary evaluation and management and Dr. Darrius Dye for Infectious Disease evaluation and management. Also, check blood cultures x 2. COVID-19 PCR test was negative. Blood cultures are negative. IV Rocephin has been discontinued. Observe him off the antibiotics. 2. Acute renal failure with chronic kidney disease 3. Start IV fluids, IV normal saline, but give it gently and cautiously due to history of fluid retention and coronary artery disease. BNP is 4029. BUN today is 31 and creatinine 2.0. Patient is clinically dry. 3. Recurrent falls. Order physical therapy and occupational therapy. Consult Dr. Bass for rehab evaluation and management. History of systolic congestive heart failure with ejection fraction of 35 to 40% previously. Echocardiogram pending Anemia-hemoglobin decreased to 8.9. 4. Check CPK and repeat labs in a.m. Discussed with staff. 5. Acute exacerbation of COPD. IV steroids discontinued. Changed to oral prednisone.. He is on prednisone 10 mg daily at home. We will hold that for now. For details, please refer to the orders. Prognosis of this patient is very poor due to his multiple medical problems. Discharge to correction unit when accepted. Plan Plan For more details regarding further plans, please refer to the orders. Justifications for Admission Other Justification MARCELLUS FIERRO MD Jul 01, 2020 10:11
--- NOTE | 2020-07-01 10:36 | PDOC ---
PROGRESS NOTES Date of Service DATE: 07/01/20 TIME: 10:35 Subjective Subjective No new complaints. Objective Objective Vital Signs Date Time Temp Pulse Resp B/P (MAP) Pulse Ox O2 Delivery O2 Flow Rate FiO2 07/01/20 09:21 67 125/61 07/01/20 08:24 94 Room Air 07/01/20 07:00 96.4 18 96.4 Intake and Output 07/01/20 07:00 Intake Total 530 ml Output Total 1025 ml Balance -495 ml Intake Oral 530 ml Output Urine Total 1025 ml # Voids 1 # Bowel Movements 1 Physical Exam Physical Exam he is resting in bed with head end elevated and he did walk for 2250' with physical therapy using [employer] walker yesterday. Assessment Assessment Problems Medical Problems: (1) Accidental fall Status: Acute (2) CKD (chronic kidney disease) Status: Acute (3) NSTEMI (non-ST elevated myocardial infarction) Status: Acute Plan Plan of Care To SNF when arrangements are completed. Comment Review of Relevant I have reviewed the following items tawnya (where applicable) has been applied. Labs Laboratory Tests Test 06/30/20 04:00 White Blood Count 4.9 x10^3/uL (4.0-11.0) Red Blood Count 2.88 x10^6/uL (4.30-5.70) Hemoglobin 9.2 g/dL (13.0-17.5) Hematocrit 26.1 % (39.0-53.0) Mean Corpuscular Volume 91 fL (79-100) Mean Corpuscular Hemoglobin 32 pg (25-35) Mean Corpuscular Hemoglobin Concent 35 g/dL (31-37) Red Cell Distribution Width 14.6 % (11.5-14.5) Platelet Count 153 x10^3/uL (140-400) Neutrophils (%) (Auto) 59 % (31-73) Lymphocytes (%) (Auto) 24 % (24-48) Monocytes (%) (Auto) 8 % (0-9) Eosinophils (%) (Auto) 9 % (0-3) Basophils (%) (Auto) 1 % (0-3) Neutrophils # (Auto) 2.9 x10^3/uL (1.8-7.7) Lymphocytes # (Auto) 1.2 x10^3/uL (1.0-4.8) Monocytes # (Auto) 0.4 x10^3/uL (0.0-1.1) Eosinophils # (Auto) 0.4 x10^3/uL (0.0-0.7) Basophils # (Auto) 0.0 x10^3/uL (0.0-0.2) Sodium Level 144 mmol/L (136-145) Potassium Level 4.1 mmol/L (3.5-5.1) Chloride Level 109 mmol/L (98-107) Carbon Dioxide Level 28 mmol/L (21-32) Anion Gap 7 (6-14) Blood Urea Nitrogen 27 mg/dL (8-26) Creatinine 1.8 mg/dL (0.7-1.3) Estimated GFR (Cockcroft-Gault) 35.9 Glucose Level 87 mg/dL (70-99) Calcium Level 8.1 mg/dL (8.5-10.1) Microbiology 06/27/20 Blood Culture - Preliminary, Resulted NO GROWTH AFTER 3 DAYS Medications Current Medications Acetaminophen (Tylenol) 650 mg PRN Q6HRS PRN PO MILD PAIN 1-3; Start 06/28/20 at 09:15 Aspirin (Ecotrin) 81 mg DAILY PO Last administered on 07/01/20 09:20; Start 06/28/20 at 09:00 Carvedilol (Coreg) 3.125 mg BIDWMEALS PO Last administered on 07/01/20 09:21; Start 06/28/20 at 09:00 Cyanocobalamin (Vitamin B-12) 1,000 mcg DAILY PO Last administered on 07/01/20 09:20; Start 06/28/20 at 09:00 Diclofenac Sodium (Voltaren) 1 roz BID TP Last administered on 07/01/20at 09:00; Start 06/28/20 at 09:00 Fluticasone Propionate (Flonase) 2 spray DAILY NS Last administered on 07/01/20at 09:00; Start 06/28/20 at 09:00 Guaifenesin (Mucinex) 600 mg BID PO Last administered on 07/01/20 09:21; Start 06/28/20 at 09:00 Hydralazine HCl (Apresoline) 25 mg BID PO Last administered on 07/01/20at 09:21; Start 06/28/20 at 09:00 Acetaminophen/ Hydrocodone Bitart (Lortab 7.5/325) 1 tab PRN Q6HRS PRN PO MODERATE - SEVERE PAIN Last administered on 07/01/20 09:53; Start 06/28/20 at 09:15 Mirtazapine (Remeron) 7.5 mg HS PO Last administered on 06/30/20 21:37; Start 06/28/20 at 21:00 Montelukast Sodium (Singulair) 10 mg HS PO Last administered on 06/30/20 21:37; Start 06/28/20 at 21:00 Simvastatin (Zocor) 20 mg HS PO Last administered on 06/30/20 21:37; Start 06/28/20 at 21:00 Albuterol Sulfate (Ventolin Neb Soln) 2.5 mg RTQID NEB Last administered on 07/01/20 08:00; Start 06/28/20 at 09:00 Budesonide (Pulmicort) 0.5 mg RTBID NEB Last administered on 07/01/20 08:00; Start 06/28/20 at 09:00 Calcium/Vitamin D (Oscal D 500mg/ 200uts) 1 tab DAILY PO Last administered on 07/01/20 09:20; Start 06/28/20 at 09:00 Doxazosin Mesylate (Cardura) 8 mg HS PO Last administered on 06/30/20 21:37; Start 06/28/20 at 21:00 Multivitamins (Thera M Plus) 1 tab DAILY PO Last administered on 07/01/20 09:20; Start 06/28/20 at 09:00 Pantoprazole Sodium (Protonix) 40 mg DAILYAC PO Last administered on 07/01/20 09:21; Start 06/28/20 at 09:00 Heparin Sodium (Porcine) (Heparin Sodium) 5,000 unit Q12HR SQ Last administered on 07/01/20 09:24; Start 06/28/20 at 09:00 Methylprednisolone Sodium Succinate (SOLU-Medrol 40MG VIAL) 40 mg DAILY10 ONCE IV Last administered on 06/28/20 10:43; Start 06/28/20 at 10:00; Stop 06/28/20 at 10:01; Status DC Ceftriaxone Sodium (Rocephin) 1 gm Q24H IVP Last administered on 06/30/20at 09:03; Start 06/28/20 at 10:00; Stop 06/30/20 at 10:23; Status DC Azithromycin 500 mg/Sodium Chloride 250 ml @ 250 mls/hr Q24H IV Last administered on 06/28/20at 11:21; Start 06/28/20 at 11:00; Stop 06/29/20 at 10:28; Status DC Sodium Chloride 1,000 ml @ 75 mls/hr [id number] IV Last administered on 06/29/20at 12:04; Start 06/28/20 at 09:45; Stop 07/01/20 at 09:13; Status DC Lactobacillus Rhamnosus (Culturelle) 1 cap BID PO Last administered on 07/01/20at 09:20; Start 06/29/20 at 21:00 Perflutren Protein Type A Microsphe (Optison) 0.66 mg STK-MED ONCE IV ; Start 06/30/20 at 07:38; Stop 06/30/20 at 07:39; Status DC Perflutren Protein Type A Microsphe (Optison) 0.66 mg 1X ONCE IV Last administered on 06/30/20at 07:51; Start 06/30/20 at 08:00; Stop 06/30/20 at 08:01; Status DC Prednisone (Prednisone) 20 mg DAILY PO ; Start 07/01/20 at 11:00 Active Scripts Active Culturelle (Lactobacillus Rhamnosus Gg) 1 Each Cap.sprink 1 Cap PO BID 7 Days Prednisone 20 Mg Tablet 20 Mg PO DAILY 7 Days Acyclovir 400 Mg Tablet 1 Tab PO BID Hydrocodone-Apap 7.5-325 (Hydrocodone Bit/Acetaminophen) 1 Tab Tablet 1 Tab PO PRN Q6HRS PRN 7 Days Tylenol (Acetaminophen) 325 Mg Tablet 650 Mg PO PRN Q6HRS PRN 30 Days Voltaren (Diclofenac Sodium) 100 Gm Gel..gram. 1 Roz TP BID 30 Days Vitamin B-12 (Cyanocobalamin (Vitamin B-12)) 1,000 Mcg Tablet 1,000 Mcg PO DAILY Reported Mucinex (Guaifenesin) 600 Mg Tablet.er 600 Mg PO BID Fluticasone Propionate Nasal Clinton (Fluticasone Propionate) 16 Gm Clinton.susp 2 [place] NS DAILY Aspir-Low (Aspirin) 81 Mg Tablet. 1 Tab PO DAILY Doxazosin Mesylate 8 Mg Tablet 1 Tab PO HS Omeprazole 40 Mg Capsule.dr 1 Cap PO DAILY Calcium 500-Vit D3 600 Tablet (Calcium Carbonate/Vitamin D3) 1 Each Tablet 1 Each PO DAILY Singulair Tablet (Montelukast Sodium) 10 Mg Tablet 10 Mg PO HS Centrum Silver Tablet (Multivits-Min/Fa/Lycopene/Lut) 1 Each Tablet 1 Each PO DAILY Carvedilol (Carvedilol) 3.125 Mg Tablet 1 Tab PO BID Hydralazine Hcl 25 Mg Tablet 1 Tab PO BID Mirtazapine 7.5 Mg Tablet 7.5 Mg PO HS Simvastatin 20 Mg Tablet 20 Mg PO HS Symbicort 160-4.5 Mcg Inhaler (Budesonide/Formoterol Fumarate) 10.2 Gm Hfa.aer.ad 2 Inhaler IH BID Albuterol Sulfate Conc Neb Soln (Albuterol Sulfate) 2.5 Mg/0.5 Ml Vial.neb 2.5 Mg IH [id number] Vitals/I & O Vital Sign - Last 24 Hours 06/30/20 06/30/20 06/30/20 06/30/20 11:00 11:44 14:11 15:00 Temp 97.7 97.7 97.7 97.7 Pulse 68 68 Resp 22 20 B/P (MAP) 134/69 (90) 144/69 (94) Pulse Ox 95 95 98 O2 Delivery Room Air Room Air Room Air Room Air 06/30/20 06/30/20 06/30/20 06/30/20 15:13 15:50 19:00 20:15 Temp 98.6 98.6 Pulse 71 Resp 18 B/P (MAP) 105/49 (67) Pulse Ox 95 97 O2 Delivery Room Air Room Air Room Air Room Air 06/30/20 06/30/20 06/30/20 06/30/20 20:29 20:30 21:37 23:28 Temp 99.2 99.2 Pulse 71 72 Resp 18 B/P (MAP) 105/49 133/67 (89) Pulse Ox 99 99 97 O2 Delivery Room Air Room Air Room Air 07/01/20 07/01/20 07/01/20 07/01/20 03:10 07:00 08:00 08:24 Temp 98.6 96.4 98.6 96.4 Pulse 82 67 Resp 16 18 B/P (MAP) 124/69 (87) 125/61 (82) Pulse Ox 94 95 94 O2 Delivery Room Air Room Air Room Air Room Air 07/01/20 07/01/20 09:21 09:21 Pulse 67 67 B/P (MAP) 125/61 125/61 Intake and Output 06/30/20 06/30/20 07/01/20 15:00 23:00 07:00 Intake Total 120 ml 200 ml 210 ml Output Total 300 ml 725 ml Balance -180 ml 200 ml -515 ml Justifications for Admission Other Justification ARI PORTILLO MD Jul 01, 2020 10:36
[2020-07-01 11:00] VITALS: BP 120/67
[2020-07-01] MEDS: predniSONE 20 MG TABLET PO SCH (11:00)
[2020-07-01 14:50] VITALS: BP 119/65
[2020-07-01 19:35] VITALS: BP 116/57
[2020-07-01 23:21] VITALS: BP 110/56
[2020-07-01] MEDS: MIRTAZAPINE 7.5 MG TABLET. PO SCH (23:44)
[2020-07-01] MEDS: DOXAZOSIN MESYLATE 4 MG TABLET. PO SCH (23:44)
[2020-07-01] MEDS: MONTELUKAST SODIUM 10 MG TABLET. PO SCH (23:45)
[2020-07-01] MEDS: SIMVASTATIN 20 MG TABLET PO SCH (23:46)
[2020-07-02] VITALS (7 sets, daily range): BP systolic 115–136; BP diastolic 56–76
[2020-07-02] MEDS: ALBUTEROL SULFATE 2.5 MG/3 ML NEBU. NEB SCH ×4 (08:28→20:45)
[2020-07-02] MEDS: BUDESONIDE 0.5 MG/2 ML NEBU. NEB SCH ×2 (08:28→20:45)
[2020-07-02] MEDS: CYANOCOBALAMIN (VITAMIN B-12) 1,000 MCG TABLET. PO SCH (08:29)
[2020-07-02] MEDS: CARVEDILOL 3.125 MG TABLET. PO SCH ×2 (08:31→17:24)
[2020-07-02] MEDS: predniSONE 20 MG TABLET PO SCH (08:31)
[2020-07-02] MEDS: ASPIRIN ENTERIC COATED 81 MG TABLET.DR. PO SCH (08:31)
[2020-07-02] MEDS: LACTOBACILLUS RHAMNOSUS GG 1 CAPSULE. PO SCH ×2 (08:31→21:13)
[2020-07-02] MEDS: MULTIVITAMIN with MINERAL TABLET. PO SCH (08:31)
[2020-07-02] MEDS: CALCIUM CARB/VIT D3 500/200 TABLET. PO SCH (08:31)
[2020-07-02] MEDS: PANTOPRAZOLE 40 MG TABLET.DR. PO SCH (08:32)
[2020-07-02] MEDS: FLUTICASONE 50MCG/NASAL SPRAY 16GM BOTTLE. NS SCH (08:36)
[2020-07-02] MEDS: DICLOFENAC SODIUM 1% TOPICAL GEL 100GM TUBE. TP SCH ×2 (08:36→21:18)
[2020-07-02] MEDS: HEPARIN for SUB-Q USE 5,000 UNIT/ML VIAL. SQ SCH ×2 (08:54→21:28)
[2020-07-02] MEDS: hydrALAZINE 25 MG TABLET PO SCH ×2 (09:00→21:17)
--- NOTE | 2020-07-02 11:24 | PDOC ---
PROGRESS NOTES Date of Service: DATE: 07/02/20 TIME: 11:22 Subjective Subjective feels better today Objective Objective Vital Signs Date Time Temp Pulse Resp B/P (MAP) Pulse Ox O2 Delivery O2 Flow Rate FiO2 07/02/20 08:39 97 Room Air 07/02/20 08:31 66 116/56 07/02/20 07:00 98.1 18 98.1 Intake and Output 07/02/20 07:00 Intake Total 620 ml Output Total 300 ml Balance 320 ml Intake Oral 620 ml Output Urine Total 300 ml # Voids 1 Physical Exam Abdomen: Normal bowel sounds Heart: Regular rate Extremities: No cyanosis, No edema General: No acute distress HEENT: Atraumatic, Mucous membr. moist/pink Lungs: Other (Mildly decreased breath sounds) MUSCULOSKELETAL: Osteoarthritic changes both hands Neuro: Normal speech, Sensation intact Psych/Mental Status: Mental status NL, Mood NL Skin: No breakdown, No significant lesion Diagnosis Problem List Problems Medical Problems: (1) Accidental fall Status: Acute (2) CKD (chronic kidney disease) Status: Acute (3) NSTEMI (non-ST elevated myocardial infarction) Status: Acute Assessment Assessment 1. Acute bronchitis. 2. Exacerbation of chronic obstructive pulmonary disease. 3. Non-ST elevation myocardial infarction, likely due to type 2 strain due to demand ischemia. 4. Recurrent falls. 5. Check for rhabdomyolysis. Check CPK. 6. Acute renal failure with chronic kidney disease 3. His baseline creatinine is around 1.6. 7. Coronary artery disease, history of 2 stents placed. 8. History of diabetes mellitus type 2. 9. Hypertension with chronic kidney disease 3, baseline creatinine 1.6. 10. Physical deconditioning. 11. Acute metabolic encephalopathy. 12. Carotid artery disease. 13. Osteoarthritis. 14. History of L3 compression fracture. 15. Anemia. 16. Anxiety. PLAN: waiting for placement. pt/ot. check labs. 1. Acute bronchitis. Start IV Rocephin and Zithromax. I will consult Dr. Ribeiro for pulmonary evaluation and management and Dr. Darrius Dye for Infectious Disease evaluation and management. Also, check blood cultures x 2. COVID-19 PCR test was negative. Blood cultures are negative. IV Rocephin has been discontinued. Observe him off the antibiotics. 2. Acute renal failure with chronic kidney disease 3. Start IV fluids, IV normal saline, but give it gently and cautiously due to history of fluid retention and coronary artery disease. BNP is 4029. BUN today is 31 and creatinine 2.0. Patient is clinically dry. 3. Recurrent falls. Order physical therapy and occupational therapy. Consult Dr. Bass for rehab evaluation and management. History of systolic congestive heart failure with ejection fraction of 35 to 40% previously. Echocardiogram pending Anemia-hemoglobin decreased to 8.9. 4. Check CPK and repeat labs in a.m. Discussed with staff. 5. Acute exacerbation of COPD. IV steroids discontinued. Changed to oral prednisone.. He is on prednisone 10 mg daily at home. We will hold that for now. For details, please refer to the orders. Prognosis of this patient is very poor due to his multiple medical problems. Discharge to [facility] unit when accepted. Plan Plan of Care Problems Medical Problems: (1) Accidental fall Status: Acute (2) CKD (chronic kidney disease) Status: Acute (3) NSTEMI (non-ST elevated myocardial infarction) Status: Acute Comment Review of Relevant I have reviewed the following items tawnya (where applicable) has been applied. Labs Microbiology 06/27/20 Blood Culture - Preliminary, Resulted NO GROWTH AFTER 4 DAYS Vitals/I & O Vital Sign - Last 24 Hours 07/01/20 07/01/20 07/01/20 07/01/20 12:32 14:50 16:14 17:25 Temp 97.0 97.0 Pulse 62 62 Resp 18 B/P (MAP) 119/65 (83) 119/65 Pulse Ox 95 O2 Delivery Room Air Room Air Room Air 07/01/20 07/01/20 07/01/20 07/01/20 19:35 20:00 21:31 21:33 Temp 98.4 98.4 Pulse 68 Resp 16 B/P (MAP) 116/57 (76) Pulse Ox 95 96 96 O2 Delivery Room Air Room Air Room Air Room Air 07/01/20 07/01/20 07/01/20 07/01/20 23:21 23:44 23:47 23:48 Temp 98.5 98.5 Pulse 72 72 72 Resp 18 20 B/P (MAP) 110/56 (74) 110/56 110/56 Pulse Ox 96 96 O2 Delivery Room Air Room Air 07/02/20 07/02/20 07/02/20 07/02/20 00:29 00:48 03:05 07:00 Temp 98.0 97.7 98.1 98.0 97.7 98.1 Pulse 63 64 62 Resp 18 18 18 B/P (MAP) 134/76 (95) 115/64 (81) 116/56 (76) Pulse Ox 96 96 98 95 O2 Delivery Room Air Room Air Room Air Room Air 07/02/20 07/02/20 07/02/20 08:31 08:37 08:39 Pulse 66 B/P (MAP) 116/56 Pulse Ox 97 97 O2 Delivery Room Air Room Air Intake and Output 07/01/20 07/01/20 07/02/20 15:00 23:00 07:00 Intake Total 200 ml 320 ml 100 ml Output Total 300 ml Balance 200 ml 320 ml -200 ml Justifications for Admission Other Justification BELEN IVORY MD Jul 02, 2020 11:24
[2020-07-02] MEDS: SIMVASTATIN 20 MG TABLET PO SCH (21:13)
[2020-07-02] MEDS: DOXAZOSIN MESYLATE 4 MG TABLET. PO SCH (21:16)
[2020-07-02] MEDS: MONTELUKAST SODIUM 10 MG TABLET. PO SCH (21:16)
[2020-07-02] MEDS: MIRTAZAPINE 7.5 MG TABLET. PO SCH (21:16)
[2020-07-02] MEDS: HYDROcodone/APAP 7.5/325MG 1 TAB TABLET PO PRN (21:17)
[2020-07-03 03:20] VITALS: BP 142/62
[2020-07-03 07:00] VITALS: BP 132/64
[2020-07-03] MEDS: ALBUTEROL SULFATE 2.5 MG/3 ML NEBU. NEB SCH ×3 (07:20→15:10)
[2020-07-03] MEDS: BUDESONIDE 0.5 MG/2 ML NEBU. NEB SCH ×2 (07:20→20:25)
[2020-07-03 08:42] LABS: CALCIUM 8.5 mg/dL (8.5-10.1); GFR 31.8
--- NOTE | 2020-07-03 09:11 | PDOC ---
PROGRESS NOTES Date of Service DATE: 07/03/20 TIME: 09:09 Subjective Subjective No new complaints. Objective Objective Vital Signs Date Time Temp Pulse Resp B/P (MAP) Pulse Ox O2 Delivery O2 Flow Rate FiO2 07/03/20 07:21 97 Room Air 07/03/20 07:00 98.0 51 20 132/64 (86) 98.0 Intake and Output 07/03/20 07:00 Intake Total 1030 ml Output Total 950 ml Balance 80 ml Intake Oral 1030 ml Output Urine Total 950 ml # Voids 2 Physical Exam Physical Exam H eis alert,sitting at edge of bed and using urinal and he did walk for 250' wiht roller walker with physical therapy. Assessment Assessment Problems Medical Problems: (1) Accidental fall Status: Acute (2) CKD (chronic kidney disease) Status: Acute (3) NSTEMI (non-ST elevated myocardial infarction) Status: Acute Plan Plan of Care Waiting for transfer to SNF. Comment Review of Relevant I have reviewed the following items tawnya (where applicable) has been applied. Labs Laboratory Tests Test 07/03/20 06:00 Sodium Level 144 mmol/L (136-145) Potassium Level 4.0 mmol/L (3.5-5.1) Chloride Level 108 mmol/L (98-107) Carbon Dioxide Level 29 mmol/L (21-32) Anion Gap 7 (6-14) Blood Urea Nitrogen 37 mg/dL (8-26) Creatinine 2.0 mg/dL (0.7-1.3) Estimated GFR (Cockcroft-Gault) 31.8 Glucose Level 94 mg/dL (70-99) Calcium Level 8.5 mg/dL (8.5-10.1) Laboratory Tests Test 07/03/20 06:00 Sodium Level 144 mmol/L (136-145) Potassium Level 4.0 mmol/L (3.5-5.1) Chloride Level 108 mmol/L (98-107) Carbon Dioxide Level 29 mmol/L (21-32) Anion Gap 7 (6-14) Blood Urea Nitrogen 37 mg/dL (8-26) Creatinine 2.0 mg/dL (0.7-1.3) Estimated GFR (Cockcroft-Gault) 31.8 Glucose Level 94 mg/dL (70-99) Calcium Level 8.5 mg/dL (8.5-10.1) Microbiology 06/27/20 Blood Culture - Preliminary, Resulted NO GROWTH AFTER 4 DAYS Medications Current Medications Acetaminophen (Tylenol) 650 mg PRN Q6HRS PRN PO MILD PAIN 1-3; Start 06/28/20 at 09:15 Aspirin (Ecotrin) 81 mg DAILY PO Last administered on 07/02/20at 08:31; Start 06/28/20 at 09:00 Carvedilol (Coreg) 3.125 mg BIDWMEALS PO Last administered on 07/02/20at 17:24; Start 06/28/20 at 09:00 Cyanocobalamin (Vitamin B-12) 1,000 mcg DAILY PO Last administered on 07/02/20 08:29; Start 06/28/20 at 09:00 Diclofenac Sodium (Voltaren) 1 roz BID TP Last administered on 07/02/20 21:18; Start 06/28/20 at 09:00 Fluticasone Propionate (Flonase) 2 spray DAILY NS Last administered on 07/02/20at 08:36; Start 06/28/20 at 09:00 Guaifenesin (Mucinex) 600 mg BID PO Last administered on 07/02/20 21:14; Start 06/28/20 at 09:00 Hydralazine HCl (Apresoline) 25 mg BID PO Last administered on 07/02/20 21:17; Start 06/28/20 at 09:00 Acetaminophen/ Hydrocodone Bitart (Lortab 7.5/325) 1 tab PRN Q6HRS PRN PO MODERATE - SEVERE PAIN Last administered on 07/02/20 21:17; Start 06/28/20 at 09:15 Mirtazapine (Remeron) 7.5 mg HS PO Last administered on 07/02/20 21:16; Start 06/28/20 at 21:00 Montelukast Sodium (Singulair) 10 mg HS PO Last administered on 07/02/20 21:16; Start 06/28/20 at 21:00 Simvastatin (Zocor) 20 mg HS PO Last administered on 07/02/20 21:13; Start 06/28/20 at 21:00 Albuterol Sulfate (Ventolin Neb Soln) 2.5 mg RTQID NEB Last administered on 07/03/20at 07:20; Start 06/28/20 at 09:00 Budesonide (Pulmicort) 0.5 mg RTBID NEB Last administered on 07/03/20at 07:20; Start 06/28/20 at 09:00 Calcium/Vitamin D (Oscal D 500mg/ 200uts) 1 tab DAILY PO Last administered on 07/02/20at 08:31; Start 06/28/20 at 09:00 Doxazosin Mesylate (Cardura) 8 mg HS PO Last administered on 07/02/20at 21:16; Start 06/28/20 at 21:00 Multivitamins (Thera M Plus) 1 tab DAILY PO Last administered on 07/02/20at 08:31; Start 06/28/20 at 09:00 Pantoprazole Sodium (Protonix) 40 mg DAILYAC PO Last administered on 07/02/20at 08:32; Start 06/28/20 at 09:00 Heparin Sodium (Porcine) (Heparin Sodium) 5,000 unit Q12HR SQ Last administered on 07/02/20at 21:28; Start 06/28/20 at 09:00 Methylprednisolone Sodium Succinate (SOLU-Medrol 40MG VIAL) 40 mg DAILY10 ONCE IV Last administered on 06/28/20at 10:43; Start 06/28/20 at 10:00; Stop 06/28/20 at 10:01; Status DC Ceftriaxone Sodium (Rocephin) 1 gm Q24H IVP Last administered on 06/30/20at 09:03; Start 06/28/20 at 10:00; Stop 06/30/20 at 10:23; Status DC Azithromycin 500 mg/Sodium Chloride 250 ml @ 250 mls/hr Q24H IV Last administered on 06/28/20at 11:21; Start 06/28/20 at 11:00; Stop 06/29/20 at 10:28; Status DC Sodium Chloride 1,000 ml @ 75 mls/hr [id number] IV Last administered on 06/29/20at 12:04; Start 06/28/20 at 09:45; Stop 07/01/20 at 09:13; Status DC Lactobacillus Rhamnosus (Culturelle) 1 cap BID PO Last administered on 07/02/20at 21:13; Start 06/29/20 at 21:00 Perflutren Protein Type A Microsphe (Optison) 0.66 mg STK-MED ONCE IV ; Start 06/30/20 at 07:38; Stop 06/30/20 at 07:39; Status DC Perflutren Protein Type A Microsphe (Optison) 0.66 mg 1X ONCE IV Last administered on 06/30/20at 07:51; Start 06/30/20 at 08:00; Stop 06/30/20 at 08:01; Status DC Prednisone (Prednisone) 20 mg DAILY PO Last administered on 07/02/20at 08:31; Start 07/01/20 at 11:00 Polyethylene Glycol (miraLAX PACKET) 17 gm PRN DAILY PRN PO CONSTIPATION; Start 07/02/20 at 13:15 Active Scripts Active Culturelle (Lactobacillus Rhamnosus Gg) 1 Each Cap.sprink 1 Cap PO BID 7 Days Prednisone 20 Mg Tablet 20 Mg PO DAILY 7 Days Acyclovir 400 Mg Tablet 1 Tab PO BID Hydrocodone-Apap 7.5-325 (Hydrocodone Bit/Acetaminophen) 1 Tab Tablet 1 Tab PO PRN Q6HRS PRN 7 Days Tylenol (Acetaminophen) 325 Mg Tablet 650 Mg PO PRN Q6HRS PRN 30 Days Voltaren (Diclofenac Sodium) 100 Gm Gel..gram. 1 Roz TP BID 30 Days Vitamin B-12 (Cyanocobalamin (Vitamin B-12)) 1,000 Mcg Tablet 1,000 Mcg PO DAILY Reported Mucinex (Guaifenesin) 600 Mg Tablet.er 600 Mg PO BID Fluticasone Propionate Nasal [place] (Fluticasone Propionate) 16 Gm [place].susp 2 [place] NS DAILY Aspir-Low (Aspirin) 81 Mg Tablet.dr 1 Tab PO DAILY Doxazosin Mesylate 8 Mg Tablet 1 Tab PO HS Omeprazole 40 Mg Capsule.dr 1 Cap PO DAILY Calcium 500-Vit D3 600 Tablet (Calcium Carbonate/Vitamin D3) 1 Each Tablet 1 Each PO DAILY Singulair Tablet (Montelukast Sodium) 10 Mg Tablet 10 Mg PO HS Centrum Silver Tablet (Multivits-Min/Fa/Lycopene/Lut) 1 Each Tablet 1 Each PO DAILY Carvedilol (Carvedilol) 3.125 Mg Tablet 1 Tab PO BID Hydralazine Hcl 25 Mg Tablet 1 Tab PO BID Mirtazapine 7.5 Mg Tablet 7.5 Mg PO HS Simvastatin 20 Mg Tablet 20 Mg PO HS Symbicort 160-4.5 Mcg Inhaler (Budesonide/Formoterol Fumarate) 10.2 Gm Hfa.aer.ad 2 Inhaler IH BID Albuterol Sulfate Conc Neb Soln (Albuterol Sulfate) 2.5 Mg/0.5 Ml Vial.neb 2.5 Mg IH [id number] Vitals/I & O Vital Sign - Last 24 Hours 07/02/20 07/02/20 07/02/20 07/02/20 11:00 11:42 15:00 15:30 Temp 98.3 98.5 98.3 98.5 Pulse 63 61 Resp 20 20 B/P (MAP) 134/65 (88) 120/57 (78) Pulse Ox 97 96 O2 Delivery Room Air Room Air Room Air Room Air 07/02/20 07/02/20 07/02/20 07/02/20 17:24 19:40 20:00 20:47 Temp 97.9 97.9 Pulse 61 63 Resp 18 B/P (MAP) 120/57 136/59 (84) Pulse Ox 96 97 O2 Delivery Room Air Room Air Room Air 07/02/20 07/02/20 07/02/20 07/02/20 21:16 21:17 21:17 22:17 Pulse 63 63 Resp 20 18 B/P (MAP) 136/59 136/59 Pulse Ox 97 97 O2 Delivery Room Air Room Air 07/02/20 07/03/20 07/03/20 07/03/20 22:30 03:20 07:00 07:21 Temp 98.2 97.7 98.0 98.2 97.7 98.0 Pulse 64 50 51 Resp 20 20 20 B/P (MAP) 134/63 (86) 142/62 (88) 132/64 (86) Pulse Ox 97 97 95 97 O2 Delivery Room Air Room Air Room Air Room Air Intake and Output 07/02/20 07/02/20 07/03/20 15:00 23:00 07:00 Intake Total 630 ml 300 ml 100 ml Output Total 200 ml 550 ml 200 ml Balance 430 ml -250 ml -100 ml Justifications for Admission Other Justification ARI PORTILLO MD Jul 03, 2020 09:10
[2020-07-03] MEDS: DICLOFENAC SODIUM 1% TOPICAL GEL 100GM TUBE. TP SCH ×2 (09:31→21:00)
[2020-07-03] MEDS: FLUTICASONE 50MCG/NASAL SPRAY 16GM BOTTLE. NS SCH (09:31)
[2020-07-03] MEDS: CALCIUM CARB/VIT D3 500/200 TABLET. PO SCH (09:32)
[2020-07-03] MEDS: MULTIVITAMIN with MINERAL TABLET. PO SCH (09:33)
[2020-07-03] MEDS: CARVEDILOL 3.125 MG TABLET. PO SCH ×2 (09:33→18:15)
[2020-07-03] MEDS: predniSONE 20 MG TABLET PO SCH (09:33)
[2020-07-03] MEDS: ASPIRIN ENTERIC COATED 81 MG TABLET.DR. PO SCH (09:33)
[2020-07-03] MEDS: CYANOCOBALAMIN (VITAMIN B-12) 1,000 MCG TABLET. PO SCH (09:33)
[2020-07-03] MEDS: LACTOBACILLUS RHAMNOSUS GG 1 CAPSULE. PO SCH ×2 (09:33→21:02)
[2020-07-03] MEDS: PANTOPRAZOLE 40 MG TABLET.DR. PO SCH (09:34)
[2020-07-03] MEDS: hydrALAZINE 25 MG TABLET PO SCH ×2 (09:34→21:01)
--- NOTE | 2020-07-03 09:50 | PDOC ---
IM PROGRESS NOTES- Subjective Subjective Feeling better. Cough is improving. Objective Vitals/I&O Vital Signs Date Time Temp Pulse Resp B/P (MAP) Pulse Ox O2 Delivery O2 Flow Rate FiO2 07/03/20 07:21 97 Room Air 07/03/20 07:00 98.0 51 20 132/64 (86) 98.0 I & O 07/02/20 07/02/20 07/03/20 15:00 23:00 07:00 Intake Total 630 ml 300 ml 100 ml Output Total 200 ml 550 ml 200 ml Balance 430 ml -250 ml -100 ml Physical Exam Physical Exam General appearance - alert,chronically ill appearing, in mild respiratory distress and forgetful Mental Status - alert, forgetful Head - normal Chest -increased air entry, no wheezing. Heart - S1 and S2 normal Abdomen - soft, non tender, Neurological - alert and forgetful. Mental status is improving. Musculoskeletal -generalized weakness Extremities - no pedal edema Skin - warm and dry Labs Laboratory Tests Test 07/03/20 06:00 Sodium Level 144 mmol/L (136-145) Potassium Level 4.0 mmol/L (3.5-5.1) Chloride Level 108 mmol/L (98-107) H Carbon Dioxide Level 29 mmol/L (21-32) Anion Gap 7 (6-14) Blood Urea Nitrogen 37 mg/dL (8-26) H Creatinine 2.0 mg/dL (0.7-1.3) H Estimated GFR (Cockcroft-Gault) 31.8 Glucose Level 94 mg/dL (70-99) Calcium Level 8.5 mg/dL (8.5-10.1) Laboratory Tests 07/03/20 06:00 Assessment Assessment 1. Acute bronchitis. 2. Exacerbation of chronic obstructive pulmonary disease. 3. Non-ST elevation myocardial infarction, likely due to type 2 strain due to demand ischemia. 4. Recurrent falls. 5. Check for rhabdomyolysis. Check CPK. 6. Acute renal failure with chronic kidney disease 3. His baseline creatinine is around 1.6. 7. Coronary artery disease, history of 2 stents placed. 8. History of diabetes mellitus type 2. 9. Hypertension with chronic kidney disease 3, baseline creatinine 1.6. 10. Physical deconditioning. 11. Acute metabolic encephalopathy. 12. Carotid artery disease. 13. Osteoarthritis. 14. History of L3 compression fracture. 15. Anemia. 16. Anxiety. PLAN: waiting for placement. pt/ot. check labs. 1. Acute bronchitis. Start IV Rocephin and Zithromax. I will consult Dr. Ribeiro for pulmonary evaluation and management and Dr. Darrius Dye for Infectious Disease evaluation and management. Also, check blood cultures x 2. COVID-19 PCR test was negative. Blood cultures are negative. IV Rocephin has been discontinued. Observe him off the antibiotics. 2. Acute renal failure with chronic kidney disease 3. Start IV fluids, IV normal saline, but give it gently and cautiously due to history of fluid retention and coronary artery disease. BNP is 4029. BUN today is 37 and creatinine 2.0 BUN is increasing likely due to use of steroids. Creatinine is stable. 3. Recurrent falls. Order physical therapy and occupational therapy. Consult Dr. Bass for rehab evaluation and management. History of systolic congestive heart failure with ejection fraction of 35 to 40% previously. Echocardiogram pending Anemia-hemoglobin decreased to 8.9. 4. Check CPK and repeat labs in a.m. Discussed with staff. 5. Acute exacerbation of COPD. IV steroids discontinued. Changed to oral prednisone.. He is on prednisone 10 mg daily at home. We will hold that for now. For details, please refer to the orders. Prognosis of this patient is very poor due to his multiple medical problems. Discharge to halfway unit when accepted. Plan Plan For more details regarding further plans, please refer to the orders. Justifications for Admission Other Justification MARCELLUS FIERRO MD Jul 03, 2020 09:50
[2020-07-03] MEDS: HEPARIN for SUB-Q USE 5,000 UNIT/ML VIAL. SQ SCH ×2 (09:53→21:06)
[2020-07-03 10:13] VITALS: BP 113/54
--- NOTE | 2020-07-03 12:03 | PDOC ---
FERNANDO BELCHER CALL WORKER PERSON 07/03/20 1203: CARDIO Progress Notes Date and Time Date of Service 07/03/20 Time of Evaluation 1200 Subjective Subjective: No Chest Pain, No shortness of breath, No Palpitations Vitals Vitals Vital Signs Date Time Temp Pulse Resp B/P (MAP) Pulse Ox O2 Delivery O2 Flow Rate FiO2 07/03/20 11:38 97 Room Air 07/03/20 10:13 97.9 57 20 113/54 (73) 97.9 Weight Weight [ ] Input and Output Intake and Output Intake and Output 07/03/20 07:00 Intake Total 1030 ml Output Total 950 ml Balance 80 ml Intake Oral 1030 ml Output Urine Total 950 ml # Voids 2 Laboratory Labs Laboratory Tests Test 07/03/20 06:00 Sodium Level 144 mmol/L (136-145) Potassium Level 4.0 mmol/L (3.5-5.1) Chloride Level 108 mmol/L (98-107) Carbon Dioxide Level 29 mmol/L (21-32) Anion Gap 7 (6-14) Blood Urea Nitrogen 37 mg/dL (8-26) Creatinine 2.0 mg/dL (0.7-1.3) Estimated GFR (Cockcroft-Gault) 31.8 Glucose Level 94 mg/dL (70-99) Calcium Level 8.5 mg/dL (8.5-10.1) Microbiology Micro Microbiology 06/27/20 Blood Culture - Final, Complete NO GROWTH AFTER 5 DAYS Physical Exam HEENT: Neck Supple W Full Motion Chest: Symmetric LUNGS: Other (diminished bases) Heart: RRR Abdomen: Soft N/T Extremities: No Edema Neurology: alert, follow commands Assessment Assessment 1. Nontraumatic mechanical fall/weakness: no syncopal spell 2. LLE pain: likely from lumbar radiculopathy with noted spinal stenosis/HNP vs DVT vs strain from fall, defer to PCP 3. CARMELINA on CKD; improved with IVFs 4. COPD: stable 5. Known ICM: Echo shows LVEF 35%. The distal half of the LV is severely hypokinetic consistent with prior LAD territory infarct. 6. Hx of GIB 7. 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 LE US negative for DVT 8. HTN: controlled 9. HLP; statin 10. COPD: stable 11. Chronic systolic/diastolic CHF: clinically compensated 12. Remote PAFIB: maintaining SR 13. Mild troponin elevation: peaked at 0.06, no acute changes to EKG by comparison, possibly demand mediated type 2 with fall and renal insufficiency. No cardiopulmonary symptoms. 14. CAD: STEMI in 2011 with BMS to LAD and RCA. clinically stable 15. PUI; COVID negative Recommendations Secondary prevention Continue ASA, statin and BB Poor candidate for anticoagulation therapy due to history, predisposition to GIB Could consider for outpt stress test. Supportive care Okay to discharge from a CV standpoint. Justicifation of Admission Dx: Justifications for Admission: Justification of Admission Dx: Comment: Sepsis: Infection GAL BURTON MD 07/03/20 1601: CARDIO Progress Notes Assessment Assessment Patient seen and examined He looks and feels better today. I agree with our nurse practitioners assessment and plan. CARMELINA on CKD; improved with IVFs COPD: stable Known ICM: Echo shows LVEF 35%. The distal half of the LV is severely hypokinetic consistent with prior LAD territory infarct. Outpatient follow-up. 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 LE US negative for DVT HTN: controlled HLP; statin Chronic systolic/diastolic CHF: clinically compensated Remote PAFIB: maintaining SR Mild troponin elevation: peaked at 0.06, no acute changes to EKG by comparison, demand mediated type 2 with fall and renal insufficiency. No cardiopulmonary symptoms. CAD: STEMI in 2011 with BMS to LAD and RCA. clinically stable YEFERNANDO MEJIA TUCKER Jul 03, 2020 12:03 GAL BURTON MD Jul 03, 2020 16:01
[2020-07-03 14:53] VITALS: BP 130/67
[2020-07-03 19:50] VITALS: BP 132/93
[2020-07-03] MEDS: SIMVASTATIN 20 MG TABLET PO SCH (21:01)
[2020-07-03] MEDS: DOXAZOSIN MESYLATE 4 MG TABLET. PO SCH (21:01)
[2020-07-03] MEDS: MIRTAZAPINE 7.5 MG TABLET. PO SCH (21:01)
[2020-07-03] MEDS: MONTELUKAST SODIUM 10 MG TABLET. PO SCH (21:02)
[2020-07-03] MEDS: HYDROcodone/APAP 7.5/325MG 1 TAB TABLET PO PRN (21:43)
[2020-07-03 22:40] VITALS: BP 133/60
[2020-07-04 03:20] VITALS: BP 134/77
[2020-07-04 07:00] VITALS: BP 114/56
[2020-07-04] MEDS: BUDESONIDE 0.5 MG/2 ML NEBU. NEB SCH ×2 (07:50→21:01)
[2020-07-04] MEDS: ALBUTEROL SULFATE 2.5 MG/3 ML NEBU. NEB SCH ×4 (07:50→21:02)
[2020-07-04] MEDS: LACTOBACILLUS RHAMNOSUS GG 1 CAPSULE. PO SCH ×2 (08:21→20:19)
[2020-07-04] MEDS: DOXAZOSIN MESYLATE 4 MG TABLET. PO SCH (08:21)
[2020-07-04] MEDS: CALCIUM CARB/VIT D3 500/200 TABLET. PO SCH (08:22)
[2020-07-04] MEDS: ASPIRIN ENTERIC COATED 81 MG TABLET.DR. PO SCH (08:22)
[2020-07-04] MEDS: predniSONE 20 MG TABLET PO SCH (08:22)
[2020-07-04] MEDS: MULTIVITAMIN with MINERAL TABLET. PO SCH (08:22)
[2020-07-04] MEDS: PANTOPRAZOLE 40 MG TABLET.DR. PO SCH (08:22)
[2020-07-04] MEDS: CYANOCOBALAMIN (VITAMIN B-12) 1,000 MCG TABLET. PO SCH (08:22)
[2020-07-04] MEDS: CARVEDILOL 3.125 MG TABLET. PO SCH ×2 (08:23→16:41)
[2020-07-04] MEDS: hydrALAZINE 25 MG TABLET PO SCH ×2 (08:23→20:22)
[2020-07-04] MEDS: HEPARIN for SUB-Q USE 5,000 UNIT/ML VIAL. SQ SCH ×2 (08:34→20:25)
--- NOTE | 2020-07-04 09:26 | PDOC ---
IM PROGRESS NOTES- Subjective Subjective Feeling better. Cough is improving. Objective Vitals/I&O Vital Signs Date Time Temp Pulse Resp B/P (MAP) Pulse Ox O2 Delivery O2 Flow Rate FiO2 07/04/20 08:23 66 114/56 07/04/20 07:45 96 Room Air 07/04/20 03:20 98.1 18 98.1 I & O 07/03/20 07/03/20 07/04/20 15:00 23:00 07:00 Intake Total 280 ml 800 ml 0 ml Output Total 650 ml 550 ml Balance -370 ml 250 ml 0 ml Physical Exam Physical Exam General appearance - alert,chronically ill appearing, in mild respiratory distress and forgetful Mental Status - alert, forgetful Head - normal Chest -increased air entry, no wheezing. Heart - S1 and S2 normal Abdomen - soft, non tender, Neurological - alert and forgetful. Mental status is improving. Musculoskeletal -generalized weakness Extremities - no pedal edema Skin - warm and dry Assessment Assessment 1. Acute bronchitis. 2. Exacerbation of chronic obstructive pulmonary disease. 3. Non-ST elevation myocardial infarction, likely due to type 2 strain due to demand ischemia. 4. Recurrent falls. 5. Check for rhabdomyolysis. Check CPK. 6. Acute renal failure with chronic kidney disease 3. His baseline creatinine is around 1.6. 7. Coronary artery disease, history of 2 stents placed. 8. History of diabetes mellitus type 2. 9. Hypertension with chronic kidney disease 3, baseline creatinine 1.6. 10. Physical deconditioning. 11. Acute metabolic encephalopathy. 12. Carotid artery disease. 13. Osteoarthritis. 14. History of L3 compression fracture. 15. Anemia. 16. Anxiety. PLAN: waiting for placement. pt/ot. check labs. 1. Acute bronchitis. Start IV Rocephin and Zithromax. I will consult Dr. Ribeiro for pulmonary evaluation and management and Dr. Darrius Dye for Infectious Disease evaluation and management. Also, check blood cultures x 2. COVID-19 PCR test was negative. Blood cultures are negative. IV Rocephin has been discontinued. Observe him off the antibiotics. 2. Acute renal failure with chronic kidney disease 3. Start IV fluids, IV normal saline, but give it gently and cautiously due to history of fluid retention and coronary artery disease. BNP is 4029. BUN today is 37 and creatinine 2.0 BUN is increasing likely due to use of steroids. Creatinine is stable. 3. Recurrent falls. Order physical therapy and occupational therapy. Consult Dr. Bass for rehab evaluation and management. History of systolic congestive heart failure with ejection fraction of 35 to 40% previously. Echocardiogram pending Anemia-hemoglobin decreased to 8.9. 4. Check CPK and repeat labs in a.m. Discussed with staff. 5. Acute exacerbation of COPD. IV steroids discontinued. Changed to oral prednisone.. He is on prednisone 10 mg daily at home. We will hold that for now. For details, please refer to the orders. Prognosis of this patient is very poor due to his multiple medical problems. Discharge to intermediate unit when accepted. Awaiting COVID-19 test. Plan Plan For more details regarding further plans, please refer to the orders. Justifications for Admission Other Justification MARCELLUS FIERRO MD Jul 04, 2020 09:26
[2020-07-04] MEDS: MULTIVITAMIN I-VITE TABLET. PO SCH (10:19)
[2020-07-04 11:00] VITALS: BP 118/52
[2020-07-04] MEDS: FLUTICASONE 50MCG/NASAL SPRAY 16GM BOTTLE. NS SCH (11:02)
[2020-07-04] MEDS: DICLOFENAC SODIUM 1% TOPICAL GEL 100GM TUBE. TP SCH ×2 (11:03→20:18)
--- NOTE | 2020-07-04 12:27 | PDOC ---
PROGRESS NOTES Date of Service DATE: 07/04/20 TIME: 12:22 Subjective Subjective he c/o neck pain,burning sensation over left forearm and left leg. Objective Objective Vital Signs Date Time Temp Pulse Resp B/P (MAP) Pulse Ox O2 Delivery O2 Flow Rate FiO2 07/04/20 11:41 96 Room Air 07/04/20 11:00 97.8 58 18 118/52 (74) 97.8 Intake and Output 07/04/20 07:00 Intake Total 1080 ml Output Total 1200 ml Balance -120 ml Intake Oral 1080 ml Output Urine Total 1200 ml # Voids 2 Physical Exam Physical Exam He is alert,sitting in bedside chair and he did walk for 250' with roller walker with physical therapy yesterday. No significant tenderness to palpation over cervical spine area but he had tenderness to palpation over dorsal aspect of left forearm where there is bruised area of skin,probably from recent IV site and he also had redness of skin left anterior tibial compartment lower part wit edema of his feet and legs. Assessment Assessment Problems Medical Problems: (1) Accidental fall Status: Acute (2) CKD (chronic kidney disease) Status: Acute (3) NSTEMI (non-ST elevated myocardial infarction) Status: Acute Plan Plan of Care To try ice packs to left forearm and to try vascular boot to help ease left leg edema and redness. I spoke to . Comment Review of Relevant I have reviewed the following items tawnay (where applicable) has been applied. Labs Laboratory Tests Test 07/03/20 06:00 Sodium Level 144 mmol/L (136-145) Potassium Level 4.0 mmol/L (3.5-5.1) Chloride Level 108 mmol/L (98-107) Carbon Dioxide Level 29 mmol/L (21-32) Anion Gap 7 (6-14) Blood Urea Nitrogen 37 mg/dL (8-26) Creatinine 2.0 mg/dL (0.7-1.3) Estimated GFR (Cockcroft-Gault) 31.8 Glucose Level 94 mg/dL (70-99) Calcium Level 8.5 mg/dL (8.5-10.1) Microbiology 06/27/20 Blood Culture - Final, Complete NO GROWTH AFTER 5 DAYS Medications Current Medications Acetaminophen (Tylenol) 650 mg PRN Q6HRS PRN PO MILD PAIN 1-3; Start 06/28/20 at 09:15 Aspirin (Ecotrin) 81 mg DAILY PO Last administered on 07/04/20 08:22; Start 06/28/20 at 09:00 Carvedilol (Coreg) 3.125 mg BIDWMEALS PO Last administered on 07/04/20 08:23; Start 06/28/20 at 09:00 Cyanocobalamin (Vitamin B-12) 1,000 mcg DAILY PO Last administered on 07/04/20 08:22; Start 06/28/20 at 09:00 Diclofenac Sodium (Voltaren) 1 roz BID TP Last administered on 07/04/20 11:03; Start 06/28/20 at 09:00 Fluticasone Propionate (Flonase) 2 spray DAILY NS Last administered on 07/04/20 11:02; Start 06/28/20 at 09:00 Guaifenesin (Mucinex) 600 mg BID PO Last administered on 07/04/20 08:22; Start 06/28/20 at 09:00 Hydralazine HCl (Apresoline) 25 mg BID PO Last administered on 07/04/20 08:23; Start 06/28/20 at 09:00 Acetaminophen/ Hydrocodone Bitart (Lortab 7.5/325) 1 tab PRN Q6HRS PRN PO MODERATE - SEVERE PAIN Last administered on 07/03/20 21:43; Start 06/28/20 at 09:15 Mirtazapine (Remeron) 7.5 mg HS PO Last administered on 07/03/20 21:01; Start 06/28/20 at 21:00 Montelukast Sodium (Singulair) 10 mg HS PO Last administered on 07/03/20 21:02; Start 06/28/20 at 21:00 Simvastatin (Zocor) 20 mg HS PO Last administered on 07/03/20 21:01; Start at 21:00 Albuterol Sulfate (Ventolin Neb Soln) 2.5 mg RTQID NEB Last administered on 07/04/20 11:41; Start 06/28/20 at 09:00 Budesonide (Pulmicort) 0.5 mg RTBID NEB Last administered on 07/04/20 07:50; Start 06/28/20 at 09:00 Calcium/Vitamin D (Oscal D 500mg/ 200uts) 1 tab DAILY PO Last administered on 07/04/20at 08:22; Start 06/28/20 at 09:00 Doxazosin Mesylate (Cardura) 8 mg HS PO Last administered on 07/04/20at 08:21; Start 06/28/20 at 21:00 Multivitamins (Thera M Plus) 1 tab DAILY PO Last administered on 07/04/20at 08:22; Start 06/28/20 at 09:00 Pantoprazole Sodium (Protonix) 40 mg DAILYAC PO Last administered on 07/04/20at 08:22; Start 06/28/20 at 09:00 Heparin Sodium (Porcine) (Heparin Sodium) 5,000 unit Q12HR SQ Last administered on 07/04/20at 08:34; Start 06/28/20 at 09:00 Methylprednisolone Sodium Succinate (SOLU-Medrol 40MG VIAL) 40 mg DAILY10 ONCE IV Last administered on 06/28/20at 10:43; Start 06/28/20 at 10:00; Stop 06/28/20 at 10:01; Status DC Ceftriaxone Sodium (Rocephin) 1 gm Q24H IVP Last administered on 06/30/20at 09:03; Start 06/28/20 at 10:00; Stop 06/30/20 at 10:23; Status DC Azithromycin 500 mg/Sodium Chloride 250 ml @ 250 mls/hr Q24H IV Last administered on 06/28/20at 11:21; Start 06/28/20 at 11:00; Stop 06/29/20 at 10:28; Status DC Sodium Chloride 1,000 ml @ 75 mls/hr [id number] IV Last administered on 06/29/20at 12:04; Start 06/28/20 at 09:45; Stop 07/01/20 at 09:13; Status DC Lactobacillus Rhamnosus (Culturelle) 1 cap BID PO Last administered on 07/04/20at 08:21; Start 06/29/20 at 21:00 Perflutren Protein Type A Microsphe (Optison) 0.66 mg STK-MED ONCE IV ; Start 06/30/20 at 07:38; Stop 06/30/20 at 07:39; Status DC Perflutren Protein Type A Microsphe (Optison) 0.66 mg 1X ONCE IV Last administered on 06/30/20at 07:51; Start 06/30/20 at 08:00; Stop 06/30/20 at 08:01; Status DC Prednisone (Prednisone) 20 mg DAILY PO Last administered on 07/04/20at 08:22; Start 07/01/20 at 11:00 Polyethylene Glycol (miraLAX PACKET) 17 gm PRN DAILY PRN PO CONSTIPATION; Start 07/02/20 at 13:15 Multivitamins/ Minerals (I-Jordy) 1 tab DAILY PO ; Start 07/05/20 at 09:00; Status UNV Multivitamins/ Minerals (I-Jordy) 1 tab DAILY PO Last administered on 07/04/20at 10:19; Start 07/04/20 at 10:00 Active Scripts Active Culturelle (Lactobacillus Rhamnosus Gg) 1 Each Cap.sprink 1 Cap PO BID 7 Days Prednisone 20 Mg Tablet 20 Mg PO DAILY 7 Days Acyclovir 400 Mg Tablet 1 Tab PO BID Hydrocodone-Apap 7.5-325 (Hydrocodone Bit/Acetaminophen) 1 Tab Tablet 1 Tab PO PRN Q6HRS PRN 7 Days Tylenol (Acetaminophen) 325 Mg Tablet 650 Mg PO PRN Q6HRS PRN 30 Days Voltaren (Diclofenac Sodium) 100 Gm Gel..gram. 1 Roz TP BID 30 Days Vitamin B-12 (Cyanocobalamin (Vitamin B-12)) 1,000 Mcg Tablet 1,000 Mcg PO DAILY Reported Mucinex (Guaifenesin) 600 Mg Tablet.er 600 Mg PO BID Fluticasone Propionate Nasal Tracy (Fluticasone Propionate) 16 Gm Tracy.susp 2 Tracy NS DAILY Aspir-Low (Aspirin) 81 Mg Tablet.dr 1 Tab PO DAILY Doxazosin Mesylate 8 Mg Tablet 1 Tab PO HS Omeprazole 40 Mg Capsule.dr 1 Cap PO DAILY Calcium 500-Vit D3 600 Tablet (Calcium Carbonate/Vitamin D3) 1 Each Tablet 1 Each PO DAILY Singulair Tablet (Montelukast Sodium) 10 Mg Tablet 10 Mg PO HS Centrum Silver Tablet (Multivits-Min/Fa/Lycopene/Lut) 1 Each Tablet 1 Each PO DAILY Carvedilol (Carvedilol) 3.125 Mg Tablet 1 Tab PO BID Hydralazine Hcl 25 Mg Tablet 1 Tab PO BID Mirtazapine 7.5 Mg Tablet 7.5 Mg PO HS Simvastatin 20 Mg Tablet 20 Mg PO HS Symbicort 160-4.5 Mcg Inhaler (Budesonide/Formoterol Fumarate) 10.2 Gm Hfa.aer.ad 2 Inhaler IH BID Albuterol Sulfate Conc Neb Soln (Albuterol Sulfate) 2.5 Mg/0.5 Ml Vial.neb 2.5 Mg IH [id number] Vitals/I & O Vital Sign - Last 24 Hours 07/03/20 07/03/20 07/03/20 07/03/20 14:53 18:15 19:19 19:50 Temp 97.9 98.4 97.9 98.4 Pulse 59 58 61 Resp 20 18 B/P (MAP) 130/67 (88) 125/62 132/93 (106) Pulse Ox 99 96 O2 Delivery Room Air Room Air Room Air 07/03/20 07/03/20 07/03/20 07/03/20 20:53 21:01 21:01 21:43 Pulse 61 61 Resp 18 B/P (MAP) 132/93 132/93 Pulse Ox 97 O2 Delivery Room Air Room Air 07/03/20 07/03/20 07/04/20 07/04/20 22:40 23:00 03:20 07:00 Temp 98.0 98.1 98.2 98.0 98.1 98.2 Pulse 58 62 59 Resp 18 18 18 20 B/P (MAP) 133/60 (84) 134/77 (96) 114/56 (75) Pulse Ox 97 97 95 O2 Delivery Room Air Room Air Room Air Room Air 07/04/20 07/04/20 07/04/20 07/04/20 07:45 08:00 08:21 08:23 Pulse 66 66 B/P (MAP) 114/56 114/56 Pulse Ox 96 O2 Delivery Room Air Room Air 07/04/20 07/04/20 07/04/20 08:23 11:00 11:41 Temp 97.8 97.8 Pulse 66 58 Resp 18 B/P (MAP) 114/56 118/52 (74) Pulse Ox 97 96 O2 Delivery Room Air Room Air Intake and Output 07/03/20 07/03/20 07/04/20 15:00 23:00 07:00 Intake Total 280 ml 800 ml 0 ml Output Total 650 ml 550 ml Balance -370 ml 250 ml 0 ml Justifications for Admission Other Justification ARI PORTILLO MD Jul 04, 2020 12:27
[2020-07-04 15:00] VITALS: BP 112/55
[2020-07-04] MEDS: ACYCLOVIR 200 MG CAPSULE. PO SCH ×2 (15:20→20:30)
[2020-07-04] MEDS: TURMERIC CURCUMIN 500 MG PO SCH (16:39)
[2020-07-04] MEDS: POLYETHYLENE GLYCOL 3350 17 GM PACKET. PO PRN (16:50)
[2020-07-04 19:45] VITALS: BP 116/57
[2020-07-04] MEDS: MONTELUKAST SODIUM 10 MG TABLET. PO SCH (20:20)
[2020-07-04] MEDS: MIRTAZAPINE 7.5 MG TABLET. PO SCH (20:21)
[2020-07-04] MEDS: SIMVASTATIN 20 MG TABLET PO SCH (20:30)
[2020-07-04 23:50] VITALS: BP 111/54
[2020-07-05 07:00] VITALS: BP 122/59
[2020-07-05] MEDS: CYANOCOBALAMIN (VITAMIN B-12) 1,000 MCG TABLET. PO SCH (08:00)
[2020-07-05] MEDS: MULTIVITAMIN with MINERAL TABLET. PO SCH (08:00)
[2020-07-05] MEDS: MULTIVITAMIN I-VITE TABLET. PO SCH (08:00)
[2020-07-05] MEDS: POLYETHYLENE GLYCOL 3350 17 GM PACKET. PO PRN (08:01)
[2020-07-05] MEDS: LACTOBACILLUS RHAMNOSUS GG 1 CAPSULE. PO SCH (08:02)
[2020-07-05] MEDS: FLUTICASONE 50MCG/NASAL SPRAY 16GM BOTTLE. NS SCH (08:02)
[2020-07-05] MEDS: CALCIUM CARB/VIT D3 500/200 TABLET. PO SCH (08:02)
[2020-07-05] MEDS: ASPIRIN ENTERIC COATED 81 MG TABLET.DR. PO SCH (08:03)
[2020-07-05] MEDS: TURMERIC CURCUMIN 500 MG PO SCH (08:03)
[2020-07-05] MEDS: CARVEDILOL 3.125 MG TABLET. PO SCH (08:04)
[2020-07-05] MEDS: ACYCLOVIR 200 MG CAPSULE. PO SCH ×2 (08:04→14:00)
[2020-07-05] MEDS: PANTOPRAZOLE 40 MG TABLET.DR. PO SCH (08:05)
[2020-07-05] MEDS: hydrALAZINE 25 MG TABLET PO SCH (08:05)
[2020-07-05] MEDS: DICLOFENAC SODIUM 1% TOPICAL GEL 100GM TUBE. TP SCH (08:06)
[2020-07-05] MEDS: HEPARIN for SUB-Q USE 5,000 UNIT/ML VIAL. SQ SCH (08:21)
[2020-07-05] MEDS: ALBUTEROL SULFATE 2.5 MG/3 ML NEBU. NEB SCH ×2 (08:50→12:52)
[2020-07-05] MEDS: BUDESONIDE 0.5 MG/2 ML NEBU. NEB SCH (08:50)
[2020-07-05] MEDS ORDERED: MULTIVITAMIN I-VITE TABLET. PO SCH (09:00)
[2020-07-05] MEDS ORDERED: predniSONE 10 MG TABLET PO SCH (09:00)
[2020-07-05] MEDS ORDERED: ACYC200C PO (09:40)
[2020-07-05] MEDS ORDERED: PRED-220 PO (09:40)
--- NOTE | 2020-07-05 09:42 | PDOC ---
IM PROGRESS NOTES- Subjective Subjective Feeling better. Cough is improving. Objective Vitals/I&O Vital Signs Date Time Temp Pulse Resp B/P (MAP) Pulse Ox O2 Delivery O2 Flow Rate FiO2 07/05/20 08:50 97 Room Air 07/05/20 08:05 63 122/59 07/05/20 07:00 98.4 20 98.4 I & O 07/04/20 07/04/20 07/05/20 15:00 23:00 07:00 Intake Total 480 ml 500 ml 180 ml Output Total 350 ml 150 ml Balance 130 ml 500 ml 30 ml Physical Exam Physical Exam General appearance - alert,chronically ill appearing, in mild respiratory distress and forgetful Mental Status - alert, forgetful Head - normal Chest -increased air entry, no wheezing. Heart - S1 and S2 normal Abdomen - soft, non tender, Neurological - alert and forgetful. Mental status is improving. Musculoskeletal -generalized weakness Extremities - no pedal edema Skin - warm and dry Meds Current Medications Medications (Trade) Dose Ordered Sig/Juhi Route PRN Reason Start Time Stop Time Status Last Admin Dose Admin Multivitamins/ Minerals (I-Jordy) 1 tab DAILY PO 07/04/20 10:00 07/05/20 08:00 Acyclovir (Zovirax) 400 mg [id number] PO 07/04/20 15:00 07/05/20 08:04 Prednisone (Prednisone) 10 mg DAILY PO 07/05/20 09:00 07/05/20 08:00 Non-Formulary Medication (NON FORMULARY ITEM (Turmeric Curcumin 500 mg)) 1 ea DAILY PO 07/04/20 17:00 07/05/20 08:03 Assessment Assessment 1. Acute bronchitis. 2. Exacerbation of chronic obstructive pulmonary disease. 3. Non-ST elevation myocardial infarction, likely due to type 2 strain due to demand ischemia. 4. Recurrent falls. 5. Check for rhabdomyolysis. Check CPK. 6. Acute renal failure with chronic kidney disease 3. His baseline creatinine is around 1.6. 7. Coronary artery disease, history of 2 stents placed. 8. History of diabetes mellitus type 2. 9. Hypertension with chronic kidney disease 3, baseline creatinine 1.6. 10. Physical deconditioning. 11. Acute metabolic encephalopathy. 12. Carotid artery disease. 13. Osteoarthritis. 14. History of L3 compression fracture. 15. Anemia. 16. Anxiety. PLAN: waiting for placement. pt/ot. check labs. 1. Acute bronchitis. Start IV Rocephin and Zithromax. I will consult Dr. Ribeiro for pulmonary evaluation and management and Dr. Darrius Dye for Infectious Disease evaluation and management. Also, check blood cultures x 2. COVID-19 PCR test was negative. Blood cultures are negative. IV Rocephin has been discontinued. Observe him off the antibiotics. 2. Acute renal failure with chronic kidney disease 3. Start IV fluids, IV normal saline, but give it gently and cautiously due to history of fluid retention and coronary artery disease. BNP is 4029. BUN today is 37 and creatinine 2.0 BUN is increasing likely due to use of steroids. Creatinine is stable. 3. Recurrent falls. Order physical therapy and occupational therapy. Consult Dr. Bass for rehab evaluation and management. History of systolic congestive heart failure with ejection fraction of 35 to 40% previously. Echocardiogram pending Anemia-hemoglobin decreased to 8.9. 4. Check CPK and repeat labs in a.m. Discussed with staff. 5. Acute exacerbation of COPD. IV steroids discontinued. Changed to oral prednisone. Discharge to [facility] when accepted. COVID-19 PCR test is negative Decrease prednisone to 10 mg daily. Restart acyclovir 400 mg p.o. 3 times a day for a week for recurrence of herpes. Plan Plan For more details regarding further plans, please refer to the orders. Justifications for Admission Other Justification MARCELLUS FIERRO MD Jul 05, 2020 09:42
--- NOTE | 2020-07-05 09:48 | PDOC ---
PROGRESS NOTES Date of Service DATE: 07/05/20 TIME: 09:45 Subjective Subjective No new complaints. Objective Objective Vital Signs Date Time Temp Pulse Resp B/P (MAP) Pulse Ox O2 Delivery O2 Flow Rate FiO2 07/05/20 08:50 97 Room Air 07/05/20 08:05 63 122/59 07/05/20 07:00 98.4 20 98.4 Intake and Output 07/05/20 07:00 Intake Total 1160 ml Output Total 500 ml Balance 660 ml Intake Oral 1160 ml Output Urine Total 500 ml # Voids 5 # Bowel Movements 1 Physical Exam Physical Exam He is sitting on commode chair and he continues with lower extremity edema and redness of left leg distal part. He continues to do well with his mobility. Plan Plan of Care Problems Medical Problems: (1) Accidental fall Status: Acute (2) CKD (chronic kidney disease) Status: Acute (3) NSTEMI (non-ST elevated myocardial infarction) Status: Acute Comment Review of Relevant I have reviewed the following items tawnya (where applicable) has been applied. Labs Laboratory Tests Test 07/03/20 11:50 Coronavirus (PCR) Not detected (NOT DETECTD) Microbiology 06/27/20 Blood Culture - Final, Complete NO GROWTH AFTER 5 DAYS Medications Current Medications Medications (Trade) Dose Ordered Sig/Juhi Route PRN Reason Start Time Stop Time Status Last Admin Dose Admin Multivitamins/ Minerals (I-Jordy) 1 tab DAILY PO 07/04/20 10:00 07/05/20 08:00 Acyclovir (Zovirax) 400 mg [id number] PO 07/04/20 15:00 07/05/20 08:04 Prednisone (Prednisone) 10 mg DAILY PO 07/05/20 09:00 07/05/20 08:00 Non-Formulary Medication (NON FORMULARY ITEM (Turmeric Curcumin 500 mg)) 1 ea DAILY PO 07/04/20 17:00 07/05/20 08:03 Vitals/I & O Vital Signs Date Time Temp Pulse Resp B/P (MAP) Pulse Ox O2 Delivery O2 Flow Rate FiO2 07/05/20 08:50 97 Room Air 07/05/20 08:05 63 122/59 07/05/20 07:00 98.4 20 98.4 I & O 3/23/21 3/23/21 3/24/21 15:00 23:00 07:00 Intake Total 480 ml 500 ml 180 ml Output Total 350 ml 150 ml Balance 130 ml 500 ml 30 ml Images waiting for SNF transfer. Justifications for Admission Other Justification ARI PORTILLO MD Jul 05, 2020 09:48
[2020-07-05] MEDS ORDERED: FUROSEMIDE 40 MG TABLET. PO ONE (10:15)
[2020-07-05] MEDS ORDERED: FUROSEMIDE 40 MG/4 ML VIAL. IVP ONE (10:30)
[2020-07-05] MEDS: HYDROcodone/APAP 7.5/325MG 1 TAB TABLET PO PRN (10:36)
[2020-07-05 10:54] VITALS: BP 108/41
--- NOTE | 2020-07-05 12:29 | PDOC ---
BARRERA KLINE PORTAL ADMINISTRATOR 07/05/20 1229: CARDIO Progress Notes Date and Time Date of Service 07/05/2020 Time of Evaluation 1200 Subjective Subjective: No Chest Pain, No shortness of breath, No Palpitations Vitals Vitals Vital Signs Date Time Temp Pulse Resp B/P (MAP) Pulse Ox O2 Delivery O2 Flow Rate FiO2 07/05/20 10:54 97.8 63 22 108/41 (63) 99 Room Air 97.8 Weight Weight [ ] Input and Output Intake and Output Intake and Output 07/05/20 07:00 Intake Total 1160 ml Output Total 500 ml Balance 660 ml Intake Oral 1160 ml Output Urine Total 500 ml # Voids 5 # Bowel Movements 1 Microbiology Micro Microbiology 06/27/20 Blood Culture - Final, Complete NO GROWTH AFTER 5 DAYS Physical Exam HEENT: Neck Supple W Full Motion Chest: Symmetric LUNGS: Other (diminished bases) Heart: RRR (SR) Abdomen: Soft N/T Extremities: Other (2+ bilateral LE pitting edema; 2+ pedal pulses) Neurology: alert, follow commands Assessment Assessment 1. Nontraumatic mechanical fall/weakness: no syncopal spell 2. LLE pain: likely from lumbar radiculopathy with noted spinal stenosis/HNP vs DVT vs strain from fall, defer to PCP 3. CARMELINA on CKD; improved with IVFs 4. COPD: stable 5. Known ICM: Echo shows LVEF 35%. The distal half of the LV is severely hypokinetic consistent with prior LAD territory infarct. 6. Hx of GIB 7. 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 LE US negative for DVT 8. HTN: controlled 9. HLP; statin 10. COPD: stable 11. Chronic systolic/diastolic CHF: clinically compensated 12. Remote PAFIB: maintaining SR 13. Mild troponin elevation: peaked at 0.06, no acute changes to EKG by comparison, possibly demand mediated type 2 with fall and renal insufficiency. No cardiopulmonary symptoms. 14. CAD: STEMI in 2011 with BMS to LAD and RCA. clinically stable 15. PUI; COVID negative Recommendations Secondary prevention Continue ASA, statin and BB Poor candidate for anticoagulation therapy due to history, predisposition to GIB Could consider for outpt stress test. Dr. Bass requested pt to be seen to evaluate LE for possible PAD. Presently no claudications with ambulation and no resting leg pain. Has edema likely from CHF and venous insufficiency. Notable for hemosideration consistent with venous insufficiency. No open wounds. 2+ pedal pulses to bilateral LE. Lasix therapy Follow up with cardiology Justicifation of Admission Dx: Justifications for Admission: Justification of Admission Dx: Comment: Sepsis: Infection NOE CHAVEZ MD 07/06/20 0823: CARDIO Progress Notes Plan Plan The patient was seen and interviewed as well as examined at the bedside. The chart was reviewed. The case was discussed. Agree with the plan of care. Late entry for 07/05/20 BARRERA KLINE APRN Jul 05, 2020 12:29 NOE CHAVEZ MD Jul 06, 2020 08:23
== END 2020-07-05 14:05 | DRG 682 ==
LOC: ER 14:24 → 2 NORTH 19:30 → 6 SOUTH 06-28 12:30 → 2 NORTH 07-01 23:00
PROVIDERS: ADMIT Internal Medicine; ATTEND Internal Medicine
DX: N17.9 Acute kidney failure, unspecified (principal); G93.41 Metabolic encephalopathy; I21.A1 Myocardial infarction type 2; J44.0 Chronic obstructive pulmonary disease with (acute) lower respiratory infection; I13.0 Hypertensive heart and chronic kidney disease with heart failure and stage 1 through stage 4 chronic kidney disease, or unspecified chronic kidney disease; I50.42 Chronic combined systolic (congestive) and diastolic (congestive) heart failure; J44.1 Chronic obstructive pulmonary disease with (acute) exacerbation; N18.4 Chronic kidney disease, stage 4 (severe); J20.9 Acute bronchitis, unspecified; I25.10 Atherosclerotic heart disease of native coronary artery without angina pectoris; D64.9 Anemia, unspecified; F41.9 Anxiety disorder, unspecified; G89.29 Other chronic pain; W18.30XA Fall on same level, unspecified, initial encounter; M54.5 Low back pain; E11.42 Type 2 diabetes mellitus with diabetic polyneuropathy; E11.22 Type 2 diabetes mellitus with diabetic chronic kidney disease; Z95.5 Presence of coronary angioplasty implant and graft; M48.061 Spinal stenosis, lumbar region without neurogenic claudication; Z86.16 Personal history of COVID-19; E78.5 Hyperlipidemia, unspecified; I48.0 Paroxysmal atrial fibrillation; Z20.822 Contact with and (suspected) exposure to COVID-19; I25.2 Old myocardial infarction; E78.00 Pure hypercholesterolemia, unspecified; I25.5 Ischemic cardiomyopathy; I34.0 Nonrheumatic mitral (valve) insufficiency; I71.4 Abdominal aortic aneurysm, without rupture; I87.2 Venous insufficiency (chronic) (peripheral); K57.30 Diverticulosis of large intestine without perforation or abscess without bleeding; M15.9 Polyosteoarthritis, unspecified; N32.3 Diverticulum of bladder; N40.0 Benign prostatic hyperplasia without lower urinary tract symptoms; K21.9 Gastro-esophageal reflux disease without esophagitis; M47.26 Other spondylosis with radiculopathy, lumbar region; Z82.49 Family history of ischemic heart disease and other diseases of the circulatory system; Z86.711 Personal history of pulmonary embolism; Z86.718 Personal history of other venous thrombosis and embolism; Z87.891 Personal history of nicotine dependence; Z90.49 Acquired absence of other specified parts of digestive tract; Z95.828 Presence of other vascular implants and grafts; Z88.5 Allergy status to narcotic agent; Z88.8 Allergy status to other drugs, medicaments and biological substances; Y93.89 Activity, other specified; Y99.8 Other external cause status; Y92.009 Unspecified place in unspecified non-institutional (private) residence as the place of occurrence of the external cause
CPT/HCPCS: 36415; 70450; 71250; 72125; 74176; 80048; 80053; 80061; 80307; 81001; 82550; 83605; 83690; 83735; 83880; 84443; 84484; 85025; 85379; 85610; 85730; 86850; 86900; 86901; 87040; 93005; 93306; 93971; 94640; 94760; G0480; J0456; J0696; J1644; J2920; J7030; J7050; J7512; Q9956; U0003; 97110-GP; 97116-GP; 97530-GO; 97530-GP; 97535-GO; 99285-25; G0378; J7613; J7626

== ENCOUNTER 2020-08-03 19:47 | Inpatient (IN) | payer BC ==
[~2020-08-03] VITALS: Ht 165.1 cm; Wt 79.1 kg
[~2020-08-03 19:47] MED LIST changes: +ACYC-12 PO; +ACYC200C84 PO; -ACYC400T PO; +GUAI600T47 PO
[2020-08-03 20:35] LABS: BILIRUBIN,URINE NEGATIVE (NEG); CLARITY,URINE CLEAR; COLOR,URINE YELLOW; NITRITE,URINE NEGATIVE (NEG); PH,URINE 5.5 (<5.0-8.0); PROTEIN,URINE NEGATIVE (NEG-TRACE); UROBILINOGEN,URINE 0.2 mg/dL (0.2 mg/dL)
[2020-08-03 20:41] LABS: BACTERIA,URINE 0 /HPF (0-FEW); HYALINE CASTS, URINE OCCASIONAL /HPF; RBC,URINE 0 /HPF (0-2); WBC,URINE RARE /HPF (0-4)
[2020-08-03 20:54] LABS: BASO # 0.1 x10^3/uL (0.0-0.2); BASO % 1 % (0-3); EOS # 0.7 x10^3/uL (0.0-0.7); EOS % 11 % (0-3); HEMATOCRIT 27.4 % (39.0-53.0); HEMOGLOBIN 9.1 g/dL (13.0-17.5); LYMPH # 1.5 x10^3/uL (1.0-4.8); LYMPH % 23 % (24-48); MEAN CORPUSCULAR HEMOGLOBIN 30 pg (25-35); MEAN CORPUSCULAR HGB CONC 33 g/dL (31-37); MEAN CORPUSCULAR VOLUME 91 fL (79-100); MONO # 0.7 x10^3/uL (0.0-1.1); MONO % 12 % (0-9); NEUT # 3.4 x10^3/uL (1.8-7.7); NEUT % 53 % (31-73); PLATELET COUNT 162 x10^3/uL (140-400); RED CELL DISTRIBUTION WIDTH 14.7 % (11.5-14.5); WHITE BLOOD COUNT 6.3 x10^3/uL (4.0-11.0)
[2020-08-03 21:08] LABS: CALCIUM 9.4 mg/dL (8.5-10.1); CREATININE 2.5 mg/dL (0.7-1.3); GFR 24.6; POTASSIUM 3.9 mmol/L (3.5-5.1)
--- NOTE | 2020-08-03 21:11 | RAD ---
AP chest. HISTORY: Chest pain AP view was taken of the chest. There is artifact or scarring at the right apex. A skin fold is possi ble. There is atherosclerotic change in the aorta. Heart is normal in size. There is no pleural effus ion. IMPRESSION: 1. Artifact right apex follow-up could be of benefit. 2. No definite infiltrates. Electronically signed by: Pranav Esquivel MD (08/03/2020 9:08 PM) [facility]
[2020-08-03 21:26] LABS: ALBUMIN 3.8 g/dL (3.4-5.0); ALBUMIN/GLOBULIN RATIO 1.4 (1.0-1.7); MAGNESIUM 2.3 mg/dL (1.8-2.4); TOTAL BILIRUBIN 0.3 mg/dL (0.2-1.0); TOTAL PROTEIN 6.6 g/dL (6.4-8.2)
[2020-08-03] MEDS ORDERED: IV NORMAL SALINE 1000ML BAG 1,000 ML IV ONE (22:00)
--- NOTE | 2020-08-03 22:05 | ED.ADGEN ---
Past Medical History Past Medical History: Anemia, Bronchitis, CHF, COPD, DVT, High Cholesterol, Hypertension, NV, Pneumonia, Renal Disease, Other Additional Past Medical Histor: 69-75% BLOCKAGE TO RIGHT COROTID Past Surgical History: Angioplasty, Appendectomy, Other Additional Past Surgical Histo: cardiac stents, ABD SURGERY Smoking Status: Former Smoker Alcohol Use: None Drug Use: None General Adult EDM: Chief Complaint: TREMORS HPI: HPI: Patient is a 85 year old male, accompanied by his daughter, who presents emergency department with complaints of increased tremors over the last 2 days, generalized weakness, body aches, and fatigue. Patient states that he was recently admitted here after recent falls. He reports that he has had both of h is COVID-19 immunizations he denies any known exposure to COVID-19. Patient reports that he is afraid he is going to fall his tremors have become so bad. He denies any abdominal pain, nausea, vomiting, diarrhea, chest pain, palpitations, fever, cough, or shortness of breath. Patient currently rates his discomfort a 4 out of 10 on the pain scale states that it is worse in both of his feet but he aches everywhere. Review of Systems: Review of Systems: Complete ROS is negative unless otherwise noted in HPI. Allergies: Allergies: Allergies Coded Allergies Type Severity Reaction Last Updated Verified Sulfa (Sulfonamide Antibiotics) Allergy Severe 02/24/20 Yes clopidogrel Allergy Intermediate 02/24/20 Yes valsartan Allergy Intermediate 02/24/20 Yes warfarin Allergy Intermediate 02/24/20 Yes Physical Exam: PE: See Above Constitutional: Well developed, well nourished, no acute distress, non-toxic appearance. [] HENT: Normocephalic, atraumatic, bilateral external ears normal, nose normal. [] Eyes: PERRLA, EOMI, conjunctiva normal, no discharge. [] Neck: Normal range of motion, no stridor. [] Cardiovascular:Heart rate regular rhythm Lungs & Thorax: Respirations even and unlabored, no retractions, no respiratory distress Abdomen: soft, no tenderness Skin: Warm, dry, no erythema, no rash. [] Extremities: No cyanosis, ROM intact, no edema. [] Neurologic: Alert and oriented X 3, generalized tremors, normal sensory, no focal deficits noted. [] Psychologic: Affect grumpy, judgement normal, mood normal. [] Current Patient Data: Labs: Laboratory Tests Test 08/03/20 20:07 08/03/20 20:45 Urine Collection Type Unknown Urine Color Yellow Urine Clarity Clear Urine pH 5.5 (<5.0-8.0) Urine Specific Isabella 1.020 (1.000-1.030) Urine Protein Negative mg/dL (NEG-TRACE) Urine Glucose (UA) Negative mg/dL (NEG) Urine Ketones (Stick) Negative mg/dL (NEG) Urine Blood Negative (NEG) Urine Nitrite Negative (NEG) Urine Bilirubin Negative (NEG) Urine Urobilinogen Dipstick 0.2 mg/dL (0.2 mg/dL) Urine Leukocyte Esterase Negative (NEG) Urine RBC 0 /HPF (0-2) Urine WBC Rare /HPF (0-4) Urine Squamous Epithelial Cells Few /LPF Urine Bacteria 0 /HPF (0-FEW) Urine Hyaline Casts Occasional /HPF Urine Mucus Slight /LPF White Blood Count 6.3 x10^3/uL (4.0-11.0) Red Blood Count 3.00 x10^6/uL (4.30-5.70) L Hemoglobin 9.1 g/dL (13.0-17.5) L Hematocrit 27.4 % (39.0-53.0) L Mean Corpuscular Volume 91 fL (79-100) Mean Corpuscular Hemoglobin 30 pg (25-35) Mean Corpuscular Hemoglobin Concent 33 g/dL (31-37) Red Cell Distribution Width 14.7 % (11.5-14.5) H Platelet Count 162 x10^3/uL (140-400) Neutrophils (%) (Auto) 53 % (31-73) Lymphocytes (%) (Auto) 23 % (24-48) L Monocytes (%) (Auto) 12 % (0-9) H Eosinophils (%) (Auto) 11 % (0-3) H Basophils (%) (Auto) 1 % (0-3) Neutrophils # (Auto) 3.4 x10^3/uL (1.8-7.7) Lymphocytes # (Auto) 1.5 x10^3/uL (1.0-4.8) Monocytes # (Auto) 0.7 x10^3/uL (0.0-1.1) Eosinophils # (Auto) 0.7 x10^3/uL (0.0-0.7) Basophils # (Auto) 0.1 x10^3/uL (0.0-0.2) Sodium Level 144 mmol/L (136-145) Potassium Level 3.9 mmol/L (3.5-5.1) Chloride Level 106 mmol/L (98-107) Carbon Dioxide Level 30 mmol/L (21-32) Anion Gap 8 (6-14) Blood Urea Nitrogen 38 mg/dL (8-26) H Creatinine 2.5 mg/dL (0.7-1.3) H Estimated GFR (Cockcroft-Gault) 24.6 BUN/Creatinine Ratio 15 (6-20) Glucose Level 95 mg/dL (70-99) Calcium Level 9.4 mg/dL (8.5-10.1) Magnesium Level 2.3 mg/dL (1.8-2.4) Total Bilirubin 0.3 mg/dL (0.2-1.0) Aspartate Amino Transferase (AST) 19 U/L (15-37) Alanine Aminotransferase (ALT) 20 U/L (16-63) Alkaline Phosphatase 39 U/L (46-116) L Creatine Kinase 83 U/L (39-308) Creatine Kinase MB (Mass) 1.3 ng/mL (0.0-3.6) Creatine Kinase MB Relative Index 1.6 % (0-4) Troponin I Quantitative < 0.017 ng/mL (0.000-0.055) Total Protein 6.6 g/dL (6.4-8.2) Albumin 3.8 g/dL (3.4-5.0) Albumin/Globulin Ratio 1.4 (1.0-1.7) Laboratory Tests 08/03/20 20:45 Laboratory Tests 08/03/20 20:45 Vital Signs: Vital Signs Date Time Temp Pulse Resp B/P (MAP) Pulse Ox O2 Delivery O2 Flow Rate FiO2 08/03/20 20:10 99.0 68 16 144/66 (92) 97 Room Air 99.0 EKG: EK-sinus rhythm rate 68, no STEMI, read by Dr. Armstrong Heart Score: C/O Chest Pain: No Risk Scores: Score 0 - 3: 2.5% MACE over next 6 weeks - Discharge Home Score 4 - 6: 20.3% MACE over next 6 weeks - Admit for Clinical Observation Score 7 - 10: 72.7% MACE over next 6 weeks - Early Invasive Strategies Radiology/Procedures: Radiology/Procedures: PROCEDURE: CHEST AP ONLY AP chest. HISTORY: Chest pain AP view was taken of the chest. There is artifact or scarring at the right apex. A skin fold is possible. There is atherosclerotic change in the aorta. Heart is normal in size. There is no pleural effusion. IMPRESSION: 1. Artifact right apex follow-up could be of benefit. 2. No definite infiltrates. Electronically signed by: Pranav Esquivel MD (08/03/2020 9:08 PM) [facility] [] Course & Med Decision Making: Course & Med Decision Making Pertinent Labs and Imaging studies reviewed. (See chart for details) [id number] with Dr. Lopez who is the admitting physician, and care was assumed following discussion of patient. Will admit patient for tremors dehydration, will order blood cultures x2 as requested. Advised that 1 L of normal saline will be ordered then I will order NS at 100 an hour. Patient's vital signs stable. Patient remains afebrile, appears nontoxic, respirations even and unlabored. Patient will be admitted to the medical telemetry floor. Patient's case and plan of care also discussed with Dr. Patti Dawn Disclaimer: Nereyda Disclaimer: This electronic medical record was generated, in whole or in part, using a voice recognition dictation system. Departure Departure Impression: Primary Impression: Tremor, unspecified Additional Impression: Dehydration Disposition: ADMITTED INPATIENT Admitting Physician: Marcellus Lopez Condition: STABLE Referrals: MARCELLUS LOPEZ MD (PCP) Problem Qualifiers DOTTY SAPP APRN Aug 03, 2020 22:05
[2020-08-03 23:00] VITALS: BP 159/74
--- NOTE | 2020-08-04 00:05 | EKG ---
[facility] [address] [place] [address] Test Date: 2020-08-03 Test Time: 20:24:04 Pat Name: BASHIR ARROYO Department: Room: Gender: M On Site Manager: : [id number] Requested By: DOTTY SAPP Order Number: [id number] Reading MD: Measurements Intervals Hopkins Rate: 68 P: -55 WA: 148 QRS: 5 QRSD: 106 T: 89 QT: 416 QTc: 443 Interpretive Statements SINUS RHYTHM QRS(T) CONTOUR ABNORMALITY CONSISTENT WITH ANTERIOR INFARCT AGE UNDETERMINED T ABNORMALITY IN HIGH LATERAL LEADS ABNORMAL ECG RI6.02 No previous ECG available for comparison
[2020-08-04] MEDS: IV NORMAL SALINE 1000ML BAG 1,000 ML IV SCH ×3 (00:12→19:24)
[2020-08-04 03:00] VITALS: BP 145/64
[2020-08-04 07:00] VITALS: BP 103/54
[2020-08-04] MEDS ORDERED: ACETAMINOPHEN 325 MG TABLET. PO PRN (08:45)
[2020-08-04] MEDS: CARVEDILOL 3.125 MG TABLET. PO SCH ×2 (09:00→16:56)
[2020-08-04] MEDS: hydrALAZINE 25 MG TABLET PO SCH ×2 (09:00→20:16)
[2020-08-04] MEDS: ASPIRIN ENTERIC COATED 81 MG TABLET.DR. PO SCH (09:07)
[2020-08-04] MEDS: CALCIUM CARB/VIT D3 500/200 TABLET. PO SCH (09:07)
[2020-08-04] MEDS: MULTIVITAMIN with MINERAL TABLET. PO SCH (09:07)
[2020-08-04] MEDS: CYANOCOBALAMIN (VITAMIN B-12) 1,000 MCG TABLET. PO SCH (09:07)
[2020-08-04] MEDS: PANTOPRAZOLE 40 MG TABLET.DR. PO SCH (09:07)
[2020-08-04] MEDS: predniSONE 10 MG TABLET PO SCH (09:07)
[2020-08-04] MEDS: FLUTICASONE 50MCG/NASAL SPRAY 16GM BOTTLE. NS SCH (09:08)
[2020-08-04] MEDS: FLUTICASONE/VILANTEROL 200/25 INHALER. INH SCH (09:09)
[2020-08-04] MEDS: DICLOFENAC SODIUM 1% TOPICAL GEL 100GM TUBE. TP SCH ×2 (09:09→20:15)
[2020-08-04] MEDS: HEPARIN for SUB-Q USE 5,000 UNIT/ML VIAL. SQ SCH ×2 (09:20→20:30)
--- NOTE | 2020-08-04 09:51 | NUR ---
KRISHAN following for discharge planning. Spoke with RN and reviewed chart. Pt from home alone. SW familiar with this pt from previous admission. Pt was at [facility] last month, June 2019. Pt on room air, Heparin drip, cardiac diet. Pt COVID pending. PT/OT to evaluate. Met with pt who is agreeable to returning to [facility]. Pt has BCBS and might be in co-pay days. LVM for daughter Mona at request of patient ([phone]. KRISHAN awaiting on clinicals to send to [facility]. LVM for daughter. Patient choice of vendor form completed. KRISHAN following. Addendum: 08/04/20 at 1024 by ROCK NICKERSON Spoke with pt's daughter Mona and Mona's spouse by phone. Pt has had both COVID vaccines. Mona is looking for [facility] for pt. KRISHAN spoke with Eileen from [facility] and she is checking pt's benefits for SNU.
--- NOTE | 2020-08-04 10:15 | PDOC ---
Provider Note Date of Service: DATE: 08/04/20 TIME: 10:14 Provider Note H&P dictated #[id number] Justifications for Admission Other Justification MARCELLUS FIERRO MD Aug 04, 2020 10:15
[2020-08-04 11:00] VITALS: BP 119/56
--- NOTE | 2020-08-04 12:43 | PDOC2 ---
NEUROLOGY CONSULT Date of Service DOS: DATE: 08/04/20 TIME: 12:27 Reason for Consult Reason for Consult: Tremors Referring Physician Referring Physician: Dr. Lopez Source Source: Chart review, Patient History of Present Illness History of Present Illness The patient is an 85-year-old right-handed male who came to the emergency depa rtment yesterday with increased tremors, generalized weakness, body aches, and fatigue. I saw him in my office with my nurse practitioner, Ms. Walters, on 06/19/2020 and started the patient on primidone 50 mg one half at night for essential tremor. Dr. Llanos saw the patient here in January 2019 for weakness and tremors and made the same diagnosis. He has also been here in June for non-ST elevation myocardial infarction and in March after a fall. He thinks he grew worse after the fall. He has never had a stroke or a seizure. 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 Past Surgical History Past Surgical History: Other (Stents) Family History Family History: No pertinent hx (Negative for tremor) Social History Social History Formerly used alcohol and tobacco Current Medications Current Medications Current Medications Sodium Chloride 1,000 ml @ 1,000 mls/hr 1X ONCE IV Last administered on 08/03/20at 22:17; Start 08/03/20 at 22:00; Stop 08/03/20 at 22:59; Status DC Sodium Chloride 1,000 ml @ 100 mls/hr Q10H IV Last administered on 08/04/20at 00:12; Start 08/03/20 at 23:00; Stop 08/04/20 at 22:59 Acetaminophen (Tylenol) 650 mg PRN Q6HRS PRN PO MILD PAIN 1-3; Start 08/04/20 at 08:45 Aspirin (Ecotrin) 81 mg DAILY PO Last administered on 08/04/20at 09:07; Start 08/04/20 at 09:00 Carvedilol (Coreg) 3.125 mg BIDWMEALS PO ; Start 08/04/20 at 09:00 Cyanocobalamin (Vitamin B-12) 1,000 mcg DAILY PO Last administered on 08/04/20 09:07; Start 08/04/20 at 09:00 Diclofenac Sodium (Voltaren) 1 roz BID TP Last administered on 08/04/20at 09:09; Start 08/04/20 at 09:00 Fluticasone Propionate (Flonase) 2 spray DAILY NS Last administered on 08/04/20at 09:08; Start 08/04/20 at 09:00 Guaifenesin (Mucinex) 600 mg BID PO Last administered on 08/04/20at 09:07; Start 08/04/20 at 09:00 Hydralazine HCl (Apresoline) 25 mg BID PO ; Start 08/04/20 at 09:00 Acetaminophen/ Hydrocodone Bitart (Lortab 7.5/325) 1 tab PRN Q6HRS PRN PO MODERATE - SEVERE PAIN; Start 08/04/20 at 08:45 Mirtazapine (Remeron) 7.5 mg HS PO ; Start 08/04/20 at 21:00 Montelukast Sodium (Singulair) 10 mg HS PO ; Start 08/04/20 at 21:00 Prednisone (Prednisone) 10 mg DAILY PO Last administered on 08/04/20at 09:07; Start 08/04/20 at 09:00 Simvastatin (Zocor) 20 mg HS PO ; Start 08/04/20 at 21:00 Albuterol Sulfate (Ventolin Hfa) 1 puff [id number] INH ; Start 08/04/20 at 13:00 Fluticasone/ Vilanterol (Breo Ellipta 200-25 Mcg) 1 puff DAILY INH Last administered on 08/04/20at 09:09; Start 08/04/20 at 09:00 Calcium/Vitamin D (Oscal D 500mg/ 200uts) 1 tab DAILY PO Last administered on 08/04/20at 09:07; Start 08/04/20 at 09:00 Doxazosin Mesylate (Cardura) 8 mg HS PO ; Start 08/04/20 at 21:00 Multivitamins (Thera M Plus) 1 tab DAILY PO Last administered on 08/04/20at 09:07; Start 08/04/20 at 09:00 Pantoprazole Sodium (Protonix) 40 mg DAILYAC PO Last administered on 08/04/20at 09:07; Start 08/04/20 at 09:00 Heparin Sodium (Porcine) (Heparin Sodium) 5,000 unit Q12HR SQ Last administered on 08/04/20at 09:20; Start 08/04/20 at 09:00 Active Scripts Active Acyclovir 200 Mg Capsule 400 Mg PO [id number] Days Prednisone (Prednisone) 10 Mg Tablet 1 Tab PO DAILY 30 Days Acyclovir 400 Mg Tablet 1 Tab PO BID Hydrocodone-Apap 7.5-325 (Hydrocodone Bit/Acetaminophen) 1 Tab Tablet 1 Tab PO PRN Q6HRS PRN 7 Days Tylenol (Acetaminophen) 325 Mg Tablet 650 Mg PO PRN Q6HRS PRN 30 Days Voltaren (Diclofenac Sodium) 100 Gm Gel..gram. 1 Roz TP BID 30 Days Vitamin B-12 (Cyanocobalamin (Vitamin B-12)) 1,000 Mcg Tablet 1,000 Mcg PO DAILY Reported Mucinex (Guaifenesin) 600 Mg Tablet.er 600 Mg PO BID Fluticasone Propionate Nasal [place] (Fluticasone Propionate) 16 Gm [place].susp 2 [place] NS DAILY Aspir-Low (Aspirin) 81 Mg Tablet.dr 1 Tab PO DAILY Doxazosin Mesylate 8 Mg Tablet 1 Tab PO HS Omeprazole 40 Mg Capsule.dr 1 Cap PO DAILY Calcium 500-Vit D3 600 Tablet (Calcium Carbonate/Vitamin D3) 1 Each Tablet 1 Each PO DAILY Singulair Tablet (Montelukast Sodium) 10 Mg Tablet 10 Mg PO HS Centrum Silver Tablet (Multivits-Min/Fa/Lycopene/Lut) 1 Each Tablet 1 Each PO DAILY Carvedilol (Carvedilol) 3.125 Mg Tablet 1 Tab PO BID Hydralazine Hcl 25 Mg Tablet 1 Tab PO BID Mirtazapine 7.5 Mg Tablet 7.5 Mg PO HS Simvastatin 20 Mg Tablet 20 Mg PO HS Symbicort 160-4.5 Mcg Inhaler (Budesonide/Formoterol Fumarate) 10.2 Gm Hfa.aer.ad 2 Inhaler IH BID Albuterol Sulfate Conc Neb Soln (Albuterol Sulfate) 2.5 Mg/0.5 Ml Vial.neb 2.5 Mg IH [id number] Allergies Allergies: Coded Allergies: Sulfa (Sulfonamide Antibiotics) (Verified Allergy, Severe, 02/24/20) doesn't remember but it almost killed him clopidogrel (Verified Allergy, Intermediate, 02/24/20) valsartan (Verified Allergy, Intermediate, 02/24/20) warfarin (Verified Allergy, Intermediate, 02/24/20) ROS Review of System Negative for fever, chills, weight loss, chest pain, indigestion, hematochezia, melena, and dysuria. Positive for dyspnea. Full 14-point review of systems is negative. Physical Exam Physical Examination General: Well-developed, well-nourished white male in no acute distress HEENT: Normocephalic andatraumatic. Temporal arteriespulsatile and nontender. Neck: Supple without bruit, no meningismus Musculoskeletal: Stability:see neurologic. Gait exam:see neurologic. Tone:see n eurologic.Strength:see neurologic. Neurological: Mental Status:intact, orientation, memory, attention span/concentration, la nguage, fund of knowledge normal. Cranial Nerves:Blind in the right eye, pupil not reactive, left eye has macular degeneration, poor visual acuity. Facial sensation is normal. There is no facial asymmetry. Vestibulo-ocular reflex is intact. Palate elevates and tongue protrudes in midline. All other cranial related problems are negative except as mentioned before.Reflexes:0-1+ and symmetric with flexor plantar responses. Motor:4/5 strength with normal tone and bulk. Coordination:Finger-nose finger and zpox-ap-jhxs testing are normal. Rapid alternating movements and fine finger movements are intact. Mild postural tremor. Gait:Not tested. Sensory:Stocking loss Vitals VITALS Vital Signs Date Time Temp Pulse Resp B/P (MAP) Pulse Ox O2 Delivery O2 Flow Rate FiO2 08/04/20 11:00 98.5 63 20 119/56 (77) 96 Room Air 98.5 Labs Labs Laboratory Tests Test 08/03/20 20:07 08/03/20 20:45 Urine Collection Type Unknown Urine Color Yellow Urine Clarity Clear Urine pH 5.5 (<5.0-8.0) Urine Specific [place] 1.020 (1.000-1.030) Urine Protein Negative mg/dL (NEG-TRACE) Urine Glucose (UA) Negative mg/dL (NEG) Urine Ketones (Stick) Negative mg/dL (NEG) Urine Blood Negative (NEG) Urine Nitrite Negative (NEG) Urine Bilirubin Negative (NEG) Urine Urobilinogen Dipstick 0.2 mg/dL (0.2 mg/dL) Urine Leukocyte Esterase Negative (NEG) Urine RBC 0 /HPF (0-2) Urine WBC Rare /HPF (0-4) Urine Squamous Epithelial Cells Few /LPF Urine Bacteria 0 /HPF (0-FEW) Urine Hyaline Casts Occasional /HPF Urine Mucus Slight /LPF White Blood Count 6.3 x10^3/uL (4.0-11.0) Red Blood Count 3.00 x10^6/uL (4.30-5.70) Hemoglobin 9.1 g/dL (13.0-17.5) Hematocrit 27.4 % (39.0-53.0) Mean Corpuscular Volume 91 fL (79-100) Mean Corpuscular Hemoglobin 30 pg (25-35) Mean Corpuscular Hemoglobin Concent 33 g/dL (31-37) Red Cell Distribution Width 14.7 % (11.5-14.5) Platelet Count 162 x10^3/uL (140-400) Neutrophils (%) (Auto) 53 % (31-73) Lymphocytes (%) (Auto) 23 % (24-48) Monocytes (%) (Auto) 12 % (0-9) Eosinophils (%) (Auto) 11 % (0-3) Basophils (%) (Auto) 1 % (0-3) Neutrophils # (Auto) 3.4 x10^3/uL (1.8-7.7) Lymphocytes # (Auto) 1.5 x10^3/uL (1.0-4.8) Monocytes # (Auto) 0.7 x10^3/uL (0.0-1.1) Eosinophils # (Auto) 0.7 x10^3/uL (0.0-0.7) Basophils # (Auto) 0.1 x10^3/uL (0.0-0.2) Sodium Level 144 mmol/L (136-145) Potassium Level 3.9 mmol/L (3.5-5.1) Chloride Level 106 mmol/L (98-107) Carbon Dioxide Level 30 mmol/L (21-32) Anion Gap 8 (6-14) Blood Urea Nitrogen 38 mg/dL (8-26) Creatinine 2.5 mg/dL (0.7-1.3) Estimated GFR (Cockcroft-Gault) 24.6 BUN/Creatinine Ratio 15 (6-20) Glucose Level 95 mg/dL (70-99) Calcium Level 9.4 mg/dL (8.5-10.1) Magnesium Level 2.3 mg/dL (1.8-2.4) Total Bilirubin 0.3 mg/dL (0.2-1.0) Aspartate Amino Transf (AST/SGOT) 19 U/L (15-37) Alanine Aminotransferase (ALT/SGPT) 20 U/L (16-63) Alkaline Phosphatase 39 U/L (46-116) Creatine Kinase 83 U/L (39-308) Creatine Kinase MB (Mass) 1.3 ng/mL (0.0-3.6) Creatine Kinase MB Relative Index 1.6 % (0-4) Troponin I Quantitative < 0.017 ng/mL (0.000-0.055) Total Protein 6.6 g/dL (6.4-8.2) Albumin 3.8 g/dL (3.4-5.0) Albumin/Globulin Ratio 1.4 (1.0-1.7) Laboratory Tests Test 08/03/20 20:07 08/03/20 20:45 Urine Collection Type Unknown Urine Color Yellow Urine Clarity Clear Urine pH 5.5 (<5.0-8.0) Urine Specific [place] 1.020 (1.000-1.030) Urine Protein Negative mg/dL (NEG-TRACE) Urine Glucose (UA) Negative mg/dL (NEG) Urine Ketones (Stick) Negative mg/dL (NEG) Urine Blood Negative (NEG) Urine Nitrite Negative (NEG) Urine Bilirubin Negative (NEG) Urine Urobilinogen Dipstick 0.2 mg/dL (0.2 mg/dL) Urine Leukocyte Esterase Negative (NEG) Urine RBC 0 /HPF (0-2) Urine WBC Rare /HPF (0-4) Urine Squamous Epithelial Cells Few /LPF Urine Bacteria 0 /HPF (0-FEW) Urine Hyaline Casts Occasional /HPF Urine Mucus Slight /LPF White Blood Count 6.3 x10^3/uL (4.0-11.0) Red Blood Count 3.00 x10^6/uL (4.30-5.70) Hemoglobin 9.1 g/dL (13.0-17.5) Hematocrit 27.4 % (39.0-53.0) Mean Corpuscular Volume 91 fL (79-100) Mean Corpuscular Hemoglobin 30 pg (25-35) Mean Corpuscular Hemoglobin Concent 33 g/dL (31-37) Red Cell Distribution Width 14.7 % (11.5-14.5) Platelet Count 162 x10^3/uL (140-400) Neutrophils (%) (Auto) 53 % (31-73) Lymphocytes (%) (Auto) 23 % (24-48) Monocytes (%) (Auto) 12 % (0-9) Eosinophils (%) (Auto) 11 % (0-3) Basophils (%) (Auto) 1 % (0-3) Neutrophils # (Auto) 3.4 x10^3/uL (1.8-7.7) Lymphocytes # (Auto) 1.5 x10^3/uL (1.0-4.8) Monocytes # (Auto) 0.7 x10^3/uL (0.0-1.1) Eosinophils # (Auto) 0.7 x10^3/uL (0.0-0.7) Basophils # (Auto) 0.1 x10^3/uL (0.0-0.2) Sodium Level 144 mmol/L (136-145) Potassium Level 3.9 mmol/L (3.5-5.1) Chloride Level 106 mmol/L (98-107) Carbon Dioxide Level 30 mmol/L (21-32) Anion Gap 8 (6-14) Blood Urea Nitrogen 38 mg/dL (8-26) Creatinine 2.5 mg/dL (0.7-1.3) Estimated GFR (Cockcroft-Gault) 24.6 BUN/Creatinine Ratio 15 (6-20) Glucose Level 95 mg/dL (70-99) Calcium Level 9.4 mg/dL (8.5-10.1) Magnesium Level 2.3 mg/dL (1.8-2.4) Total Bilirubin 0.3 mg/dL (0.2-1.0) Aspartate Amino Transf (AST/SGOT) 19 U/L (15-37) Alanine Aminotransferase (ALT/SGPT) 20 U/L (16-63) Alkaline Phosphatase 39 U/L (46-116) Creatine Kinase 83 U/L (39-308) Creatine Kinase MB (Mass) 1.3 ng/mL (0.0-3.6) Creatine Kinase MB Relative Index 1.6 % (0-4) Troponin I Quantitative < 0.017 ng/mL (0.000-0.055) Total Protein 6.6 g/dL (6.4-8.2) Albumin 3.8 g/dL (3.4-5.0) Albumin/Globulin Ratio 1.4 (1.0-1.7) Assessment/Plan Assessment/Plan Impression: Mild essential tremor General debility in a patient with COPD, arthritis, blind in the right eye, macular degeneration in the left eye. No evidence of stroke, myelopathy, or radiculopathy. With the hyperreflexia there may be a component of neuropathy. Recommendations: The primidone we started the patient on last month is not on his home list, I will resume it at a slightly higher dose, 50 mg one half twice a day Physical and Occupational Therapy Treat medical issues. Thank you for letting me help with the patient's care. RAFI JUDD MD Aug 04, 2020 12:43
[2020-08-04] MEDS: ALBUTEROL SULFATE 8GM INHALER. INH SCH ×3 (13:00→20:17)
[2020-08-04 15:00] VITALS: BP 109/54
[2020-08-04] MEDS ORDERED: CALCIUM CARBONATE 500 MG TAB.CHEW PO PRN (15:15)
[2020-08-04] MEDS: PRIMIDONE 50 MG TABLET PO SCH (16:56)
[2020-08-04 19:00] VITALS: BP 121/57
--- NOTE | 2020-08-04 19:18 | HP ---
ADMIT DATE: 08/03/2020 HISTORY OF PRESENT ILLNESS: This 85-year-old male who has been admitted to this institution several times in the past, presented to the emergency room with complaints of weakness and increased tremors. The patient states that he has been very weak, has body aches. He has some cough and congestion, but mucus is clear. He denies any dysuria. He was recently discharged from this hospital after being treated for recurrent falls. He had been sent to the alf unit. The patient was noted to have low-grade fever. His creatinine was noted to be 2.5. His baseline creatinine is 1.6. He had increased BUN of 38. Sodium was 144, potassium 3.9. Troponin was less than 0.017. Cardiac enzymes were normal. Urinalysis was unremarkable. WBC count was 6.3, hemoglobin 9.1. In the emergency room, the patient was noted to be very weak and had increased tremors and was unsteady. Because of the acute renal failure with dehydration, the patient was admitted for further evaluation and management. SYSTEMS REVIEW: As noted in the history of present illness. The patient is somewhat forgetful and is not a good historian. He is complaining of body ache. He denies any fever or chills. He is not a good historian. He is anxious and weak, unable to do full systems review because of the patient's medical condition. PAST MEDICAL HISTORY: The patient was discharged from the hospital on 06/30/2020 after being treated for acute bronchitis, exacerbation of COPD, non-ST elevation myocardial infarction, likely due to type 2 strain due to demand ischemia, recurrent falls. He had acute renal failure with chronic kidney disease stage 3 at that time with history of 2 stents placed, history of diabetes mellitus type 2, hypertension with CKD 3, physical deconditioning, carotid artery disease, osteoarthritis, L3 compression fracture, acute metabolic encephalopathy, anemia and anxiety. PAST SURGICAL HISTORY: Includes a coronary artery catheterization as well as angioplasty with 2 stents placed, appendectomy, carotid artery stenosis with 69-75% blockage of the right carotid artery, also had abdominal surgery. SOCIAL HISTORY: Former smoker, history of COPD. No history of alcoholism or drug abuse. FAMILY HISTORY: Reviewed and noncontributory. ALLERGIES: THE PATIENT IS ALLERGIC TO SULFA, CLOPIDOGREL, VALSARTAN, AND WARFARIN. MEDICATIONS: Reviewed and reconciled. The patient has been recently taking prednisone 5 mg daily. PHYSICAL EXAMINATION: VITAL SIGNS: Temperature 99, pulse 68 per minute, respirations 16 per minute, blood pressure 144/66 mmHg. GENERAL: The patient is an elderly male who is alert, forgetful, anxious, weak and in mild distress. EYES: Pupils reacting to light. Conjunctivae pale. Sclerae muddy. HENT: Unremarkable. NECK: Supple. JVP normal. No thyromegaly. Trachea midline. LUNGS: Decreased breath sounds at bases. CARDIOVASCULAR SYSTEMS: S1, S2 regular. ABDOMEN: Soft, nontender, no guarding, no rigidity. Bowel sounds present. EXTREMITIES: No edema. CENTRAL NERVOUS SYSTEM: Has increased tremors, generalized weakness, forgetful. Moves all extremities. LABORATORY FINDINGS: As noted earlier. IMPRESSION: 1. Acute renal failure with chronic kidney disease 3 with baseline creatinine of 1.6. This is due to poor oral intake. The patient has stated that she has not been eating much. 2. Fever. Monitor. Chest x-ray did not show any acute changes. Urinalysis is negative. 3. Chronic obstructive pulmonary disease. 4. Coronary artery disease status post placement of two stents. 5. History of diabetes mellitus. 6. Hypertension with chronic kidney disease 3. 7. Physical deconditioning. 8. Tremors. The patient denies using breathing treatments. 9. Carotid artery disease. 10. Osteoarthritis. 11. History of L3 compression fracture. 12. Anemia. 13. Anxiety. PLAN: Admit to [facility]. Continue IV fluids. Order PT, OT. Consult Dr. De Jesus for neurology evaluation and management. For details, please review the orders. Prognosis of this patient is extremely poor because of his multiple medical problems. Monitor renal function. Monitor fever and infection. For details, please refer to the orders. PBP/VIS DR: TEMITOPE/lory TID: [id number]
[2020-08-04] MEDS: SIMVASTATIN 20 MG TABLET PO SCH (20:16)
[2020-08-04] MEDS: DOXAZOSIN MESYLATE 4 MG TABLET. PO SCH (20:16)
[2020-08-04] MEDS: MONTELUKAST SODIUM 10 MG TABLET. PO SCH (20:16)
[2020-08-04] MEDS: MIRTAZAPINE 7.5 MG TABLET. PO SCH (20:16)
[2020-08-04] MEDS: HYDROcodone/APAP 7.5/325MG 1 TAB TABLET PO PRN (22:20)
[2020-08-04] MEDS ORDERED: PRIM50TA24 PO (22:55)
[2020-08-04] MEDS ORDERED: DOXA4TAB3 PO (22:55)
[2020-08-04 23:00] VITALS: BP 130/60
[2020-08-05 05:35] LABS: BASO % 1 % (0-3); EOS # 0.4 x10^3/uL (0.0-0.7); EOS % 9 % (0-3); HEMATOCRIT 23.2 % (39.0-53.0); HEMOGLOBIN 7.8 g/dL (13.0-17.5); LYMPH # 1.3 x10^3/uL (1.0-4.8); LYMPH % 27 % (24-48); MEAN CORPUSCULAR HEMOGLOBIN 31 pg (25-35); MEAN CORPUSCULAR HGB CONC 34 g/dL (31-37); MEAN CORPUSCULAR VOLUME 91 fL (79-100); MONO # 0.5 x10^3/uL (0.0-1.1); MONO % 10 % (0-9); NEUT # 2.7 x10^3/uL (1.8-7.7); NEUT % 54 % (31-73); PLATELET COUNT 138 x10^3/uL (140-400); RED BLOOD COUNT 2.54 x10^6/uL (4.30-5.70); RED CELL DISTRIBUTION WIDTH 14.5 % (11.5-14.5); WHITE BLOOD COUNT 4.9 x10^3/uL (4.0-11.0)
[2020-08-05 06:07] LABS: ALBUMIN 2.9 g/dL (3.4-5.0); ALBUMIN/GLOBULIN RATIO 1.1 (1.0-1.7); CALCIUM 8.1 mg/dL (8.5-10.1); CREATININE 2.3 mg/dL (0.7-1.3); POTASSIUM 3.5 mmol/L (3.5-5.1); TOTAL BILIRUBIN 0.3 mg/dL (0.2-1.0); TOTAL PROTEIN 5.5 g/dL (6.4-8.2)
[2020-08-05 07:00] VITALS: BP 115/56
[2020-08-05] MEDS ORDERED: VANCOMYCIN PER PHARMACY MC PRN (08:30)
[2020-08-05] MEDS: FLUTICASONE 50MCG/NASAL SPRAY 16GM BOTTLE. NS SCH (08:51)
[2020-08-05] MEDS: CALCIUM CARB/VIT D3 500/200 TABLET. PO SCH (08:51)
[2020-08-05] MEDS: ASPIRIN ENTERIC COATED 81 MG TABLET.DR. PO SCH (08:51)
[2020-08-05] MEDS: PRIMIDONE 50 MG TABLET PO SCH ×2 (08:51→16:49)
[2020-08-05] MEDS: MULTIVITAMIN with MINERAL TABLET. PO SCH (08:51)
[2020-08-05] MEDS: FLUTICASONE/VILANTEROL 200/25 INHALER. INH SCH (08:51)
[2020-08-05] MEDS: CYANOCOBALAMIN (VITAMIN B-12) 1,000 MCG TABLET. PO SCH (08:51)
[2020-08-05] MEDS: CARVEDILOL 3.125 MG TABLET. PO SCH ×2 (08:52→16:49)
[2020-08-05] MEDS: PANTOPRAZOLE 40 MG TABLET.DR. PO SCH (08:52)
[2020-08-05] MEDS: hydrALAZINE 25 MG TABLET PO SCH ×2 (08:53→19:48)
[2020-08-05] MEDS: DICLOFENAC SODIUM 1% TOPICAL GEL 100GM TUBE. TP SCH ×2 (08:53→19:47)
[2020-08-05] MEDS: predniSONE 10 MG TABLET PO SCH (08:53)
[2020-08-05] MEDS: ALBUTEROL SULFATE 8GM INHALER. INH SCH ×3 (08:55→16:50)
[2020-08-05] MEDS: HEPARIN for SUB-Q USE 5,000 UNIT/ML VIAL. SQ SCH ×2 (09:08→19:50)
[2020-08-05] MEDS ORDERED: VANCOMYCIN 1.75 GM in IV NORMAL SALINE 500ML BAG 500 ML IV ONE (10:00)
[2020-08-05 11:00] VITALS: BP 109/51
--- NOTE | 2020-08-05 11:23 | NUR ---
Pharmacy Vancomycin Dosing Note S:Consulted to monitor and dose vancomycin started 08/05/20. O:BASHIR ARROYO is a 85 year old M with Empiric . Height: 5 feet, 5 inches Weight: 76.2 kg [place] Body Weight: 61.50 Adjusted Body Weight: 67.38 Dosing Weight: Actual Other Antibiotics: LABS: Last BUN: 36 Last Creatinine: 2.3 Creatinine Clearance: 22 mL/min Last WBC: 4.9 Last Procalcitonin: Tmax (past 24 hours): 98.5 Microbiology: NGTD I/O: 0/250 Drug Levels: Last level: on at Last dose given 08/05/20 at 0937 Vancomycin Dosing: Loading Dose: 1750 mg x1 Dosing Weight: Actual Target Trough: 15-20 A: Based on weight and CrCl: P: 1. Vancomycin 1750mg, followed by Vancomycin 1000 mg IV q24h. 2. Follow up Trough level on 08/07/20 at 0830. 3. Pharmacy will continue to monitor, follow and adjust therapy as needed. Davi Salazar [facility], 08/05/20 [id number]
--- NOTE | 2020-08-05 11:26 | PDOC ---
PROGRESS NOTES Date of Service: DATE: 08/05/20 TIME: 11:23 Subjective Subjective feels ok Objective Objective Vital Signs Date Time Temp Pulse Resp B/P (MAP) Pulse Ox O2 Delivery O2 Flow Rate FiO2 08/05/20 08:53 65 115/56 08/05/20 08:00 Room Air 08/05/20 07:00 98.3 18 95 98.3 Intake and Output 08/05/20 07:00 Intake Total 0 ml Output Total 250 ml Balance -250 ml Intake Oral 0 ml Output Urine Total 250 ml # Voids 4 Physical Exam Abdomen: Soft Heart: Regular rate, Normal S1, Normal S2 Extremities: No clubbing General: Alert, Oriented X3 HEENT: Atraumatic MUSCULOSKELETAL: No deformity, Osteoarthritic changes both hands Neck: Supple Neuro: Normal speech Psych/Mental Status: Mental status NL Skin: No breakdown Diagnosis Problem List Problems Medical Problems: (1) Dehydration Status: Acute (2) Tremor, unspecified Status: Acute Assessment Assessment Problems Medical Problems: (1) Dehydration Status: Acute (2) Tremor, unspecified Status: Acute IMPRESSION:Positive blood c/s 1/4 gram positive cocci 1. Acute renal failure with chronic kidney disease 3 with baseline creatinine of 1.6. This is due to poor oral intake. The patient has stated that she has not been eating much. 2. Fever. Monitor. Chest x-ray did not show any acute changes. Urinalysis is negative. 3. Chronic obstructive pulmonary disease. 4. Coronary artery disease status post placement of two stents. 5. History of diabetes mellitus. 6. Hypertension with chronic kidney disease 3. 7. Physical deconditioning. 8. Tremors. The patient denies using breathing treatments. 9. Carotid artery disease. 10. Osteoarthritis. 11. History of L3 compression fracture. 12. Anemia. 13. Anxiety. PLAN: dose iv vancomycin and pharmacy to dose for bacteremia ID consult iv fluids for hydration monitor kidney function, cr 2.3 Admit to [facility]. Continue IV fluids. Order PT, OT. Consult Dr. De Jesus for neurology evaluation and management. For details, please review the orders. Prognosis of this patient is extremely poor because of his multiple medical problems. Monitor renal function. Monitor fever and infection. For details, please refer to the orders. Plan Plan of Care Problems Medical Problems: (1) Dehydration Status: Acute (2) Tremor, unspecified Status: Acute Comment Review of Relevant I have reviewed the following items tawnya (where applicable) has been applied. Labs Laboratory Tests Test 08/04/20 13:45 08/05/20 05:00 SARS-CoV-2 RNA (NICKY) Negative (Negative) SARS-CoV-2 Antigen (Rapid) Negative (NEGATIVE) White Blood Count 4.9 x10^3/uL (4.0-11.0) Red Blood Count 2.54 x10^6/uL (4.30-5.70) Hemoglobin 7.8 g/dL (13.0-17.5) Hematocrit 23.2 % (39.0-53.0) Mean Corpuscular Volume 91 fL (79-100) Mean Corpuscular Hemoglobin 31 pg (25-35) Mean Corpuscular Hemoglobin Concent 34 g/dL (31-37) Red Cell Distribution Width 14.5 % (11.5-14.5) Platelet Count 138 x10^3/uL (140-400) Neutrophils (%) (Auto) 54 % (31-73) Lymphocytes (%) (Auto) 27 % (24-48) Monocytes (%) (Auto) 10 % (0-9) Eosinophils (%) (Auto) 9 % (0-3) Basophils (%) (Auto) 1 % (0-3) Neutrophils # (Auto) 2.7 x10^3/uL (1.8-7.7) Lymphocytes # (Auto) 1.3 x10^3/uL (1.0-4.8) Monocytes # (Auto) 0.5 x10^3/uL (0.0-1.1) Eosinophils # (Auto) 0.4 x10^3/uL (0.0-0.7) Basophils # (Auto) 0.0 x10^3/uL (0.0-0.2) Sodium Level 145 mmol/L (136-145) Potassium Level 3.5 mmol/L (3.5-5.1) Chloride Level 109 mmol/L (98-107) Carbon Dioxide Level 28 mmol/L (21-32) Anion Gap 8 (6-14) Blood Urea Nitrogen 36 mg/dL (8-26) Creatinine 2.3 mg/dL (0.7-1.3) Estimated GFR (Cockcroft-Gault) 27.0 BUN/Creatinine Ratio 16 (6-20) Glucose Level 90 mg/dL (70-99) Calcium Level 8.1 mg/dL (8.5-10.1) Total Bilirubin 0.3 mg/dL (0.2-1.0) Aspartate Amino Transf (AST/SGOT) 13 U/L (15-37) Alanine Aminotransferase (ALT/SGPT) 18 U/L (16-63) Alkaline Phosphatase 32 U/L (46-116) Total Protein 5.5 g/dL (6.4-8.2) Albumin 2.9 g/dL (3.4-5.0) Albumin/Globulin Ratio 1.1 (1.0-1.7) Microbiology 08/04/20 Blood Culture - Final, Complete Medications Current Medications Albuterol Sulfate (Ventolin Hfa) 1 puff [id number] INH Last administered on 08/05/20at 08:55; Start 08/04/20 at 13:00 Calcium Carbonate/ Glycine (Tums) 500 mg PRN AFTMEALHC PRN PO INDIGESTION; Start 08/04/20 at 15:15 Doxazosin Mesylate (Cardura) 8 mg HS PO Last administered on 08/04/20at 20:16; Start 08/04/20 at 21:00 Mirtazapine (Remeron) 7.5 mg HS PO Last administered on 08/04/20at 20:16; Start 08/04/20 at 21:00 Montelukast Sodium (Singulair) 10 mg HS PO Last administered on 08/04/20at 20: 16; Start 08/04/20 at 21:00 Primidone (Mysoline) 25 mg [id number] PO Last administered on 08/05/20at 08:51; Start 08/04/20 at 16:00 Simvastatin (Zocor) 20 mg HS PO Last administered on 08/04/20at 20:16; Start 08/04/20 at 21:00 Vancomycin HCl (Vanco Per Pharmacy) 1 each PRN DAILY PRN MC SEE COMMENTS Last administered on 08/05/20at 11:21; Start 08/05/20 at 08:30 Vancomycin HCl (Vancomycin Trough Level) 1 each 1X ONCE MC ; Start 08/07/20 at 08:30; Stop 08/07/20 at 08:31 Vancomycin HCl 1.75 gm/Sodium Chloride 500 ml @ 250 mls/hr 1X ONCE IV Last administered on 08/05/20at 09:37; Start 08/05/20 at 10:00; Stop 08/05/20 at 11:59 Vancomycin HCl 1 gm/Sodium Chloride 250 ml @ 250 mls/hr Q24H IV ; Start 08/06/20 at 09:00 Vitals/I & O Vital Sign - Last 24 Hours 08/04/20 08/04/20 08/04/20 08/04/20 15:00 16:56 19:00 20:00 Temp 98.2 98.8 98.2 98.8 Pulse 63 63 66 Resp 20 17 B/P (MAP) 109/54 (72) 109/54 121/57 (78) Pulse Ox 98 99 O2 Delivery Room Air Room Air Room Air 08/04/20 08/04/20 08/04/20 08/05/20 20:16 20:16 23:00 03:00 Temp 98.7 98.7 Pulse 66 66 59 52 Resp 18 17 B/P (MAP) 121/57 121/57 130/60 (83) Pulse Ox 99 O2 Delivery Room Air 08/05/20 08/05/20 08/05/20 08/05/20 07:00 08:00 08:52 08:53 Temp 98.3 98.3 Pulse 54 65 65 Resp 18 B/P (MAP) 115/56 (75) 115/56 115/56 Pulse Ox 95 O2 Delivery Room Air Room Air Intake and Output 08/04/20 08/04/20 08/05/20 15:00 23:00 07:00 Intake Total 0 ml Output Total 50 ml 200 ml Balance -50 ml -200 ml Justifications for Admission Other Justification BELEN IVORY MD Aug 05, 2020 11:26
[2020-08-05] MEDS: IV NORMAL SALINE 1000ML BAG 1,000 ML IV SCH ×2 (11:44→21:30)
--- NOTE | 2020-08-05 12:55 | PDOC ---
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 No evidence of stroke, myelopathy, or radiculopathy. With the hyporeflexia there may be a component of neuropathy. Acute renal failure with chronic kidney disease, fever, chronic obstructive pulmonary disease, coronary artery disease, diabetes, hypertension, carotid disease, right eye blindness, left eye macular degeneration, osteoarthritis, L3 compression fracture history, anemia, anxiety Plan Primidone 50 mg one half twice a day, tomorrow I will increase to 1 full tablet twice daily Physical and Occupational Therapy Treat medical issues. Needs SNU Subjective Feels better Objective Vital Signs Date Time Temp Pulse Resp B/P (MAP) Pulse Ox O2 Delivery O2 Flow Rate FiO2 08/05/20 11:00 98.1 56 18 109/51 (70) 97 Room Air 98.1 Intake and Output 08/05/20 07:00 Intake Total 0 ml Output Total 250 ml Balance -250 ml Intake Oral 0 ml Output Urine Total 250 ml # Voids 4 PHYSICAL EXAM Physical Exam: Alert. Oriented to time, place and person. Blind in the right eye, pupil not reactive, decreased visual acuity in the left eye EOMI. CN: no focal findings. Muscle tone: normal. Muscle strength: 4/5 DTR: 0-1+ Plantar reflex: Flexor Gait: not examined in bed. Sensory exam: Stocking loss. No cerebellar signs elicited. Postural tremor is better Review of Relevant I have reviewed the following items tawnya (where applicable) has been applied. Labs Laboratory Tests Test 08/03/20 20:07 08/03/20 20:45 08/04/20 13:45 08/05/20 05:00 Urine Collection Type Unknown Urine Color Yellow Urine Clarity Clear Urine pH 5.5 (<5.0-8.0) Urine Specific [place] 1.020 (1.000-1.030) Urine Protein Negative mg/dL (NEG-TRACE) Urine Glucose (UA) Negative mg/dL (NEG) Urine Ketones (Stick) Negative mg/dL (NEG) Urine Blood Negative (NEG) Urine Nitrite Negative (NEG) Urine Bilirubin Negative (NEG) Urine Urobilinogen Dipstick 0.2 mg/dL (0.2 mg/dL) Urine Leukocyte Esterase Negative (NEG) Urine RBC 0 /HPF (0-2) Urine WBC Rare /HPF (0-4) Urine Squamous Epithelial Cells Few /LPF Urine Bacteria 0 /HPF (0-FEW) Urine Hyaline Casts Occasional /HPF Urine Mucus Slight /LPF White Blood Count 6.3 x10^3/uL (4.0-11.0) 4.9 x10^3/uL (4.0-11.0) Red Blood Count 3.00 x10^6/uL (4.30-5.70) 2.54 x10^6/uL (4.30-5.70) Hemoglobin 9.1 g/dL (13.0-17.5) 7.8 g/dL (13.0-17.5) Hematocrit 27.4 % (39.0-53.0) 23.2 % (39.0-53.0) Mean Corpuscular Volume 91 fL (79-100) 91 fL (79-100) Mean Corpuscular Hemoglobin 30 pg (25-35) 31 pg (25-35) Mean Corpuscular Hemoglobin Concent 33 g/dL (31-37) 34 g/dL (31-37) Red Cell Distribution Width 14.7 % (11.5-14.5) 14.5 % (11.5-14.5) Platelet Count 162 x10^3/uL (140-400) 138 x10^3/uL (140-400) Neutrophils (%) (Auto) 53 % (31-73) 54 % (31-73) Lymphocytes (%) (Auto) 23 % (24-48) 27 % (24-48) Monocytes (%) (Auto) 12 % (0-9) 10 % (0-9) Eosinophils (%) (Auto) 11 % (0-3) 9 % (0-3) Basophils (%) (Auto) 1 % (0-3) 1 % (0-3) Neutrophils # (Auto) 3.4 x10^3/uL (1.8-7.7) 2.7 x10^3/uL (1.8-7.7) Lymphocytes # (Auto) 1.5 x10^3/uL (1.0-4.8) 1.3 x10^3/uL (1.0-4.8) Monocytes # (Auto) 0.7 x10^3/uL (0.0-1.1) 0.5 x10^3/uL (0.0-1.1) Eosinophils # (Auto) 0.7 x10^3/uL (0.0-0.7) 0.4 x10^3/uL (0.0-0.7) Basophils # (Auto) 0.1 x10^3/uL (0.0-0.2) 0.0 x10^3/uL (0.0-0.2) Sodium Level 144 mmol/L (136-145) 145 mmol/L (136-145) Potassium Level 3.9 mmol/L (3.5-5.1) 3.5 mmol/L (3.5-5.1) Chloride Level 106 mmol/L (98-107) 109 mmol/L (98-107) Carbon Dioxide Level 30 mmol/L (21-32) 28 mmol/L (21-32) Anion Gap 8 (6-14) 8 (6-14) Blood Urea Nitrogen 38 mg/dL (8-26) 36 mg/dL (8-26) Creatinine 2.5 mg/dL (0.7-1.3) 2.3 mg/dL (0.7-1.3) Estimated GFR (Cockcroft-Gault) 24.6 27.0 BUN/Creatinine Ratio 15 (6-20) 16 (6-20) Glucose Level 95 mg/dL (70-99) 90 mg/dL (70-99) Calcium Level 9.4 mg/dL (8.5-10.1) 8.1 mg/dL (8.5-10.1) Magnesium Level 2.3 mg/dL (1.8-2.4) Total Bilirubin 0.3 mg/dL (0.2-1.0) 0.3 mg/dL (0.2-1.0) Aspartate Amino Transf (AST/SGOT) 19 U/L (15-37) 13 U/L (15-37) Alanine Aminotransferase (ALT/SGPT) 20 U/L (16-63) 18 U/L (16-63) Alkaline Phosphatase 39 U/L (46-116) 32 U/L (46-116) Creatine Kinase 83 U/L (39-308) Creatine Kinase MB (Mass) 1.3 ng/mL (0.0-3.6) Creatine Kinase MB Relative Index 1.6 % (0-4) Troponin I Quantitative < 0.017 ng/mL (0.000-0.055) Total Protein 6.6 g/dL (6.4-8.2) 5.5 g/dL (6.4-8.2) Albumin 3.8 g/dL (3.4-5.0) 2.9 g/dL (3.4-5.0) Albumin/Globulin Ratio 1.4 (1.0-1.7) 1.1 (1.0-1.7) SARS-CoV-2 RNA (NICKY) Negative (Negative) SARS-CoV-2 Antigen (Rapid) Negative (NEGATIVE) Laboratory Tests Test 08/04/20 13:45 08/05/20 05:00 SARS-CoV-2 RNA (NICKY) Negative (Negative) SARS-CoV-2 Antigen (Rapid) Negative (NEGATIVE) White Blood Count 4.9 x10^3/uL (4.0-11.0) Red Blood Count 2.54 x10^6/uL (4.30-5.70) Hemoglobin 7.8 g/dL (13.0-17.5) Hematocrit 23.2 % (39.0-53.0) Mean Corpuscular Volume 91 fL (79-100) Mean Corpuscular Hemoglobin 31 pg (25-35) Mean Corpuscular Hemoglobin Concent 34 g/dL (31-37) Red Cell Distribution Width 14.5 % (11.5-14.5) Platelet Count 138 x10^3/uL (140-400) Neutrophils (%) (Auto) 54 % (31-73) Lymphocytes (%) (Auto) 27 % (24-48) Monocytes (%) (Auto) 10 % (0-9) Eosinophils (%) (Auto) 9 % (0-3) Basophils (%) (Auto) 1 % (0-3) Neutrophils # (Auto) 2.7 x10^3/uL (1.8-7.7) Lymphocytes # (Auto) 1.3 x10^3/uL (1.0-4.8) Monocytes # (Auto) 0.5 x10^3/uL (0.0-1.1) Eosinophils # (Auto) 0.4 x10^3/uL (0.0-0.7) Basophils # (Auto) 0.0 x10^3/uL (0.0-0.2) Sodium Level 145 mmol/L (136-145) Potassium Level 3.5 mmol/L (3.5-5.1) Chloride Level 109 mmol/L (98-107) Carbon Dioxide Level 28 mmol/L (21-32) Anion Gap 8 (6-14) Blood Urea Nitrogen 36 mg/dL (8-26) Creatinine 2.3 mg/dL (0.7-1.3) Estimated GFR (Cockcroft-Gault) 27.0 BUN/Creatinine Ratio 16 (6-20) Glucose Level 90 mg/dL (70-99) Calcium Level 8.1 mg/dL (8.5-10.1) Total Bilirubin 0.3 mg/dL (0.2-1.0) Aspartate Amino Transf (AST/SGOT) 13 U/L (15-37) Alanine Aminotransferase (ALT/SGPT) 18 U/L (16-63) Alkaline Phosphatase 32 U/L (46-116) Total Protein 5.5 g/dL (6.4-8.2) Albumin 2.9 g/dL (3.4-5.0) Albumin/Globulin Ratio 1.1 (1.0-1.7) Microbiology 08/04/20 Blood Culture - Final, Complete Medications Current Medications Sodium Chloride 1,000 ml @ 1,000 mls/hr 1X ONCE IV Last administered on 08/03/20at 22:17; Start 08/03/20 at 22:00; Stop 08/03/20 at 22:59; Status DC Sodium Chloride 1,000 ml @ 100 mls/hr Q10H IV Last administered on 08/04/20at 00:12; Start 08/03/20 at 23:00; Stop 08/04/20 at 22:59; Status DC Acetaminophen (Tylenol) 650 mg PRN Q6HRS PRN PO MILD PAIN 1-3; Start 08/04/20 at 08:45 Aspirin (Ecotrin) 81 mg DAILY PO Last administered on 08/05/20at 08:51; Start 08/04/20 at 09:00 Carvedilol (Coreg) 3.125 mg BIDWMEALS PO Last administered on 08/05/20 08:52; Start 08/04/20 at 09:00 Cyanocobalamin (Vitamin B-12) 1,000 mcg DAILY PO Last administered on 08/05/20 08:51; Start 08/04/20 at 09:00 Diclofenac Sodium (Voltaren) 1 roz BID TP Last administered on 08/05/20 08:53; Start 08/04/20 at 09:00 Fluticasone Propionate (Flonase) 2 spray DAILY NS Last administered on 08/05/20 08:51; Start 08/04/20 at 09:00 Guaifenesin (Mucinex) 600 mg BID PO Last administered on 08/05/20 08:51; Start 08/04/20 at 09:00 Hydralazine HCl (Apresoline) 25 mg BID PO Last administered on 08/05/20 08:53; Start 08/04/20 at 09:00 Acetaminophen/ Hydrocodone Bitart (Lortab 7.5/325) 1 tab PRN Q6HRS PRN PO MODERATE - SEVERE PAIN Last administered on 08/04/20 22:20; Start 08/04/20 at 08:45 Mirtazapine (Remeron) 7.5 mg HS PO Last administered on 08/04/20 20:16; Start 08/04/20 at 21:00 Montelukast Sodium (Singulair) 10 mg HS PO Last administered on 08/04/20 20:16; Start 08/04/20 at 21:00 Prednisone (Prednisone) 10 mg DAILY PO Last administered on 08/05/20 08:53; Start 08/04/20 at 09:00 Simvastatin (Zocor) 20 mg HS PO Last administered on 08/04/20 20:16; Start 08/04/20 at 21:00 Albuterol Sulfate (Ventolin Hfa) 1 puff [id number] INH Last administered on 08/05/20 11:44; Start 08/04/20 at 13:00 Fluticasone/ Vilanterol (Breo Ellipta 200-25 Mcg) 1 puff DAILY INH Last administered on 08/05/20 08:51; Start 08/04/20 at 09:00 Calcium/Vitamin D (Oscal D 500mg/ 200uts) 1 tab DAILY PO Last administered on 08/05/20 08:51; Start 08/04/20 at 09:00 Doxazosin Mesylate (Cardura) 8 mg HS PO Last administered on 08/04/20at 20:16; Start 08/04/20 at 21:00 Multivitamins (Thera M Plus) 1 tab DAILY PO Last administered on 08/05/20 08:51; Start 08/04/20 at 09:00 Pantoprazole Sodium (Protonix) 40 mg DAILYAC PO Last administered on 08/05/20 08:52; Start 08/04/20 at 09:00 Heparin Sodium (Porcine) (Heparin Sodium) 5,000 unit Q12HR SQ Last administered on 08/05/20 09:08; Start 08/04/20 at 09:00 Primidone (Mysoline) 25 mg [id number] PO Last administered on 08/05/20 08:51; Start 08/04/20 at 16:00 Calcium Carbonate/ Glycine (Tums) 500 mg PRN AFTMEALHC PRN PO INDIGESTION; Start 08/04/20 at 15:15 Vancomycin HCl (Vanco Per Pharmacy) 1 each PRN DAILY PRN MC SEE COMMENTS Last administered on 08/05/20at 11:21; Start 08/05/20 at 08:30 Vancomycin HCl 1.75 gm/Sodium Chloride 500 ml @ 250 mls/hr 1X ONCE IV Last administered on 08/05/20at 09:37; Start 08/05/20 at 10:00; Stop 08/05/20 at 11:59; Status DC Vancomycin HCl 1 gm/Sodium Chloride 250 ml @ 250 mls/hr Q24H IV ; Start 08/06/20 at 09:00 Vancomycin HCl (Vancomycin Trough Level) 1 each 1X ONCE MC ; Start 08/07/20 at 08:30; Stop 08/07/20 at 08:31 Sodium Chloride 1,000 ml @ 100 mls/hr Q10H IV Last administered on 08/05/20at 11:44; Start 08/05/20 at 11:30 Active Scripts Active Acyclovir 200 Mg Capsule 400 Mg PO [id number] 7 Days Prednisone (Prednisone) 10 Mg Tablet 1 Tab PO DAILY 30 Days Acyclovir 400 Mg Tablet 1 Tab PO BID Hydrocodone-Apap 7.5-325 (Hydrocodone Bit/Acetaminophen) 1 Tab Tablet 1 Tab PO PRN Q6HRS PRN 7 Days Tylenol (Acetaminophen) 325 Mg Tablet 650 Mg PO PRN Q6HRS PRN 30 Days Voltaren (Diclofenac Sodium) 100 Gm Gel..gram. 1 Roz TP BID 30 Days Vitamin B-12 (Cyanocobalamin (Vitamin B-12)) 1,000 Mcg Tablet 1,000 Mcg PO DAILY Reported Doxazosin Mesylate 4 Mg Tablet 8 Mg PO QHS Mysoline (Primidone) 50 Mg Tablet 50 Mg PO DAILY Mucinex (Guaifenesin) 600 Mg Tablet.er 600 Mg PO BID Fluticasone Propionate Nasal [place] (Fluticasone Propionate) 16 Gm [place].susp 2 [place] NS DAILY Aspir-Low (Aspirin) 81 Mg Tablet.dr 1 Tab PO DAILY Doxazosin Mesylate 8 Mg Tablet 1 Tab PO HS Omeprazole 40 Mg Capsule.dr 1 Cap PO DAILY Calcium 500-Vit D3 600 Tablet (Calcium Carbonate/Vitamin D3) 1 Each Tablet 1 Each PO DAILY Singulair Tablet (Montelukast Sodium) 10 Mg Tablet 10 Mg PO HS Centrum Silver Tablet (Multivits-Min/Fa/Lycopene/Lut) 1 Each Tablet 1 Each PO DAILY Carvedilol (Carvedilol) 3.125 Mg Tablet 1 Tab PO BID Hydralazine Hcl 25 Mg Tablet 1 Tab PO BID Mirtazapine 7.5 Mg Tablet 7.5 Mg PO HS Simvastatin 20 Mg Tablet 20 Mg PO HS Symbicort 160-4.5 Mcg Inhaler (Budesonide/Formoterol Fumarate) 10.2 Gm Hfa.aer.ad 2 Inhaler IH BID Albuterol Sulfate Conc Neb Soln (Albuterol Sulfate) 2.5 Mg/0.5 Ml Vial.neb 2.5 Mg IH [id number] Vitals/I & O Vital Sign - Last 24 Hours 08/04/20 08/04/20 08/04/20 08/04/20 15:00 16:56 19:00 20:00 Temp 98.2 98.8 98.2 98.8 Pulse 63 63 66 Resp 20 17 B/P (MAP) 109/54 (72) 109/54 121/57 (78) Pulse Ox 98 99 O2 Delivery Room Air Room Air Room Air 08/04/20 08/04/20 08/04/20 08/05/20 20:16 20:16 23:00 03:00 Temp 98.7 98.7 Pulse 66 66 59 52 Resp 18 17 B/P (MAP) 121/57 121/57 130/60 (83) Pulse Ox 99 O2 Delivery Room Air 08/05/20 08/05/20 08/05/20 08/05/20 07:00 08:00 08:52 08:53 Temp 98.3 98.3 Pulse 54 65 65 Resp 18 B/P (MAP) 115/56 (75) 115/56 115/56 Pulse Ox 95 O2 Delivery Room Air Room Air 08/05/20 11:00 Temp 98.1 98.1 Pulse 56 Resp 18 B/P (MAP) 109/51 (70) Pulse Ox 97 O2 Delivery Room Air Intake and Output 08/04/20 08/04/20 08/05/20 15:00 23:00 07:00 Intake Total 0 ml Output Total 50 ml 200 ml Balance -50 ml -200 ml Justicifation of Admission Dx: Justifications for Admission: Justification of Admission Dx: Comment: Sepsis: Infection RAFI JUDD MD Aug 05, 2020 12:55
--- NOTE | 2020-08-05 12:56 | PDOC ---
Infectious Disease Note Vital Sign Vital Signs Vital Signs Date Time Temp Pulse Resp B/P (MAP) Pulse Ox O2 Delivery O2 Flow Rate FiO2 08/05/20 11:00 98.1 56 18 109/51 (70) 97 Room Air 98.1 Labs Lab Laboratory Tests Test 08/04/20 13:45 08/05/20 05:00 SARS-CoV-2 RNA (NICKY) Negative (Negative) SARS-CoV-2 Antigen (Rapid) Negative (NEGATIVE) White Blood Count 4.9 x10^3/uL (4.0-11.0) Red Blood Count 2.54 x10^6/uL (4.30-5.70) Hemoglobin 7.8 g/dL (13.0-17.5) Hematocrit 23.2 % (39.0-53.0) Mean Corpuscular Volume 91 fL (79-100) Mean Corpuscular Hemoglobin 31 pg (25-35) Mean Corpuscular Hemoglobin Concent 34 g/dL (31-37) Red Cell Distribution Width 14.5 % (11.5-14.5) Platelet Count 138 x10^3/uL (140-400) Neutrophils (%) (Auto) 54 % (31-73) Lymphocytes (%) (Auto) 27 % (24-48) Monocytes (%) (Auto) 10 % (0-9) Eosinophils (%) (Auto) 9 % (0-3) Basophils (%) (Auto) 1 % (0-3) Neutrophils # (Auto) 2.7 x10^3/uL (1.8-7.7) Lymphocytes # (Auto) 1.3 x10^3/uL (1.0-4.8) Monocytes # (Auto) 0.5 x10^3/uL (0.0-1.1) Eosinophils # (Auto) 0.4 x10^3/uL (0.0-0.7) Basophils # (Auto) 0.0 x10^3/uL (0.0-0.2) Sodium Level 145 mmol/L (136-145) Potassium Level 3.5 mmol/L (3.5-5.1) Chloride Level 109 mmol/L (98-107) Carbon Dioxide Level 28 mmol/L (21-32) Anion Gap 8 (6-14) Blood Urea Nitrogen 36 mg/dL (8-26) Creatinine 2.3 mg/dL (0.7-1.3) Estimated GFR (Cockcroft-Gault) 27.0 BUN/Creatinine Ratio 16 (6-20) Glucose Level 90 mg/dL (70-99) Calcium Level 8.1 mg/dL (8.5-10.1) Total Bilirubin 0.3 mg/dL (0.2-1.0) Aspartate Amino Transf (AST/SGOT) 13 U/L (15-37) Alanine Aminotransferase (ALT/SGPT) 18 U/L (16-63) Alkaline Phosphatase 32 U/L (46-116) Total Protein 5.5 g/dL (6.4-8.2) Albumin 2.9 g/dL (3.4-5.0) Albumin/Globulin Ratio 1.1 (1.0-1.7) Micro Microbiology 08/04/20 Blood Culture - Final, Complete Objective Assessment Bacteremia with GPC in clusters, suggestive of stph (1 of 4 bottles) CARMELINA COPD CAD Diabetes Essential tremor followed by neurology Right eye blindness h/o fall Plan Plan of Care DC vancomycin with CARMELINA. He already received one dose today. f/u BC, GPC likely contaminate with only one bottle positive Monitor WBC trend, temp and renal function closely Supportive care full consult to follow Thank you Wants to see Vascular surgery but will defer to primary Attending Co-Sign Attending Co-Sign The patient was seen and interviewed as well as examined at the bedside. The chart was reviewed. The case was discussed. Agree with the plan of care. SCOTT LOWERY APRN Aug 05, 2020 12:56 JUANCARLOS STOCKTON MD Aug 05, 2020 15:46
[2020-08-05 15:00] VITALS: BP 123/53
--- NOTE | 2020-08-05 16:14 | CONS ---
DATE OF CONSULTATION: 08/05/2020 Tamra Dominguez, nurse practitioner, dictating for Dr. Kalin Castrejon, Infectious Disease. REFERRING PHYSICIAN: Dr. Blevins. REASON FOR CONSULTATION: Positive blood cultures. HISTORY OF PRESENT ILLNESS: This patient is an 85-year-old male who has a past medical history of chronic kidney disease stage 3, diabetes mellitus type 2 and hypertension. He presented with complaints of body aches, weakness, cough and congestion with fever. He was found dehydrated with a creatinine of 2.5, BUN 38. Urinalysis was unremarkable for infection. Blood cultures returned positive for gram-positive cocci suggestive of Staphylococcus in 1/4 bottles. He was given a dose of vancomycin. He was started on vancomycin. ID has been asked to consult for further evaluation and antibiotic management. The patient was recently hospitalized last month. He had been on ceftriaxone and azithromycin for bronchitis. He has a history of falls. He says he is not feeling too bad or too good. He has not had any fever since admission. He denies chills or sweats. Denies headaches. Denies nasal/sinus congestion or sore throat. Denies nausea, vomiting or diarrhea. Denies rash or itching. PAST MEDICAL HISTORY: Chronic kidney disease stage 3, hypertension, diabetes mellitus type 2, dementia, congestive heart failure, coronary artery disease, hyperlipidemia, DVT, COPD, bronchitis, GERD, carotid artery disease, osteoarthritis, L3 compression fracture, anemia, anxiety, non-ST elevation TN; essential tremor, followed by Neurology; right eye blindness from retinal artery disease, left eye macular degeneration, and BPH, history of Streptococcus mitis/oralis bacteremia. PAST SURGICAL HISTORY: Coronary artery catheterization, angioplasty with two stents, appendectomy, abdominal surgery. SOCIAL HISTORY: The patient is a former smoker. He is an [employer] . He is a . He does not have any pets. FAMILY HISTORY: Noncontributory. ALLERGIES: SULFA, PLAVIX, VALSARTAN AND WARFARIN. MEDICATIONS: Reviewed on the JUN and includes vancomycin. REVIEW OF SYSTEMS: Per HPI, otherwise all other review of systems are negative. PHYSICAL EXAMINATION: VITAL SIGNS: Temperature is 98.1, T-max 99.0, blood pressure 109/51, heart rate 56, respiratory rate 18, pulse oximetry 97% on room air. GENERAL: The patient is sitting in the chair, alert and eating lunch. HEENT: Normal conjunctivae. Oral cavity clear. Hard of hearing. NECK: Supple. LUNGS: Clear to auscultation. No accessory muscle use. HEART: Normal S1, S2. ABDOMEN: Soft, nontender with bowel sounds present. EXTREMITIES: Trace edema, lower extremities bilaterally. No cyanosis. SKIN: Warm to touch. No signs of rash. NEUROLOGIC: Alert and answering questions appropriately, somewhat forgetful. LABORATORY DATA: Today's WBC 4.9, hemoglobin 7.8, platelets 138,000. Sodium 145, potassium 3.5, creatinine 2.3 from 2.5 on admission, BUN 36. Total bilirubin 0.3, AST 13, ALT 18. Creatinine kinase 83, troponin less than 0.017, albumin 2.9. Urinalysis showed no bacteria. COVID negative. Blood cultures show gram-positive cocci in clusters, suggestive of Staphylococcus in 1/4 bottles. Chest x-ray showed artifact, right apex. No definite infiltrates. IMPRESSION: 1. Bacteremia with gram-positive cocci in clusters suggestive of Staphylococcus, 1/4 bottles, could be contaminant. 2. Acute kidney injury. 3. Chronic obstructive pulmonary disease. 4. Coronary artery disease. 5. Diabetes mellitus type 2. 6. Essential tremor. 7. Right eye blindness. 8. History of fall. PLAN: 1. Recommend discontinuing the vancomycin with acute kidney injury. He has already received one dose today. 2. Follow up blood cultures, gram-positive cocci likely contaminant with only 1 bottle positive. 3. Monitor WBC trend, temperature and renal function closely. 4. Supportive care. Thank you, Dr. Blevins, for asking us to participate in this patient's care. Should you have further questions or concerns, please call. ANGELLA MARI: Precious TID: [id number]
[2020-08-05 19:00] VITALS: BP 130/59
[2020-08-05] MEDS: MIRTAZAPINE 7.5 MG TABLET. PO SCH (19:48)
[2020-08-05] MEDS: SIMVASTATIN 20 MG TABLET PO SCH (19:48)
[2020-08-05] MEDS: DOXAZOSIN MESYLATE 4 MG TABLET. PO SCH (19:48)
[2020-08-05] MEDS: MONTELUKAST SODIUM 10 MG TABLET. PO SCH (21:00)
[2020-08-05 23:02] VITALS: BP 126/60
[2020-08-06 03:16] VITALS: BP 139/65
[2020-08-06 04:21] LABS: BASO % 1 % (0-3); EOS # 0.4 x10^3/uL (0.0-0.7); EOS % 9 % (0-3); HEMATOCRIT 23.3 % (39.0-53.0); HEMOGLOBIN 7.7 g/dL (13.0-17.5); LYMPH # 1.1 x10^3/uL (1.0-4.8); LYMPH % 22 % (24-48); MEAN CORPUSCULAR HEMOGLOBIN 30 pg (25-35); MEAN CORPUSCULAR HGB CONC 33 g/dL (31-37); MEAN CORPUSCULAR VOLUME 91 fL (79-100); MONO # 0.4 x10^3/uL (0.0-1.1); MONO % 8 % (0-9); NEUT # 2.9 x10^3/uL (1.8-7.7); NEUT % 60 % (31-73); PLATELET COUNT 136 x10^3/uL (140-400); RED BLOOD COUNT 2.55 x10^6/uL (4.30-5.70); RED CELL DISTRIBUTION WIDTH 14.5 % (11.5-14.5); WHITE BLOOD COUNT 4.9 x10^3/uL (4.0-11.0)
[2020-08-06 04:32] LABS: CALCIUM 7.8 mg/dL (8.5-10.1); CREATININE 2.1 mg/dL (0.7-1.3); POTASSIUM 3.7 mmol/L (3.5-5.1)
[2020-08-06 07:00] VITALS: BP 114/54
[2020-08-06] MEDS: ALBUTEROL SULFATE 8GM INHALER. INH SCH ×4 (07:00→20:48)
[2020-08-06] MEDS: IV NORMAL SALINE 1000ML BAG 1,000 ML IV SCH (07:30)
[2020-08-06] MEDS: CARVEDILOL 3.125 MG TABLET. PO SCH ×2 (08:00→17:00)
[2020-08-06] MEDS: DICLOFENAC SODIUM 1% TOPICAL GEL 100GM TUBE. TP SCH ×2 (08:54→20:47)
[2020-08-06] MEDS: FLUTICASONE 50MCG/NASAL SPRAY 16GM BOTTLE. NS SCH (08:54)
[2020-08-06] MEDS: FLUTICASONE/VILANTEROL 200/25 INHALER. INH SCH (08:54)
[2020-08-06] MEDS: ASPIRIN ENTERIC COATED 81 MG TABLET.DR. PO SCH (08:55)
[2020-08-06] MEDS: MULTIVITAMIN with MINERAL TABLET. PO SCH (08:55)
[2020-08-06] MEDS: hydrALAZINE 25 MG TABLET PO SCH ×2 (08:56→20:48)
[2020-08-06] MEDS: PRIMIDONE 50 MG TABLET PO SCH ×2 (08:56→17:00)
[2020-08-06] MEDS: CYANOCOBALAMIN (VITAMIN B-12) 1,000 MCG TABLET. PO SCH (08:56)
[2020-08-06] MEDS: PANTOPRAZOLE 40 MG TABLET.DR. PO SCH (08:56)
[2020-08-06] MEDS: CALCIUM CARB/VIT D3 500/200 TABLET. PO SCH (08:56)
[2020-08-06] MEDS: predniSONE 10 MG TABLET PO SCH (08:56)
[2020-08-06] MEDS ORDERED: VANCOMYCIN 1 GM in IV NORMAL SALINE 250ML 250 ML IV SCH (09:00)
[2020-08-06] MEDS: HEPARIN for SUB-Q USE 5,000 UNIT/ML VIAL. SQ SCH ×2 (09:00→20:57)
--- NOTE | 2020-08-06 09:17 | PDOC ---
IM PROGRESS NOTES- Subjective Subjective No complaints of pain or dyspnea. He feels very weak. Tremors are improving. Objective Vitals/I&O Vital Signs Date Time Temp Pulse Resp B/P (MAP) Pulse Ox O2 Delivery O2 Flow Rate FiO2 08/06/20 07:00 97.8 52 18 114/54 (74) 96 Room Air 97.8 I & O 08/05/20 08/05/20 08/06/20 15:00 23:00 07:00 Intake Total 600 ml 1300 ml Output Total 200 ml 550 ml Balance 400 ml 1300 ml -550 ml Physical Exam Physical Exam General appearance - alert, chronically ill appearing, and in no distress and oriented to person, place, and time Mental Status - alert, oriented to person, place, and time, affect appropriate to mood Head - normal Chest -decreased breath sounds at bases Heart - S1 and S2 normal Abdomen - soft, nontender Neurological - alert and oriented, forgetful Musculoskeletal -generalized weakness, tremors Extremities - no pedal edema Labs Laboratory Tests Test 08/06/20 03:40 White Blood Count 4.9 x10^3/uL (4.0-11.0) Red Blood Count 2.55 x10^6/uL (4.30-5.70) L Hemoglobin 7.7 g/dL (13.0-17.5) L Hematocrit 23.3 % (39.0-53.0) L Mean Corpuscular Volume 91 fL (79-100) Mean Corpuscular Hemoglobin 30 pg (25-35) Mean Corpuscular Hemoglobin Concent 33 g/dL (31-37) Red Cell Distribution Width 14.5 % (11.5-14.5) Platelet Count 136 x10^3/uL (140-400) L Neutrophils (%) (Auto) 60 % (31-73) Lymphocytes (%) (Auto) 22 % (24-48) L Monocytes (%) (Auto) 8 % (0-9) Eosinophils (%) (Auto) 9 % (0-3) H Basophils (%) (Auto) 1 % (0-3) Neutrophils # (Auto) 2.9 x10^3/uL (1.8-7.7) Lymphocytes # (Auto) 1.1 x10^3/uL (1.0-4.8) Monocytes # (Auto) 0.4 x10^3/uL (0.0-1.1) Eosinophils # (Auto) 0.4 x10^3/uL (0.0-0.7) Basophils # (Auto) 0.0 x10^3/uL (0.0-0.2) Sodium Level 146 mmol/L (136-145) H Potassium Level 3.7 mmol/L (3.5-5.1) Chloride Level 111 mmol/L (98-107) H Carbon Dioxide Level 25 mmol/L (21-32) Anion Gap 10 (6-14) Blood Urea Nitrogen 34 mg/dL (8-26) H Creatinine 2.1 mg/dL (0.7-1.3) H Estimated GFR (Cockcroft-Gault) 30.0 Glucose Level 117 mg/dL (70-99) H Calcium Level 7.8 mg/dL (8.5-10.1) L Laboratory Tests 08/06/20 03:40 Laboratory Tests 08/06/20 03:40 Meds Current Medications Medications (Trade) Dose Ordered Sig/Juhi Route PRN Reason Start Time Stop Time Status Last Admin Dose Admin Vancomycin HCl 1.75 gm/Sodium Chloride 500 ml @ 250 mls/hr 1X ONCE IV 08/05/20 10:00 08/05/20 11:59 DC 08/05/20 09:37 Sodium Chloride 1,000 ml @ 100 mls/hr Q10H IV 08/05/20 11:30 08/05/20 11:44 Assessment Assessment Problems Medical Problems: (1) Dehydration Status: Acute (2) Tremor, unspecified Status: Acute IMPRESSION:Positive blood c/s 1/4 gram positive cocci 1. Acute renal failure with chronic kidney disease 3 with baseline creatinine of 1.6. This is due to poor oral intake. The patient has stated that she has not been eating much. 2. Fever. Monitor. Chest x-ray did not show any acute changes. Urinalysis is negative. 3. Chronic obstructive pulmonary disease. 4. Coronary artery disease status post placement of two stents. 5. History of diabetes mellitus. 6. Hypertension with chronic kidney disease 3. 7. Physical deconditioning. 8. Tremors. The patient denies using breathing treatments. 9. Carotid artery disease. 10. Osteoarthritis. 11. History of L3 compression fracture. 12. Anemia. 13. Anxiety. PLAN: Acute renal failure with CKD-improving slowly. Continue IV fluids. Creatinine 2.1 sodium 146. Baseline creatinine is 1.6 Low-grade fever and blood cultures 1 out of 4 positive. Blood culture shows staph. ID pending. Possibly contamination. Patient was given 1 dose of IV vancomycin. Stopped because of CARMELINA. Consulted Dr. Melton for infectious disease evaluation and management. Essential tremors-Dr. De Jesus started him on primidone. Admit to [facility]. Continue IV fluids. Order PT, OT. Consult Dr. De Jesus for neurology evaluation and management. Generalized weakness-PT/OT. Patient will benefit from placement in long term unit. For details,please review the orders. Prognosis of this patient is extremely poor because of his multiple medical problems. Monitor renal function. Monitor fever and infection. Plan Plan For more details regarding further plans, please refer to the orders. Justifications for Admission Other Justification MARCELLUS FIERRO MD Aug 06, 2020 09:17
[2020-08-06] MEDS: HYDROcodone/APAP 7.5/325MG 1 TAB TABLET PO PRN (10:36)
[2020-08-06 11:00] VITALS: BP 114/54
--- NOTE | 2020-08-06 11:51 | PDOC ---
Infectious Disease Note Subjective Subjective Hungry Some phlegm Denies SOA/CP/F/C/N/V/rash ROS ROS as mentioned above Vital Sign Vital Signs Vital Signs Date Time Temp Pulse Resp B/P (MAP) Pulse Ox O2 Delivery O2 Flow Rate FiO2 08/06/20 08:56 52 114/54 08/06/20 08:00 Room Air 08/06/20 07:00 97.8 18 96 97.8 Physical Exam PHYSICAL EXAM GENERAL: Propped up in bed, alert, no distress HEENT: Normal conjunctivae. Oral cavity clear. Hard of hearing. NECK: Supple. LUNGS: Clear to auscultation. No accessory muscle use. HEART: Normal S1, S2. ABDOMEN: Soft, nontender with bowel sounds present. EXTREMITIES: Trace edema, lower extremities bilaterally. No cyanosis. SKIN: Warm to touch. No signs of rash. NEUROLOGIC: Alert and answering questions appropriately, somewhat forgetful. PIV Labs Lab Laboratory Tests Test 08/06/20 03:40 White Blood Count 4.9 x10^3/uL (4.0-11.0) Red Blood Count 2.55 x10^6/uL (4.30-5.70) Hemoglobin 7.7 g/dL (13.0-17.5) Hematocrit 23.3 % (39.0-53.0) Mean Corpuscular Volume 91 fL (79-100) Mean Corpuscular Hemoglobin 30 pg (25-35) Mean Corpuscular Hemoglobin Concent 33 g/dL (31-37) Red Cell Distribution Width 14.5 % (11.5-14.5) Platelet Count 136 x10^3/uL (140-400) Neutrophils (%) (Auto) 60 % (31-73) Lymphocytes (%) (Auto) 22 % (24-48) Monocytes (%) (Auto) 8 % (0-9) Eosinophils (%) (Auto) 9 % (0-3) Basophils (%) (Auto) 1 % (0-3) Neutrophils # (Auto) 2.9 x10^3/uL (1.8-7.7) Lymphocytes # (Auto) 1.1 x10^3/uL (1.0-4.8) Monocytes # (Auto) 0.4 x10^3/uL (0.0-1.1) Eosinophils # (Auto) 0.4 x10^3/uL (0.0-0.7) Basophils # (Auto) 0.0 x10^3/uL (0.0-0.2) Sodium Level 146 mmol/L (136-145) Potassium Level 3.7 mmol/L (3.5-5.1) Chloride Level 111 mmol/L (98-107) Carbon Dioxide Level 25 mmol/L (21-32) Anion Gap 10 (6-14) Blood Urea Nitrogen 34 mg/dL (8-26) Creatinine 2.1 mg/dL (0.7-1.3) Estimated GFR (Cockcroft-Gault) 30.0 Glucose Level 117 mg/dL (70-99) Calcium Level 7.8 mg/dL (8.5-10.1) Micro BLOOD CULTURE Final GRAM POSITIVE COCCI IN CLUSTERS, SUGGSETIVE OF STAPH, IN 1 OF 4 BOTTLES, TWO SETS DRAWN. Objective Assessment Bacteremia with GPC in clusters, suggestive of stph (1 of 4 bottles) CARMELINA COPD CAD Diabetes Essential tremor followed by neurology Right eye blindness h/o fall Plan Plan of Care Last dose vanc 08/05. f/u BC, GPC likely contaminate with only one bottle positive Monitor WBC trend, temp and renal function closely Supportive care Discussed with nursing Doing ok - in chair D/c Vanc - contamination Attending Co-Sign Attending Co-Sign The patient was seen and interviewed as well as examined at the bedside. The chart was reviewed. The case was discussed. Agree with the plan of care. SCOTT LOWERY APRN Aug 06, 2020 11:51 JUANCARLOS STOCKTON MD Aug 06, 2020 15:14
[2020-08-06 15:00] VITALS: BP 118/58
[2020-08-06 19:00] VITALS: BP 145/66
[2020-08-06] MEDS: DOXAZOSIN MESYLATE 4 MG TABLET. PO SCH (20:47)
[2020-08-06] MEDS: MIRTAZAPINE 7.5 MG TABLET. PO SCH (20:47)
[2020-08-06] MEDS: MONTELUKAST SODIUM 10 MG TABLET. PO SCH (20:47)
[2020-08-06] MEDS: SIMVASTATIN 20 MG TABLET PO SCH (20:47)
[2020-08-06 23:02] VITALS: BP 138/63
[2020-08-07 03:21] VITALS: BP 116/56
[2020-08-07] MEDS: IV NORMAL SALINE 1000ML BAG 1,000 ML IV SCH ×4 (03:30→23:30)
[2020-08-07] MEDS: ALBUTEROL SULFATE 8GM INHALER. INH SCH ×4 (06:38→20:28)
[2020-08-07] MEDS: PANTOPRAZOLE 40 MG TABLET.DR. PO SCH (06:38)
[2020-08-07 07:00] VITALS: BP 125/59
[2020-08-07] MEDS: DICLOFENAC SODIUM 1% TOPICAL GEL 100GM TUBE. TP SCH ×2 (08:34→20:28)
[2020-08-07] MEDS: FLUTICASONE/VILANTEROL 200/25 INHALER. INH SCH (08:34)
[2020-08-07] MEDS: FLUTICASONE 50MCG/NASAL SPRAY 16GM BOTTLE. NS SCH (08:34)
[2020-08-07] MEDS: CALCIUM CARB/VIT D3 500/200 TABLET. PO SCH (08:35)
[2020-08-07] MEDS: hydrALAZINE 25 MG TABLET PO SCH ×2 (08:35→20:30)
[2020-08-07] MEDS ORDERED: PRIM50TA24 PO (08:35)
[2020-08-07] MEDS: predniSONE 10 MG TABLET PO SCH (08:35)
[2020-08-07] MEDS: MULTIVITAMIN with MINERAL TABLET. PO SCH (08:35)
[2020-08-07] MEDS: CYANOCOBALAMIN (VITAMIN B-12) 1,000 MCG TABLET. PO SCH (08:35)
[2020-08-07] MEDS: ASPIRIN ENTERIC COATED 81 MG TABLET.DR. PO SCH (08:35)
[2020-08-07] MEDS: CARVEDILOL 3.125 MG TABLET. PO SCH ×2 (08:36→17:07)
[2020-08-07] MEDS: HEPARIN for SUB-Q USE 5,000 UNIT/ML VIAL. SQ SCH ×2 (08:37→20:39)
[2020-08-07] MEDS: PRIMIDONE 50 MG TABLET PO SCH ×2 (08:37→15:52)
--- NOTE | 2020-08-07 08:37 | SNU/HH DC ---
DISCHARGE ORDERS DISCHARGE INFORMATION: FINAL DIAGNOSIS Problems Medical Problems: (1) Dehydration Status: Acute (2) Tremor, unspecified Status: Acute CONDITION ON DISCHARGE: Stable HALF-WAY: SNF STAY <30 DAYS: Yes POST DISCHARGE ORDERS: ACTIVITY ORDERS: Activity as tolerated WEIGHT BEARING STATUS: As tolerated DIET AFTER DISCHARGE: Cardiac OTHER ORDERS: Fall precautions CHECKS AFTER DISCHARGE: CHECKS AFTER DISCHARGE: Check blood press - daily, Check your Temp as needed, Weigh Yourself Daily FOLLOW-UP: PHYSICIAN FOLLOW-UP: see Dr.Pratip Fierro in 1 week after discharge LAB ORDERS FOR FOLLOW-UP: CBC, CMP once a week TREATMENT/EQUIPMENT ORDERS: ADAPTIVE EQUIPMENT NEEDED: None, Walker RESPIRATORY EQUIPMENT NEEDED: Nebulizer Physical Therapy For: Evalulation/Treatment Occupational Therapy For: Evaluation/Treatment Speech Language Pathology For: Evaluation/Treatment DISCHARGE MEDICATIONS: Home Meds Active Scripts Sennosides/Docusate Sodium (STOOL SOFT-STIMULANT LAX TAB) 1 Each Tablet, 2 TAB PO [id number] for constipation for 30 Days, #60 TAB Prov:MARCELLUS FIERRO MD 08/07/20 Primidone (MYSOLINE) 50 Mg Tablet, 50 MG PO BID for tremor for 30 Days, #60 TAB 3 Refills Prov:MARCELLUS FIERRO MD 08/07/20 Acyclovir (ACYCLOVIR) 200 Mg Capsule, 400 MG PO [id number] for herpes recurrrence for 7 Days, #21 CAP Prov:MARCELLUS FIERRO MD 07/05/20 Prednisone (PREDNISONE ) 10 Mg Tablet, 1 TAB PO DAILY for copd for 30 Days, #30 TAB 0 Refills Prov:MARCELLUS FIERRO MD 07/05/20 Hydrocodone Bit/Acetaminophen (HYDROCODONE-APAP 7.5-325 ) 1 Tab Tablet, 1 TAB PO PRN Q6HRS PRN for MODERATE - SEVERE PAIN for 7 Days, #28 TAB Prov:MARCELLUS FIERRO MD 01/28/19 Acetaminophen (TYLENOL) 325 Mg Tablet, 650 MG PO PRN Q6HRS PRN for MILD PAIN for 30 Days, #120 TAB Prov:MARCELLUS FIERRO MD 05/11/18 Diclofenac Sodium (VOLTAREN) 100 Gm Gel..gram., 1 SONAM TP BID for arthritis for 30 Days, #100 GM 1 Refill Prov:MARCELLUS FIERRO MD 05/11/18 Cyanocobalamin (Vitamin B-12) (VITAMIN B-12) 1,000 Mcg Tablet, 1000 MCG PO DAILY, #30 TAB Prov:MARCELLUS FIERRO MD 03/24/14 Reported Medications Guaifenesin (MUCINEX) 600 Mg Tablet.er, 600 MG PO BID for congestion, TAB.SR 06/28/20 Fluticasone Propionate (FLUTICASONE PROPIONATE NASAL SPRAY) 16 Gm [place].susp, 2 SPRAY NS DAILY for ALLERGIES, #1 INHALER 11 Refills 01/17/19 Aspirin (ASPIR-LOW) 81 Mg Tablet.dr, 1 TAB PO DAILY for CIRCULATION, #30 TAB 3 Refills 01/17/19 Doxazosin Mesylate (DOXAZOSIN MESYLATE) 8 Mg Tablet, 1 TAB PO HS for PROSTATE, #30 TAB 5 Refills 01/17/19 Omeprazole (OMEPRAZOLE) 40 Mg Capsule.dr, 1 CAP PO DAILY for GERD, #30 CAP 3 Refills 01/17/19 Calcium Carbonate/Vitamin D3 (Calcium 500-Vit D3 600 Tablet) 1 Each Tablet, 1 EACH PO DAILY for SUPPLEMENT, TAB 09/09/18 Montelukast Sodium (SINGULAIR TABLET ) 10 Mg Tablet, 10 MG PO HS for FOR ASTHMA, #30 TAB 0 Refills 03/20/14 Multivits-Min/Fa/Lycopene/Lut (CENTRUM SILVER TABLET) 1 Each Tablet, 1 EACH PO DAILY 03/20/14 Carvedilol (CARVEDILOL ) 3.125 Mg Tablet, 1 TAB PO BID, #60 TAB 5 Refills 03/20/14 Hydralazine Hcl (HYDRALAZINE HCL) 25 Mg Tablet, 1 TAB PO BID, #60 TAB 5 Refills 03/20/14 Mirtazapine (MIRTAZAPINE) 7.5 Mg Tablet, 7.5 MG PO HS 08/03/13 Simvastatin (SIMVASTATIN) 20 Mg Tablet, 20 MG PO HS 08/03/13 Budesonide/Formoterol Fumarate (SYMBICORT 160-4.5 MCG INHALER) 10.2 Gm Hfa.aer.ad, 2 INHALER IH BID 08/03/13 Albuterol Sulfate (ALBUTEROL SULFATE CONC NEB SOLN) 2.5 Mg/0.5 Ml Vial.neb, 2.5 MG IH [id number] 4/22/14 Discontinued Reported Medications Doxazosin Mesylate (DOXAZOSIN MESYLATE) 4 Mg Tablet, 8 MG PO QHS for retention 08/04/20 Discontinued Scripts Acyclovir (ACYCLOVIR) 400 Mg Tablet, 1 TAB PO BID for herpes simplex, #10 TAB 3 Refills Prov:MARCELLUS FIERRO MD 07/15/19 MARCELLUS FIERRO MD Aug 07, 2020 08:36
--- NOTE | 2020-08-07 08:42 | PDOC3 ---
IM DISCHARGE SUMMARY Date of Admission Date of Admission Date of Admission: Aug 03, 2020 at 21:53 Date of Discharge Date of Discharge August 07, 2020 Primary Diagnosis Primary Diagnosis 1. Acute renal failure with chronic kidney disease 3 with baseline creatinine of 1.6. This is due to poor oral intake. The patient has stated that she has not been eating much. 2. Fever. Monitor. Chest x-ray did not show any acute changes. Urinalysis is negative. 3. Chronic obstructive pulmonary disease. 4. Coronary artery disease status post placement of two stents. 5. History of diabetes mellitus. 6. Hypertension with chronic kidney disease 3. 7. Physical deconditioning. 8. Tremors. The patient denies using breathing treatments. 9. Carotid artery disease. 10. Osteoarthritis. 11. History of L3 compression fracture. 12. Anemia. 13. Anxiety. Consults Consults Johny Dye MD; Bandar Antonio MD Brief hospital course Brief hospital course This 85-year-old male who has been admitted to this institution several times in the past, presented to the emergency room with complaints of weakness and increased tremors. The patient states that he has been very weak, has body aches. He has some cough and congestion, but mucus is clear. He denies any dysuria. He was recently discharged from this hospital after being treated for recurrent falls. He had been [facility] jail [facility]. The patient was noted to have low-grade fever. His creatinine was noted to be 2.5. His baseline creatinine is 1.6. He had increased BUN of 38. Sodium was 144, potassium 3.9. Troponin was less than 0.017. Cardiac enzymes were normal. Urinalysis was unremarkable. WBC count was 6.3, hemoglobin 9.1. In the emergency room, the patient was noted to be very weak and had increased tremors and was unsteady. Because of the acute renal failure with dehydration, the patient was admitted for further evaluation and management. For more details regarding the past history, family history, social history, surgical history and other details, please refer to History and Physical. Acute renal failure with CKD-improving slowly. Treated with IV fluids. Creatinine 2.1 sodium 146. Baseline creatinine is 1.6. Today's labs are pending. Low-grade fever and blood cultures 1 out of 4 positive. Blood culture shows staph capitis. Possibly contamination. Patient was given 1 dose of IV vancomycin. Stopped because of CARMELINA. Consulted Dr. Melton for infectious disease evaluation and management. Fever has resolved. Patient is not on any antibiotics. Essential tremors-Dr. De Jesus started him on primidone. Tremors are improving. Admit to [facility]. Continue IV fluids. Order PT, OT. Consult Dr. De Jesus for neurology evaluation and management. Generalized weakness-PT/OT. Patient is gradually improving. Transfer to jail unit. Long-term as well as short-term prognosis of this patient is poor due to his multiple medical problems. Medications Medications reviewed and reconciled for discharge. Allergy Allergies Coded Allergies Type Severity Reaction Last Updated Verified Sulfa (Sulfonamide Antibiotics) Allergy Severe 02/24/20 Yes clopidogrel Allergy Intermediate 02/24/20 Yes valsartan Allergy Intermediate 02/24/20 Yes warfarin Allergy Intermediate 02/24/20 Yes Follow up in 5 days. Comments Discharge Management - 35 minutes. For other details please refer to discharge instructions Justicifation of Admission Dx: Justifications for Admission: Justification of Admission Dx: Comment: Sepsis: Infection MARCELLUS FIERRO MD Aug 07, 2020 08:42
[2020-08-07] MEDS ORDERED: SENN-189 PO (08:58)
[2020-08-07] MEDS ORDERED: MULTIVITAMIN I-VITE TABLET. PO SCH (09:00)
[2020-08-07] MEDS ORDERED: SENNOSIDES/DOCUSATE 8.6/50MG TABLET. PO SCH (10:00)
[2020-08-07] MEDS: HYDROcodone/APAP 7.5/325MG 1 TAB TABLET PO PRN ×2 (10:24→20:30)
[2020-08-07 10:38] LABS: CALCIUM 7.8 mg/dL (8.5-10.1); CREATININE 1.8 mg/dL (0.7-1.3); GFR 35.9; POTASSIUM 4.1 mmol/L (3.5-5.1)
--- NOTE | 2020-08-07 10:47 | PDOC ---
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 No evidence of stroke, myelopathy, or radiculopathy. With the hyporeflexia there may be a component of neuropathy. Acute renal failure with chronic kidney disease, fever, chronic obstructive pulmonary disease, coronary artery disease, diabetes, hypertension, carotid disease, right eye blindness, left eye macular degeneration, osteoarthritis, L3 compression fracture history, anemia, anxiety Plan Contrinue Primidone 50 mg twice a day Physical and Occupational Therapy Treat medical issues. Needs SNU Follow-up with [facility] in 6 weeks. Subjective Feels better, not complaining about the food Objective Vital Signs Date Time Temp Pulse Resp B/P (MAP) Pulse Ox O2 Delivery O2 Flow Rate FiO2 08/07/20 08:36 52 125/59 08/07/20 08:00 Room Air 08/07/20 07:00 98.6 18 98 98.6 Intake and Output 08/07/20 07:00 Intake Total 1000 ml Output Total 1150 ml Balance -150 ml Intake Oral 300 ml IV Total 700 ml Output Urine Total 1150 ml PHYSICAL EXAM Alert. Oriented to time, place and person. Blind in the right eye, pupil not reactive, decreased visual acuity in the left eye. Wearing dark glasses EOMI. CN: no focal findings. Muscle tone: normal. Muscle strength: 4/5 DTR: 0-1+ Plantar reflex: Flexor Gait: not examined in bed. Sensory exam: Stocking loss. No cerebellar signs elicited. Postural tremor is better Review of Relevant I have reviewed the following items tawnya (where applicable) has been applied. Labs Laboratory Tests Test 08/06/20 03:40 08/07/20 09:35 White Blood Count 4.9 x10^3/uL (4.0-11.0) Red Blood Count 2.55 x10^6/uL (4.30-5.70) Hemoglobin 7.7 g/dL (13.0-17.5) Hematocrit 23.3 % (39.0-53.0) Mean Corpuscular Volume 91 fL (79-100) Mean Corpuscular Hemoglobin 30 pg (25-35) Mean Corpuscular Hemoglobin Concent 33 g/dL (31-37) Red Cell Distribution Width 14.5 % (11.5-14.5) Platelet Count 136 x10^3/uL (140-400) Neutrophils (%) (Auto) 60 % (31-73) Lymphocytes (%) (Auto) 22 % (24-48) Monocytes (%) (Auto) 8 % (0-9) Eosinophils (%) (Auto) 9 % (0-3) Basophils (%) (Auto) 1 % (0-3) Neutrophils # (Auto) 2.9 x10^3/uL (1.8-7.7) Lymphocytes # (Auto) 1.1 x10^3/uL (1.0-4.8) Monocytes # (Auto) 0.4 x10^3/uL (0.0-1.1) Eosinophils # (Auto) 0.4 x10^3/uL (0.0-0.7) Basophils # (Auto) 0.0 x10^3/uL (0.0-0.2) Sodium Level 146 mmol/L (136-145) 149 mmol/L (136-145) Potassium Level 3.7 mmol/L (3.5-5.1) 4.1 mmol/L (3.5-5.1) Chloride Level 111 mmol/L (98-107) 113 mmol/L (98-107) Carbon Dioxide Level 25 mmol/L (21-32) 24 mmol/L (21-32) Anion Gap 10 (6-14) 12 (6-14) Blood Urea Nitrogen 34 mg/dL (8-26) 28 mg/dL (8-26) Creatinine 2.1 mg/dL (0.7-1.3) 1.8 mg/dL (0.7-1.3) Estimated GFR (Cockcroft-Gault) 30.0 35.9 Glucose Level 117 mg/dL (70-99) 163 mg/dL (70-99) Calcium Level 7.8 mg/dL (8.5-10.1) 7.8 mg/dL (8.5-10.1) Laboratory Tests Test 08/07/20 09:35 Sodium Level 149 mmol/L (136-145) Potassium Level 4.1 mmol/L (3.5-5.1) Chloride Level 113 mmol/L (98-107) Carbon Dioxide Level 24 mmol/L (21-32) Anion Gap 12 (6-14) Blood Urea Nitrogen 28 mg/dL (8-26) Creatinine 1.8 mg/dL (0.7-1.3) Estimated GFR (Cockcroft-Gault) 35.9 Glucose Level 163 mg/dL (70-99) Calcium Level 7.8 mg/dL (8.5-10.1) Microbiology 08/05/20 Blood Culture - Preliminary, Resulted NO GROWTH AFTER 2 DAYS Medications Current Medications Sodium Chloride 1,000 ml @ 1,000 mls/hr 1X ONCE IV Last administered on 08/03/20 22:17; Start 08/03/20 at 22:00; Stop 08/03/20 at 22:59; Status DC Sodium Chloride 1,000 ml @ 100 mls/hr Q10H IV Last administered on 08/04/20at 00:12; Start 08/03/20 at 23:00; Stop 08/04/20 at 22:59; Status DC Acetaminophen (Tylenol) 650 mg PRN Q6HRS PRN PO MILD PAIN 1-3; Start 08/04/20 at 08:45 Aspirin (Ecotrin) 81 mg DAILY PO Last administered on 08/07/20 08:35; Start 08/04/20 at 09:00 Carvedilol (Coreg) 3.125 mg BIDWMEALS PO Last administered on 08/07/20at 08:36; Start 08/04/20 at 09:00 Cyanocobalamin (Vitamin B-12) 1,000 mcg DAILY PO Last administered on 08/07/20 08:35; Start 08/04/20 at 09:00 Diclofenac Sodium (Voltaren) 1 roz BID TP Last administered on 08/07/20 08:34; Start 08/04/20 at 09:00 Fluticasone Propionate (Flonase) 2 spray DAILY NS Last administered on 08/07/20 08:34; Start 08/04/20 at 09:00 Guaifenesin (Mucinex) 600 mg BID PO Last administered on 08/07/20 08:35; Start 08/04/20 at 09:00 Hydralazine HCl (Apresoline) 25 mg BID PO Last administered on 08/07/20 08:35; Start 08/04/20 at 09:00 Acetaminophen/ Hydrocodone Bitart (Lortab 7.5/325) 1 tab PRN Q6HRS PRN PO MODERATE - SEVERE PAIN Last administered on 08/07/20 10:24; Start 08/04/20 at 08:45 Mirtazapine (Remeron) 7.5 mg HS PO Last administered on 08/06/20 20:47; Start 08/04/20 at 21:00 Montelukast Sodium (Singulair) 10 mg HS PO Last administered on 08/06/20 20:47; Start 08/04/20 at 21:00 Prednisone (Prednisone) 10 mg DAILY PO Last administered on 08/07/20 08:35; Start 08/04/20 at 09:00 Simvastatin (Zocor) 20 mg HS PO Last administered on 08/06/20 20:47; Start 08/04/20 at 21:00 Albuterol Sulfate (Ventolin Hfa) 1 puff [id number] INH Last administered on 07/14 06:38; Start 08/04/20 at 13:00 Fluticasone/ Vilanterol (Breo Ellipta 200-25 Mcg) 1 puff DAILY INH Last administered on 08/07/20 08:34; Start 08/04/20 at 09:00 Calcium/Vitamin D (Oscal D 500mg/ 200uts) 1 tab DAILY PO Last administered on 08/07/20 08:35; Start 08/04/20 at 09:00 Doxazosin Mesylate (Cardura) 8 mg HS PO Last administered on 08/06/20 20:47; Start 08/04/20 at 21:00 Multivitamins (Thera M Plus) 1 tab DAILY PO Last administered on 08/07/20 08:35; Start 08/04/20 at 09:00 Pantoprazole Sodium (Protonix) 40 mg DAILYAC PO Last administered on 08/07/20 06:38; Start 08/04/20 at 09:00 Heparin Sodium (Porcine) (Heparin Sodium) 5,000 unit Q12HR SQ Last administered on 08/07/20 08:37; Start 08/04/20 at 09:00 Primidone (Mysoline) 25 mg [id number] PO Last administered on 08/05/20at 16:49; Start 08/04/20 at 16:00; Stop 08/05/20 at 16:00; Status DC Calcium Carbonate/ Glycine (Tums) 500 mg PRN AFTMEALHC PRN PO INDIGESTION; Start 08/04/20 at 15:15 Vancomycin HCl (Vanco Per Pharmacy) 1 each PRN DAILY PRN MC SEE COMMENTS Last administered on 08/05/20at 11:21; Start 08/05/20 at 08:30; Stop 08/05/20 at 12:57; Status DC Vancomycin HCl 1.75 gm/Sodium Chloride 500 ml @ 250 mls/hr 1X ONCE IV Last administered on 08/05/20at 09:37; Start 08/05/20 at 10:00; Stop 08/05/20 at 11:59; Status DC Vancomycin HCl 1 gm/Sodium Chloride 250 ml @ 250 mls/hr Q24H IV ; Start 08/06/20 at 09:00; Stop 08/05/20 at 12:57; Status DC Vancomycin HCl (Vancomycin Trough Level) 1 each 1X ONCE MC ; Start 08/07/20 at 08:30; Stop 08/05/20 at 12:58; Status DC Sodium Chloride 1,000 ml @ 100 mls/hr Q10H IV Last administered on 08/07/20at 06:39; Start 08/05/20 at 11:30 Primidone (Mysoline) 50 mg [id number] PO Last administered on 08/07/20at 08:37; Start 08/06/20 at 09:00 Multivitamins/ Minerals (I-Jordy) 1 tab DAILY PO ; Start 08/07/20 at 09:00; Status UNV Senna/Docusate Sodium (Senna Plus) 2 tab DAILY10 PO Last administered on 08/07/20at 09:12; Start 08/07/20 at 10:00; Stop 08/07/20 at 10:01; Status DC Senna/Docusate Sodium (Senna Plus) 2 tab DAILYWBKFT PO ; Start 08/08/20 at 08:00 Active Scripts Active Stool Soft-Stimulant Lax Tab (Sennosides/Docusate Sodium) 1 Each Tablet 2 Tab PO DAILYWBKFT 30 Days Mysoline (Primidone) 50 Mg Tablet 50 Mg PO BID 30 Days Acyclovir 200 Mg Capsule 400 Mg PO [id number] 7 Days Prednisone (Prednisone) 10 Mg Tablet 1 Tab PO DAILY 30 Days Hydrocodone-Apap 7.5-325 (Hydrocodone Bit/Acetaminophen) 1 Tab Tablet 1 Tab PO PRN Q6HRS PRN 7 Days Tylenol (Acetaminophen) 325 Mg Tablet 650 Mg PO PRN Q6HRS PRN 30 Days Voltaren (Diclofenac Sodium) 100 Gm Gel..gram. 1 Roz TP BID 30 Days Vitamin B-12 (Cyanocobalamin (Vitamin B-12)) 1,000 Mcg Tablet 1,000 Mcg PO DAILY Reported Mucinex (Guaifenesin) 600 Mg Tablet.er 600 Mg PO BID Fluticasone Propionate Nasal [place] (Fluticasone Propionate) 16 Gm [place].susp 2 [place] NS DAILY Aspir-Low (Aspirin) 81 Mg Tablet.dr 1 Tab PO DAILY Doxazosin Mesylate 8 Mg Tablet 1 Tab PO HS Omeprazole 40 Mg Capsule.dr 1 Cap PO DAILY Calcium 500-Vit D3 600 Tablet (Calcium Carbonate/Vitamin D3) 1 Each Tablet 1 Each PO DAILY Singulair Tablet (Montelukast Sodium) 10 Mg Tablet 10 Mg PO HS Centrum Silver Tablet (Multivits-Min/Fa/Lycopene/Lut) 1 Each Tablet 1 Each PO DAILY Carvedilol (Carvedilol) 3.125 Mg Tablet 1 Tab PO BID Hydralazine Hcl 25 Mg Tablet 1 Tab PO BID Mirtazapine 7.5 Mg Tablet 7.5 Mg PO HS Simvastatin 20 Mg Tablet 20 Mg PO HS Symbicort 160-4.5 Mcg Inhaler (Budesonide/Formoterol Fumarate) 10.2 Gm Hfa.aer.ad 2 Inhaler IH BID Albuterol Sulfate Conc Neb Soln (Albuterol Sulfate) 2.5 Mg/0.5 Ml Vial.neb 2.5 Mg IH [id number] Vitals/I & O Vital Sign - Last 24 Hours 08/06/20 08/06/20 08/06/20 08/06/20 11:00 15:00 17:00 19:00 Temp 97.4 97.7 98.0 97.4 97.7 98.0 Pulse 51 58 72 61 Resp 18 18 20 B/P (MAP) 114/54 (74) 118/58 (78) 118/58 145/66 (92) Pulse Ox 99 98 98 O2 Delivery Room Air Room Air Room Air 08/06/20 08/06/20 08/06/20 08/06/20 20:00 20:47 20:48 23:02 Temp 97.9 97.9 Pulse 61 61 57 Resp 20 B/P (MAP) 145/66 145/66 138/63 (88) Pulse Ox 96 O2 Delivery Room Air Room Air 08/07/20 08/07/20 08/07/20 08/07/20 03:21 07:00 08:00 08:35 Temp 97.5 98.6 97.5 98.6 Pulse 51 52 52 Resp 20 18 B/P (MAP) 116/56 (76) 125/59 (81) 125/59 Pulse Ox 93 98 O2 Delivery Room Air Room Air Room Air 08/07/20 08:36 Pulse 52 B/P (MAP) 125/59 Intake and Output 08/06/20 08/06/20 08/07/20 15:00 23:00 07:00 Intake Total 1000 ml Output Total 450 ml 700 ml Balance -450 ml 1000 ml -700 ml Justicifation of Admission Dx: Justifications for Admission: Justification of Admission Dx: Comment: Sepsis: Infection RAFI JUDD MD Aug 07, 2020 10:47
--- NOTE | 2020-08-07 10:55 | PDOC ---
Infectious Disease Note Subjective: Subjective Patient feels better Vital Signs: Vital Signs Vital Signs Date Time Temp Pulse Resp B/P (MAP) Pulse Ox O2 Delivery O2 Flow Rate FiO2 08/07/20 08:36 52 125/59 08/07/20 08:00 Room Air 08/07/20 07:00 98.6 18 98 98.6 Physical Exam: PHYSICAL EXAM GENERAL: Propped up in bed, alert, no distress HEENT: Normal conjunctivae. Oral cavity clear. Hard of hearing. NECK: Supple. LUNGS: Clear to auscultation. No accessory muscle use. HEART: Normal S1, S2. ABDOMEN: Soft, nontender with bowel sounds present. EXTREMITIES: Trace edema, lower extremities bilaterally. No cyanosis. SKIN: Warm to touch. No signs of rash. NEUROLOGIC: Alert and answering questions appropriately, somewhat forgetful. PIV Medications: Inpatient Meds: Medications reviewed. Labs: Lab Laboratory Tests Test 08/07/20 09:35 Sodium Level 149 mmol/L (136-145) Potassium Level 4.1 mmol/L (3.5-5.1) Chloride Level 113 mmol/L (98-107) Carbon Dioxide Level 24 mmol/L (21-32) Anion Gap 12 (6-14) Blood Urea Nitrogen 28 mg/dL (8-26) Creatinine 1.8 mg/dL (0.7-1.3) Estimated GFR (Cockcroft-Gault) 35.9 Glucose Level 163 mg/dL (70-99) Calcium Level 7.8 mg/dL (8.5-10.1) Objective: Assessment: 1. Bacteremia with gram-positive cocci in clusters suggestive of Staphylococcus, 1/4 bottles, could be contaminant. 2. Acute kidney injury. 3. Chronic obstructive pulmonary disease. 4. Coronary artery disease. 5. Diabetes mellitus type 2. 6. Essential tremor. 7. Right eye blindness. 8. History of fall. Plan: Plan of Care Monitor off antibiotics Continue supportive care AMBER CARRASQUILLO MD Aug 07, 2020 10:55
[2020-08-07 11:09] VITALS: BP 101/46
[2020-08-07 15:20] VITALS: BP 101/45
--- NOTE | 2020-08-07 15:20 | NUR ---
SW following. Discussed with RN, pt from home alone, room air, dysphagia II. PT/OT recommending SNF. Pt is in his copay days. Pt wanted to speak with his family about copay. KRISHAN spoke with Mona (DPOA) they want pt to go to [facility] even though there is a copay. They are working on assisted living for pt. Eileen at [facility] notified. Pt accepted pending insurance auth. RN notified. KRISHAN will continue to follow.
[2020-08-07 19:00] VITALS: BP 125/58
[2020-08-07] MEDS: MONTELUKAST SODIUM 10 MG TABLET. PO SCH (20:28)
[2020-08-07] MEDS: MIRTAZAPINE 7.5 MG TABLET. PO SCH (20:29)
[2020-08-07] MEDS: DOXAZOSIN MESYLATE 4 MG TABLET. PO SCH (20:29)
[2020-08-07] MEDS: SIMVASTATIN 20 MG TABLET PO SCH (20:29)
[2020-08-07 22:57] VITALS: BP 142/65
[2020-08-08 02:43] VITALS: BP 137/63
[2020-08-08 07:39] VITALS: BP 146/76
[2020-08-08] MEDS: FLUTICASONE/VILANTEROL 200/25 INHALER. INH SCH (07:56)
[2020-08-08] MEDS: ALBUTEROL SULFATE 8GM INHALER. INH SCH (07:56)
[2020-08-08] MEDS: FLUTICASONE 50MCG/NASAL SPRAY 16GM BOTTLE. NS SCH (07:56)
[2020-08-08] MEDS: DICLOFENAC SODIUM 1% TOPICAL GEL 100GM TUBE. TP SCH (07:57)
[2020-08-08] MEDS: IV NORMAL SALINE 1000ML BAG 1,000 ML IV SCH (07:57)
[2020-08-08] MEDS: HEPARIN for SUB-Q USE 5,000 UNIT/ML VIAL. SQ SCH (07:58)
[2020-08-08] MEDS: predniSONE 10 MG TABLET PO SCH (07:59)
[2020-08-08] MEDS: PRIMIDONE 50 MG TABLET PO SCH (07:59)
[2020-08-08] MEDS: PANTOPRAZOLE 40 MG TABLET.DR. PO SCH (07:59)
[2020-08-08] MEDS: MULTIVITAMIN with MINERAL TABLET. PO SCH (07:59)
[2020-08-08] MEDS: ASPIRIN ENTERIC COATED 81 MG TABLET.DR. PO SCH (07:59)
[2020-08-08] MEDS: CYANOCOBALAMIN (VITAMIN B-12) 1,000 MCG TABLET. PO SCH (07:59)
[2020-08-08] MEDS: CALCIUM CARB/VIT D3 500/200 TABLET. PO SCH (07:59)
[2020-08-08] MEDS: CARVEDILOL 3.125 MG TABLET. PO SCH (08:00)
[2020-08-08] MEDS ORDERED: SENNOSIDES/DOCUSATE 8.6/50MG TABLET. PO SCH (08:00)
[2020-08-08] MEDS: hydrALAZINE 25 MG TABLET PO SCH (08:00)
--- NOTE | 2020-08-08 08:29 | PDOC ---
Infectious Disease Note Subjective: Subjective Patient feels better Awaiting transfer to [facility] Vital Signs: Vital Signs Vital Signs Date Time Temp Pulse Resp B/P (MAP) Pulse Ox O2 Delivery O2 Flow Rate FiO2 08/08/20 08:00 58 146/76 08/08/20 07:39 97.7 18 95 Room Air 97.7 Physical Exam: PHYSICAL EXAM GENERAL: Propped up in bed, alert, no distress HEENT: Normal conjunctivae. Oral cavity clear. Hard of hearing. NECK: Supple. LUNGS: Clear to auscultation. No accessory muscle use. HEART: Normal S1, S2. ABDOMEN: Soft, nontender with bowel sounds present. EXTREMITIES: Trace edema, lower extremities bilaterally. No cyanosis. SKIN: Warm to touch. No signs of rash. NEUROLOGIC: Alert and answering questions appropriately, somewhat forgetful. PIV Medications: Inpatient Meds: Medications reviewed. Labs: Lab Laboratory Tests Test 08/07/20 09:35 Sodium Level 149 mmol/L (136-145) Potassium Level 4.1 mmol/L (3.5-5.1) Chloride Level 113 mmol/L (98-107) Carbon Dioxide Level 24 mmol/L (21-32) Anion Gap 12 (6-14) Blood Urea Nitrogen 28 mg/dL (8-26) Creatinine 1.8 mg/dL (0.7-1.3) Estimated GFR (Cockcroft-Gault) 35.9 Glucose Level 163 mg/dL (70-99) Calcium Level 7.8 mg/dL (8.5-10.1) Objective: Assessment: 1. Bacteremia with gram-positive cocci in clusters suggestive of Staphylococcus, 1/4 bottles, could be contaminant. 2. Acute kidney injury. 3. Chronic obstructive pulmonary disease. 4. Coronary artery disease. 5. Diabetes mellitus type 2. 6. Essential tremor. 7. Right eye blindness. 8. History of fall. Plan: Plan of Care Monitor off antibiotics Continue supportive care AMBER CARRASQUILLO MD Aug 08, 2020 08:28
--- NOTE | 2020-08-08 08:29 | PDOC ---
IM PROGRESS NOTES- Subjective Subjective No complaints of pain or dyspnea. He is feeling better. Objective Vitals/I&O Vital Signs Date Time Temp Pulse Resp B/P (MAP) Pulse Ox O2 Delivery O2 Flow Rate FiO2 08/08/20 08:00 58 146/76 08/08/20 07:39 97.7 18 95 Room Air 97.7 I & O 08/07/20 08/07/20 08/08/20 15:00 23:00 07:00 Intake Total 420 ml 300 ml 1600 ml Output Total 300 ml 550 ml Balance 120 ml 300 ml 1050 ml Physical Exam Physical Exam General appearance - alert, chronically ill appearing, and in no distress and oriented to person, place, and time Mental Status - alert, oriented to person, place, and time, affect appropriate to mood Head - normal Chest -decreased breath sounds at bases Heart - S1 and S2 normal Abdomen - soft, nontender Neurological - alert and oriented, forgetful Musculoskeletal -generalized weakness, tremors Extremities - no pedal edema Labs Laboratory Tests Test 08/07/20 09:35 Sodium Level 149 mmol/L (136-145) H Potassium Level 4.1 mmol/L (3.5-5.1) Chloride Level 113 mmol/L (98-107) H Carbon Dioxide Level 24 mmol/L (21-32) Anion Gap 12 (6-14) Blood Urea Nitrogen 28 mg/dL (8-26) H Creatinine 1.8 mg/dL (0.7-1.3) H Estimated GFR (Cockcroft-Gault) 35.9 Glucose Level 163 mg/dL (70-99) H Calcium Level 7.8 mg/dL (8.5-10.1) L Laboratory Tests 08/07/20 09:35 Meds Current Medications Medications (Trade) Dose Ordered Sig/Juhi Route PRN Reason Start Time Stop Time Status Last Admin Dose Admin Senna/Docusate Sodium (Senna Plus) 2 tab DAILY10 PO 08/07/20 10:00 08/07/20 10:01 DC 08/07/20 09:12 Senna/Docusate Sodium (Senna Plus) 2 tab DAILYWBKFT PO 08/08/20 08:00 08/08/20 07:59 Assessment Assessment Problems Medical Problems: (1) Dehydration Status: Acute (2) Tremor, unspecified Status: Acute IMPRESSION:Positive blood c/s 1/ gram positive cocci 1. Acute renal failure with chronic kidney disease 3 with baseline creatinine of 1.6. This is due to poor oral intake. The patient has stated that she has not been eating much. 2. Fever. Monitor. Chest x-ray did not show any acute changes. Urinalysis is negative. 3. Chronic obstructive pulmonary disease. 4. Coronary artery disease status post placement of two stents. 5. History of diabetes mellitus. 6. Hypertension with chronic kidney disease 3. 7. Physical deconditioning. 8. Tremors. The patient denies using breathing treatments. 9. Carotid artery disease. 10. Osteoarthritis. 11. History of L3 compression fracture. 12. Anemia. 13. Anxiety. PLAN: Acute renal failure with CKD-improving slowly. Continue IV fluids. Creatinine decreased to 1.8. sodium 149. Baseline creatinine is 1.6. Eating well. Discontinue IV normal saline. This will help his sodium level. Low-grade fever and blood cultures 1 out of 4 positive. Blood culture shows staph. ID pending. Possibly contamination. Patient was given 1 dose of IV vancomycin. Stopped because of CARMELINA. Consulted Dr. Melton for infectious disease evaluation and management. Essential tremors-Dr. De Jesus started him on primidone. Admit to [facility]. Continue IV fluids. Order PT, OT. Consult Dr. De Jesus for neurology evaluation and management. Generalized weakness-PT/OT. Patient will benefit from placement in prison unit. Doing better. Discussed with the patient's daughter and her yesterday extensively. Once patient is discharged from prison unit they would like to put him in an assisted living facility. Discharge today to prison unit. Discharge management 35 minutes. Plan Plan For more details regarding further plans, please refer to the orders. Justifications for Admission Other Justification MARCELLUS FIERRO MD Aug 08, 2020 08:29
--- NOTE | 2020-08-08 09:59 | NUR ---
SW following. Discussed with RN, pt accepted at [facility], pending insurance auth. No auth as of yet. KRISHAN will continue to follow. Addendum: 08/08/20 at 1011 by ANANYA HEDRICK SW Insurance approved transfer to [facility] SNF. Transportation arranged with [facility] transport for 11am. RN and family notified. No further SW needs.
--- NOTE | 2020-08-08 10:03 | PDOC ---
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 No evidence of stroke, myelopathy, or radiculopathy. With the hyporeflexia there may be a component of neuropathy. Acute renal failure with chronic kidney disease, fever, chronic obstructive pulmonary disease, coronary artery disease, diabetes, hypertension, carotid disease, right eye blindness, left eye macular degeneration, osteoarthritis, L3 compression fracture history, anemia, anxiety Plan Contrinue Primidone 50 mg twice a day Physical and Occupational Therapy Treat medical issues. Needs SNU Follow-up with [facility] in 6 weeks. Subjective No complaints Objective Vital Signs Date Time Temp Pulse Resp B/P (MAP) Pulse Ox O2 Delivery O2 Flow Rate FiO2 08/08/20 08:00 58 146/76 08/08/20 07:39 97.7 18 95 Room Air 97.7 Intake and Output 08/08/20 07:00 Intake Total 2320 ml Output Total 850 ml Balance 1470 ml Intake Oral 1320 ml IV Total 1000 ml Output Urine Total 850 ml # Voids 2 # Bowel Movements 1 PHYSICAL EXAM Alert. Oriented to time, place and person. Blind in the right eye, pupil not reactive, decreased visual acuity in the left eye. Wearing dark glasses EOMI. CN: no focal findings. Muscle tone: normal. Muscle strength: 4/5 DTR: 0-1+ Plantar reflex: Flexor Gait: not examined in bed. Sensory exam: Stocking loss. No cerebellar signs elicited. Mild postural tremor Review of Relevant I have reviewed the following items tawnya (where applicable) has been applied. Labs Laboratory Tests Test 08/07/20 09:35 Sodium Level 149 mmol/L (136-145) Potassium Level 4.1 mmol/L (3.5-5.1) Chloride Level 113 mmol/L (98-107) Carbon Dioxide Level 24 mmol/L (21-32) Anion Gap 12 (6-14) Blood Urea Nitrogen 28 mg/dL (8-26) Creatinine 1.8 mg/dL (0.7-1.3) Estimated GFR (Cockcroft-Gault) 35.9 Glucose Level 163 mg/dL (70-99) Calcium Level 7.8 mg/dL (8.5-10.1) Microbiology 08/05/20 Blood Culture - Preliminary, Resulted NO GROWTH AFTER 2 DAYS Medications Current Medications Sodium Chloride 1,000 ml @ 1,000 mls/hr 1X ONCE IV Last administered on 08/03/20 22:17; Start 08/03/20 at 22:00; Stop 08/03/20 at 22:59; Status DC Sodium Chloride 1,000 ml @ 100 mls/hr Q10H IV Last administered on 08/04/20at 00:12; Start 08/03/20 at 23:00; Stop 08/04/20 at 22:59; Status DC Acetaminophen (Tylenol) 650 mg PRN Q6HRS PRN PO MILD PAIN 1-3; Start 08/04/20 at 08:45 Aspirin (Ecotrin) 81 mg DAILY PO Last administered on 08/08/20 07:59; Start 08/04/20 at 09:00 Carvedilol (Coreg) 3.125 mg BIDWMEALS PO Last administered on 08/08/20 08:00; Start 08/04/20 at 09:00 Cyanocobalamin (Vitamin B-12) 1,000 mcg DAILY PO Last administered on 08/08/20 07:59; Start 08/04/20 at 09:00 Diclofenac Sodium (Voltaren) 1 roz BID TP Last administered on 08/08/20 07:57; Start 08/04/20 at 09:00 Fluticasone Propionate (Flonase) 2 spray DAILY NS Last administered on 08/08/20 07:56; Start 08/04/20 at 09:00 Guaifenesin (Mucinex) 600 mg BID PO Last administered on 08/08/20 07:59; Start 08/04/20 at 09:00 Hydralazine HCl (Apresoline) 25 mg BID PO Last administered on 08/08/20 08:00; Start 08/04/20 at 09:00 Acetaminophen/ Hydrocodone Bitart (Lortab 7.5/325) 1 tab PRN Q6HRS PRN PO MODERATE - SEVERE PAIN Last administered on 08/07/20at 20:30; Start 08/04/20 at 08:45 Mirtazapine (Remeron) 7.5 mg HS PO Last administered on 08/07/20 20:29; Start 08/04/20 at 21:00 Montelukast Sodium (Singulair) 10 mg HS PO Last administered on 08/07/20 20:28; Start 08/04/20 at 21:00 Prednisone (Prednisone) 10 mg DAILY PO Last administered on 08/08/20 07:59; Start 08/04/20 at 09:00 Simvastatin (Zocor) 20 mg HS PO Last administered on 08/07/20 20:29; Start 08/04/20 at 21:00 Albuterol Sulfate (Ventolin Hfa) 1 puff [id number] INH Last administered on 08/08/20 07:56; Start 08/04/20 at 13:00 Fluticasone/ Vilanterol (Breo Ellipta 200-25 Mcg) 1 puff DAILY INH Last administered on 08/08/20 07:56; Start 08/04/20 at 09:00 Calcium/Vitamin D (Oscal D 500mg/ 200uts) 1 tab DAILY PO Last administered on 08/08/20 07:59; Start 08/04/20 at 09:00 Doxazosin Mesylate (Cardura) 8 mg HS PO Last administered on 08/07/20 20:29; Start 08/04/20 at 21:00 Multivitamins (Thera M Plus) 1 tab DAILY PO Last administered on 08/08/20 07:59; Start 08/04/20 at 09:00 Pantoprazole Sodium (Protonix) 40 mg DAILYAC PO Last administered on 08/08/20 07:59; Start 08/04/20 at 09:00 Heparin Sodium (Porcine) (Heparin Sodium) 5,000 unit Q12HR SQ Last administered on 08/08/20 07:58; Start 08/04/20 at 09:00 Primidone (Mysoline) 25 mg [id number] PO Last administered on 08/05/20 16:49; Start 08/04/20 at 16:00; Stop 08/05/20 at 16:00; Status DC Calcium Carbonate/ Glycine (Tums) 500 mg PRN AFTMEALHC PRN PO INDIGESTION Last administered on 08/07/20 15:52; Start 08/04/20 at 15:15 Vancomycin HCl (Vanco Per Pharmacy) 1 each PRN DAILY PRN MC SEE COMMENTS Last administered on 08/05/20at 11:21; Start 08/05/20 at 08:30; Stop 08/05/20 at 12:57; Status DC Vancomycin HCl 1.75 gm/Sodium Chloride 500 ml @ 250 mls/hr 1X ONCE IV Last administered on 08/05/20at 09:37; Start 08/05/20 at 10:00; Stop 08/05/20 at 11:59; Status DC Vancomycin HCl 1 gm/Sodium Chloride 250 ml @ 250 mls/hr Q24H IV ; Start 08/06/20 at 09:00; Stop 08/05/20 at 12:57; Status DC Vancomycin HCl (Vancomycin Trough Level) 1 each 1X ONCE MC ; Start 08/07/20 at 08:30; Stop 08/05/20 at 12:58; Status DC Sodium Chloride 1,000 ml @ 100 mls/hr Q10H IV Last administered on 08/08/20at 07:57; Start 08/05/20 at 11:30; Stop 08/08/20 at 08:32; Status DC Primidone (Mysoline) 50 mg [id number] PO Last administered on 08/08/20at 07:59; Start 08/06/20 at 09:00 Multivitamins/ Minerals (I-Jordy) 1 tab DAILY PO ; Start 08/07/20 at 09:00; Status UNV Senna/Docusate Sodium (Senna Plus) 2 tab [id number] PO Last administered on 08/07/20at 09:12; Start 08/07/20 at 10:00; Stop 08/07/20 at 10:01; Status DC Senna/Docusate Sodium (Senna Plus) 2 tab [id number] PO Last administered on 08/08/20at 07:59; Start 08/08/20 at 08:00 Active Scripts Active Stool Soft-Stimulant Lax Tab (Sennosides/Docusate Sodium) 1 Each Tablet 2 Tab PO [id number] 30 Days Mysoline (Primidone) 50 Mg Tablet 50 Mg PO BID 30 Days Acyclovir 200 Mg Capsule 400 Mg PO [id number] 7 Days Prednisone (Prednisone) 10 Mg Tablet 1 Tab PO DAILY 30 Days Hydrocodone-Apap 7.5-325 (Hydrocodone Bit/Acetaminophen) 1 Tab Tablet 1 Tab PO PRN Q6HRS PRN 7 Days Tylenol (Acetaminophen) 325 Mg Tablet 650 Mg PO PRN Q6HRS PRN 30 Days Voltaren (Diclofenac Sodium) 100 Gm Gel..gram. 1 Roz TP BID 30 Days Vitamin B-12 (Cyanocobalamin (Vitamin B-12)) 1,000 Mcg Tablet 1,000 Mcg PO DAILY Reported Mucinex (Guaifenesin) 600 Mg Tablet.er 600 Mg PO BID Fluticasone Propionate Nasal [place] (Fluticasone Propionate) 16 Gm [place].susp 2 [place] NS DAILY Aspir-Low (Aspirin) 81 Mg Tablet. 1 Tab PO DAILY Doxazosin Mesylate 8 Mg Tablet 1 Tab PO HS Omeprazole 40 Mg Capsule. 1 Cap PO DAILY Calcium 500-Vit D3 600 Tablet (Calcium Carbonate/Vitamin D3) 1 Each Tablet 1 Each PO DAILY Singulair Tablet (Montelukast Sodium) 10 Mg Tablet 10 Mg PO HS Centrum Silver Tablet (Multivits-Min/Fa/Lycopene/Lut) 1 Each Tablet 1 Each PO DAILY Carvedilol (Carvedilol) 3.125 Mg Tablet 1 Tab PO BID Hydralazine Hcl 25 Mg Tablet 1 Tab PO BID Mirtazapine 7.5 Mg Tablet 7.5 Mg PO HS Simvastatin 20 Mg Tablet 20 Mg PO HS Symbicort 160-4.5 Mcg Inhaler (Budesonide/Formoterol Fumarate) 10.2 Gm Hfa.aer.ad 2 Inhaler IH BID Albuterol Sulfate Conc Neb Soln (Albuterol Sulfate) 2.5 Mg/0.5 Ml Vial.neb 2.5 Mg IH [id number] Vitals/I & O Vital Sign - Last 24 Hours 08/07/20 08/07/20 08/07/20 08/07/20 11:09 15:20 17:07 19:00 Temp 97.8 98.0 97.8 97.8 98.0 97.8 Pulse 55 56 56 63 Resp 20 20 17 B/P (MAP) 101/46 (64) 101/45 (63) 101/45 125/58 (80) Pulse Ox 96 95 98 O2 Delivery Room Air Room Air Room Air 08/07/20 08/07/20 08/07/20 08/07/20 20:05 20:29 20:30 22:57 Temp 97.7 97.7 Pulse 63 63 61 Resp 18 B/P (MAP) 125/58 125/58 142/65 (90) Pulse Ox 94 O2 Delivery Room Air Room Air 08/08/20 08/08/20 08/08/20 08/08/20 02:43 07:39 08:00 08:00 Temp 97.8 97.7 97.8 97.7 Pulse 101 58 58 58 Resp 18 18 B/P (MAP) 137/63 (87) 146/76 (99) 146/76 146/76 Pulse Ox 95 95 O2 Delivery Room Air Room Air Intake and Output 08/07/20 08/07/20 08/08/20 15:00 23:00 07:00 Intake Total 420 ml 300 ml 1600 ml Output Total 300 ml 550 ml Balance 120 ml 300 ml 1050 ml Justicifation of Admission Dx: Justifications for Admission: Justification of Admission Dx: Comment: Sepsis: Infection RAFI JUDD MD Aug 08, 2020 10:03
[2020-08-08 11:04] VITALS: BP 114/48
--- NOTE | 2020-08-08 11:16 | NUR ---
Pt was read discharge instructions, and had no comments/concerns. Pt's IV was taken out, and heart monitor taken off. Our transportation got pt and took him to [facility]. Pt was stable when leaving unit.
== END 2020-08-08 11:15 | DRG 683 ==
LOC: ER 19:47 → 6 SOUTH 21:53
PROVIDERS: ADMIT Internal Medicine; ATTEND Internal Medicine
DX: N17.9 Acute kidney failure, unspecified (principal); I13.0 Hypertensive heart and chronic kidney disease with heart failure and stage 1 through stage 4 chronic kidney disease, or unspecified chronic kidney disease; R78.81 Bacteremia; G25.0 Essential tremor; N18.30 Chronic kidney disease, stage 3 unspecified; J44.9 Chronic obstructive pulmonary disease, unspecified; I25.10 Atherosclerotic heart disease of native coronary artery without angina pectoris; I50.9 Heart failure, unspecified; E11.319 Type 2 diabetes mellitus with unspecified diabetic retinopathy without macular edema; M19.90 Unspecified osteoarthritis, unspecified site; D64.9 Anemia, unspecified; F41.9 Anxiety disorder, unspecified; H35.30 Unspecified macular degeneration; H54.61 Unqualified visual loss, right eye, normal vision left eye; E78.00 Pure hypercholesterolemia, unspecified; E11.22 Type 2 diabetes mellitus with diabetic chronic kidney disease; E86.0 Dehydration; E78.5 Hyperlipidemia, unspecified; F03.90 Unspecified dementia, unspecified severity, without behavioral disturbance, psychotic disturbance, mood disturbance, and anxiety; N40.0 Benign prostatic hyperplasia without lower urinary tract symptoms; Z95.5 Presence of coronary angioplasty implant and graft; Z91.81 History of falling; Z87.891 Personal history of nicotine dependence; I25.2 Old myocardial infarction; Z88.8 Allergy status to other drugs, medicaments and biological substances; Z20.822 Contact with and (suspected) exposure to COVID-19
CPT/HCPCS: 36415; 71045; 80048; 80053; 81001; 82553; 83735; 84484; 85025; 87040; 87077; 87205; 87426; 93005; 96360; 99285; J1644; J3370; J7030; J7040; J7512; U0003; U0005; 97110-GP; 97116-GP; 97530-GP; 97535-GO; G0378